=== PATIENT | female | born 1930 | race Caucasian/White ===

== ENCOUNTER → 2016-06-06 | Outpatient (CLI) | payer MEDICARE, BC | END | disposition home or self-care (01) | LOC: LABWHC1 15:23 | PROVIDERS: ATTEND Internal Medicine Gastroenterology | DX: K52.9 Noninfective gastroenteritis and colitis, unspecified (principal) | CPT/HCPCS: 36415; 83516; 85652; 86140 ==

== ENCOUNTER → 2017-03-06 | Outpatient (CLI) | payer MEDICARE, BC ==
--- NOTE | 2017-03-23 22:53 | EM ---
EVENT MONITOR There were several transmissions noted. Most of the transmissions revealed atrial fibrillation. There were episodes of bradycardia with pause of about 3.3 seconds to begin with. Apparently patient was on a beta larissa at that time, and once the beta larissa was discontinued around the then patient was in atrial fib with a controlled rate without any significant pauses. The longest pause that was noted was about 3.3 seconds that occurred in the 03/08/2017, and another one of 2.8 seconds occurred on the 03/15/2017. However after the when beta larissa was discontinued, patient did not have any further pauses, but remained in atrial fib with a controlled rate. Preliminary results were discussed with Dr. Koko Gold. MMBONIFACIO / NOAMN: [id number] /
== END | disposition home or self-care (01) ==
LOC: RADECHMAIN 11:54
PROVIDERS: ATTEND Internal Medicine
DX: I48.91 Unspecified atrial fibrillation (principal)
CPT/HCPCS: 93270; 93271

== ENCOUNTER → 2017-06-02 | Outpatient (CLI) | payer MEDICARE, BC ==
--- NOTE | 2017-06-02 14:01 | US ---
EXAMINATION TYPE: US venous doppler duplex LE RT DATE OF EXAM: 06/02/2017 12:55 PM COMPARISON: NONE CLINICAL HISTORY: I87.2 V LOWER EXTREMITY VENOUS INSUFFICIENCY, swelling and edema lateral mathis SIDE PERFORMED: right 1) Color flow is present and patency is documented in the following vessels. No DVT or SVT is noted . EIV Common Femoral Vein Deep Femoral Vein Femoral Vein Popliteal Vein Proximal Calf Veins Greater Saph Vein Upper Small Saph Vein 2) There is venous reflux noted at the following venous levels: Junction of GSV and LSV GSV at knee Generalized subcutaneous edema in the area of patient's stated pain over the right lateral mathis. IMPRESSION: 1. No sonographic evidence of deep venous thrombosis within the right lower extremity. 2. Venous reflux noted at the junction of the great saphenous vein and lesser saphenous vein and grea ter saphenous vein at the knee. 3. Generalized subcutaneous edema, moderate in degree over the lateral mathis in the patient's area of pain.
== END | disposition home or self-care (01) ==
LOC: RADUSWWP 12:21
PROVIDERS: ATTEND Internal Medicine
DX: I87.2 Venous insufficiency (chronic) (peripheral) (principal); I87.301 Chronic venous hypertension (idiopathic) without complications of right lower extremity

== ENCOUNTER → 2017-07-22 | Outpatient (CLI) | payer MEDICARE, BC ==
[2017-07-22 09:35] LABS: Calcium 9.3 mg/dL (8.4-10.2); Magnesium 2.3 mg/dL (1.6-2.3); Potassium 4.5 mmol/L (3.5-5.1)
[2017-07-22 09:50] LABS: T4, Free (Free Thyroxine) 1.29 ng/dL (0.78-2.19)
== END | disposition home or self-care (01) ==
LOC: LABWHC1 08:42
PROVIDERS: ATTEND Internal Medicine Endocrinology, Diabetes & Metabolism
DX: M81.0 Age-related osteoporosis without current pathological fracture (principal); E89.0 Postprocedural hypothyroidism
CPT/HCPCS: 36415; 80048; 82306; 83735; 84439; 84443

== ENCOUNTER 2017-12-03 17:03 | Inpatient (IN) | payer MEDICARE, BC ==
[2017-12-03] MEDS ORDERED: ASPIRIN 81 MG PO STA (17:42)
[2017-12-03] MEDS ORDERED: NITROGLYCERIN OINT 1 INCH/GM PACKET TOPICAL STA (17:42)
[2017-12-03] MEDS ORDERED: FUROSEMIDE 10 MG/ML 2 ML VIAL IV STA (17:42)
--- NOTE | 2017-12-03 17:44 | ED ---
General Adult HPI - General Chief complaint: Shortness of Breath Stated complaint: DMITRI Time Seen by Provider: 12/03/17 17:10 Source: patient, RN notes reviewed Mode of arrival: wheelchair Limitations: no limitations - History of Present Illness Initial comments: This is an 87-year-old female presents emergency Department complaining of difficulty breathing for 4 days. Patient states she has a history of atrial fibrillation is on Coumadin for that. Patient also states she's had a stent in the past. Patient states along with the difficulty breathing she's had some chest pain. Patient states been intermittent since . Patient denies any radiation of the pain. Patient denies any recent fever chills or cough. Patient denies any diaphoresis. Patient denies any nausea vomiting diarrhea. Patient denies any abdominal pain. Patient denies being lightheaded or dizzy or having any near syncopal episode. - Related Data Home Medications Medication Instructions Recorded Confirmed ALPRAZolam [Xanax] 0.5 mg PO HS 12/03/17 12/03/17 Acetaminophen-Codeine 300-30mg 1 - 2 tab PO Q6H PRN 12/03/17 12/03/17 [Tylenol w/codeine #3] Carvedilol [Coreg] 3.125 mg PO BID 12/03/17 12/03/17 Ergocalciferol (Vitamin D2) 50,000 unit PO SA 12/03/17 12/03/17 [Vitamin D2] Furosemide [Lasix] 20 mg PO Q48H 12/03/17 12/03/17 Furosemide [Lasix] 40 mg PO Q48H 12/03/17 12/03/17 Isosorbide Mononitrate ER [Imdur] 30 mg PO DAILY 12/03/17 12/03/17 Latanoprost [Xalatan 0.005%] 1 drop BOTH EYES HS 12/03/17 12/03/17 Levothyroxine Sodium 112 mcg PO DAILY 12/03/17 12/03/17 Lisinopril [Zestril] 20 mg PO DAILY 12/03/17 12/03/17 Nitroglycerin Sl Tabs [Nitrostat] 0.4 mg SUBLINGUAL Q5M PRN 12/03/17 12/03/17 Pantoprazole Sodium [Protonix] 40 mg PO DAILY 12/03/17 12/03/17 Potassium Chloride [Klor-Con 10 meq PO DAILY 12/03/17 12/03/17 Sprinkle] Pravastatin Sodium [Pravachol] 40 mg PO HS 12/03/17 12/03/17 Ranitidine HCl 150 mg PO DAILY 12/03/17 12/03/17 Warfarin [Coumadin] 1 mg PO SUMOTUWEFRSA 12/03/17 12/03/17 Warfarin [Coumadin] 2 mg PO TH 12/03/17 12/03/17 methylPREDNISolone [Medrol Dose See Taper PO DIRECTED 12/03/17 12/03/17 Pack] Allergies Allergy/AdvReac Type Severity Reaction Status Date / Time brimonidine [From Simbrinza] Allergy Unknown Verified 12/03/17 17:50 brinzolamide [From Simbrinza] Allergy Unknown Verified 12/03/17 17:50 Review of Systems ROS Statement: Those systems with pertinent positive or pertinent negative responses have been documented in the HPI. ROS Other: All systems not noted in ROS Statement are negative. Past Medical History Past Medical History: Atrial Fibrillation, Coronary Artery Disease (CAD), Chest Pain / Angina, GERD/Reflux, Hyperlipidemia, Hypertension, Thyroid Disorder History of Any Multi-Drug Resistant Organisms: None Reported Past Surgical History: Heart Catheterization With Stent, Orthopedic Surgery Past Psychological History: No Psychological Hx Reported Smoking Status: Former smoker Past Alcohol Use History: None Reported Past Drug Use History: None Reported General Exam - General Exam Comments Initial Comments: GENERAL: Patient is well-developed and well-nourished. Patient is nontoxic and well- hydrated and is in mild distress. ENT: Neck is soft and supple. No significant lymphadenopathy is noted. Oropharynx is clear. Moist mucous membranes. Neck has full range of motion without eliciting any pain. EYES: The sclera were anicteric and conjunctiva were pink and moist. Extraocular movements were intact and pupils were equal round and reactive to light. Eyelids were unremarkable. PULMONARY: Unlabored respirations. Good breath sounds bilaterally. No audible rales rhonchi or wheezing was noted. CARDIOVASCULAR: There is a regular rate and rhythm without any murmurs gallops or rubs. ABDOMEN: Soft and nontender with normal bowel sounds. No palpable organomegaly was noted. There is no palpable pulsatile mass. SKIN: Skin is clear with no lesions or rashes and otherwise unremarkable. NEUROLOGIC: Patient is alert and oriented x3. Cranial nerves II through XII are grossly intact. Motor and sensory are also intact. Normal speech, volume and content. Symmetrical smile. MUSCULOSKELETAL: Normal extremities with adequate strength and full range of motion. 2+ edema to the right leg and 1+ edema to the left leg LYMPHATICS: No significant lymphadenopathy is noted PSYCHIATRIC: Normal psychiatric evaluation. Limitations: no limitations Course Vital Signs 12/03/17 17:08 Temperature 98.1 F Pulse Rate 87 Respiratory 20 Rate Blood Pressure 197/79 O2 Sat by Pulse 96 Oximetry Medical Decision Making - Medical Decision Making EKG shows atrial for ablation with rapid ventricular response at 107 bpm QRS is 80 QT interval is 292 QTC is 389. Patient's EKG shows no ST segment elevation or depression or T wave abnormalities are noted Chest x-ray shows pulmonary edema. I gave the patient Lasix Nitropaste in the emergency department. I spoke with some physicians admitted the patient I wrote admitting orders I continued Nitropaste and Lasix on the floor. I consult to cardiology. - Lab Data Result diagrams: 12/03/17 17:43 12/03/17 17:43 Lab Results 12/03/17 12/03/17 Range/Units 17:43 17:43 WBC 8.2 (3.8-10.6) k/uL RBC 3.58 L (3.80-5.40) m/uL Hgb 10.4 L (11.4-16.0) gm/dL Hct 33.5 L (34.0-46.0) % MCV 93.7 (80.0-100.0) fL MCH 29.2 (25.0-35.0) pg MCHC 31.1 (31.0-37.0) g/dL RDW 14.8 (11.5-15.5) % Plt Count 279 (150-450) k/uL Neutrophils % 88 % Lymphocytes % 7 % Monocytes % 4 % Eosinophils % 1 % Basophils % 0 % Neutrophils # 7.2 (1.3-7.7) k/uL Lymphocytes # 0.6 L (1.0-4.8) k/uL Monocytes # 0.3 (0-1.0) k/uL Eosinophils # 0.0 (0-0.7) k/uL Basophils # 0.0 (0-0.2) k/uL Hypochromasia Slight Sodium 141 (137-145) mmol/L Potassium 5.1 (3.5-5.1) mmol/L Chloride 108 H (98-107) mmol/L Carbon Dioxide 24 (22-30) mmol/L Anion Gap 9 mmol/L BUN 52 H (7-17) mg/dL Creatinine 1.57 H (0.52-1.04) mg/dL Est GFR (CKD-EPI)AfAm 34 (>60 ml/min/1.73 sqM) Est GFR (CKD-EPI)NonAf 30 (>60 ml/min/1.73 sqM) Glucose 109 H (74-99) mg/dL Calcium 8.0 L (8.4-10.2) mg/dL Magnesium 2.4 H (1.6-2.3) mg/dL Total Bilirubin 0.4 (0.2-1.3) mg/dL AST 37 H (14-36) U/L ALT 38 (9-52) U/L Alkaline Phosphatase 66 (38-126) U/L Total Protein 6.8 (6.3-8.2) g/dL Albumin 3.8 (3.5-5.0) g/dL Critical Care Time Critical Care Time: Yes Total Critical Care Time: 35 Disposition Clinical Impression: Acute pulmonary edema Disposition: ADMITTED IP TO THIS HOSP Referrals: Koko Gold MD [Primary Care Provider] - 1-2 days Time of Disposition: 18:19
[2017-12-03 18:00] LABS: Basophils % (A) 0 %; Eosinophils % (A) 1 %; HCT 33.5 % (34.0-46.0); HGB 10.4 gm/dL (11.4-16.0); Hypochromasia Slight; Lymphocytes # (A) 0.6 k/uL (1.0-4.8); Lymphocytes % (A) 7 %; MCH 29.2 pg (25.0-35.0); MCHC 31.1 g/dL (31.0-37.0); MCV 93.7 fL (80.0-100.0); Mean Platelet Volume 7.2; Monocytes # (A) 0.3 k/uL (0-1.0); Monocytes % (A) 4 %; Neutrophils # (A) 7.2 k/uL (1.3-7.7); Neutrophils % (A) 88 %; Platelet Count 279 k/uL (150-450); RBC 3.58 m/uL (3.80-5.40); RDW 14.8 % (11.5-15.5); WBC 8.2 k/uL (3.8-10.6)
[2017-12-03 18:11] LABS: Albumin 3.8 g/dL (3.5-5.0); Magnesium 2.4 mg/dL (1.6-2.3); Potassium 5.1 mmol/L (3.5-5.1); Total Bilirubin 0.4 mg/dL (0.2-1.3); Total Protein 6.8 g/dL (6.3-8.2)
--- NOTE | 2017-12-03 18:11 | XR ---
EXAMINATION TYPE: XR chest 2V DATE OF EXAM: 12/03/2017 COMPARISON: Chest x-ray November 10, 2012 HISTORY: History of asthma and atrial fibrillation with dyspnea. TECHNIQUE: Frontal and lateral views of the chest are obtained. FINDINGS: There is chronic parenchymal change with new central vascular congestion and small bilater al pleural effusions. The cardiac silhouette size is enlarged. The osseous structures remain demin eralized. IMPRESSION: Correlate for CHF exacerbation as there is cardiomegaly with central vascular congestion and small bilateral pleural effusions.
[2017-12-03 18:18] LABS: INR 1.4 (<1.2); Prothrombin Time 13.1 sec (9.0-12.0)
[2017-12-03 18:32] LABS: Creatine Kinase MB 1.4 ng/mL (0.0-2.4); Troponin I 0.026 ng/mL (0.000-0.034)
[2017-12-03] MEDS ORDERED: NITROGLYCERIN SL TABS 0.4 MG TAB SUBLINGUAL PRN (19:05)
[2017-12-03] MEDS ORDERED: NALOXONE 0.4 MG/ML 1 ML VIAL IV PRN (19:08)
[2017-12-03] MEDS ORDERED: MORPHINE SULFATE 2 MG/ML SYRINGE IVP STA (20:43)
[2017-12-03] MEDS ORDERED: MORPHINE SULFATE 2 MG/ML SYRINGE IVP PRN (20:45)
[2017-12-03] MEDS ORDERED: ALPRAZolam 0.5 MG TAB PO SCH (21:00)
[2017-12-03] MEDS ORDERED: WARFARIN 2 MG TAB PO ONE (22:00)
--- NOTE | 2017-12-03 22:02 | US ---
EXAMINATION TYPE: US venous doppler duplex LE RT DATE OF EXAM: 12/03/2017 9:55 PM COMPARISON: Right lower extremity venous ultrasound June 02, 2017 CLINICAL HISTORY: tenderness, recent surgery, r/o blood clot . Right knee replacement 10/10/17. Pain and edema right knee. Patient on Coumadin - AFIB SIDE PERFORMED: right TECHNIQUE: The lower extremity deep venous system is examined utilizing real time linear array sonog adriana with graded compression, doppler sonography and color-flow sonography. VESSELS IMAGED: External Iliac Vein (EIV) Common Femoral Vein Deep Femoral Vein Greater Saphenous Vein * Femoral Vein Popliteal Vein Small Saphenous Vein * Proximal Calf Veins (* superficial vessels) Right Leg: No evidence of DVT as visualized. Grayscale, color doppler, spectral doppler imaging performed of the deep veins of the right lower ext remity. There is normal flow, compressibility, vascular waveforms. IMPRESSION: No ultrasound evidence for acute DVT in the right lower extremity.
--- NOTE | 2017-12-03 22:05 | P.HPIM ---
History of Present Illness H&P Date: 12/03/17 Chief Complaint: DMITRI of 3-4 days duration 87 year old female with history of Afib on coumadin, hypertension, CAD s/p stent patient presented with 3-4 days history of new onset DMITRI, limiting her activity , which got worse over the past 3 days. she reports history of asthma, but currently is not treated and has not had a flare up in many years. she does not even take any inhalers. She has noticed worsening bilateral leg swelling over the past week . she denies any history of CHF, she denies any chest pain, but does feel tight in the chest and is not sure regarding orthopnea, however, she does admit to PNDs. denies any coughing or wheezing, but does report some runny nose. she denies any recent traveling, but she had right knee replacement done about 7-8 weeks ago. however, it was complicated by infection at site of surgery , patient is not sure wether it was skin infection(cellulitis) or actual infection in the joint, but denies any fpc antibiotics, or surgery revision. in the ED, she was found to have pulmonary congestion and elevated blood pressure, with elevated Pro BNP. she was started on IV lasix , and nitropaste, she was also given supplemental oxygen via nasal canula. She added that her right leg hurts to the touch when i was examining her. she otherwise denies any abd pain, nausea, vomiting, focal neurological deficits , GI bleeding. Review of Systems Pertinent positives as noted in HPI. All other systems were reviewed and are negative Past Medical History Past Medical History: Atrial Fibrillation, Coronary Artery Disease (CAD), Chest Pain / Angina, GERD/Reflux, Hyperlipidemia, Hypertension, Thyroid Disorder History of Any Multi-Drug Resistant Organisms: None Reported Past Surgical History: Cholecystectomy, Heart Catheterization With Stent, Hysterectomy, Orthopedic Surgery Past Psychological History: No Psychological Hx Reported Smoking Status: Former smoker Past Alcohol Use History: None Reported Past Drug Use History: None Reported - Past Family History family Additional Family Medical History / Comment(s): denies family history of cancer or DM in her mother Medications and Allergies Home Medications Medication Instructions Recorded Confirmed Type ALPRAZolam [Xanax] 0.5 mg PO HS 12/03/17 12/03/17 History Acetaminophen-Codeine 300-30mg 1 - 2 tab PO Q6H PRN 12/03/17 12/03/17 History [Tylenol w/codeine #3] Carvedilol [Coreg] 3.125 mg PO BID 12/03/17 12/03/17 History Ergocalciferol (Vitamin D2) 50,000 unit PO SA 12/03/17 12/03/17 History [Vitamin D2] Furosemide [Lasix] 20 mg PO Q48H 12/03/17 12/03/17 History Furosemide [Lasix] 40 mg PO Q48H 12/03/17 12/03/17 History Isosorbide Mononitrate ER [Imdur] 30 mg PO DAILY 12/03/17 12/03/17 History Latanoprost [Xalatan 0.005%] 1 drop BOTH EYES HS 12/03/17 12/03/17 History Levothyroxine Sodium 112 mcg PO DAILY 12/03/17 12/03/17 History Lisinopril [Zestril] 20 mg PO DAILY 12/03/17 12/03/17 History Nitroglycerin Sl Tabs [Nitrostat] 0.4 mg SUBLINGUAL Q5M PRN 12/03/17 12/03/17 History Pantoprazole Sodium [Protonix] 40 mg PO DAILY 12/03/17 12/03/17 History Potassium Chloride [Klor-Con 10 meq PO DAILY 12/03/17 12/03/17 History Sprinkle] Pravastatin Sodium [Pravachol] 40 mg PO HS 12/03/17 12/03/17 History Ranitidine HCl 150 mg PO DAILY 12/03/17 12/03/17 History Warfarin [Coumadin] 1 mg PO SUMOTUWEFRSA 12/03/17 12/03/17 History Warfarin [Coumadin] 2 mg PO TH 12/03/17 12/03/17 History methylPREDNISolone [Medrol Dose See Taper PO DIRECTED 12/03/17 12/03/17 History Pack] Allergies Allergy/AdvReac Type Severity Reaction Status Date / Time brimonidine [From Simbrinza] Allergy Unknown Verified 12/03/17 17:50 brinzolamide [From Simbrinza] Allergy Unknown Verified 12/03/17 17:50 Physical Exam Vitals: Vital Signs Temp Pulse Resp BP Pulse Ox 12/03/17 17:08 98.1 F 87 20 197/79 96 Intake and Output 12/03/17 12/03/17 12/03/17 06:59 14:59 22:59 Other: Weight 70.307 kg Constitutional: Patient is sitting in bed, looks anxious, cooperative, talking full sentences, well developed Eyes: Anicteric sclerae, moist conjunctiva, no lid-lag Pupils equal round reactive to light ENMT: NC/AT Oropharynx clear, no erythema, exudates Neck: Supple, FROM, no masses, positive JVD No carotid bruits No thyromegaly Lungs: Clear to auscultation overall , good breath sounds bilaterally , some decreased breath sounds at lung bases. no wheezing, no rhonci. no rales Clear to percussion Normal respiratory effort, no accessory muscle use Cardiovascular: Heart irregular , tachy No murmurs, gallops, or rubs +2 peripheral edema bilaterally in both legs, tenderness to palpation of the right leg, no erythema. positive for varicose veins Abdominal: Soft Nontender, no guarding, rebound or rigidity Abdomen moving with respiration Normoactive bowel sounds No hepatomegaly, No splenomegaly No palpable mass No abdominal wall hernia noted Skin: Normal temperature, tone, texture, turgor No induration No subcutaneous nodules No rash, lesions No ulcers Extremities: No digital cyanosis No clubbing Pedal pulses intact and symmetrical Radial pulses intact and symmetrical Psychiatric: Alert and oriented to person, place and time Appropriate affect fair judgment Neuro Muscles Strength 4/5 in all 4 extremities Sensation to light touch grossly present throughout Cranial nerves II-XII grossly intact No focal sensory deficits Lymphatics: no palpable cervical or supraclavicular , or inguinal lymph nodes Results CBC & Chem 7: 12/03/17 17:43 12/03/17 17:43 Labs: Abnormal Lab Results - Last 24 Hours (Table) 12/03/17 12/03/17 12/03/17 Range/Units 17:43 17:43 17:43 RBC 3.58 L (3.80-5.40) m/uL Hgb 10.4 L (11.4-16.0) gm/dL Hct 33.5 L (34.0-46.0) % Lymphocytes # 0.6 L (1.0-4.8) k/uL PT 13.1 H (9.0-12.0) sec INR 1.4 H (<1.2) APTT 21.0 L (22.0-30.0) sec Chloride 108 H (98-107) mmol/L BUN 52 H (7-17) mg/dL Creatinine 1.57 H (0.52-1.04) mg/dL Glucose 109 H (74-99) mg/dL Calcium 8.0 L (8.4-10.2) mg/dL Magnesium 2.4 H (1.6-2.3) mg/dL AST 37 H (14-36) U/L Assessment and Plan Assessment: 87 year old female, with history of afib on coumadin, CAD s/p stents, admitted as observation with anticipated length of stay of <48 hours, for difficulty in breathing, in the ED she was found to have elevated blood pressure and vascular congestion on her chest xray, along with mild bilateral pleural effusion, she was thought to have clinical CHF from afib with RVR vs new onset CHF. another possibility that should be added to her differential is pulmonary embolism, she is on coumadin for afib, however she recently had knee replacement (7-8 weeks ago) and she was found to have subtheraputic INR, however, her oxygen saturation was 96% on room air. She has swelling of bilateral legs, however, her right leg with tenderness to palpation, this will need venous duplex US to r /o DVT. 2 D echocardiogram will be obtained too. otherwise will continue with supportive care with oxygen via nasal canula as needed, blood pressure control, currently on morphine and nitropaste, continue her coumadin, and obtain cardiology consult. Plan: Difficulty in breathing possibly secondary to afib with RVR, pulmonary congestion with hypertension, r/o new onset CHF, less likely could be acute PE however patient did not have hypoxemia chronic Afib with RVR, on coumadin Malignant hypertension with pulmonary congestion CKD 3 stable history of CAD s/p stent Hypothyroid , stable continue levothyroxine chronic anemia, currently stable, denies any evidence of GI bleeding supportive care nitropaste PRN morphine IV lasix continue coreg and home meds monitor cardiac enzymes, cardiac monitoring cardiology consult venous duplex US right leg echocardiogram continue ASA ,, statin Preformed a thorough record review from recent hospitalization no prior hospitalizations found in the electronic records Surrogate decision-maker: her family CODE STATUS:full code DVT prophylaxis: heparin sc while INR subtheraputic Discussed with: Patient, ER, RN Anticipated discharge: <[address]: home A total of 50 minutes was spent on the care of this complex patient more than 50 % of the time was spent in counseling and care coordination.
[2017-12-03] MEDS: LATANOPROST 0.005% OPHTH DROPS 2.5 ML BTL BOTH EYES SCH (22:33)
[2017-12-03] MEDS: PRAVASTATIN SODIUM 40 MG TAB PO SCH (22:33)
[2017-12-03] MEDS: CARVEDILOL 3.125 MG TAB PO SCH (22:33)
[2017-12-04] MEDS ORDERED: FUROSEMIDE 10 MG/ML 4 ML VIAL IV SCH
[2017-12-04] MEDS: HEPARIN SODIUM,PORCINE 5,000 UNIT/ML 1 ML VIAL SQ SCH ×2 (00:01→10:04)
[2017-12-04 07:30] LABS: Basophils % (A) 0 %; Eosinophils % (A) 0 %; HCT 31.6 % (34.0-46.0); Hypochromasia Slight; Lymphocytes # (A) 0.7 k/uL (1.0-4.8); Lymphocytes % (A) 8 %; MCH 29.8 pg (25.0-35.0); MCHC 31.6 g/dL (31.0-37.0); MCV 94.5 fL (80.0-100.0); Monocytes # (A) 0.5 k/uL (0-1.0); Monocytes % (A) 6 %; Neutrophils # (A) 7.5 k/uL (1.3-7.7); Neutrophils % (A) 85 %; Platelet Count 256 k/uL (150-450); RBC 3.34 m/uL (3.80-5.40); RDW 14.8 % (11.5-15.5); WBC 8.8 k/uL (3.8-10.6)
[2017-12-04 07:41] LABS: Albumin 3.3 g/dL (3.5-5.0); Calcium 7.6 mg/dL (8.4-10.2); Magnesium 2.3 mg/dL (1.6-2.3); Phosphorus 4.4 mg/dL (2.5-4.5); Potassium 5.2 mmol/L (3.5-5.1); Total Bilirubin 0.3 mg/dL (0.2-1.3)
[2017-12-04] MEDS ORDERED: ACETAMINOPHEN TAB 325 MG TAB PO PRN (08:15)
[2017-12-04] MEDS ORDERED: HYDROcodone/APAP 5-325MG 1 EACH TAB PO PRN (08:16)
[2017-12-04] MEDS ORDERED: NON-FORMULARY DRUG (Ranitidine Hcl [Ranitidine Hcl] 150 MG) PO SCH (09:00)
[2017-12-04] MEDS ORDERED: ASPIRIN 325 MG TAB PO SCH (09:00)
--- NOTE | 2017-12-04 09:25 | P.PN ---
Subjective Progress Note Date: 12/04/17 Principal diagnosis: shortness of breath Patient is a 87-year-old female past medical history of A. fib on chronic Coumadin therapy, hypertension, coronary artery disease status post stent who initially presented to the ER with complaints of shortness of breath and bilateral lower extremity edema. In the ER she underwent an extensive exam. Her initial vital signs show elevated blood pressure at 197/79. EKG demonstrated A. fib at a rate of 107. Initial laboratory analysis showed a slightly low INR at 1.4. Her creatinine was 1.57 which is consistent with her baseline. BNP was 8850 and troponin was negative. Chest x-ray showed vascular congestion with small bilateral pleural effusions consistent with CHF. Patient was started on Nitropaste, given a dose of Lasix, and a dose of aspirin. She was admitted to the selective care unit for further monitoring for acute exacerbation of congestive heart failure, newly discovered. Of note patient had a right knee replacement 7 weeks ago that has been complicated by infection at the site of surgery and fluid retention. Patient had her knee drained at Dr. Koroma's office 4 days ago. Patient seen and examined at bedside. She complains of abdominal pain at 4 in the morning associated with shortness of breath. Initially she states that the pain was a bandlike in nature. She initially points to her lower abdomen. When I state that she had pain in her lower abdomen she corrects and moves her hands words. She states that it was a squeezing pain. She denies any nausea. She denies any dysuria. She's had no urinary frequency. She has not had pain like this prior. She states her shortness of breath feels somewhat improved today. Objective - Vital Signs Vital signs: Vital Signs Temp 97.6 F 12/04/17 00:00 Pulse 77 12/04/17 04:00 Resp 17 12/04/17 04:00 BP 168/93 12/04/17 04:00 Pulse Ox 98 12/04/17 04:00 Intake & Output 12/03/17 12/04/17 12/04/17 18:59 06:59 18:59 Intake Total 50 Output Total 300 Balance -250 Weight 70.307 kg 73.3 kg Intake: Amount of Fluid Infused ( 50 ml) Output: Urine 300 Other: Voiding Method Bedside Commode # Voids 0 - Exam General: non toxic, no distress, appears at stated age Derm: warm, dry Head: atraumatic, normocephalic, symmetric Eyes: EOMI, no lid lag, anicteric sclera Mouth: no lip lesion, mucus membranes moist Cardiovascular: S1S2 reg, no murmur, positive posterior tibial pulse bilateral, Lungs: Rhonchi left base, no rhonchi, no rales , no accessory muscle use Abdominal: soft, nontender to palpation, no guarding, no appreciable organomegaly Ext: no gross muscle atrophy, 2+ edema right greater than left, no contractures Neuro: CN II-XI grossly intact, no focal neuro deficits Psych: Alert, oriented, very anxious - Labs CBC & Chem 7: 12/04/17 06:57 12/04/17 06:57 Labs: Abnormal Lab Results - Last 24 Hours (Table) 12/03/17 12/03/17 12/03/17 Range/Units 17:43 17:43 17:43 RBC 3.58 L (3.80-5.40) m/uL Hgb 10.4 L (11.4-16.0) gm/dL Hct 33.5 L (34.0-46.0) % Lymphocytes # 0.6 L (1.0-4.8) k/uL PT 13.1 H (9.0-12.0) sec INR 1.4 H (<1.2) APTT 21.0 L (22.0-30.0) sec Potassium (3.5-5.1) mmol/L Chloride 108 H (98-107) mmol/L BUN 52 H (7-17) mg/dL Creatinine 1.57 H (0.52-1.04) mg/dL Glucose 109 H (74-99) mg/dL Calcium 8.0 L (8.4-10.2) mg/dL Magnesium 2.4 H (1.6-2.3) mg/dL AST 37 H (14-36) U/L Total Protein (6.3-8.2) g/dL Albumin (3.5-5.0) g/dL 12/04/17 12/04/17 Range/Units 06:57 06:57 RBC 3.34 L (3.80-5.40) m/uL Hgb 10.0 L (11.4-16.0) gm/dL Hct 31.6 L (34.0-46.0) % Lymphocytes # 0.7 L (1.0-4.8) k/uL PT (9.0-12.0) sec INR (<1.2) APTT (22.0-30.0) sec Potassium 5.2 H (3.5-5.1) mmol/L Chloride 109 H (98-107) mmol/L BUN 54 H (7-17) mg/dL Creatinine 1.63 H (0.52-1.04) mg/dL Glucose (74-99) mg/dL Calcium 7.6 L (8.4-10.2) mg/dL Magnesium (1.6-2.3) mg/dL AST (14-36) U/L Total Protein 6.0 L (6.3-8.2) g/dL Albumin 3.3 L (3.5-5.0) g/dL Assessment and Plan Assessment: Probable acute exacerbation of congestive heart failure -No history of congestive heart failure but elevated BNP and signs of fluid overload on chest x-ray -Consult cardiology -Telemetry, echo -Check TSH -Lasix -Continue beta larissa and NAWAF inhibitor. -Strict I's and O's, daily weight Chronic kidney disease stage III -Creatinine baseline of approximately 1.3-1.5 -Appears at or near baseline -Continue with diuresis and NAWAF inhibitor. If creatinine increases tomorrow would consider discontinuation of ACEI. Atrial fibrillation, currently rate controlled with subtherapeutic INR -Telemetry, cardiology consultation -Coumadin management as per pharmacy -Coreg Hypertensive urgency, improved -Continue with Coreg, lisinopril, Imdur, and diuresis with Lasix -Follow blood pressures Abdominal pain -Undetermined etiology -Check urinalysis -Further investigation if pain recurs Coronary artery disease -Continue with beta larissa, statin, and aspirin Chronic anemia -Appears better than baseline -Follow CBC -Further outpatient evaluation Hypothyroidism -Check TSH -Continue with levothyroxine Patient continues to have symptoms despite multiple doses of IV Lasix DVT prophylaxis: On Coumadin Discussed with: Patient, nursing, ed case manager Anticipated discharge: 2-[address]: Home with home health A total of 35 minutes was spent on the care of this complex patient more than 50 % of the time was spent in counseling and care coordination.
[2017-12-04 09:37] LABS: INR 1.5 (<1.2); Prothrombin Time 13.5 sec (9.0-12.0)
[2017-12-04] MEDS: ISOSORBIDE MONONITRATE ER 30 MG TAB.ER.24H PO SCH (10:04)
[2017-12-04] MEDS: PANTOPRAZOLE 40 MG TABLET PO SCH (10:04)
[2017-12-04] MEDS: LISINOPRIL 20 MG TAB PO SCH (10:04)
[2017-12-04] MEDS: LEVOTHYROXINE 112 MCG TAB PO SCH (10:04)
[2017-12-04] MEDS: FUROSEMIDE 10 MG/ML 4 ML VIAL IV SCH ×2 (10:05→20:10)
[2017-12-04] MEDS: CARVEDILOL 3.125 MG TAB PO SCH ×2 (10:09→20:10)
[2017-12-04 10:57] LABS: Appearance,Urine Clear (Clear); Bilirubin,Urine Negative (Negative); Blood,Urine Negative (Negative); Color,Urine Light Yellow; Glucose,Urine (UA) Negative (Negative); Hyaline Casts,Urine 6 /lpf (0-2); Ketones,Urine Negative (Negative); Leukocyte Esterase,Urine Trace (Negative); Mucus,Urine Rare /hpf; Nitrite,Urine Negative (Negative); Protein,Urine Negative (Negative); Specific Gravity,Urine 1.008 (1.001-1.035); Squamous Epithelial Cell,Urine <1 /hpf (0-4); Urobilinogen,Urine <2.0 mg/dL (<2.0)
[2017-12-04] MEDS: HEPARIN SOD,PORK IN 0.45% NACL 25,000 UNIT in 0.45% NACL 1 500ML.BAG IV SCH (11:24)
--- NOTE | 2017-12-04 11:50 | ECHOF ---
Referral Reason:evaluate LV function MEASUREMENTS -------- HEIGHT: 152.4 cm WEIGHT: 73.0 kg BP: 168/93 RVIDd: 3.2 cm (< 3.3) IVSd: 1.2 cm (0.6 - 1.1) LVIDd: 3.8 cm (3.9 - 5.3) LVPWd: 1.3 cm (0.6 - 1.1) IVSs: 1.6 cm LVIDs: 2.5 cm LVPWs: 1.9 cm LA Diam: 3.8 cm (2.7 - 3.8) LAESV Index (A-L): 36.45 ml/m MV EXCURSION: 17.701 mm (> 18.000) MV EF SLOPE: 95 mm/s (70 - 150) EPSS: 0.3 cm MV E Pete: 1.26 m/s MV DecT: 207 ms MV A Pete: 0.30 m/s MV E/A Ratio: 4.23 RAP: 5.00 mmHg RVSP: 47.50 mmHg FINDINGS -------- Undetermined rhythm. This was a technically adequate study. The left ventricular size is normal. There is borderline concentric left ventricular hypertrophy. Overall left ventricular systolic function is low-normal with, an EF between 50 - 55 %. The right ventricle is mildly enlarged. The left atrium is mildly dilated. LA is moderately dilated 34-39 ml/m2 The right atrial size is normal. There is mild aortic valve sclerosis. There is mild aortic regurgitation. Mild mitral annular calcification present. Moderate mitral regurgitation is present. Mild tricuspid regurgitation present. There is moderate pulmonary hypertension. The right ventric ular systolic pressure, as measured by Doppler, is 47.50mmHg. Trace/mild (physiologic) pulmonic regurgitation. The aortic root size is normal. There is a small pericardial effusion is located near the right atrium. CONCLUSIONS -------- 1. The left ventricular size is normal. 2. There is borderline concentric left ventricular hypertrophy. 3. Overall left ventricular systolic function is low-normal with, an EF between 50 - 55 %. 4. The right ventricle is mildly enlarged. 5. The left atrium is mildly dilated. 6. LA is moderately dilated 34-39 ml/m2 7. The right atrial size is normal. 8. There is mild aortic valve sclerosis. 9. There is mild aortic regurgitation. 10. Mild mitral annular calcification present. 11. Moderate mitral regurgitation is present. 12. Mild tricuspid regurgitation present. 13. There is moderate pulmonary hypertension. 14. The right ventricular systolic pressure, as measured by Doppler, is 47.50mmHg. 15. Trace/mild (physiologic) pulmonic regurgitation. 16. The aortic root size is normal. 17. There is a small pericardial effusion is located near the right atrium. BRIMMER BLOCKER: Deepthi Bolivar RDCS
--- NOTE | 2017-12-04 12:27 | P.CNPUL ---
History of Present Illness Consult date: 12/04/17 Requesting physician: Iva Leach Reason for consult: dyspnea, other Chief complaint: Progressive dyspnea, orthopnea, swelling in bilateral lower extremities History of present illness: This is a 87-year-old white female patient progressive dyspnea, orthopnea, increased swelling in bilateral lower extremities, and abdomen. Patient's symptoms started on , and became progressively worse. Patient had some chest tightness on and off since . No fever, no chills, no cough. Diaphoresis. No nausea, vomiting or diarrhea. No abdominal pain. No lightheadedness, or dizziness. Patient has a history of chronic atrial fibrillation, on Coumadin. Patient had a recent right knee replacement in [place] [address] Koroma, and was undergoing rehabilitation at [facility]. Patient had a recent swelling, redness, and increased temperature of the right knee, and fluid was withdrawn from the knee, patient was treated with antibiotics in the form of clindamycin, and prednisone. Currently the right knee is no longer swollen, no redness, or warmth. No pain. Patient was noted to have increased swelling in lower extremities, and there is evidence of chronic venous stasis changes. He is not on any oxygen at home, patient is a remote smoker, quit smoking 30 years ago. Chest x-ray showed chronic parenchymal changes with new central vascular congestion and small bilateral pleural effusions. EKG showed atrial fibrillation with rapid ventricular response with a rate of 107 BPM. Right lower leg venous Doppler showed no evidence of DVT. Echocardiogram was completed, and showed overall left ventricular systolic function with an EF between 50-55%, there was moderate mitral regurgitation, mild tricuspid regurgitation and moderate pulmonary hypertension with right ventricular systolic pressure with a pressure of 47 mmHg. Lab work did not show any evidence of leukocytosis, WBC is 8.2, hemoglobin is 10.4, INR is 1.4, d-dimer was elevated to 4.15, sodium was 141, potassium is 5.1, chloride is 108, BUN is 52, creatinine 1.57, her BNP was elevated at 8850, troponin was 0.026. Patient was started on IV diuretics, she was placed on IV heparin, transdermal nitroglycerin ointment, and cardiology has been consulted. Patient is feeling better today, reading easier, diuresing. Review of Systems All systems: negative Constitutional: Denies chills, Denies fever Eyes: denies blurred vision, denies pain Ears, nose, mouth and throat: Denies headache, Denies sore throat Cardiovascular: Denies chest pain, Denies shortness of breath Respiratory: Denies cough Gastrointestinal: Denies abdominal pain, Denies diarrhea, Denies nausea, Denies vomiting Genitourinary: Denies dysuria, Denies hematuria Musculoskeletal: Denies myalgias Integumentary: Denies pruritus, Denies rash Neurological: Denies numbness, Denies weakness Psychiatric: Denies anxiety, Denies depression Endocrine: Denies fatigue, Denies weight change Past Medical History Past Medical History: Atrial Fibrillation, Coronary Artery Disease (CAD), Chest Pain / Angina, GERD/Reflux, Hyperlipidemia, Hypertension, Thyroid Disorder History of Any Multi-Drug Resistant Organisms: None Reported Past Surgical History: Cholecystectomy, Heart Catheterization With Stent, Hysterectomy, Orthopedic Surgery Additional Past Surgical History / Comment(s): right knee replacement, carpal tunnel Past Anesthesia/Blood Transfusion Reactions: No Reported Reaction Date of Last Stent Placement:: 2013 Past Psychological History: No Psychological Hx Reported Smoking Status: Former smoker Past Alcohol Use History: None Reported Past Drug Use History: None Reported - Past Family History Daughter(s) Additional Family Medical History / Comment(s): short term memory loss Father Additional Family Medical History / Comment(s): denies family history of cancer or DM in her mother Medications and Allergies Home Medications Medication Instructions Recorded Confirmed Type ALPRAZolam [Xanax] 0.5 mg PO HS 12/03/17 12/03/17 History Acetaminophen-Codeine 300-30mg 1 - 2 tab PO Q6H PRN 12/03/17 12/03/17 History [Tylenol w/codeine #3] Carvedilol [Coreg] 3.125 mg PO BID 12/03/17 12/03/17 History Ergocalciferol (Vitamin D2) 50,000 unit PO SA 12/03/17 12/03/17 History [Vitamin D2] Furosemide [Lasix] 20 mg PO Q48H 12/03/17 12/03/17 History Furosemide [Lasix] 40 mg PO Q48H 12/03/17 12/03/17 History Isosorbide Mononitrate ER [Imdur] 30 mg PO DAILY 12/03/17 12/03/17 History Latanoprost [Xalatan 0.005%] 1 drop BOTH EYES HS 12/03/17 12/03/17 History Levothyroxine Sodium 112 mcg PO DAILY 12/03/17 12/03/17 History Lisinopril [Zestril] 20 mg PO DAILY 12/03/17 12/03/17 History Nitroglycerin Sl Tabs [Nitrostat] 0.4 mg SUBLINGUAL Q5M PRN 12/03/17 12/03/17 History Pantoprazole Sodium [Protonix] 40 mg PO DAILY 12/03/17 12/03/17 History Potassium Chloride [Klor-Con 10 meq PO DAILY 12/03/17 12/03/17 History Sprinkle] Pravastatin Sodium [Pravachol] 40 mg PO HS 12/03/17 12/03/17 History Ranitidine HCl 150 mg PO DAILY 12/03/17 12/03/17 History Warfarin [Coumadin] 1 mg PO SUMOTUWEFRSA 12/03/17 12/03/17 History Warfarin [Coumadin] 2 mg PO TH 12/03/17 12/03/17 History methylPREDNISolone [Medrol Dose See Taper PO DIRECTED 12/03/17 12/03/17 History Pack] Allergies Allergy/AdvReac Type Severity Reaction Status Date / Time brimonidine [From Simbrinza] Allergy Unknown Verified 12/03/17 22:17 brinzolamide [From Simbrinza] Allergy Unknown Verified 12/03/17 22:17 Physical Exam Vitals: Vital Signs Temp Pulse Pulse Resp BP BP Pulse Ox 12/04/17 08:30 98.3 F 72 18 136/84 100 12/04/17 04:00 77 17 168/93 98 12/04/17 00:00 97.6 F 71 18 154/75 100 12/03/17 21:11 100 22 184/98 100 12/03/17 17:08 98.1 F 87 20 197/79 96 Intake and Output 12/03/17 12/04/17 12/04/17 22:59 06:59 14:59 Intake Total 50 118 Output Total 300 Balance 50 -300 118 Intake: Amount of Fluid Infused ( 50 ml) Oral 118 Output: Urine 300 Other: Voiding Method Bedside Commode # Voids 0 2 Weight 70.307 kg 73.3 kg GENERAL EXAM: Alert, pleasant, 87-year-old white female, comfortable in no apparent distress. HEAD: Normocephalic/atraumatic. EYES: Normal reaction of pupils, equal size. Conjunctiva pink, sclera white. NOSE: Clear with pink turbinates. THROAT: No erythema or exudates. NECK: No masses, no JVD, no thyroid enlargement, no adenopathy. CHEST: No chest wall deformity. Symmetrical expansion. LUNGS: Equal air entry with bibasilar crackles CVS: Irregularly irregular rate and rhythm, normal S1 and S2, no gallops, no murmurs, no rubs ABDOMEN: Soft, nontender, obese. No hepatosplenomegaly, normal bowel sounds, no guarding or rigidity. EXTREMITIES: No clubbing, no cyanosis, 2+ pulses and upper and lower extremities. There is 1+ bilateral lower extremity edema, there is chronic venous stasis changes present, right knee surgical incision is clean dry and intact, there is no warmth, swelling or redness to the right knee MUSCULOSKELETAL: Muscle strength and tone normal. SPINE: No scoliosis or deformity SKIN: No rashes CENTRAL NERVOUS SYSTEM: Alert and oriented -3. No focal deficits, tone is normal in all 4 extremities. PSYCHIATRIC: Alert and oriented -3. Appropriate affect. Intact judgment and insight. Results - Laboratory Findings CBC and BMP: 12/04/17 06:57 12/04/17 06:57 PT/INR, D-dimer PT 13.5 sec (9.0-12.0) H 12/04/17 09:03 INR 1.5 (<1.2) H 12/04/17 09:03 D-Dimer 4.15 mg/L FEU (<0.60) H 12/04/17 09:03 Abnormal lab findings: Abnormal Labs 12/03/17 12/03/17 12/03/17 17:43 17:43 17:43 RBC 3.58 L Hgb 10.4 L Hct 33.5 L Lymphocytes # 0.6 L PT 13.1 H INR 1.4 H APTT 21.0 L D-Dimer Potassium Chloride 108 H BUN 52 H Creatinine 1.57 H Glucose 109 H Calcium 8.0 L Magnesium 2.4 H AST 37 H Total Protein Albumin Ur Leukocyte Esterase Hyaline Casts Urine Mucus 12/04/17 12/04/17 12/04/17 06:57 06:57 09:03 RBC 3.34 L Hgb 10.0 L Hct 31.6 L Lymphocytes # 0.7 L PT 13.5 H INR 1.5 H APTT D-Dimer Potassium 5.2 H Chloride 109 H BUN 54 H Creatinine 1.63 H Glucose Calcium 7.6 L Magnesium AST Total Protein 6.0 L Albumin 3.3 L Ur Leukocyte Esterase Hyaline Casts Urine Mucus 12/04/17 12/04/17 09:03 10:42 RBC Hgb Hct Lymphocytes # PT INR APTT D-Dimer 4.15 H Potassium Chloride BUN Creatinine Glucose Calcium Magnesium AST Total Protein Albumin Ur Leukocyte Esterase Trace H Hyaline Casts 6 H Urine Mucus Rare H - Diagnostic Findings Chest x-ray: report reviewed, image reviewed Additional studies: EKG reviewed, echocardiogram results reviewed Assessment and Plan Plan: Assessment: #1. Acute dyspnea, orthopnea, swelling in lower extremities acute exacerbation of congestive heart failure, with systolic dysfunction #2. A. fib with RVR, #3. Chronic atrial fibrillation, on chronic anticoagulation with Coumadin, and INR was subtherapeutic on admission at 1.4 #5. Chronic kidney disease #6. Hypertension #7. History of coronary artery disease, with previous stenting #8. Recent right knee replacement, with subsequent arthrocentesis, patient has received clindamycin and prednisone for right knee swelling, warmth and redness. #9. Elevated D-dimer, VQ scan is pending Lab: We'll continue diuresis with IV Lasix, patient states his breathing is improving , chest x-ray has been reviewed, and shows fluid overload, small bilateral pleural effusions. Cardiology is following. continue monitoring oxygenation, renal profile, and electrolytes. I performed a history & physical examination of the patient and discussed their management with my nurse practitioner, Magalys Cruz. I reviewed the nurse practitioner's note and agree with the documented findings and plan of care. Lung sounds are basilar crackles. The findings and the impression was discussed with the patient. I attest to the documentation by the nurse practitioner. Time with Patient: Greater than 30
--- NOTE | 2017-12-04 12:43 | P.CRDCN ---
History of Present Illness Consult date: 12/04/17 Requesting physician: Iva Leach Consult reason: shortness of breath Chief complaint: Shortness of breath History of present illness: This is a pleasant 87-year-old female who follows with Dr. Rao in the office. She has a known history of hypertension, hyperlipidemia, coronary artery disease with prior RCA stenting, chronic persistent atrial fibrillation, on Coumadin for anticoagulation. Patient recently underwent right knee surgery at [facility] in September of this year, she states that she developed a subsequent infection, and has back to the hospital to have the knee drained. After her knee was drained, she developed a fairly sudden onset of shortness of breath for which she came to the hospital for further evaluation and treatment. Chest x-ray on admission revealed CHF exacerbation with cardiomegaly and central vascular congestion, small bilateral pleural effusions. EKG on admission here showed atrial fibrillation with rapid ventricular response. Venous duplex study did not reveal any evidence of acute DVT in the right lower extremity. Blood pressure this morning 136/80 with a heart rate in the 70s to 80s, 100% on 2 L of oxygen. Blood pressure on admission 190/79, heart rate in the 80s. White blood cell count 8.8, hemoglobin 10.0, platelet count 256. INR on admission 1.4, 1.5 this morning. Sodium 143, potassium 5.2, BUN 54, creatinine 1.6. Troponin 0.0-6, BNP level 8850. Patient was initiated on IV diuretics in the emergency room. We'll also start the patient on IV heparin drip. Past Medical History Past Medical History: Atrial Fibrillation, Coronary Artery Disease (CAD), Chest Pain / Angina, GERD/Reflux, Hyperlipidemia, Hypertension, Thyroid Disorder History of Any Multi-Drug Resistant Organisms: None Reported Past Surgical History: Cholecystectomy, Heart Catheterization With Stent, Hysterectomy, Orthopedic Surgery Additional Past Surgical History / Comment(s): right knee replacement, carpal tunnel Past Anesthesia/Blood Transfusion Reactions: No Reported Reaction Date of Last Stent Placement:: 2013 Past Psychological History: No Psychological Hx Reported Smoking Status: Former smoker Past Alcohol Use History: None Reported Past Drug Use History: None Reported - Past Family History Daughter(s) Additional Family Medical History / Comment(s): short term memory loss Father Additional Family Medical History / Comment(s): denies family history of cancer or DM in her mother Medications and Allergies Home Medications Medication Instructions Recorded Confirmed Type ALPRAZolam [Xanax] 0.5 mg PO HS 12/03/17 12/03/17 History Acetaminophen-Codeine 300-30mg 1 - 2 tab PO Q6H PRN 12/03/17 12/03/17 History [Tylenol w/codeine #3] Carvedilol [Coreg] 3.125 mg PO BID 12/03/17 12/03/17 History Ergocalciferol (Vitamin D2) 50,000 unit PO SA 12/03/17 12/03/17 History [Vitamin D2] Furosemide [Lasix] 20 mg PO Q48H 12/03/17 12/03/17 History Furosemide [Lasix] 40 mg PO Q48H 12/03/17 12/03/17 History Isosorbide Mononitrate ER [Imdur] 30 mg PO DAILY 12/03/17 12/03/17 History Latanoprost [Xalatan 0.005%] 1 drop BOTH EYES HS 12/03/17 12/03/17 History Levothyroxine Sodium 112 mcg PO DAILY 12/03/17 12/03/17 History Lisinopril [Zestril] 20 mg PO DAILY 12/03/17 12/03/17 History Nitroglycerin Sl Tabs [Nitrostat] 0.4 mg SUBLINGUAL Q5M PRN 12/03/17 12/03/17 History Pantoprazole Sodium [Protonix] 40 mg PO DAILY 12/03/17 12/03/17 History Potassium Chloride [Klor-Con 10 meq PO DAILY 12/03/17 12/03/17 History Sprinkle] Pravastatin Sodium [Pravachol] 40 mg PO HS 12/03/17 12/03/17 History Ranitidine HCl 150 mg PO DAILY 12/03/17 12/03/17 History Warfarin [Coumadin] 1 mg PO SUMOTUWEFRSA 12/03/17 12/03/17 History Warfarin [Coumadin] 2 mg PO TH 12/03/17 12/03/17 History methylPREDNISolone [Medrol Dose See Taper PO DIRECTED 12/03/17 12/03/17 History Pack] Allergies Allergy/AdvReac Type Severity Reaction Status Date / Time brimonidine [From Simbrinza] Allergy Unknown Verified 12/03/17 22:17 brinzolamide [From Simbrinza] Allergy Unknown Verified 12/03/17 22:17 Physical Exam Vitals: Vital Signs Temp Pulse Pulse Resp BP BP Pulse Ox 12/04/17 08:30 98.3 F 72 18 136/84 100 12/04/17 04:00 77 17 168/93 98 12/04/17 00:00 97.6 F 71 18 154/75 100 12/03/17 21:11 100 22 184/98 100 12/03/17 17:08 98.1 F 87 20 197/79 96 Intake and Output 12/03/17 12/04/17 12/04/17 22:59 06:59 14:59 Intake Total 50 Output Total 300 Balance 50 -300 Intake: Amount of Fluid Infused ( 50 ml) Output: Urine 300 Other: Voiding Method Bedside Commode # Voids 0 Weight 70.307 kg 73.3 kg PHYSICAL EXAMINATION: GENERAL: 87 year old female in no acute distress at the time of my examination HEENT: Head is atraumatic, normocephalic. Pupils equal, round. Sclera anicteric. Conjunctiva are clear. Mucous membranes of the mouth are moist. Neck is supple. There is elevated jugular venous pressure. No carotid bruit is heard. HEART EXAMINATION: Heart S1-S2 irregularly irregular a systolic murmur is heard CHEST EXAMINATION: Lungs reveal decreased air exchange throughout. ABDOMEN: Soft, nontender. Bowel sounds are heard. No organomegaly noted. EXTREMITIES: 2+ peripheral pulses with no evidence of peripheral edema and no calf tenderness noted. NEUROLOGIC patient is awake, alert and oriented X3. . Results 12/04/17 06:57 12/04/17 06:57 Cardiac Enzymes 12/03/17 12/03/17 12/04/17 Range/Units 17:43 17:43 06:57 AST 37 H 27 (14-36) U/L CK-MB (CK-2) 1.4 (0.0-2.4) ng/mL Troponin I 0.026 (0.000-0.034) ng/mL Coagulation 12/03/17 12/04/17 Range/Units 17:43 09:03 PT 13.1 H 13.5 H (9.0-12.0) sec APTT 21.0 L (22.0-30.0) sec CBC 12/03/17 12/04/17 Range/Units 17:43 06:57 WBC 8.2 8.8 (3.8-10.6) k/uL RBC 3.58 L 3.34 L (3.80-5.40) m/uL Hgb 10.4 L 10.0 L (11.4-16.0) gm/dL Hct 33.5 L 31.6 L (34.0-46.0) % Plt Count 279 256 (150-450) k/uL Comprehensive Metabolic Panel 12/03/17 12/04/17 Range/Units 17:43 06:57 Sodium 141 143 (137-145) mmol/L Potassium 5.1 5.2 H (3.5-5.1) mmol/L Chloride 108 H 109 H (98-107) mmol/L Carbon Dioxide 24 25 (22-30) mmol/L BUN 52 H 54 H (7-17) mg/dL Creatinine 1.57 H 1.63 H (0.52-1.04) mg/dL Glucose 109 H 96 (74-99) mg/dL Calcium 8.0 L 7.6 L (8.4-10.2) mg/dL AST 37 H 27 (14-36) U/L ALT 38 37 (9-52) U/L Alkaline Phosphatase 66 60 (38-126) U/L Total Protein 6.8 6.0 L (6.3-8.2) g/dL Albumin 3.8 3.3 L (3.5-5.0) g/dL Current Medications Generic Name Dose Route Start Last Admin Trade Name Freq PRN Reason Stop Dose Admin Acetaminophen 650 mg 12/04/17 08:15 Tylenol Tab PO Q6HR PRN Fever and/ or Pain Hydrocodone Bitart/Acetaminophen 1 each 12/04/17 08:16 [place] 5-325 PO Q6HR PRN Moderate Pain Alprazolam 0.5 mg 12/04/17 08:17 Xanax PO TID PRN Anxiety Aspirin 81 mg 12/05/17 09:00 Aspirin PO DAILY LEONARDO Carvedilol 3.125 mg 12/03/17 21:00 12/04/17 10:09 Coreg PO 3.125 mg BID LEONARDO Administration Furosemide 40 mg 12/04/17 09:00 12/04/17 10:05 Lasix IV 40 mg Q12HR LEONARDO Administration Heparin Sodium/Sodium Chloride 500 mls @ 17.59 mls/hr 12/04/17 10:30 25,000 unit/ Sodium Chloride IV .Q24H LEONARDO 12 UNITS/KG/HR Isosorbide Mononitrate 30 mg 12/04/17 09:00 12/04/17 10:04 Imdur PO 30 mg DAILY LEONARDO Administration Latanoprost 1 drops 12/03/17 21:00 12/03/17 22:33 Xalatan 0.005% BOTH EYES 1 drops HS LEONARDO Administration Levothyroxine Sodium 112 mcg 12/04/17 06:30 12/04/17 10:04 Synthroid PO 112 mcg DAILY@0630 LEONARDO Administration Lisinopril 20 mg 12/04/17 09:00 12/04/17 10:04 Zestril PO 20 mg DAILY LEONARDO Administration Miscellaneous Information 1 each 12/03/17 19:07 Coumadin Per Pharmacy MISCELLANE DIRECTED PRN Per Protocol Morphine Sulfate 2 mg 12/03/17 20:45 12/04/17 04:18 Morphine Sulfate (Inj) IVP 2 mg Q4H PRN Administration Pain/Discomfort Naloxone HCl 0.2 mg 12/03/17 19:08 Narcan IV Q2M PRN Opioid Reversal Pantoprazole Sodium 40 mg 12/04/17 07:30 12/04/17 10:04 Protonix PO 40 mg [id number] LEONARDO Administration Pravastatin Sodium 40 mg 12/03/17 21:00 12/03/17 22:33 Pravachol PO 40 mg HS LEONARDO Administration Warfarin Sodium 2 mg 12/04/17 18:00 Coumadin PO 12/04/17 18:01 ONCE ONE Intake and Output 12/03/17 12/04/17 12/04/17 22:59 06:59 14:59 Intake Total 50 Output Total 300 Balance 50 -300 Intake: Amount of Fluid Infused ( 50 ml) Output: Urine 300 Other: Voiding Method Bedside Commode # Voids 0 Weight 70.307 kg 73.3 kg 12/04/17 06:57 12/04/17 06:57 EKG Interpretations (text) EKG shows atrial fibrillation with mild rapid ventricular response Assessment and Plan Plan: Assessment and plan #1 fairly sudden onset of shortness of breath, could be secondary to mild congestive cardiac failure diastolic, acute on chronic, secondary to A. fib with RVR, or accelerated hypertension. Need to rule out possibility of pulmonary embolism. #2 chronic persistent atrial fibrillation, on Coumadin for anticoagulation, subtherapeutic #3 hypertension #4 hyperlipidemia #5 coronary artery disease with prior RCA stenting #6 recent right knee surgery , venous duplex study negative for DVT #1 acute on chronic renal insufficiency Plan Patient continues to be on IV Lasix, we will also request a d-dimer be performed , if positive we'll recommend patient undergo a VQ scan. Echocardiogram with Doppler study will also be performed. Further recommendations to follow. DNP note has been reviewed, I agree with a documented findings and plan of care. Patient was seen and examined.
[2017-12-04] MEDS: ALPRAZolam 0.5 MG TAB PO PRN ×2 (12:55→23:41)
--- NOTE | 2017-12-04 13:10 | NM ---
EXAMINATION TYPE: NM pul vent and perfuse DATE OF EXAM: 12/04/2017 COMPARISON: Chest x-ray 12/03/2017 HISTORY: Elevated d-dimer and difficulty breathing TECHNIQUE: Utilizing inhalation of 67.6 mCi Tc 99m DTPA aerosol and intravenous injection of 5.04 mC i of Tc 99m MAA, ventilation and perfusion images are acquired post injection in multiple projections . FINDINGS: Normal radiotracer distribution is noted in the lungs. There is no evidence of mismatched defects. Ov erall perfusion shows more homogenous uptake as compared to ventilation images. Some central clumping of the radiopharmaceutical noted on ventilation images, prominent lung volumes suggest underlying CO PD. IMPRESSION: Low probability for pulmonary embolism
[2017-12-04] MEDS ORDERED: WARFARIN 2.5 MG TAB PO ONE (18:00)
[2017-12-04] MEDS ORDERED: WARFARIN 2 MG TAB PO ONE (18:00)
[2017-12-04] MEDS: PRAVASTATIN SODIUM 40 MG TAB PO SCH (20:10)
[2017-12-04] MEDS: LATANOPROST 0.005% OPHTH DROPS 2.5 ML BTL BOTH EYES SCH (20:10)
[2017-12-05] MEDS: LEVOTHYROXINE 112 MCG TAB PO SCH (06:29)
[2017-12-05] MEDS: PANTOPRAZOLE 40 MG TABLET PO SCH (06:29)
[2017-12-05 07:11] LABS: Albumin 3.2 g/dL (3.5-5.0); Calcium 7.7 mg/dL (8.4-10.2); Magnesium 2.2 mg/dL (1.6-2.3); Potassium 4.7 mmol/L (3.5-5.1); Total Bilirubin 0.4 mg/dL (0.2-1.3); Total Protein 5.9 g/dL (6.3-8.2)
[2017-12-05 07:18] LABS: INR 2.1 (<1.2); Partial Thromboplastin Time 79.5 sec (22.0-30.0)
[2017-12-05] MEDS: ISOSORBIDE MONONITRATE ER 30 MG TAB.ER.24H PO SCH (09:04)
[2017-12-05] MEDS: ASPIRIN 81 MG PO SCH (09:04)
[2017-12-05] MEDS: LISINOPRIL 20 MG TAB PO SCH (09:04)
[2017-12-05] MEDS: CARVEDILOL 3.125 MG TAB PO SCH ×2 (09:04→21:40)
[2017-12-05] MEDS: FUROSEMIDE 10 MG/ML 4 ML VIAL IV SCH (09:05)
[2017-12-05 11:47] VITALS: BMI 30.9
--- NOTE | 2017-12-05 11:52 | P.PN ---
Subjective Progress Note Date: 12/05/17 Principal diagnosis: CHF exacerbation Patient was seen and examined by me today. She was sitting at the side of the bed when I saw her. She said that her shortness of breath is improving. She still have bilateral lower extremity edema. She denies any chest pain. No acute events overnight reported to me by nursing staff. Objective - Vital Signs Vital signs: Vital Signs Temp 97.7 F 12/05/17 08:30 Pulse 72 12/05/17 08:30 Resp 16 12/05/17 08:30 BP 149/74 12/05/17 08:30 Pulse Ox 100 12/05/17 08:30 Intake & Output 12/04/17 12/05/17 12/05/17 18:59 06:59 18:59 Intake Total 520 Output Total 600 1800 Balance -80 -1800 Weight 71.9 kg 71.9 kg Intake: Oral 520 Output: Urine 600 1800 Other: Voiding Method Bedside Commode # Voids 3 3 - Exam General: The patient is awake and alert, in no distress Eye: there is normal conjunctiva bilaterally. Neck: The neck is supple, there is no JVD. Cardiovascular: Normal S1-S2, no S3-S4, no murmurs. Respiratory: Lungs clear to auscultation bilaterally Gastrointestinal: Abdomen is soft, nontender Musculoskeletal: There is +1-2 edema up to the mid mathis Neurological:. Speech is normal. Skin: Skin is warm and dry - Labs CBC & Chem 7: 12/04/17 06:57 12/05/17 06:20 Labs: Abnormal Lab Results - Last 24 Hours (Table) 12/04/17 12/05/17 12/05/17 Range/Units 17:09 06:20 06:20 PT 19.0 H (9.0-12.0) sec INR 2.1 H (<1.2) APTT 37.9 H 79.5 H (22.0-30.0) sec BUN 56 H (7-17) mg/dL Creatinine 1.52 H (0.52-1.04) mg/dL Glucose 106 H (74-99) mg/dL Calcium 7.7 L (8.4-10.2) mg/dL Total Protein 5.9 L (6.3-8.2) g/dL Albumin 3.2 L (3.5-5.0) g/dL Assessment and Plan Assessment: 1. Acute diastolic heart failure exacerbation, echocardiogram showed preserved ejection fraction. Currently on IV Lasix. Patient is diuresing well. We will continue for now. Monitor kidney function and electrolytes closely. Repeat BMP in the morning. I would also repeat a chest x-ray tomorrow. 2. Atrial fibrillation with rapid ventricular response, now heart rate well controlled. On anticoagulation with Coumadin. 3. Stage IIIB chronic kidney disease baseline creatinine around 1.5 4. Essential hypertension blood pressure within acceptable range 5. Coronary artery disease with prior stent placement 6. Recent right knee arthroplasty. Plan to follow-up with orthopedic in the office as directed. 7. Elevated d-dimer on presentation. VQ scan showed low probability for PE. Patient is on anticoagulation with Coumadin. Today, I reviewed her medication list and lab work results. Continue current regimen. He Worked in the morning. Anticipate discharge home tomorrow. Plan of care discussed with nursing staff. Patient was updated about her condition. All of her questions answered to her satisfaction.
--- NOTE | 2017-12-05 12:22 | P.PN ---
Subjective Progress Note Date: 12/05/17 Principal diagnosis: Acute exacerbation of chronic congestive heart failure, with diastolic dysfunction. This is a 87-year-old white female patient progressive dyspnea, orthopnea, increased swelling in bilateral lower extremities, and abdomen. Patient's symptoms started on , and became progressively worse. Patient had some chest tightness on and off since . No fever, no chills, no cough. Diaphoresis. No nausea, vomiting or diarrhea. No abdominal pain. No lightheadedness, or dizziness. Patient has a history of chronic atrial fibrillation, on Coumadin. Patient had a recent right knee replacement in [place] [address] Koroma, and was undergoing rehabilitation at [facility]. Patient had a recent swelling, redness, and increased temperature of the right knee, and fluid was withdrawn from the knee, patient was treated with antibiotics in the form of clindamycin, and prednisone. Currently the right knee is no longer swollen, no redness, or warmth. No pain. Patient was noted to have increased swelling in lower extremities, and there is evidence of chronic venous stasis changes. He is not on any oxygen at home, patient is a remote smoker, quit smoking 30 years ago. Chest x-ray showed chronic parenchymal changes with new central vascular congestion and small bilateral pleural effusions. EKG showed atrial fibrillation with rapid ventricular response with a rate of 107 BPM. Right lower leg venous Doppler showed no evidence of DVT. Echocardiogram was completed, and showed overall left ventricular systolic function with an EF between 50-55%, there was moderate mitral regurgitation, mild tricuspid regurgitation and moderate pulmonary hypertension with right ventricular systolic pressure with a pressure of 47 mmHg. Lab work did not show any evidence of leukocytosis, WBC is 8.2, hemoglobin is 10.4, INR is 1.4, d-dimer was elevated to 4.15, sodium was 141, potassium is 5.1, chloride is 108, BUN is 52, creatinine 1.57, her BNP was elevated at 8850, troponin was 0.026. Patient was started on IV diuretics, she was placed on IV heparin, transdermal nitroglycerin ointment, and cardiology has been consulted. Patient is feeling better today, reading easier, diuresing. On 12/05/2017 patient seen in follow-up on selective care unit. She is diuresing, she is in -1880 mL net fluid balance over the last 24 hours. Weight is down 1.4 kg since admission. She reports feeling and breathing better. Currently on 2 L per nasal cannula, and her pulse ox is 100%, she is afebrile, vital signs are stable, denies any chest pain. Today's INR is 2.1, patient remains on IV heparin, and she is having bleeding from the IV insertion sites and ecchymosis on bilateral upper arms. VQ scan showed low probability of pulmonary embolism. Echocardiogram results were noted. We will stop the IV heparin, patient's INR is now therapeutic. She remains on IV diuretics at 40 mg every 12 hours. Continue current medical treatment. We will see the patient on as-needed basis. Objective - Vital Signs Vital signs: Vital Signs Temp 97.7 F 12/05/17 08:30 Pulse 72 12/05/17 08:30 Resp 16 12/05/17 08:30 BP 149/74 12/05/17 08:30 Pulse Ox 100 12/05/17 08:30 Intake & Output 12/04/17 12/05/17 12/05/17 18:59 06:59 18:59 Intake Total 520 Output Total 600 1800 Balance -80 -1800 Weight 71.9 kg 71.9 kg Intake: Oral 520 Output: Urine 600 1800 Other: Voiding Method Bedside Commode # Voids 3 3 - Exam GENERAL EXAM: Alert, pleasant, 87-year-old white female, comfortable in no apparent distress. HEAD: Normocephalic/atraumatic. EYES: Normal reaction of pupils, equal size. Conjunctiva pink, sclera white. NOSE: Clear with pink turbinates. THROAT: No erythema or exudates. NECK: No masses, no JVD, no thyroid enlargement, no adenopathy. CHEST: No chest wall deformity. Symmetrical expansion. LUNGS: Equal air entry with bibasilar crackles CVS: Irregularly irregular rate and rhythm, normal S1 and S2, no gallops, no murmurs, no rubs ABDOMEN: Soft, nontender, obese. No hepatosplenomegaly, normal bowel sounds, no guarding or rigidity. EXTREMITIES: No clubbing, no cyanosis, 2+ pulses and upper and lower extremities. There is 1+ bilateral lower extremity edema, there is chronic venous stasis changes present, right knee surgical incision is clean dry and intact, there is no warmth, swelling or redness to the right knee MUSCULOSKELETAL: Muscle strength and tone normal. SPINE: No scoliosis or deformity SKIN: No rashes CENTRAL NERVOUS SYSTEM: Alert and oriented -3. No focal deficits, tone is normal in all 4 extremities. PSYCHIATRIC: Alert and oriented -3. Appropriate affect. Intact judgment and insight. - Labs CBC & Chem 7: 12/04/17 06:57 12/05/17 06:20 Labs: Abnormal Lab Results - Last 24 Hours (Table) 12/04/17 12/05/17 12/05/17 Range/Units 17:09 06:20 06:20 PT 19.0 H (9.0-12.0) sec INR 2.1 H (<1.2) APTT 37.9 H 79.5 H (22.0-30.0) sec BUN 56 H (7-17) mg/dL Creatinine 1.52 H (0.52-1.04) mg/dL Glucose 106 H (74-99) mg/dL Calcium 7.7 L (8.4-10.2) mg/dL Total Protein 5.9 L (6.3-8.2) g/dL Albumin 3.2 L (3.5-5.0) g/dL Assessment and Plan Plan: Assessment: #1. Acute dyspnea, orthopnea, swelling in lower extremities acute exacerbation of congestive heart failure, with systolic dysfunction #2. A. fib with RVR, currently better controlled #3. Chronic atrial fibrillation, on chronic anticoagulation with Coumadin, and INR was subtherapeutic on admission at 1.4 #5. Chronic kidney disease #6. Hypertension #7. History of coronary artery disease, with previous stenting #8. Recent right knee replacement, with subsequent arthrocentesis, patient has received clindamycin and prednisone for right knee swelling, warmth and redness. #9. Elevated D-dimer, VQ scan showed low probability pulmonary embolism Lab: Continue current medical treatment, continue IV diuretics, patient reports breathing and feeling better, still has visual bilateral lower extremity edema. Vital signs are stable, denies any chest pain. Order follow-up chest x-ray. Otherwise patient remains stable, we'll discontinue heparin drip. No sizable effusions that require draining. We'll see the patient on as-needed basis. I performed a history & physical examination of the patient and discussed their management with my nurse practitioner, Magalys Cruz. I reviewed the nurse practitioner's note and agree with the documented findings and plan of care. Lung sounds are bibasilar crackles. The findings and the impression was discussed with the patient. I attest to the documentation by the nurse practitioner. Time with Patient: Less than 30
[2017-12-05] MEDS: HEPARIN SOD,PORK IN 0.45% NACL 25,000 UNIT in 0.45% NACL 1 500ML.BAG IV SCH (13:15)
--- NOTE | 2017-12-05 15:17 | P.PN ---
Subjective Progress Note Date: 12/05/17 This is a pleasant 87-year-old female who follows with Dr. Rao in the office. She has a known history of hypertension, hyperlipidemia, coronary artery disease with prior RCA stenting, chronic persistent atrial fibrillation, on Coumadin for anticoagulation. Patient recently underwent right knee surgery at [facility] in September of this year, she states that she developed a subsequent infection, and has back to the hospital to have the knee drained. After her knee was drained, she developed a fairly sudden onset of shortness of breath for which she came to the hospital for further evaluation and treatment. Chest x-ray on admission revealed CHF exacerbation with cardiomegaly and central vascular congestion, small bilateral pleural effusions. EKG on admission here showed atrial fibrillation with rapid ventricular response. Venous duplex study did not reveal any evidence of acute DVT in the right lower extremity. Blood pressure this morning 136/80 with a heart rate in the 70s to 80s, 100% on 2 L of oxygen. Blood pressure on admission 190/79, heart rate in the 80s. White blood cell count 8.8, hemoglobin 10.0, platelet count 256. INR on admission 1.4, 1.5 this morning. Sodium 143, potassium 5.2, BUN 54, creatinine 1.6. Troponin 0.0-6, BNP level 8850. Patient was initiated on IV diuretics in the emergency room. We'll also start the patient on IV heparin drip. Patient was seen and examined this morning, diuresing well on IV Lasix, weight is down 2 kg today. INR today is 2.1. Sodium 144, potassium 4.7, BUN 56, creatinine 1.5. TSH 1.2. Echocardiogram with Doppler study was performed which revealed an ejection fraction of 50-55%, moderate pulmonary hypertension, small pericardial effusion noted near the right atrium. We will continue the patient on her current dose of IV Lasix, continue to monitor intake and output along with daily weights and daily lytes BUN and creatinine. Objective - Vital Signs Vital signs: Vital Signs Temp 97.9 F 12/05/17 12:00 Pulse 76 12/05/17 12:00 Resp 16 12/05/17 12:00 BP 134/78 12/05/17 12:00 Pulse Ox 98 12/05/17 12:00 Intake & Output 12/04/17 12/05/1712/05/18 18:59 06:59 18:59 Intake Total 520 Output Total 600 1800 Balance -80 -1800 Weight 71.9 kg 71.9 kg Intake: Oral 520 Output: Urine 600 1800 Other: Voiding Method Bedside Commode # Voids 3 3 - Exam PHYSICAL EXAMINATION: GENERAL: 87 year old female in no acute distress at the time of my examination HEENT: Head is atraumatic, normocephalic. Pupils equal, round. Sclera anicteric. Conjunctiva are clear. Mucous membranes of the mouth are moist. Neck is supple. There is elevated jugular venous pressure. No carotid bruit is heard. HEART EXAMINATION: Heart S1-S2 irregularly irregular a systolic murmur is heard CHEST EXAMINATION: Lungs reveal decreased air exchange throughout. ABDOMEN: Soft, nontender. Bowel sounds are heard. No organomegaly noted. EXTREMITIES: 2+ peripheral pulses with no evidence of peripheral edema and no calf tenderness noted. NEUROLOGIC patient is awake, alert and oriented X3. - Labs CBC & Chem 7: 12/04/17 06:57 12/05/17 06:20 Labs: Abnormal Lab Results - Last 24 Hours (Table) 12/04/17 12/05/17 12/05/17 Range/Units 17:09 06:20 06:20 PT 19.0 H (9.0-12.0) sec INR 2.1 H (<1.2) APTT 37.9 H 79.5 H (22.0-30.0) sec BUN 56 H (7-17) mg/dL Creatinine 1.52 H (0.52-1.04) mg/dL Glucose 106 H (74-99) mg/dL Calcium 7.7 L (8.4-10.2) mg/dL Total Protein 5.9 L (6.3-8.2) g/dL Albumin 3.2 L (3.5-5.0) g/dL Assessment and Plan Plan: Assessment and plan #1 fairly sudden onset of shortness of breath, could be secondary to mild congestive cardiac failure diastolic, acute on chronic, secondary to A. fib with RVR, or accelerated hypertension. Need to rule out possibility of pulmonary embolism. #2 chronic persistent atrial fibrillation, on Coumadin for anticoagulation, subtherapeutic #3 hypertension #4 hyperlipidemia #5 coronary artery disease with prior RCA stenting #6 recent right knee surgery , venous duplex study negative for DVT #1 acute on chronic renal insufficiency Plan Patient continues to be on IV Lasix, d-dimer came back to be elevated but the VQ scan was low probability for PE. We will continue patient on current dose of IV Lasix, continue to monitor intake and output along with daily weights daily lytes BUN and creatinine. DNP note has been reviewed, I agree with a documented findings and plan of care. Patient was seen and examined.
--- NOTE | 2017-12-05 16:13 | XR ---
EXAMINATION TYPE: XR chest 1V portable DATE OF EXAM: 12/05/2017 CLINICAL HISTORY: Pleural effusion abnormal chest x-ray progress study. TECHNIQUE: Single AP portable upright view of the chest is obtained. COMPARISON: Chest x-ray from 2 days earlier and older studies FINDINGS: Osseous structures remain demineralized. There is redemonstration of cardiomegaly with ath erosclerotic thoracic aorta. There is chronic parenchymal change with small bilateral pleural effusio ns redemonstrated. Interval improvement in central vascular congestion noted. There is no suspicious focal airspace opacity or pneumothorax seen bilaterally IMPRESSION: Cardiomegaly and chronic parenchymal change with stable small pleural effusions but impro ajit central vascular congestion noted.
[2017-12-05] MEDS ORDERED: WARFARIN 1 MG TAB PO SCH (18:00)
[2017-12-05] MEDS: PRAVASTATIN SODIUM 40 MG TAB PO SCH (20:09)
[2017-12-05] MEDS: LATANOPROST 0.005% OPHTH DROPS 2.5 ML BTL BOTH EYES SCH (20:09)
[2017-12-05] MEDS: ALPRAZolam 0.5 MG TAB PO PRN (21:40)
[2017-12-06] MEDS: LEVOTHYROXINE 112 MCG TAB PO SCH (06:19)
[2017-12-06] MEDS: PANTOPRAZOLE 40 MG TABLET PO SCH (07:31)
[2017-12-06] MEDS: LISINOPRIL 20 MG TAB PO SCH (07:31)
[2017-12-06] MEDS: ASPIRIN 81 MG PO SCH (07:32)
[2017-12-06] MEDS: ISOSORBIDE MONONITRATE ER 30 MG TAB.ER.24H PO SCH (07:32)
[2017-12-06] MEDS: CARVEDILOL 3.125 MG TAB PO SCH (07:32)
[2017-12-06 08:03] LABS: Basophils % (A) 0 %; Eosinophils # (A) 0.1 k/uL (0-0.7); Eosinophils % (A) 1 %; HCT 34.8 % (34.0-46.0); HGB 10.7 gm/dL (11.4-16.0); Hypochromasia Slight; Lymphocytes # (A) 0.9 k/uL (1.0-4.8); Lymphocytes % (A) 11 %; MCH 29.2 pg (25.0-35.0); MCHC 30.7 g/dL (31.0-37.0); MCV 95.2 fL (80.0-100.0); Mean Platelet Volume 6.6; Monocytes # (A) 0.5 k/uL (0-1.0); Monocytes % (A) 7 %; Neutrophils # (A) 6.3 k/uL (1.3-7.7); Neutrophils % (A) 80 %; Platelet Count 264 k/uL (150-450); RBC 3.66 m/uL (3.80-5.40); RDW 14.5 % (11.5-15.5); WBC 7.9 k/uL (3.8-10.6)
[2017-12-06 08:18] LABS: Calcium 8.6 mg/dL (8.4-10.2); Magnesium 2.3 mg/dL (1.6-2.3); Potassium 4.7 mmol/L (3.5-5.1); Prothrombin Time 17.9 sec (9.0-12.0)
[2017-12-06] MEDS ORDERED: FUROSEMIDE 40 MG TAB PO SCH (09:00)
--- NOTE | 2017-12-06 10:11 | P.PN ---
Subjective Mrs. Simon is seen and examined sitting up at the bedside eating breakfast. Past medical history significant for hypertension, dyslipidemia, coronary artery disease s/p stenting of RCA, chronic persistent atrial fibrillation on coumadin and currently being treated for acute on chronic diastolic heart failure. She denies shortness of breath, chest pain, dizziness or palpitations. She complains that she is feeling very cold and requiring extra blankets. She states when she gets too cold sometimes her asthma acts up. Lasix has been changes to oral this morning. Weight is down 2 kg from admission and she is showing negative 1880 cc for the previous 24 hours. Blood pressure this morning before medications 194/88 heart rate 62, laboratory data reviewed, hemoglobin 10.7, platelets 264, INR 2.0, sodium 143, potassium 4.7, creatinine 1.57, magnesium 2.3. Objective - Vital Signs Vital signs: Vital Signs Temp 96.5 F L 12/06/17 07:25 Pulse 74 12/06/17 08:50 Resp 18 12/06/17 07:25 BP 194/88 12/06/17 07:25 Pulse Ox 95 12/06/17 05:00 Intake & Output 12/05/17 12/06/17 12/06/17 18:59 06:59 18:59 Intake Total 493 60 Balance 493 60 Weight 71.9 kg 71.9 kg Intake: Oral 493 60 Other: Voiding Method Bedside Commode Bedside Commode # Voids 2 2 - Exam GENERAL: Well-appearing, well-nourished and in no acute distress. NECK: Supple without JVD or thyromegaly. LUNGS: Breath sounds clear to auscultation bilaterally. Respiration equal and unlabored. No wheezes, rales or rhonchi. HEART: Irregular rate and rhythm with systolic ejection murmur at the base, no rubs or gallops. S1 and S2 heard. EXTREMITIES: Normal range of motion, 1+ bilateral lower extremity edema. No clubbing or cyanosis. Peripheral pulses intact. - Labs CBC & Chem 7: 12/06/17 07:35 12/06/17 07:35 Labs: Abnormal Lab Results - Last 24 Hours (Table) 12/06/17 12/06/17 12/06/17 Range/Units 07:35 07:35 07:35 RBC 3.66 L (3.80-5.40) m/uL Hgb 10.7 L (11.4-16.0) gm/dL MCHC 30.7 L (31.0-37.0) g/dL Lymphocytes # 0.9 L (1.0-4.8) k/uL PT 17.9 H (9.0-12.0) sec INR 2.0 H (<1.2) Carbon Dioxide 33 H (22-30) mmol/L BUN 49 H (7-17) mg/dL Creatinine 1.57 H (0.52-1.04) mg/dL Assessment and Plan Assessment: ASSESSMENT Acute on chronic diastolic congestive heart failure Chronic persistent atrial fibrillation on long-term anticoagulation Hypertension Dyslipidemia History of coronary artery disease with prior stenting of the RCA Recent knee surgery, venous duplex negative for DVT Acute on chronic renal insufficiency PLAN Repeat blood pressure after medications given. Add on small dose of aldactone 25 mg daily. Follow up with BMP in [address] Rao in 2-3 weeks. Nurse Practitioner note has been reviewed, I agree with a documented findings and plan of care. Patient was seen and examined.
[2017-12-06] MEDS ORDERED: SPIRONOLACTONE 25 MG TAB PO SCH (10:15)
--- NOTE | 2017-12-06 11:05 | P.DS ---
Providers Date of admission: 12/04/17 14:41 Expected date of discharge: 12/06/17 Attending physician: Iva Leach MD Consults: 12/03/17 18:19 Consult Physician Routine Consulting Provider: [facility] Consult Reason/Comments: Chief pulmonary edema Do you want consulting provider notified?: Yes Primary care physician: Koko Gold [facility] Course: This is a 87-year-old female with past medical history noted below who presented to the hospital with worsening shortness of breath and was found to have evidence of fluid overload with congestion on chest x-ray and bilateral lower extremity edema. Patient was admitted to the hospital and was seen and evaluated by cardiology. Below is a list of her medical problems. 1. Acute diastolic heart failure exacerbation, echocardiogram showed preserved ejection fraction. Patient was diuresed with IV Lasix. Repeat BNP and chest x- ray improved. Her Lasix regimen was adjusted 2. Atrial fibrillation with rapid ventricular response, now heart rate well controlled. On anticoagulation with Coumadin. 3. Stage IIIB chronic kidney disease baseline creatinine around 1.5 4. Essential hypertension blood pressure within acceptable range 5. Coronary artery disease with prior stent placement 6. Recent right knee arthroplasty. Plan to follow-up with orthopedic in the office as directed. 7. Elevated d-dimer on presentation. VQ scan showed low probability for PE. Patient is on anticoagulation with Coumadin. Patient will be discharged in a stable condition. She will follow-up with her primary care physician and cardiology as directed Patient Condition at Discharge: Fair Plan - Discharge Summary New Discharge Prescriptions: New Furosemide [Lasix] 40 mg PO DAILY #30 tab Continue Latanoprost [Xalatan 0.005%] 1 drop BOTH EYES HS Acetaminophen-Codeine 300-30mg [Tylenol w/codeine #3] 1 - 2 tab PO Q6H PRN PRN Reason: Pain Levothyroxine Sodium 112 mcg PO DAILY Carvedilol [Coreg] 3.125 mg PO BID Pravastatin Sodium [Pravachol] 40 mg PO HS Pantoprazole Sodium [Protonix] 40 mg PO DAILY Isosorbide Mononitrate ER [Imdur] 30 mg PO DAILY Potassium Chloride [Klor-Con Sprinkle] 10 meq PO DAILY Warfarin [Coumadin] 1 mg PO SUMOTUWEFRSA Warfarin [Coumadin] 2 mg PO TH Nitroglycerin Sl Tabs [Nitrostat] 0.4 mg SUBLINGUAL Q5M PRN PRN Reason: Chest Pain Lisinopril [Zestril] 20 mg PO DAILY Ergocalciferol (Vitamin D2) [Vitamin D2] 50,000 unit PO SA ALPRAZolam [Xanax] 0.5 mg PO HS Discontinued Ranitidine HCl 150 mg PO DAILY Furosemide [Lasix] 20 mg PO Q48H Furosemide [Lasix] 40 mg PO Q48H methylPREDNISolone [Medrol Dose Pack] See Taper PO DIRECTED Discharge Medication List ALPRAZolam [Xanax] 0.5 mg PO HS 12/03/17 [History] Acetaminophen-Codeine 300-30mg [Tylenol w/codeine #3] 1 - 2 tab PO Q6H PRN 12/03 [History] Carvedilol [Coreg] 3.125 mg PO BID 12/03/17 [History] Ergocalciferol (Vitamin D2) [Vitamin D2] 50,000 unit PO SA 12/03/17 [History] Isosorbide Mononitrate ER [Imdur] 30 mg PO DAILY 12/03/17 [History] Latanoprost [Xalatan 0.005%] 1 drop BOTH EYES HS 12/03/17 [History] Levothyroxine Sodium 112 mcg PO DAILY 12/03/17 [History] Lisinopril [Zestril] 20 mg PO DAILY 12/03/17 [History] Nitroglycerin Sl Tabs [Nitrostat] 0.4 mg SUBLINGUAL Q5M PRN 12/03/17 [History] Pantoprazole Sodium [Protonix] 40 mg PO DAILY 12/03/17 [History] Potassium Chloride [Klor-Con Sprinkle] 10 meq PO DAILY 12/03/17 [History] Pravastatin Sodium [Pravachol] 40 mg PO HS 12/03/17 [History] Warfarin [Coumadin] 1 mg PO SUMOTUWEFRSA 12/03/17 [History] Warfarin [Coumadin] 2 mg PO TH 12/03/17 [History] Furosemide [Lasix] 40 mg PO DAILY #30 tab 12/06/17 [Rx] Follow up Appointment(s)/Referral(s): Koko Gold MD [Primary Care Provider] - 3 Days Arelis Rao MD [STAFF PHYSICIAN] - 2 Weeks Ambulatory/Diagnostic Orders: Basic Metabolic Panel [LAB.AMB] Time Frame: 1 Week, Location: None Selected Discharge Disposition: HOME SELF-CARE
[2017-12-06 12:29] VITALS: TEMP 98.3
[2017-12-06 12:53] VITALS: RESP 20
[2017-12-06] MEDS ORDERED: MORPHINE ORAL SOLN 10 MG/5 ML CUP PO PRN (15:23)
[2017-12-06 16:06] VITALS: BP 152/66; PULSE 80
[2017-12-07] MEDS ORDERED: WARFARIN 2 MG TAB PO SCH (18:00)
== END 2017-12-06 15:24 | disposition home health service (06) | DRG 291 ==
LOC: EC 17:03 → 6SEL 18:43 → OBSVTOIN 12-04 14:41 → 5MS5E 12-05 17:07
PROVIDERS: ADMIT Internal Medicine; ATTEND Internal Medicine
DX: I13.0 Hypertensive heart and chronic kidney disease with heart failure and stage 1 through stage 4 chronic kidney disease, or unspecified chronic kidney disease (principal); I50.33 Acute on chronic diastolic (congestive) heart failure; I31.3 Pericardial effusion (noninflammatory); I27.20 Pulmonary hypertension, unspecified; I08.1 Rheumatic disorders of both mitral and tricuspid valves; I48.2 Chronic atrial fibrillation; N18.3 Chronic kidney disease, stage 3 (moderate); D64.9 Anemia, unspecified; L08.9 Local infection of the skin and subcutaneous tissue, unspecified; I87.8 Other specified disorders of veins; E03.9 Hypothyroidism, unspecified; E78.5 Hyperlipidemia, unspecified; K21.9 Gastro-esophageal reflux disease without esophagitis; I16.0 Hypertensive urgency; J45.909 Unspecified asthma, uncomplicated; I25.10 Atherosclerotic heart disease of native coronary artery without angina pectoris; Z79.01 Long term (current) use of anticoagulants; Z79.890 Hormone replacement therapy; Z79.899 Other long term (current) drug therapy; Z95.5 Presence of coronary angioplasty implant and graft; Z96.651 Presence of right artificial knee joint; Z87.891 Personal history of nicotine dependence; Z90.49 Acquired absence of other specified parts of digestive tract; Z90.710 Acquired absence of both cervix and uterus; Z88.8 Allergy status to other drugs, medicaments and biological substances; Z83.3 Family history of diabetes mellitus; Z80.9 Family history of malignant neoplasm, unspecified; Z82.0 Family history of epilepsy and other diseases of the nervous system
CPT/HCPCS: 36415; 71045; 71046; 78582; 80048; 80053; 81001; 82550; 82553; 83735; 83880; 84100; 84443; 84484; 85025; 85379; 85610; 85730; 93005; 93306; 96374; 96375; 99291

== ENCOUNTER 2017-12-22 17:17 | Inpatient (IN) | payer MEDICARE, BC ==
[2017-12-22] MEDS ORDERED: SODIUM CHLORIDE 0.9% 1,000 ML IV STA (17:39)
[2017-12-22] MEDS ORDERED: LEVOFLOXACIN 750MG-D5W PMX 750 MG in DEXTROSE/WATER 1 150ML.BAG IVPB STA (17:39)
[2017-12-22] MEDS ORDERED: IPRATROPIUM-ALBUTEROL 3 ML NEB INHALATION STA (17:39)
--- NOTE | 2017-12-22 17:57 | ED ---
General Adult HPI - General Chief complaint: Shortness of Breath Stated complaint: poss pneumo, sent by [facility] Time Seen by Provider: 12/22/17 17:34 Source: patient, RN notes reviewed, old records reviewed Mode of arrival: ambulatory Limitations: no limitations - History of Present Illness Initial comments: This is a 7-year-old female the ER for evaluation. Patient is with cough and congestion shortness of breath. Patient does have history of heart disease A. fib heart failure. Denies recent fevers occasional chills. No recent travel history no known sick contacts. No recent current hospitalizations. Patient was seen by her family doctor told to come to the emergency room for evaluation regarding outpatient x-ray which was positive for pneumonia. Patient continues to complain of shortness of breath, denies pain - Related Data Home Medications Medication Instructions Recorded Confirmed ALPRAZolam [Xanax] 0.5 mg PO HS 12/03/17 12/22/17 Acetaminophen-Codeine 300-30mg 1 - 2 tab PO Q6H PRN 12/03/17 12/22/17 [Tylenol w/codeine #3] Carvedilol [Coreg] 3.125 mg PO BID 12/03/17 12/22/17 Ergocalciferol (Vitamin D2) 50,000 unit PO SA 12/03/17 12/22/17 [Vitamin D2] Isosorbide Mononitrate ER [Imdur] 30 mg PO DAILY 12/03/17 12/22/17 Latanoprost [Xalatan 0.005%] 1 drop BOTH EYES HS 12/03/17 12/22/17 Levothyroxine Sodium 112 mcg PO DAILY 12/03/17 12/22/17 Lisinopril [Zestril] 20 mg PO DAILY 12/03/17 12/22/17 Nitroglycerin Sl Tabs [Nitrostat] 0.4 mg SUBLINGUAL Q5M PRN 12/03/17 12/22/17 Pantoprazole Sodium [Protonix] 40 mg PO DAILY 12/03/17 12/22/17 Potassium Chloride [Klor-Con 10 meq PO DAILY 12/03/17 12/22/17 Sprinkle] Pravastatin Sodium [Pravachol] 40 mg PO HS 12/03/17 12/22/17 Warfarin [Coumadin] 1 mg PO HS 12/03/17 12/22/17 Previous Rx's Medication Instructions Recorded Albuterol Inhaler [Ventolin Hfa 1 - 2 puff INHALATION RT-Q6H PRN 12/06/17 Inhaler] #1 inhaler Furosemide [Lasix] 40 mg PO DAILY #30 tab 12/06/17 Allergies Allergy/AdvReac Type Severity Reaction Status Date / Time brimonidine [From Simbrinza] Allergy Unknown Verified 12/22/17 18:06 brinzolamide [From Simbrinza] Allergy Unknown Verified 12/22/17 18:06 Review of Systems ROS Statement: Those systems with pertinent positive or pertinent negative responses have been documented in the HPI. ROS Other: All systems not noted in ROS Statement are negative. Past Medical History Past Medical History: Atrial Fibrillation, Coronary Artery Disease (CAD), Chest Pain / Angina, GERD/Reflux, Hyperlipidemia, Hypertension, Thyroid Disorder History of Any Multi-Drug Resistant Organisms: None Reported Past Surgical History: Cholecystectomy, Heart Catheterization With Stent, Hysterectomy, Orthopedic Surgery Additional Past Surgical History / Comment(s): right knee replacement, carpal tunnel Past Anesthesia/Blood Transfusion Reactions: No Reported Reaction Date of Last Stent Placement:: 2013 Past Psychological History: No Psychological Hx Reported Smoking Status: Former smoker Past Alcohol Use History: None Reported Past Drug Use History: None Reported - Past Family History Daughter(s) Additional Family Medical History / Comment(s): short term memory loss Father Additional Family Medical History / Comment(s): denies family history of cancer or DM in her mother General Exam Limitations: no limitations General appearance: alert, in no apparent distress Head exam: Present: atraumatic, normocephalic, normal inspection Eye exam: Present: normal appearance, PERRL, EOMI. Absent: scleral icterus, conjunctival injection, periorbital swelling ENT exam: Present: normal exam, mucous membranes moist Neck exam: Present: normal inspection. Absent: tenderness, meningismus, lymphadenopathy Respiratory exam: Present: normal lung sounds bilaterally. Absent: respiratory distress, wheezes, rales, rhonchi, stridor Cardiovascular Exam: Present: regular rate, normal rhythm, normal heart sounds. Absent: systolic murmur, diastolic murmur, rubs, gallop, clicks GI/Abdominal exam: Present: soft, normal bowel sounds. Absent: distended, tenderness, guarding, rebound, rigid Extremities exam: Present: normal inspection, full ROM, normal capillary refill. Absent: tenderness, pedal edema, joint swelling, calf tenderness Back exam: Present: normal inspection Neurological exam: Present: alert, oriented X3, CN II-XII intact Psychiatric exam: Present: normal affect, normal mood Skin exam: Present: warm, dry, intact, normal color. Absent: rash Course Vital Signs 12/22/17 12/22/17 12/22/17 17:22 17:52 17:58 Temperature 98.5 F Pulse Rate 98 97 86 Respiratory 18 Rate Blood Pressure 154/79 O2 Sat by Pulse 100 Oximetry - Reevaluation(s) Reevaluation #1: 12/22/17 18:13 Medical record and patient's outpatient paperwork is reviewed. Reevaluation #2: 12/22/17 18:13 Patient does have improvement breathing treatment, no acute distress EKG Findings - EKG Comments: EKG Findings:: EKG shows A. fib RVR rate 103, QRS 80, QTC 455 Medical Decision Making - Medical Decision Making 87 female the ER for evasive shortness of breath. Patient coming chest x-ray positive for pneumonia. Patient's multiple comorbidities, will admit for IV antibiotics and breathing treatments, monitoring of cardiopulmonary status - Radiology Data Radiology results: report reviewed (Chest x-ray outpatient is reviewed showing positive pneumonia) Disposition Clinical Impression: Congestive heart failure, Community acquired pneumonia, Atrial fibrillation with RVR Disposition: ADMITTED IP TO THIS HOSP Condition: Fair Is patient prescribed a controlled substance at d/c from ED?: No Referrals: Koko Gold MD [Primary Care Provider] - 1-2 days
[2017-12-22] MEDS ORDERED: PNEUMONIA PROTOCOL UTILIZED 1 EACH MISC PO PRN (18:11)
[2017-12-22 18:59] LABS: Basophils % (A) 0 %; Eosinophils # (A) 0.2 k/uL (0-0.7); Eosinophils % (A) 1 %; HCT 34.6 % (34.0-46.0); HGB 10.8 gm/dL (11.4-16.0); Lymphocytes % (A) 9 %; MCH 29.2 pg (25.0-35.0); MCHC 31.1 g/dL (31.0-37.0); MCV 93.8 fL (80.0-100.0); Mean Platelet Volume 6.9; Monocytes # (A) 0.4 k/uL (0-1.0); Monocytes % (A) 4 %; Neutrophils # (A) 9.2 k/uL (1.3-7.7); Neutrophils % (A) 84 %; Platelet Count 143 k/uL (150-450); RBC 3.69 m/uL (3.80-5.40); WBC 10.9 k/uL (3.8-10.6)
[2017-12-22 19:01] LABS: INR 1.4 (<1.2); Partial Thromboplastin Time 22.9 sec (22.0-30.0)
[2017-12-22 19:09] LABS: Albumin 3.7 g/dL (3.5-5.0); Calcium 7.8 mg/dL (8.4-10.2); Magnesium 2.2 mg/dL (1.6-2.3); Potassium 4.3 mmol/L (3.5-5.1); Total Bilirubin 0.7 mg/dL (0.2-1.3); Total Protein 6.5 g/dL (6.3-8.2)
[2017-12-22 19:25] LABS: Creatine Kinase MB 4.1 ng/mL (0.0-2.4)
[2017-12-22] MEDS: IPRATROPIUM-ALBUTEROL 3 ML NEB INHALATION PRN (19:33)
[2017-12-22 19:34] LABS: Troponin I 0.039 ng/mL (0.000-0.034)
--- NOTE | 2017-12-22 20:38 | CT ---
EXAMINATION TYPE: CT angio chest DATE OF EXAM: 12/22/2017 8:32 PM COMPARISON: None HISTORY: Shortness of breath. CT DLP: 270.7 mGycm Automated exposure control for dose reduction was used. CONTRAST: CTA scan of the thorax is performed with IV Contrast, patient injected with 66ml mL of Isovue 370, pu lmonary embolism protocol. There are 3-D post processed images.. FINDINGS: There is some pleural thickening at the posterior lung bases. There is mild linear density at the erick g bases consistent with scarring and subsegmental atelectasis. There is no pericardial effusion. There is normal contrast opacification of the pulmonary arteries. There are no filling defects. There is no evidence of thoracic aortic aneurysm or dissection. Thoracic aorta is atheromatous. There are a few paratracheal and bronchial lymph nodes that measure less than 1 cm. There is spurring in the th oracic spine.. OTHER: No evidence of pulmonary embolism. Mild scarring and subsegmental atelectasis at the lung bases. Small right pleural effusion. Cardiomeg chanda. IMPRESSION:
[2017-12-22] MEDS ORDERED: NITROGLYCERIN SL TABS 0.4 MG TAB SUBLINGUAL PRN (21:05)
[2017-12-22] MEDS ORDERED: ALBUTEROL NEBULIZED 2.5 MG/3 ML INHALATION PRN (21:05)
[2017-12-22] MEDS: SODIUM CHLORIDE 0.9% 1,000 ML IV SCH (21:16)
[2017-12-22] MEDS ORDERED: WARFARIN 1 MG TAB PO SCH (22:00)
[2017-12-22] MEDS: ALPRAZolam 0.5 MG TAB PO SCH (23:54)
[2017-12-22] MEDS: CARVEDILOL 3.125 MG TAB PO SCH (23:55)
[2017-12-23] MEDS: CARVEDILOL 3.125 MG TAB PO SCH ×2 (06:06→16:18)
[2017-12-23] MEDS: PANTOPRAZOLE 40 MG TABLET PO SCH (06:06)
[2017-12-23] MEDS: LEVOTHYROXINE 112 MCG TAB PO SCH (06:06)
[2017-12-23 06:14] LABS: INR 1.6 (<1.2); Prothrombin Time 14.5 sec (9.0-12.0)
[2017-12-23] MEDS: SODIUM CHLORIDE 0.9% 1,000 ML IV SCH ×2 (06:36→11:34)
[2017-12-23] MEDS: ISOSORBIDE MONONITRATE ER 30 MG TAB.ER.24H PO SCH (07:44)
--- NOTE | 2017-12-23 08:27 | US ---
EXAMINATION TYPE: US venous doppler duplex LE RT DATE OF EXAM: 12/23/2017 8:13 AM COMPARISON: Previous study dated 12/03/2017. CLINICAL HISTORY: R/O DVT. Right leg pain and swelling, knee replacement in September. SIDE PERFORMED: Right TECHNIQUE: The lower extremity deep venous system is examined utilizing real time linear array sonog adriana with graded compression, doppler sonography and color-flow sonography. VESSELS IMAGED: External Iliac Vein (EIV) Common Femoral Vein Deep Femoral Vein Greater Saphenous Vein * Femoral Vein Popliteal Vein Small Saphenous Vein * Proximal Calf Veins (* superficial vessels) Right Leg: Negative for DVT No popliteal fossa lesion is seen. IMPRESSION: THIS EXAMINATION IS NEGATIVE FOR DVT IN THE RIGHT LEG.
[2017-12-23] MEDS ORDERED: LISINOPRIL 20 MG TAB PO SCH (09:00)
[2017-12-23] MEDS ORDERED: POTASSIUM CHLORIDE ER 10 MEQ TAB.ER.PRT PO SCH (09:00)
[2017-12-23] MEDS ORDERED: FUROSEMIDE 40 MG TAB PO SCH (09:00)
[2017-12-23] MEDS: IPRATROPIUM-ALBUTEROL 3 ML NEB INHALATION PRN (11:27)
[2017-12-23] MEDS: FUROSEMIDE 10 MG/ML 2 ML VIAL IV SCH ×3 (11:34→23:22)
[2017-12-23] MEDS: SPIRONOLACTONE 25 MG TAB PO SCH (11:34)
[2017-12-23] MEDS ORDERED: ERGOCALCIFEROL 50,000 UNIT CAP PO SCH (12:00)
--- NOTE | 2017-12-23 12:25 | HP ---
HISTORY AND PHYSICAL Age [age] years old and and the date of is 1930. She is in 680, bed 2. NEW DATA: She is 5 foot height and weight 72.1 kg, BSA 1.69 m2, BMI 31.0 kg/m2. She has allergy to EYEDROPS, BRIMONIDINE, also BRINZOLAMIDE ATTENDING PHYSICIAN: Dr. Gold Dictating the admission history and physical by Dr. Bueno . Patient seen today and examined. Consultation with Cardiology for reason of congestive heart failure, probably diastolic and with the associated elevation of troponin and the current troponin is 0.039 and the sequence will be obtained. Also, she had beta natriuretic peptide 4,450 and total CPK is 140, and the CK-MB is 4.1, all is abnormal. Patient admitted with initially from the emergency room with the ER thought that she has pneumonia and she had history of atrial fibrillation. She had history of stent and in the past and she had rapid ventricular response. CHIEF COMPLAINT: She has history of shortness of breath and started on Monday and prior to that, started a sore throat and she gargling with salt and water. The shortness of breath and cough was significantly increased with minimal movement and subsequently she went to the [facility] who sent her to the hospital. HISTORY OF PRESENT ILLNESS: We have an 87-year-old white female. She was recently in the hospital on December 04 and she was short of breath and treated and sent home. She stated that starting the shortness of breath after she had upper respiratory tract infection with a sore throat and scratchy, gargled with salt and water was coughing extensively and the shortness of breath with every movement. She waited until Monday where she went to Dr. Koroma, the therapy after she had the right total knee arthroplasty and she could not complete her session for the therapy on her leg and that was on yesterday, Monday and she felt she getting worse. She afraid to be worse on the weekend and she went to the [facility], which they did not do any added treatment; however, send her to the hospital emergency room where she was seen by the ER doctor and at that time, they thought that she has pneumonia in the left lower, right-sided adjacent to the heart and after the discussion, CAT scan angiogram was done and the result indicating atelectasis and no pneumonia and no PE, and subsequently patient admitted, started on IV Levaquin 750 and we requesting the pharmacy to address the dose because of her renal function. As mentioned above and the start that she had a troponin was elevated and the proBNP was elevated. Her impression through the emergency room indicating that if disposition the congestive heart failure and community-acquired pneumonia, atrial fibrillation with rapid ventricular response by the physician in the ER with the underlying history of stent in 2010 and atrial fibrillation started in 2010 and she taken medication for that purpose as well. However, the acute viral infection could be precipitated her problem. Her CT of the chest and angiogram was indicating that pleural thickening in the posterior bases and there is mild linear density in the lung bases consistent with scarring and subsegmental atelectasis and there is no pericardial effusion. Also indicating there is no evidence of thoracic aneurysm or dissection or thoracic aortic atheromatous and a few paratracheal and bronchial lymph node and measuring less than 1 cm. She had arthritis of the spine and no evidence of pulmonary embolism and mild scarring and subsegmental atelectasis in the lung bases with the cardiomegaly. No evidence has been discussed in the presence of pneumonia in this CT scan. Then we have as well, her data from the previous echocardiogram was done on December 04, 2017 and she has underlying this months of 12/12 and that was indicating that her underlying left ventricular size was normal and ejection fraction was 50-55 and that as well as she has moderate enlargement of dilated left atrium 34-39 mL/m2 and she has moderate mitral regurgitation and tricuspid regurgitation and pulmonary hypertension with the right ventricular systolic pressure is 47.50. She had a physiologic pulmonary regurg as well and; however, she has the atrial fibrillation and she has edema of the legs and also minimal rales on the chest bases with the suspicious of the diastolic congestive heart failure, acute on the top of chronic, as well as her laboratory is indicating that it is indicating that her Coumadin is: 1. Is subtherapeutic. 2. Her GFR is a 45 for non-. She has as well calcium slightly low, 7.8 and her troponin 0.039 and today add the sequel of troponin to see how increasing or decreasing and beta natriuretic peptide is 4,450, which indicating definitely the dilated left atrium and with the presence of pulmonary hypertension as well as edema of the legs and that is associated with the diastolic dysfunction, could be acute on the top of chronic. The rest of the laboratories indicating the white count is 10.9 and the normal is 10.6, not really highly supporting the pneumonia idea that came from the ER. Her platelet count 143 is reasonable, but according to the criteria is thrombocytopenia and her hemoglobin is 10.8 with chronic anemia and her PT and INR and that is the protime is 14.5 and INR 1.6, which is subtherapeutic. Her BUN today is 31 and creatinine 1.12 with the estimated glomerular filtration rate is 45, which is indicating chronic kidney disease stage III. PAST MEDICAL HISTORY: She had history of advanced degenerative osteoarthritis. She had recently the right total knee arthroplasty and she is getting physical therapy by Dr. Koroma in his office. And otherwise, family history is negative and she had no sisters or brothers, but she has 3 children, 2 sons and 1 daughter. Her older son has COPD. Her at age of 67 with [place] and she has no sisters and no brothers as I mentioned, and she has some allergy to EYEDROPS which is mentioned above. She had the stent in 2010, and since then she has the atrial fibrillation. Her transition mgr rn is Dr. Rao, and her flu shot usually given by Dr. Gold in December and pneumonia shot, she has one a few years ago and she felt at home that she has congestion and runny nose as well. REVIEW OF THE SYSTEM: Neuropsychiatry was negative. CARDIOVASCULAR: She has a history of chronic atrial fibrillation with currently RVR, atrial fib with RVR. PULMONARY: She had shortness of breath. They thought that she had pneumonia; however, that is not the case. She had upper respiratory tract infection with a viral which was around the town. Hemoptysis and no diarrhea. GI: No history of nausea, vomiting, or hematemesis or melena or hematochezia. MUSCULOSKELETAL: She was extremely weak and tired and could not finish her therapy by Dr. Koroma's physical therapist. She had on her other issue indicating that she had hypothyroidism and she has been supplemented. She has history of hypertension and GERD disease and hyperlipidemia. PHYSICAL EXAMINATION: Patient was conscious, alert, oriented x3. Her temperature when initially admitted, her temperature 99.1; however, subsequently 97.2, her pulse 83 per minute, respiratory rate 18 and blood pressure 122/56 with a mean 78 and room air was 97. HEENT: The head was normocephalic, atraumatic. Pupil was equal, reactive and she has eyedrops. Oropharynx natural teeth and no all postnasal discharge. The neck was supple. No JVD. No thyromegaly. No lymphadenopathy. Trachea midline. The chest was mild kyphoscoliosis and she has a minimal inspiratory rales with the underlying congestive heart failure, diastolic, and no rhonchi, no wheezes in the heart PMI in the fifth intercostal space outside midclavicular line with irregular irregularities as well atrial fibrillation with rapid ventricular response. ABDOMEN: Soft, positive bowel sounds and no tenderness. However, she admitted that she had a tenderness in the right lower quadrant. She has normal urination and she has only gallbladder removed with the laparoscopic cholecystectomy, but she did not have other symptoms. She stated that she has comes back and forth and she does not have any nephrolithiasis in the past and no rebound on the examination with the positive bowel sounds. EXTREMITIES: She has the right total knee arthroplasty scar healing well. She had edema of the legs bilaterally with the 2+ and she had stasis dermatitis on the shaft of the tibia. She has onychomycosis of the toenail bilaterally. She is able to stand up and move. ASSESSMENT: 1. Underlying congestive heart failure, probably diastolic in nature. 2. Atrial fibrillation with rapid ventricular response. 3. Underlying elevated troponin with waiting for the sequence of her troponin elevation. 4. Underlying history of bronchitis in upper respiratory tract; however, there is no evidence of pneumonia on this admission. 5. Chronic kidney disease and hypothyroidism. 6. Hyperlipidemia. PLAN: We will continue to continue the Levaquin and asking the pharmacy to dose for her kidney function. Diuresis and consultation with Cardiology as mentioned above, as well as monitoring the patient. Continue the antibiotic until further evaluation and repeat the chest x-ray. Decrease IV fluid to the minimum. MMODL / IJN: [id number] /
--- NOTE | 2017-12-23 15:10 | XR ---
EXAMINATION TYPE: XR chest 2V DATE OF EXAM: 12/23/2017 COMPARISON: 12/05/2017 INDICATION: Pneumonia TECHNIQUE: Frontal and lateral views of the chest are obtained. FINDINGS: The heart size is normal. The pulmonary vasculature is normal. Small bilateral pleural effusions are present. There is blunting of the costophrenic angles. Posterio r pleural effusions are better visualized on the lateral view. There is hyperinflation flattening the diaphragms compatible COPD. Vascular calcification is through the aorta.. IMPRESSION: 1. Small bilateral pleural effusions. 2. COPD
[2017-12-23] MEDS ORDERED: LEVOFLOXACIN 750MG-D5W PMX 750 MG in DEXTROSE/WATER 1 150ML.BAG IVPB SCH (19:00)
[2017-12-23] MEDS: PRAVASTATIN SODIUM 40 MG TAB PO SCH (20:09)
[2017-12-23] MEDS: WARFARIN 2 MG TAB PO SCH (20:09)
[2017-12-23] MEDS: ALPRAZolam 0.5 MG TAB PO SCH (21:13)
[2017-12-23] MEDS: LATANOPROST 0.005% OPHTH DROPS 2.5 ML BTL BOTH EYES SCH (21:54)
[2017-12-24] MEDS: LEVOTHYROXINE 112 MCG TAB PO SCH (06:36)
[2017-12-24] MEDS: PANTOPRAZOLE 40 MG TABLET PO SCH (06:36)
[2017-12-24 06:38] LABS: INR 1.5 (<1.2); Prothrombin Time 14.2 sec (9.0-12.0)
[2017-12-24] MEDS: CARVEDILOL 3.125 MG TAB PO SCH ×3 (06:38→16:06)
[2017-12-24 06:39] LABS: Basophils % (A) 0 %; Eosinophils # (A) 0.2 k/uL (0-0.7); Eosinophils % (A) 4 %; HCT 31.8 % (34.0-46.0); HGB 10.1 gm/dL (11.4-16.0); Hypochromasia Slight; Lymphocytes # (A) 0.8 k/uL (1.0-4.8); Lymphocytes % (A) 14 %; MCH 29.8 pg (25.0-35.0); MCHC 31.7 g/dL (31.0-37.0); MCV 94.1 fL (80.0-100.0); Mean Platelet Volume 6.6; Monocytes # (A) 0.3 k/uL (0-1.0); Monocytes % (A) 5 %; Neutrophils # (A) 4.4 k/uL (1.3-7.7); Neutrophils % (A) 76 %; Platelet Count 111 k/uL (150-450); RBC 3.38 m/uL (3.80-5.40); RDW 14.9 % (11.5-15.5); WBC 5.7 k/uL (3.8-10.6)
[2017-12-24 06:44] LABS: Calcium 7.7 mg/dL (8.4-10.2); Magnesium 1.9 mg/dL (1.6-2.3)
[2017-12-24] MEDS: FUROSEMIDE 10 MG/ML 2 ML VIAL IV SCH ×2 (08:35→16:00)
[2017-12-24] MEDS: LISINOPRIL 10 MG TAB PO SCH (08:37)
[2017-12-24] MEDS: ISOSORBIDE MONONITRATE ER 30 MG TAB.ER.24H PO SCH (08:37)
[2017-12-24] MEDS: SPIRONOLACTONE 25 MG TAB PO SCH (08:37)
[2017-12-24] MEDS: SODIUM CHLORIDE 0.9% 1,000 ML IV SCH (08:37)
[2017-12-24] MEDS: Acetaminophen-Codeine 300-30mg TAB PO PRN (08:45)
[2017-12-24 08:48] VITALS: RESP 18
[2017-12-24] MEDS ORDERED: LEVOFLOXACIN 750MG-D5W PMX 750 MG in DEXTROSE/WATER 1 150ML.BAG IVPB SCH (09:00)
--- NOTE | 2017-12-24 12:38 | PN ---
PROGRESS NOTE DATE OF SERVICE: 12/24/2017 Her age is 87-year-old white female. NEW DATA: Her height is 5 feet, weight 72 kg, BSA 1.69 The BMI 31 and kg per/m squared. The patient is seen today evaluated on 12/24/17 and discussed with her the current medication and problem and discussed with her the results of the chest x-ray and the chest x-ray was indicating that small bilateral pleural effusion and COPD with hyperinflation. She does not have any exacerbation at this time and she is on inhalation therapy. We also discussed the venous duplex study of the right lower extremity and the impression with there is a negative right leg for DVT and no popliteal fossa lesion with the examination is negative. The patient, because of her D- dimer, was elevated in the ER did a CT angiogram and CT angiogram was indicating there is a scarring in the subsegmental atelectasis at the lung bases, right pleural effusion and cardiomegaly and no evidence of pneumonia. The patient had by the clinical history, she has upper respiratory tract and cough and found that by laboratory event find that she had D-dimer elevation 5.16 and she was on anticoagulation but was subtherapeutic on admission and we increased the Coumadin, the warfarin from 1 mg to 2 mg. However, the half-life is 5 days and we did the chemistry profile as well. Her potassium is 4, sodium 143, and her creatinine was increased to 1.37 and BUN is 26. Her glucose is 100. No history of diabetes. Her estimated glomerular filtration rate for non- is 35. With these drops on the renal function despite we have decreased the IV fluid due to the fact of volume expansion and she has atrial fibrillation with RVR and underlying probably diastolic dysfunction, and her troponin was increased and since admission, she had a three row of troponin, 3 of them is elevated, 1st one was 0.050, 2nd one 0.041 and the 3rd one 0.043. TSH is 2.910 which is normal. No evidence of abnormalities added to her medical history and the patient had underlying treatment with inhalation therapy and as well as vitamin D. We will be checking that as well. She is on antibiotic and she is on every other day levofloxacin and with the underlying history of hypothyroidism and she maintained her thyroid to the normal range as mean the supplemental is appropriate now. The patient also we started her with the diastolic congestive heart failure and pulmonary hypertension that on the spironolactone as well and her potassium is normal at this time. We discontinue the potassium as well and we cut down on the lisinopril to 10 mg. With these elevations of the troponin, as there is no evidence of pneumonia, we will be discontinuing the levofloxacin and probably with pain starting Rocephin IV piggyback. Repeat laboratory in a.m. The patient complained of that she had the pain in the right lower quadrant and comes and goes and her kidney renal function has been increased. BUN and creatinine. I will be ordering the ultrasound of the kidney as well as a KUB to rule out any nephrolithiasis as well. On examination, she is complaining as well with the right leg calf tenderness, swelling, and pitting edema bilaterally. However, pitting edema bilaterally was present. However, the calf is tender and pitting. It appears like she has hematoma in that right calf. However, we will hold on that whole until the ultrasound of the kidney and KUB probably may be giving this understanding that it may not need further testing. CLINICAL EXAMINATION: The patient's vital signs stable. Temperature 98.5, pulse 78 and this is the atrial fibrillation, respiratory rate 18, blood pressure 142/64, mean 90. The pulse ox on room air 98. HEENT: The head was normocephalic, atraumatic. She still have the slight cough and we will be using for the upper respiratory tract and possibility of the bronchitis. We will use the Rocephin or simply 1 g a day. CHEST: Clear at this time, and she had basilar rales has been improving with the Lasix. The heart was irregular irregularities with atrial fibrillation. The abdomen was soft, positive bowel sounds. She had this recurrent pain on the right lower quadrant. Extremities: She has bilateral pitting edema in spite that the Lasix IV 20 mg q.8 hours, not really significant improvement and we will wait and also for the result. I did order leg elevation. ASSESSMENT: 1. Underlying congestive heart failure, diastolic, acute on the top of chronic. We have normal systolic function. 2. Underlying abnormal troponin. Underlying non-Q myocardial infarction is highly considered. 3. Chronic obstructive pulmonary disease. 4. Hypertension with hypertensive heart disease. 5. Atrial fibrillation with RVR. 6. Status post right total knee arthroplasty by Dr. Koroma. 7. History of infection of that knee in the past. 8. His right leg possibility hematoma of the calf. 9. Bilateral pitting edema of the lower extremities. 10.Underlying renal function, chronic kidney disease with the deterioration probably with the effect of the Levaquin. Planning at this time as mentioned above. Continue with the Lasix IV and obtaining the ultrasound. We will discontinue the Levaquin, start Rocephin and meanwhile we will continue monitoring with the laboratory and cardiac is following as well. ATTENDING PHYSICIAN: Dr. Gold. MMDARBYL / NOAMN: [id number] /
--- NOTE | 2017-12-24 12:44 | P.PN ---
Subjective Progress Note Date: 12/24/17 This is a pleasant 87-year-old female with history of chronic atrial fibrillation, hypertension, CAD, hypothyroidism. Presented to the hospital complaining of shortness of breath. She also complained of some leg edema. Initially she was thought to have pneumonia but her chest x-ray was negative for pneumonia and she's been diagnosed with CHF. Her BNP was elevated at 4450. EKG showed atrial fibrillation with nonspecific ST-T wave changes. She continues on IV Lasix 20 mg every 8 hours. Echocardiogram done earlier this month showed overall left ventricular systolic function is low normal with an ejection fraction of 50-55%, mild AR, mild MR and mild TR with moderate pulmonary hypertension. Upon examination, patient is sitting up at the side of the bed. She feels her breathing has significantly improved. She continues to have some lower extremity edema. Objective - Vital Signs Vital signs: Vital Signs Temp 97.9 F 12/24/17 11:53 Pulse 50 L 12/24/17 11:53 Resp 18 12/24/17 11:53 BP 112/73 12/24/17 11:53 Pulse Ox 97 12/24/17 11:53 Intake & Output 12/23/17 12/24/17 12/24/17 18:59 06:59 18:59 Intake Total 650 Output Total 1 Balance 649 Weight 72 kg Intake: Oral 650 Output: Stool 1 Other: Voiding Method Bedside Commode # Voids 2 - Exam PHYSICAL EXAMINATION: HEENT: Head is atraumatic, normocephalic. Pupils equal, round. Neck is supple. There is no elevated jugular venous pressure. HEART EXAMINATION: Heart sounds irregularly irregular, S1 and S2 with a systolic murmur. CHEST EXAMINATION: Lungs are clear to auscultation and precussion. No chest wall tenderness is noted on palpation or with deep breathing. ABDOMEN: Soft, nontender. Bowel sounds are heard. No organomegaly noted. EXTREMITIES: 2+ peripheral pulses with evidence of trace peripheral edema and no calf tenderness noted. NEUROLOGIC patient is awake, alert and oriented x3. . - Labs CBC & Chem 7: 12/24/17 05:29 12/24/17 05:29 Labs: Abnormal Lab Results - Last 24 Hours (Table) 12/23/17 12/23/17 12/23/17 Range/Units 10:50 16:30 23:47 RBC (3.80-5.40) m/uL Hgb (11.4-16.0) gm/dL Hct (34.0-46.0) % Plt Count (150-450) k/uL Lymphocytes # (1.0-4.8) k/uL PT (9.0-12.0) sec INR (<1.2) D-Dimer 5.16 H (<0.60) mg/L FEU BUN (7-17) mg/dL Creatinine (0.52-1.04) mg/dL Glucose (74-99) mg/dL Calcium (8.4-10.2) mg/dL Troponin I 0.041 H* 0.043 H* (0.000-0.034) ng/mL 12/24/17 12/24/17 12/24/17 Range/Units 05:29 05:29 05:29 RBC 3.38 L (3.80-5.40) m/uL Hgb 10.1 L (11.4-16.0) gm/dL Hct 31.8 L (34.0-46.0) % Plt Count 111 L (150-450) k/uL Lymphocytes # 0.8 L (1.0-4.8) k/uL PT 14.2 H (9.0-12.0) sec INR 1.5 H (<1.2) D-Dimer (<0.60) mg/L FEU BUN 26 H (7-17) mg/dL Creatinine 1.37 H (0.52-1.04) mg/dL Glucose 100 H (74-99) mg/dL Calcium 7.7 L (8.4-10.2) mg/dL Troponin I (0.000-0.034) ng/mL Microbiology - Last 24 Hours (Table) 12/22/17 18:22 Blood Culture - Preliminary Blood No Growth after 24 hours Assessment and Plan Assessment: #1 acute on chronic diastolic congestive heart failure #2 chronic atrial fibrillation #3 history of CAD #4 elevated troponin, likely secondary to supply demand mismatch and not reflective of [place] Plan: From cardiology perspective, medications were reviewed and we will continue the same at this time. Continue to monitor BUN, creatinine, electrolytes and daily weights. We will continue to follow the patient provide further recommendations accordingly. The above dictated assessment and findings were discussed with signing physician. The impression and plan of care have been directed as dictated. Rima Kenny, Nurse Practitioner, acting as scribe for signing physician.
--- NOTE | 2017-12-24 13:31 | US ---
EXAMINATION TYPE: US kidneys/renal and bladder DATE OF EXAM: 12/24/2017 COMPARISON: Previous study dated 03/30/2012 CLINICAL HISTORY: CK D stage III progressive with hypertension. EXAM MEASUREMENTS: Right Kidney: 9.7 x 3.8 x 3.7 cm Left Kidney: 9.3 x 5.0 x 4.9 cm Post Void Residual Volume: not assessed on inpatient Right Kidney: No hydronephrosis or masses seen Left Kidney: No hydronephrosis or masses seen; thicker cortex seen mid pole Bladder: wnl Bilateral Jets seen: yes, small ureteral jets were seen IMPRESSION: NORMAL RENAL ULTRASOUND.
--- NOTE | 2017-12-24 13:40 | XR ---
EXAMINATION TYPE: XR KUB portable , 2 VIEWS DATE OF EXAM ORDERED: 12/24/2017 HISTORY: Pain in the right lower quadrant and flank rule ou. COMPARISON: None. FINDINGS: There are small, bilateral effusions. The lung bases are otherwise clear. Within the abdomen, the gallbladder is been removed. The abdominal gas pattern is normal. There is no evidence of obstruction or free air. There are several long air-fluid levels in the colon which may represent colonic ileus. No unusual calcifications are seen. IMPRESSION: 1. SMALL, BILATERAL EFFUSIONS. 2. FINDINGS CONSISTENT WITH COLONIC ILEUS.
[2017-12-24] MEDS: PRAVASTATIN SODIUM 40 MG TAB PO SCH (20:17)
[2017-12-24] MEDS: LATANOPROST 0.005% OPHTH DROPS 2.5 ML BTL BOTH EYES SCH (20:17)
[2017-12-24] MEDS: WARFARIN 2 MG TAB PO SCH (20:17)
[2017-12-24] MEDS: ALPRAZolam 0.5 MG TAB PO SCH (21:59)
[2017-12-25] MEDS: FUROSEMIDE 10 MG/ML 2 ML VIAL IV SCH ×2 (00:07→08:44)
[2017-12-25] MEDS: LEVOTHYROXINE 112 MCG TAB PO SCH (06:57)
[2017-12-25] MEDS: PANTOPRAZOLE 40 MG TABLET PO SCH (06:57)
[2017-12-25] MEDS: CARVEDILOL 3.125 MG TAB PO SCH (06:57)
[2017-12-25 07:36] LABS: Basophils % (A) 0 %; Eosinophils # (A) 0.3 k/uL (0-0.7); Eosinophils % (A) 5 %; HCT 34.9 % (34.0-46.0); HGB 10.8 gm/dL (11.4-16.0); Hypochromasia Slight; Lymphocytes # (A) 0.9 k/uL (1.0-4.8); Lymphocytes % (A) 16 %; MCV 93.7 fL (80.0-100.0); Mean Platelet Volume 7.1; Monocytes # (A) 0.3 k/uL (0-1.0); Monocytes % (A) 5 %; Neutrophils % (A) 71 %; Platelet Count 117 k/uL (150-450); RBC 3.72 m/uL (3.80-5.40); RDW 14.7 % (11.5-15.5); WBC 5.6 k/uL (3.8-10.6)
[2017-12-25 07:45] LABS: Calcium 8.5 mg/dL (8.4-10.2); Potassium 4.5 mmol/L (3.5-5.1)
[2017-12-25 07:47] LABS: INR 1.6 (<1.2); Prothrombin Time 14.8 sec (9.0-12.0)
[2017-12-25] MEDS: SPIRONOLACTONE 25 MG TAB PO SCH (08:44)
[2017-12-25] MEDS: LISINOPRIL 10 MG TAB PO SCH (08:44)
[2017-12-25] MEDS: ISOSORBIDE MONONITRATE ER 30 MG TAB.ER.24H PO SCH (08:44)
[2017-12-25] MEDS: Acetaminophen-Codeine 300-30mg TAB PO PRN (08:51)
[2017-12-25] MEDS: IPRATROPIUM-ALBUTEROL 3 ML NEB INHALATION PRN (09:33)
[2017-12-25 12:23] VITALS: PULSE 83; TEMP 98
[2017-12-25 12:26] VITALS: BP 107/61
--- NOTE | 2017-12-25 12:33 | P.PN ---
Subjective Progress Note Date: 12/25/17 This is a pleasant 87-year-old female with history of chronic atrial fibrillation, hypertension, CAD, hypothyroidism. Presented to the hospital complaining of shortness of breath. She also complained of some leg edema. Initially she was thought to have pneumonia but her chest x-ray was negative for pneumonia and she's been diagnosed with CHF. Her BNP was elevated at 4450. EKG showed atrial fibrillation with nonspecific ST-T wave changes. She continues on IV Lasix 20 mg every 8 hours. Echocardiogram done earlier this month showed overall left ventricular systolic function is low normal with an ejection fraction of 50-55%, mild AR, mild MR and mild TR with moderate pulmonary hypertension. Upon examination, patient is sitting up at the side of the bed. She feels her breathing has significantly improved. She continues to have some lower extremity edema. 12/25/2017 Patient seen and examined this morning, overall feeling better. Blood pressure 108/60 with a heart rate in the 80s, 96% on room air. White blood cell count 5.6, hemoglobin 10.8, platelet count 117. INR today 1.6, sodium 141, potassium 4.5, BUN 28, creatinine 1.5. We will discontinue the IV Lasix today and start the patient on Lasix 40 mg one tablet by mouth twice a day. Her weight is down 2 kg today. Objective - Vital Signs Vital signs: Vital Signs Temp 98.0 F 12/25/17 12:00 Pulse 83 12/25/17 12:00 Resp 18 12/25/17 12:00 BP 107/61 12/25/17 12:00 Pulse Ox 96 12/25/17 12:00 Intake & Output 12/24/17 12/25/17 12/25/17 18:59 06:59 18:59 Intake Total 480 420 Output Total 500 301 Balance -20 119 Weight 70.5 kg Intake: Oral 480 420 Output: Urine 500 300 Stool 1 Other: Voiding Method Bedside Commode Bedside Commode # Voids 1 - Exam PHYSICAL EXAMINATION: HEENT: Head is atraumatic, normocephalic. Pupils equal, round. Neck is supple. There is no elevated jugular venous pressure. HEART EXAMINATION: Heart sounds irregularly irregular, S1 and S2 with a systolic murmur. CHEST EXAMINATION: Lungs are clear to auscultation and precussion. No chest wall tenderness is noted on palpation or with deep breathing. ABDOMEN: Soft, nontender. Bowel sounds are heard. No organomegaly noted. EXTREMITIES: 2+ peripheral pulses with evidence of trace peripheral edema and no calf tenderness noted. NEUROLOGIC patient is awake, alert and oriented x3. . - Labs CBC & Chem 7: 12/25/17 06:26 12/25/17 06:26 Labs: Abnormal Lab Results - Last 24 Hours (Table) 12/25/17 12/25/17 12/25/17 Range/Units 06:26 06:26 06:26 RBC 3.72 L (3.80-5.40) m/uL Hgb 10.8 L (11.4-16.0) gm/dL Plt Count 117 L (150-450) k/uL Lymphocytes # 0.9 L (1.0-4.8) k/uL PT 14.8 H (9.0-12.0) sec INR 1.6 H (<1.2) BUN 28 H (7-17) mg/dL Creatinine 1.53 H (0.52-1.04) mg/dL Microbiology - Last 24 Hours (Table) 12/22/17 18:22 Blood Culture - Preliminary Blood No Growth after 48 hours Assessment and Plan Plan: Assessment: #1 acute on chronic diastolic congestive heart failure #2 chronic atrial fibrillation #3 history of CAD #4 elevated troponin, likely secondary to supply demand mismatch and not reflective of [place] Plan We will discontinue the IV Lasix today and start the patient on Lasix 40 mg by mouth twice a day. She may be able to be discharged home once cleared by primary and we'll make a follow-up appointment with Dr. Rao in the next 3 days. DNP note has been reviewed, I agree with a documented findings and plan of care. Patient was seen and examined.
[2017-12-25 14:27] LABS: Iron Saturation 8.08 (12.00-45.00)
--- NOTE | 2017-12-25 14:52 | DS ---
DISCHARGE SUMMARY ATTENDING PHYSICIAN: Dr. Gold. DATE OF SERVICE: 12/25/2017 AGE: An 87-year-old white female, date of 1930, room #680, bed 2. . Height 5 feet, weight 70.5 kg, BSA 1.68 m2, BMI 30.4 kg/m2. Allergy is to EYEDROPS. The name of the eyedrops is BRIMONIDINE AND BRINZOLAMIDE. FINAL DIAGNOSES: 1. Atrial fibrillation with rapid ventricular response. Diastolic congestive heart failure. 2. No evidence of pneumonia or acquired pneumonia by the chest x-ray as well as a CT angiogram. No evidence of acute pulmonary edema, subsequently. 3. Underlying chronic obstructive pulmonary disease with the mild upper respiratory tract with bronchitis. 4. Hypothyroidism has been stable with the treatment. 5. Recovery from the atrial fib with rapid ventricular response to just atrial fibrillation. CONSULTING PHYSICIAN: Dr. Elio Mejía, Cardiology. Also underlying elevated troponin and Dr. Ballard indicating in his impression, acute on the top of chronic diastolic congestive heart failure, chronic atrial fibrillation, history of coronary artery disease and elevated troponin, likely secondary to supply and demand mismatch and no reflective of myocardial infarction and patient increased her Lasix to 40 [address]o. b.i.d. by Dr. Burns and patient, she will be going home today as cleared and to follow up with Dr. Rao in the next 3 days. On current examination, on discharge and patient vital sign is stable. Her blood pressure was 131/64, mean 68, and her pulse rate 83, irregular, and respiratory rate 16, temperature 98. Orally HEENT: the head was normocephalic, atraumatic. Pupil was reactive. Oropharynx was negative. Neck was supple and the chest was underlying increased anteroposterior diameter and underlying chronic COPD; however, it is improved and improved lung aeration. The heart is PMI in the fifth outside midclavicular line with a normal ejection fraction in the 9/10 echocardiogram. The abdomen is soft, positive bowel sounds and she had normal BM. No evidence of ileus. Extremities: She has right total knee arthroplasty and probably she had the right leg hematoma with the surgery on the lateral compartment and she received physical therapy at Dr. Koroma's office and she will discuss with him this swelling and the ultrasound of the right lower extremities was negative of DVT. Her pulses intact. The left leg also she had trace edema and we increased her Lasix to 40 mg twice a day. ASSESSMENT: Patient in stable general condition and she wishing to go home as well. Her daughter at bedside and will be discharging the patient to be followed by Dr. Gold as outpatient. If she has any questions, she may be able to call my office and we will carry on until the doctor until Dr. Gold returned from his out of town. MMODL / IJN: [id number] /
[2017-12-25] MEDS ORDERED: FUROSEMIDE 40 MG TAB PO SCH (16:00)
[2017-12-25] MEDS ORDERED: CARVEDILOL 6.25 MG TAB PO SCH (17:30)
[2017-12-25] MEDS ORDERED: WARFARIN 2.5 MG TAB PO SCH (21:00)
== END 2017-12-25 14:39 | disposition home or self-care (01) | DRG 291 ==
LOC: EC 17:17 → 6SEL 18:11
PROVIDERS: ADMIT Internal Medicine; ATTEND Internal Medicine
DX: I13.0 Hypertensive heart and chronic kidney disease with heart failure and stage 1 through stage 4 chronic kidney disease, or unspecified chronic kidney disease (principal); I50.33 Acute on chronic diastolic (congestive) heart failure; J98.11 Atelectasis; J44.0 Chronic obstructive pulmonary disease with (acute) lower respiratory infection; J44.1 Chronic obstructive pulmonary disease with (acute) exacerbation; I24.8 Other forms of acute ischemic heart disease; D69.6 Thrombocytopenia, unspecified; I27.20 Pulmonary hypertension, unspecified; I08.1 Rheumatic disorders of both mitral and tricuspid valves; N18.3 Chronic kidney disease, stage 3 (moderate); I48.2 Chronic atrial fibrillation; J20.9 Acute bronchitis, unspecified; I37.1 Nonrheumatic pulmonary valve insufficiency; D64.9 Anemia, unspecified; B34.9 Viral infection, unspecified; E03.9 Hypothyroidism, unspecified; I25.10 Atherosclerotic heart disease of native coronary artery without angina pectoris; K21.9 Gastro-esophageal reflux disease without esophagitis; E78.5 Hyperlipidemia, unspecified; M19.91 Primary osteoarthritis, unspecified site; S80.11XA Contusion of right lower leg, initial encounter; Z79.01 Long term (current) use of anticoagulants; Z79.890 Hormone replacement therapy; Z79.899 Other long term (current) drug therapy; Z90.49 Acquired absence of other specified parts of digestive tract; Z95.5 Presence of coronary angioplasty implant and graft; Z90.710 Acquired absence of both cervix and uterus; Z96.651 Presence of right artificial knee joint; Z87.891 Personal history of nicotine dependence; Z88.8 Allergy status to other drugs, medicaments and biological substances; Z84.89 Family history of other specified conditions; Z80.9 Family history of malignant neoplasm, unspecified; Z83.3 Family history of diabetes mellitus
CPT/HCPCS: 36415; 71046; 71275; 74018; 76770; 80048; 80053; 82306; 82550; 82553; 82728; 83540; 83550; 83735; 83880; 84443; 84484; 85025; 85379; 85610; 85730; 87040; 94640; 96365; 99285

== ENCOUNTER 2018-01-22 08:37 | Day surgery (SDC) | payer MEDICARE, BC ==
[2018-01-19 08:32] VITALS: BMI 26.4
[~2018-01-22 08:37] MED LIST: SODIUM CHLORIDE 0.9% 1,000 ML IV SCH
[2018-01-22 08:58] VITALS: RESP 16; TEMP 98.2
[2018-01-22] MEDS ORDERED: SODIUM CHLORIDE 0.9% 500 ML 500 ML IV ONE (09:07)
[2018-01-22 09:26] LABS: Prothrombin Time 35.9 sec (9.0-12.0)
[2018-01-22 12:05] VITALS: BP 132/74; PULSE 72
--- NOTE | 2018-01-22 13:51 | P.PCN ---
Preoperative Diagnosis: Diagnosis Dizzy spells Twelve-lead ECG Atrial fibrillation Ventricular rate 92 beats a minute at rest narrow QRS Tilt table test per protocol Baseline blood pressure 162/77 mmHg Baseline heart rate 90 beats a minute patient was tilted upright at an angle of 70 per protocol there was no significant change in her heart rate and blood pressure She was laid supine at the end of the procedure Impression Atrial fibrillation with resting heart rates in the 90s No evidence for neurocardiogenic syncope Anesthesia: none Disposition: same day
== END 2018-01-22 12:40 | disposition home or self-care (01) ==
LOC: CATHEP 08:37
PROVIDERS: ATTEND Internal Medicine Clinical Cardiac Electrophysiology
DX: I48.91 Unspecified atrial fibrillation (principal); R42 Dizziness and giddiness
CPT/HCPCS: 85610; 93660

== ENCOUNTER → 2018-06-07 | Outpatient (CLI) | payer MEDICARE, BC ==
[2018-06-07 17:39] LABS: Albumin 3.9 g/dL (3.80-4.90); Albumin/Globulin Ratio 1.7 (1.60-3.17); Anion Gap 7.5 mmol/L (4.00-12.00); Calcium 8.9 mg/dL (8.7-10.3); Carbon Dioxide 30.5 mmol/L (21.6-31.8); Globulin 2.3 g/dL (1.6-3.3); Potassium 3.5 mmol/L (3.5-5.5); Total Bilirubin 0.6 mg/dL (0.3-1.2); Total Protein 6.2 g/dL (6.2-8.2)
[2018-06-07 17:47] LABS: T4, Free (Free Thyroxine) 1.4 ng/dL (0.80-1.80)
== END ==
LOC: LABWHC1 10:39
PROVIDERS: ATTEND Internal Medicine Endocrinology, Diabetes & Metabolism
DX: E55.9 Vitamin D deficiency, unspecified (principal); E89.0 Postprocedural hypothyroidism; M81.0 Age-related osteoporosis without current pathological fracture
CPT/HCPCS: 36415; 80053; 82306; 84439; 84443

== ENCOUNTER 2018-06-09 18:20 | Inpatient (IN) | payer MEDICARE, BC ==
[2018-06-09] MEDS ORDERED: ACETAMINOPHEN TAB 325 MG TAB PO STA (18:37)
[2018-06-09] MEDS ORDERED: IPRATROPIUM-ALBUTEROL 3 ML NEB INHALATION STA (18:38)
--- NOTE | 2018-06-09 18:43 | ED ---
SOB HPI - General Chief Complaint: Shortness of Breath Stated Complaint: Sob/cough Time Seen by Provider: 06/09/18 18:26 Source: EMS Mode of arrival: EMS Limitations: no limitations - History of Present Illness Initial Comments: Patient is an 87-year-old female presenting for cough and congestion. The patient states that she has had the symptoms since Monday and they're getting worse. She denies any fevers or chills but states that she was having a little bit of chest pain secondary to coughing. She denies any nausea/vomiting/diarrhea and states that she has been hospitalized last 90 days. She states that she has no history of COPD or emphysema does not use nausea home. - Related Data Home Medications Medication Instructions Recorded Confirmed ALPRAZolam [Xanax] 0.5 mg PO HS 12/03/17 06/09/18 Carvedilol [Coreg] 3.125 mg PO BID 12/03/17 06/09/18 Ergocalciferol (Vitamin D2) 50,000 unit PO SA 12/03/17 06/09/18 [Vitamin D2] Isosorbide Mononitrate ER [Imdur] 30 mg PO DAILY 12/03/17 06/09/18 Latanoprost [Xalatan 0.005%] 1 drop BOTH EYES HS 12/03/17 06/09/18 Levothyroxine Sodium 112 mcg PO DAILY 12/03/17 06/09/18 Pravastatin Sodium [Pravachol] 40 mg PO HS 12/03/17 06/09/18 Acetaminophen with Codeine 1 tab PO Q6H PRN 06/09/18 06/09/18 [Tylenol w/codeine #3] Ipratropium-Albuterol Nebulize 3 ml INHALATION RT-Q4H PRN 06/09/18 06/09/18 [Duoneb 0.5 mg-3 mg/3 ml Soln] Nitroglycerin Sl Tabs [Nitrostat] 0.4 mg SUBLINGUAL Q5M PRN 06/09/18 06/09/18 Pantoprazole [Protonix] 40 mg PO DAILY 06/09/18 06/09/18 Previous Rx's Medication Instructions Recorded Albuterol Inhaler [Ventolin Hfa 1 - 2 puff INHALATION RT-Q6H PRN 12/06/17 Inhaler] #1 inhaler Furosemide [Lasix] 40 mg PO BID@0900,1600 #60 tab 12/25/17 Lisinopril [Zestril] 10 mg PO DAILY #30 tab 12/25/17 Spironolactone [Aldactone] 25 mg PO DAILY #30 tab 12/25/17 Warfarin [Coumadin] 2.5 mg PO HS #30 tab 12/25/17 Allergies Allergy/AdvReac Type Severity Reaction Status Date / Time brimonidine [From Simbrinza] Allergy Unknown Verified 06/09/18 19:47 brinzolamide [From Simbrinza] Allergy Unknown Verified 06/09/18 19:47 Review of Systems ROS Statement: Those systems with pertinent positive or pertinent negative responses have been documented in the HPI. Constitutional: Negative for chills, fatigue and fever. HENT: Negative for congestion. Respiratory: Negative for chest tightness, positive for shortness of breath and wheezing. Positive for cough Cardiovascular: Negative for chest pain and palpitations. Gastrointestinal: Negative for abdominal pain. Negative for abdominal distention, diarrhea, and vomiting. Positive for nausea Genitourinary: Negative for dysuria. Musculoskeletal: Negative for back pain, neck pain and neck stiffness. Skin: Negative for color change. Neurological: Negative for dizziness, speech difficulty, weakness and light-he adedness. Psychiatric/Behavioral: Negative for agitation and confusion. Negative for anxiety ROS Other: All systems not noted in ROS Statement are negative. Past Medical History Past Medical History: Atrial Fibrillation, Coronary Artery Disease (CAD), Heart Failure, GERD/Reflux, Hyperlipidemia, Hypertension, Pneumonia, Thyroid Disorder Additional Past Medical History / Comment(s): SEE DR RAMIREZ H&P, "weak kidneys", takes xanax to help her sleep, glaucoma fco eyes History of Any Multi-Drug Resistant Organisms: None Reported Past Surgical History: Cholecystectomy, Heart Catheterization With Stent, Hysterectomy, Orthopedic Surgery, Tonsillectomy Additional Past Surgical History / Comment(s): right knee replacement, carpal tunnel release, "thyroidectomy", fco feet -heel spurs, cataracts-lens implants. Past Anesthesia/Blood Transfusion Reactions: No Reported Reaction Date of Last Stent Placement:: 2013 Past Psychological History: No Psychological Hx Reported Smoking Status: Former smoker Past Alcohol Use History: None Reported Past Drug Use History: None Reported - Past Family History Daughter(s) Additional Family Medical History / Comment(s): short term memory loss Father Additional Family Medical History / Comment(s): denies family history of cancer or DM in her mother General Exam - General Exam Comments Initial Comments: Constitutional: Pt appears well-developed and well-nourished. No distress. Head: Normocephalic and atraumatic. Eyes: EOM are normal. Neck: Normal range of motion. Neck supple. Cardiovascular: Normal rate, regular rhythm, S1 normal, S2 normal and normal heart sounds. Exam reveals no gallop and no friction rub. No murmur heard. Pulmonary/Chest: Effort normal and breath sounds normal. No tachypnea and no bradypnea. No respiratory distress. No wheezes or rales noted. Diffuse rhonchi noted in all lung singer Abdominal: Soft. Bowel sounds are normal. Pt exhibits no shifting dullness, no distension, no pulsatile liver, no fluid wave, no abdominal bruit and no ascites. There is no rigidity, no rebound, no guarding, no tenderness at McBurney's point and negative Dorantes's sign. There is no tenderness. Musculoskeletal: Normal range of motion. Neurological: Pt is alert and oriented to person, place, and time. No cranial nerve deficit. Skin: Skin is warm and dry. No rash noted. Pt is not diaphoretic. No erythema. No pallor. Psychiatric: Pt has a normal mood and affect. Pt behavior is normal. Thought content normal. Limitations: no limitations Course Vital Signs 06/09/18 06/09/18 06/09/18 18:22 19:14 19:21 Temperature 98.7 F Pulse Rate 71 97 87 Respiratory 18 Rate Blood Pressure 190/83 O2 Sat by Pulse 95 Oximetry 06/09/18 20:30 Temperature Pulse Rate 106 H Respiratory 17 Rate Blood Pressure 141/75 O2 Sat by Pulse 98 Oximetry Medical Decision Making - Medical Decision Making Evaluation was consistent with CHF as chest x-ray showed bilateral effusions and BNP was also elevated at 2950. Troponin was noted to be negative and EKG had no significant abnormality findings. However, patient was tachycardic upon arrival and therefore it is thought that it is unsafe to send her home. Therefore the patient was also given Lasix as well as nitro paste for treatment of CHF. Explained all labs and diagnostic test results and that we will admit patient to hospital. Pt is agreeable to plan and case has been discussed with Dr. Bueno and they agree to accept the pt. - Lab Data Result diagrams: 06/09/18 18:26 06/09/18 18:26 Lab Results 06/09/18 06/09/18 06/09/18 Range/Units 18:26 18:26 18:26 WBC 6.1 (3.8-10.6) k/uL RBC 4.00 (3.80-5.40) m/uL Hgb 11.1 L (11.4-16.0) gm/dL Hct 34.9 (34.0-46.0) % MCV 87.3 (80.0-100.0) fL MCH 27.8 (25.0-35.0) pg MCHC 31.9 (31.0-37.0) g/dL RDW 14.8 (11.5-15.5) % Plt Count 175 (150-450) k/uL Neutrophils % 75 % Lymphocytes % 15 % Monocytes % 5 % Eosinophils % 3 % Basophils % 0 % Neutrophils # 4.6 (1.3-7.7) k/uL Lymphocytes # 0.9 L (1.0-4.8) k/uL Monocytes # 0.3 (0-1.0) k/uL Eosinophils # 0.2 (0-0.7) k/uL Basophils # 0.0 (0-0.2) k/uL PT (9.0-12.0) sec INR (<1.2) APTT (22.0-30.0) sec Sodium 138 (137-145) mmol/L Potassium 3.6 (3.5-5.1) mmol/L Chloride 99 (98-107) mmol/L Carbon Dioxide 29 (22-30) mmol/L Anion Gap 10 mmol/L BUN 32 H (7-17) mg/dL Creatinine 1.54 H (0.52-1.04) mg/dL Est GFR (CKD-EPI)AfAm 35 (>60 ml/min/1.73 sqM) Est GFR (CKD-EPI)NonAf 30 (>60 ml/min/1.73 sqM) Glucose 117 H (74-99) mg/dL Plasma Lactic Acid Jose (0.7-2.0) mmol/L Calcium 9.0 (8.4-10.2) mg/dL Total Bilirubin 0.8 (0.2-1.3) mg/dL AST 22 (14-36) U/L ALT 31 (9-52) U/L Alkaline Phosphatase 110 (38-126) U/L Troponin I (0.000-0.034) ng/mL NT-Pro-B Natriuret Pep pg/mL Total Protein 7.2 (6.3-8.2) g/dL Albumin 4.0 (3.5-5.0) g/dL Influenza Type A RNA Not Detected (Not Detectd) Influenza Type B (PCR) Not Detected (Not Detectd) 06/09/18 06/09/18 06/09/18 Range/Units 18:26 18:26 18:26 WBC (3.8-10.6) k/uL RBC (3.80-5.40) m/uL Hgb (11.4-16.0) gm/dL Hct (34.0-46.0) % MCV (80.0-100.0) fL MCH (25.0-35.0) pg MCHC (31.0-37.0) g/dL RDW (11.5-15.5) % Plt Count (150-450) k/uL Neutrophils % % Lymphocytes % % Monocytes % % Eosinophils % % Basophils % % Neutrophils # (1.3-7.7) k/uL Lymphocytes # (1.0-4.8) k/uL Monocytes # (0-1.0) k/uL Eosinophils # (0-0.7) k/uL Basophils # (0-0.2) k/uL PT 16.0 H (9.0-12.0) sec INR 1.6 H (<1.2) APTT 25.4 (22.0-30.0) sec Sodium (137-145) mmol/L Potassium (3.5-5.1) mmol/L Chloride (98-107) mmol/L Carbon Dioxide (22-30) mmol/L Anion Gap mmol/L BUN (7-17) mg/dL Creatinine (0.52-1.04) mg/dL Est GFR (CKD-EPI)AfAm (>60 ml/min/1.73 sqM) Est GFR (CKD-EPI)NonAf (>60 ml/min/1.73 sqM) Glucose (74-99) mg/dL Plasma Lactic Acid Jose 0.8 (0.7-2.0) mmol/L Calcium (8.4-10.2) mg/dL Total Bilirubin (0.2-1.3) mg/dL AST (14-36) U/L ALT (9-52) U/L Alkaline Phosphatase (38-126) U/L Troponin I <0.012 (0.000-0.034) ng/mL NT-Pro-B Natriuret Pep pg/mL Total Protein (6.3-8.2) g/dL Albumin (3.5-5.0) g/dL Influenza Type A RNA (Not Detectd) Influenza Type B (PCR) (Not Detectd) 06/09/18 Range/Units 18:26 WBC (3.8-10.6) k/uL RBC (3.80-5.40) m/uL Hgb (11.4-16.0) gm/dL Hct (34.0-46.0) % MCV (80.0-100.0) fL MCH (25.0-35.0) pg MCHC (31.0-37.0) g/dL RDW (11.5-15.5) % Plt Count (150-450) k/uL Neutrophils % % Lymphocytes % % Monocytes % % Eosinophils % % Basophils % % Neutrophils # (1.3-7.7) k/uL Lymphocytes # (1.0-4.8) k/uL Monocytes # (0-1.0) k/uL Eosinophils # (0-0.7) k/uL Basophils # (0-0.2) k/uL PT (9.0-12.0) sec INR (<1.2) APTT (22.0-30.0) sec Sodium (137-145) mmol/L Potassium (3.5-5.1) mmol/L Chloride (98-107) mmol/L Carbon Dioxide (22-30) mmol/L Anion Gap mmol/L BUN (7-17) mg/dL Creatinine (0.52-1.04) mg/dL Est GFR (CKD-EPI)AfAm (>60 ml/min/1.73 sqM) Est GFR (CKD-EPI)NonAf (>60 ml/min/1.73 sqM) Glucose (74-99) mg/dL Plasma Lactic Acid Jose (0.7-2.0) mmol/L Calcium (8.4-10.2) mg/dL Total Bilirubin (0.2-1.3) mg/dL AST (14-36) U/L ALT (9-52) U/L Alkaline Phosphatase (38-126) U/L Troponin I (0.000-0.034) ng/mL NT-Pro-B Natriuret Pep 2950 pg/mL Total Protein (6.3-8.2) g/dL Albumin (3.5-5.0) g/dL Influenza Type A RNA (Not Detectd) Influenza Type B (PCR) (Not Detectd) - EKG Data EKG Comments: EKG shows atrial fibrillation with PVCs. Rate of 86 bpm, QRS 88, QTC 426. There are no significant ST depressions or elevations Disposition Clinical Impression: CHF exacerbation Disposition: ADMITTED IP TO THIS HOSP Condition: Fair Referrals: Koko Gold MD [Primary Care Provider] - 1-2 days Time of Disposition: 20:29 Decision to Admit Reason: Admit from EC Decision Date: 06/09/18 Decision Time: 20:29
[2018-06-09 18:55] LABS: Basophils % (A) 0 %; Eosinophils # (A) 0.2 k/uL (0-0.7); Eosinophils % (A) 3 %; HCT 34.9 % (34.0-46.0); HGB 11.1 gm/dL (11.4-16.0); Lymphocytes # (A) 0.9 k/uL (1.0-4.8); Lymphocytes % (A) 15 %; MCH 27.8 pg (25.0-35.0); MCHC 31.9 g/dL (31.0-37.0); MCV 87.3 fL (80.0-100.0); Mean Platelet Volume 6.6; Monocytes # (A) 0.3 k/uL (0-1.0); Monocytes % (A) 5 %; Neutrophils # (A) 4.6 k/uL (1.3-7.7); Neutrophils % (A) 75 %; Platelet Count 175 k/uL (150-450); RDW 14.8 % (11.5-15.5); WBC 6.1 k/uL (3.8-10.6)
[2018-06-09 19:05] LABS: Potassium 3.6 mmol/L (3.5-5.1); Total Bilirubin 0.8 mg/dL (0.2-1.3); Total Protein 7.2 g/dL (6.3-8.2)
--- NOTE | 2018-06-09 19:07 | XR ---
EXAMINATION TYPE: XR chest 2V DATE OF EXAM: 06/09/2018 COMPARISON: 12/23/2017 HISTORY: Cough TECHNIQUE: Frontal and lateral views of the chest are obtained. FINDINGS: There is mild pulmonary vascular congestion. Heart appears slightly enlarged. There is cyndie nting of costophrenic angles. Pleural fluid is more on the right side than the left. IMPRESSION: Mild congestive heart failure that is worse than last exam.
[2018-06-09 19:21] LABS: INR 1.6 (<1.2); Partial Thromboplastin Time 25.4 sec (22.0-30.0)
[2018-06-09] MEDS ORDERED: FUROSEMIDE 10 MG/ML 4 ML VIAL IV STA (20:11)
[2018-06-09] MEDS ORDERED: NITROGLYCERIN 0.3MG/HR PATCH TRANSDERM ONE (20:26)
[2018-06-09] MEDS ORDERED: NITROGLYCERIN SL TABS 0.4 MG TAB SUBLINGUAL PRN (21:34)
[2018-06-09] MEDS ORDERED: WARFARIN 3 MG TAB PO ONE (22:00)
[2018-06-09] MEDS: CARVEDILOL 12.5 MG TAB PO SCH (22:24)
[2018-06-09] MEDS: ALPRAZolam 0.5 MG TAB PO SCH (22:24)
--- NOTE | 2018-06-09 22:26 | P.HPIM ---
History of Present Illness H&P Date: 06/09/18 (Dictation #[id number]) Past Medical History Past Medical History: Atrial Fibrillation, Coronary Artery Disease (CAD), Heart Failure, GERD/Reflux, Hyperlipidemia, Hypertension, Pneumonia, Thyroid Disorder Additional Past Medical History / Comment(s): SEE DR RAMIREZ H&P, "weak kidneys", takes xanax to help her sleep, glaucoma fco eyes History of Any Multi-Drug Resistant Organisms: None Reported Past Surgical History: Cholecystectomy, Heart Catheterization With Stent, Hysterectomy, Orthopedic Surgery, Tonsillectomy Additional Past Surgical History / Comment(s): right knee replacement, carpal tunnel release, "thyroidectomy", fco feet -heel spurs, cataracts-lens implants. Past Anesthesia/Blood Transfusion Reactions: No Reported Reaction Date of Last Stent Placement:: 2013 Past Psychological History: No Psychological Hx Reported Additional Psychological History / Comment(s): pt's daughter abimbola lives with pt. in past [facility] goes to pt. has walker/cane Smoking Status: Former smoker Past Alcohol Use History: None Reported Additional Past Alcohol Use History / Comment(s): started smoking at age 20(195) and quit 1987.smoked less than a pack per day Past Drug Use History: None Reported - Past Family History Daughter(s) Additional Family Medical History / Comment(s): short term memory loss Father Additional Family Medical History / Comment(s): denies family history of cancer or DM in her mother Medications and Allergies Home Medications Medication Instructions Recorded Confirmed Type ALPRAZolam [Xanax] 0.5 mg PO 12/03/17 06/09/18 History Carvedilol [Coreg] 3.125 mg PO BID 12/03/17 06/09/18 History Ergocalciferol (Vitamin D2) 50,000 unit PO SA 12/03/17 06/09/18 History [Vitamin D2] Isosorbide Mononitrate ER [Imdur] 30 mg PO DAILY 12/03/17 06/09/18 History Latanoprost [Xalatan 0.005%] 1 drop BOTH EYES HS 12/03/17 06/09/18 History Levothyroxine Sodium 112 mcg PO DAILY 12/03/17 06/09/18 History Pravastatin Sodium [Pravachol] 40 mg PO HS 12/03/17 06/09/18 History Albuterol Inhaler [Ventolin Hfa 1 - 2 puff INHALATION RT-Q6H PRN 12/06/17 06/09/18 Rx Inhaler] #1 inhaler Furosemide [Lasix] 40 mg PO BID@0900,1600 #60 tab 12/25/17 06/09/18 Rx Lisinopril [Zestril] 10 mg PO DAILY #30 tab 12/25/17 06/09/18 Rx Spironolactone [Aldactone] 25 mg PO DAILY #30 tab 12/25/17 06/09/18 Rx Warfarin [Coumadin] 2.5 mg PO HS #30 tab 12/25/17 06/09/18 Rx Acetaminophen with Codeine 1 tab PO Q6H PRN 06/09/18 06/09/18 History [Tylenol w/codeine #3] Ipratropium-Albuterol Nebulize 3 ml INHALATION RT-Q4H PRN 06/09/18 06/09/18 History [Duoneb 0.5 mg-3 mg/3 ml Soln] Nitroglycerin Sl Tabs [Nitrostat] 0.4 mg SUBLINGUAL Q5M PRN 06/09/18 06/09/18 History Pantoprazole [Protonix] 40 mg PO DAILY 06/09/18 06/09/18 History Allergies Allergy/AdvReac Type Severity Reaction Status Date / Time brimonidine [From Simbrinza] Allergy Unknown Verified 06/09/18 19:47 brinzolamide [From Simbrinza] Allergy Unknown Verified 06/09/18 19:47 Physical Exam Vitals: Vital Signs Temp Pulse Pulse Resp BP BP Pulse Ox 06/09/18 21:30 98.3 F 95 18 183/70 97 06/09/18 20:30 106 H 17 141/75 98 06/09/18 19:21 87 06/09/18 19:14 97 06/09/18 18:22 98.7 F 71 18 190/83 95 Intake and Output 06/09/18 06/09/18 06/09/18 06:59 14:59 22:59 Other: Weight 73.4 kg Results CBC & Chem 7: 06/09/18 18:26 06/09/18 18:26 Labs: Abnormal Lab Results - Last 24 Hours (Table) 06/09/18 06/09/18 06/09/18 Range/Units 18:26 18:26 18:26 Hgb 11.1 L (11.4-16.0) gm/dL Lymphocytes # 0.9 L (1.0-4.8) k/uL PT 16.0 H (9.0-12.0) sec INR 1.6 H (<1.2) BUN 32 H (7-17) mg/dL Creatinine 1.54 H (0.52-1.04) mg/dL Glucose 117 H (74-99) mg/dL Thrombosis Risk Factor Assmnt - Choose All That Apply Any of the Below Risk Factors Present?: Yes Each Factor Represents 1 point: Heart failure (<1month), Obesity (BMI >25) Other Risk Factors: Yes Each Risk Factor Represents 3 Points: Age 75 years or older Thrombosis Risk Factor Assessment Total Risk Factor Score: 5 Thrombosis Risk Factor Assessment Level: High Risk
[2018-06-09] MEDS ORDERED: ACETAMINOPHEN TAB 325 MG TAB PO PRN (22:28)
--- NOTE | 2018-06-09 23:47 | HP ---
HISTORY AND PHYSICAL NEW DATA: The patient is 5 foot height. Weight 73.4 kg, BSA 1.71 m2, BMI 31.6 kg/m2. ALLERGY: BRIMONIDINE, BRINZOLAMIDE. CHIEF COMPLAINT: Shortness of breath preferably with the associated cough. This started on Monday, progressed until today could not handle it at home where she lives with her daughter and brought to the emergency room at [facility]. HISTORY OF PRESENT ILLNESS: 87-year-old white female has progressive shortness of breath and congestion started on Monday and does have severe cough and minimal expectoration and came today with these current problems. The patient denied any fever or chills. She has no diarrhea, no constipation. She is a ex smoker in the past many, many years and she smoked a total of 20 years in the past. Her current medication and they seen in the emergency room and they consider congestive heart failure and admitted with the underlying edema of her lower extremities, 3+. MEDICATIONS: Home medication: 1. Alprazolam 0.5 mg q.h.s. 2. Carvedilol 3.125 mg b.i.d. 3. Vitamin D2 28137 units once a week. 4. Isosorbide mononitrate 30 mg once daily. 5. She is also on eyedrops, Xalatan 0.005% 1 drop at both eyes at bedtime by her power system operator, Dr. Spicer. 6. She has also have underlying history of thyroid medication with thyroidectomy and was partial. She is on levothyroxine Sodium 112 daily. 7. Pravastatin 40 mg with a history of hyperlipidemia. 8. She is also on nebulizer every 4 hours p.r.n. with the DuoNeb. 9. Nitroglycerin sublingual. 10.Pantoprazole 40 mg daily. 11.Tylenol with codeine #3 p.r.n. REVIEW OF SYSTEMS: Reviewed the 14 bullets, the main concern is the shortness of breath and cough. Cardiovascular: She had history of 1 stent, but no chest pain or palpitation. However, she had atrial fibrillation currently with the rapid ventricular response. The respiratory mainly the associated with shortness of breath and cough and wheezing. The GI was no abdominal pain. No diarrhea. No constipation. was negative as well. No dysuria or hematuria. Musculoskeletal: She uses a walker for ambulation and negative skin for rash and neurologically she had no nausea, no vomiting, and no lateralizing signs and no history of a stroke. PAST MEDICAL HISTORY: The patient has atrial fibrillation, coronary artery disease. History of heart failure in the past. GERD with reflux, hyperlipidemia, hypertension, history of pneumonia and the thyroid disorder. She had history of anxiety and she takes Xanax for sleep. She had a glaucoma bilaterally and she had history of weak kidney. She had cholecystectomy and cardiac catheterization with one stent and she had a hysterectomy. She had arthroscopy and one right knee total arthroplasty. She had heel spurs with surgery and cataract and lens implant. Stent was done in 2013 and no psychological history and she is a former smoker for the duration of 20 years when she was young. She has been quitting for many years. She has complained of her hair of the head falling out. She does not drink or smoke. She has a family history of 2 sons and 1 daughter. She had the cholecystectomy was laparoscopically and she had as mentioned, hysterectomy. She had a right hand carpal tunnel surgery. PHYSICAL EXAMINATION: Vital signs on the floor: Her temperature 98.3 and pulse 95. It was initially 106, respiratory rate 18, her blood pressure was 183/70, and she started on the Lasix initially 40 mg IV q.8 hours. In the emergency room, however, changed to 20 mg every 6 hours. She is on 2 L nasal cannula. Examination: The patient is conscious, alert, oriented x3. Head was normocephalic, atraumatic. Pupils equal, reactive. Conjunctivae was pink. Sclerae was nonicteric. Hearing not much effect with her age. Oropharynx: She had natural teeth. Uvula midline and no ulceration. Neck was supple. No JVD. No thyromegaly. No lymphadenopathy. Trachea midline. The chest was in inspiratory rhonchi bilateral with the shortness of breath and dry crackles in the lower bases bilateral and in association with the cough. Heart: PMI in the 5th intercostal space outside midclavicular line with the underlying atrial fibrillation with heart rate was 100-105 106 with the mild increased heart rate. However, I could not appreciate gallop, but she has elevated proBNP to almost 3000. The abdomen was soft. Positive bowel sounds. No organ enlargement and extremities she had 3+ pitting edema up to the knee bilateral and she stated that has been there chronically with the presence of varicose veins bilaterally. She stated by the history that she had previously checked for a PE and DVT was negative in the past and that happened since September 2017 after she had her surgery. LABORATORY: Indicating that her white count is 6.1, hemoglobin 11.1 with a platelet count 175. She is on anticoagulation with Coumadin and aspirin, which we will be withheld the aspirin due to the increased risk of bleeding, and her pro-time today is 16 and INR 1.6 and PTT 25. Her sodium 138, potassium 3.6, chloride 99, carbon dioxide 29, anion gap of 10, BUN of 32, and creatinine 1.54 and she had history of chronic kidney disease. We had to do not have her baseline. Her estimated glomerular filtration rate is 30 for non and with the underlying NT proBNP 2950, almost 3000 and she has influenza A and influenza B. PCR was not detected. ASSESSMENT: 1. Underlying atrial fibrillation with presentation of fast ventricular response. However, started to improve. 2. Viral syndrome associated with the coughing and also with congestive heart failure, probably diastolic with the edema of the lower extremities and underlying anticoagulation. PLAN: The patient admitted to the hospital and we started her on Lasix as well as repeat the laboratory. Her plasma lactic acid was normal at 0.8, and further evaluation and treatment accordingly and repeating CBC with differential as well and BMP. Her liver function test was normal and we will try to obtain her previous echocardiogram that she has been received to the chart. Date of service 06/09/[address] Bueno in the temporary absence of Dr. Gold. Please copy to Dr. Gold. [id number] / IJN: [id number] /
[2018-06-09] MEDS: IPRATROPIUM-ALBUTEROL 3 ML NEB INHALATION PRN (23:51)
[2018-06-10] MEDS: FUROSEMIDE 10 MG/ML 2 ML VIAL IV SCH ×2 (00:48→05:45)
[2018-06-10] MEDS ORDERED: FUROSEMIDE 10 MG/ML 4 ML VIAL IV SCH (04:00)
[2018-06-10] MEDS: LEVOTHYROXINE 112 MCG TAB PO SCH (05:45)
[2018-06-10] MEDS: IPRATROPIUM-ALBUTEROL 3 ML NEB INHALATION PRN ×3 (06:04→16:23)
[2018-06-10 07:25] LABS: Basophils % (A) 1 %; Eosinophils % (A) 1 %; HCT 33.5 % (34.0-46.0); HGB 10.6 gm/dL (11.4-16.0); Hypochromasia Slight; Lymphocytes # (A) 0.4 k/uL (1.0-4.8); Lymphocytes % (A) 11 %; MCH 27.7 pg (25.0-35.0); MCHC 31.6 g/dL (31.0-37.0); MCV 87.7 fL (80.0-100.0); Mean Platelet Volume 6.6; Monocytes # (A) 0.1 k/uL (0-1.0); Monocytes % (A) 3 %; Neutrophils # (A) 3.3 k/uL (1.3-7.7); Neutrophils % (A) 84 %; Platelet Count 179 k/uL (150-450); RBC 3.83 m/uL (3.80-5.40); RDW 14.7 % (11.5-15.5)
[2018-06-10 07:30] LABS: INR 1.8 (<1.2); Prothrombin Time 17.4 sec (9.0-12.0)
[2018-06-10] MEDS ORDERED: CARVEDILOL 3.125 MG TAB PO SCH (07:30)
[2018-06-10 07:43] LABS: Potassium 3.6 mmol/L (3.5-5.1)
[2018-06-10] MEDS: SPIRONOLACTONE 25 MG TAB PO SCH (07:46)
[2018-06-10] MEDS: ISOSORBIDE MONONITRATE ER 30 MG TAB.ER.24H PO SCH (07:46)
[2018-06-10] MEDS: CARVEDILOL 12.5 MG TAB PO SCH ×2 (07:46→16:07)
[2018-06-10] MEDS: PANTOPRAZOLE 40 MG TABLET PO SCH (07:46)
[2018-06-10 08:56] LABS: T4, Free (Free Thyroxine) 1.67 ng/dL (0.78-2.19)
[2018-06-10] MEDS ORDERED: LISINOPRIL 10 MG TAB PO SCH (09:00)
[2018-06-10] MEDS: FUROSEMIDE 10 MG/ML 4 ML VIAL IV SCH ×2 (09:50→16:07)
--- NOTE | 2018-06-10 10:16 | P.CRDCN ---
History of Present Illness Consult date: 06/10/18 Consult reason: congestive heart failure History of present illness: This is an 87-year-old female who follows with Dr. Rao in the office. She has a known history of hypertension, hyperlipidemia, coronary artery disease with prior RCA stenting, chronic persistent atrial fibrillation, on Coumadin for anticoagulation. Patient relates that she has had problems with lower extremity edema ever since she underwent right knee surgery at [facility] in September of 2017. She states that she developed a subsequent infec tion, and has back to the hospital to have the knee drained and after her knee was drained, she developed a fairly sudden onset of shortness of breath. patient has had several admissions for acute on chronic diastolic heart failure. in December 2017, patient underwent tilt table test that showed no evidence of neurocardiogenic syncope. Patient complains of a cough is nonproductive since Monday along with chest pain with chest congestion that seemed to be getting worse. She states she's been taking Robitussin and inhalers but didn't get any better. She states she lost 10 pounds since September and has chronic pedal edema. She does not have home oxygen. She denies any sick contacts. She denies missing any of her medications and denies increased salt intake. She uses one pillow to sleep at night. She came into [facility] emergency center for evaluation. Her blood pressure was 190/83 she's been afebrile, heart rate in the 90s, EKG A. fib and controlled rate. Chest x-ray showed mild heart failure worse than last exam. Pulse ox is 94% on 3 L. INR 1.8, hemoglobin 1 0.6, blood sugar 179, white count 4.0, BUN 32 and creatinine 1.46, potassium 3.6. Pro-BMP initially 2915 repeat this morning was 5740. Influenza testing negative. Patient was started on IV Lasix at 20 mg every 6 hours and resumed on her home medications. Echocardiogram last done in November revealed EF of 50- 55% with mild aortic regurgitation, moderate mitral regurgitation, mild tricuspid regurgitation, moderate pulmonary hypertension. Review Of Systems: Constitutional: No fever, no chills, no night sweats. reports weight loss. No weakness, fatigue or lethargy. No daytime sleepiness. EENT: No headache. No blurred vision or double vision, no loss of vision. reports hard of Hearing, no ringing in the ears, no dizziness. No nasal drainage or congestion. No epistaxis. No sore throat. Lungs: reports shortness of breath, reports cough, no sputum production. No wheezing. Cardiovascular: reports chest pain,reports lower extremity edema. No palpitations. No paroxysmal nocturnal dyspnea. No orthopnea. No lightheadedness or dizziness. No syncopal episodes. Abdominal: No abdominal pain. No nausea, vomiting. No diarrhea. No constipation. No bloody or tarry stools.. No loss of appetite. Genitourinary: No dysuria, increased frequency, urgency. No urinary retention. Musculoskeletal: No myalgias. No muscle weakness, no gait dysfunction, no fr equent falls. No back pain. No neck pain. Integumentary: No wounds, no lesions. No rash or pruritus. No unusual bruising. No change in hair or nails. Neurologic: No aphasia. No facial droop. No change in mentation. No head injury. No headache. No paralysis. No paresthesia. Psychiatric: No depression. No anxiety. No mood swings. Endocrine: No abnormal blood sugars. reports weight change. No excessive sweating or thirst. No cold intolerance. Physical exam: Gen: This is an 87-year-old female. She is sitting on the edge of the bed and appears to be comfortable. Frequent cough noted. HEENT: Head is atraumatic, normocephalic. Pupils equal, round. Sclerae is anicteric. oral mucous membranes are slightly dry. NECK: Supple. No JVD. No lymphadenopathy. No thyromegaly. LUNGS: diminished breath sounds to the bases with scattered rhonchi. No intercostal retractions.no accessory muscle usage. HEART: irregular rate and rhythm with systolic murmur at the base. ABDOMEN: Soft. Bowel sounds are present. No masses. No tenderness. EXTREMITIES: 1+ pedal edema. No calf tenderness.dorsalis pedis +2 bilaterally. NEUROLOGICAL: Patient is awake, alert and oriented x3. Cranial nerves 2 through 12 are grossly intact. Assessment: Acute on chronic systolic and diastolic heart failure Chest pain Chronic atrial fibrillation Hypertension Hyperlipidemia Coronary artery disease with prior RCA stenting Valvular heart disease with mild aortic regurgitation, moderate mitral regurgitation, mild tricuspid regurgitation Moderate pulmonary hypertension Plan: Lasix will be increased to 40 mg IV every 8 hours. Obtain repeat troponin. Continue Coreg 12.5 mg twice daily, Imdur 30 mg daily, lisinopril 10 mg daily, pravastatin 40 mg at bedtime and spironolactone 25 mg daily. Resume Coumadin to maintain INR of 2-2.5. Repeat basic metabolic panel in the morning. Consult Dr. Angel as patient has seen Dr. Jackson in the past admissions regarding pulmonary evaluation. I&O and daily weights. Nurse practitioner note has been reviewed, I agree with documented findings and plan of care. Patient was seen and examined. Past Medical History Past Medical History: Atrial Fibrillation, Coronary Artery Disease (CAD), Heart Failure, GERD/Reflux, Hyperlipidemia, Hypertension, Pneumonia, Thyroid Disorder Additional Past Medical History / Comment(s): SEE DR JAMES Case, "weak kidneys", takes xanax to help her sleep, glaucoma fco eyes History of Any Multi-Drug Resistant Organisms: None Reported Past Surgical History: Cholecystectomy, Heart Catheterization With Stent, Hysterectomy, Orthopedic Surgery, Tonsillectomy Additional Past Surgical History / Comment(s): right knee replacement, carpal tunnel release, "thyroidectomy", fco feet -heel spurs, cataracts-lens implants. Past Anesthesia/Blood Transfusion Reactions: No Reported Reaction Date of Last Stent Placement:: 2013 Past Psychological History: No Psychological Hx Reported Additional Psychological History / Comment(s): pt's daughter abimbola lives with pt. in past pt [facility]. goes to pt. has walker/cane Smoking Status: Former smoker Past Alcohol Use History: None Reported Additional Past Alcohol Use History / Comment(s): started smoking at age 20(1950) and quit 1987.smoked less than a pack per day Past Drug Use History: None Reported - Past Family History Daughter(s) Additional Family Medical History / Comment(s): short term memory loss Father Additional Family Medical History / Comment(s): denies family history of cancer or DM in her mother Medications and Allergies Home Medications Medication Instructions Recorded Confirmed Type ALPRAZolam [Xanax] 0.5 mg PO HS 12/03/17 06/09/18 History Carvedilol [Coreg] 3.125 mg PO BID 12/03/17 06/09/18 History Ergocalciferol (Vitamin D2) 50,000 unit PO SA 12/03/17 06/09/18 History [Vitamin D2] Isosorbide Mononitrate ER [Imdur] 30 mg PO DAILY 12/03/17 06/09/18 History Latanoprost [Xalatan 0.005%] 1 drop BOTH EYES HS 12/03/17 06/09/18 History Levothyroxine Sodium 112 mcg PO DAILY 12/03/17 06/09/18 History Pravastatin Sodium [Pravachol] 40 mg PO HS 12/03/17 06/09/18 History Albuterol Inhaler [Ventolin Hfa 1 - 2 puff INHALATION RT-Q6H PRN 12/06/17 06/09/18 Rx Inhaler] #1 inhaler Furosemide [Lasix] 40 mg PO BID@0900,1600 #60 tab 12/25/17 06/09/18 Rx Lisinopril [Zestril] 10 mg PO DAILY #30 tab 12/25/17 06/09/18 Rx Spironolactone [Aldactone] 25 mg PO DAILY #30 tab 12/25/17 06/09/18 Rx Warfarin [Coumadin] 2.5 mg PO HS #30 tab 12/25/17 06/09/18 Rx Acetaminophen with Codeine 1 tab PO Q6H PRN 06/09/18 06/09/18 History [Tylenol w/codeine #3] Ipratropium-Albuterol Nebulize 3 ml INHALATION RT-Q4H PRN 06/09/18 06/09/18 History [Duoneb 0.5 mg-3 mg/3 ml Soln] Nitroglycerin Sl Tabs [Nitrostat] 0.4 mg SUBLINGUAL Q5M PRN 06/09/18 06/09/18 History Pantoprazole [Protonix] 40 mg PO DAILY 06/09/18 06/09/18 History Allergies Allergy/AdvReac Type Severity Reaction Status Date / Time brimonidine [From Simbrinza] Allergy Unknown Verified 06/09/18 19:47 brinzolamide [From Simbrinza] Allergy Unknown Verified 06/09/18 19:47 Physical Exam Vitals: Vital Signs Temp Pulse Pulse Resp BP BP Pulse Ox 06/10/18 07:00 98.0 F 90 16 178/67 94 L 03/17/19 06:14 92 06/10/18 06:05 88 06/10/18 00:05 92 06/10/18 00:00 95 18 06/09/18 23:52 92 06/09/18 23:35 98.3 F 81 18 159/66 95 06/09/18 22:15 95 18 06/09/18 21:30 98.3 F 95 18 183/70 97 06/09/18 20:30 106 H 17 141/75 98 06/09/18 19:21 87 06/09/18 19:14 97 06/09/18 18:22 98.7 F 71 18 190/83 95 Intake and Output 06/09/18 06/10/18 06/10/18 22:59 06:59 14:59 Intake Total 50 Balance 50 Intake: Oral 50 Other: Voiding Method Bedside Commode Toilet # Voids 1 3 # Bowel Movements 1 2 Weight 73.4 kg Results 06/10/18 06:47 06/10/18 06:47 Cardiac Enzymes 06/09/18 06/09/18 Range/Units 18:26 18:26 AST 22 (14-36) U/L Troponin I <0.012 (0.000-0.034) ng/mL Coagulation 06/09/18 06/10/18 Range/Units 18:26 06:47 PT 16.0 H 17.4 H (9.0-12.0) sec APTT 25.4 (22.0-30.0) sec CBC 06/09/18 06/10/18 Range/Units 18:26 06:47 WBC 6.1 4.0 (3.8-10.6) k/uL RBC 4.00 3.83 (3.80-5.40) m/uL Hgb 11.1 L 10.6 L (11.4-16.0) gm/dL Hct 34.9 33.5 L (34.0-46.0) % Plt Count 175 179 (150-450) k/uL Comprehensive Metabolic Panel 06/09/18 06/10/18 Range/Units 18:26 06:47 Sodium 138 138 (137-145) mmol/L Potassium 3.6 3.6 (3.5-5.1) mmol/L Chloride 99 99 (98-107) mmol/L Carbon Dioxide 29 29 (22-30) mmol/L BUN 32 H 32 H (7-17) mg/dL Creatinine 1.54 H 1.46 H (0.52-1.04) mg/dL Glucose 117 H 132 H (74-99) mg/dL Calcium 9.0 9.0 (8.4-10.2) mg/dL AST 22 (14-36) U/L ALT 31 (9-52) U/L Alkaline Phosphatase 110 (38-126) U/L Total Protein 7.2 (6.3-8.2) g/dL Albumin 4.0 (3.5-5.0) g/dL Current Medications Generic Name Dose Route Start Last Admin Trade Name Freq PRN Reason Stop Dose Admin Acetaminophen 650 mg 06/09/18 22:28 Tylenol Tab PO Q6HR PRN Fever and/ or Pain Albuterol/Ipratropium 3 ml 06/09/18 21:34 06/10/18 06:04 Duoneb 0.5 Mg-3 Mg/3 Ml Soln INHALATION 3 ml RT-Q4H PRN Administration Shortness Of Breath Alprazolam 0.5 mg 06/09/18 21:15 06/09/18 22:24 Xanax PO 0.5 mg HS LEONARDO Administration Carvedilol 12.5 mg 06/09/18 21:45 06/10/18 07:46 Coreg PO 12.5 mg BID-W/MEALS LEONARDO Administration Ergocalciferol 50,000 unit 06/16/18 09:00 Vitamin D2 PO SA [facility] Furosemide 20 mg 06/10/18 00:00 06/10/18 05:45 Lasix IV 20 mg Q6HR LEONARDO Administration Isosorbide Mononitrate 30 mg 06/10/18 09:00 06/10/18 07:46 Imdur PO 30 mg DAILY LEONARDO Administration Latanoprost 1 drops 06/10/18 21:00 Xalatan 0.005% BOTH EYES HS [facility] Levothyroxine Sodium 112 mcg 06/10/18 06:30 06/10/18 05:45 Synthroid PO 112 mcg DAILY@0630 LEONARDO Administration Lisinopril 10 mg 06/10/18 09:00 06/10/18 07:46 Zestril PO 10 mg DAILY LEONARDO Administration Miscellaneous Information 0 each 06/09/18 21:51 Coumadin Per Pharmacy MISCELLANE DIRECTED PRN Per Protocol Pantoprazole Sodium 40 mg 06/10/18 07:30 06/10/18 07:46 Protonix PO 40 mg DAILY@0730 LEONARDO Administration Pravastatin Sodium 40 mg 06/10/18 21:00 Pravachol PO [facility] Spironolactone 25 mg 06/10/18 09:00 06/10/18 07:46 Aldactone PO 25 mg DAILY LEONARDO Administration Intake and Output 06/09/18 06/10/18 06/10/18 22:59 06:59 14:59 Intake Total 50 Balance 50 Intake: Oral 50 Other: Voiding Method Bedside Commode Toilet # Voids 1 3 # Bowel Movements 1 2 Weight 73.4 kg 06/10/18 06:47 06/10/18 06:47
[2018-06-10 13:30] VITALS: BMI 31.1
--- NOTE | 2018-06-10 16:43 | P.PN ---
Subjective Progress Note Date: 06/10/18 (Dr. Gold attending) Principal diagnosis: #1 acute congestive heart failure on the top of chronic diastolic impairment with bilateral peripheral edema 3+ on admission. #2 cough has been chronic with the chest x-ray indicating pulmonary congestion, I believe the cough could be secondary to lisinopril as adverse effect and we will be stopped lisinopril today. #3 tracheobronchitis and will plan for starting Augmentin twice a day ordered. #4 bilateral varicose veins, start wrapping both legs with Teja bandage, patient stated that she could not have the stocking on her legs and could not remove it. #5 coronary artery disease atherosclerotic heart disease. #6 hypertension cont rolled. #7 atrial fibrillation with the currently controlled ventricular response and the anticoagulant warfarin has been gradually improving from 1.6- 1.8. This is a progress note date of service is 06/10/2018. Patient seen and evaluated and discussed with her the plan. Chief complaining of cough resistant hacking in nature no significant phlegm, initially chest x-ray showed pulmonary congestion only. On the physical exam Vital sign temperature 97.9, pulse rate is 80 atrial fibrillation expiratory rate 18/m nonlabored. Blood pressure 122/71 with the underlying oxygen saturation on 3 L 98%. Her laboratory indicating that: Negative influenza A and B. She had TSH 0.172 and free T4 1 0.67 could be due to her current illness. White count is 4, hemoglobin 10.6 hematocrit 33.5 with the underlying anemia. Her lymphocyte is 0.4. Pro time is 17.4 and INR 1.8 wheezes start improvement. Her sodium 138 potassium 3.6 chloride 99 and anion gap is 10 BUN of 32 and creatinine 1.46 which is improved from yesterday 1.45, calcium is 9 magnesium is 2 and troponin the second one was 0 less than 0.012 however her NT pro B-type natriuretic peptide increased to 5740. With these findings cardiology did see the patient and change the Lasix to 40 mg IV every 8 hours. Patient currently taken levothyroxine sodium 112 and we will be decreasing it to 100 g daily with the low TSH to be checked in the future for for further adjustment. And, currently she is on carvedilol 12.5 mg twice a day as well. On exam: HEENT was negative, neck was supple no JVD no thyromegaly no lymphadenopathy trachea midline. Chest increased anteroposterior diameter with mild kyphosis and underlying scattered wheezing bilateral however no dullness on percussion. Heart: Irregular irregularities with atrial fibrillation with controlled ventricular response no appreciated gallops. Abdomen soft positive bowel sounds no organ enlargement protuberant. Extremities: She had bilateral pitting edema has been chronic with the possibility of lymphedema as well. Neurologically: She is able to ambulate with a cane no lateralizing sign. Patient seen by the rn perioperative who indicate that she had echocardiogram in November revealed ejection fraction of 50-55 with mild aortic regurgitation and moderate mitral regurgitation and mild tricuspid regurgitation with moderate pulmonary hypertension. She is on anticoagulation with the Coumadin and no further adjustment. Except for the adjustment of the medication. Assessment: Acute congestive heart failure on the of chronic associated with diastolic dysfunction with the previous echo indicating her systolic function 55%. Coronary artery disease with prior right coronary artery stenting, valvular heart disease with the underlying pulmonary hypertension and mild aortic regurg mitral regurg and tricuspid regurgitation. Persistent cough, with the probability Teja inhibitor adverse effect with the hacking cough secondary to lisinopril, will be stopped stopped at this time. Edema of the lower extremities currently on Lasix. Could not exclude the truck KVO bronchitis however white count is normal and we'll obtain sputum for culture and sensitivity. Plan: #1 continue the Lasix IV. Cardiology. #2 start Augmentin 500 mg/125 mg twice a day with the probability of tracheobronchitis #3. Lisinopril Teja inhibitor. #4 start inhalation therapy schedule as well as Pulmicort twice a day. Dr. Gold will see the patient tomorrow. Objective - Vital Signs Vital signs: Vital Signs Temp 97.9 F 06/10/18 14:58 Pulse 80 06/10/18 14:58 Resp 18 06/10/18 14:58 BP 122/71 06/10/18 14:58 Pulse Ox 98 06/10/18 14:58 Intake & Output 06/09/18 06/10/18 06/10/18 18:59 06:59 18:59 Intake Total 50 320 Balance 50 320 Weight 68.039 kg 73.4 kg 72.2 kg Intake: Oral 50 320 Other: Voiding Method Bedside Commode Toilet # Voids 3 # Bowel Movements 2 - Labs CBC & Chem 7: 06/10/18 06:47 06/10/18 06:47 Labs: Abnormal Lab Results - Last 24 Hours (Table) 06/09/18 06/09/18 06/09/18 Range/Units 18:26 18:26 18:26 Hgb 11.1 L (11.4-16.0) gm/dL Hct (34.0-46.0) % Lymphocytes # 0.9 L (1.0-4.8) k/uL PT 16.0 H (9.0-12.0) sec INR 1.6 H (<1.2) BUN 32 H (7-17) mg/dL Creatinine 1.54 H (0.52-1.04) mg/dL Glucose 117 H (74-99) mg/dL TSH (0.465-4.680) mIU/L 06/10/18 06/10/18 06/10/18 Range/Units 06:47 06:47 06:47 Hgb 10.6 L (11.4-16.0) gm/dL Hct 33.5 L (34.0-46.0) % Lymphocytes # 0.4 L (1.0-4.8) k/uL PT 17.4 H (9.0-12.0) sec INR 1.8 H (<1.2) BUN 32 H (7-17) mg/dL Creatinine 1.46 H (0.52-1.04) mg/dL Glucose 132 H (74-99) mg/dL TSH 0.172 L (0.465-4.680) mIU/L
[2018-06-10] MEDS ORDERED: WARFARIN 3 MG TAB PO ONE (18:00)
[2018-06-10] MEDS: AMOXIC-POT CLAV 500-125 MG 1 EACH TAB PO SCH (20:05)
[2018-06-10] MEDS: PRAVASTATIN SODIUM 40 MG TAB PO SCH (20:05)
[2018-06-10] MEDS: ALPRAZolam 0.5 MG TAB PO SCH (20:05)
[2018-06-10] MEDS: LATANOPROST 0.005% OPHTH DROPS 2.5 ML BTL BOTH EYES SCH (20:06)
[2018-06-10] MEDS ORDERED: ASPIRIN 325 MG TAB PO SCH (20:35)
[2018-06-10] MEDS ORDERED: WARFARIN 2.5 MG TAB PO SCH (21:00)
[2018-06-10] MEDS: IPRATROPIUM-ALBUTEROL 3 ML NEB INHALATION SCH (21:14)
[2018-06-10] MEDS: BUDESONIDE 0.5 MG/2 ML NEBU INHALATION SCH (21:14)
[2018-06-11] MEDS: IPRATROPIUM-ALBUTEROL 3 ML NEB INHALATION PRN ×2 (00:16→03:57)
[2018-06-11] MEDS: FUROSEMIDE 10 MG/ML 4 ML VIAL IV SCH ×4 (01:11→23:59)
[2018-06-11] MEDS ORDERED: BENZOCAINE/MENTHOL LOZENG 1 EACH LOZENGE MUCOUS MEM PRN (02:12)
[2018-06-11] MEDS: LEVOTHYROXINE 112 MCG TAB PO SCH (05:13)
[2018-06-11] MEDS: SPIRONOLACTONE 25 MG TAB PO SCH (08:00)
[2018-06-11] MEDS: CARVEDILOL 12.5 MG TAB PO SCH ×2 (08:00→17:51)
[2018-06-11] MEDS: AMOXIC-POT CLAV 500-125 MG 1 EACH TAB PO SCH ×2 (08:00→19:53)
[2018-06-11] MEDS: ISOSORBIDE MONONITRATE ER 30 MG TAB.ER.24H PO SCH (08:00)
[2018-06-11] MEDS: PANTOPRAZOLE 40 MG TABLET PO SCH (08:00)
[2018-06-11 08:07] LABS: INR 3.9 (<1.2); Prothrombin Time 37.4 sec (9.0-12.0)
--- NOTE | 2018-06-11 08:34 | PN ---
PROGRESS NOTE Mrs. Simon is an 87-year-old female who presented with symptoms of progressive dyspnea and cough as well as worsening peripheral edema. She continues to be quite dyspneic this morning and coughing. According to her, she could not sleep during the night. Her cough is nonproductive. She has a known history of chronic persistent atrial fibrillation, anticoagulated, history of coronary artery disease, hypertension, and hyperlipidemia. Her left ventricular systolic function in the past has been preserved. She continues to be on Lasix 40 mg IV q.8 hours, Coreg 12.5 mg twice a day, isosorbide mononitrate 30 mg daily, spironolactone 25 mg daily, in addition to Coumadin. PHYSICAL EXAMINATION: Blood pressure 122/60 with a heart rate in 90s. Lungs with a few crackles at the bases. HEART: Irregular, regular, S1, S2. No S3 with systolic murmur, no diastolic murmur, no rub. ABDOMEN: Soft, nontender. EXTREMITIES: NAWAF wrapping in place, +1 to 2 edema bilaterally. LAB DATA: Revealed BUN and creatinine 32 and 1.46 yesterday. Her INR today is 3.9. IMPRESSION: 1. Symptoms of progressive dyspnea with cough and evidence of congestive heart failure on the basis of diastolic dysfunction. 2. History of chronic persistent atrial fibrillation, anticoagulated. 3. History of hypertension. 4. Hyperlipidemia. 5. History of coronary artery disease. RECOMMENDATION: From the cardiac standpoint, will continue anticoagulation. Follow her renal function closely and depending on her progress, further recommendation will be made. She will be evaluated by the Pulmonary Service for further input. MMODL / IJN: [id number] /
[2018-06-11] MEDS: BUDESONIDE 0.5 MG/2 ML NEBU INHALATION SCH ×2 (08:36→21:12)
[2018-06-11] MEDS: IPRATROPIUM-ALBUTEROL 3 ML NEB INHALATION SCH ×4 (08:36→21:12)
[2018-06-11 08:46] LABS: Calcium 8.9 mg/dL (8.4-10.2)
[2018-06-11] MEDS ORDERED: WARFARIN 2 MG TAB PO SCH (18:00)
--- NOTE | 2018-06-11 19:47 | P.CNPUL ---
History of Present Illness Consult date: 06/11/18 Reason for consult: dyspnea History of present illness: This is an 87-year-old female patient was coming into the hospital because of worsening shortness of breath, cough, chest congestion and increased lower extremity edema. Despite her 10 pounds weight loss, the patient reports worsening in lower extremity edema. She has chronic leg edema and she claims that she has gotten worse. She has multiple medical problems and comorbidities patient is known to have coronary artery disease and previous stenting to the RCA. She has also chronic atrial fibrillation and she is maintained on anticoagulant showed warfarin. She has hypertension and hyperlipidemia in addition to chronic lower extremity edema. She has a congested cough unable to bring up much sputum. No fever or chills. Altered mentation. No pleurisy. The creatinine was at 1.46. BNP level was 2915, and subsequently came up to 5740. Influenza screen was negative. The patient is currently on IV Lasix. Her most recent echo from November 2017 showed an ejection fraction of 55% with mild aortic regurgitation, moderate MR, mild TR degree of pulmonary hypertension. Her chest x-ray was consistent with CHF. Review of Systems Constitutional: No fever, no chills, no night sweats. reports weight loss. No weakness, fatigue or lethargy. No daytime sleepiness. EENT: No headache. No blurred vision or double vision, no loss of vision. reports hard of Hearing, no ringing in the ears, no dizziness. No nasal draina ge or congestion. No epistaxis. No sore throat. Lungs: reports shortness of breath, reports cough, no sputum production. No wheezing. Cardiovascular: reports chest pain,reports lower extremity edema. No palpitations. No paroxysmal nocturnal dyspnea. No orthopnea. No lightheadedness or dizziness. No syncopal episodes. Abdominal: No abdominal pain. No nausea, vomiting. No diarrhea. No con stipation. No bloody or tarry stools.. No loss of appetite. Genitourinary: No dysuria, increased frequency, urgency. No urinary retention. Musculoskeletal: No myalgias. No muscle weakness, no gait dysfunction, no frequent falls. No back pain. No neck pain. Integumentary: No wounds, no lesions. No rash or pruritus. No unusual bruising. No change in hair or nails. Neurologic: No aphasia. No facial droop. No change in mentation. No head injury. No headache. No paralysis. No paresthesia. Psychiatric: No depression. No anxiety. No mood swings. Endocrine: No abnormal blood sugars. reports weight change. No excessive sweating or thirst. No cold intolerance. Past Medical History Past Medical History: Atrial Fibrillation, Coronary Artery Disease (CAD), Heart Failure, GERD/Reflux, Hyperlipidemia, Hypertension, Thyroid Disorder Additional Past Medical History / Comment(s): Coronary artery disease, chronic atrial fibrillation, hypertension, hyperlipidemia, chronic stage II kidney disease with a baseline creatinine of around 1.5, hypothyroidism, glaucoma History of Any Multi-Drug Resistant Organisms: None Reported Past Surgical History: Cholecystectomy, Heart Catheterization With Stent, Hysterectomy, Orthopedic Surgery, Tonsillectomy Additional Past Surgical History / Comment(s): right knee replacement, carpal tunnel release, "thyroidectomy", fco feet -heel spurs, cataracts-lens implants. Past Anesthesia/Blood Transfusion Reactions: No Reported Reaction Date of Last Stent Placement:: 2013 Past Psychological History: No Psychological Hx Reported Additional Psychological History / Comment(s): pt's daughter abimbola lives with pt. in past pt has had [facility]. goes to pt. has walker/cane Smoking Status: Former smoker Past Alcohol Use History: None Reported Additional Past Alcohol Use History / Comment(s): started smoking at age 20(1950) and quit 1987.smoked less than a pack per day Past Drug Use History: None Reported - Past Family History Daughter(s) Additional Family Medical History / Comment(s): short term memory loss Father Additional Family Medical History / Comment(s): denies family history of cancer or DM in her mother Medications and Allergies Home Medications Medication Instructions Recorded Confirmed Type ALPRAZolam [Xanax] 0.5 mg PO 12/03/17 06/09/18 History Carvedilol [Coreg] 3.125 mg PO BID 12/03/17 06/09/18 History Ergocalciferol (Vitamin D2) 50,000 unit PO 12/03/17 06/09/18 History [Vitamin D2] Isosorbide Mononitrate ER [Imdur] 30 mg PO DAILY 12/03/17 06/09/18 History Latanoprost [Xalatan 0.005%] 1 drop BOTH EYES 12/03/17 06/09/18 History Levothyroxine Sodium 112 mcg PO DAILY 12/03/17 06/09/18 History Pravastatin Sodium [Pravachol] 40 mg PO HS 12/03/17 06/09/18 History Albuterol Inhaler [Ventolin Hfa 1 - 2 puff INHALATION RT-Q6H PRN 12/06/17 06/09/18 Rx Inhaler] #1 inhaler Furosemide [Lasix] 40 mg PO BID@0900,1600 #60 tab 12/25/17 06/09/18 Rx Lisinopril [Zestril] 10 mg PO DAILY #30 tab 12/25/17 06/09/18 Rx Spironolactone [Aldactone] 25 mg PO DAILY #30 tab 12/25/17 06/09/18 Rx Warfarin [Coumadin] 2.5 mg PO HS #30 tab 12/25/17 06/09/18 Rx Acetaminophen with Codeine 1 tab PO Q6H PRN 06/09/18 06/09/18 History [Tylenol w/codeine #3] Ipratropium-Albuterol Nebulize 3 ml INHALATION RT-Q4H PRN 06/09/18 06/09/18 History [Duoneb 0.5 mg-3 mg/3 ml Soln] Nitroglycerin Sl Tabs [Nitrostat] 0.4 mg SUBLINGUAL Q5M PRN 06/09/18 06/09/18 History Pantoprazole [Protonix] 40 mg PO DAILY 06/09/18 06/09/18 History Allergies Allergy/AdvReac Type Severity Reaction Status Date / Time brimonidine [From Simbrinza] Allergy Unknown Verified 06/09/18 19:47 brinzolamide [From Simbrinza] Allergy Unknown Verified 06/09/18 19:47 Physical Exam Vitals: Vital Signs Temp Pulse Pulse Pulse Resp BP Pulse Ox 06/11/18 16:44 96 06/11/18 16:36 96 06/11/18 15:00 98.4 F 69 12 114/109 95 06/11/18 11:45 96 06/11/18 08:49 96 06/11/18 08:36 92 93 L 06/11/18 07:00 98.4 F 61 16 154/70 95 06/11/18 04:12 96 06/11/18 03:57 92 03/18/19 01:19 98.8 F 92 95 20 122/65 06/11/18 00:26 99 06/11/18 00:16 96 06/11/18 00:14 98.5 F 94 16 126/63 93 L 06/10/18 21:28 99 06/10/18 21:16 96 Intake and Output 06/11/18 06/11/18 06/11/18 06:59 14:59 22:59 Intake Total 120 Balance 120 Intake: Oral 120 Other: # Voids 2 Weight 73.1 kg Gen: This is an 87-year-old female. She is sitting on the edge of the bed and appears to be comfortable. Frequent cough noted. She is not using excessive muscle breathing. Head exam was generally normal. There was no scleral icterus or corneal arcus. Mucous membranes were moist. NECK: Supple. No JVD. No lymphadenopathy. No thyromegaly. LUNGS: diminished breath sounds to the bases with scattered rhonchi. No intercostal retractions.no accessory muscle usage. HEART: irregular rate and rhythm with systolic murmur at the base. ABDOMEN: Soft. Bowel sounds are present. No masses. No tenderness. No ascites. No direct tenderness. No rebound tenderness. No guarding. EXTREMITIES: 1+ pedal edema. No calf tenderness.dorsalis pedis +2 bilaterally. NEUROLOGICAL: Patient is awake, alert and oriented x3. Cranial nerves 2 through 12 are grossly intact. Psychiatric evaluation is within normal limits. No anxiety. No depression. Examination of the skin revealed no evidence of significant rashes, suspicious appearing nevi or other concerning lesions. Results - Laboratory Findings CBC and BMP: 06/10/18 06:47 06/11/18 07:11 PT/INR, D-dimer PT 37.4 sec (9.0-12.0) H 06/11/18 07:11 INR 3.9 (<1.2) H 06/11/18 07:11 Abnormal lab findings: Abnormal Labs 06/09/18 06/09/18 06/09/18 18:26 18:26 18:26 Hgb 11.1 L Hct Lymphocytes # 0.9 L PT 16.0 H INR 1.6 H Chloride BUN 32 H Creatinine 1.54 H Glucose 117 H TSH 06/10/18 06/10/18 06/10/18 06:47 06:47 06:47 Hgb 10.6 L Hct 33.5 L Lymphocytes # 0.4 L PT 17.4 H INR 1.8 H Chloride BUN 32 H Creatinine 1.46 H Glucose 132 H TSH 0.172 L 06/11/18 06/11/18 07:11 07:11 Hgb Hct Lymphocytes # PT 37.4 H INR 3.9 H Chloride 97 L BUN 39 H Creatinine 1.50 H Glucose 101 H TSH - Diagnostic Findings Chest x-ray: image reviewed Assessment and Plan Plan: Assessment 1 shortness of breath secondary to exacerbation of CHF. Pneumonia is doubtful. There may be a component of bronchitis as the patient is coughing and she seems to be quite congested this point in time 2 coronary artery disease with previous stenting of the RCA 3 chronic atrial fibrillation maintained on articulation with warfarin 4 hypertension 5 chronic kidney disease, stage II 6 valvular heart disease with mild AR, moderate MR, mild TR and moderate degree of pulmonary hypertension 7 hyperlipidemia 8 glucoma 9 hypothyroidism 10 long-term coagulation with warfarin with slightly supratherapeutic INR at time of admission 11 impaired performance and functional status secondary to above-mentioned comorbidities. Plan This patient is on DuoNeb nebulized treatments around the clock. This will be continued. Empiric antibiotic coverage with Augmentin and this will be continued. Encourage Lasix 40 mg every 8 hours and monitor renal function and fluid balance. Monitor lower extremity edema. Will need a follow-up chest x- ray with next 24-48 hours. INR is supratherapeutic on today's evaluation at 3.9. Coumadin will be placed on hold. We'll continue to follow.
[2018-06-11] MEDS: PRAVASTATIN SODIUM 40 MG TAB PO SCH (19:52)
[2018-06-11] MEDS: LATANOPROST 0.005% OPHTH DROPS 2.5 ML BTL BOTH EYES SCH (19:53)
[2018-06-11] MEDS: ALPRAZolam 0.5 MG TAB PO SCH (21:57)
[2018-06-11] MEDS: methylPREDNISolone SOD SUCCI 40 MG/ML 1 ML VIAL IV SCH (21:58)
--- NOTE | 2018-06-11 22:16 | PN ---
PROGRESS NOTE ATTENDING PHYSICIAN: Dr. Marlene Gold. CHIEF COMPLAINT: Shortness of breath and cough. HISTORY OF PRESENT ILLNESS: This is an elderly female, 87 years of age, complaining that she cannot breathe well because she has this congested cough and she cannot bring the phlegm up. The patient has no fever or chills. Admitted to the hospital by Dr. Bueno for me. Also seen by Cardiology. The patient has CHF. However, the patient's symptoms seem to be more bronchial. She was also placed on antibiotic and updrafts. She has no fever or chills. Suspect the patient has a vital tracheobronchitis, possible bacterial tracheobronchitis. Sputum still pending. No fever or chills. REVIEW OF SYSTEMS: NEURO: Denies any headaches, dizziness. PSYCH: Chronic anxiety. CARDIAC: Denies chest pain, angina, palpitations. RESPIRATORY: Present complaining of cough, shortness of breath. No hemoptysis. GI: No nausea, vomiting. Appetite decreased. No abdominal pain. No diarrhea. Has constipation. : No symptoms of dysuria or hematuria. EXTREMITIES: Has some chronic pain in the knee joint. CONSTITUTIONAL: No fever, chills. PHYSICAL EXAMINATION: Elderly female at present in no distress. Vital signs reveals temperature 98.4, pulse 61, respirations 16, blood pressure 154/70, pulse ox 95 percent on room air. HEENT: Normocephalic. NECK: Supple. No JVD. Chest examination: Bilateral scattered rhonchi. No wheezing appreciated. Generalized decreased air flow. CARDIAC: Distant heart sounds S1, S2 with no gallops. Irregularly, irregular rhythm. Systolic murmur 2 x 6 left sternal border. ABDOMEN: Soft. Bowel sounds active. Extremities reveal trace edema. Right knee post surgery with decreased range of motion. NEUROLOGIC: Awake, alert, oriented with well-coordinated movements. LABORATORY ASSESSMENT: INR 3.9, BUN 39, creatinine 1.5. ASSESSMENT: 1. Tracheobronchitis. 2. Acute exacerbation of chronic congestive cardiac failure secondary to systolic and diastolic dysfunction. 3. Chronic atrial fibrillation. 4. Chronic kidney disease stage 3. 5. Anticoagulated status. PLAN: Continue present medical regimen. Patient's condition discussed with the patient. Prognosis guarded at present. Continue Lasix. Will give the patient a couple doses of IV steroids. Prognosis remains guarded. MMODL / IJN: [id number] /
[2018-06-11] MEDS: guaiFENesin-DM 100-10MG/5ML 10 ML CUP PO PRN (22:42)
[2018-06-12] MEDS: LEVOTHYROXINE 112 MCG TAB PO SCH (05:29)
[2018-06-12] MEDS: BUDESONIDE 0.5 MG/2 ML NEBU INHALATION SCH ×2 (07:31→19:18)
[2018-06-12] MEDS: IPRATROPIUM-ALBUTEROL 3 ML NEB INHALATION SCH ×4 (07:31→19:18)
[2018-06-12 08:12] LABS: Calcium 8.7 mg/dL (8.4-10.2); INR 3.6 (<1.2); Prothrombin Time 34.3 sec (9.0-12.0)
[2018-06-12 08:14] LABS: Potassium 4.5 mmol/L (3.5-5.1)
[2018-06-12] MEDS: methylPREDNISolone SOD SUCCI 40 MG/ML 1 ML VIAL IV SCH ×2 (08:50→20:49)
[2018-06-12] MEDS: AMOXIC-POT CLAV 500-125 MG 1 EACH TAB PO SCH ×2 (08:50→20:45)
[2018-06-12] MEDS: FUROSEMIDE 10 MG/ML 4 ML VIAL IV SCH ×2 (08:50→20:54)
[2018-06-12] MEDS: CARVEDILOL 12.5 MG TAB PO SCH ×2 (08:50→17:33)
[2018-06-12] MEDS: ISOSORBIDE MONONITRATE ER 30 MG TAB.ER.24H PO SCH (08:51)
[2018-06-12] MEDS: PANTOPRAZOLE 40 MG TABLET PO SCH (08:51)
[2018-06-12] MEDS: SPIRONOLACTONE 25 MG TAB PO SCH (08:51)
[2018-06-12] MEDS ORDERED: IPRATROPIUM-ALBUTEROL 3 ML NEB INHALATION PRN (10:48)
--- NOTE | 2018-06-12 15:59 | P.PN ---
Subjective Progress Note Date: 06/12/18 Principal diagnosis: Shortness of breath, secondary to exacerbation of CHF, and tracheobronchitis This is an 87-year-old female patient was coming into the hospital because of worsening shortness of breath, cough, chest congestion and increased lower extremity edema. Despite her 10 pounds weight loss, the patient reports worsening in lower extremity edema. She has chronic leg edema and she claims that she has gotten worse. She has multiple medical problems and comorbidities patient is known to have coronary artery disease and previous stenting to the RCA. She has also chronic atrial fibrillation and she is maintained on anticoagulant showed warfarin. She has hypertension and hyperlipidemia in addition to chronic lower extremity edema. She has a congested cough unable to bring up much sputum. No fever or chills. Altered mentation. No pleurisy. The creatinine was at 1.46. BNP level was 2915, and subsequently came up to 5740. Influenza screen was negative. The patient is currently on IV Lasix. Her most recent echo from November 2017 showed an ejection fraction of 55% with mild aortic regurgitation, moderate MR, mild TR degree of pulmonary hypertensio n. Her chest x-ray was consistent with CHF. On 06/12/2018 patient seen in follow-up on medical surgical floor. She is sitting up on the edge of the bed, she still has quite congested cough, lung so unds reveal diffuse crackles and rhonchi, patient is unable to bring up any sputum, she is on IV Lasix, 40 mg every 8 hours, her weight is trending down, patient is down 0.7 kg in the last 24 hours. Today's INR is 3.6, patient remains in A. fib with a controlled rate, serum sodium is 139, potassium is 4.5, chloride is 98, CO2 33, BUN is 46 and creatinine is 1.61. Influenza screen was negative. Enteric antibiotics in the form of Augmentin, patient is on Augmentin, IV Solu-Medrol 40 mg every 12 hours, nebulized bronchodilators. Objective - Vital Signs Vital signs: Vital Signs Temp 98.7 F 06/12/18 15:00 Pulse 85 06/12/18 15:47 Resp 14 06/12/18 15:00 BP 98/48 06/12/18 15:00 Pulse Ox 94 L 06/12/18 15:38 Intake & Output 0306/12/18 06/12/18 18:59 06:59 18:59 Intake Total 120 Balance 120 Weight 72.3 kg Intake: Oral 120 Other: Voiding Method Toilet # Voids 1 - Exam GENERAL EXAM: Alert, pleasant, 87-year-old female, comfortable in no apparent distress. HEAD: Normocephalic/atraumatic. EYES: Normal reaction of pupils, equal size. Conjunctiva pink, sclera white. NOSE: Clear with pink turbinates. THROAT: No erythema or exudates. NECK: No masses, no JVD, no thyroid enlargement, no adenopathy. CHEST: No chest wall deformity. Symmetrical expansion. LUNGS: Equal air entry with diffuse crackles and rhonchi bilaterally patient has a frequent congested nonproductive cough CVS: Regular rate and rhythm, normal S1 and S2, no gallops, no murmurs, no rubs ABDOMEN: Soft, nontender. No hepatosplenomegaly, normal bowel sounds, no guarding or rigidity. EXTREMITIES: No clubbing, no edema, no cyanosis, 2+ pulses and upper and lower extremities. MUSCULOSKELETAL: Muscle strength and tone normal. SPINE: No scoliosis or deformity SKIN: No rashes CENTRAL NERVOUS SYSTEM: Alert and oriented -3. No focal deficits, tone is normal in all 4 extremities. PSYCHIATRIC: Alert and oriented -3. Appropriate affect. Intact judgment and insight. - Labs CBC & Chem 7: 06/10/18 06:47 06/12/18 07:00 Labs: Abnormal Lab Results - Last 24 Hours (Table) 06/12/18 06/12/18 Range/Units 07:00 07:00 PT 34.3 H (9.0-12.0) sec INR 3.6 H (<1.2) Carbon Dioxide 33 H (22-30) mmol/L BUN 46 H (7-17) mg/dL Creatinine 1.61 H (0.52-1.04) mg/dL Glucose 127 H (74-99) mg/dL Microbiology - Last 24 Hours (Table) 06/09/18 18:50 Blood Culture - Preliminary Blood No Growth after 48 hours Assessment and Plan Plan: Assessment: 1 shortness of breath secondary to exacerbation of CHF. Pneumonia is doubtful. There may be a component of bronchitis as the patient is coughing and she seems to be quite congested this point in time 2 coronary artery disease with previous stenting of the RCA 3 chronic atrial fibrillation maintained on articulation with warfarin 4 hypertension 5 chronic kidney disease, stage II 6 valvular heart disease with mild AR, moderate MR, mild TR and moderate degree of pulmonary hypertension 7 hyperlipidemia 8 glucoma 9 hypothyroidism 10 long-term coagulation with warfarin with slightly supratherapeutic INR at ti me of admission 11 impaired performance and functional status secondary to above-mentioned comorbidities. Plan: We will continue with oral antibiotics, IV Solu-Medrol, will add Mucinex, continue with nebulized bronchodilators. Continue IV diuresis. We'll monitor renal function and fluid balance as well as electrolytes. We will repeat a chest x-ray in the morning. I performed a history & physical examination of the patient and discussed their management with my nurse practitioner, Magalys Cruz. I reviewed the nurse practitioner's note and agree with the documented findings and plan of care. Lung sounds are positive for diffuse rhonchi and rales. The findings and the impression was discussed with the patient. I attest to the documentation by the nurse practitioner. Time with Patient: Less than 30
[2018-06-12] MEDS: LATANOPROST 0.005% OPHTH DROPS 2.5 ML BTL BOTH EYES SCH (20:38)
[2018-06-12] MEDS: guaiFENesin 600 MG TABLET.ER PO SCH (20:44)
[2018-06-12] MEDS: PRAVASTATIN SODIUM 40 MG TAB PO SCH (20:47)
[2018-06-12] MEDS: ALPRAZolam 0.5 MG TAB PO SCH (22:30)
[2018-06-12] MEDS: guaiFENesin-DM 100-10MG/5ML 10 ML CUP PO PRN (23:43)
--- NOTE | 2018-06-12 23:44 | PN ---
PROGRESS NOTE CHIEF COMPLAINT: Re-evaluation. HISTORY OF PRESENT ILLNESS: This 87-year-old female was admitted to the hospital because of shortness of breath. The patient has been diagnosed as congestive cardiac failure; however, patient's predominant symptoms are respiratory, indicative of tracheobronchitis, with probably respiratory viral infection. The patient was placed on some steroids yesterday because of significant cough and congestion. She is feeling better today. She has been diuresed and the renal status is stable. She has history of underlying chronic kidney disease, stage III. She has chronic atrial fibrillation. REVIEW OF SYSTEMS: NEURO: Denies any headaches, dizziness. PSYCH: No anxiety. CARDIAC: No chest pain, angina, palpitations. RESPIRATORY: Denies shortness of breath. Does have cough. No hemoptysis. GI: No nausea, vomiting, abdominal pain, diarrhea. : No symptoms of dysuria or hematuria. EXTREMITIES: Pain in the right knee. CONSTITUTIONAL: No fever or chills. PHYSICAL EXAMINATION: Pleasant female in no distress. Vital signs reveal temperature 97.5, pulse 82, respirations 12, blood pressure 141/62, pulse ox 95% on room air. HEENT: Normocephalic. NECK: No JVD. CHEST: Clear to auscultation with occasional rhonchi. CARDIAC: Distant heart sounds S1, S2 with no gallop. Systolic murmur 2/6, left sternal border. Irregularly irregular rhythm. ABDOMEN: Soft. Extremities reveal trace edema. Neurologically awake, alert, oriented with well-coordinated movements. LABORATORY ASSESSMENT: INR of 3.6. Coumadin is on hold. CO2 33, BUN 46, creatinine 1.61, glucose 127. ASSESSMENT: 1. Tracheobronchitis. 2. Congestive cardiac failure secondary to diastolic dysfunction, compensated. 3. Chronic atrial fibrillation. 4. Chronic kidney disease, stage III. PLAN: Patient is stable. Continue present medical regimen. Patient's condition was discussed with the patient. Prognosis guarded. MMODL / IJN: [id number] /
[2018-06-13] MEDS: LEVOTHYROXINE 112 MCG TAB PO SCH (06:04)
[2018-06-13] MEDS: FUROSEMIDE 10 MG/ML 4 ML VIAL IV SCH ×2 (07:54→22:14)
[2018-06-13] MEDS: methylPREDNISolone SOD SUCCI 40 MG/ML 1 ML VIAL IV SCH (07:54)
[2018-06-13] MEDS: CARVEDILOL 12.5 MG TAB PO SCH ×2 (07:55→17:51)
[2018-06-13] MEDS: AMOXIC-POT CLAV 500-125 MG 1 EACH TAB PO SCH ×2 (07:55→22:12)
[2018-06-13] MEDS: PANTOPRAZOLE 40 MG TABLET PO SCH (07:55)
[2018-06-13] MEDS: SPIRONOLACTONE 25 MG TAB PO SCH (07:55)
[2018-06-13] MEDS: guaiFENesin 600 MG TABLET.ER PO SCH ×2 (07:55→22:11)
[2018-06-13] MEDS: ISOSORBIDE MONONITRATE ER 30 MG TAB.ER.24H PO SCH (07:55)
[2018-06-13 08:47] LABS: INR 3.7 (<1.2)
[2018-06-13] MEDS ORDERED: FUROSEMIDE 10 MG/ML 4 ML VIAL IV SCH (09:00)
--- NOTE | 2018-06-13 09:16 | XR ---
EXAMINATION TYPE: XR chest 2V DATE OF EXAM: 06/13/2018 COMPARISON: Prior chest x-ray 06/09/2018 HISTORY: Shortness of breath TECHNIQUE: Frontal and lateral views of the chest are obtained. FINDINGS: There are cardiac leads. Heart remains enlarged. Persistent blunting the costophrenic angl es is noted. No evident pneumothorax. Prominent lung lines suggest COPD. The aorta is dense. There ar e coronary artery calcifications present. Bone mineralization is reduced. Interstitium is mildly prom inent. Patchy basilar density noted in the right lower lung. IMPRESSION: Findings are similar to prior exam. Correlate to exclude congestive heart failure in a p atient with pre-existing COPD. Possible minimal effusions.
[2018-06-13] MEDS: IPRATROPIUM-ALBUTEROL 3 ML NEB INHALATION PRN ×4 (09:23→21:38)
[2018-06-13] MEDS: BUDESONIDE 0.5 MG/2 ML NEBU INHALATION SCH ×2 (09:23→21:38)
--- NOTE | 2018-06-13 13:03 | P.PN ---
Subjective Progress Note Date: 06/13/18 Principal diagnosis: Shortness of breath, secondary to exacerbation of CHF, and tracheobronchitis This is an 87-year-old female patient was coming into the hospital because of worsening shortness of breath, cough, chest congestion and increased lower extremity edema. Despite her 10 pounds weight loss, the patient reports worsening in lower extremity edema. She has chronic leg edema and she claims that she has gotten worse. She has multiple medical problems and comorbidities patient is known to have coronary artery disease and previous stenting to the RCA. She has also chronic atrial fibrillation and she is maintained on anticoagulant showed warfarin. She has hypertension and hyperlipidemia in addition to chronic lower extremity edema. She has a congested cough unable to bring up much sputum. No fever or chills. Altered mentation. No pleurisy. The creatinine was at 1.46. BNP level was 2915, and subsequently came up to 5740. Influenza screen was negative. The patient is currently on IV Lasix. Her most recent echo from November 2017 showed an ejection fraction of 55% with mild aortic regurgitation, moderate MR, mild TR degree of pulmonary hypertensio n. Her chest x-ray was consistent with CHF. On 06/12/2018 patient seen in follow-up on medical surgical floor. She is sitting up on the edge of the bed, she still has quite congested cough, lung so unds reveal diffuse crackles and rhonchi, patient is unable to bring up any sputum, she is on IV Lasix, 40 mg every 8 hours, her weight is trending down, patient is down 0.7 kg in the last 24 hours. Today's INR is 3.6, patient remains in A. fib with a controlled rate, serum sodium is 139, potassium is 4.5, chloride is 98, CO2 33, BUN is 46 and creatinine is 1.61. Influenza screen was negative. Enteric antibiotics in the form of Augmentin, patient is on Augmentin, IV Solu-Medrol 40 mg every 12 hours, nebulized bronchodilators. On 06/13/2018 patient seen in follow-up on medical surgical floor. She is resting comfortably in bed, sleepy today, but no acute distress, lung sounds reveal some scattered crackles, still has the congestive cough. Remains on diuretics, her vitals are stable, currently on 2 L per nasal cannula pulse ox is 95%, afebrile, weight is down by 0.8 kg in the last 24 hours, chest x-ray was reviewed Dr. Jackson, and shows persistent blunting of the costophrenic angles related to small pleural effusions. No acute infiltrates. Patient is on empiric antibiotics in the form of Augmentin, she is on IV steroids, sputum blood culture showed no growth. Objective - Vital Signs Vital signs: Vital Signs Temp 98 F 06/13/18 07:00 Pulse 70 06/13/18 09:36 Resp 12 06/13/18 07:00 BP 120/71 06/13/18 07:00 Pulse Ox 95 06/13/18 07:00 Intake & Output 06/12/18 06/13/18 06/13/18 18:59 06:59 18:59 Weight 72.3 kg - Exam GENERAL EXAM: Alert, pleasant, 87-year-old female, comfortable in no apparent distress. HEAD: Normocephalic/atraumatic. EYES: Normal reaction of pupils, equal size. Conjunctiva pink, sclera white. NOSE: Clear with pink turbinates. THROAT: No erythema or exudates. NECK: No masses, no JVD, no thyroid enlargement, no adenopathy. CHEST: No chest wall deformity. Symmetrical expansion. LUNGS: Equal air entry with diffuse crackles and rhonchi bilaterally patient has a frequent congested nonproductive cough CVS: Regular rate and rhythm, normal S1 and S2, no gallops, no murmurs, no rubs ABDOMEN: Soft, nontender. No hepatosplenomegaly, normal bowel sounds, no guarding or rigidity. EXTREMITIES: No clubbing, no edema, no cyanosis, 2+ pulses and upper and lower extremities. MUSCULOSKELETAL: Muscle strength and tone normal. SPINE: No scoliosis or deformity SKIN: No rashes CENTRAL NERVOUS SYSTEM: Alert and oriented -3. No focal deficits, tone is normal in all 4 extremities. PSYCHIATRIC: Alert and oriented -3. Appropriate affect. Intact judgment and insight. - Labs CBC & Chem 7: 06/10/18 06:47 06/12/18 07:00 Labs: Abnormal Lab Results - Last 24 Hours (Table) 06/13/18 Range/Units 07:35 PT 36.0 H (9.0-12.0) sec INR 3.7 H (<1.2) Microbiology - Last 24 Hours (Table) 06/12/18 19:50 Gram Stain - Preliminary Sputum Sputum Culture - Preliminary 06/09/18 18:50 Blood Culture - Preliminary Blood No Growth after 72 hours Assessment and Plan Plan: Assessment: 1 shortness of breath secondary to exacerbation of CHF. Pneumonia is doubtful. There may be a component of bronchitis as the patient is coughing and she seems to be quite congested this point in time 2 coronary artery disease with previous stenting of the RCA 3 chronic atrial fibrillation maintained on articulation with warfarin 4 hypertension 5 chronic kidney disease, stage II 6 valvular heart disease with mild AR, moderate MR, mild TR and moderate degree of pulmonary hypertension 7 hyperlipidemia 8 glucoma 9 hypothyroidism 10 long-term coagulation with warfarin with slightly supratherapeutic INR at time of admission 11 impaired performance and functional status secondary to above-mentioned comorbidities. Plan: Continue current medical treatment, empiric antibiotics, IV steroids, and IV diuretics, today's chest x-ray has been reviewed with Dr. Jackson, and shows minimal pleural effusions, no acute infiltrates. Continue breathing treatments. I performed a history & physical examination of the patient and discussed their management with my nurse practitioner, Magalys Cruz. I reviewed the nurse practitioner's note and agree with the documented findings and plan of care. Lung sounds are positive for diffuse rhonchi and rales. The findings and the impression was discussed with the patient. I attest to the documentation by the nurse practitioner. Time with Patient: Less than 30
--- NOTE | 2018-06-13 13:09 | CONS ---
CONSULTATION DATE OF SERVICE: 06/12/2018 Mrs. Simon is an 87-year-old female who is admitted with respiratory distress. Patient has been treated for acute on chronic diastolic heart failure as well as bronchitis. She is feeling well. She still has been having some cough without any significant expectoration. Denies any fever or chills or chest pain. The patient's blood pressure was 141/62 mmHg. Heart rate is 80. First and second heart sounds are normal. Lungs examination revealed a few scattered rales at the bases and wheezes noted. Abdomen is negative. Chest x-ray is suggestive of congestive cardiac failure. Patient's BNP is increased to 5740. Previous echocardiogram reveals a normal left ventricular systolic function. FINAL IMPRESSION: This patient has acute on chronic diastolic heart failure and possible underlying tracheobronchitis. RECOMMENDATIONS: We will increase the dose of Lasix to 40 mg IV q.12 hourly and follow the chest x-ray. MMODL / IJN: [id number] /
[2018-06-13] MEDS ORDERED: PROMETHAZ-COD 6.25-10 MG/5 ML 5 ML CUP PO PRN (15:00)
[2018-06-13] MEDS: methylPREDNISolone SOD SUCCI 125 MG/2 ML VIAL IV SCH ×2 (17:50→23:29)
[2018-06-13] MEDS: PRAVASTATIN SODIUM 40 MG TAB PO SCH (22:11)
[2018-06-13] MEDS: ALPRAZolam 0.5 MG TAB PO SCH (22:11)
[2018-06-13] MEDS: LATANOPROST 0.005% OPHTH DROPS 2.5 ML BTL BOTH EYES SCH (22:12)
[2018-06-13] MEDS ORDERED: WITCH HAZEL 1 EACH MED..PAD TOPICAL PRN (22:28)
--- NOTE | 2018-06-13 23:03 | PN ---
PROGRESS NOTE CHIEF COMPLAINT: Re-evaluation. HISTORY OF PRESENT ILLNESS: This is an 87-year-old female who was admitted to the hospital with shortness of breath and cough. The patient has had no fever. Initial impression by the admitting physician and consulting physician was CHF. However, the patient's symptoms are more suggestive of tracheobronchitis. She is actually feeling better. Her breathing has improved. She was given some steroids. The patient apparently again has been ordered to have a chest x-ray by the pulmonary service and nurse practitioner, with no changes. Will continue present medical regimen. ASSESSMENT: 1. Tracheobronchitis. 2. Chronic obstructive pulmonary disease. 3. Congestive heart failure secondary to chronic diastolic dysfunction. 4. Chronic kidney disease, stage III. 5. Chronic atrial fibrillation. PLAN: Continue present medical regimen. Patient's condition is improving. Again, reviewed changes prior to today's chest x-ray which suggest possibility of CHF changes. Clinically the patient has improved significantly. We will continue present medical regimen as mentioned above. Prognosis guarded. MMODL / IJN: [id number] /
[2018-06-14] MEDS: LEVOTHYROXINE 112 MCG TAB PO SCH (05:17)
[2018-06-14 08:35] LABS: INR 3.1 (<1.2); Prothrombin Time 30.2 sec (9.0-12.0)
[2018-06-14] MEDS: FUROSEMIDE 10 MG/ML 4 ML VIAL IV SCH (08:39)
[2018-06-14] MEDS: predniSONE 20 MG TAB PO SCH (08:40)
[2018-06-14] MEDS: ISOSORBIDE MONONITRATE ER 30 MG TAB.ER.24H PO SCH (08:40)
[2018-06-14] MEDS: AMOXIC-POT CLAV 500-125 MG 1 EACH TAB PO SCH ×2 (08:40→21:26)
[2018-06-14] MEDS: CARVEDILOL 12.5 MG TAB PO SCH ×2 (08:40→18:18)
[2018-06-14] MEDS: PANTOPRAZOLE 40 MG TABLET PO SCH (08:40)
[2018-06-14] MEDS: guaiFENesin 600 MG TABLET.ER PO SCH ×2 (08:40→21:26)
[2018-06-14] MEDS: SPIRONOLACTONE 25 MG TAB PO SCH (08:40)
[2018-06-14] MEDS: BUDESONIDE 0.5 MG/2 ML NEBU INHALATION SCH ×2 (09:06→21:47)
[2018-06-14] MEDS: IPRATROPIUM-ALBUTEROL 3 ML NEB INHALATION PRN ×4 (09:06→21:47)
--- NOTE | 2018-06-14 16:49 | P.PN ---
Subjective Progress Note Date: 06/14/18 Principal diagnosis: Acute exacerbation of congestive heart failure. This is an 87-year-old female patient was coming into the hospital because of worsening shortness of breath, cough, chest congestion and increased lower extremity edema. Despite her 10 pounds weight loss, the patient reports worsening in lower extremity edema. She has chronic leg edema and she claims that she has gotten worse. She has multiple medical problems and comorbidities patient is known to have coronary artery disease and previous stenting to the RCA. She has also chronic atrial fibrillation and she is maintained on anticoagulant showed warfarin. She has hypertension and hyperlipidemia in a ddition to chronic lower extremity edema. She has a congested cough unable to bring up much sputum. No fever or chills. Altered mentation. No pleurisy. The creatinine was at 1.46. BNP level was 2915, and subsequently came up to 5740. Influenza screen was negative. The patient is currently on IV Lasix. Her most recent echo from November 2017 showed an ejection fraction of 55% with mild aortic regurgitation, moderate MR, mild TR degree of pulmonary hypertension. Her chest x-ray was consistent with CHF. On 06/12/2018 patient seen in follow-up on medical surgical floor. She is sitting up on the edge of the bed, she still has quite congested cough, lung sounds reveal diffuse crackles and rhonchi, patient is unable to bring up any sputum, she is on IV Lasix, 40 mg every 8 hours, her weight is trending down, patient is down 0.7 kg in the last 24 hours. Today's INR is 3.6, patient remains in A. fib with a controlled rate, serum sodium is 139, potassium is 4.5, chloride is 98, CO2 33, BUN is 46 and creatinine is 1.61. Influenza screen was negative. Enteric antibiotics in the form of Augmentin, patient is on Augmentin, IV Solu-Medrol 40 mg every 12 hours, nebulized bronchodilators. On 06/13/2018 patient seen in follow-up on medical surgical floor. She is resting comfortably in bed, sleepy today, but no acute distress, lung sounds reveal some scattered crackles, still has the congestive cough. Remains on diuretics, her vitals are stable, currently on 2 L per nasal cannula pulse ox is 95%, afebrile, weight is down by 0.8 kg in the last 24 hours, chest x-ray was reviewed Dr. Jackson, and shows persistent blunting of the costophrenic angles related to small pleural effusions. No acute infiltrates. Patient is on empiric antibiotics in the form of Augmentin, she is on IV steroids, sputum blood culture showed no growth. The patient was seen today 06/14/2018 in follow-up on the medical surgical floor. She is currently sitting up in bed talking on the phone. Awake and alert in no acute distress. Maintaining good O2 saturations in the 90s on 2 L/m per nasal cannula. He denies any worsening shortness of breath, cough or congestion. Still not quite back to her baseline. Sputum culture positive for Gretchen otherwise no growth. INR 3.1. Weight 72 kg. Objective - Vital Signs Vital signs: Vital Signs Temp 97.7 F 06/14/18 07:00 Pulse 64 06/14/18 12:39 Resp 20 06/14/18 08:00 BP 135/60 06/14/18 07:00 Pulse Ox 95 06/14/18 07:00 Intake & Output 06/13/18 06/14/18 06/14/18 18:59 06:59 18:59 Intake Total 120 360 Balance 120 360 Weight 72 kg Intake: Oral 120 360 Other: # Voids 2 - Exam GENERAL EXAM: Alert, pleasant, 87-year-old female, comfortable in no apparent distress. On 2 L. HEAD: Normocephalic/atraumatic. EYES: Normal reaction of pupils, equal size. Conjunctiva pink, sclera white. NOSE: Clear with pink turbinates. THROAT: No erythema or exudates. NECK: No masses, no JVD, no thyroid enlargement, no adenopathy. CHEST: No chest wall deformity. Symmetrical expansion. LUNGS: Equal air entry with diffuse crackles and rhonchi bilaterally patient has a frequent congested nonproductive cough CVS: Regular rate and rhythm, normal S1 and S2, no gallops, no murmurs, no rubs ABDOMEN: Soft, nontender. No hepatosplenomegaly, normal bowel sounds, no guarding or rigidity. EXTREMITIES: No clubbing, no edema, no cyanosis, 2+ pulses and upper and lower extremities. MUSCULOSKELETAL: Muscle strength and tone normal. SPINE: No scoliosis or deformity SKIN: No rashes CENTRAL NERVOUS SYSTEM: Alert and oriented -3. No focal deficits, tone is normal in all 4 extremities. PSYCHIATRIC: Alert and oriented -3. Appropriate affect. Intact judgment and insight. - Labs CBC & Chem 7: 06/10/18 06:47 06/12/18 07:00 Labs: Abnormal Lab Results - Last 24 Hours (Table) 06/14/18 Range/Units 07:14 PT 30.2 H (9.0-12.0) sec INR 3.1 H (<1.2) Microbiology - Last 24 Hours (Table) 06/12/18 19:50 Gram Stain - Final Sputum Sputum Culture - Final Gretchen albicans 06/09/18 18:50 Blood Culture - Preliminary Blood No Growth after 96 hours Assessment and Plan Assessment: Assessment: 1 shortness of breath secondary to exacerbation of CHF. Pneumonia is doubtful. There may be a component of bronchitis as the patient is coughing and she seems to be quite congested this point in time 2 coronary artery disease with previous stenting of the RCA 3 chronic atrial fibrillation maintained on articulation with warfarin 4 hypertension 5 chronic kidney disease, stage II 6 valvular heart disease with mild AR, moderate MR, mild TR and moderate degree of pulmonary hypertension 7 hyperlipidemia 8 glucoma 9 hypothyroidism 10 long-term coagulation with warfarin with slightly supratherapeutic INR at time of admission 11 impaired performance and functional status secondary to above-mentioned comorbidities. Plan: The patient was seen and evaluated by Dr. Jackson. She is improved today as compared to yesterday. Still not quite back to her baseline. We'll continue with the current treatment plan. Increase her activity as tolerated. We'll continue to follow make further recommendations based on her clinical status. I, the cosigning physician, performed a history & physical examination of the patient. Lungs sounds with few scattered rhonchi, end expiratory wheeze Maintaining good O2 saturations in the 90s on 2 L/m per nasal cannula. I discussed the assessment and plan of care with my nurse practitioner, Tanja Roche. I attest to the above note as dictated by her.
[2018-06-14] MEDS: ALPRAZolam 0.5 MG TAB PO SCH (21:27)
[2018-06-14] MEDS: LATANOPROST 0.005% OPHTH DROPS 2.5 ML BTL BOTH EYES SCH (21:27)
[2018-06-14] MEDS: PRAVASTATIN SODIUM 40 MG TAB PO SCH (21:27)
--- NOTE | 2018-06-14 23:43 | PN ---
PROGRESS NOTE CHIEF COMPLAINT: Re-evaluation. HISTORY OF PRESENT ILLNESS: This 87-year-old female was admitted to the hospital with shortness of breath and cough. The patient has more of a tracheobronchitis. She also has underlying chronic congestive cardiac failure with mild exacerbation. The patient is feeling better. She was on IV steroids which has been decreased to oral steroids now. The patient is on IV diuretics, which we will decrease down to 40 mg once a day. She is feeling much improved. She wants to go home. REVIEW OF SYSTEMS: NEURO: Denies any headaches, dizziness. PSYCH: No anxiety. CARDIAC: No chest pain, angina, palpitations. RESPIRATORY: No shortness of breath. Does have some cough. No hemoptysis. Patient is still using oxygen. GI: No nausea, vomiting, abdominal pain. Has some diarrhea. The patient has been on Augmentin. Stool has been sent for C difficile. : No symptoms of dysuria or hematuria. EXTREMITIES: No pain, edema. CONSTITUTIONAL: No fever, chills. PHYSICAL EXAMINATION: Pleasant female in no distress. Vital signs reveal temperature 97.7, pulse 61, respiration 18, blood pressure 135/60, pulse ox 95% on 2 L. HEENT: Normocephalic. NECK: No JVD. CHEST: Clear to auscultation with mild generalized decreased air flow. CARDIAC: Distant heart sounds S1, S2 with no gallops. Irregularly irregular rhythm. Systolic murmur 2/6, left sternal border. ABDOMEN: Soft. Bowel sounds present. EXTREMITIES: One plus edema. Neurologically awake, alert, oriented, well-coordinated movements. Patient able to ambulate with a cane. LABORATORY ASSESSMENT: INR 3.1. C difficile negative. ASSESSMENT: 1. Acute respiratory failure secondary to congestive heart failure and tracheobronchitis. 2. Chronic obstructive pulmonary disease. 3. Chronic congestive cardiac failure secondary to diastolic dysfunction. 4. Chronic atrial fibrillation. 5. Anticoagulated status. 6. Chronic kidney disease, stage III. PLAN: The patient is stable. Continue present medical regimen. Patient's condition was discussed with the patient. Prognosis guarded. Probable discharge home tomorrow. MMODL / IJN: [id number] /
[2018-06-15] MEDS: LEVOTHYROXINE 112 MCG TAB PO SCH (06:01)
[2018-06-15 07:42] VITALS: BP 140/69; RESP 18; TEMP 98.6
[2018-06-15 07:52] LABS: INR 2.6 (<1.2); Prothrombin Time 25.6 sec (9.0-12.0)
[2018-06-15] MEDS: AMOXIC-POT CLAV 500-125 MG 1 EACH TAB PO SCH (07:56)
[2018-06-15] MEDS: ISOSORBIDE MONONITRATE ER 30 MG TAB.ER.24H PO SCH (07:56)
[2018-06-15] MEDS: SPIRONOLACTONE 25 MG TAB PO SCH (07:56)
[2018-06-15] MEDS: predniSONE 20 MG TAB PO SCH (07:56)
[2018-06-15] MEDS: guaiFENesin 600 MG TABLET.ER PO SCH (07:56)
[2018-06-15] MEDS: PANTOPRAZOLE 40 MG TABLET PO SCH (07:56)
[2018-06-15] MEDS: FUROSEMIDE 10 MG/ML 4 ML VIAL IV SCH (07:57)
[2018-06-15] MEDS: CARVEDILOL 12.5 MG TAB PO SCH (08:00)
[2018-06-15] MEDS: BUDESONIDE 0.5 MG/2 ML NEBU INHALATION SCH (08:51)
[2018-06-15] MEDS: IPRATROPIUM-ALBUTEROL 3 ML NEB INHALATION PRN (08:52)
[2018-06-15 08:54] VITALS: PULSE 64
--- NOTE | 2018-06-15 17:13 | P.PN ---
Subjective Progress Note Date: 06/15/18 Principal diagnosis: Acute exacerbation of congestive heart failure. This is an 87-year-old female patient was coming into the hospital because of worsening shortness of breath, cough, chest congestion and increased lower extremity edema. Despite her 10 pounds weight loss, the patient reports worsening in lower extremity edema. She has chronic leg edema and she claims that she has gotten worse. She has multiple medical problems and comorbidities patient is known to have coronary artery disease and previous stenting to the RCA. She has also chronic atrial fibrillation and she is maintained on anticoagulant showed warfarin. She has hypertension and hyperlipidemia in a ddition to chronic lower extremity edema. She has a congested cough unable to bring up much sputum. No fever or chills. Altered mentation. No pleurisy. The creatinine was at 1.46. BNP level was 2915, and subsequently came up to 5740. Influenza screen was negative. The patient is currently on IV Lasix. Her most recent echo from November 2017 showed an ejection fraction of 55% with mild aortic regurgitation, moderate MR, mild TR degree of pulmonary hypertension. Her chest x-ray was consistent with CHF. On 06/12/2018 patient seen in follow-up on medical surgical floor. She is sitting up on the edge of the bed, she still has quite congested cough, lung sounds reveal diffuse crackles and rhonchi, patient is unable to bring up any sputum, she is on IV Lasix, 40 mg every 8 hours, her weight is trending down, patient is down 0.7 kg in the last 24 hours. Today's INR is 3.6, patient remains in A. fib with a controlled rate, serum sodium is 139, potassium is 4.5, chloride is 98, CO2 33, BUN is 46 and creatinine is 1.61. Influenza screen was negative. Enteric antibiotics in the form of Augmentin, patient is on Augmentin, IV Solu-Medrol 40 mg every 12 hours, nebulized bronchodilators. On 06/13/2018 patient seen in follow-up on medical surgical floor. She is resting comfortably in bed, sleepy today, but no acute distress, lung sounds reveal some scattered crackles, still has the congestive cough. Remains on diuretics, her vitals are stable, currently on 2 L per nasal cannula pulse ox is 95%, afebrile, weight is down by 0.8 kg in the last 24 hours, chest x-ray was reviewed Dr. Jackson, and shows persistent blunting of the costophrenic angles related to small pleural effusions. No acute infiltrates. Patient is on empiric antibiotics in the form of Augmentin, she is on IV steroids, sputum blood culture showed no growth. The patient was seen today 06/14/2018 in follow-up on the medical surgical floor. She is currently sitting up in bed talking on the phone. Awake and alert in no acute distress. Maintaining good O2 saturations in the 90s on 2 L/m per nasal cannula. He denies any worsening shortness of breath, cough or congestion. Still not quite back to her baseline. Sputum culture positive for Gretchen otherwise no growth. INR 3.1. Weight 72 kg. The patient is seen today 06/15/2018 in follow-up on the regular medical floor. She is currently sitting up in bed. Awake and alert in no acute distress. Her breathing is back to her baseline. She is anxious to go home. She is maintaining good O2 saturations in the high 90s on 2 L/m per nasal cannula. She's been afebrile. Hemodynamically stable. Urine culture positive for Gretchen only. INR 2.6. She's been converted to oral Augmentin. Objective - Vital Signs Vital signs: Vital Signs Temp 98.6 F 06/15/18 07:00 Pulse 64 06/15/18 09:07 Resp 18 06/15/18 08:00 BP 140/69 06/15/18 07:00 Pulse Ox 98 06/15/18 07:00 Intake & Output 06/14/18 06/15/18 06/15/18 18:59 06:59 18:59 Intake Total 485 250 400 Balance 485 250 400 Weight 72.8 kg Intake: Oral 485 250 400 Other: Voiding Method Toilet Toilet # Voids 2 - Exam GENERAL EXAM: Alert, pleasant, 87-year-old female, comfortable in no apparent distress. On 2 L. HEAD: Normocephalic/atraumatic. EYES: Normal reaction of pupils, equal size. Conjunctiva pink, sclera white. NOSE: Clear with pink turbinates. THROAT: No erythema or exudates. NECK: No masses, no JVD, no thyroid enlargement, no adenopathy. CHEST: No chest wall deformity. Symmetrical expansion. LUNGS: Equal air entry with scattered rhonchi that clear with cough CVS: Regular rate and rhythm, normal S1 and S2, no gallops, no murmurs, no rubs ABDOMEN: Soft, nontender. No hepatosplenomegaly, normal bowel sounds, no guarding or rigidity. EXTREMITIES: No clubbing, no edema, no cyanosis, 2+ pulses and upper and lower extremities. MUSCULOSKELETAL: Muscle strength and tone normal. SPINE: No scoliosis or deformity SKIN: No rashes CENTRAL NERVOUS SYSTEM: Alert and oriented -3. No focal deficits, tone is normal in all 4 extremities. PSYCHIATRIC: Alert and oriented -3. Appropriate affect. Intact judgment and insight. - Labs CBC & Chem 7: 06/10/18 06:47 06/12/18 07:00 Labs: Abnormal Lab Results - Last 24 Hours (Table) 06/15/18 Range/Units 07:12 PT 25.6 H (9.0-12.0) sec INR 2.6 H (<1.2) Microbiology - Last 24 Hours (Table) 06/09/18 18:50 Blood Culture - Preliminary Blood No Growth after 120 hours Assessment and Plan Assessment: Assessment: 1 shortness of breath secondary to exacerbation of CHF. Pneumonia is doubtful. There may be a component of bronchitis 2 coronary artery disease with previous stenting of the RCA 3 chronic atrial fibrillation maintained on articulation with warfarin 4 hypertension 5 chronic kidney disease, stage II 6 valvular heart disease with mild AR, moderate MR, mild TR and moderate degree of pulmonary hypertension 7 hyperlipidemia 8 glucoma 9 hypothyroidism 10 long-term coagulation with warfarin with slightly supratherapeutic INR at time of admission 11 impaired performance and functional status secondary to above-mentioned comorbidities. Plan: The patient was seen and evaluated by Dr. Jackson. She is cleared for discharge from the pulmonary standpoint. She'll continue course of antibiotics in the form of Augmentin. Continue her home pulmonary medications. She'll be seen in our office in 1-2 weeks' time. She is encouraged to call sooner with any recurrence of symptoms or other questions or concerns. I, the cosigning physician, performed a history & physical examination of the patient. Lungs sounds with few scattered rhonchi. Maintaining good O2 saturations in the 90s on 2 L/m per nasal cannula. I discussed the assessment and plan of care with my nurse practitioner, Tanja Roche. I attest to the above note as dictated by her.
[2018-06-15] MEDS ORDERED: WARFARIN 2 MG TAB PO SCH (18:00)
[2018-06-16] MEDS ORDERED: ERGOCALCIFEROL 50,000 UNIT CAP PO SCH (09:00)
== END 2018-06-15 15:26 | disposition home or self-care (01) | DRG 291 ==
LOC: EC 18:20 → 4SSUR 20:33 → OBSVTOIN 06-10 14:05
PROVIDERS: ADMIT Internal Medicine; ATTEND Internal Medicine
DX: I13.0 Hypertensive heart and chronic kidney disease with heart failure and stage 1 through stage 4 chronic kidney disease, or unspecified chronic kidney disease (principal); I50.33 Acute on chronic diastolic (congestive) heart failure; J96.00 Acute respiratory failure, unspecified whether with hypoxia or hypercapnia; I27.20 Pulmonary hypertension, unspecified; J44.9 Chronic obstructive pulmonary disease, unspecified; I08.3 Combined rheumatic disorders of mitral, aortic and tricuspid valves; N18.3 Chronic kidney disease, stage 3 (moderate); I48.2 Chronic atrial fibrillation; D64.9 Anemia, unspecified; J40 Bronchitis, not specified as acute or chronic; B34.9 Viral infection, unspecified; F41.9 Anxiety disorder, unspecified; I83.93 Asymptomatic varicose veins of bilateral lower extremities; E78.5 Hyperlipidemia, unspecified; I25.10 Atherosclerotic heart disease of native coronary artery without angina pectoris; K21.9 Gastro-esophageal reflux disease without esophagitis; E89.0 Postprocedural hypothyroidism; H40.9 Unspecified glaucoma; T46.4X5A Adverse effect of angiotensin-converting-enzyme inhibitors, initial encounter; E66.9 Obesity, unspecified; Z68.31 Body mass index [BMI] 31.0-31.9, adult; Z79.01 Long term (current) use of anticoagulants; Z79.890 Hormone replacement therapy; Z79.899 Other long term (current) drug therapy; Z71.3 Dietary counseling and surveillance; Z90.49 Acquired absence of other specified parts of digestive tract; Z95.5 Presence of coronary angioplasty implant and graft; Z90.710 Acquired absence of both cervix and uterus; Z96.651 Presence of right artificial knee joint; Z87.891 Personal history of nicotine dependence; Z87.01 Personal history of pneumonia (recurrent); Z98.42 Cataract extraction status, left eye; Z98.41 Cataract extraction status, right eye; Z96.1 Presence of intraocular lens; Z88.8 Allergy status to other drugs, medicaments and biological substances; Z81.8 Family history of other mental and behavioral disorders
CPT/HCPCS: 36415; 71046; 80048; 80053; 83605; 83735; 83880; 84439; 84443; 84484; 85025; 85610; 85730; 87040; 87070; 87205; 87324; 87502; 93005; 94640; 94760; 96374; 99285

== ENCOUNTER → 2018-07-10 | Outpatient (CLI) | payer MEDICARE, BC ==
[2018-07-10 08:50] LABS: HCT 31.4 % (34.0-46.0); HGB 9.9 gm/dL (11.4-16.0); Hypochromasia Slight; MCH 26.9 pg (25.0-35.0); MCHC 31.6 g/dL (31.0-37.0); MCV 85.3 fL (80.0-100.0); Mean Platelet Volume 6.7; Platelet Count 232 k/uL (150-450); RBC 3.69 m/uL (3.80-5.40); RDW 15.8 % (11.5-15.5); WBC 5.7 k/uL (3.8-10.6)
[2018-07-10 16:10] LABS: Anion Gap 7.8 mmol/L (4.00-12.00); Calcium 8.3 mg/dL (8.7-10.3); Carbon Dioxide 31.2 mmol/L (21.6-31.8); LDL Cholesterol,Calculated 82.4 mg/dL (0.0-131.0); Potassium 3.9 mmol/L (3.5-5.5); VLDL Calculation 23.6 mg/dL (5.00-40.00)
== END | disposition home or self-care (01) ==
LOC: LABWHC1 07:55
PROVIDERS: ATTEND Internal Medicine
DX: E78.5 Hyperlipidemia, unspecified (principal); N18.3 Chronic kidney disease, stage 3 (moderate)
CPT/HCPCS: 36415; 80048; 80061; 85027

== ENCOUNTER 2018-08-03 10:35 | Inpatient (IN) | payer MEDICARE, BC ==
[2018-08-03] MEDS ORDERED: FUROSEMIDE 10 MG/ML 4 ML VIAL IV STA (10:56)
[2018-08-03] MEDS ORDERED: IPRATROPIUM-ALBUTEROL 3 ML NEB INHALATION STA (10:56)
--- NOTE | 2018-08-03 11:02 | ED ---
SOB HPI - General Chief Complaint: Shortness of Breath Stated Complaint: SOB/water retention Time Seen by Provider: 08/03/18 10:50 Source: patient, EMS, RN notes reviewed, old records reviewed Mode of arrival: ambulatory Limitations: no limitations - History of Present Illness Initial Comments: This is a 87-year-old female history of atrial fibrillation CHF COPD and renal insufficiency who was recently in the hospital in May of this year with simila r symptoms that she presents with today who does complain of exertional dyspnea orthopnea lower extremity edema. She states she's been having intermittent edema to the right lower extremity since he knee replacement last year she's had over last day or so increasing shortness breath and increasing edema bilaterally. She denies any fevers chills nausea vomiting sweats she did have some left-sided sharp chest pain yesterday which was somewhat brief and has not recurred. She has no other complaints this time she did try albuterol which did not help. MD Complaint: shortness of breath - Related Data Home Medications Medication Instructions Recorded Confirmed ALPRAZolam [Xanax] 0.5 mg PO HS 12/03/17 08/03/18 Ergocalciferol (Vitamin D2) 50,000 unit PO SA 12/03/17 08/03/18 [Vitamin D2] Isosorbide Mononitrate ER [Imdur] 30 mg PO DAILY 12/03/17 08/03/18 Latanoprost [Xalatan 0.005%] 1 drop BOTH EYES HS 12/03/17 08/03/18 Levothyroxine Sodium 112 mcg PO DAILY 12/03/17 08/03/18 Pravastatin Sodium [Pravachol] 40 mg PO HS 12/03/17 08/03/18 Acetaminophen with Codeine 1 tab PO Q6H PRN 06/09/18 08/03/18 [Tylenol w/codeine #3] Nitroglycerin Sl Tabs [Nitrostat] 0.4 mg SUBLINGUAL Q5M PRN 06/09/18 08/03/18 Pantoprazole [Protonix] 40 mg PO DAILY 06/09/18 08/03/18 Cefadroxil [Duricef] 500 mg PO Q12HR 08/03/18 08/03/18 Warfarin Sodium 2 mg PO Q48H 08/03/18 08/03/18 Warfarin Sodium 4 mg PO Q48H 08/03/18 08/03/18 Previous Rx's Medication Instructions Recorded Albuterol Inhaler [Ventolin Hfa 1 - 2 puff INHALATION RT-Q6H PRN 12/06/17 Inhaler] #1 inhaler Furosemide [Lasix] 40 mg PO BID@0900,1600 #60 tab 12/25/17 Lisinopril [Zestril] 10 mg PO DAILY #30 tab 12/25/17 Spironolactone [Aldactone] 25 mg PO DAILY #30 tab 12/25/17 Acetaminophen Tab [Tylenol] 650 mg PO Q6HR PRN tab 06/15/18 Carvedilol [Coreg*] 12.5 mg PO BID-W/MEALS tab 06/15/18 Allergies Allergy/AdvReac Type Severity Reaction Status Date / Time brimonidine [From Simbrinza] Allergy Unknown Verified 08/03/18 10:52 brinzolamide [From Simbrinza] Allergy Unknown Verified 08/03/18 10:52 Review of Systems ROS Statement: Those systems with pertinent positive or pertinent negative responses have been documented in the HPI. ROS Other: All systems not noted in ROS Statement are negative. Past Medical History Past Medical History: Atrial Fibrillation, Coronary Artery Disease (CAD), Heart Failure, GERD/Reflux, Hyperlipidemia, Hypertension, Thyroid Disorder Additional Past Medical History / Comment(s): Coronary artery disease, chronic atrial fibrillation, hypertension, hyperlipidemia, chronic stage II kidney disease with a baseline creatinine of around 1.5, hypothyroidism, glaucoma History of Any Multi-Drug Resistant Organisms: None Reported Past Surgical History: Cholecystectomy, Heart Catheterization With Stent, Hysterectomy, Orthopedic Surgery, Tonsillectomy Additional Past Surgical History / Comment(s): right knee replacement, carpal tunnel release, "thyroidectomy", fco feet -heel spurs, cataracts-lens implants. Past Anesthesia/Blood Transfusion Reactions: No Reported Reaction Date of Last Stent Placement:: 2013 Past Psychological History: No Psychological Hx Reported Smoking Status: Former smoker Past Alcohol Use History: None Reported Past Drug Use History: None Reported - Past Family History Daughter(s) Additional Family Medical History / Comment(s): short term memory loss Father Additional Family Medical History / Comment(s): denies family history of cancer or DM in her mother General Exam - General Exam Comments Initial Comments: This is a well-developed well-nourished awake alert oriented 3 female Limitations: no limitations General appearance: alert, anxious Head exam: Present: atraumatic, normocephalic, normal inspection Eye exam: Present: PERRL, EOMI, other (Bilateral arcus senilis). Absent: scleral icterus, conjunctival injection, periorbital swelling ENT exam: Present: normal exam, mucous membranes moist Neck exam: Present: normal inspection, full ROM, other. Absent: tenderness, meningismus, lymphadenopathy Respiratory exam: Present: rales, decreased breath sounds. Absent: respiratory distress, wheezes, rhonchi, stridor, chest wall tenderness Cardiovascular Exam: Present: regular rate, normal rhythm, normal heart sounds. Absent: systolic murmur, diastolic murmur, rubs, gallop, clicks GI/Abdominal exam: Present: soft, normal bowel sounds. Absent: distended, tenderness, guarding, rebound, rigid Extremities exam: Present: full ROM, normal capillary refill, pedal edema, calf tenderness. Absent: tenderness, joint swelling Back exam: Present: normal inspection Neurological exam: Present: alert, oriented X3, CN II-XII intact Psychiatric exam: Present: normal affect, normal mood Skin exam: Present: warm, dry, intact, normal color. Absent: rash Course Vital Signs 08/03/18 08/03/18 08/03/18 10:38 11:06 11:17 Temperature 97.9 F Pulse Rate 75 76 80 Respiratory 18 Rate Blood Pressure 171/67 O2 Sat by Pulse 95 Oximetry 08/03/18 08/03/18 08/03/18 12:00 12:30 13:00 Temperature Pulse Rate 65 89 78 Respiratory 18 23 22 Rate Blood Pressure 111/77 168/60 151/74 O2 Sat by Pulse 100 99 99 Oximetry 08/03/18 14:00 Temperature Pulse Rate 60 Respiratory 15 Rate Blood Pressure 161/87 O2 Sat by Pulse Oximetry - Reevaluation(s) Reevaluation #1: 08/03/18 16:06 She is feeling somewhat improved after initial treatment. I did discuss findings with patient family thus far. Medical Decision Making - Medical Decision Making Did discuss the findings the patient as well as with Dr. Osorio patient be admitted for IV antibiotics and treatment of CHF. She does have systolic CHF. - Lab Data Result diagrams: 08/03/18 11:30 08/03/18 11:30 Lab Results 08/03/18 08/03/18 08/03/18 Range/Units 11:30 11:30 11:30 WBC 8.2 (3.8-10.6) k/uL RBC 3.83 (3.80-5.40) m/uL Hgb 10.3 L (11.4-16.0) gm/dL Hct 32.5 L (34.0-46.0) % MCV 84.9 (80.0-100.0) fL MCH 26.9 (25.0-35.0) pg MCHC 31.7 (31.0-37.0) g/dL RDW 16.9 H (11.5-15.5) % Plt Count 227 (150-450) k/uL Neutrophils % 67 % Lymphocytes % 24 % Monocytes % 3 % Eosinophils % 2 % Basophils % 0 % Neutrophils # 5.5 (1.3-7.7) k/uL Lymphocytes # 1.9 (1.0-4.8) k/uL Monocytes # 0.3 (0-1.0) k/uL Eosinophils # 0.2 (0-0.7) k/uL Basophils # 0.0 (0-0.2) k/uL Hypochromasia Slight Anisocytosis Slight PT 12.9 H (9.0-12.0) sec INR 1.2 H (<1.2) APTT 23.6 (22.0-30.0) sec D-Dimer 2.01 H (<0.60) mg/L FEU Sodium 140 (137-145) mmol/L Potassium 3.6 (3.5-5.1) mmol/L Chloride 103 (98-107) mmol/L Carbon Dioxide 31 H (22-30) mmol/L Anion Gap 6 mmol/L BUN 28 H (7-17) mg/dL Creatinine 1.43 H (0.52-1.04) mg/dL Est GFR (CKD-EPI)AfAm 38 (>60 ml/min/1.73 sqM) Est GFR (CKD-EPI)NonAf 33 (>60 ml/min/1.73 sqM) Glucose 96 (74-99) mg/dL Calcium 9.0 (8.4-10.2) mg/dL Magnesium 2.0 (1.6-2.3) mg/dL Total Bilirubin 0.7 (0.2-1.3) mg/dL AST 17 (14-36) U/L ALT 17 (9-52) U/L Alkaline Phosphatase 94 (38-126) U/L Creatine Kinase 31 (30-135) U/L Troponin I (0.000-0.034) ng/mL NT-Pro-B Natriuret Pep pg/mL Total Protein 6.4 (6.3-8.2) g/dL Albumin 3.5 (3.5-5.0) g/dL 08/03/18 08/03/18 Range/Units 11:30 11:30 WBC (3.8-10.6) k/uL RBC (3.80-5.40) m/uL Hgb (11.4-16.0) gm/dL Hct (34.0-46.0) % MCV (80.0-100.0) fL MCH (25.0-35.0) pg MCHC (31.0-37.0) g/dL RDW (11.5-15.5) % Plt Count (150-450) k/uL Neutrophils % % Lymphocytes % % Monocytes % % Eosinophils % % Basophils % % Neutrophils # (1.3-7.7) k/uL Lymphocytes # (1.0-4.8) k/uL Monocytes # (0-1.0) k/uL Eosinophils # (0-0.7) k/uL Basophils # (0-0.2) k/uL Hypochromasia Anisocytosis PT (9.0-12.0) sec INR (<1.2) APTT (22.0-30.0) sec D-Dimer (<0.60) mg/L FEU Sodium (137-145) mmol/L Potassium (3.5-5.1) mmol/L Chloride (98-107) mmol/L Carbon Dioxide (22-30) mmol/L Anion Gap mmol/L BUN (7-17) mg/dL Creatinine (0.52-1.04) mg/dL Est GFR (CKD-EPI)AfAm (>60 ml/min/1.73 sqM) Est GFR (CKD-EPI)NonAf (>60 ml/min/1.73 sqM) Glucose (74-99) mg/dL Calcium (8.4-10.2) mg/dL Magnesium (1.6-2.3) mg/dL Total Bilirubin (0.2-1.3) mg/dL AST (14-36) U/L ALT (9-52) U/L Alkaline Phosphatase (38-126) U/L Creatine Kinase (30-135) U/L Troponin I <0.012 (0.000-0.034) ng/mL NT-Pro-B Natriuret Pep 3860 pg/mL Total Protein (6.3-8.2) g/dL Albumin (3.5-5.0) g/dL - EKG Data -: EKG Interpreted by Me (Atrial fibrillation rate of 77 QRS 86 QT since QTC VID/450 with exodeviatio) - Radiology Data Radiology results: report reviewed (I did review the imaging and report evidence of small right effusion. Also evidence of bilateral lower lobe infiltrate likely secondary to congestive failure), image reviewed Critical Care Time Critical Care Time: Yes Critical Care Time: 31 minutes of critical care time which was initial presentation with history physical labs x-rays. Discussed the patient regarding the findings several times discussed with Dr. Osorio the review of old charting that was available admission orders and documentation the above Disposition Clinical Impression: Systolic congestive heart failure, Renal insufficiency syndrome, Chronic atrial fibrillation, D-dimer, elevated Disposition: ADMITTED IP TO THIS HOSP Condition: Fair Referrals: Koko Gold MD [Primary Care Provider] - 1-2 days
[2018-08-03 11:42] LABS: Anisocytosis Slight; Basophils % (A) 0 %; Eosinophils # (A) 0.2 k/uL (0-0.7); Eosinophils % (A) 2 %; HCT 32.5 % (34.0-46.0); HGB 10.3 gm/dL (11.4-16.0); Hypochromasia Slight; Lymphocytes # (A) 1.9 k/uL (1.0-4.8); Lymphocytes % (A) 24 %; MCH 26.9 pg (25.0-35.0); MCHC 31.7 g/dL (31.0-37.0); MCV 84.9 fL (80.0-100.0); Monocytes # (A) 0.3 k/uL (0-1.0); Monocytes % (A) 3 %; Neutrophils # (A) 5.5 k/uL (1.3-7.7); Neutrophils % (A) 67 %; Platelet Count 227 k/uL (150-450); RBC 3.83 m/uL (3.80-5.40); RDW 16.9 % (11.5-15.5); WBC 8.2 k/uL (3.8-10.6)
[2018-08-03 11:55] LABS: Albumin 3.5 g/dL (3.5-5.0); Potassium 3.6 mmol/L (3.5-5.1); Total Bilirubin 0.7 mg/dL (0.2-1.3); Total Protein 6.4 g/dL (6.3-8.2)
--- NOTE | 2018-08-03 11:57 | XR ---
EXAMINATION TYPE: XR chest 2V DATE OF EXAM: 08/03/2018 COMPARISON: 06/13/2018 TECHNIQUE: PA and lateral views submitted. HISTORY: Shortness of breath FINDINGS: A diffuse interstitial pattern with small bilateral effusions and basilar consolidation greater on th e right. Heart enlarged. Atherosclerotic change aorta. Diffuse osteopenia with arthropathy of the jonathan ulders. No pneumothorax. Hypertrophic and degenerative changes of the spine. Surgical clips noted in the abdomen. Hyperinflation suggestive of COPD. IMPRESSION: 1. COPD with bilateral infiltrate and small effusion correlate for mild central CHF, otherwise consid er pneumonia
[2018-08-03 12:03] LABS: INR 1.2 (<1.2); Partial Thromboplastin Time 23.6 sec (22.0-30.0); Prothrombin Time 12.9 sec (9.0-12.0)
[2018-08-03 12:07] LABS: D-Dimer 2.01 mg/L FEU (<0.60)
--- NOTE | 2018-08-03 13:10 | US ---
EXAMINATION TYPE: US venous doppler duplex LE BI DATE OF EXAM: 08/03/2018 1:02 PM COMPARISON: 12/23/2017 CLINICAL HISTORY: Pain. Bilateral leg swelling with discomfort. No hx of blood clots. Patient state s she is on blood thinners. SIDE PERFORMED: Bilateral TECHNIQUE: The lower extremity deep venous system is examined utilizing real time linear array sonog adriana with graded compression, doppler sonography and color-flow sonography. VESSELS IMAGED: External Iliac Vein (EIV) Common Femoral Vein Deep Femoral Vein Greater Saphenous Vein * Femoral Vein Popliteal Vein Small Saphenous Vein * Proximal Calf Veins (* superficial vessels) Suboptimal visualization due to penetration from swelling extensive soft tissue edema noted. Right Leg: Negative for DVT Left Leg: Negative for DVT IMPRESSION: 1. Limited exam as discussed above demonstrates no diagnostic evidence of DVT as visualized.
[2018-08-03] MEDS ORDERED: WARFARIN 2 MG TAB PO SCH ×2 (16:00→18:00)
[2018-08-03] MEDS ORDERED: ACETAMINOPHEN TAB 325 MG TAB PO PRN (16:31)
[2018-08-03] MEDS ORDERED: NITROGLYCERIN SL TABS 0.4 MG TAB SUBLINGUAL PRN (16:31)
--- NOTE | 2018-08-03 17:48 | P.HPIM ---
History of Present Illness H&P Date: 08/03/18 Chief Complaint: Dyspnea Patient 87-year-old female with history of congestive heart failure, atrial fibrillation, on Coumadin, coronary disease status post stent states over the last 2 days she's had increasing dyspnea and lower extremity edema. Patient has been hospitalized or service multiple times in the past for congestive heart failure exacerbation she states she was advised by her her family physician to elevate her legs while lying flat, she notes that this caused her to feel more short of breath. Patient does not weigh herself daily she does not monitor her water intake and states that she does not use much salt. This was brought to the emergency room because of progressive shortness of breath was noted to have increased pulmonary congestion worsening renal dysfunction she was given Lasix IV, started on oxygen supplementation and then admitted for further workup and management. She states that her lower extremities are swollen since her knee replacement a few years ago. Review of Systems Complete review of systems done and negative other than stated above Past Medical History Past Medical History: Atrial Fibrillation, Coronary Artery Disease (CAD), Heart Failure, GERD/Reflux, Hyperlipidemia, Hypertension, Thyroid Disorder Additional Past Medical History / Comment(s): Coronary artery disease, chronic atrial fibrillation, hypertension, hyperlipidemia, chronic stage II kidney disease with a baseline creatinine of around 1.5, hypothyroidism, glaucoma History of Any Multi-Drug Resistant Organisms: None Reported Past Surgical History: Cholecystectomy, Heart Catheterization With Stent, Hysterectomy, Orthopedic Surgery, Tonsillectomy Additional Past Surgical History / Comment(s): right knee replacement, carpal tunnel release, "thyroidectomy", fco feet -heel spurs, cataracts-lens implants. Past Anesthesia/Blood Transfusion Reactions: No Reported Reaction Date of Last Stent Placement:: 2013 Past Psychological History: No Psychological Hx Reported Smoking Status: Former smoker Past Alcohol Use History: None Reported Past Drug Use History: None Reported - Past Family History Daughter(s) Additional Family Medical History / Comment(s): short term memory loss Father Additional Family Medical History / Comment(s): denies family history of cancer or DM in her mother Medications and Allergies Home Medications Medication Instructions Recorded Confirmed Type ALPRAZolam [Xanax] 0.5 mg PO HS 12/03/17 08/03/18 History Ergocalciferol (Vitamin D2) 50,000 unit PO SA 12/03/17 08/03/18 History [Vitamin D2] Isosorbide Mononitrate ER [Imdur] 30 mg PO DAILY 12/03/17 08/03/18 History Latanoprost [Xalatan 0.005%] 1 drop BOTH EYES HS 12/03/17 08/03/18 History Levothyroxine Sodium 112 mcg PO DAILY 12/03/17 08/03/18 History Pravastatin Sodium [Pravachol] 40 mg PO HS 12/03/17 08/03/18 History Albuterol Inhaler [Ventolin Hfa 1 - 2 puff INHALATION RT-Q6H PRN 12/06/17 08/03/18 Rx Inhaler] #1 inhaler Furosemide [Lasix] 40 mg PO BID@0900,1600 #60 tab 12/25/17 08/03/18 Rx Lisinopril [Zestril] 10 mg PO DAILY #30 tab 12/25/17 08/03/18 Rx Spironolactone [Aldactone] 25 mg PO DAILY #30 tab 12/25/17 08/03/18 Rx Acetaminophen with Codeine 1 tab PO Q6H PRN 06/09/18 08/03/18 History [Tylenol w/codeine #3] Nitroglycerin Sl Tabs [Nitrostat] 0.4 mg SUBLINGUAL Q5M PRN 06/09/18 08/03/18 History Pantoprazole [Protonix] 40 mg PO DAILY 06/09/18 08/03/18 History Acetaminophen Tab [Tylenol] 650 mg PO Q6HR PRN tab 06/15/18 08/03/18 Rx Carvedilol [Coreg*] 12.5 mg PO BID-W/MEALS tab 06/15/18 08/03/18 Rx Cefadroxil [Duricef] 500 mg PO Q12HR 08/03/18 08/03/18 History Warfarin Sodium 2 mg PO Q48H 08/03/18 08/03/18 History Warfarin Sodium 4 mg PO Q48H 08/03/18 08/03/18 History Allergies Allergy/AdvReac Type Severity Reaction Status Date / Time brimonidine [From Simbrinza] Allergy Unknown Verified 08/03/18 10:52 brinzolamide [From Simbrinza] Allergy Unknown Verified 08/03/18 10:52 Physical Exam Vitals: Vital Signs Temp Pulse Resp BP Pulse Ox 08/03/18 17:00 72 18 168/95 08/03/18 16:30 67 18 168/95 100 08/03/18 14:00 60 15 161/87 08/03/18 13:00 78 22 151/74 99 08/03/18 12:30 89 23 168/60 99 08/03/18 12:00 65 18 111/77 100 08/03/18 11:17 80 08/03/18 11:06 76 08/03/18 10:38 97.9 F 75 18 171/67 95 Intake and Output 08/03/18 08/03/18 08/03/18 06:59 14:59 22:59 Other: Weight 72.575 kg - Constitutional General appearance: mild distress - Respiratory Respiratory: bilateral: diminished, rales - Cardiovascular Rhythm: irregularly irregular Heart sounds: normal: S1, S2 - Integumentary Chronic stasis changes, 2+ edema - Neurologic Neurologic: CNII-XII intact - Psychiatric Psychiatric: A&O x's 3, appropriate affect, intact judgment & insight Results CBC & Chem 7: 08/03/18 11:30 08/03/18 11:30 Labs: Abnormal Lab Results - Last 24 Hours (Table) 08/03/18 08/03/18 08/03/18 Range/Units 11:30 11:30 11:30 Hgb 10.3 L (11.4-16.0) gm/dL Hct 32.5 L (34.0-46.0) % RDW 16.9 H (11.5-15.5) % PT 12.9 H (9.0-12.0) sec INR 1.2 H (<1.2) D-Dimer 2.01 H (<0.60) mg/L FEU Carbon Dioxide 31 H (22-30) mmol/L BUN 28 H (7-17) mg/dL Creatinine 1.43 H (0.52-1.04) mg/dL Chest x-ray: report reviewed, image reviewed (Chest x-ray was reviewed by me agree with results as reported) Thrombosis Risk Factor Assmnt - DVT/VTE Prophylaxis DVT/VTE Prophylaxis: Contraindicated - See note (Patient on Coumadin) - Choose All That Apply Each Factor Represents 1 point: Obesity (BMI >25), Swollen legs (current) Each Risk Factor Represents 3 Points: Age 75 years or older (Patient on Coumadin) Thrombosis Risk Factor Assessment Total Risk Factor Score: 5 Thrombosis Risk Factor Assessment Level: High Risk Assessment and Plan Assessment: Acute congestive heart failure Possible pneumonia Acute kidney injury A. fib Coronary disease HTN Plan: IV diuresis with IV Lasix CHF education, Optimize blood pressure control, control heart rate and continue Coumadin, cardiology consult patient would likely benefit from home. Chest x-ray showed CHF versus pneumonia hold patient is afebrile she does not have any sputum production and given her history we'll treat for CHF at this time Discharge given the acuity of her respiratory distress or need for diuresis and monitoring of her kidney function anticipated the patient will need greater than 2 midnights they,
--- NOTE | 2018-08-03 18:18 | NM ---
EXAMINATION TYPE: NM pul vent and perfuse DATE OF EXAM: 08/03/2018 COMPARISON: NONE HISTORY: TECHNIQUE: Utilizing inhalation of 68.7 mCi Tc 99m DTPA aerosol and intravenous injection of 4.7 mCi of Tc 99m MAA, ventilation and perfusion images are acquired post injection in multiple projections. FINDINGS: There are bilateral basilar ventilation and perfusion defects involving basal segments of both lower lobes. Ventilation abnormality appears worse than the perfusion abnormality. There is also defect ayanna ng the major fissures consistent with pleural fluid. The chest x-ray today shows pleural effusions an d moderate congestion. IMPRESSION: There are matching defects in the area of radiographic abnormality related to pleural fluid. There is a low probability of pulmonary embolism.
[2018-08-03 18:53] VITALS: BMI 30.9
[2018-08-03] MEDS ORDERED: IPRATROPIUM-ALBUTEROL 3 ML NEB INHALATION SCH (20:00)
[2018-08-03] MEDS: FUROSEMIDE 10 MG/ML 4 ML VIAL IV SCH (20:41)
[2018-08-03] MEDS: CARVEDILOL 12.5 MG TAB PO SCH (20:41)
[2018-08-03] MEDS: PRAVASTATIN SODIUM 40 MG TAB PO SCH (20:41)
[2018-08-03] MEDS ORDERED: IPRATROPIUM-ALBUTEROL 3 ML NEB INHALATION PRN (21:00)
[2018-08-03] MEDS ORDERED: CEFADROXIL 500 MG PO SCH (21:00)
[2018-08-03] MEDS: ALPRAZolam 0.5 MG TAB PO SCH (22:43)
[2018-08-03] MEDS: LATANOPROST 0.005% OPHTH DROPS 2.5 ML BTL BOTH EYES SCH (22:43)
[2018-08-04 06:13] LABS: Anisocytosis Slight; Basophils % (A) 0 %; Eosinophils # (A) 0.3 k/uL (0-0.7); Eosinophils % (A) 4 %; HCT 31.8 % (34.0-46.0); HGB 9.7 gm/dL (11.4-16.0); Hypochromasia Slight; Lymphocytes # (A) 1.5 k/uL (1.0-4.8); Lymphocytes % (A) 21 %; MCH 26.2 pg (25.0-35.0); MCHC 30.6 g/dL (31.0-37.0); MCV 85.8 fL (80.0-100.0); Mean Platelet Volume 7.1; Monocytes # (A) 0.4 k/uL (0-1.0); Monocytes % (A) 5 %; Neutrophils # (A) 4.7 k/uL (1.3-7.7); Neutrophils % (A) 67 %; Platelet Count 200 k/uL (150-450); RDW 16.7 % (11.5-15.5); WBC 6.9 k/uL (3.8-10.6)
[2018-08-04 06:22] LABS: Calcium 9.1 mg/dL (8.4-10.2); INR 1.3 (<1.2); Partial Thromboplastin Time 23.6 sec (22.0-30.0); Potassium 3.4 mmol/L (3.5-5.1); Prothrombin Time 13.5 sec (9.0-12.0)
[2018-08-04] MEDS: LEVOTHYROXINE 112 MCG TAB PO SCH (06:40)
[2018-08-04] MEDS: PANTOPRAZOLE 40 MG TABLET PO SCH (06:40)
[2018-08-04] MEDS: CARVEDILOL 12.5 MG TAB PO SCH ×2 (06:40→16:20)
[2018-08-04] MEDS: IPRATROPIUM-ALBUTEROL 3 ML NEB INHALATION SCH ×4 (07:26→21:28)
[2018-08-04] MEDS: FUROSEMIDE 10 MG/ML 4 ML VIAL IV SCH ×2 (08:12→22:08)
[2018-08-04] MEDS: LISINOPRIL 10 MG TAB PO SCH (08:12)
[2018-08-04] MEDS: SPIRONOLACTONE 25 MG TAB PO SCH (08:12)
[2018-08-04] MEDS: ISOSORBIDE MONONITRATE ER 30 MG TAB.ER.24H PO SCH (08:12)
[2018-08-04] MEDS ORDERED: FUROSEMIDE 40 MG TAB PO SCH (09:00)
[2018-08-04] MEDS ORDERED: ERGOCALCIFEROL 50,000 UNIT CAP PO SCH (09:00)
[2018-08-04] MEDS ORDERED: HEPARIN SODIUM,PORCINE 5,000 UNIT/ML 1 ML VIAL IV PRN (09:45)
--- NOTE | 2018-08-04 09:47 | P.CRDCN ---
History of Present Illness Consult date: 08/04/18 Requesting physician: Michael Osorio Consult reason: congestive heart failure Chief complaint: Shortness of breath History of present illness: This is an 87-year-old female who follows regularly with Dr. Rao in the office. As a known history of hypertension, hyperlipidemia, coronary artery disease with prior RCA stenting, chronic persistent atrial fibrillation, presents to the hospital on this occasion with symptoms of shortness of breath. Patient had just recently been discharged home from the hospital. She states yesterday overall she was feeling significantly better, s he went down for a lung scan, had to lay flat for a period of time and had another episode of difficulty in breathing. She was seen and examined this morning after she has had her shower, up ambulating in the room, overall feeling well. Blood pressure 126/56 with a heart rate in the 70s. 99% on room air. White blood cell count 6.9, hemoglobin 9.7, platelet count 200. Sodium 140, potassium 3.4, BUN 27 and creatinine 1.4. D-dimer on admission was 2.01 and a lung scan was low probability for pulmonary embolism. Troponins negative 2. BNP [id number]. Patient is currently on IV Lasix. Weight is down 1 kg today. Chest x-ray showed COPD with bilateral infiltrate and small effusion, mild c ongestive heart failure. EKG shows atrial fibrillation with a controlled ventricular response. Past Medical History Past Medical History: Atrial Fibrillation, Coronary Artery Disease (CAD), Heart Failure, GERD/Reflux, Hyperlipidemia, Hypertension, Thyroid Disorder Additional Past Medical History / Comment(s): Coronary artery disease, chronic atrial fibrillation, hypertension, hyperlipidemia, chronic stage II kidney disease with a baseline creatinine of around 1.5, hypothyroidism, glaucoma History of Any Multi-Drug Resistant Organisms: None Reported Past Surgical History: Cholecystectomy, Heart Catheterization With Stent, Hysterectomy, Orthopedic Surgery, Tonsillectomy Additional Past Surgical History / Comment(s): right knee replacement, carpal tunnel release, "thyroidectomy", fco feet -heel spurs, cataracts-lens implants. Past Anesthesia/Blood Transfusion Reactions: No Reported Reaction Date of Last Stent Placement:: 2013 Past Psychological History: No Psychological Hx Reported Additional Psychological History / Comment(s): pt's daughter abimbola lives with pt. in past pt has had [facility]. goes to pt. has walker/cane Smoking Status: Former smoker Past Alcohol Use History: None Reported Additional Past Alcohol Use History / Comment(s): started smoking at age 20(1950) and quit 1987.smoked less than a pack per day Past Drug Use History: None Reported - Past Family History Daughter(s) Additional Family Medical History / Comment(s): short term memory loss Father Additional Family Medical History / Comment(s): denies family history of cancer or DM in her mother Medications and Allergies Home Medications Medication Instructions Recorded Confirmed Type ALPRAZolam [Xanax] 0.5 mg PO HS 12/03/17 08/03/18 History Ergocalciferol (Vitamin D2) 50,000 unit PO SA 12/03/17 08/03/18 History [Vitamin D2] Isosorbide Mononitrate ER [Imdur] 30 mg PO DAILY 12/03/17 08/03/18 History Latanoprost [Xalatan 0.005%] 1 drop BOTH EYES HS 12/03/17 08/03/18 History Levothyroxine Sodium 112 mcg PO DAILY 12/03/17 08/03/18 History Pravastatin Sodium [Pravachol] 40 mg PO HS 12/03/17 08/03/18 History Albuterol Inhaler [Ventolin Hfa 1 - 2 puff INHALATION RT-Q6H PRN 12/06/17 08/03/18 Rx Inhaler] #1 inhaler Furosemide [Lasix] 40 mg PO BID@0900,1600 #60 tab 12/25/17 08/03/18 Rx Lisinopril [Zestril] 10 mg PO DAILY #30 tab 12/25/17 08/03/18 Rx Spironolactone [Aldactone] 25 mg PO DAILY #30 tab 12/25/17 08/03/18 Rx Acetaminophen with Codeine 1 tab PO Q6H PRN 06/09/18 08/03/18 History [Tylenol w/codeine #3] Nitroglycerin Sl Tabs [Nitrostat] 0.4 mg SUBLINGUAL Q5M PRN 06/09/18 08/03/18 History Pantoprazole [Protonix] 40 mg PO DAILY 06/09/18 08/03/18 History Acetaminophen Tab [Tylenol] 650 mg PO Q6HR PRN tab 06/15/18 08/03/18 Rx Carvedilol [Coreg*] 12.5 mg PO BID-W/MEALS tab 06/15/18 08/03/18 Rx Cefadroxil [Duricef] 500 mg PO Q12HR 08/03/18 08/03/18 History Warfarin Sodium 2 mg PO Q48H 08/03/18 08/03/18 History Warfarin Sodium 4 mg PO Q48H 08/03/18 08/03/18 History Allergies Allergy/AdvReac Type Severity Reaction Status Date / Time brimonidine [From Simbrinza] Allergy Unknown Verified 08/03/18 10:52 brinzolamide [From Simbrinza] Allergy Unknown Verified 08/03/18 10:52 Physical Exam Vitals: Vital Signs Temp Pulse Pulse Resp BP BP Pulse Ox 08/04/18 08:17 97.6 F 68 18 111/49 97 08/04/18 07:42 76 08/04/18 07:28 76 98 08/04/18 06:01 78 08/04/18 05:54 70 08/04/18 04:00 98.3 F 60 18 126/56 99 08/04/18 00:00 67 18 112/53 97 08/03/18 21:00 96.6 F L 57 L 18 212/83 95 08/03/18 20:03 70 08/03/18 19:58 65 08/03/18 18:00 72 16 168/95 100 08/03/18 17:00 72 18 168/95 08/03/18 16:30 67 18 168/95 100 08/03/18 14:00 60 15 161/87 08/03/18 13:00 78 22 151/74 99 08/03/18 12:30 89 23 168/60 99 08/03/18 12:00 65 18 111/77 100 08/03/18 11:17 80 08/03/18 11:06 76 08/03/18 10:38 97.9 F 75 18 171/67 95 Intake and Output 08/03/18 08/04/18 08/04/18 22:59 06:59 14:59 Output Total 200 300 Balance -200 -300 Output: Urine 200 300 Other: Voiding Method Toilet Toilet # Voids 1 Weight 71.8 kg 71.8 kg PHYSICAL EXAMINATION: GENERAL: 87 stroke female in no acute distress at the time of my examination HEENT: Head is atraumatic, normocephalic. Pupils equal, round. Sclera anicteric. Conjunctiva are clear. Mucous membranes of the mouth are moist. Neck is supple. There is no elevated jugular venous pressure. No carotid bruit is heard. HEART EXAMINATION: Heart S1 and S2 irregularly irregular a systolic murmur is heard CHEST EXAMINATION: Lungs are clear with diminished air entry to the bases. ABDOMEN: Soft, nontender. Bowel sounds are heard. No organomegaly noted. EXTREMITIES: 2+ peripheral pulses with trace evidence of peripheral edema and no calf tenderness noted. NEUROLOGIC patient is awake, alert and oriented 3 . . Results 08/04/18 05:35 08/04/18 05:35 Cardiac Enzymes 08/03/18 08/03/18 08/03/18 Range/Units 11:30 11:30 23:15 AST 17 (14-36) U/L Troponin I <0.012 <0.012 (0.000-0.034) ng/mL Coagulation 08/03/18 08/04/18 Range/Units 11:30 05:35 PT 12.9 H 13.5 H (9.0-12.0) sec APTT 23.6 23.6 (22.0-30.0) sec CBC 08/03/18 08/04/18 Range/Units 11:30 05:35 WBC 8.2 6.9 (3.8-10.6) k/uL RBC 3.83 3.70 L (3.80-5.40) m/uL Hgb 10.3 L 9.7 L (11.4-16.0) gm/dL Hct 32.5 L 31.8 L (34.0-46.0) % Plt Count 227 200 (150-450) k/uL Comprehensive Metabolic Panel 08/03/18 08/04/18 Range/Units 11:30 05:35 Sodium 140 140 (137-145) mmol/L Potassium 3.6 3.4 L (3.5-5.1) mmol/L Chloride 103 101 (98-107) mmol/L Carbon Dioxide 31 H 34 H (22-30) mmol/L BUN 28 H 27 H (7-17) mg/dL Creatinine 1.43 H 1.44 H (0.52-1.04) mg/dL Glucose 96 102 H (74-99) mg/dL Calcium 9.0 9.1 (8.4-10.2) mg/dL AST 17 (14-36) U/L ALT 17 (9-52) U/L Alkaline Phosphatase 94 (38-126) U/L Total Protein 6.4 (6.3-8.2) g/dL Albumin 3.5 (3.5-5.0) g/dL Current Medications Generic Name Dose Route Start Last Admin Trade Name Freq PRN Reason Stop Dose Admin Acetaminophen 650 mg 08/03/18 16:31 Tylenol Tab PO Q6HR PRN Fever and/ or MILD Pain Albuterol/Ipratropium 3 ml 08/04/18 08:00 08/04/18 07:26 Duoneb 0.5 Mg-3 Mg/3 Ml Soln INHALATION 3 ml RT-QID LEONARDO Administration Albuterol/Ipratropium 3 ml 08/03/18 21:00 08/04/18 05:54 Duoneb 0.5 Mg-3 Mg/3 Ml Soln INHALATION 3 ml RT-Q2H PRN Administration Shortness Of Breath Or Wheezing Alprazolam 0.5 mg 08/03/18 21:00 08/03/18 22:43 Xanax PO 0.5 mg HS LEONARDO Administration Carvedilol 12.5 mg 08/03/18 17:30 08/04/18 06:40 Coreg PO 12.5 mg BID-W/MEALS LEONARDO Administration Ergocalciferol 50,000 unit 08/04/18 09:00 08/04/18 08:12 Vitamin D2 PO 50,000 unit LEONARDO Administration Furosemide 40 mg 08/03/18 21:00 08/04/18 08:12 Lasix IV 40 mg Q12H LEONARDO Administration Isosorbide Mononitrate 30 mg 08/04/18 09:00 08/04/18 08:12 Imdur PO 30 mg DAILY LEONARDO Administration Latanoprost 1 drops 08/03/18 21:00 08/03/18 22:43 Xalatan 0.005% BOTH EYES 1 drops HS LEONARDO Administration Levothyroxine Sodium 112 mcg 08/04/18 06:30 08/04/18 06:40 Synthroid PO 112 mcg DAILY@0630 LEONARDO Administration Lisinopril 10 mg 08/04/18 09:00 08/04/18 08:12 Zestril PO 10 mg DAILY LEONARDO Administration Nitroglycerin 0.4 mg 08/03/18 16:31 Nitrostat SUBLINGUAL Q5M PRN Chest Pain Pantoprazole Sodium 40 mg 08/04/18 06:30 08/04/18 06:40 Protonix PO 40 mg DAILY@0630 LEONARDO Administration Pravastatin Sodium 40 mg 08/03/18 21:00 08/03/18 20:41 Pravachol PO 40 mg HS LEONARDO Administration Spironolactone 25 mg 08/04/18 09:00 08/04/18 08:12 Aldactone PO 25 mg DAILY LEONARDO Administration Warfarin Sodium 4 mg 08/04/18 18:00 Coumadin PO Q48H LEONARDO Warfarin Sodium 2 mg 08/03/18 18:00 08/03/18 20:41 Coumadin PO 2 mg Q48H LEONARDO Administration Intake and Output 08/03/18 08/04/18 08/04/18 22:59 06:59 14:59 Output Total 200 300 Balance -200 -300 Output: Urine 200 300 Other: Voiding Method Toilet Toilet # Voids 1 Weight 71.8 kg 71.8 kg 08/04/18 05:35 08/04/18 05:35 EKG Interpretations (text) EKG shows atrial fibrillation with a controlled ventricular response. Assessment and Plan Plan: Assessment and plan #1 diastolic congestive heart failure acute on chronic #2 chronic persistent atrial fibrillation #3 hypertension #4 hyperlipidemia #5 coronary artery disease with prior RCA stenting #6 valvular heart disease with mild aortic regurg, mild tricuspid regurg and moderate mitral regurgitation patient's most recent echocardiogram with Doppler study was performed in November 2017 which revealed an ejection fraction of 50- 55%, Plan We will continue current dose of IV Lasix, continue to monitor intake and output and daily weights. Repeat echocardiogram with Doppler study. DNP note has been reviewed, I agree with a documented findings and plan of care. Patient was seen and examined.
[2018-08-04] MEDS ORDERED: HEPARIN SOD,PORK IN 0.45% NACL 25,000 UNIT in 0.45% NACL 1 250ML.BAG IV SCH (10:00)
[2018-08-04] MEDS ORDERED: LOPERAMIDE 2 MG CAP PO STA (12:00)
--- NOTE | 2018-08-04 12:07 | P.PN ---
Subjective Progress Note Date: 08/04/18 Principal diagnosis: shortness of breath Patient is an 87-year-old female from past medical history of congestive heart failure, A. fib on Coumadin, coronary artery disease, dyslipidemia, and hypertension presented to the emergency department with dyspnea and increasing lower extremity edema. On arrival to the emergency department she was found be slightly hypertensive with a blood pressure of 171/67. Initial laboratory analysis showed a subtherapeutic INR at 1.2, elevated d-dimer at 2, and creatinine of 1.44 which is near her baseline. Chest x-ray showed COPD with bilateral infiltrate and small effusion consistent with congestive heart failure, lower extremity Dopplers negative for DVT, VQ scan showed low probability of pulmonary embolism. Her BNP was elevated at 3800. She was started on IV Lasix and admitted for further monitoring. Patient seen and examined at bedside. She reports her breathing is slightly better than yesterday. She reports her edema is slightly improved. She is still significantly short of breath when up and ambulating. She denies any chest discomfort. She is having some diarrhea which is chronic in nature for her and she typically takes 2 Imodium for this. Objective - Vital Signs Vital signs: Vital Signs Temp 97.6 F 08/04/18 08:17 Pulse 68 08/04/18 08:17 Resp 18 08/04/18 08:17 BP 111/49 08/04/18 08:17 Pulse Ox 97 08/04/18 08:17 Intake & Output 08/03/18 08/04/18 08/04/18 18:59 06:59 18:59 Intake Total 240 Output Total 0 500 250 Balance 0 -500 -10 Weight 71.8 kg 71.8 kg Intake: Oral 240 Output: Urine 0 500 250 Other: Voiding Method Toilet Toilet # Voids 1 1 - Exam General: non toxic, no distress, appears at stated age Derm: warm, dry Head: atraumatic, normocephalic, symmetric Eyes: EOMI, no lid lag, anicteric sclera Mouth: no lip lesion, mucus membranes moist Cardiovascular: S1S2 reg, no murmur, positive posterior tibial pulse bilateral, Lungs: crackels bilateral, no rhonchi, no rales , no accessory muscle use Abdominal: soft, nontender to palpation, no guarding, no appreciable organomegaly Ext: no gross muscle atrophy, 3+ edema, no contractures Neuro: CN II-XI grossly intact, no focal neuro deficits Psych: Alert, oriented, appropriate affect - Labs CBC & Chem 7: 08/04/18 05:35 08/04/18 05:35 Labs: Abnormal Lab Results - Last 24 Hours (Table) 08/03/18 08/04/18 08/04/18 Range/Units 11:30 05:35 05:35 RBC 3.70 L (3.80-5.40) m/uL Hgb 9.7 L (11.4-16.0) gm/dL Hct 31.8 L (34.0-46.0) % MCHC 30.6 L (31.0-37.0) g/dL RDW 16.7 H (11.5-15.5) % PT 12.9 H (9.0-12.0) sec INR 1.2 H (<1.2) D-Dimer 2.01 H (<0.60) mg/L FEU Potassium 3.4 L (3.5-5.1) mmol/L Carbon Dioxide 34 H (22-30) mmol/L BUN 27 H (7-17) mg/dL Creatinine 1.44 H (0.52-1.04) mg/dL Glucose 102 H (74-99) mg/dL 08/04/18 Range/Units 05:35 RBC (3.80-5.40) m/uL Hgb (11.4-16.0) gm/dL Hct (34.0-46.0) % MCHC (31.0-37.0) g/dL RDW (11.5-15.5) % PT 13.5 H (9.0-12.0) sec INR 1.3 H (<1.2) D-Dimer (<0.60) mg/L FEU Potassium (3.5-5.1) mmol/L Carbon Dioxide (22-30) mmol/L BUN (7-17) mg/dL Creatinine (0.52-1.04) mg/dL Glucose (74-99) mg/dL Assessment and Plan Assessment: Exacerbation of diastolic congestive heart failure, ejection fraction 50-55% -Continue with IV Lasix, Coreg, lisinopril, and spironolactone -Cardiology recommendations appreciated -Echocardiogram currently pending -Strict I's and O's, daily weights, low sodium diet A. fib, rate controlled with a subtherapeutic INR -On heparin drip secondary to subtherapeutic INR -Coumadin 5 mg today then pharmacy to dose -Follow PT/INR daily -Telemetry -Continue with beta larissa Hypertension, urgency on arrival now improved -Continue with Coreg, Lasix, Imdur, lisinopril -Follow blood pressures Dyslipidemia -Continue with statin therapy Obesity with BMI 30.9 -Outpatient structured weight loss GERD -PPI DVT prophylaxis: Heparin drip Discussed with: Patient, nursing Anticipated discharge: 1-[address]: Home with home health A total of 35 minutes was spent on the care of this complex patient more than 50% of the time was spent in counseling and care coordination.
[2018-08-04] MEDS ORDERED: WARFARIN 2 MG TAB PO SCH (18:00)
[2018-08-04] MEDS ORDERED: WARFARIN 5 MG TAB PO ONE (18:00)
[2018-08-04] MEDS: ALPRAZolam 0.5 MG TAB PO SCH (22:07)
[2018-08-04] MEDS: LATANOPROST 0.005% OPHTH DROPS 2.5 ML BTL BOTH EYES SCH (22:07)
[2018-08-04] MEDS: PRAVASTATIN SODIUM 40 MG TAB PO SCH (22:08)
[2018-08-05] MEDS: CARVEDILOL 12.5 MG TAB PO SCH ×2 (07:03→15:56)
[2018-08-05] MEDS: PANTOPRAZOLE 40 MG TABLET PO SCH (07:03)
[2018-08-05] MEDS: LEVOTHYROXINE 112 MCG TAB PO SCH (07:03)
[2018-08-05] MEDS: SPIRONOLACTONE 25 MG TAB PO SCH (07:57)
[2018-08-05] MEDS: FUROSEMIDE 10 MG/ML 4 ML VIAL IV SCH ×3 (07:57→23:22)
[2018-08-05] MEDS: ISOSORBIDE MONONITRATE ER 30 MG TAB.ER.24H PO SCH (07:57)
[2018-08-05] MEDS: LISINOPRIL 10 MG TAB PO SCH (07:57)
--- NOTE | 2018-08-05 08:29 | ECHOF ---
Referral Reason:chf MEASUREMENTS -------- HEIGHT: 152.4 cm WEIGHT: 72.6 kg BP: IVSd: 1.1 cm (0.6 - 1.1) LVIDd: 2.9 cm (3.9 - 5.3) LVPWd: 1.1 cm (0.6 - 1.1) IVSs: 1.5 cm LVIDs: 1.6 cm LVPWs: 1.3 cm LAESV Index (A-L): 31.07 ml/m Ao Diam: 3.1 cm (2.0 - 3.7) AV Cusp: 1.9 cm (1.5 - 2.6) LA Diam: 3.5 cm (2.7 - 3.8) MV EXCURSION: 16.659 mm (> 18.000) MV EF SLOPE: 59 mm/s (70 - 150) EPSS: 1.6 cm MV E Pete: 1.28 m/s MV DecT: 173 ms MV A Pete: 0.29 m/s MV E/A Ratio: 4.35 AR PHT: 826 ms RAP: 20.00 mmHg RVSP: 56.04 mmHg FINDINGS -------- Sinus rhythm with extra systolic beats. This was a technically good study. The left ventricular size is normal. Left ventricular wall thickness is normal. Overall left vent ricular systolic function is normal with, an EF between 55 - 60 %. The right ventricle is normal in size. LA is midly dilated 29-33ml/m2. The right atrial size is normal. Interatrial and interventricular septum intact. Aortic valve is trileaflet and is mildly thickened. There is [id number] aortic regurgitation. The mitral valve leaflets are mildly thickened. Mild mitral regurgitation is present. Moderate tricuspid regurgitation present. There is moderate pulmonary hypertension. The right jakub tricular systolic pressure, as measured by Doppler, is 56.04mmHg. There is no pulmonic regurgitation present. The aortic root size is normal. The inferior vena cava is dilated with no significant inspiratory collapse which is consistent estima ridge right atrial pressure of >20 mmHg. Echo free space indicative of a pericardial fat pad. CONCLUSIONS -------- 1. Sinus rhythm with extra systolic beats. 2. This was a technically good study. 3. The left ventricular size is normal. 4. Left ventricular wall thickness is normal. 5. Overall left ventricular systolic function is normal with, an EF between 55 - 60 %. 6. The right ventricle is normal in size. 7. LA is midly dilated 29-33ml/m2. 8. The right atrial size is normal. 9. Interatrial and interventricular septum intact. 10. Aortic valve is trileaflet and is mildly thickened. 11. There is [id number] aortic regurgitation. 12. The mitral valve leaflets are mildly thickened. 13. Mild mitral regurgitation is present. 14. Moderate tricuspid regurgitation present. 15. There is moderate pulmonary hypertension. 16. The right ventricular systolic pressure, as measured by Doppler, is 56.04mmHg. 17. There is no pulmonic regurgitation present. 18. The aortic root size is normal. 19. The inferior vena cava is dilated with no significant inspiratory collapse which is consistent es timated right atrial pressure of >20 mmHg. 20. Echo free space indicative of a pericardial fat pad. F[employer] DEVELOPER: Wanda Samayoa RDCS
[2018-08-05] MEDS: IPRATROPIUM-ALBUTEROL 3 ML NEB INHALATION SCH ×4 (08:44→19:10)
[2018-08-05 08:59] LABS: INR 2.1 (<1.2); Prothrombin Time 20.7 sec (9.0-12.0)
[2018-08-05 09:00] LABS: Anisocytosis Slight; Basophils % (A) 0 %; Eosinophils # (A) 0.3 k/uL (0-0.7); Eosinophils % (A) 3 %; HCT 30.7 % (34.0-46.0); HGB 9.6 gm/dL (11.4-16.0); Hypochromasia Slight; Lymphocytes # (A) 1.7 k/uL (1.0-4.8); Lymphocytes % (A) 17 %; MCH 26.8 pg (25.0-35.0); MCHC 31.2 g/dL (31.0-37.0); MCV 85.7 fL (80.0-100.0); Mean Platelet Volume 7.2; Monocytes # (A) 0.4 k/uL (0-1.0); Monocytes % (A) 4 %; Neutrophils # (A) 7.8 k/uL (1.3-7.7); Neutrophils % (A) 75 %; Platelet Count 183 k/uL (150-450); RBC 3.58 m/uL (3.80-5.40); RDW 16.4 % (11.5-15.5); WBC 10.3 k/uL (3.8-10.6)
[2018-08-05 09:07] LABS: Calcium 8.6 mg/dL (8.4-10.2); Magnesium 1.9 mg/dL (1.6-2.3); Potassium 3.6 mmol/L (3.5-5.1)
--- NOTE | 2018-08-05 13:19 | P.PN ---
Subjective Progress Note Date: 08/05/18 Principal diagnosis: Diastolic CHF acute on chronic This is a pleasant 87-year-old female patient with a past medical history significant for CAD, chronic diastolic congestive heart failure, chronic atrial fibrillation on oral anticoagulation was Coumadin, as well as valvular heart disease, was admitted to the hospital with acute exacerbation of congestive heart failure secondary to diastole dysfunction. On follow-up with her today, 08/05/2018, she stated that she is feeling better indeterminable shortness of breath. On examination she still have bilateral rhonchi and she still have moderate bilateral lower extremities pitting edema. She continues to be on Lasix IV. The creatinine continues to be stable. The echocardiogram revealed normal LV function was mild to moderate AI, mild MR, moderate TR. Objective - Vital Signs Vital signs: Vital Signs Temp 98.1 F 08/05/18 12:14 Pulse 62 08/05/18 12:14 Resp 20 08/05/18 12:14 BP 108/56 08/05/18 12:14 Pulse Ox 93 L 08/05/18 12:14 Intake & Output 08/04/18 08/05/18 08/05/18 18:59 06:59 18:59 Intake Total 804.999 87.452 240 Output Total 500 400 Balance 304.999 87.452 -160 Weight 72.8 kg 72.3 kg Intake: Intake, IV Titration 54.999 87.452 Amount Heparin Sod,Pork in 0.45% 54.999 87.452 NaCl 25,000 unit In 0.45 % NaCl 1 250ml.bag @ 12 UNITS/KG/HR 8.616 mls/hr IV .Q24H [facility] Rx#: [id number] Oral 750 240 Output: Urine 500 400 Other: Voiding Method Toilet Toilet Toilet # Voids 3 1 1 - Constitutional General appearance: Present: no acute distress - Respiratory Respiratory: bilateral: rales - Cardiovascular Rhythm: irregularly irregular Heart sounds: normal: S1, S2 - Labs CBC & Chem 7: 08/05/18 08:04 08/05/18 08:04 Labs: Abnormal Lab Results - Last 24 Hours (Table) 08/04/18 08/04/18 08/05/18 Range/Units 16:45 23:23 08:04 RBC (3.80-5.40) m/uL Hgb (11.4-16.0) gm/dL Hct (34.0-46.0) % RDW (11.5-15.5) % Neutrophils # (1.3-7.7) k/uL PT 20.7 H (9.0-12.0) sec INR 2.1 H (<1.2) APTT 40.4 H 76.1 H (22.0-30.0) sec Carbon Dioxide (22-30) mmol/L BUN (7-17) mg/dL Creatinine (0.52-1.04) mg/dL Glucose (74-99) mg/dL 08/05/18 08/05/18 08/05/18 Range/Units 08:04 08:04 08:04 RBC 3.58 L (3.80-5.40) m/uL Hgb 9.6 L (11.4-16.0) gm/dL Hct 30.7 L (34.0-46.0) % RDW 16.4 H (11.5-15.5) % Neutrophils # 7.8 H (1.3-7.7) k/uL PT (9.0-12.0) sec INR (<1.2) APTT 78.5 H (22.0-30.0) sec Carbon Dioxide 32 H (22-30) mmol/L BUN 31 H (7-17) mg/dL Creatinine 1.59 H (0.52-1.04) mg/dL Glucose 119 H (74-99) mg/dL Assessment and Plan Assessment: Assessment #1 acute exacerbation of CHF secondary to diastole dysfunction #2 atrial fibrillation was controlled heart rate. The patient does have chronic persistent atrial fibrillation #3 coronary artery disease and prior coronary revascularization #4 valvular heart disease as described above Plan #1 continue the current medical regimen #2 continue IV Lasix for additional 24 hours #3 continue oral anticoagulation with Coumadin #4 possible discharge in the next 24 hours
[2018-08-05] MEDS ORDERED: WARFARIN 2.5 MG TAB PO ONE (18:00)
[2018-08-05] MEDS ORDERED: WARFARIN 2 MG TAB PO ONE (18:00)
[2018-08-05] MEDS: PRAVASTATIN SODIUM 40 MG TAB PO SCH (19:54)
[2018-08-05] MEDS: LATANOPROST 0.005% OPHTH DROPS 2.5 ML BTL BOTH EYES SCH (19:55)
--- NOTE | 2018-08-05 20:45 | P.PN ---
Subjective Progress Note Date: 08/05/18 (delayed charting seen at 1000) Principal diagnosis: shortness of breath Patient is an 87-year-old female from past medical history of congestive heart failure, A. fib on Coumadin, coronary artery disease, dyslipidemia, and hypertension presented to the emergency department with dyspnea and increasing lower extremity edema. On arrival to the emergency department she was found be slightly hypertensive with a blood pressure of 171/67. Initial laboratory analysis showed a subtherapeutic INR at 1.2, elevated d-dimer at 2, and creatinine of 1.44 which is near her baseline. Chest x-ray showed COPD with bilateral infiltrate and small effusion consistent with congestive heart failure, lower extremity Dopplers negative for DVT, VQ scan showed low probability of pulmonary embolism. Her BNP was elevated at 3800. She was started on IV Lasix and admitted for further monitoring. She had slight improvement in her breathing by the morning after admission. Patient seen and examined at bedside. Frustrated that she still has lower extremity edema, breathing better. Frustrated at being in the hospital often. Denies dietary non compliance. Will feeling slightly weak. Objective - Vital Signs Vital signs: Vital Signs Temp 97.6 F 08/05/18 16:20 Pulse 74 08/05/18 19:20 Resp 20 08/05/18 16:20 BP 97/50 08/05/18 16:20 Pulse Ox 97 08/05/18 16:20 Intake & Output 08/05/18 08/05/18 08/06/18 06:59 18:59 06:59 Intake Total 87.452 720 Output Total 400 Balance 87.452 320 Weight 72.3 kg Intake: Intake, IV Titration 87.452 Amount Heparin Sod,Pork in 0.45% 87.452 NaCl 25,000 unit In 0.45 % NaCl 1 250ml.bag @ 12 UNITS/KG/HR 8.616 mls/hr IV .Q24H LEONARDO Rx#: [id number] Oral 720 Output: Urine 400 Other: Voiding Method Toilet Toilet # Voids 1 2 - Exam General: non toxic, no distress, appears at stated age Derm: warm, dry Head: atraumatic, normocephalic, symmetric Eyes: EOMI, no lid lag, anicteric sclera Mouth: no lip lesion, mucus membranes moist Cardiovascular: S1S2 reg, no murmur, positive posterior tibial pulse bilateral, Lungs: CTA bilateral, no accessory muscle use Abdominal: soft, nontender to palpation, no guarding, no appreciable organomegaly Ext: no gross muscle atrophy, 2+ edema, no contractures Neuro: CN II-XI grossly intact, no focal neuro deficits Psych: Alert, oriented, appropriate affect - Labs CBC & Chem 7: 08/05/18 08:04 08/05/18 08:04 Labs: Abnormal Lab Results - Last 24 Hours (Table) 08/04/18 08/05/18 08/05/18 Range/Units 23:23 08:04 08:04 RBC 3.58 L (3.80-5.40) m/uL Hgb 9.6 L (11.4-16.0) gm/dL Hct 30.7 L (34.0-46.0) % RDW 16.4 H (11.5-15.5) % Neutrophils # 7.8 H (1.3-7.7) k/uL PT 20.7 H (9.0-12.0) sec INR 2.1 H (<1.2) APTT 76.1 H (22.0-30.0) sec Carbon Dioxide (22-30) mmol/L BUN (7-17) mg/dL Creatinine (0.52-1.04) mg/dL Glucose (74-99) mg/dL 08/05/18 08/05/18 Range/Units 08:04 08:04 RBC (3.80-5.40) m/uL Hgb (11.4-16.0) gm/dL Hct (34.0-46.0) % RDW (11.5-15.5) % Neutrophils # (1.3-7.7) k/uL PT (9.0-12.0) sec INR (<1.2) APTT 78.5 H (22.0-30.0) sec Carbon Dioxide 32 H (22-30) mmol/L BUN 31 H (7-17) mg/dL Creatinine 1.59 H (0.52-1.04) mg/dL Glucose 119 H (74-99) mg/dL Assessment and Plan Assessment: Exacerbation of diastolic congestive heart failure, ejection fraction 50-55%, Moderate Pulm HTN -Continue with IV Lasix increase to TID, Coreg, lisinopril, and spironolactone -Cardiology recommendations appreciated -Echocardiogram with EF 50-55% and moderate pulm HTN -Strict I's and O's, daily weights, low sodium diet - home health with telehealth on d/c CKD III - Cr at baseline - monitor closely with diuresis - avoid additional nephrotoxic agents. A. fib, rate controlled with a therapeutic INR -stop heparin gtt, pharmacy to dose coumadin -Follow PT/INR daily -Telemetry -Continue with beta larissa Hypertension, urgency on arrival now improved -Continue with Coreg, Lasix, Imdur, lisinopril -Follow blood pressures Chronic anemia - near baseline of 10 - outpatient evaluation Dyslipidemia -Continue with statin therapy Obesity with BMI 30.9 -Outpatient structured weight loss GERD -PPI HX CAD - ASA, statin DVT prophylaxis: coumdin Discussed with: Patient, nursing Anticipated discharge: likely in AM Anticipated discharge place: Home with home health A total of 35 minutes was spent on the care of this complex patient more than 50% of the time was spent in counseling and care coordination.
[2018-08-05 21:18] VITALS: RESP 18
[2018-08-05] MEDS: ALPRAZolam 0.5 MG TAB PO SCH (23:21)
[2018-08-06 06:42] LABS: Anisocytosis Slight; Basophils % (A) 0 %; Eosinophils # (A) 0.3 k/uL (0-0.7); Eosinophils % (A) 3 %; HCT 29.3 % (34.0-46.0); HGB 9.6 gm/dL (11.4-16.0); Hypochromasia Slight; Lymphocytes # (A) 2.2 k/uL (1.0-4.8); Lymphocytes % (A) 24 %; MCH 27.8 pg (25.0-35.0); MCHC 32.9 g/dL (31.0-37.0); MCV 84.6 fL (80.0-100.0); Mean Platelet Volume 7.4; Monocytes # (A) 0.4 k/uL (0-1.0); Monocytes % (A) 4 %; Neutrophils % (A) 66 %; Platelet Count 164 k/uL (150-450); RBC 3.46 m/uL (3.80-5.40); RDW 16.6 % (11.5-15.5)
[2018-08-06] MEDS: LEVOTHYROXINE 112 MCG TAB PO SCH (06:45)
[2018-08-06] MEDS: PANTOPRAZOLE 40 MG TABLET PO SCH (06:45)
[2018-08-06] MEDS: CARVEDILOL 12.5 MG TAB PO SCH ×2 (06:45→17:19)
[2018-08-06 06:51] LABS: INR 2.6 (<1.2); Prothrombin Time 25.1 sec (9.0-12.0)
[2018-08-06 06:54] LABS: Calcium 8.5 mg/dL (8.4-10.2); Potassium 3.5 mmol/L (3.5-5.1)
[2018-08-06] MEDS: IPRATROPIUM-ALBUTEROL 3 ML NEB INHALATION SCH ×3 (08:31→16:11)
[2018-08-06] MEDS: FUROSEMIDE 10 MG/ML 4 ML VIAL IV SCH (09:02)
[2018-08-06] MEDS: ISOSORBIDE MONONITRATE ER 30 MG TAB.ER.24H PO SCH (09:09)
[2018-08-06] MEDS: LISINOPRIL 10 MG TAB PO SCH (09:09)
[2018-08-06] MEDS: FUROSEMIDE 40 MG TAB PO SCH ×2 (09:09→15:39)
[2018-08-06] MEDS: SPIRONOLACTONE 25 MG TAB PO SCH (09:09)
--- NOTE | 2018-08-06 11:44 | P.PN ---
Subjective Progress Note Date: 08/06/18 This is an 87-year-old female who follows regularly with Dr. Rao in the office. As a known history of hypertension, hyperlipidemia, coronary artery disease with prior RCA stenting, chronic persistent atrial fibrillation, presents to the hospital on this occasion with symptoms of shortne ss of breath. Patient had just recently been discharged home from the hospital. She states yesterday overall she was feeling significantly better, she went down for a lung scan, had to lay flat for a period of time and had another episode of difficulty in breathing. She was seen and examined this morning after she has had her shower, up ambulating in the room, overall feeling well. Blood pressure 126/56 with a heart rate in the 70s. 99% on room air. White blood cell count 6.9, hemoglobin 9.7, platelet count 200. Sodium 140, potassium 3.4, BUN 27 and creatinine 1.4. D-dimer on admission was 2.01 and a lung scan was low probability for pulmonary embolism. Troponins negative 2. BNP l [id number]. Patient is currently on IV Lasix. Weight is down 1 kg today. Chest x-ray showed COPD with bilateral infiltrate and small effusion, mild congestive heart failure. EKG shows atrial fibrillation with a controlled ventricular response. 08/06/2018 Patient seen and examined this morning, overall doing well. Continues to have bilateral lower extremity edema. Blood pressure 102/48 with a heart rate in the 60s, 95% on room air. White blood cell count 9.0, hemoglobin 9.6, platelet count 164, INR 2.6, sodium 137, potassium 3.5, BUN 35 and creatinine 1.8. Objective - Vital Signs Vital signs: Vital Signs Temp 98.1 F 08/06/18 08:00 Pulse 70 08/06/18 10:54 Resp 18 08/06/18 08:00 BP 101/52 08/06/18 08:00 Pulse Ox 91 L 08/06/18 08:00 Intake & Output 08/05/18 08/06/18 08/06/18 18:59 06:59 18:59 Intake Total 720 Output Total 400 Balance 320 Weight 73.2 kg Intake: Oral 720 Output: Urine 400 Other: Voiding Method Toilet Toilet # Voids 2 2 - Exam PHYSICAL EXAMINATION: GENERAL: 87 stroke female in no acute distress at the time of my examination HEENT: Head is atraumatic, normocephalic. Pupils equal, round. Sclera anicteric. Conjunctiva are clear. Mucous membranes of the mouth are moist. Neck is supple. There is no elevated jugular venous pressure. No carotid bruit is heard. HEART EXAMINATION: Heart S1 and S2 irregularly irregular a systolic murmur is heard CHEST EXAMINATION: Lungs are clear with diminished air entry to the bases. ABDOMEN: Soft, nontender. Bowel sounds are heard. No organomegaly noted. EXTREMITIES: 2+ peripheral pulses with trace evidence of peripheral edema and no calf tenderness noted. NEUROLOGIC patient is awake, alert and oriented 3 . . - Labs CBC & Chem 7: 08/06/18 06:16 08/06/18 06:16 Labs: Abnormal Lab Results - Last 24 Hours (Table) 08/06/18 08/06/18 08/06/18 Range/Units 06:16 06:16 06:16 RBC 3.46 L (3.80-5.40) m/uL Hgb 9.6 L (11.4-16.0) gm/dL Hct 29.3 L (34.0-46.0) % RDW 16.6 H (11.5-15.5) % PT 25.1 H (9.0-12.0) sec INR 2.6 H (<1.2) Carbon Dioxide 32 H (22-30) mmol/L BUN 35 H (7-17) mg/dL Creatinine 1.83 H (0.52-1.04) mg/dL Assessment and Plan Plan: Assessment and plan #1 diastolic congestive heart failure acute on chronic #2 chronic persistent atrial fibrillation #3 hypertension #4 hyperlipidemia #5 coronary artery disease with prior RCA stenting #6 valvular heart disease with mild aortic regurg, mild tricuspid regurg and moderate mitral regurgitation patient's most recent echocardiogram with Doppler study was performed in November 2017 which revealed an ejection fraction of 50- 55%, Plan patient is currently on oral diuretics which we will continue. From our perspective she may be able to be discharged home once cleared by primary and we'll make her a follow-up appointment in the office post discharge. DNP note has been reviewed, I agree with a documented findings and plan of care. Patient was seen and examined.
[2018-08-06 15:17] VITALS: BP 118/69; TEMP 98.4
--- NOTE | 2018-08-06 15:27 | P.DS ---
Providers Date of admission: 08/03/18 15:38 Expected date of discharge: 08/06/18 Attending physician: Michelle Woodall DO Primary care physician: Koko Gold Hospital Course: Discharge Diagnosis: Exacerbation of diastolic congestive heart failure with ejection fraction 50-55% Moderate pulmonary hypertension Chronic kidney disease stage III A. fib with subtherapeutic INR on admission Hypertensive urgency Chronic anemia Dyslipidemia Obesity GERD Coronary artery disease Hospital Course: Patient is an 87-year-old female from past medical history of congestive heart failure, A. fib on Coumadin, coronary artery disease, dyslipidemia, and hypertension presented to the emergency department with dyspnea and increasing lower extremity edema. On arrival to the emergency department she was found be slightly hypertensive with a blood pressure of 171/67. Initial laboratory analysis showed a subtherapeutic INR at 1.2, elevated d-dimer at 2, and creatinine of 1.44 which is near her baseline. Chest x-ray showed COPD with bilateral infiltrate and small effusion consistent with congestive heart failure, lower extremity Dopplers negative for DVT, VQ scan showed low probability of pulmonary embolism. Her BNP was elevated at 3800. She was started on IV Lasix and admitted for further monitoring. She had slight improvement in her breathing by the morning after admission. She continued to diurese well. Her Lasix was increased to 3 times daily. She had a slightly increasing creatinine which was to be expected secondary to forced diuresis. Her breathing improved. Her lower extremity edema also improved. We discussed the patient using home health with telehealth. We also discussed with her to call the physician's office if she noticed increased fluid retention for extra oral Lasix dose hopefully get treatment earlier not need hospitalization. I also tried to discuss with her salt restriction and fluid restriction. She diuresed well and was up and walking in the room. She was evaluated by physical therapy and they recommended home with home health. She was determined stable for discharge home. She does need her albuterol inhaler and nebulizer refilled. Her Lasix will be maintained at 40 mg oral twice daily however her spironolactone will be increased to 50 mg daily. She will follow up with a nurse practitioner for Dr. Gold in 1-2 days. She'll follow-up with cardiology next week. She'll have a repeat basic metabolic profile and PT/INR in 3 days with home health. Patient is at high risk for recurrent readmissions secondary to lack of understanding of her medical condition and need for frequent follow- up with physician/nurse practitioner. Patient seen and examined at bedside. Reports that she still had some tightness when trying to take a deep breath, this improved after she received another dose of nebulizer. Still having lower extremity edema but improving. Initially did not want a follow-up with a nurse practitioner because she felt she was having home health and that was good enough. I discussed with her at length need to follow-up with the nurse practitioner until Dr. Gold returns. We also di scussed the importance of keeping her cardiac follow-up appointment. Attempted to discuss dietary changes however patient was resistant to this. Patient also refused jail facility. Vital signs reviewed and stable. General: non toxic, no distress, appears at stated age Derm: warm, dry Head: atraumatic, normocephalic, symmetric Eyes: EOMI, no lid lag, anicteric sclera Mouth: no lip lesion, mucus membranes moist Cardiovascular: S1S2 reg, no murmur, positive posterior tibial pulse bilateral, Lungs: CTA bilateral, no rhonchi, no rales , no accessory muscle use Abdominal: soft, nontender to palpation, no guarding, no appreciable organomegaly Ext: no gross muscle atrophy, 2+ edema, no contractures Neuro: CN II-XI grossly intact, no focal neuro deficits Psych: Alert, oriented, appropriate affect A total of 35 minutes of time were spent preparing this complex discharge summary . Pertinent Studies: Echocardiogram-ejection fraction 55-60%, mild to moderate aortic regurg, moderate tricuspid regurg, moderate pulmonary hypertension with RVSP 56.04 VQ scan-low probability of PE Chest x-ray-COPD with bilateral infiltrate and small effusion consistent with CHF Lower extremity venous Doppler-negative for DVT Patient Condition at Discharge: Fair Plan - Discharge Summary Discharge Rx Participant: No New Discharge Prescriptions: New Ipratropium-Albuterol Nebulize [Duoneb 0.5 mg-3 mg/3 ml Soln] 3 ml INHALATION RT-Q2H PRN #1 box PRN Reason: Shortness Of Breath Or Wheezing Spironolactone 50 mg PO DAILY #30 tablet Continue Latanoprost [Xalatan 0.005%] 1 drop BOTH EYES HS Levothyroxine Sodium 112 mcg PO DAILY Pravastatin Sodium [Pravachol] 40 mg PO HS Isosorbide Mononitrate ER [Imdur] 30 mg PO DAILY Ergocalciferol (Vitamin D2) [Vitamin D2] 50,000 unit PO SA ALPRAZolam [Xanax] 0.5 mg PO HS Lisinopril [Zestril] 10 mg PO DAILY #30 tab Nitroglycerin Sl Tabs [Nitrostat] 0.4 mg SUBLINGUAL Q5M PRN PRN Reason: Chest Pain Acetaminophen with Codeine [Tylenol w/codeine #3] 1 tab PO Q6H PRN PRN Reason: Pain Pantoprazole [Protonix] 40 mg PO DAILY Carvedilol [Coreg*] 12.5 mg PO BID-W/MEALS tab Acetaminophen Tab [Tylenol] 650 mg PO Q6HR PRN tab PRN Reason: Fever And/ Or Pain Warfarin Sodium 4 mg PO Q48H Warfarin Sodium 2 mg PO Q48H Furosemide [Lasix] 40 mg PO BID@0900,1600 #60 tab Albuterol Inhaler [Ventolin Hfa Inhaler] 1 - 2 puff INHALATION RT-Q6H PRN #1 inhaler PRN Reason: Shortness Of Breath Discontinued Spironolactone [Aldactone] 25 mg PO DAILY #30 tab Cefadroxil [Duricef] 500 mg PO Q12HR Discharge Medication List ALPRAZolam [Xanax] 0.5 mg PO HS 12/03/17 [History] Ergocalciferol (Vitamin D2) [Vitamin D2] 50,000 unit PO 12/03/17 [History] Isosorbide Mononitrate ER [Imdur] 30 mg PO DAILY 12/03/17 [History] Latanoprost [Xalatan 0.005%] 1 drop BOTH EYES HS 12/03/17 [History] Levothyroxine Sodium 112 mcg PO DAILY 12/03/17 [History] Pravastatin Sodium [Pravachol] 40 mg PO HS 12/03/17 [History] Lisinopril [Zestril] 10 mg PO DAILY #30 tab 12/25/17 [Rx] Acetaminophen with Codeine [Tylenol w/codeine #3] 1 tab PO Q6H PRN 06/09/18 [History] Nitroglycerin Sl Tabs [Nitrostat] 0.4 mg SUBLINGUAL Q5M PRN 06/09/18 [History] Pantoprazole [Protonix] 40 mg PO DAILY 06/09/18 [History] Acetaminophen Tab [Tylenol] 650 mg PO Q6HR PRN tab 06/15/18 [Rx] Carvedilol [Coreg*] 12.5 mg PO BID-W/MEALS tab 06/15/18 [Rx] Warfarin Sodium 2 mg PO Q48H 08/03/18 [History] Warfarin Sodium 4 mg PO Q48H 08/03/18 [History] Albuterol Inhaler [Ventolin Hfa Inhaler] 1 - 2 puff INHALATION RT-Q6H PRN #1 inhaler 08/06/18 [Rx] Furosemide [Lasix] 40 mg PO BID@0900,1600 #60 tab 08/06/18 [Rx] Ipratropium-Albuterol Nebulize [Duoneb 0.5 mg-3 mg/3 ml Soln] 3 ml INHALATION RT-Q2H PRN #1 box 08/06/18 [Rx] Spironolactone 50 mg PO DAILY #30 tablet 08/06/18 [Rx] Follow up Appointment(s)/Referral(s): Koko Gold MD [Primary Care Provider] - 1-2 days Kevan Begum MD [STAFF PHYSICIAN] - 1 Week Ambulatory/Diagnostic Orders: Basic Metabolic Panel [LAB.AMB] Time Frame: 3 Days, Location: None Selected Prothrombin Time INR [LAB.AMB] Time Frame: 3 Days, Location: None Selected Activity/Diet/Wound Care/Special Instructions: Low sodium, 1500 cc fluid restriction Discharge Disposition: HOME WITH HOME HEALTH SERVICES
[2018-08-06 16:13] VITALS: PULSE 76
[2018-08-06] MEDS ORDERED: WARFARIN 2 MG TAB PO ONE (18:00)
== END 2018-08-06 18:16 | disposition home health service (06) | DRG 291 ==
LOC: EC 10:35 → 3SCARD 15:38
PROVIDERS: ADMIT Internal Medicine; ATTEND Internal Medicine
DX: I13.0 Hypertensive heart and chronic kidney disease with heart failure and stage 1 through stage 4 chronic kidney disease, or unspecified chronic kidney disease (principal); I50.33 Acute on chronic diastolic (congestive) heart failure; I48.1 Persistent atrial fibrillation; N17.9 Acute kidney failure, unspecified; I27.20 Pulmonary hypertension, unspecified; I08.3 Combined rheumatic disorders of mitral, aortic and tricuspid valves; J44.9 Chronic obstructive pulmonary disease, unspecified; N18.3 Chronic kidney disease, stage 3 (moderate); D64.9 Anemia, unspecified; I16.0 Hypertensive urgency; E89.0 Postprocedural hypothyroidism; I25.10 Atherosclerotic heart disease of native coronary artery without angina pectoris; K21.9 Gastro-esophageal reflux disease without esophagitis; E78.5 Hyperlipidemia, unspecified; R19.7 Diarrhea, unspecified; H40.9 Unspecified glaucoma; E66.9 Obesity, unspecified; R79.1 Abnormal coagulation profile; Z68.30 Body mass index [BMI] 30.0-30.9, adult; Z79.01 Long term (current) use of anticoagulants; Z79.890 Hormone replacement therapy; Z79.899 Other long term (current) drug therapy; Z96.651 Presence of right artificial knee joint; Z90.49 Acquired absence of other specified parts of digestive tract; Z95.5 Presence of coronary angioplasty implant and graft; Z90.710 Acquired absence of both cervix and uterus; Z98.890 Other specified postprocedural states; Z87.891 Personal history of nicotine dependence; Z98.42 Cataract extraction status, left eye; Z98.41 Cataract extraction status, right eye; Z96.1 Presence of intraocular lens; Z88.8 Allergy status to other drugs, medicaments and biological substances; Z81.8 Family history of other mental and behavioral disorders
CPT/HCPCS: 36415; 71046; 78582; 80048; 80053; 82550; 83735; 83880; 84443; 84484; 85025; 85379; 85610; 85730; 93005; 93306; 93970; 94640; 94760; 96374; 99291

== ENCOUNTER → 2018-08-09 | Outpatient (CLI) | payer MEDICARE, BC ==
[2018-08-09 13:51] LABS: INR 2.6 (<1.2); Prothrombin Time 25.1 sec (9.0-12.0)
== END | disposition home or self-care (01) ==
LOC: LABWHC1 13:05
PROVIDERS: ATTEND Internal Medicine
DX: N18.9 Chronic kidney disease, unspecified (principal); N17.9 Acute kidney failure, unspecified
CPT/HCPCS: 36415; 85610

== ENCOUNTER 2019-01-02 13:18 | Inpatient (IN) | payer MEDICARE, BC ==
[2019-01-02] MEDS ORDERED: SODIUM CHLORIDE 0.9% 1,000 ML IV STA (13:57)
[2019-01-02] MEDS ORDERED: IPRATROPIUM-ALBUTEROL 3 ML NEB INHALATION STA (13:57)
[2019-01-02 14:09] LABS: Basophils % (A) 0 %; Eosinophils # (A) 0.1 k/uL (0-0.7); Eosinophils % (A) 1 %; HCT 32.9 % (34.0-46.0); HGB 10.7 gm/dL (11.4-16.0); Lymphocytes # (A) 0.5 k/uL (1.0-4.8); Lymphocytes % (A) 3 %; MCH 27.7 pg (25.0-35.0); MCHC 32.6 g/dL (31.0-37.0); MCV 84.8 fL (80.0-100.0); Mean Platelet Volume 5.9; Monocytes # (A) 0.4 k/uL (0-1.0); Monocytes % (A) 3 %; Neutrophils # (A) 13.3 k/uL (1.3-7.7); Neutrophils % (A) 93 %; Platelet Count 216 k/uL (150-450); RBC 3.89 m/uL (3.80-5.40); RDW 15.3 % (11.5-15.5); WBC 14.3 k/uL (3.8-10.6)
--- NOTE | 2019-01-02 14:18 | ED ---
SOB HPI - General Chief Complaint: Shortness of Breath Stated Complaint: Diff Breathing Time Seen by Provider: 01/02/19 13:33 Source: EMS, RN notes reviewed, old records reviewed Mode of arrival: EMS Limitations: no limitations - History of Present Illness Initial Comments: This is a 8-year-old female poor strain secondary to mild leg which barrier as w ell as respiratory distress. Patient presents with difficulty breathing today complaining of some right lower extremity pain history of cellulitis in right lower extremity as well as not feeling well nauseous sweating and chills. She is noted to have fever here in the ER patient was unaware fever at home. No significant cough or productive cough. No chest pain currently no abdominal pain currently. MD Complaint: shortness of breath -: days(s) Severity: moderate Severity scale (1-10): 4 Quality: dull Consistency: constant Improves With: nothing Worsens With: nothing Known History Of: congestive heart failure, other (atrial fibrillation) Context: anxiety Associated Symptoms: fever, nausea/vomiting Treatments Prior to Arrival: none - Related Data Home Medications Medication Instructions Recorded Confirmed RX: ALPRAZolam [Xanax] 0.5 mg PO HS 12/03/17 01/02/19 RX: Ergocalciferol (Vitamin D2) 50,000 unit PO SA 12/03/17 01/02/19 [Vitamin D2] RX: Isosorbide Mononitrate ER 30 mg PO DAILY 12/03/17 01/02/19 [Imdur] RX: Latanoprost [Xalatan 0.005%] 1 drop BOTH EYES HS 12/03/17 01/02/19 RX: Levothyroxine Sodium 112 mcg PO DAILY 12/03/17 01/02/19 RX: Pravastatin Sodium [Pravachol] 40 mg PO HS 12/03/17 01/02/19 RX: Nitroglycerin Sl Tabs 0.4 mg SUBLINGUAL Q5M PRN 06/09/18 01/02/19 [Nitrostat] RX: Pantoprazole [Protonix] 40 mg PO DAILY 06/09/18 01/02/19 Calcium Carb/Vitamin D3/Vit K1 1 tab PO DAILY 01/02/19 01/02/19 [Citracal Soft Chew] Denosumab [Prolia] 60 mg SQ Q180D 01/02/19 01/02/19 RX: Carvedilol [Coreg*] 12.5 mg PO DAILY 01/02/19 01/02/19 RX: Potassium Chloride ER [K-Dur 10 meq PO DAILY 01/02/19 01/02/19 10] RX: Warfarin [Coumadin] 2 mg PO HS 01/02/19 01/02/19 Previous Rx's Medication Instructions Recorded RX: Lisinopril [Zestril] 10 mg PO DAILY #30 tab 12/25/17 RX: Albuterol Inhaler [Ventolin 1 - 2 puff INHALATION RT-Q6H PRN 08/06/18 Hfa Inhaler] #1 inhaler RX: Furosemide [Lasix] 40 mg PO BID@0900,1600 #60 tab 08/06/18 RX: Ipratropium-Albuterol Nebulize 3 ml INHALATION RT-Q2H PRN #1 box 08/06/18 [Duoneb 0.5 mg-3 mg/3 ml Soln] RX: Spironolactone 50 mg PO DAILY #30 tablet 08/06/18 Allergies Allergy/AdvReac Type Severity Reaction Status Date / Time brimonidine [From Simbrinza] Allergy Unknown Verified 01/02/19 13:48 brinzolamide [From Simbrinza] Allergy Unknown Verified 01/02/19 13:48 Review of Systems ROS Statement: Those systems with pertinent positive or pertinent negative responses have been documented in the HPI. ROS Other: All systems not noted in ROS Statement are negative. Past Medical History Past Medical History: Atrial Fibrillation, Coronary Artery Disease (CAD), Heart Failure, GERD/Reflux, Hyperlipidemia, Hypertension, Thyroid Disorder Additional Past Medical History / Comment(s): Coronary artery disease, chronic atrial fibrillation, hypertension, hyperlipidemia, chronic stage II kidney disease with a baseline creatinine of around 1.5, hypothyroidism, glaucoma History of Any Multi-Drug Resistant Organisms: None Reported Past Surgical History: Cholecystectomy, Heart Catheterization With Stent, Hysterectomy, Orthopedic Surgery, Tonsillectomy Additional Past Surgical History / Comment(s): right knee replacement, carpal tunnel release, "thyroidectomy", fco feet -heel spurs, cataracts-lens implants. Past Anesthesia/Blood Transfusion Reactions: No Reported Reaction Date of Last Stent Placement:: 2013 Past Psychological History: No Psychological Hx Reported Smoking Status: Former smoker Past Alcohol Use History: None Reported Past Drug Use History: None Reported - Past Family History Daughter(s) Additional Family Medical History / Comment(s): short term memory loss Father Additional Family Medical History / Comment(s): denies family history of cancer or DM in her mother General Exam Limitations: no limitations General appearance: alert, anxious, in distress Head exam: Present: atraumatic, normocephalic, normal inspection Eye exam: Present: normal appearance, PERRL, EOMI. Absent: scleral icterus, conjunctival injection, periorbital swelling ENT exam: Present: normal exam, mucous membranes moist Neck exam: Present: normal inspection. Absent: tenderness, meningismus, lymphadenopathy Respiratory exam: Present: normal lung sounds bilaterally, respiratory distress, accessory muscle use, decreased breath sounds, prolonged expiratory. Absent: wheezes, rales, rhonchi, stridor Cardiovascular Exam: Present: tachycardia, irregular rhythm, normal heart sounds. Absent: systolic murmur, diastolic murmur, rubs, gallop, clicks GI/Abdominal exam: Present: soft, normal bowel sounds. Absent: distended, tenderness, guarding, rebound, rigid Extremities exam: Present: normal inspection, full ROM, normal capillary refill. Absent: tenderness, pedal edema, joint swelling, calf tenderness Back exam: Present: normal inspection Neurological exam: Present: alert, oriented X3, CN II-XII intact Psychiatric exam: Present: normal affect, normal mood Skin exam: Present: warm, dry, intact, normal color. Absent: rash Course Vital Signs 01/02/19 01/02/19 01/02/19 13:30 14:17 14:27 Temperature 102.1 F H Pulse Rate 124 H 117 H 113 H Respiratory 16 Rate Blood Pressure 189/109 O2 Sat by Pulse 93 L Oximetry 01/02/19 14:52 Temperature 101.7 F H Pulse Rate 101 H Respiratory 22 Rate Blood Pressure 141/60 O2 Sat by Pulse 97 Oximetry - Reevaluation(s) Reevaluation #1: 01/02/19 16:34 Medical records reviewed Reevaluation #2: 01/02/19 16:34 Patient symptomatically improved with breathing treatment - Consultations Consultation #1: Spoke with Dr. Palacios for sound sound is okay for admission Medical Decision Making - Medical Decision Making 88 female here for evaluation shortness with fever, compounded pneumonia, CHF. We'll admit for cardiopulmonary resuscitation and monitoring. - Lab Data Result diagrams: 01/02/19 13:20 01/02/19 13:20 Lab Results 01/02/19 01/02/19 01/02/19 Range/Units 13:20 13:20 13:20 WBC 14.3 H (3.8-10.6) k/uL RBC 3.89 (3.80-5.40) m/uL Hgb 10.7 L (11.4-16.0) gm/dL Hct 32.9 L (34.0-46.0) % MCV 84.8 (80.0-100.0) fL MCH 27.7 (25.0-35.0) pg MCHC 32.6 (31.0-37.0) g/dL RDW 15.3 (11.5-15.5) % Plt Count 216 (150-450) k/uL Neutrophils % 93 % Lymphocytes % 3 % Monocytes % 3 % Eosinophils % 1 % Basophils % 0 % Neutrophils # 13.3 H (1.3-7.7) k/uL Lymphocytes # 0.5 L (1.0-4.8) k/uL Monocytes # 0.4 (0-1.0) k/uL Eosinophils # 0.1 (0-0.7) k/uL Basophils # 0.0 (0-0.2) k/uL PT 14.2 H (9.0-12.0) sec INR 1.4 H (<1.2) APTT 23.8 (22.0-30.0) sec Sodium 139 (137-145) mmol/L Potassium 4.0 (3.5-5.1) mmol/L Chloride 98 (98-107) mmol/L Carbon Dioxide 31 H (22-30) mmol/L Anion Gap 10 mmol/L BUN 32 H (7-17) mg/dL Creatinine 1.54 H (0.52-1.04) mg/dL Est GFR (CKD-EPI)AfAm 35 (>60 ml/min/1.73 sqM) Est GFR (CKD-EPI)NonAf 30 (>60 ml/min/1.73 sqM) Glucose 121 H (74-99) mg/dL Plasma Lactic Acid Jose (0.7-2.0) mmol/L Calcium 9.1 (8.4-10.2) mg/dL Magnesium (1.6-2.3) mg/dL Total Bilirubin 0.9 (0.2-1.3) mg/dL AST 22 (14-36) U/L ALT 15 (9-52) U/L Alkaline Phosphatase 102 (38-126) U/L Troponin I (0.000-0.034) ng/mL NT-Pro-B Natriuret Pep pg/mL Total Protein 7.3 (6.3-8.2) g/dL Albumin 4.0 (3.5-5.0) g/dL 01/02/19 01/02/19 01/02/19 Range/Units 13:20 13:20 13:20 WBC (3.8-10.6) k/uL RBC (3.80-5.40) m/uL Hgb (11.4-16.0) gm/dL Hct (34.0-46.0) % MCV (80.0-100.0) fL MCH (25.0-35.0) pg MCHC (31.0-37.0) g/dL RDW (11.5-15.5) % Plt Count (150-450) k/uL Neutrophils % % Lymphocytes % % Monocytes % % Eosinophils % % Basophils % % Neutrophils # (1.3-7.7) k/uL Lymphocytes # (1.0-4.8) k/uL Monocytes # (0-1.0) k/uL Eosinophils # (0-0.7) k/uL Basophils # (0-0.2) k/uL PT (9.0-12.0) sec INR (<1.2) APTT (22.0-30.0) sec Sodium (137-145) mmol/L Potassium (3.5-5.1) mmol/L Chloride (98-107) mmol/L Carbon Dioxide (22-30) mmol/L Anion Gap mmol/L BUN (7-17) mg/dL Creatinine (0.52-1.04) mg/dL Est GFR (CKD-EPI)AfAm (>60 ml/min/1.73 sqM) Est GFR (CKD-EPI)NonAf (>60 ml/min/1.73 sqM) Glucose (74-99) mg/dL Plasma Lactic Acid Jose 1.1 (0.7-2.0) mmol/L Calcium (8.4-10.2) mg/dL Magnesium 2.0 (1.6-2.3) mg/dL Total Bilirubin (0.2-1.3) mg/dL AST (14-36) U/L ALT (9-52) U/L Alkaline Phosphatase (38-126) U/L Troponin I 0.013 (0.000-0.034) ng/mL NT-Pro-B Natriuret Pep pg/mL Total Protein (6.3-8.2) g/dL Albumin (3.5-5.0) g/dL 01/02/19 Range/Units 13:20 WBC (3.8-10.6) k/uL RBC (3.80-5.40) m/uL Hgb (11.4-16.0) gm/dL Hct (34.0-46.0) % MCV (80.0-100.0) fL MCH (25.0-35.0) pg MCHC (31.0-37.0) g/dL RDW (11.5-15.5) % Plt Count (150-450) k/uL Neutrophils % % Lymphocytes % % Monocytes % % Eosinophils % % Basophils % % Neutrophils # (1.3-7.7) k/uL Lymphocytes # (1.0-4.8) k/uL Monocytes # (0-1.0) k/uL Eosinophils # (0-0.7) k/uL Basophils # (0-0.2) k/uL PT (9.0-12.0) sec INR (<1.2) APTT (22.0-30.0) sec Sodium (137-145) mmol/L Potassium (3.5-5.1) mmol/L Chloride (98-107) mmol/L Carbon Dioxide (22-30) mmol/L Anion Gap mmol/L BUN (7-17) mg/dL Creatinine (0.52-1.04) mg/dL Est GFR (CKD-EPI)AfAm (>60 ml/min/1.73 sqM) Est GFR (CKD-EPI)NonAf (>60 ml/min/1.73 sqM) Glucose (74-99) mg/dL Plasma Lactic Acid Jose (0.7-2.0) mmol/L Calcium (8.4-10.2) mg/dL Magnesium (1.6-2.3) mg/dL Total Bilirubin (0.2-1.3) mg/dL AST (14-36) U/L ALT (9-52) U/L Alkaline Phosphatase (38-126) U/L Troponin I (0.000-0.034) ng/mL NT-Pro-B Natriuret Pep 2870 pg/mL Total Protein (6.3-8.2) g/dL Albumin (3.5-5.0) g/dL - EKG Data -: EKG Interpreted by Me (EKG shows A. fib with RVR rate 110, QRS 76, QTc 450) - Radiology Data Radiology results: report reviewed (Chest x-ray shows CHF with likely underlying infiltrate), image reviewed Disposition Clinical Impression: Atrial fibrillation with RVR, Acute pulmonary edema, Community acquired pneumonia, Systolic congestive heart failure Disposition: ADMITTED IP TO THIS HOSP Condition: Fair Is patient prescribed a controlled substance at d/c from ED?: No Referrals: Koko Gold MD [Primary Care Provider] - 1-2 days
[2019-01-02 14:20] LABS: INR 1.4 (<1.2); Partial Thromboplastin Time 23.8 sec (22.0-30.0); Prothrombin Time 14.2 sec (9.0-12.0)
[2019-01-02 14:24] LABS: Calcium 9.1 mg/dL (8.4-10.2); Total Bilirubin 0.9 mg/dL (0.2-1.3); Total Protein 7.3 g/dL (6.3-8.2)
--- NOTE | 2019-01-02 14:41 | XR ---
EXAMINATION TYPE: XR chest 2V DATE OF EXAM: 01/02/2019 COMPARISON: 08/03/2018 TECHNIQUE: PA and lateral views submitted. HISTORY: Difficulty breathing FINDINGS: Diffuse interstitial pattern with bilateral consolidation, pleural effusion and cardiomegaly. Atheros clerotic change of the aorta. Diffuse osteopenia with arthropathy of the shoulders. Hypertrophic and degenerative changes of the spine. IMPRESSION: 1. COPD with findings most typical of CHF. Underlying pneumonia not excluded.
[2019-01-02] MEDS ORDERED: AZITHROMYCIN 500 MG in SODIUM CHLORIDE 0.9% 250 ML IVPB STA (16:31)
[2019-01-02] MEDS ORDERED: PNEUMONIA PROTOCOL UTILIZED 1 EACH MISC PO PRN (16:31)
[2019-01-02] MEDS ORDERED: CALCIUM CARBONATE 500 MG CHEWABLE PO PRN (18:11)
[2019-01-02] MEDS ORDERED: BISACODYL 5 MG TABLET.DR PO PRN (18:11)
[2019-01-02] MEDS ORDERED: ALBUTEROL NEBULIZED 2.5 MG/3 ML INHALATION PRN (18:11)
[2019-01-02] MEDS ORDERED: NALOXONE 0.4 MG/ML 1 ML VIAL IV PRN (18:11)
[2019-01-02] MEDS ORDERED: ONDANSETRON 4 MG/2 ML VIAL IVP PRN (18:11)
[2019-01-02] MEDS ORDERED: BENZOCAINE/MENTHOL LOZENG 1 EACH LOZENGE MUCOUS MEM PRN (18:11)
[2019-01-02] MEDS ORDERED: ACETAMINOPHEN TAB 325 MG TAB PO PRN (18:11)
--- NOTE | 2019-01-02 18:19 | P.HPIM ---
History of Present Illness H&P Date: 01/02/19 Chief Complaint: shortness of breath Patient is an 88-year-old female with a past medical history of atrial fibrillation on chronic Coumadin therapy, diastolic congestive heart failure with ejection fraction 50% and pulmonary hypertension, GERD, and chronic kidney disease stage III with baseline creatinine of 1.5 who presented to the emergency department via EMS for shortness of breath. In the ER she underwent an extensive evaluation. On arrival she was found to be febrile with a temperature of 102.1, tachycardic with a pulse of 124, and hypertensive with a blood pressure 189/109. Initial laboratory analysis showed an elevated white blood cell count at 14.3, hemoglobin 10.7, INR 1.4, and creatinine 1.5. Chest x-ray demonstrated COPD with bilateral consolidations, pleural effusion and cardiomegaly. She was given a dose of Zithromax and Rocephin. IV Lasix was ordered. She was diagnosed with community-acquired pneumonia and acute exacerbation of CHF. Arrangements were made for admission. Patient seen and examined at bedside emergency department. She reports that yesterday she began having some shortness of breath. It is worse with exertion and better with rest. She had a cough several days ago but that seems resolved. She denies any wheezing, runny nose, stuffy nose, or sore throat. She does report some chills and riders last evening. She has had some nausea but no vomiting. She reports decreased urine output. She is very fatigued. She also reports gaining 3 pounds over the last week, increased lower extremity swelling, and palpitations when lying down flat. She currently lives at home with her daughter uses a cane or a walker for ambulation, and is open with home mental health counseling. She last saw Dr. Gold approximately one month ago. She did try using both her home nebulizer and inhaler but these did not relieve her shortness of breath. Review of Systems Pertinent positives and negatives as discussed in HPI, a complete review of systems was performed and all other systems are negative. Past Medical History Past Medical History: Atrial Fibrillation, Coronary Artery Disease (CAD), Heart Failure, GERD/Reflux, Hyperlipidemia, Hypertension, Thyroid Disorder Additional Past Medical History / Comment(s): Coronary artery disease, chronic atrial fibrillation, hypertension, hyperlipidemia, chronic stage II kidney disease with a baseline creatinine of around 1.5, hypothyroidism, glaucoma History of Any Multi-Drug Resistant Organisms: None Reported Past Surgical History: Cholecystectomy, Heart Catheterization With Stent, Hysterectomy, Orthopedic Surgery, Tonsillectomy Additional Past Surgical History / Comment(s): right knee replacement, carpal tunnel release, "thyroidectomy", fco feet -heel spurs, cataracts-lens implants. Past Anesthesia/Blood Transfusion Reactions: No Reported Reaction Date of Last Stent Placement:: 2013 Past Psychological History: No Psychological Hx Reported Smoking Status: Former smoker Past Alcohol Use History: None Reported Past Drug Use History: None Reported Additional History: Lives at home with her daughter with short-term memory loss, uses a cane and a walker, has a nebulizer. - Past Family History Daughter(s) Additional Family Medical History / Comment(s): short term memory loss Father Additional Family Medical History / Comment(s): denies family history of cancer or DM in her mother Medications and Allergies Home Medications Medication Instructions Recorded Confirmed Type ALPRAZolam [Xanax] 0.5 mg PO 12/03/17 01/02/19 History Ergocalciferol (Vitamin D2) 50,000 unit PO 12/03/17 01/02/19 History [Vitamin D2] Isosorbide Mononitrate ER [Imdur] 30 mg PO DAILY 12/03/17 01/02/19 History Latanoprost [Xalatan 0.005%] 1 drop BOTH EYES HS 12/03/17 01/02/19 History Levothyroxine Sodium 112 mcg PO DAILY 12/03/17 01/02/19 History Pravastatin Sodium [Pravachol] 40 mg PO HS 12/03/17 01/02/19 History Lisinopril [Zestril] 10 mg PO DAILY #30 tab 12/25/17 01/02/19 Rx Nitroglycerin Sl Tabs [Nitrostat] 0.4 mg SUBLINGUAL Q5M PRN 06/09/18 01/02/19 History Pantoprazole [Protonix] 40 mg PO DAILY 06/09/18 01/02/19 History Albuterol Inhaler [Ventolin Hfa 1 - 2 puff INHALATION RT-Q6H PRN 08/06/18 01/02/19 Rx Inhaler] #1 inhaler Furosemide [Lasix] 40 mg PO BID@0900,1600 #60 tab 08/06/18 01/02/19 Rx Ipratropium-Albuterol Nebulize 3 ml INHALATION RT-Q2H PRN #1 box 08/06/18 01/02/19 Rx [Duoneb 0.5 mg-3 mg/3 ml Soln] Spironolactone 50 mg PO DAILY #30 tablet 08/06/18 01/02/19 Rx Calcium Carb/Vitamin D3/Vit K1 1 tab PO DAILY 01/02/19 01/02/19 History [Citracal Soft Chew] Carvedilol [Coreg*] 12.5 mg PO DAILY 01/02/19 01/02/19 History Denosumab [Prolia] 60 mg SQ Q180D 01/02/19 01/02/19 History Potassium Chloride ER [K-Dur 10] 10 meq PO DAILY 01/02/19 01/02/19 History Warfarin [Coumadin] 2 mg PO HS 01/02/19 01/02/19 History Allergies Allergy/AdvReac Type Severity Reaction Status Date / Time brimonidine [From Simbrinza] Allergy Unknown Verified 01/02/19 13:48 brinzolamide [From Simbrinza] Allergy Unknown Verified 01/02/19 13:48 Physical Exam Osteopathic Statement: *. No significant issues noted on an osteopathic structural exam other than those noted in the History and Physical/Consult. Vitals: Vital Signs Temp Pulse Resp BP Pulse Ox 01/02/19 17:01 100.8 F H 91 16 117/62 97 01/02/19 14:52 101.7 F H 101 H 22 141/60 97 01/02/19 14:27 113 H 01/02/19 14:17 117 H 01/02/19 13:30 102.1 F H 124 H 16 189/109 93 L Intake and Output 01/02/19 01/02/19 01/02/19 06:59 14:59 22:59 Other: Weight 74.253 kg General: Ill appearing, no distress, appears at stated age, obese Derm: no unusual rashes/lesions no unusual ecchymoses, warm, dry Head: atraumatic, normocephalic, symmetric Eyes: EOMI, no lid lag, anicteric sclera, pupils equal round reactive to light ENT: Nose and ears atraumatic, no thrush, no pharyngeal erythema Neck: No thyromegaly, no cervical lymphadenopathy, trachea midline, supple Mouth: no lip lesion, mucus membranes moist Cardiovascular: S1S2 irreg, no murmur, positive posterior tibial pulse bilateral, 2+ edema, capillary refill less than 2 seconds Lungs: Rhonchi bilateral bases, no wheeze , no accessory muscle use Abdominal: soft, nontender to palpation, no guarding, no appreciable orga nomegaly, normal bowel sounds Ext: no gross muscle atrophy, muscle strength 5 out of 5 in all 4 extremities grossly, no contractures, Neuro: CN II-XI grossly intact, light touch intact all 4 extremities, finger to nose within normal limits, Psych: Alert, oriented, upset and anxious Results CBC & Chem 7: 01/02/19 13:20 01/02/19 13:20 Labs: Abnormal Lab Results - Last 24 Hours (Table) 01/02/19 01/02/19 01/02/19 Range/Units 13:20 13:20 13:20 WBC 14.3 H (3.8-10.6) k/uL Hgb 10.7 L (11.4-16.0) gm/dL Hct 32.9 L (34.0-46.0) % Neutrophils # 13.3 H (1.3-7.7) k/uL Lymphocytes # 0.5 L (1.0-4.8) k/uL PT 14.2 H (9.0-12.0) sec INR 1.4 H (<1.2) Carbon Dioxide 31 H (22-30) mmol/L BUN 32 H (7-17) mg/dL Creatinine 1.54 H (0.52-1.04) mg/dL Glucose 121 H (74-99) mg/dL Chest x-ray: report reviewed, image reviewed Thrombosis Risk Factor Assmnt - DVT/VTE Prophylaxis DVT/VTE Prophylaxis: Pharmacologic Prophylaxis ordered Assessment and Plan Assessment: Clinical pneumonia with sepsis -Rocephin, Zithromax -Breathing treatments, pulmonary hygiene -Repeat chest x-ray in a.m. -Sputum culture, blood cultures -Check influenza Acute exacerbation of diastolic congestive heart failure ejection fraction 55- 60% and moderate pulmonary hypertension -Lasix 40 mg IV push twice daily, continue oral spironolactone -Strict I's and O's, daily weights - coreg, lisinopril Chronic kidney disease stage III with creatinine at baseline - resume home lisinopril - hold oral lasix while on IV - Follow BMP closely - avoid additional nephrotoxic agents Hypertensive urgency - coreg, lisinopril, imdur - follow BP Atrial fibrillation with subtherapeutic Coumadin coagulopathy -Coumadin dosing per pharmacy Obesity - structure outpatient weight loss Chronic: Vertigo GERD Coronary artery disease status post stenting Dyslipidemia The patient is admitted with an anticipated greater than 2 midnight stay for evaluation of pneumonia with sepsis. Surrogate decision-maker: Deandre Ramachanrdan CODE STATUS:Full DVT prophylaxis: Coumadin Discussed with: Patient, nursing, ACRN, ED physician Anticipated discharge date: 2-[address]: home with home health and tele health A total of [65] minutes was spent on the care of this complex patient more than 50% of the time was spent in counseling and care coordination.
[2019-01-02] MEDS ORDERED: WARFARIN 2 MG TAB PO ONE (18:45)
[2019-01-02] MEDS: IPRATROPIUM-ALBUTEROL 3 ML NEB INHALATION SCH (19:57)
[2019-01-02] MEDS: FUROSEMIDE 10 MG/ML 4 ML VIAL IV SCH (21:00)
[2019-01-02] MEDS: PRAVASTATIN SODIUM 40 MG TAB PO SCH (21:07)
[2019-01-02] MEDS: ALPRAZolam 0.5 MG TAB PO SCH (21:08)
[2019-01-02] MEDS: SPIRONOLACTONE 25 MG TAB PO SCH (21:10)
[2019-01-02] MEDS: CARVEDILOL 12.5 MG TAB PO SCH (21:10)
[2019-01-02] MEDS: LATANOPROST 0.005% OPHTH DROPS 2.5 ML BTL BOTH EYES SCH (21:11)
[2019-01-03] MEDS: LEVOTHYROXINE 112 MCG TAB PO SCH (06:26)
[2019-01-03] MEDS: FUROSEMIDE 10 MG/ML 4 ML VIAL IV SCH ×2 (06:26→17:48)
[2019-01-03 07:09] LABS: INR 1.7 (<1.2); Prothrombin Time 16.6 sec (9.0-12.0)
[2019-01-03 07:10] LABS: HCT 28.9 % (34.0-46.0); HGB 9.6 gm/dL (11.4-16.0); Hypochromasia Slight; MCV 87.7 fL (80.0-100.0); Mean Platelet Volume 6.6; Platelet Count 157 k/uL (150-450); RDW 15.6 % (11.5-15.5); WBC 10.7 k/uL (3.8-10.6)
[2019-01-03 07:16] LABS: Calcium 8.4 mg/dL (8.4-10.2); Potassium 3.8 mmol/L (3.5-5.1)
[2019-01-03] MEDS: IPRATROPIUM-ALBUTEROL 3 ML NEB INHALATION SCH ×4 (08:41→20:28)
[2019-01-03] MEDS: CARVEDILOL 12.5 MG TAB PO SCH (08:47)
[2019-01-03] MEDS: LISINOPRIL 10 MG TAB PO SCH (08:47)
[2019-01-03] MEDS: PANTOPRAZOLE 40 MG TABLET PO SCH (08:47)
[2019-01-03] MEDS: ISOSORBIDE MONONITRATE ER 30 MG TAB.ER.24H PO SCH (08:47)
[2019-01-03] MEDS: POTASSIUM CHLORIDE ER 10 MEQ TAB.ER.PRT PO SCH (08:47)
[2019-01-03] MEDS: CALCIUM CARB-VIT D 500MG-200UN 1 EACH TAB PO SCH (08:47)
[2019-01-03] MEDS: SPIRONOLACTONE 25 MG TAB PO SCH (08:47)
--- NOTE | 2019-01-03 09:14 | XR ---
EXAMINATION TYPE: XR chest 2V DATE OF EXAM: 01/03/2019 COMPARISON: 01/02/2019 TECHNIQUE: PA and lateral views submitted. HISTORY: Cough FINDINGS: Bilateral consolidation and pleural effusion. Interstitial pattern noted. Heart enlarged. Atheroscler otic change aorta. Diffuse osteopenia. Hypertrophic and degenerative change of the spine. IMPRESSION: 1. Similar findings on the x-ray suspicious for COPD with CHF and bilateral pleural effusions. Underl aidee pneumonia not excluded.
[2019-01-03 12:37] VITALS: BMI 29.8
--- NOTE | 2019-01-03 15:42 | P.PN ---
Subjective Progress Note Date: 01/03/19 Patient was seen and examined at the bedside. The patient noted continued shortness of breath, only somewhat improved from yesterday. She denied chest pain, nausea, vomiting, diaphoresis, or dizziness. Objective - Vital Signs Vital signs: Vital Signs Temp 98 F 01/03/19 15:00 Pulse 71 01/03/19 15:00 Resp 16 01/03/19 15:00 BP 120/59 01/03/19 15:00 Pulse Ox 100 01/03/19 15:00 Intake & Output 01/02/19 01/03/19 01/03/19 18:59 06:59 18:59 Intake Total 100 100 Balance 100 100 Weight 74.253 kg 74 kg 74 kg Intake: Oral 100 100 Other: Voiding Method Bedside Commode # Voids 1 3 - Exam General: Non-toxic, in no acute distress, appears stated age, overweight HEENT: NC/AT, anicteric sclerae, moist conjunctiva, no lid-lag, PERRLA Cardiovascular: S1/S2 wnl, no murmurs, rubs, or gallops Lungs: Bilateral scattered rhonchi with some bibasilar rales, normal respiratory effort, no accessory muscle use Abdominal: Soft, non-tender, non-distended, no guarding, rebound, or rigidity Skin: Warm, dry Extremities: 2+ lower extremity pitting edema bilaterally Psychiatric: Alert and oriented to person, place and time, appropriate affect Neuro: CN II-XII grossly intact, Strength 5/5 in all 4 extremities, Speech int act, Sensation to light touch grossly intact throughout - Labs CBC & Chem 7: 01/03/19 06:20 01/03/19 06:20 Labs: Abnormal Lab Results - Last 24 Hours (Table) 01/02/19 01/03/19 01/03/19 Range/Units 22:52 01:13 06:20 WBC 10.7 H (3.8-10.6) k/uL RBC 3.30 L (3.80-5.40) m/uL Hgb 9.6 L (11.4-16.0) gm/dL Hct 28.9 L (34.0-46.0) % RDW 15.6 H (11.5-15.5) % PT (9.0-12.0) sec INR (<1.2) BUN (7-17) mg/dL Creatinine (0.52-1.04) mg/dL Troponin I 0.035 H* 0.038 H* (0.000-0.034) ng/mL 01/03/19 01/03/19 Range/Units 06:20 06:20 WBC (3.8-10.6) k/uL RBC (3.80-5.40) m/uL Hgb (11.4-16.0) gm/dL Hct (34.0-46.0) % RDW (11.5-15.5) % PT 16.6 H (9.0-12.0) sec INR 1.7 H (<1.2) BUN 36 H (7-17) mg/dL Creatinine 1.64 H (0.52-1.04) mg/dL Troponin I (0.000-0.034) ng/mL Assessment and Plan Plan: Sepsis secondary to community acquired pneumonia -Influenza testing negative -Follow-up sputum and blood cultures -Continue with azithromycin and ceftriaxone -Continue with DuoNeb's Acute diastolic congestive heart failure exacerbation -Continue with Lasix 40 mg IV push every 12 hourly -C/w Aldactone, Coreg, Lisinopril -C/w strict I's and O's, daily weights, fluid restriction CKD 3 -Monitor BMP -Avoid nephrotoxic agents -HTN -C/w home meds A-fib on Coumadin -As per pharmacy dosing DVT prophylaxis -IPCDs Discussed with: Patient Anticipated discharge date: 01/[address]: Home A total of 35 minutes was spent on the care of this complex patient more than 50% of the time was spent in counseling and care coordination.
[2019-01-03] MEDS: AZITHROMYCIN 500 MG TAB PO SCH (16:03)
[2019-01-03] MEDS ORDERED: WARFARIN 2 MG TAB PO ONE (18:00)
[2019-01-03] MEDS: ALPRAZolam 0.5 MG TAB PO SCH (20:50)
[2019-01-03] MEDS: PRAVASTATIN SODIUM 40 MG TAB PO SCH (20:50)
[2019-01-03] MEDS: LATANOPROST 0.005% OPHTH DROPS 2.5 ML BTL BOTH EYES SCH (20:51)
[2019-01-04] MEDS: FUROSEMIDE 10 MG/ML 4 ML VIAL IV SCH (05:17)
[2019-01-04] MEDS: LEVOTHYROXINE 112 MCG TAB PO SCH (05:17)
[2019-01-04 08:07] LABS: INR 2.3 (<1.2); Prothrombin Time 22.7 sec (9.0-12.0)
[2019-01-04 08:17] LABS: Calcium 8.5 mg/dL (8.4-10.2); Potassium 4.2 mmol/L (3.5-5.1)
[2019-01-04] MEDS: ISOSORBIDE MONONITRATE ER 30 MG TAB.ER.24H PO SCH (08:31)
[2019-01-04] MEDS: POTASSIUM CHLORIDE ER 10 MEQ TAB.ER.PRT PO SCH (08:31)
[2019-01-04] MEDS: CARVEDILOL 12.5 MG TAB PO SCH (08:31)
[2019-01-04] MEDS: CALCIUM CARB-VIT D 500MG-200UN 1 EACH TAB PO SCH (08:31)
[2019-01-04] MEDS: LISINOPRIL 10 MG TAB PO SCH (08:31)
[2019-01-04] MEDS: SPIRONOLACTONE 25 MG TAB PO SCH (08:31)
[2019-01-04] MEDS: PANTOPRAZOLE 40 MG TABLET PO SCH (08:31)
[2019-01-04] MEDS: IPRATROPIUM-ALBUTEROL 3 ML NEB INHALATION SCH ×4 (08:32→20:15)
[2019-01-04] MEDS ORDERED: FUROSEMIDE 10 MG/ML 4 ML VIAL IV STA (10:59)
--- NOTE | 2019-01-04 11:01 | ECHOF ---
Referral Reason:shortness of breath MEASUREMENTS -------- HEIGHT: 157.5 cm WEIGHT: 76.7 kg BP: RVIDd: 3.2 cm (< 3.3) IVSd: 1.3 cm (0.6 - 1.1) LVIDd: 3.8 cm (3.9 - 5.3) LVPWd: 1.6 cm (0.6 - 1.1) IVSs: 1.9 cm LVIDs: 2.0 cm LVPWs: 2.0 cm LAESV Index (A-L): 39.62 ml/m Ao Diam: 2.7 cm (2.0 - 3.7) AV Cusp: 1.4 cm (1.5 - 2.6) LA Diam: 4.7 cm (2.7 - 3.8) MV EXCURSION: 18.395 mm (> 18.000) MV EF SLOPE: 116 mm/s (70 - 150) EPSS: 0.4 cm AV maxP.30 mmHg AV meanP.76 mmHg AR PHT: 366 ms RAP: 5.00 mmHg RVSP: 43.77 mmHg TAPSE: 19.36 mm FINDINGS -------- Atrial fibrillation. This was a technically good study. The left ventricular size is normal. There is moderate concentric left ventricular hypertrophy. O verall left ventricular systolic function is normal with, an EF between 55 - 60 %. Left ventricular fillimg pressure cannot be estimated due to Atrial fibrillation. The right ventricle is normal in size. The right ventricular systolic function is normal. The left atrial size is normal. LA is moderately dilated 34-39 ml/m2 The right atrial size is normal. Aortic valve is trileaflet and is mildly thickened. There is mild aortic regurgitation. There is mild aortic stenosis present. Peak/mean gradient across the Aortic Valve is 17.30mmHg / 9.76mmHg. The mitral valve is normal. The mitral valve leaflets are mildly thickened. Mild mitral regurgita tion is present. The tricuspid valve appears structurally normal. Mild tricuspid regurgitation present. There is m ild pulmonary hypertension. There is no pulmonic regurgitation present. The aortic root size is normal. Normal inferior vena cava with normal inspiratory collapse consistent with estimated right atrial pre ssure of 5 mmHg. All pulmonary veins appear normal. The flow patterns, measured by Doppler, appear normal. There is no pericardial effusion. CONCLUSIONS -------- 1. Atrial fibrillation. 2. This was a technically good study. 3. The left ventricular size is normal. 4. There is moderate concentric left ventricular hypertrophy. 5. Overall left ventricular systolic function is normal with, an EF between 55 - 60 %. 6. Left ventricular fillimg pressure cannot be estimated due to Atrial fibrillation. 7. The right ventricle is normal in size. 8. The right ventricular systolic function is normal. 9. The left atrial size is normal. 10. LA is moderately dilated 34-39 ml/m2 11. The right atrial size is normal. 12. Aortic valve is trileaflet and is mildly thickened. 13. There is mild aortic regurgitation. 14. There is mild aortic stenosis present. 15. Peak/mean gradient across the Aortic Valve is 17.30mmHg / 9.76mmHg. 16. The mitral valve is normal. 17. The mitral valve leaflets are mildly thickened. 18. Mild mitral regurgitation is present. 19. The tricuspid valve appears structurally normal. 20. Mild tricuspid regurgitation present. 21. There is mild pulmonary hypertension. 22. There is no pulmonic regurgitation present. 23. The aortic root size is normal. 24. Normal inferior vena cava with normal inspiratory collapse consistent with estimated right atrial pressure of 5 mmHg. 25. All pulmonary veins appear normal. 26. The flow patterns, measured by Doppler, appear normal. 27. There is no pericardial effusion. ASSISTANT GENERAL MANAGER: Wanda Samayoa [facility]
--- NOTE | 2019-01-04 11:20 | P.CRDCN ---
History of Present Illness History of present illness: This is a pleasant 88-year-old female past medical history significant for coronary artery disease s/p PCI to the RCA, chronic persistent atrial fibrillation on continuous churn buttermaker anti-coagulation, chronic diastolic heart failure, hypertension and dyslipidemia. She follows in the office with Dr. Rao. We have been asked to see her in consultation for heart failure. She presented to the hospital 2 days ago after having increased shortness of breath, cough and fever at home. She had a fever on admission of 102. She was also thought to be in some mild heart failure on chest xray with an elevated proBNP. She was started on antibiotics and IV lasix. She has failed to show much improvement. She states yesterday she felt slightly better however overnight she was increasingly short of breath, could not sleep and had orthopnea. She is seen and examined sitting up at the side of the bed in no acute distress. Overall she feels quite tired and just overall unwell. She denies chest pain, dizziness or palpitations. Chest xray on admission suggestive of CHF with COPD and likely un derlying pneumonia. Repeat today appears to be worsening on the right lower lobe. Blood pressure 131/59 heart rate 72 afebrile and maintaining oxygen saturation on nasal cannula. Laboratory data reviewed, INR on admission 1.4 repeat today 2.3, WBC on admission 14.3 repeat today 10.7, sodium 139, potassium 4.2, creatinine 1.68 up from 1.54 on admission, magnesium 2.0, troponin less than 0.012, 0.035 and 0.038, porBNP on admission 2870. Negative for influenza. EKG on admission reveals atrial fibrillation with mildly rapid rate of 110. Current daily cardiac medications include lisinopril 10 mg daily, lasix 40 mg PO BID, imdur 30 mg daily, aldactone 50 mg daily pravastatin 40 mg daily, coreg 23. 5 mg daily and coumadin. Most recent echocardiogram obtained 07/2018 reveals preserved LV systolic function with EF 55-60%, mild-moderate AR, moderate TR and pulmonary hypertension with RVSP 56 mmHg. At the time of my exam: CONSTITUTIONAL: Denies fever. Denies chills. EYES: Denies blurred vision. Denies vision changes. Denies eye pain. EARS, NOSE, MOUTH & THROAT: Denies headache. Denies sore throat. Denies ear pain. CARDIOVASCULAR: Denies chest pain. Denies shortness of breath. Denies orthopnea. Denies PND. Denies palpitations. RESPIRATORY: Denies cough. GASTROINTESTINAL: Denies abdominal pain. Denies diarrhea. Denies constipation. Denies nausea. Denies vomiting. MUSCULOSKELETAL: Denies myalgias. INTEGUMENTARY: Denies pruitis. Denies rash. NEUROLOGIC: Denies numbness. Denies tingling. Denies weakness. PSYCHIATRIC: Denies anxiety. Denies depression. ENDOCRINE: Denies fatigue. Denies weight change. Denies polydipsia. Denies polyurina. GENITOURINARY: Denies burning, hematuria or urgency with micturation. HEMATOLOGIC: Denies history of anemia. Denies bleeding. GENERAL: This is a 88-year-old female in no apparent distress at the time of my examination. HEENT: Head is atraumatic, normocephalic. Pupils are equal, round. Sclerae anicteric. Conjunctivae are clear. Mucous membranes of the mouth are moist. Neck is supple. There is 1 cm of jugular venous distention. No carotid bruit is heard. LUNGS: Bibasilar rales, no wheezes or rhonchi. No chest wall tenderness is noted on palpation or with deep breathing. HEART: Irregular rate and rhythm with systolic ejection murmur at the left sternal border, no rubs or gallops. S1 and S2 heard. ABDOMEN: Soft, nontender. Bowel sounds are heard. No organomegaly noted. EXTREMITIES: Bilateral lower extremity 1+ pitting edema, right lower extremity anterior tibial region with significant erythema and no calf tenderness noted. VASCULAR: Radial and dorsalis pedis pulses palpated, no evidence of clubbing. NEUROLOGIC: Patient is awake, alert and oriented x3. ASSESSMENT Acute on chronic diastolic heart failure with underlying pneumonia Febrile illness Chronic persistent atrial fibrillation on usp anti-coagulation with co umadin Pulmonary hypertension Coronary artery disease s/p PCI RCA Hypertension Dyslipidemia PLAN Increase lasix to 80 mg IV BID, give an additional dose of 40 mg now. Follow renal function and electrolytes in the morning. Document accurate intake and output along with daily weights to assess diuresis. Check pro-calcitonin level to guide treatment. Consider pulmonary evaluation as the chest xray appears to be worsening since admission. Further recommendations to follow based on clinical course. Thank you kindly for this consultation. Nurse Practitioner note has been reviewed, I agree with a documented findings and plan of care. Patient was seen and examined. Past Medical History Past Medical History: Atrial Fibrillation, Coronary Artery Disease (CAD), Heart Failure, GERD/Reflux, Hyperlipidemia, Hypertension, Thyroid Disorder Additional Past Medical History / Comment(s): Coronary artery disease, chronic atrial fibrillation, hypertension, hyperlipidemia, chronic stage II kidney disease with a baseline creatinine of around 1.5, hypothyroidism, glaucoma History of Any Multi-Drug Resistant Organisms: None Reported Past Surgical History: Cholecystectomy, Heart Catheterization With Stent, Hysterectomy, Orthopedic Surgery, Tonsillectomy Additional Past Surgical History / Comment(s): right knee replacement, carpal tunnel release, "thyroidectomy", fco feet -heel spurs, cataracts-lens implants. Past Anesthesia/Blood Transfusion Reactions: No Reported Reaction Date of Last Stent Placement:: 2013 Past Psychological History: No Psychological Hx Reported Smoking Status: Former smoker Past Alcohol Use History: None Reported Past Drug Use History: None Reported - Past Family History Daughter(s) Additional Family Medical History / Comment(s): short term memory loss Father Additional Family Medical History / Comment(s): denies family history of cancer or DM in her mother Medications and Allergies Home Medications Medication Instructions Recorded Confirmed Type ALPRAZolam [Xanax] 0.5 mg PO HS 12/03/17 01/02/19 History Ergocalciferol (Vitamin D2) 50,000 unit PO SA 12/03/17 01/02/19 History [Vitamin D2] Isosorbide Mononitrate ER [Imdur] 30 mg PO DAILY 12/03/17 01/02/19 History Latanoprost [Xalatan 0.005%] 1 drop BOTH EYES HS 12/03/17 01/02/19 History Levothyroxine Sodium 112 mcg PO DAILY 12/03/17 01/02/19 History Pravastatin Sodium [Pravachol] 40 mg PO HS 12/03/17 01/02/19 History Lisinopril [Zestril] 10 mg PO DAILY #30 tab 12/25/17 01/02/19 Rx Nitroglycerin Sl Tabs [Nitrostat] 0.4 mg SUBLINGUAL Q5M PRN 06/09/18 01/02/19 History Pantoprazole [Protonix] 40 mg PO DAILY 06/09/18 01/02/19 History Albuterol Inhaler [Ventolin Hfa 1 - 2 puff INHALATION RT-Q6H PRN 08/06/18 01/02/19 Rx Inhaler] #1 inhaler Furosemide [Lasix] 40 mg PO BID@0900,1600 #60 tab 08/06/18 01/02/19 Rx Ipratropium-Albuterol Nebulize 3 ml INHALATION RT-Q2H PRN #1 box 08/06/18 01/02/19 Rx [Duoneb 0.5 mg-3 mg/3 ml Soln] Spironolactone 50 mg PO DAILY #30 tablet 08/06/18 01/02/19 Rx Calcium Carb/Vitamin D3/Vit K1 1 tab PO DAILY 01/02/19 01/02/19 History [Citracal Soft Chew] Carvedilol [Coreg*] 12.5 mg PO DAILY 01/02/19 01/02/19 History Denosumab [Prolia] 60 mg SQ Q180D 01/02/19 01/02/19 History Potassium Chloride ER [K-Dur 10] 10 meq PO DAILY 01/02/19 01/02/19 History Warfarin [Coumadin] 2 mg PO HS 01/02/19 01/02/19 History Allergies Allergy/AdvReac Type Severity Reaction Status Date / Time brimonidine [From Simbrinza] Allergy Unknown Verified 01/02/19 13:48 brinzolamide [From Simbrinza] Allergy Unknown Verified 01/02/19 13:48 Physical Exam Vitals: Vital Signs Temp Pulse Pulse Resp BP Pulse Ox 01/04/19 08:47 72 18 01/04/19 08:33 71 18 97 01/04/19 07:00 97.6 F 69 16 131/59 97 01/04/19 01:21 97.8 F 59 L 18 105/60 98 01/03/19 20:43 73 01/03/19 20:30 73 01/03/19 19:23 98.6 F 73 18 109/70 99 01/03/19 16:00 16 01/03/19 15:53 102 H 01/03/19 15:40 100 01/03/19 15:00 98 F 71 16 120/59 100 01/03/19 12:20 104 H 01/03/19 12:08 104 H Intake and Output 01/03/19 01/04/19 01/04/19 22:59 06:59 14:59 Intake Total 250 50 300 Balance 250 50 300 Intake: Intake, IV Titration 50 Amount cefTRIAXone 1 gm In 50 Sodium Chloride 0.9% 50 ml @ 100 mls/hr IVPB Q24H [facility] Rx#:[id number] Oral 250 300 Other: # Voids 1 2 Weight 77 kg Results 01/03/19 06:20 01/04/19 06:53 Coagulation 01/04/19 Range/Units 06:53 PT 22.7 H (9.0-12.0) sec Comprehensive Metabolic Panel 01/04/19 Range/Units 06:53 Sodium 139 (137-145) mmol/L Potassium 4.2 (3.5-5.1) mmol/L Chloride 101 (98-107) mmol/L Carbon Dioxide 29 (22-30) mmol/L BUN 40 H (7-17) mg/dL Creatinine 1.68 H (0.52-1.04) mg/dL Glucose 108 H (74-99) mg/dL Calcium 8.5 (8.4-10.2) mg/dL Current Medications Generic Name Dose Route Start Last Admin Trade Name Freq PRN Reason Stop Dose Admin Acetaminophen 650 mg 01/02/19 18:11 Tylenol Tab PO Q6HR PRN Mild Pain or Fever > 100.5 Albuterol Sulfate 2.5 mg 01/02/19 18:11 Ventolin Nebulized INHALATION RT-Q2H PRN Shortness Of Breath Or Wheezing Albuterol/Ipratropium 3 ml 01/02/19 20:00 01/04/19 08:32 Duoneb 0.5 Mg-3 Mg/3 Ml Soln INHALATION 3 ml RT-QID [facility] Administration Alprazolam 0.5 mg 01/02/19 21:00 01/03/19 20:50 Xanax PO 0.5 mg HS [facility] Administration Azithromycin 500 mg 01/03/19 16:00 01/03/19 16:03 Zithromax PO 500 mg Q24H [facility] Administration Benzocaine/Menthol 1 each 01/02/19 18:11 Cepacol Lozenge MUCOUS MEM Q4HR PRN Sore Throat Bisacodyl 5 mg 01/02/19 18:11 Dulcolax PO DAILY PRN Constipation Calcium Carbonate 1 each 01/03/19 09:00 01/04/19 08:31 Oscal 500+D PO 1 each DAILY [facility] Administration Calcium Carbonate/Glycine 1,000 mg 01/02/19 18:11 Tums PO Q4HR PRN Dyspepsia Carvedilol 12.5 mg 01/02/19 18:30 01/04/19 08:31 Coreg PO 12.5 mg AC-BRKFST [facility] Administration Furosemide 80 mg 01/04/19 21:00 Lasix IV Q12HR [facility] Furosemide 40 mg 01/04/19 10:59 Lasix IV 01/04/19 11:00 ONCE STA Ceftriaxone Sodium 1 gm/ 50 mls @ 100 mls/hr 01/03/19 16:00 01/03/19 16:03 Sodium Chloride IVPB 01/06/19 16:01 100 mls/hr Q24H [facility] Administration Isosorbide Mononitrate 30 mg 01/03/19 09:00 01/04/19 08:31 Imdur PO 30 mg DAILY [facility] Administration Latanoprost 1 drops 01/02/19 21:00 01/03/19 20:51 Xalatan 0.005% BOTH EYES 1 drops HS [facility] Administration Levothyroxine Sodium 112 mcg 01/03/19 06:30 01/04/19 05:17 Synthroid PO 112 mcg 0630 [facility] Administration Lisinopril 10 mg 01/03/19 09:00 01/04/19 08:31 Zestril PO 10 mg DAILY [facility] Administration Miscellaneous Information 1 each 01/02/19 16:31 Pneumonia Protocol Utilized PO ONCE PRN Per Protocol Miscellaneous Information 1 each 01/02/19 18:17 Coumadin Per Pharmacy MISCELLANE DIRECTED PRN Per Protocol Naloxone HCl 0.2 mg 01/02/19 18:11 Narcan IV Q2M PRN Opioid Reversal Ondansetron HCl 4 mg 01/02/19 18:11 Zofran IVP Q8HR PRN Nausea And Vomiting Pantoprazole Sodium 40 mg 01/03/19 07:30 01/04/19 08:31 Protonix PO 40 mg AC-BRKFST [facility] Administration Potassium Chloride 10 meq 01/03/19 09:00 01/04/19 08:31 K-Dur 10 PO 10 meq DAILY [facility] Administration Pravastatin Sodium 40 mg 01/02/19 21:00 01/03/19 20:50 Pravachol PO 40 mg HS [facility] Administration Spironolactone 50 mg 01/02/19 18:30 01/04/19 08:31 Aldactone PO 50 mg DAILY [facility] Administration Warfarin Sodium 2 mg 01/04/19 18:00 Coumadin PO 01/04/19 18:01 ONCE@1800 ONE Intake and Output 01/03/19 01/04/19 01/04/19 22:59 06:59 14:59 Intake Total 250 50 300 Balance 250 50 300 Intake: Intake, IV Titration 50 Amount cefTRIAXone 1 gm In 50 Sodium Chloride 0.9% 50 ml @ 100 mls/hr IVPB Q24H [facility] Rx#:[id number] Oral 250 300 Other: # Voids 1 2 Weight 77 kg 01/03/19 06:20 01/04/19 06:53
--- NOTE | 2019-01-04 11:53 | XR ---
EXAMINATION TYPE: XR chest 2V DATE OF EXAM: 01/04/2019 COMPARISON: 01/03/2019 HISTORY: Shortness of breath TECHNIQUE: Frontal and lateral views of the chest are obtained. FINDINGS: Slightly worsening small bilateral layering pleural effusions, right greater than left. Mo derate interstitial edema and cephalization. Increasing confluence of airspace disease of the right h ilum. Cardiomediastinal silhouette is enlarged and partially obscured. Hiatal hernia seen on the late ral. Diffuse osseous demineralization, extensive atherosclerosis of the thoracic aorta and moderate d egenerative changes of the spine. IMPRESSION: 1. Increasing small bilateral pleural effusions and interstitial edema, likely on the basis of cardio genic fluid overload. 2. Increasing right perihilar opacity may be on the basis of confluent pulmonary edema or atelectasis with less likely consideration for developing pneumonia.
--- NOTE | 2019-01-04 12:04 | P.PN ---
Subjective Progress Note Date: 01/04/19 Principal diagnosis: The patient is a 88-year-old female with a past medical history of chronic A. fib on Coumadin therapy, diastolic CHF with last known ejection fraction of 50%, and pulmonary hypertension, GERD, chronic kidney disease stage III who is admitted for dyspnea of multifactorial etiology likely secondary to pneumonia superimposed on acute Diastolic CHF exacerbation after she presented with sepsis with initial checks x-ray showing COPD with bilateral consolidations or pleural effusion cardiomegaly and was noted to be febrile with a temperature of 102.1 and a leukocytosis of 14.3, NT proBNP 2870 And troponins less than 0.012, 0.035 and 0.038. The patient was started on empiric IV antibiotics with Rocephin and azithromycin and placed on supplemental oxygen at 2L. she was placed on IV diuretics with Lasix and cardiology and pulmonary consultation Patient seen and examined at bedside, patient has been afebrile since 01/02. Leukocytosis also resolving, but patient continues to complain of worsening shortness of breath, also has lower extremity and pedal edema. Nursing reports the patient is not as active today current supplement oxygen at 2 L. Patient reporting history of asthma, but denies any wheezes Objective - Vital Signs Vital signs: Vital Signs Temp 97.6 F 01/04/19 07:00 Pulse 69 01/04/19 07:00 Resp 16 01/04/19 07:00 BP 131/59 01/04/19 07:00 Pulse Ox 97 01/04/19 07:00 Intake & Output 01/03/19 01/04/19 01/04/19 18:59 06:59 18:59 Intake Total 100 300 Balance 100 300 Weight 74 kg 77 kg Intake: Intake, IV Titration 50 Amount cefTRIAXone 1 gm In 50 Sodium Chloride 0.9% 50 ml @ 100 mls/hr IVPB Q24H [facility] Rx#:[id number] Oral 100 250 Other: # Voids 3 2 - Exam Constitutional: No acute distress, conversant, pleasant Eyes: Anicteric sclerae, moist conjunctiva, no lid-lag, PERRLA ENMT: NC/AT,Oropharynx clear, no erythema, exudates Neck:Supple, FROM, no masses, or JVD, No carotid bruits; No thyromegaly Lungs: Diminished in the bases, right-sided basilar Rales greater than left, on 5 L nasal cannula Cardiovascular: Heart regular in rate and rhythm, No murmurs, gallops, or rubs, +2 peripheral edema Abdominal: Soft Nontender, nom distended, no guarding, no rebound or rigidity, Normoactive bowel sounds No hepatomegaly, No splenomegaly, No palpable mass No abdominal wall hernia noted Skin: Normal temperature, tone, texture, turgor, No induration No subcutaneous nodules, No rash, lesions, No ulcers Extremities:No digital cyanosis No clubbing, Pedal pulses intact and symmetrical Radial pulses intact and symmetrical Normal gait and station, No calf tenderness Psychiatric: Alert and oriented to person, place and time, Appropriate affect Intact judgement Neuro: Muscles Strength 5/5 in all 4 extremities, Sensation to light touch grossly present throughout, Cranial nerves II-XII grossly intact. No focal sensory deficits - Labs CBC & Chem 7: 01/03/19 06:20 01/04/19 06:53 Labs: Microbiology - Last 24 Hours (Table) 01/02/19 13:20 Blood Culture - Preliminary Blood No Growth after 24 hours Assessment and Plan Plan: dyspnea * Multifactorial secondary to pneumonia superimposed on underlying acute on chronic diastolic CHF exacerbation * Continue supplemental oxygen and breathing treatments * Continue current antibiotics and diuresis Sepsis secondary to community acquired pneumonia * Chest x-ray from yesterday showing suspicion for COPD with CHF with bilateral pleural effusions underlying pneumonia not excluded -Influenza testing negative -Follow-up sputum and blood cultures -Continue with azithromycin and ceftriaxone -Continue with DuoNeb's Acute on chronic diastolic congestive heart failure exacerbation -We'll plan to increase Lasix to 80 mg IV push every 12 hourly -C/w Aldactone, Coreg, Lisinopril -C/w strict I's and O's, daily weights, fluid restriction * repeat echocardiogram during this hospitalization and consult cardiology CKD 3 -Monitor BMP -Avoid nephrotoxic agents Coronary artery disease s/p PCI RCA * Likely stable troponin elevation likely secondary to sepsis/febrile illness in the setting of underlying CKD III -HTN -C/w home meds A-fib on Coumadin -As per pharmacy dosing DVT prophylaxis -IPCDs Discussed with: Patient Anticipated discharge date: 01/[address]: Home A total of 35 minutes was spent on the care of this complex patient more than 50% of the time was spent in counseling and care coordination.
[2019-01-04] MEDS: AZITHROMYCIN 500 MG TAB PO SCH (16:01)
[2019-01-04] MEDS ORDERED: WARFARIN 2 MG TAB PO ONE (18:00)
--- NOTE | 2019-01-04 21:38 | CDI ---
Documentation Clarification Form Date: 01/04/2019 9:32:40 PM From: Libertad Keith RN, CCDS Admit Date: 01/02/2019 4:31:00 PM Patient Name: Lolly Simon Visit Number: [id number] ATTENTION: The Clinical Documentation Specialists (CDI) and [facility] Coding Staff appreciate your assistance in clarifying documentation. Please respond to the clarification below the line at the bottom and electronically sign. The CDI & [facility] Coding staff will review the response and follow-up if needed. Please note: Queries are made part of the Legal Health Record. If you have any questions, please contact the author of this message via ITS. Dr. Shivam Rosario declining Hgb and Hct have been noted and lacks specificity to accurately reflect your patients severity of condition and clarification is needed. History/Risk Factors: Denied Hx of anemia CHF, CKD Stage 3, acute on chronic diastolic CHF, Sepsis, HTN, Chronic persistent Atrial Fib on home Coumadin Clinical indicators: Hemoglobin: 10.7/9.6 Hematocrit: 32.9/28.9 Treatment: Monitoring labs am daily 1L IVF bolus In order to capture the severity of condition, please clarify the clinical significance of the declining Hgb and Hct and etiology if known: Unable to determine Other, please specify (Last Revision: December 2016) MTDD
[2019-01-04] MEDS: FUROSEMIDE 10 MG/ML 10 ML VIAL IV SCH (22:21)
[2019-01-04] MEDS: PRAVASTATIN SODIUM 40 MG TAB PO SCH (22:22)
[2019-01-04] MEDS: ALPRAZolam 0.5 MG TAB PO SCH (22:22)
[2019-01-04] MEDS: LATANOPROST 0.005% OPHTH DROPS 2.5 ML BTL BOTH EYES SCH (22:22)
[2019-01-05 06:50] LABS: Basophils % (A) 0 %; Eosinophils # (A) 0.4 k/uL (0-0.7); Eosinophils % (A) 7 %; HCT 30.8 % (34.0-46.0); HGB 9.5 gm/dL (11.4-16.0); Hypochromasia Slight; Lymphocytes # (A) 0.8 k/uL (1.0-4.8); Lymphocytes % (A) 15 %; MCHC 30.7 g/dL (31.0-37.0); MCV 87.9 fL (80.0-100.0); Mean Platelet Volume 6.5; Monocytes # (A) 0.3 k/uL (0-1.0); Monocytes % (A) 6 %; Neutrophils # (A) 3.9 k/uL (1.3-7.7); Neutrophils % (A) 69 %; Platelet Count 156 k/uL (150-450); RBC 3.51 m/uL (3.80-5.40); RDW 15.1 % (11.5-15.5); WBC 5.6 k/uL (3.8-10.6)
[2019-01-05 06:54] LABS: INR 3.3 (<1.2); Prothrombin Time 31.6 sec (9.0-12.0)
[2019-01-05 07:01] LABS: Calcium 9.2 mg/dL (8.4-10.2); Potassium 4.6 mmol/L (3.5-5.1)
[2019-01-05] MEDS: IPRATROPIUM-ALBUTEROL 3 ML NEB INHALATION SCH ×5 (07:44→19:18)
[2019-01-05] MEDS: SPIRONOLACTONE 25 MG TAB PO SCH (08:35)
[2019-01-05] MEDS: ISOSORBIDE MONONITRATE ER 30 MG TAB.ER.24H PO SCH (08:35)
[2019-01-05] MEDS: POTASSIUM CHLORIDE ER 10 MEQ TAB.ER.PRT PO SCH (08:35)
[2019-01-05] MEDS: LISINOPRIL 10 MG TAB PO SCH (08:35)
[2019-01-05] MEDS: CALCIUM CARB-VIT D 500MG-200UN 1 EACH TAB PO SCH (08:35)
[2019-01-05] MEDS: LEVOTHYROXINE 112 MCG TAB PO SCH (08:35)
[2019-01-05] MEDS: CARVEDILOL 12.5 MG TAB PO SCH (08:36)
[2019-01-05] MEDS: FUROSEMIDE 10 MG/ML 10 ML VIAL IV SCH ×2 (08:36→20:11)
[2019-01-05] MEDS: PANTOPRAZOLE 40 MG TABLET PO SCH (08:36)
--- NOTE | 2019-01-05 12:30 | P.PN ---
Subjective Progress Note Date: 01/05/19 Principal diagnosis: Congestive heart failure This is an 88-year-old female patient with a past medical history significant for coronary artery disease and prior stenting of the RCA, chronic persistent atrial fibrillation on anticoagulation, hypertension, dyslipidemia, was admitted to the hospital with acute exacerbation of congestive heart failure secondary to diastolic dysfunction with possible underlying pneumonia. On follow-up with the patient today, she stated that the shortness of breath is better but it did not results. She still have bilateral lower extremities edema on examination. The kidney function continues to be stable. She continues to be on Lasix IV. Objective - Vital Signs Vital signs: Vital Signs Temp 97.9 F 01/05/19 07:00 Pulse 74 01/05/19 11:40 Resp 16 01/05/19 07:55 BP 128/75 01/05/19 07:00 Pulse Ox 96 01/05/19 07:45 Intake & Output 01/04/19 01/05/19 01/05/19 18:59 06:59 18:59 Intake Total 300 480 Output Total 400 Balance 300 80 Weight 75.2 kg Intake: Oral 300 480 Output: Urine 400 Other: Voiding Method Bedside Commode Bedside Commode # Voids 2 - Constitutional General appearance: Present: no acute distress - Respiratory Respiratory: bilateral: diminished - Cardiovascular Rhythm: irregularly irregular Heart sounds: normal: S1, S2 - Labs CBC & Chem 7: 01/05/19 06:07 01/05/19 06:07 Labs: Abnormal Lab Results - Last 24 Hours (Table) 01/05/19 01/05/19 01/05/19 Range/Units 06:07 06:07 06:07 RBC 3.51 L (3.80-5.40) m/uL Hgb 9.5 L (11.4-16.0) gm/dL Hct 30.8 L (34.0-46.0) % MCHC 30.7 L (31.0-37.0) g/dL Lymphocytes # 0.8 L (1.0-4.8) k/uL PT 31.6 H (9.0-12.0) sec INR 3.3 H (<1.2) Chloride 97 L (98-107) mmol/L Carbon Dioxide 35 H (22-30) mmol/L BUN 40 H (7-17) mg/dL Creatinine 1.68 H (0.52-1.04) mg/dL Microbiology - Last 24 Hours (Table) 01/02/19 13:20 Blood Culture - Preliminary Blood No Growth after 48 hours Assessment and Plan Assessment: Assessment #1 acute exacerbation of diastolic heart failure #2 possible underlying pneumonia #3 chronic atrial fibrillation was controlled heart rate #4 coronary artery disease Plan #1 continue the current dose of Lasix IV #2 continue monitoring the kidney function and electrolytes #3 follow-up with the patient
--- NOTE | 2019-01-05 12:38 | P.PN ---
Subjective Progress Note Date: 01/05/19 Principal diagnosis: The patient is a 88-year-old female with a past medical history of chronic A. fib on Coumadin therapy, diastolic CHF with last known ejection fraction of 50%, and pulmonary hypertension, GERD, chronic kidney disease stage III who is admitted for dyspnea of multifactorial etiology likely secondary to pneumonia superimposed on acute Diastolic CHF exacerbation after she presented with sepsis with initial checks x-ray showing COPD with bilateral consolidations or pleural effusion cardiomegaly and was noted to be febrile with a temperature of 102.1 and a leukocytosis of 14.3, NT proBNP 2870 And troponins less than 0.012, 0.035 and 0.038. The patient was started on empiric IV antibiotics with Rocephin and azithromycin and placed on supplemental oxygen at 2L. she was placed on IV diuretics with Lasix and cardiology and pulmonary consultation Patient seen and examined in follow-up, jose elias Ramachandran at bedside. Patient reporting some shortness of breath overnight, currently ambulating back with a walker from the restroom without any oxygen. Complaining of fatigue, apparently had 400 mL out earlier this morning. The patient continues to be afebrile and is diuresing well Objective - Vital Signs Vital signs: Vital Signs Temp 97.9 F 01/05/19 07:00 Pulse 74 01/05/19 11:40 Resp 16 01/05/19 07:55 BP 128/75 01/05/19 07:00 Pulse Ox 96 01/05/19 07:45 Intake & Output 01/04/19 01/05/19 01/05/19 18:59 06:59 18:59 Intake Total 300 480 Output Total 400 Balance 300 80 Weight 75.2 kg Intake: Oral 300 480 Output: Urine 400 Other: Voiding Method Bedside Commode Bedside Commode # Voids 2 - Exam Constitutional: No acute distress, conversant, pleasant Eyes: Anicteric sclerae, moist conjunctiva, no lid-lag, PERRLA ENMT: NC/AT,Oropharynx clear, no erythema, exudates Neck:Supple, FROM, no masses, or JVD, No carotid bruits; No thyromegaly Lungs: Diminished in the bases, right-sided basilar Rales greater than left, on 5 L nasal cannula Cardiovascular: Heart regular in rate and rhythm, No murmurs, gallops, or rubs, +2 peripheral edema Abdominal: Soft Nontender, nom distended, no guarding, no rebound or rigidity, Normoactive bowel sounds No hepatomegaly, No splenomegaly, No palpable mass No abdominal wall hernia noted Skin: Normal temperature, tone, texture, turgor, No induration No subcutaneous nodules, No rash, lesions, No ulcers Extremities:No digital cyanosis No clubbing, Pedal pulses intact and symmetrical Radial pulses intact and symmetrical Normal gait and station, No calf tenderness Psychiatric: Alert and oriented to person, place and time, Appropriate affect Intact judgement Neuro: Muscles Strength 5/5 in all 4 extremities, Sensation to light touch grossly present throughout, Cranial nerves II-XII grossly intact. No focal sens ory deficits - Labs CBC & Chem 7: 01/05/19 06:07 01/05/19 06:07 Labs: Abnormal Lab Results - Last 24 Hours (Table) 01/05/19 01/05/19 01/05/19 Range/Units 06:07 06:07 06:07 RBC 3.51 L (3.80-5.40) m/uL Hgb 9.5 L (11.4-16.0) gm/dL Hct 30.8 L (34.0-46.0) % MCHC 30.7 L (31.0-37.0) g/dL Lymphocytes # 0.8 L (1.0-4.8) k/uL PT 31.6 H (9.0-12.0) sec INR 3.3 H (<1.2) Chloride 97 L (98-107) mmol/L Carbon Dioxide 35 H (22-30) mmol/L BUN 40 H (7-17) mg/dL Creatinine 1.68 H (0.52-1.04) mg/dL Microbiology - Last 24 Hours (Table) 01/02/19 13:20 Blood Culture - Preliminary Blood No Growth after 48 hours Assessment and Plan Plan: dyspnea * Multifactorial secondary to pneumonia superimposed on underlying acute on chronic diastolic CHF exacerbation * Continue supplemental oxygen and breathing treatments * Continue current antibiotics and diuresis * Chest x-ray shows increasing small bilateral pleural effusions and interstitial edema suggestive of cardiogenic fluid overload with increasing right perihilar opacity, pulmonary edema versus atelectasis versus pneumonia Sepsis secondary to community acquired pneumonia -Influenza testing negative -Follow-up sputum and blood cultures -Continue with azithromycin and ceftriaxone -Continue with DuoNeb's Acute on chronic diastolic congestive heart failure exacerbation -Continue Lasix 80 mg IV push every 12 hourly -C/w Aldactone, Coreg, Lisinopril -C/w strict I's and O's, daily weights, fluid restriction * Echocardiogram showed preserved LVEF of 55-60% with moderately dilated left atrium CKD 3 -Monitor BMP -Avoid nephrotoxic agents Anemia * Iron studies ordered * Likely secondary to anemia of chronic kidney disease Coronary artery disease s/p PCI RCA * Likely stable troponin elevation likely secondary to sepsis/febrile illness in the setting of underlying CKD III -HTN -C/w home meds A-fib on Coumadin -As per pharmacy dosing DVT prophylaxis -IPCDs Discussed with: Patient Anticipated discharge date: 01/[address]: Home A total of 35 minutes was spent on the care of this complex patient more than 50% of the time was spent in counseling and care coordination.
--- NOTE | 2019-01-05 13:12 | CONS ---
CONSULTATION This is a pulmonary/critical care consultation. DATE OF SERVICE: January 05, 2019. This is an 88-year-old female who apparently presents to the emergency room via EMS for difficulty breathing. She also has some lower extremity edema and cellulitis. She apparently had not been feeling well for a number of days prior to admission. She apparently had a fever in the emergency room. She was unaware of the temperature elevation at home. No productive cough. No chest pain or pressure. No abdominal discomfort. The patient was admitted back on January 02. We were just consulted today. Her primary doctor is Dr. Gold. Looking at her chest x-ray, her troponin levels and her N-terminal proBNP it looks like she may have heart failure. I know they have been trying to sell a story of possible pneumonia. That may be going on as well, but chest x-rays in my opinion and her exam in general are more consistent with CHF. The patient is currently resting comfortably. As I mentioned, she has been in the hospital since January 02. She is on a couple L of O2. CURRENT MEDICATIONS: Extensive and includes: Xanax, vitamin D2, Imdur, eyedrops, levothyroxine, Pravachol, sublingual nitroglycerin, Protonix, calcium carbonate, Prolia, Coreg, potassium chloride, Coumadin, lisinopril, albuterol inhaler, Lasix, updrafts with albuterol and Atrovent and Aldactone. ALLERGIES: INCLUDE SIMBRINZA. PAST MEDICAL HISTORY: Includes atrial fibrillation, CAD, heart failure, GERD, hyperlipidemia, hypertension and hypothyroidism. She also apparently has history of chronic bronchial asthma. Other medical problems include stage 2 chronic kidney disease, and glaucoma. SURGICAL HISTORY: Includes cholecystectomy, heart catheterization with stent, hysterectomy, tonsillectomy, right knee replacement, carpal tunnel release, thyroidectomy, bilateral heel spur surgery, cataract surgery with lens implant. SOCIAL HISTORY: Positive for previous tobacco use. She is not able to really quantitate how much she smoked, but is telling she has smoked for a long time. No alcohol use or illicit drug use. FAMILY HISTORY: Positive for daughter with short-term memory loss and a father and mother both of which were relatively healthy without any cardiac disease, cancer or diabetes. REVIEW OF SYSTEMS: CONSTITUTIONAL weakness and fever. NEUROLOGIC negative. HEENT negative. CARDIOVASCULAR negative. PULMONARY: Shortness of breath. GI negative. negative. RHEUMATOLOGIC negative. IMMUNOLOGIC negative. ENDOCRINOLOGIC negative. DERMATOLOGIC negative. PHYSICAL EXAMINATION: VITAL SIGNS: Current vital signs are reviewed. Temperature is 97.9. Heart rate 68, respiratory rate 16, blood pressure 128/75, mean 92, 2 L saturation 96%. GENERAL: Appears in no acute distress. Lying flat in bed. No respiratory distress. No audible wheezing. No use of accessory muscles. HEENT examination is grossly unremarkable. Mucous membranes are moist. Nasal O2 noted. NECK: Supple. Full range of motion. No adenopathy or thyromegaly. Neck veins are flat. CARDIOVASCULAR examination reveals regular rhythm and rate. Heart rate about 75 beats per minute. S1, S2 normal. Heart sounds are distant. LUNGS: Some bibasilar crackles. A few scattered rhonchi. No wheezes. ABDOMEN: Soft. Bowel sounds are heard. EXTREMITIES are intact. Some mild edema. Some chronic venous stasis changes noted as well. No cyanosis or clubbing. SKIN: Without rash. NEUROLOGIC examination is brief but nonfocal. LAB DATA: Reviewed. White count 5.6, hemoglobin 9.5, hematocrit 30.8, platelet count 186,000. PT/INR were 31.6 and 3.3. Her last D-dimer was 2.72. Sodium 139, potassium 4.6, chloride 97, CO2 35, BUN and creatinine were 40 and 1.68. Her troponins were 0.035 and 0.038. Her N-terminal proBNP was 2870. Influenza studies were negative. The patient had 3 chest x-rays. All chest x-rays in my opinion seem to show fluid overload. She has bilateral effusions. She has some fluid in the minor fissure. There is some cephalization. Microbiology include blood cultures are negative. Medications are reviewed. ASSESSMENT: 1. Shortness of breath, most likely related to underlying congestive heart failure rather than pneumonia. 2. Cannot exclude pulmonary infection/pneumonia in this patient. 3. Previous history of tobacco use. 4. History of asthma. 5. History of atrial fibrillation. 6. History of coronary artery disease. 7. History of gastroesophageal reflux disease. 8. History of hyperlipidemia. 9. History of hypertension. 10.Hypothyroidism. 11.Stage 2 chronic kidney disease. 12.Glaucoma. PLAN: Please see my orders. Medications are reviewed. Additional recommendations and suggestions are forthcoming. We will make sure the patient is on appropriate medications include primarily medications for fluid overload/CHF. Antibiotics are reasonable. We will continue to follow. Additional recommendations and suggestions are forthcoming. MMODL / IJN: [id number] /
[2019-01-05] MEDS: AZITHROMYCIN 500 MG TAB PO SCH (16:57)
[2019-01-05] MEDS ORDERED: WARFARIN 0.5 MG TAB PO ONE (18:00)
[2019-01-05] MEDS: ALPRAZolam 0.5 MG TAB PO SCH (20:10)
[2019-01-05] MEDS: PRAVASTATIN SODIUM 40 MG TAB PO SCH (20:10)
[2019-01-05] MEDS: LATANOPROST 0.005% OPHTH DROPS 2.5 ML BTL BOTH EYES SCH (20:11)
[2019-01-06] MEDS: LEVOTHYROXINE 112 MCG TAB PO SCH (05:21)
[2019-01-06 06:37] LABS: INR 3.4 (<1.2)
[2019-01-06] MEDS: SPIRONOLACTONE 25 MG TAB PO SCH (08:30)
[2019-01-06] MEDS: FUROSEMIDE 10 MG/ML 10 ML VIAL IV SCH ×2 (08:30→20:38)
[2019-01-06] MEDS: POTASSIUM CHLORIDE ER 10 MEQ TAB.ER.PRT PO SCH (08:31)
[2019-01-06] MEDS: PANTOPRAZOLE 40 MG TABLET PO SCH (08:31)
[2019-01-06] MEDS: CALCIUM CARB-VIT D 500MG-200UN 1 EACH TAB PO SCH (08:31)
[2019-01-06] MEDS: LISINOPRIL 10 MG TAB PO SCH (08:31)
[2019-01-06] MEDS: ISOSORBIDE MONONITRATE ER 30 MG TAB.ER.24H PO SCH (08:31)
[2019-01-06] MEDS: CARVEDILOL 12.5 MG TAB PO SCH (08:31)
[2019-01-06] MEDS: IPRATROPIUM-ALBUTEROL 3 ML NEB INHALATION SCH ×4 (08:57→20:28)
--- NOTE | 2019-01-06 09:09 | P.PN ---
Subjective Progress Note Date: 01/06/19 Principal diagnosis: Congestive heart failure This is an 88-year-old female patient with a past medical history significant for coronary artery disease and prior stenting of the RCA, chronic persistent atrial fibrillation on anticoagulation, hypertension, dyslipidemia, was admitted to the hospital with acute exacerbation of congestive heart failure secondary to diastolic dysfunction with possible underlying pneumonia. On follow-up with the patient today, 01/06/2019, the patient continues to have shortness of breath. On physical examination she does have diminished breathing sounds over the right lung base. The chest x-ray is in process to be done. Meanwhile she continues to be on Lasix IV at 80 mg twice a day. The creatinine continues to be stable. Pulmonary service was consulted to see the patient. Objective - Vital Signs Vital signs: Vital Signs Temp 98.2 F 01/06/19 07:00 Pulse 65 01/06/19 09:08 Resp 16 01/06/19 07:00 BP 142/88 01/06/19 07:00 Pulse Ox 94 L 01/06/19 07:00 Intake & Output 01/05/19 01/06/19 01/06/19 18:59 06:59 18:59 Intake Total 480 425 Output Total 400 750 Balance 80 -325 Weight 73.5 kg Intake: Intake, IV Titration 50 Amount cefTRIAXone 1 gm In 50 Sodium Chloride 0.9% 50 ml @ 100 mls/hr IVPB Q24H [facility] Rx#:[id number] Oral 480 375 Output: Urine 400 750 Other: Voiding Method Bedside Commode Bedside Commode # Voids 2 - Constitutional General appearance: Present: no acute distress - Respiratory Respiratory: right: diminished - Cardiovascular Heart sounds: normal: S1, S2 - Labs CBC & Chem 7: 01/05/19 06:07 01/05/19 06:07 Labs: Abnormal Lab Results - Last 24 Hours (Table) 01/06/19 Range/Units 06:09 PT 33.0 H (9.0-12.0) sec INR 3.4 H (<1.2) Microbiology - Last 24 Hours (Table) 01/02/19 13:20 Blood Culture - Preliminary Blood No Growth after 72 hours Assessment and Plan Assessment: Assessment #1 acute exacerbation of diastolic heart failure #2 possible underlying pneumonia #3 chronic atrial fibrillation was controlled heart rate #4 coronary artery disease Plan #1 continue the current dose of Lasix IV #2 continue monitoring the kidney function and electrolytes #3 follow-up on the chest x-ray later on today #4 follow-up with the patient
--- NOTE | 2019-01-06 10:21 | XR ---
EXAMINATION TYPE: XR chest 2V DATE OF EXAM: 01/06/2019 HISTORY: chf v pna. REFERENCE: Previous study dated 01/04/2019. FINDINGS: The lungs are overinflated. The heart is enlarged. There is vascular congestion and pulmona ry edema. There is improved aeration at the right lung base. There are small, bilateral effusions. IMPRESSION: 1. COPD. 2. IMPROVING CHANGES OF PULMONARY EDEMA.
--- NOTE | 2019-01-06 14:04 | PN ---
PROGRESS NOTE DATE OF SERVICE: 01/06/2019 This is a very pleasant 88-year-old female who we saw yesterday in consultation. We thought her shortness of breath was most likely related to underlying congestive heart failure. I still feel that way. I doubt that she has significant pneumonia or pulmonary infection. Pulmonary infection though such as pneumonia could not be excluded in this patient. I believe her clinical picture, exam, x-rays, etc. are more consistent with fluid overload. She does have a previous history of tobacco use, she has a history of asthma, atrial fibrillation, CAD, GERD, hyperlipidemia, hypertension, hypothyroidism, stage 2 chronic kidney disease, and glaucoma. Anyway, she does seem to be better. Her chest x-ray does show improving fluid overload. She herself feels improved. She states that she feels like she has more breath. She is not coughing. She is not producing any phlegm. Her lower extremity edema is improved. PHYSICAL EXAMINATION: Current vital signs, temperature 98.2, heart rate 65, respiratory rate 16, blood pressure 142/88, mean 106, room air saturation 94%, 2 L saturation 97%. She appears in no acute distress. HEENT examination is grossly unremarkable. No supplemental oxygen noted. NECK: Supple. Full range of motion. No adenopathy, thyromegaly or neck vein distention. CARDIOVASCULAR examination reveals regular rhythm and rate. Heart rate 65. It is regular. S1, S2 normal. There is no murmur. LUNGS: Reveal a few scattered bibasilar crackles. Breath sounds are improved. There is no rhonchi or wheezes. Breath sounds are equal bilaterally. ABDOMEN: Soft. Bowel sounds are heard. EXTREMITIES reveal some mild edema. It is about 1+. It is improved compared to yesterday's exam. There is also some diffuse mild erythema and hyperemia of the lower extremities. This could be consistent with cellulitis. SKIN: Without rash say for the findings I mentioned above. NEUROLOGIC examination is brief but nonfocal. Microbiology is pending or negative. LAB: Lab work from yesterday includes a white count 5.6, hemoglobin 9.5, hematocrit 30.8, platelet count normal. From today, PT/INR were 33 and 3.4. The rest of the labs have been reviewed. Influenza studies are negative. Medications are reviewed. ASSESSMENT: 1. Shortness of breath, likely related to underlying congestive heart failure rather than pneumonia. 2. Possible pulmonary infection such as purulent tracheobronchitis and/or pneumonia, thought to be less likely. 3. Previous history of tobacco use. 4. History of asthma. 5. History of atrial fibrillation. 6. History of coronary artery disease. 7. Gastroesophageal reflux disease. 8. History of hyperlipidemia. 9. Hypertension by history. 10.Hypothyroidism. 11.Stage 2 chronic kidney disease. 12.Glaucoma. PLAN: Currently, the patient seems better. She is being diuresed. Her chest x-ray from January 06 is improved. She remains on Lasix 80 mg IV push q.12 hours. In addition, she is getting Zithromax and ceftriaxone. We are also giving her nebulizer treatments. Overall, she is improved. We will continue to follow. Prognosis is guarded. Daily weights. Low-sodium diet. MMODL / NOAMN: [id number] /
[2019-01-06] MEDS: AZITHROMYCIN 500 MG TAB PO SCH (17:18)
[2019-01-06] MEDS ORDERED: WARFARIN 0.5 MG TAB PO ONE (18:00)
[2019-01-06] MEDS: LATANOPROST 0.005% OPHTH DROPS 2.5 ML BTL BOTH EYES SCH (20:38)
[2019-01-06] MEDS: PRAVASTATIN SODIUM 40 MG TAB PO SCH (20:38)
[2019-01-06] MEDS: ALPRAZolam 0.5 MG TAB PO SCH (20:38)
[2019-01-06 21:31] LABS: Appearance,Urine Clear (Clear); Bilirubin,Urine Negative (Negative); Blood,Urine Negative (Negative); Color,Urine Light Yellow; Glucose,Urine (UA) Negative (Negative); Ketones,Urine Negative (Negative); Leukocyte Esterase,Urine Negative (Negative); Nitrite,Urine Negative (Negative); PH, Urine 7.5 (5.0-8.0); Protein,Urine Negative (Negative); Specific Gravity,Urine 1.006 (1.001-1.035); Urobilinogen,Urine <2.0 mg/dL (<2.0)
[2019-01-07 07:20] LABS: INR 2.1 (<1.2)
[2019-01-07] MEDS: FUROSEMIDE 10 MG/ML 10 ML VIAL IV SCH (07:36)
[2019-01-07] MEDS: LISINOPRIL 10 MG TAB PO SCH (07:37)
[2019-01-07] MEDS: POTASSIUM CHLORIDE ER 10 MEQ TAB.ER.PRT PO SCH (07:37)
[2019-01-07] MEDS: CALCIUM CARB-VIT D 500MG-200UN 1 EACH TAB PO SCH (07:37)
[2019-01-07] MEDS: LEVOTHYROXINE 112 MCG TAB PO SCH (07:37)
[2019-01-07] MEDS: SPIRONOLACTONE 25 MG TAB PO SCH (07:37)
[2019-01-07] MEDS: CARVEDILOL 12.5 MG TAB PO SCH (07:37)
[2019-01-07] MEDS: ISOSORBIDE MONONITRATE ER 30 MG TAB.ER.24H PO SCH (07:37)
[2019-01-07] MEDS: PANTOPRAZOLE 40 MG TABLET PO SCH (07:37)
--- NOTE | 2019-01-07 08:15 | XR ---
EXAMINATION TYPE: XR chest 2V DATE OF EXAM: 01/07/2019 COMPARISON: 01/06/2019 TECHNIQUE: PA and lateral views submitted. HISTORY: Shortness of breath FINDINGS: The lungs are overinflated. The heart is enlarged. There is vascular congestion and pulmonary edema. There is improved aeration at the right lung base. There are small, bilateral effusions. IMPRESSION: 1. Stable pleural-parenchymal changes. Correlate for pneumonia versus CHF.
[2019-01-07 08:19] LABS: Calcium 9.9 mg/dL (8.4-10.2); Potassium 4.6 mmol/L (3.5-5.1)
[2019-01-07] MEDS: IPRATROPIUM-ALBUTEROL 3 ML NEB INHALATION SCH ×4 (08:48→19:35)
--- NOTE | 2019-01-07 10:14 | P.PN ---
Subjective Progress Note Date: 01/06/19 Principal diagnosis: The patient is a 88-year-old female with a past medical history of chronic A. fib on Coumadin therapy, diastolic CHF with last known ejection fraction of 50%, and pulmonary hypertension, GERD, chronic kidney disease stage III who is admitted for dyspnea of multifactorial etiology likely secondary to pneumonia superimposed on acute Diastolic CHF exacerbation after she presented with sepsis with initial checks x-ray showing COPD with bilateral consolidations or pleural effusion cardiomegaly and was noted to be febrile with a temperature of 102.1 and a leukocytosis of 14.3, NT proBNP 2870 And troponins less than 0.012, 0.035 and 0.038. The patient was started on empiric IV antibiotics with Rocephin and azithromycin and placed on supplemental oxygen at 2L. she was placed on IV diuretics with Lasix and cardiology and pulmonary consultation Patient seen and examined in follow-up. Patient reporting some shortness of breath, has been ambulating the halls back with a walker from the restroom without any oxygen with good saturations 94%, patient Diuresing well Objective - Vital Signs Vital signs: Vital Signs Temp 98.2 F 01/06/19 07:00 Pulse 77 01/06/19 07:00 Resp 16 01/06/19 07:00 BP 142/88 01/06/19 07:00 Pulse Ox 94 L 01/06/19 07:00 Intake & Output 01/05/19 01/06/19 01/06/19 18:59 06:59 18:59 Intake Total 480 425 Output Total 400 750 Balance 80 -325 Weight 73.5 kg Intake: Intake, IV Titration 50 Amount cefTRIAXone 1 gm In 50 Sodium Chloride 0.9% 50 ml @ 100 mls/hr IVPB Q24H [facility] Rx#:[id number] Oral 480 375 Output: Urine 400 750 Other: Voiding Method Bedside Commode Bedside Commode # Voids 2 - Exam Constitutional: No acute distress, conversant, pleasant Eyes: Anicteric sclerae, moist conjunctiva, no lid-lag, PERRLA ENMT: NC/AT,Oropharynx clear, no erythema, exudates Neck:Supple, FROM, no masses, or JVD, No carotid bruits; No thyromegaly Lungs: Diminished in the bases, right-sided basilar Rales greater than left, on 5 L nasal cannula Cardiovascular: Heart regular in rate and rhythm, No murmurs, gallops, or rubs, +2 peripheral edema Abdominal: Soft Nontender, nom distended, no guarding, no rebound or rigidity, Normoactive bowel sounds No hepatomegaly, No splenomegaly, No palpable mass No abdominal wall hernia noted Skin: Normal temperature, tone, texture, turgor, No induration No subcutaneous nodules, No rash, lesions, No ulcers Extremities:No digital cyanosis No clubbing, Pedal pulses intact and symmetrical Radial pulses intact and symmetrical Normal gait and station, No calf tenderness Psychiatric: Alert and oriented to person, place and time, Appropriate affect Intact judgement Neuro: Muscles Strength 5/5 in all 4 extremities, Sensation to light touch grossly present throughout, Cranial nerves II-XII grossly intact. No focal sensory deficits - Labs CBC & Chem 7: 01/05/19 06:07 01/05/19 06:07 Labs: Abnormal Lab Results - Last 24 Hours (Table) 01/06/19 Range/Units 06:09 PT 33.0 H (9.0-12.0) sec INR 3.4 H (<1.2) Microbiology - Last 24 Hours (Table) 01/02/19 13:20 Blood Culture - Preliminary Blood No Growth after 72 hours Assessment and Plan Plan: dyspnea * Multifactorial secondary to pneumonia superimposed on underlying acute on chronic diastolic CHF exacerbation * Continue supplemental oxygen and breathing treatments * Continue current antibiotics and diuresis * Chest x-ray shows increasing small bilateral pleural effusions and interstitial edema suggestive of cardiogenic fluid overload with increasing right perihilar opacity, pulmonary edema versus atelectasis versus pneumonia Sepsis secondary to community acquired pneumonia -Influenza testing negative -Follow-up sputum and blood cultures -Continue with azithromycin and ceftriaxone -Continue with DuoNeb's Acute on chronic diastolic congestive heart failure exacerbation -Continue Lasix 80 mg IV push every 12 hourly -C/w Aldactone, Coreg, Lisinopril -C/w strict I's and O's, daily weights, fluid restriction * Echocardiogram showed preserved LVEF of 55-60% with moderately dilated left atrium CKD 3 -Monitor BMP -Avoid nephrotoxic agents Anemia * Iron studies ordered * Likely secondary to anemia of chronic kidney disease Coronary artery disease s/p PCI RCA * Likely stable troponin elevation likely secondary to sepsis/febrile illness in the setting of underlying CKD III -HTN -C/w home meds A-fib on Coumadin -As per pharmacy dosing DVT prophylaxis -IPCDs Discussed with: Patient Anticipated discharge date: 01/[address]: Home A total of 35 minutes was spent on the care of this complex patient more than 50% of the time was spent in counseling and care coordination.
--- NOTE | 2019-01-07 10:21 | P.PN ---
Subjective Progress Note Date: 01/07/19 Principal diagnosis: The patient is a 88-year-old female with a past medical history of chronic A. fib on Coumadin therapy, diastolic CHF with last known ejection fraction of 50%, and pulmonary hypertension, GERD, chronic kidney disease stage III who is admitted for dyspnea of multifactorial etiology likely secondary to pneumonia superimposed on acute Diastolic CHF exacerbation after she presented with sepsis with initial checks x-ray showing COPD with bilateral consolidations or pleural effusion cardiomegaly and was noted to be febrile with a temperature of 102.1 and a leukocytosis of 14.3, NT proBNP 2870 And troponins less than 0.012, 0.035 and 0.038. The patient was started on empiric IV antibiotics with Rocephin and azithromycin and placed on supplemental oxygen at 2L. she was placed on IV diuretics with Lasix and cardiology and pulmonary consultation Patient seen and examined in follow-up. Patient reporting some shortness of breath, has been ambulating the halls back with a walker from the restroom without any oxygen with good saturations 94%, patient Diuresing well. Has lost approximately 5 kg since admission Her chest x-ray showing pneumonia versus CHF, yesterday's chest x-ray showed improving pulmonary edema Objective - Vital Signs Vital signs: Vital Signs Temp 98.4 F 01/07/19 07:00 Pulse 72 01/07/19 09:02 Resp 16 01/07/19 07:00 BP 112/65 01/07/19 07:00 Pulse Ox 95 01/07/19 08:50 Intake & Output 01/06/19 01/07/19 01/07/19 18:59 06:59 18:59 Intake Total 250 Output Total 1600 Balance -1350 Weight 72 kg Intake: Oral 250 Output: Urine 1600 Other: Voiding Method Bedside Commode Toilet Toilet - Exam Constitutional: No acute distress, conversant, pleasant Eyes: Anicteric sclerae, moist conjunctiva, no lid-lag, PERRLA ENMT: NC/AT,Oropharynx clear, no erythema, exudates Neck:Supple, FROM, no masses, or JVD, No carotid bruits; No thyromegaly Lungs: Diminished in the bases, left-sided basilar Rales greater than right on room air. Cardiovascular: Heart regular in rate and rhythm, No murmurs, gallops, or rubs, +1 peripheral edema Abdominal: Soft Nontender, nom distended, no guarding, no rebound or rigidity, Normoactive bowel sounds No hepatomegaly, No splenomegaly, No palpable mass No abdominal wall hernia noted Skin: Normal temperature, tone, texture, turgor, No induration No subcutaneous nodules, No rash, lesions, No ulcers Extremities:No digital cyanosis No clubbing, Pedal pulses intact and symmetrical Radial pulses intact and symmetrical Normal gait and station, No calf tenderness Psychiatric: Alert and oriented to person, place and time, Appropriate affect Intact judgement Neuro: Muscles Strength 5/5 in all 4 extremities, Sensation to light touch grossly present throughout, Cranial nerves II-XII grossly intact. No focal sensory deficits - Labs CBC & Chem 7: 01/05/19 06:07 01/07/19 06:23 Labs: Abnormal Lab Results - Last 24 Hours (Table) 01/07/19 01/07/19 Range/Units 06:23 06:23 PT 21.0 H (9.0-12.0) sec INR 2.1 H (<1.2) Chloride 92 L (98-107) mmol/L Carbon Dioxide 38 H (22-30) mmol/L BUN 54 H (7-17) mg/dL Creatinine 1.89 H (0.52-1.04) mg/dL Microbiology - Last 24 Hours (Table) 01/02/19 13:20 Blood Culture - Preliminary Blood No Growth after 96 hours Assessment and Plan Plan: dyspnea * Multifactorial secondary to pneumonia superimposed on underlying acute on chronic diastolic CHF exacerbation * Continue supplemental oxygen and breathing treatments * Continue current antibiotics and diuresis * Chest x-ray shows improving pulmonary edema and pneumonia versus CHF Sepsis secondary to community acquired pneumonia -Influenza testing negative -Follow-up sputum and blood cultures -Continue with azithromycin and ceftriaxone -Continue with DuoNeb's Acute on chronic diastolic congestive heart failure exacerbation -Continue Lasix 40 mg IV push every 12 hourly will transition to oral diuretics in the morning -C/w Aldactone, Coreg, Lisinopril -C/w strict I's and O's, daily weights, fluid restriction * Echocardiogram showed preserved LVEF of 55-60% with moderately dilated left atrium CKD 3 -Monitor BMP -Avoid nephrotoxic agents Anemia * Iron studies ordered * Likely secondary to anemia of chronic kidney disease Coronary artery disease s/p PCI RCA * Likely stable troponin elevation likely secondary to sepsis/febrile illness in the setting of underlying CKD III -HTN -C/w home meds A-fib on Coumadin -As per pharmacy dosing DVT prophylaxis -IPCDs Discussed with: Patient Anticipated discharge date: Tomorrow Anticipated discharge place: Home A total of 35 minutes was spent on the care of this complex patient more than 50% of the time was spent in counseling and care coordination.
[2019-01-07 10:48] LABS: Ferritin 107.9 ng/mL (10.0-291.0)
--- NOTE | 2019-01-07 11:04 | P.PN ---
Subjective This is a pleasant 88-year-old female past medical history significant for coronary artery disease s/p PCI to the RCA, chronic persistent atrial fibrillation on vermin exterminator anti-coagulation, chronic diastolic heart failure, hypertension and dyslipidemia. She follows in the office with Dr. Rao. She is currently maintained on lasix 80 mg IV BID. She continues to maintain a negative fluid balance and her weight is going down each day, down about 5kg from admission. Blood pressure 112/65 heart rate 72 afebrile and maintaining oxygen saturations on room air. Laboratory data reviewed, INR 2.1, sodium 139, potassium 4.6, creatinine 1.90. Repeat chest xray today reveals stable chest with ongoing vascular congestion and pulmonary edema, improved from previous. She has been seen by pulmonary and they do not think she has pneumonia. GENERAL: This is a 88-year-old female in no apparent distress at the time of my examination. HEENT: Head is atraumatic, normocephalic. Pupils are equal, round. Sclerae anicteric. Conjunctivae are clear. Mucous membranes of the mouth are moist. Neck is supple. There is 1 cm of jugular venous distention. No carotid bruit is heard. LUNGS: Bibasilar rales, faint expiratory wheezes and no rhonchi. No chest wall tenderness is noted on palpation or with deep breathing. HEART: Irregular rate and rhythm with systolic ejection murmur at the left sternal border, no rubs or gallops. S1 and S2 heard. EXTREMITIES: Bilateral lower extremity trace edema and no calf tenderness noted. ASSESSMENT Acute on chronic diastolic heart failure with underlying pneumonia Febrile illness Chronic persistent atrial fibrillation on jail anti-coagulation with coumadin Pulmonary hypertension Coronary artery disease s/p PCI RCA Hypertension Dyslipidemia PLAN Decrease lasix to 40 mg IV BID. Continue to follow renal function and electrolytes in the morning. Possible transition to oral tomorrow. She is improving very slowly each day. Nurse Practitioner note has been reviewed, I agree with a documented findings and plan of care. Patient was seen and examined. Objective - Vital Signs Vital signs: Vital Signs Temp 98.4 F 01/07/19 07:00 Pulse 72 01/07/19 09:02 Resp 16 01/07/19 07:00 BP 112/65 01/07/19 07:00 Pulse Ox 95 01/07/19 08:50 Intake & Output 01/06/19 01/07/19 01/07/19 18:59 06:59 18:59 Intake Total 250 Output Total 1600 Balance -1350 Weight 72 kg Intake: Oral 250 Output: Urine 1600 Other: Voiding Method Bedside Commode Toilet Toilet - Labs CBC & Chem 7: 01/05/19 06:07 01/07/19 06:23 Labs: Abnormal Lab Results - Last 24 Hours (Table) 01/07/19 01/07/19 Range/Units 06:23 06:23 PT 21.0 H (9.0-12.0) sec INR 2.1 H (<1.2) Chloride 92 L (98-107) mmol/L Carbon Dioxide 38 H (22-30) mmol/L BUN 54 H (7-17) mg/dL Creatinine 1.89 H (0.52-1.04) mg/dL Microbiology - Last 24 Hours (Table) 01/02/19 13:20 Blood Culture - Preliminary Blood No Growth after 96 hours
[2019-01-07 11:44] LABS: Iron Saturation 4.49 (12.00-45.00)
--- NOTE | 2019-01-07 15:31 | CT ---
EXAMINATION TYPE: CT chest wo con DATE OF EXAM: 01/07/2019 COMPARISON: HISTORY: Shortness of breath. CT DLP: 354.8 mGycm, Automated exposure control for dose reduction was used. CONTRAST: Performed injected with 0 mL of Isovue 300. TECHNIQUE: Axial images were obtained at 5 mm thick sections. Reconstructed images are reviewed on t he computer in the coronal plane. FINDINGS: Portion of the thyroid visualized is normal. There is a small to moderate right pleural effusion. Note is made of vascular calcification through t he tapering aorta. Moderate coronary artery calcification is present. There is some streak opacity is present within the right lower lobe. There is a 0.7 cm small patchy a best of increased density, series 301 image 35. Some irregular density is within the lingula. Series 3 01 image 21 No enlarged mediastinal or hilar adenopathy is evident. The ascending aorta diameter at the level o f the main pulmonary artery is 2.9 cm. The main pulmonary artery diameter at the bifurcation is 2.[address] sections are obtained through the upper abdomen. Abdomen is essentially unremarkable. IMPRESSIONS: 1. Moderate right pleural effusion.
[2019-01-07] MEDS: AZITHROMYCIN 500 MG TAB PO SCH (15:47)
--- NOTE | 2019-01-07 16:53 | P.PN ---
Subjective Progress Note Date: 01/07/19 Principal diagnosis: Dyspnea, multifactorial, most likely related to acute on chronic diastolic CHF exacerbation, possibility of tracheobronchitis On 01/07/2019 patient seen in follow-up on medical surgical floor. She is ambulating with a walker, and with therapy, she is in no acute distress, she is on room air, she denies any chest wall tenderness, she denies any hemoptysis, no fever or chills. CT chest with contrast has been obtained, showing small to moderate right pleural effusion, and a small patchy area of increased density and some streak opacity within the right lower lobe. Patient has received IV diuretics, her echocardiogram showed EF of 55-60%, patient is in atrial fibrillation with a controlled rate, she denies any chest pain, there was mild aortic regurg, mild aortic stenosis, mild mitral regurgitation, mild pulmonary hypertension. Patient pulse ox is 92% on room air. Blood cultures show no growth. Lung sounds reveal clear breath sounds bilaterally, she is in -1300 mL fluid balance, weight is down by 1.5 kg. Patient is on Coumadin for anticoa gulation, today's INR is 2.1 Objective - Vital Signs Vital signs: Vital Signs Temp 98 F 01/07/19 14:56 Pulse 74 01/07/19 16:34 Resp 15 01/07/19 14:56 BP 91/47 01/07/19 14:56 Pulse Ox 92 L 01/07/19 14:56 Intake & Output 01/06/19 01/07/19 01/07/19 18:59 06:59 18:59 Intake Total 250 Output Total 1600 400 Balance -1350 -400 Weight 72 kg Intake: Oral 250 Output: Urine 1600 400 Other: Voiding Method Bedside Commode Toilet Toilet - Exam GENERAL EXAM: Alert, pleasant, 88-year-old on room air, ambulating with a walker, comfortable in no apparent distress. HEAD: Normocephalic/atraumatic. EYES: Normal reaction of pupils, equal size. Conjunctiva pink, sclera white. NOSE: Clear with pink turbinates. THROAT: No erythema or exudates. NECK: No masses, no JVD, no thyroid enlargement, no adenopathy. CHEST: No chest wall deformity. Symmetrical expansion. LUNGS: Equal air entry with no crackles, wheeze, rhonchi or dullness. CVS: Irregular rate and rhythm, normal S1 and S2, no gallops, no murmurs, no rubs ABDOMEN: Soft, nontender. No hepatosplenomegaly, normal bowel sounds, no guarding or rigidity. EXTREMITIES: No clubbing, no edema, no cyanosis, 2+ pulses and upper and lower extremities. MUSCULOSKELETAL: Muscle strength and tone normal. SPINE: No scoliosis or deformity SKIN: No rashes CENTRAL NERVOUS SYSTEM: Alert and oriented -3. No focal deficits, tone is normal in all 4 extremities. PSYCHIATRIC: Alert and oriented -3. Appropriate affect. Intact judgment and insight. - Labs CBC & Chem 7: 01/05/19 06:07 01/07/19 06:23 Labs: Abnormal Lab Results - Last 24 Hours (Table) 01/05/19 01/07/19 01/07/19 Range/Units 06:07 06:23 06:23 PT 21.0 H (9.0-12.0) sec INR 2.1 H (<1.2) Chloride 92 L (98-107) mmol/L Carbon Dioxide 38 H (22-30) mmol/L BUN 54 H (7-17) mg/dL Creatinine 1.89 H (0.52-1.04) mg/dL Iron 14 L (50-170) ug/dL Iron Saturation 4.49 L (12.00-45.00) Microbiology - Last 24 Hours (Table) 01/02/19 13:20 Blood Culture - Preliminary Blood No Growth after 120 hours Assessment and Plan Plan: Assessment: #1. Dyspnea, multifactorial, related to acute exacerbation of diastolic CHF, and possibility of tracheobronchitis, pneumonia felt to be less likely #2. History of atrial fibrillation on Coumadin, with therapeutic INR at 2.1 today #3. Chronic kidney disease stage III #4. History of chronic bronchial asthma #5. History of coronary artery disease #6. Hypertension #7. Hyperlipidemia #8. Hypothyroidism #9. Glaucoma Plan: Continue current medical treatment, patient is on oral diuretics, she is maintaining negative fluid balance, she is on supplemental oxygen, she is tolerating ambulation. Denies any chest pain. No fever or chills, blood culture show no growth, she continues on antibiotics, today's CT chest with contrast has been reviewed and showing moderate size right pleural effusion. There is a possibility patient may need thoracentesis, but continue with medical treatment right now. No worsening dyspnea, patient is on room air. Continue monitoring daily labs, renal profile and electrolytes I performed a history & physical examination of the patient and discussed their management with my nurse practitioner, Magalys Cruz. I reviewed the nurse practitioner's note and agree with the documented findings and plan of care. Lung sounds are positive for diminished breath sounds. The findings and the impression was discussed with the patient. I attest to the documentation by the nurse practitioner. Time with Patient: Less than 30
[2019-01-07] MEDS ORDERED: WARFARIN 2 MG TAB PO ONE (18:00)
[2019-01-07] MEDS: LATANOPROST 0.005% OPHTH DROPS 2.5 ML BTL BOTH EYES SCH (20:54)
[2019-01-07] MEDS: PRAVASTATIN SODIUM 40 MG TAB PO SCH (20:54)
[2019-01-07] MEDS: ALPRAZolam 0.5 MG TAB PO SCH (20:54)
[2019-01-07] MEDS: FUROSEMIDE 10 MG/ML 4 ML VIAL IV SCH (20:54)
[2019-01-08] MEDS: LEVOTHYROXINE 112 MCG TAB PO SCH (06:27)
[2019-01-08 06:43] LABS: INR 1.9 (<1.2); Prothrombin Time 18.5 sec (9.0-12.0)
[2019-01-08 06:52] LABS: Calcium 9.4 mg/dL (8.4-10.2); Potassium 4.8 mmol/L (3.5-5.1)
[2019-01-08] MEDS: IPRATROPIUM-ALBUTEROL 3 ML NEB INHALATION SCH ×3 (07:41→15:41)
[2019-01-08] MEDS: LISINOPRIL 10 MG TAB PO SCH (08:01)
[2019-01-08] MEDS: ISOSORBIDE MONONITRATE ER 30 MG TAB.ER.24H PO SCH (08:01)
[2019-01-08] MEDS: CARVEDILOL 12.5 MG TAB PO SCH (08:02)
[2019-01-08] MEDS: FUROSEMIDE 10 MG/ML 4 ML VIAL IV SCH (08:03)
[2019-01-08] MEDS: CALCIUM CARB-VIT D 500MG-200UN 1 EACH TAB PO SCH (08:03)
[2019-01-08] MEDS: POTASSIUM CHLORIDE ER 10 MEQ TAB.ER.PRT PO SCH (08:03)
[2019-01-08] MEDS: PANTOPRAZOLE 40 MG TABLET PO SCH (08:03)
[2019-01-08] MEDS: SPIRONOLACTONE 25 MG TAB PO SCH (08:03)
[2019-01-08 09:30] VITALS: TEMP 98.1
--- NOTE | 2019-01-08 09:36 | US ---
EXAMINATION TYPE: US chest DATE OF EXAM: 01/08/2019 COMPARISON: CT CLINICAL HISTORY: right pleural effusion, . Right pleural effusion TECHNIQUE: Targeted ultrasound of the posterior lower right hemithorax EXAM MEASUREMENTS: Right Pleural Effusion pocket size: 9.2 cm Right skin surface to fluid distance: 4.1 cm Right side marked for possible thoracentesis outside the dept. Pulmonologists are able to review the images in the patient?s EMR. IMPRESSIONS: 1. Right pleural effusion.
--- NOTE | 2019-01-08 10:31 | P.PN ---
Subjective Progress Note Date: 01/08/19 On today's evaluation of 01/08/2019, the patient is looking well. No major respiratory distress. CAT scan of the chest was done yesterday and showed a moderate-sized right-sided pleural effusion. This is likely parapneumonic in nature. The patient is also developed an acute kidney injury due to aggressive diuresis. Creatinine is up to 2. Lasix has been discontinued. Prior to that the patient was receiving 8 mg of IV Lasix twice a day. Also the echocardiogram that was done during this current admission showed moderate concentric LVH/hypertensive heart disease. No valvular heart disease. Left. Ejection fraction has been essentially within normal limits. No fever or chills. She is on room air oxygen. She is ambulating. Her INR today is at 1.9. Objective - Vital Signs Vital signs: Vital Signs Temp 98.1 F 01/08/19 07:00 Pulse 74 01/08/19 07:54 Resp 17 01/08/19 07:00 BP 97/61 01/08/19 07:00 Pulse Ox 96 01/08/19 07:00 Intake & Output 01/07/19 01/08/19 01/08/19 18:59 06:59 18:59 Output Total 400 800 Balance -400 -800 Weight 72.5 kg Output: Urine 400 800 Other: Voiding Method Toilet - Exam ENERAL EXAM: Alert, pleasant, 88-year-old on room air, ambulating with a walker, comfortable in no apparent distress. HEAD: Normocephalic/atraumatic. EYES: Normal reaction of pupils, equal size. Conjunctiva pink, sclera white. NOSE: Clear with pink turbinates. THROAT: No erythema or exudates. NECK: No masses, no JVD, no thyroid enlargement, no adenopathy. CHEST: No chest wall deformity. Symmetrical expansion. LUNGS: Equal air entry with no crackles, wheeze, rhonchi or dullness. The breast on the right lung base along with dullness to percussion consistent with pleural effusion. CVS: Irregular rate and rhythm, normal S1 and S2, no gallops, no murmurs, no rubs ABDOMEN: Soft, nontender. No hepatosplenomegaly, normal bowel sounds, no guarding or rigidity. EXTREMITIES: No clubbing, no edema, no cyanosis, 2+ pulses and upper and lower extremities. MUSCULOSKELETAL: Muscle strength and tone normal. SPINE: No scoliosis or deformity SKIN: No rashes CENTRAL NERVOUS SYSTEM: Alert and oriented -3. No focal deficits, tone is normal in all 4 extremities. PSYCHIATRIC: Alert and oriented -3. Appropriate affect. Intact judgment and insight. - Labs CBC & Chem 7: 01/05/19 06:07 01/08/19 06:09 Labs: Abnormal Lab Results - Last 24 Hours (Table) 01/05/19 01/08/19 01/08/19 Range/Units 06:07 06:09 06:09 PT 18.5 H (9.0-12.0) sec INR 1.9 H (<1.2) Chloride 92 L (98-107) mmol/L Carbon Dioxide 40 H (22-30) mmol/L BUN 63 H (7-17) mg/dL Creatinine 2.08 H (0.52-1.04) mg/dL Iron 14 L (50-170) ug/dL Iron Saturation 4.49 L (12.00-45.00) Microbiology - Last 24 Hours (Table) 01/02/19 13:20 Blood Culture - Preliminary Blood No Growth after 120 hours Assessment and Plan Plan: #1. Dyspnea, multifactorial, related to acute exacerbation of diastolic CHF, in addition the possibility of a right lower lobe pneumonia/parapneumonic effusion. The right-sided pleural effusion could be also related to CHF. Mother the patient has concentric LVH and diastolic heart failure. #2. History of atrial fibrillation on Coumadin, with therapeutic INR at 1.9 today #3. Chronic kidney disease stage III the patient developed an acute kidney injury due to aggressive diuresis and creatinine is up to 2. #4. History of chronic bronchial asthma #5. History of coronary artery disease #6. Hypertension #7. Hyperlipidemia #8. Hypothyroidism #9. Glaucoma Plan We discussed the need for thoracentesis. This will be done at the bedside. Diuretics are on hold. Monitor the creatinine. We'll evaluate the fluid and send it for analysis and will make further recommendations accordingly. The patient remains on Zithromax orally.
[2019-01-08] MEDS ORDERED: LIDOCAINE 2% INJ 20 MG/ML (20 ML MDV) SQ ONE ×2 (12:00)
[2019-01-08] MEDS: AZITHROMYCIN 500 MG TAB PO SCH (15:20)
[2019-01-08 15:51] VITALS: BP 150/66; PULSE 59; RESP 15
[2019-01-08] MEDS ORDERED: FUROSEMIDE 40 MG TAB PO SCH (16:00)
--- NOTE | 2019-01-22 11:27 | P.DS ---
Providers Date of admission: 01/02/19 16:31 Expected date of discharge: 01/08/19 Attending physician: Iva Leach MD Consults: 01/04/19 09:17 Consult Physician Routine Consulting Provider: [facility] Consult Reason/Comments: CHF Do you want consulting provider notified?: Yes 01/04/19 12:00 Consult Physician Routine Consulting Provider: Jax Angel Consult Reason/Comments: acute resp failure, pna, CHf Do you want consulting provider notified?: Yes Primary care physician: Koko Gold Hospital Course: Discharge diagnoses Sepsis Acute on chronic diastolic CHF exacerbation Community-acquired pneumonia with parapneumonic effusion Dyspnea Acute kidney injury superimposed and CKD stage III Iron deficiency anemia Atrial fibrillation on Coumadin with therapeutic INR The patient is a 88-year-old female with a past medical history of chronic A. fib on Coumadin therapy, diastolic CHF with last known ejection fraction of 50%, and pulmonary hypertension, GERD, chronic kidney disease stage III who is admitted for dyspnea of multifactorial etiology likely secondary to pneumonia superimposed on acute Diastolic CHF exacerbation after she presented with sepsis with initial checks x-ray showing COPD with bilateral consolidations or pleural effusion cardiomegaly and was noted to be febrile with a temperature of 102.1 and a leukocytosis of 14.3, NT proBNP 2870 And troponins less than 0.012, 0.035 and 0.038. The patient was started on empiric IV antibiotics with Rocephin and azithromycin and placed on supplemental oxygen at 2L. she was placed on IV diuretics with Lasix and cardiology and pulmonary consultation, the patient was diuresed aggressively loss approximately 5 kg of fluid throughout her hospitalization. Echocardiogram performed showed a preserved LVEF of 55-60% with moderate concentric LVH and hypertensive heart disease. Despite this aggressive diuresis the patient continued to have shortness of breath, CT of the chest and chest ultrasound was ordered that showed a moderate right pleural effusion that was amenable for drainage via thoracentesis by pulmonary. The patient was subsequently discharged home with home health and instructed to follow-up with a PCP Patient Condition at Discharge: Fair Plan - Discharge Summary Discharge Rx Participant: No New Discharge Prescriptions: No Action Latanoprost [Xalatan 0.005%] 1 drop BOTH EYES HS Levothyroxine Sodium 112 mcg PO DAILY Pravastatin Sodium [Pravachol] 40 mg PO HS Isosorbide Mononitrate ER [Imdur] 30 mg PO DAILY Ergocalciferol (Vitamin D2) [Vitamin D2] 50,000 unit PO SA ALPRAZolam [Xanax] 0.5 mg PO HS Lisinopril [Zestril] 10 mg PO DAILY #30 tab Nitroglycerin Sl Tabs [Nitrostat] 0.4 mg SUBLINGUAL Q5M PRN PRN Reason: Chest Pain Pantoprazole [Protonix] 40 mg PO DAILY Ipratropium-Albuterol Nebulize [Duoneb 0.5 mg-3 mg/3 ml Soln] 3 ml INHALATION RT-Q2H PRN #1 box PRN Reason: Shortness Of Breath Or Wheezing Spironolactone 50 mg PO DAILY #30 tablet Furosemide [Lasix] 40 mg PO BID@0900,1600 #60 tab Albuterol Inhaler [Ventolin Hfa Inhaler] 1 - 2 puff INHALATION RT-Q6H PRN #1 inhaler PRN Reason: Shortness Of Breath Denosumab [Prolia] 60 mg SQ Q180D Potassium Chloride ER [K-Dur 10] 10 meq PO DAILY Carvedilol [Coreg*] 12.5 mg PO DAILY Warfarin [Coumadin] 2 mg PO HS Calcium Carb/Vitamin D3/Vit K1 [Citracal Soft Chew] 1 tab PO DAILY Discharge Medication List ALPRAZolam [Xanax] 0.5 mg PO HS 12/03/17 [History] Ergocalciferol (Vitamin D2) [Vitamin D2] 50,000 unit PO SA 12/03/17 [History] Isosorbide Mononitrate ER [Imdur] 30 mg PO DAILY 12/03/17 [History] Latanoprost [Xalatan 0.005%] 1 drop BOTH EYES HS 12/03/17 [History] Levothyroxine Sodium 112 mcg PO DAILY 12/03/17 [History] Pravastatin Sodium [Pravachol] 40 mg PO HS 12/03/17 [History] Lisinopril [Zestril] 10 mg PO DAILY #30 tab 12/25/17 [Rx] Nitroglycerin Sl Tabs [Nitrostat] 0.4 mg SUBLINGUAL Q5M PRN 06/09/18 [History] Pantoprazole [Protonix] 40 mg PO DAILY 06/09/18 [History] Albuterol Inhaler [Ventolin Hfa Inhaler] 1 - 2 puff INHALATION RT-Q6H PRN #1 inhaler 08/06/18 [Rx] Furosemide [Lasix] 40 mg PO BID@0900,1600 #60 tab 08/06/18 [Rx] Ipratropium-Albuterol Nebulize [Duoneb 0.5 mg-3 mg/3 ml Soln] 3 ml INHALATION RT-Q2H PRN #1 box 08/06/18 [Rx] Spironolactone 50 mg PO DAILY #30 tablet 08/06/18 [Rx] Calcium Carb/Vitamin D3/Vit K1 [Citracal Soft Chew] 1 tab PO DAILY 01/02/19 [History] Carvedilol [Coreg*] 12.5 mg PO DAILY 01/02/19 [History] Denosumab [Prolia] 60 mg SQ Q180D 01/02/19 [History] Potassium Chloride ER [K-Dur 10] 10 meq PO DAILY 01/02/19 [History] Warfarin [Coumadin] 2 mg PO HS 01/02/19 [History] Follow up Appointment(s)/Referral(s): Koko Gold MD [Primary Care Provider] - 1-2 days Arelis Rao MD [STAFF PHYSICIAN] - 2 Weeks Patient Instructions/Handouts: Pleural Effusion (DC)
== END 2019-01-08 17:16 | disposition home health service (06) | DRG 871 ==
LOC: EC 13:18 → 4MS4W 16:31 → 4SSUR 18:09 → 4MS4W 21:37 → 4SSUR 21:37
PROVIDERS: ADMIT Internal Medicine; ATTEND Internal Medicine
DX: A41.9 Sepsis, unspecified organism (principal); I50.33 Acute on chronic diastolic (congestive) heart failure; J18.9 Pneumonia, unspecified organism; I13.0 Hypertensive heart and chronic kidney disease with heart failure and stage 1 through stage 4 chronic kidney disease, or unspecified chronic kidney disease; N17.9 Acute kidney failure, unspecified; J44.0 Chronic obstructive pulmonary disease with (acute) lower respiratory infection; L03.116 Cellulitis of left lower limb; L03.115 Cellulitis of right lower limb; I16.0 Hypertensive urgency; I27.20 Pulmonary hypertension, unspecified; T50.2X5A Adverse effect of carbonic-anhydrase inhibitors, benzothiadiazides and other diuretics, initial encounter; E66.9 Obesity, unspecified; Z71.3 Dietary counseling and surveillance; Z68.29 Body mass index [BMI] 29.0-29.9, adult; E78.5 Hyperlipidemia, unspecified; E89.0 Postprocedural hypothyroidism; F41.9 Anxiety disorder, unspecified; H40.9 Unspecified glaucoma; I25.10 Atherosclerotic heart disease of native coronary artery without angina pectoris; K21.9 Gastro-esophageal reflux disease without esophagitis; N18.3 Chronic kidney disease, stage 3 (moderate); I48.91 Unspecified atrial fibrillation; R79.1 Abnormal coagulation profile; T45.515A Adverse effect of anticoagulants, initial encounter; Z79.01 Long term (current) use of anticoagulants; Z79.890 Hormone replacement therapy; Z79.899 Other long term (current) drug therapy; Z90.710 Acquired absence of both cervix and uterus; Z95.5 Presence of coronary angioplasty implant and graft; Z98.42 Cataract extraction status, left eye; Z98.41 Cataract extraction status, right eye; Z96.651 Presence of right artificial knee joint; I08.2 Rheumatic disorders of both aortic and tricuspid valves; D64.9 Anemia, unspecified; Z90.49 Acquired absence of other specified parts of digestive tract; Z88.8 Allergy status to other drugs, medicaments and biological substances; Z87.891 Personal history of nicotine dependence
CPT/HCPCS: 36415; 71046; 71250; 76604; 80048; 80053; 81003; 82308; 82728; 83540; 83550; 83605; 83735; 83880; 84484; 85025; 85027; 85379; 85610; 85730; 87040; 87502; 93005; 93306; 94640; 94760; 96361; 96365; 96366; 96367; 99285

== ENCOUNTER 2019-09-16 09:17 | Inpatient (IN) | payer MEDICARE, BC ==
[2019-09-16] MEDS ORDERED: MORPHINE SULFATE 4 MG/ML SYRINGE IVP STA (09:35)
--- NOTE | 2019-09-16 09:41 | ED ---
General Adult HPI - General Chief complaint: Chest Pain Stated complaint: Chest pain Time Seen by Provider: 09/16/19 09:25 Source: patient, RN notes reviewed, old records reviewed Mode of arrival: wheelchair Limitations: no limitations - History of Present Illness Initial comments: 88-year-old female with history of atrial fibrillation, previous CAD with stenting presenting for evaluation of chest pain and upper back pain. Pain has been present for the past 3 days. His been associated palpitations, nausea, diaphoresis. Patient states she did have a fall approximately 2 weeks ago onto her left side. She was seen by her primary care physician prescribed tramadol which she has been taking but has increased her nausea. No vomiting or diarrhea. No fever. No cough. - Related Data Home Medications Medication Instructions Recorded Confirmed ALPRAZolam [Xanax] 0.5 mg PO HS 12/03/17 09/16/19 Ergocalciferol (Vitamin D2) 50,000 unit PO SA 12/03/17 09/16/19 [Vitamin D2] Isosorbide Mononitrate ER [Imdur] 30 mg PO DAILY 12/03/17 09/16/19 Latanoprost [Xalatan 0.005%] 1 drop BOTH EYES HS 12/03/17 09/16/19 Levothyroxine Sodium 112 mcg PO DAILY 12/03/17 09/16/19 Nitroglycerin Sl Tabs [Nitrostat] 0.4 mg SUBLINGUAL Q5M PRN 06/09/18 09/16/19 Warfarin [Coumadin] 2 mg PO HS 01/02/19 09/16/19 Albuterol Sulfate [Ventolin HFA] 1 - 2 puff INHALATION RT-Q6H PRN 09/16/19 09/16/19 Carvedilol [Coreg] 3.125 mg PO BID 09/16/19 09/16/19 Furosemide [Lasix] 80 mg PO DAILY@1200 09/16/19 09/16/19 Previous Rx's Medication Instructions Recorded Ipratropium-Albuterol Nebulize 3 ml INHALATION RT-Q2H PRN #1 box 08/06/18 [Duoneb 0.5 mg-3 mg/3 ml Soln] Allergies Allergy/AdvReac Type Severity Reaction Status Date / Time brimonidine [From Simbrinza] Allergy Unknown Verified 09/16/19 10:38 brinzolamide [From Simbrinza] Allergy Unknown Verified 09/16/19 10:38 tramadol AdvReac Nausea & Verified 09/16/19 10:38 Vomiting Review of Systems ROS Statement: Those systems with pertinent positive or pertinent negative responses have been documented in the HPI. ROS Other: All systems not noted in ROS Statement are negative. Past Medical History Past Medical History: Atrial Fibrillation, Coronary Artery Disease (CAD), Heart Failure, GERD/Reflux, Hyperlipidemia, Hypertension, Thyroid Disorder Additional Past Medical History / Comment(s): Coronary artery disease, chronic atrial fibrillation, hypertension, hyperlipidemia, chronic stage II kidney disease with a baseline creatinine of around 1.5, hypothyroidism, glaucoma History of Any Multi-Drug Resistant Organisms: None Reported Past Surgical History: Cholecystectomy, Heart Catheterization With Stent, Hysterectomy, Orthopedic Surgery, Tonsillectomy Additional Past Surgical History / Comment(s): right knee replacement, carpal tunnel release, "thyroidectomy", fco feet -heel spurs, cataracts-lens implants. Past Anesthesia/Blood Transfusion Reactions: No Reported Reaction Date of Last Stent Placement:: 2013 Past Psychological History: No Psychological Hx Reported Smoking Status: Former smoker Past Alcohol Use History: None Reported Past Drug Use History: None Reported - Past Family History Daughter(s) Additional Family Medical History / Comment(s): short term memory loss Father Additional Family Medical History / Comment(s): denies family history of cancer or DM in her mother General Exam Limitations: no limitations General appearance: alert, in no apparent distress Head exam: Present: atraumatic, normocephalic Eye exam: Present: normal appearance, PERRL ENT exam: Present: normal exam Neck exam: Present: normal inspection. Absent: tenderness, meningismus Respiratory exam: Present: normal lung sounds bilaterally. Absent: respiratory distress, wheezes Cardiovascular Exam: Present: regular rate, irregular rhythm GI/Abdominal exam: Present: soft. Absent: distended, tenderness, guarding Extremities exam: Present: normal inspection, normal capillary refill. Absent: pedal edema Back exam: Present: normal inspection, full ROM. Absent: vertebral tenderness Neurological exam: Present: alert, oriented X3, CN II-XII intact. Absent: motor sensory deficit Psychiatric exam: Present: normal affect, normal mood Skin exam: Present: warm, dry, intact. Absent: cyanosis, diaphoretic Course Vital Signs 09/16/19 09/16/19 09:19 09:23 Temperature 98 F Pulse Rate 80 Pulse Rate [ 77 Sound Printer ] Respiratory 18 Rate Blood Pressure 174/66 O2 Sat by Pulse 95 Oximetry EKG Findings - EKG Comments: EKG Findings:: EKG: Atrial fibrillation, rate of 71, QRS duration 82, QTC 434, no ST segment elevation baseline artifact. Medical Decision Making - Medical Decision Making 88-year-old female with chest pain with associated features of diaphoresis, nausea radiation to her shoulders. History of CAD. EKG showing atrial fibrillation with no ST segment elevation. Chest x-ray showing trace bilateral effusions and atelectasis, no focal pneumonia. CBC is within normal limits. CMP shows an elevated serum creatinine which is baseline for this patient at 1.57. She has a therapeutic INR 2.4. Initial troponin is -0.017. She will be placed in observation for stroke cardiac enzymes, telemetry, cardiology consultation. Case is discussed with Dr. Motta - Lab Data Result diagrams: 09/16/19 09:32 09/16/19 09:32 Lab Results 09/16/19 09/16/19 09/16/19 Range/Units 09:32 09:32 09:32 WBC 6.7 (3.8-10.6) k/uL RBC 4.18 (3.80-5.40) m/uL Hgb 12.1 (11.4-16.0) gm/dL Hct 37.7 (34.0-46.0) % MCV 90.0 (80.0-100.0) fL MCH 28.8 (25.0-35.0) pg MCHC 32.0 (31.0-37.0) g/dL RDW 14.1 (11.5-15.5) % Plt Count 230 (150-450) k/uL Neutrophils % 79 % Lymphocytes % 12 % Monocytes % 5 % Eosinophils % 4 % Basophils % 0 % Neutrophils # 5.3 (1.3-7.7) k/uL Lymphocytes # 0.8 L (1.0-4.8) k/uL Monocytes # 0.3 (0-1.0) k/uL Eosinophils # 0.2 (0-0.7) k/uL Basophils # 0.0 (0-0.2) k/uL PT 23.4 H (9.0-12.0) sec INR 2.4 H (<1.2) APTT 28.2 (22.0-30.0) sec Sodium 139 (137-145) mmol/L Potassium 3.5 (3.5-5.1) mmol/L Chloride 100 (98-107) mmol/L Carbon Dioxide 30 (22-30) mmol/L Anion Gap 9 mmol/L BUN 35 H (7-17) mg/dL Creatinine 1.57 H (0.52-1.04) mg/dL Est GFR (CKD-EPI)AfAm 34 (>60 ml/min/1.73 sqM) Est GFR (CKD-EPI)NonAf 29 (>60 ml/min/1.73 sqM) Glucose 119 H (74-99) mg/dL Calcium 8.7 (8.4-10.2) mg/dL Magnesium 2.1 (1.6-2.3) mg/dL Total Bilirubin 0.7 (0.2-1.3) mg/dL AST 20 (14-36) U/L ALT 11 (4-34) U/L Alkaline Phosphatase 103 (38-126) U/L Troponin I (0.000-0.034) ng/mL Total Protein 7.1 (6.3-8.2) g/dL Albumin 3.8 (3.5-5.0) g/dL 09/16/19 Range/Units 09:32 WBC (3.8-10.6) k/uL RBC (3.80-5.40) m/uL Hgb (11.4-16.0) gm/dL Hct (34.0-46.0) % MCV (80.0-100.0) fL MCH (25.0-35.0) pg MCHC (31.0-37.0) g/dL RDW (11.5-15.5) % Plt Count (150-450) k/uL Neutrophils % % Lymphocytes % % Monocytes % % Eosinophils % % Basophils % % Neutrophils # (1.3-7.7) k/uL Lymphocytes # (1.0-4.8) k/uL Monocytes # (0-1.0) k/uL Eosinophils # (0-0.7) k/uL Basophils # (0-0.2) k/uL PT (9.0-12.0) sec INR (<1.2) APTT (22.0-30.0) sec Sodium (137-145) mmol/L Potassium (3.5-5.1) mmol/L Chloride (98-107) mmol/L Carbon Dioxide (22-30) mmol/L Anion Gap mmol/L BUN (7-17) mg/dL Creatinine (0.52-1.04) mg/dL Est GFR (CKD-EPI)AfAm (>60 ml/min/1.73 sqM) Est GFR (CKD-EPI)NonAf (>60 ml/min/1.73 sqM) Glucose (74-99) mg/dL Calcium (8.4-10.2) mg/dL Magnesium (1.6-2.3) mg/dL Total Bilirubin (0.2-1.3) mg/dL AST (14-36) U/L ALT (4-34) U/L Alkaline Phosphatase (38-126) U/L Troponin I 0.017 (0.000-0.034) ng/mL Total Protein (6.3-8.2) g/dL Albumin (3.5-5.0) g/dL Disposition Clinical Impression: Chest pain Disposition: ADMITTED IP TO THIS [facility] Condition: Stable Is patient prescribed a controlled substance at d/c from ED?: No Referrals: Koko Gold MD [Primary Care Provider] - 1-2 days Decision to Admit Reason: Admit from EC Decision Date: 09/16/19 Decision Time: 10:51
[2019-09-16 09:49] LABS: Basophils % (A) 0 %; Eosinophils # (A) 0.2 k/uL (0-0.7); Eosinophils % (A) 4 %; HCT 37.7 % (34.0-46.0); HGB 12.1 gm/dL (11.4-16.0); Lymphocytes # (A) 0.8 k/uL (1.0-4.8); Lymphocytes % (A) 12 %; MCH 28.8 pg (25.0-35.0); Mean Platelet Volume 7.2; Monocytes # (A) 0.3 k/uL (0-1.0); Monocytes % (A) 5 %; Neutrophils # (A) 5.3 k/uL (1.3-7.7); Neutrophils % (A) 79 %; Platelet Count 230 k/uL (150-450); RBC 4.18 m/uL (3.80-5.40); RDW 14.1 % (11.5-15.5); WBC 6.7 k/uL (3.8-10.6)
[2019-09-16 09:59] LABS: Albumin 3.8 g/dL (3.5-5.0); Calcium 8.7 mg/dL (8.4-10.2); Magnesium 2.1 mg/dL (1.6-2.3); Potassium 3.5 mmol/L (3.5-5.1); Total Bilirubin 0.7 mg/dL (0.2-1.3); Total Protein 7.1 g/dL (6.3-8.2)
--- NOTE | 2019-09-16 10:24 | XR ---
EXAMINATION TYPE: XR chest 2V DATE OF EXAM: 09/16/2019 COMPARISON: Chest x-ray and CT chest January 07, 2019 HISTORY: Chest pain. TECHNIQUE: Frontal and lateral views of the chest are obtained. FINDINGS: There is chronic parenchymal change with persistent small right greater than left pleural effusions on current study. There is associated right basilar compressive atelectasis. The cardiac s ilhouette size remains enlarged with atherosclerotic thoracic aorta. The osseous structures are dem ineralized. Degenerative change bilateral glenohumeral joints.. IMPRESSION: Chronic parenchymal change and cardiomegaly with small right greater than left pleural e ffusions currently and associated patchy right basilar compressive atelectasis and/or less likely acu te infiltrate.
[2019-09-16 10:25] LABS: INR 2.4 (<1.2); Partial Thromboplastin Time 28.2 sec (22.0-30.0); Prothrombin Time 23.4 sec (9.0-12.0)
[2019-09-16] MEDS ORDERED: NALOXONE 0.4 MG/ML 1 ML VIAL IV PRN ×2 (10:48→11:40)
[2019-09-16] MEDS ORDERED: ONDANSETRON 4 MG/2 ML VIAL IVP PRN (11:40)
[2019-09-16] MEDS ORDERED: NITROGLYCERIN SL TABS 0.4 MG TAB SUBLINGUAL PRN (11:41)
--- NOTE | 2019-09-16 11:51 | P.HPIM ---
History of Present Illness H&P Date: 09/16/19 Chief Complaint: chest pain 88-year-old female with history of atrial fibrillation, previous CAD with stenting, had one stent in 2010, diastolic CHF, COPD presenting for evaluation of chest pain and upper back pain. Pain has been present for the past 3 days. Symptoms worse with exertion, associated with palpitations, nausea, diaphoresis and feeling clammy and chilly. No fevers. Patient states she did have a fall approximately 2 weeks ago onto her back. The fall occured while she was trying to get some juice at 1 am, when she was very thirsty. It occured suddenly withou t warnings. She is not sure why she fell. Does not think she lost consciousness. No other prodromal symptoms. After the fall she started having generalized aches and was seen by her primary care physician who prescribed tramadol which she has been taking but has increased her nausea. No vomiting or diarrhea. No fever. No cough. Evaluation in the emergency department with chest x-ray and EKG did not reveal acute etiology for her symptoms. Troponin was normal. She was admitted for further evaluation and management by cardiology. Review of Systems Complete review of system performed, pertinent positives per HPI, otherwise negative Past Medical History Past Medical History: Atrial Fibrillation, Coronary Artery Disease (CAD), Heart Failure, GERD/Reflux, Hyperlipidemia, Hypertension, Thyroid Disorder Additional Past Medical History / Comment(s): Coronary artery disease, chronic atrial fibrillation, hypertension, hyperlipidemia, chronic stage II kidney disease with a baseline creatinine of around 1.5, hypothyroidism, glaucoma History of Any Multi-Drug Resistant Organisms: None Reported Past Surgical History: Cholecystectomy, Heart Catheterization With Stent, Hysterectomy, Orthopedic Surgery, Tonsillectomy Additional Past Surgical History / Comment(s): right knee replacement, carpal tunnel release, "thyroidectomy", fco feet -heel spurs, cataracts-lens implants. Past Anesthesia/Blood Transfusion Reactions: No Reported Reaction Date of Last Stent Placement:: 2013 Past Psychological History: No Psychological Hx Reported Smoking Status: Former smoker Past Alcohol Use History: None Reported Past Drug Use History: None Reported - Past Family History Daughter(s) Additional Family Medical History / Comment(s): short term memory loss Father Additional Family Medical History / Comment(s): denies family history of cancer or DM in her mother Medications and Allergies Home Medications Medication Instructions Recorded Confirmed Type ALPRAZolam [Xanax] 0.5 mg PO HS 12/03/17 09/16/19 History Ergocalciferol (Vitamin D2) 50,000 unit PO SA 12/03/17 09/16/19 History [Vitamin D2] Isosorbide Mononitrate ER [Imdur] 30 mg PO DAILY 12/03/17 09/16/19 History Latanoprost [Xalatan 0.005%] 1 drop BOTH EYES HS 12/03/17 09/16/19 History Levothyroxine Sodium 112 mcg PO DAILY 12/03/17 09/16/19 History Nitroglycerin Sl Tabs [Nitrostat] 0.4 mg SUBLINGUAL Q5M PRN 06/09/18 09/16/19 History Ipratropium-Albuterol Nebulize 3 ml INHALATION RT-Q2H PRN #1 box 08/06/18 09/16/19 Rx [Duoneb 0.5 mg-3 mg/3 ml Soln] Warfarin [Coumadin] 2 mg PO HS 01/02/19 09/16/19 History Albuterol Sulfate [Ventolin HFA] 1 - 2 puff INHALATION RT-Q6H PRN 09/16/19 09/16/19 History Carvedilol [Coreg] 3.125 mg PO BID 09/16/19 09/16/19 History Furosemide [Lasix] 80 mg PO DAILY@1200 09/16/19 09/16/19 History Allergies Allergy/AdvReac Type Severity Reaction Status Date / Time brimonidine [From Simbrinza] Allergy Unknown Verified 09/16/19 10:38 brinzolamide [From Simbrinza] Allergy Unknown Verified 09/16/19 10:38 tramadol AdvReac Nausea & Verified 09/16/19 10:38 Vomiting Physical Exam Vitals: Vital Signs Temp Pulse Pulse Resp BP Pulse Ox 09/16/19 11:23 79 18 169/75 98 09/16/19 09:23 77 09/16/19 09:19 98 F 80 18 174/66 95 Intake and Output 09/15/19 09/16/19 09/16/19 22:59 06:59 14:59 Other: Weight 68.039 kg Constitutional: No acute distress, conversant, pleasant Eyes:Anicteric sclerae, moist conjunctiva, no lid-lag, PERRLA, ENMT: Oropharynx clear, no erythema, exudates Neck: Supple, FROM, no masses, or JVD, No carotid bruits, No thyromegaly Lungs: Clear to auscultation, Clear to percussion, Normal respiratory effort, no accessory muscle use Cardiovascular: Irregularly irregular, normal rate, No murmurs, gallops, or rubs, No peripheral edema Abdominal: Soft, Nontender, no guarding, rebound or rigidity, Normoactive bowel sounds, No hepatomegaly, No splenomegaly, No palpable mass Skin: Normal temperature, tone, texture, turgor, no induration, No subcutaneous nodules, No rash, lesions, No ulcers Extremities: No digital cyanosis, No clubbing, Pedal pulses intact and symmetrical, Radial pulses intact and symmetrical, No calf tenderness Psychiatric: Alert and oriented to person, place and time, appropriate affect, intact judgement Neuro: Muscles Strength 5/5 in all 4 extremities, Sensation to light touch grossly present throughout, Cranial nerves II-XII grossly intact, no focal sensory deficits Results CBC & Chem 7: 09/16/19 09:32 09/16/19 09:32 Labs: Abnormal Lab Results - Last 24 Hours (Table) 09/16/19 09/16/19 09/16/19 Range/Units 09:32 09:32 09:32 Lymphocytes # 0.8 L (1.0-4.8) k/uL PT 23.4 H (9.0-12.0) sec INR 2.4 H (<1.2) BUN 35 H (7-17) mg/dL Creatinine 1.57 H (0.52-1.04) mg/dL Glucose 119 H (74-99) mg/dL Assessment and Plan Plan: Chest pain/syncope/hx of Coronary Artery Disease Evaluation by cardiology Telemetry Cycle troponins Echo Atrial fibrillation, normal rate, chronic Continue Coumadin and Coreg COPD stable Continue nebs Chronic GERD/Reflux, Hyperlipidemia, Hypertension, Hypothyroidism Chronic stage 3 kidney disease with a baseline creatinine of around 1.5 Glaucoma All stable Resume meds Admitted to observation, expected length of stay less than 2 midnights Anticipated discharge 1-2 days Dispo: home
[2019-09-16] MEDS: FUROSEMIDE 80 MG TAB PO SCH (12:16)
[2019-09-16] MEDS: IPRATROPIUM-ALBUTEROL 3 ML NEB INHALATION PRN ×2 (12:32→15:08)
[2019-09-16] MEDS ORDERED: CARVEDILOL 3.125 MG TAB PO STA (13:59)
[2019-09-16] MEDS: MORPHINE SULFATE 4 MG/ML SYRINGE IV PRN (15:00)
[2019-09-16] MEDS: CARVEDILOL 6.25 MG TAB PO SCH (17:08)
[2019-09-16] MEDS ORDERED: CARVEDILOL 3.125 MG TAB PO SCH (17:30)
[2019-09-16] MEDS: IPRATROPIUM-ALBUTEROL 3 ML NEB INHALATION SCH (19:58)
[2019-09-16] MEDS ORDERED: WARFARIN 2 MG TAB PO SCH (21:00)
[2019-09-16] MEDS ORDERED: HEPARIN SODIUM,PORCINE 5,000 UNIT/ML 1 ML VIAL IV ONE (21:46)
[2019-09-16] MEDS ORDERED: HEPARIN SODIUM,PORCINE 5,000 UNIT/ML 1 ML VIAL IV PRN (21:46)
[2019-09-16] MEDS ORDERED: ASPIRIN 81 MG PO STA (21:47)
[2019-09-16] MEDS ORDERED: LABETALOL 200 MG TAB PO STA (21:50)
[2019-09-16] MEDS ORDERED: HEPARIN SOD,PORK IN 0.45% NACL 25,000 UNIT in 0.45% NACL 1 250ML.BAG IV SCH (22:15)
[2019-09-16] MEDS ORDERED: hydrALAZINE HCL 50 MG TAB PO STA (22:16)
[2019-09-16] MEDS: ALPRAZolam 0.5 MG TAB PO SCH (22:59)
[2019-09-16] MEDS: HYDROcodone/APAP 5-325MG 1 EACH TAB PO PRN (23:00)
[2019-09-17] MEDS ORDERED: HEPARIN SODIUM,PORCINE 5,000 UNIT/ML 1 ML VIAL IV PRN (03:07)
[2019-09-17] MEDS ORDERED: HEPARIN SODIUM,PORCINE 5,000 UNIT/ML 1 ML VIAL IV ONE ×2 (03:07→03:16)
[2019-09-17] MEDS ORDERED: HEPARIN SOD,PORK IN 0.45% NACL 25,000 UNIT in 0.45% NACL 1 250ML.BAG IV SCH (03:30)
[2019-09-17 04:15] LABS: Basophils % (A) 0 %; Eosinophils # (A) 0.3 k/uL (0-0.7); Eosinophils % (A) 6 %; HGB 11.9 gm/dL (11.4-16.0); Lymphocytes # (A) 1.4 k/uL (1.0-4.8); Lymphocytes % (A) 26 %; MCH 28.9 pg (25.0-35.0); MCHC 31.5 g/dL (31.0-37.0); Mean Platelet Volume 7.1; Monocytes # (A) 0.3 k/uL (0-1.0); Monocytes % (A) 6 %; Neutrophils # (A) 3.1 k/uL (1.3-7.7); Neutrophils % (A) 60 %; Platelet Count 173 k/uL (150-450); RBC 4.13 m/uL (3.80-5.40); RDW 14.2 % (11.5-15.5); WBC 5.3 k/uL (3.8-10.6)
[2019-09-17 04:22] LABS: INR 2.6 (<1.2); Prothrombin Time 24.9 sec (9.0-12.0)
[2019-09-17 04:44] LABS: Albumin 3.9 g/dL (3.5-5.0); Magnesium 2.3 mg/dL (1.6-2.3); Phosphorus 3.6 mg/dL (2.5-4.5); Potassium 3.3 mmol/L (3.5-5.1); Total Bilirubin 0.7 mg/dL (0.2-1.3); Total Protein 7.1 g/dL (6.3-8.2)
[2019-09-17] MEDS: LATANOPROST 0.005% OPHTH DROPS 2.5 ML BTL BOTH EYES SCH ×2 (05:37→20:29)
[2019-09-17] MEDS: LEVOTHYROXINE 112 MCG TAB PO SCH (06:11)
[2019-09-17] MEDS: CARVEDILOL 6.25 MG TAB PO SCH (06:11)
[2019-09-17] MEDS: IPRATROPIUM-ALBUTEROL 3 ML NEB INHALATION SCH ×4 (07:28→20:42)
[2019-09-17] MEDS: hydrALAZINE HCL 25 MG TAB PO SCH ×3 (08:32→20:29)
[2019-09-17] MEDS: HYDROcodone/APAP 5-325MG 1 EACH TAB PO PRN ×2 (08:33→15:30)
[2019-09-17] MEDS: amLODIPine 10 MG TAB PO SCH (08:33)
[2019-09-17] MEDS: ISOSORBIDE MONONITRATE ER 60 MG TAB.ER.24H PO SCH (08:40)
[2019-09-17] MEDS ORDERED: ISOSORBIDE MONONITRATE ER 30 MG TAB.ER.24H PO SCH (09:00)
--- NOTE | 2019-09-17 09:00 | ECHOF ---
Referral Reason:syncope, chest pain MEASUREMENTS -------- HEIGHT: 152.4 cm WEIGHT: 68.0 kg BP: 169/75 RVIDd: 3.4 cm (< 3.3) IVSd: 1.5 cm (0.6 - 1.1) LVIDd: 3.3 cm (3.9 - 5.3) LVPWd: 1.8 cm (0.6 - 1.1) IVSs: 2.0 cm LVIDs: 2.1 cm LVPWs: 2.2 cm LAESV Index (A-L): 47.94 ml/m Ao Diam: 2.7 cm (2.0 - 3.7) AV Cusp: 1.4 cm (1.5 - 2.6) MV EXCURSION: 18.395 mm (> 18.000) MV EF SLOPE: 85 mm/s (70 - 150) EPSS: 0.2 cm AV maxP.22 mmHg AV meanP.53 mmHg AR PHT: 515 ms RAP: 5.00 mmHg RVSP: 45.80 mmHg FINDINGS -------- This was a technically adequate study. The left ventricular size is normal. There is moderate concentric left ventricular hypertrophy. O verall left ventricular systolic function is normal with, an EF between 55 - 60 %. Mitral Doppler i nflow pattern suggests diastolic filling abnormality {E/E'}. The right ventricle is mildly enlarged. LA is severely dilated >40 ml/m2 The right atrial size is normal. Interatrial and interventricular septum intact. There is mild aortic regurgitation. There is mild aortic stenosis present. Peak/mean gradient acr oss the Aortic Valve is 19.22mmHg / 10.53mmHg. Moderate mitral annular calcification present. Mild mitral regurgitation is present. [id number] tricuspid regurgitation present. There is mild to moderate pulmonary hypertension. The right ventricular systolic pressure, as measured by Doppler, is 45.80mmHg. There is no pulmonic regurgitation present. The aortic root size is normal. The inferior vena cava is mildly dilated. There is no pericardial effusion. CONCLUSIONS -------- 1. This was a technically adequate study. 2. The left ventricular size is normal. 3. There is moderate concentric left ventricular hypertrophy. 4. Overall left ventricular systolic function is normal with, an EF between 55 - 60 %. 5. Mitral Doppler inflow pattern suggest diastolic filling abnormality {E/E'}. 6. The right ventricle is mildly enlarged. 7. LA is severely dilated >40 ml/m2 8. The right atrial size is normal. 9. Interatrial and interventricular septum intact. 10. There is mild aortic regurgitation. 11. There is mild aortic stenosis present. 12. Peak/mean gradient across the Aortic Valve is 19.22mmHg / 10.53mmHg. 13. Moderate mitral annular calcification present. 14. Mild mitral regurgitation is present. 15. [id number] tricuspid regurgitation present. 16. There is mild to moderate pulmonary hypertension. 17. The right ventricular systolic pressure, as measured by Doppler, is 45.80mmHg. 18. There is no pulmonic regurgitation present. 19. The aortic root size is normal. 20. The inferior vena cava is mildly dilated. 21. There is no pericardial effusion. BALANCE WHEEL HAND FILER: Olimpia James RDCS
--- NOTE | 2019-09-17 09:52 | CONS ---
RICHARD Ambrocio is an 88-year-old lady with history of coronary artery disease status post angioplasty, permanent atrial fibrillation, who presented to the hospital complaining of precordial chest pain. She describes it as a mild intensity pericardial chest pressure that came on at rest and responded to therapy after she came to the ER. She also complains of diffuse musculoskeletal pain, primarily discomfort in her back and arms. At the time of my evaluation she is pain free, hemodynamically stable and in no apparent distress. She has had 3 cardiac enzymes, 2 of the troponins were normal at 0.01, 0.02 and the 3rd 1 was elevated at 0.035. Her BUN and creatinine are elevated at 35 and 1.4. EKG shows atrial fibrillation with nonspecific ST-T wave changes. Given her clinical presentation and the elevated troponin, I advised the patient to undergo cardiac catheterization for further evaluation. Understanding risks, benefits, she wishes to be managed with optimal medical therapy at this time. The patient is on Coumadin. INR is therapeutic at 2.6. Her D-dimer was elevated on initial presentation but I do not believe there is any good reason for us to worry about her D-dimer at this time and she was adequately anticoagulated. TSH was normal at 2. Hemoglobin was normal at 11.9. PAST MEDICAL HISTORY: Significant for COPD, coronary artery disease, hypertension, and hypothyroidism. MEDICATIONS: Medications at home include Coumadin, Synthroid, Imdur, DuoNeb, Lasix, Coreg, Xanax, nitroglycerin. THE PATIENT IS ALLERGIC TO TRAMADOL AND SIMBRINZA. FAMILY HISTORY: Negative for premature coronary artery disease. SOCIAL HISTORY: Negative for smoking, EtOH abuse, or drug abuse. REVIEW OF SYSTEMS: HEENT is unremarkable. Cardiac as described above. Respiratory as described above. GI negative. negative. ALLERGY/IMMUNOLOGY: None. SKIN negative. MUSCULOSKELETAL significant for arthritis. PSYCHOSOCIAL negative. ENDOCRINE negative. DERM negative. CONSTITUTIONAL negative. ONCOLOGICAL negative. TAX MANAGER CPA negative. Rest of the system review is not relevant. EXAM: Comfortable at rest. Heart rate is 60 beats per minute. Blood pressure is 160/62. Respiratory is 18. O2 sat is 93%. There is no jugular venous distention. Carotid upstroke is normal. There is no bruit. Chest exam reveals good air entry bilaterally. Heart exam reveals first and second heart sounds. No gallop. Has a systolic murmur at the left lower sternal border. ABDOMEN: Soft. Exam of extremities did not reveal any edema. Peripheral pulses are palpable. ASSESSMENT: 1. Acute non ST-segment elevation myocardial infarction. 2. Uncontrolled hypertension. 3. Hypothyroidism. 4. Chronic obstructive pulmonary disease. PLAN: I am going to start the patient on amlodipine 10 mg daily, hydralazine 25 t.i.d., continue the Coreg that she is on. Increase the dose of Imdur to 60 mg daily. I will continue Coumadin, stop the IV heparin, obtain a 2D echo. As per patient's wishes, she will not undergo any invasive procedures at this time. MMODL / IJN: [id number] /
[2019-09-17] MEDS ORDERED: POTASSIUM CHLORIDE ER 20 MEQ TAB.ER PO STA ×2 (09:58→11:17)
--- NOTE | 2019-09-17 11:13 | XR ---
EXAMINATION TYPE: XR shoulder complete LT DATE OF EXAM: 09/17/2019 CLINICAL HISTORY: pain COMPARISON: NONE TECHNIQUE: Three views of the left shoulder are obtained. FINDINGS: There is no acute fracture/dislocation evident. The acromioclavicular and glenohumeral saleem int spaces appear moderately narrowed. The visualized ribs are intact and unremarkable. IMPRESSION: 1. There is no acute fracture or dislocation. ICD 10 NO FRACTURE, INITIAL EVALUATION
[2019-09-17] MEDS: FUROSEMIDE 80 MG TAB PO SCH (11:15)
--- NOTE | 2019-09-17 11:16 | XR ---
EXAMINATION TYPE: XR lumbar spine 2 or 3V DATE OF EXAM: 09/17/2019 CLINICAL HISTORY: pain TECHNIQUE: Three views of the lumbar spine are submitted. COMPARISON: None. FINDINGS: Very mild loss of height superior endplate of L2 of uncertain age and/or etiology. Remaining lumbar s egments are intact. Moderate to severe multilevel degenerative disc disease. Ventral and dorsal spond ylosis. Severe facet joint arthropathy. IMPRESSION: Mild loss of the height superior endplate of L2 of uncertain age and/or etiology. Degenerative change s as discussed.
--- NOTE | 2019-09-17 11:18 | XR ---
EXAMINATION TYPE: XR Hip Bilateral Complete DATE OF EXAM: 09/17/2019 CLINICAL HISTORY: pain TECHNIQUE: AP and frogleg views of the bilateral hips are obtained. COMPARISON: None. FINDINGS: Cortical lucency superior pubic ramus on the right may reflect fracture. No additional frac ture identified with absolute certainty. Proximal femora are intact. Degenerative changes noted. IMPRESSION: Cortical lucency superior pubic ramus on the right may reflect fracture.
--- NOTE | 2019-09-17 11:39 | CONS ---
CONSULTATION ADDENDUM: After my initial evaluation, patient had more than 3 second pause. Did not have any syncopal event and her history suggests that she have had at least 1 episode of syncope prior to coming in. Given the known underlying CAD and the need to use beta blockers and history of syncope and documented pause, patient needs and will benefit from a permanent pacemaker. I spoke to Dr. Rao, her primary prep person. Hopefully this will be done over the next few days. NATLAIE / NOAMN: [id number] /
[2019-09-17] MEDS: oxyCODONE-APAP 5-325MG 1 EACH TAB PO PRN (16:20)
--- NOTE | 2019-09-17 16:54 | P.PN ---
Subjective Progress Note Date: 09/17/19 Principal diagnosis: Back pain Patient is still having severe back pain. Her back hurts whenever she ambulates. She was tearful during the interview. She denied chest pain or s hortness of breath at this point. No nausea or vomiting. Objective - Vital Signs Vital signs: Vital Signs Temp 97.5 F L 09/17/19 04:24 Pulse 65 09/17/19 16:40 Resp 18 09/17/19 16:21 BP 138/61 09/17/19 16:21 Pulse Ox 97 09/17/19 16:21 Intake & Output 09/16/19 09/17/19 09/17/19 18:59 06:59 18:59 Intake Total 100 540 255.246 Balance 100 540 255.246 Weight 68.039 kg 69 kg Intake: IV 100 .9 100 Intake, IV Titration 35.246 Amount Heparin Sod,Pork in 0.45% 35.246 NaCl 25,000 unit In 0.45 % NaCl 1 250ml.bag @ 12 UNITS/KG/HR 8.165 mls/hr IV .Q24H [facility] Rx#: [id number] Oral 100 540 120 Other: Voiding Method Bedside Commode Bedside Commode # Voids 0 1 1 - Exam Constitutional: No acute distress, conversant, pleasant Eyes:Anicteric sclerae, moist conjunctiva, no lid-lag, PERRLA, ENMT: Oropharynx clear, no erythema, exudates Neck: Supple, FROM, no masses, or JVD, No carotid bruits, No thyromegaly Lungs: Clear to auscultation, Clear to percussion, Normal respiratory effort, no accessory muscle use Cardiovascular: Heart regular in rate and rhythm, No murmurs, gallops, or rubs, No peripheral edema Abdominal: Soft, Nontender, no guarding, rebound or rigidity, Normoactive bowel sounds, No hepatomegaly, No splenomegaly, No palpable mass Skin: Normal temperature, tone, texture, turgor, no induration, No subcutaneous nodules, No rash, lesions, No ulcers Extremities: No digital cyanosis, No clubbing, Pedal pulses intact and symmetrical, Radial pulses intact and symmetrical, No calf tenderness Psychiatric: Alert and oriented to person, place and time, appropriate affect, intact judgement Neuro: Muscles Strength 5/5 in all 4 extremities, Sensation to light touch grossly present throughout, Cranial nerves II-XII grossly intact, no focal sensory deficits - Labs CBC & Chem 7: 09/17/19 04:01 09/17/19 04:01 Labs: Abnormal Lab Results - Last 24 Hours (Table) 09/16/19 09/17/19 09/17/19 Range/Units 20:44 04:01 04:01 PT 24.9 H (9.0-12.0) sec INR 2.6 H (<1.2) Potassium 3.3 L (3.5-5.1) mmol/L Carbon Dioxide 33 H (22-30) mmol/L BUN 35 H (7-17) mg/dL Creatinine 1.44 H (0.52-1.04) mg/dL Troponin I 0.035 H* (0.000-0.034) ng/mL Assessment and Plan Plan: Chest pain likely NSTEMI Patient does not wish to pursue aggressive interventions including heart catheterization at this point Continue medical treatment, increase the dose of Imdur to 60 mg daily Cannot be on aspirin, already on Coumadin for A. fib Start statin Already on Coreg Syncope with pauses up to 3 seconds on telemetry According to cardiology patient will need a pacemaker Echo Atrial fibrillation, normal rate, chronic Continue Coumadin and Coreg Back pain, intractable Back x-ray showing height loss at L2, indeterminate age Consult ortho Hypertension, uncontrolled Norvasc and hydralazine added Watch blood pressure COPD stable Continue nebs Chronic GERD/Reflux, Hyperlipidemia, Hypothyroidism Chronic stage 3 kidney disease with a baseline creatinine of around 1.5 Glaucoma All stable Resume meds Anticipated discharge 2 days Dispo: home
[2019-09-17] MEDS: PRAVASTATIN SODIUM 40 MG TAB PO SCH (17:19)
[2019-09-17] MEDS: ALPRAZolam 0.5 MG TAB PO SCH (20:29)
[2019-09-17] MEDS: WARFARIN 2 MG TAB PO SCH (20:29)
[2019-09-18] MEDS: oxyCODONE-APAP 5-325MG 1 EACH TAB PO PRN ×4 (00:38→16:24)
[2019-09-18] MEDS: LEVOTHYROXINE 112 MCG TAB PO SCH (05:50)
[2019-09-18 07:36] LABS: INR 2.6 (<1.2); Prothrombin Time 25.8 sec (9.0-12.0)
--- NOTE | 2019-09-18 07:42 | P.PN ---
Progress Note - Text Progress Note Date: 09/18/19 09/18/2019 Dr. Rao came to speak with the patient regarding implantation of permanent pacemaker yesterday, her wishes at this time are just to continue current therapy. Dr. Rao's recommendation was that the patient be sent home with an event monitor and follow-up with him in the office. DNP note has been reviewed, I agree with a documented findings and plan of care. Patient was seen and examined.
[2019-09-18] MEDS: IPRATROPIUM-ALBUTEROL 3 ML NEB INHALATION SCH ×4 (08:07→20:34)
[2019-09-18] MEDS: hydrALAZINE HCL 25 MG TAB PO SCH ×3 (08:33→20:56)
[2019-09-18] MEDS: amLODIPine 10 MG TAB PO SCH (08:33)
[2019-09-18] MEDS: PRAVASTATIN SODIUM 40 MG TAB PO SCH (08:33)
[2019-09-18] MEDS: ISOSORBIDE MONONITRATE ER 60 MG TAB.ER.24H PO SCH (08:33)
[2019-09-18] MEDS ORDERED: IPRATROPIUM-ALBUTEROL 3 ML NEB INHALATION STA (09:24)
--- NOTE | 2019-09-18 10:54 | P.PN ---
Subjective Progress Note Date: 09/18/19 Principal diagnosis: Back pain Patient continues to have severe low back pain. She states that the pain medicine is not helping her much. She also complained that her DuoNeb's were not given to her on time. No other overnight issues. Objective - Vital Signs Vital signs: Vital Signs Temp 97.9 F 09/18/19 08:00 Pulse 53 L 09/18/19 09:53 Resp 18 09/18/19 08:00 BP 125/56 09/18/19 08:00 Pulse Ox 94 L 09/18/19 08:00 Intake & Output 09/17/19 09/18/19 09/18/19 18:59 06:59 18:59 Intake Total 491.246 118 Balance 491.246 118 Weight 69.2 kg Intake: IV 100 .9 100 Intake, IV Titration 35.246 Amount Heparin Sod,Pork in 0.45% 35.246 NaCl 25,000 unit In 0.45 % NaCl 1 250ml.bag @ 12 UNITS/KG/HR 8.165 mls/hr IV .Q24H [facility] Rx#: [id number] Oral 356 118 Other: Voiding Method Bedside Commode Toilet # Voids 1 1 - Exam Constitutional: No acute distress, conversant, pleasant Eyes:Anicteric sclerae, moist conjunctiva, no lid-lag, PERRLA, ENMT: Oropharynx clear, no erythema, exudates Neck: Supple, FROM, no masses, or JVD, No carotid bruits, No thyromegaly Lungs: Clear to auscultation, Clear to percussion, Normal respiratory effort, no accessory muscle use Cardiovascular: Heart regular in rate and rhythm, No murmurs, gallops, or rubs, No peripheral edema Abdominal: Soft, Nontender, no guarding, rebound or rigidity, Normoactive bowel sounds, No hepatomegaly, No splenomegaly, No palpable mass Skin: Normal temperature, tone, texture, turgor, no induration, No subcutaneous nodules, No rash, lesions, No ulcers Extremities: No digital cyanosis, No clubbing, Pedal pulses intact and symmetrical, Radial pulses intact and symmetrical, No calf tenderness Psychiatric: Alert and oriented to person, place and time, appropriate affect, intact judgement Neuro: Muscles Strength 5/5 in all 4 extremities, Sensation to light touch grossly present throughout, Cranial nerves II-XII grossly intact, no focal sensory deficits - Labs CBC & Chem 7: 09/17/19 04:01 09/17/19 04:01 Labs: Abnormal Lab Results - Last 24 Hours (Table) 09/18/19 Range/Units 06:18 PT 25.8 H (9.0-12.0) sec INR 2.6 H (<1.2) Assessment and Plan Plan: Chest pain likely NSTEMI Patient does not wish to pursue aggressive interventions including heart catheterization at this point Continue medical treatment, Imdur increased to 60 mg daily Cannot be on aspirin, already on Coumadin for A. fib Statin started Already on Coreg Syncope with pauses up to 3 seconds on telemetry, likely sick sinus syndrome According to cardiology patient will need a pacemaker Echo showing normal EF, concentric LVH, [id number] pulmonary hypertension, [id number] tricuspid regurgitation. Patient is very skeptical about having that pacemaker placed. I discussed the case with cardiology QUILL STRIPPER who was going to talk to the patient one more time to try to explain the benefits of having this procedure. Atrial fibrillation, normal rate, chronic Continue Coumadin and Coreg Back pain, intractable Back x-ray showing height loss at L2, indeterminate age Consult ortho Percoset prn Hypertension, uncontrolled Norvasc and hydralazine added Watch blood pressure COPD stable Continue nebs Chronic GERD/Reflux, Hyperlipidemia, Hypothyroidism Chronic stage 3 kidney disease with a baseline creatinine of around 1.5 Glaucoma All stable Resume meds Anticipated discharge 2 days Dispo: home
[2019-09-18] MEDS: FUROSEMIDE 80 MG TAB PO SCH (12:50)
[2019-09-18 13:29] VITALS: BMI 29.7
[2019-09-18] MEDS: WARFARIN 2 MG TAB PO SCH (20:56)
[2019-09-18] MEDS: ALPRAZolam 0.5 MG TAB PO SCH (20:56)
[2019-09-18] MEDS: LATANOPROST 0.005% OPHTH DROPS 2.5 ML BTL BOTH EYES SCH (20:57)
[2019-09-19] MEDS: IPRATROPIUM-ALBUTEROL 3 ML NEB INHALATION SCH ×7 (01:45→20:09)
[2019-09-19] MEDS: oxyCODONE-APAP 5-325MG 1 EACH TAB PO PRN ×5 (03:19→22:12)
[2019-09-19] MEDS: LEVOTHYROXINE 112 MCG TAB PO SCH (06:05)
[2019-09-19 07:47] LABS: Basophils % (A) 1 %; Eosinophils # (A) 0.3 k/uL (0-0.7); Eosinophils % (A) 6 %; HCT 35.3 % (34.0-46.0); HGB 10.7 gm/dL (11.4-16.0); Lymphocytes # (A) 1.1 k/uL (1.0-4.8); Lymphocytes % (A) 20 %; MCHC 30.2 g/dL (31.0-37.0); MCV 92.6 fL (80.0-100.0); Mean Platelet Volume 7.4; Monocytes # (A) 0.3 k/uL (0-1.0); Monocytes % (A) 5 %; Neutrophils # (A) 3.8 k/uL (1.3-7.7); Neutrophils % (A) 68 %; Platelet Count 196 k/uL (150-450); RBC 3.82 m/uL (3.80-5.40); RDW 14.4 % (11.5-15.5); WBC 5.6 k/uL (3.8-10.6)
[2019-09-19 07:55] LABS: INR 3.4 (<1.2); Prothrombin Time 33.4 sec (9.0-12.0)
[2019-09-19 08:02] LABS: Magnesium 2.3 mg/dL (1.6-2.3); Potassium 4.7 mmol/L (3.5-5.1)
[2019-09-19] MEDS: hydrALAZINE HCL 25 MG TAB PO SCH ×3 (08:53→22:11)
[2019-09-19] MEDS: PRAVASTATIN SODIUM 40 MG TAB PO SCH (08:54)
[2019-09-19] MEDS: ISOSORBIDE MONONITRATE ER 60 MG TAB.ER.24H PO SCH (08:54)
[2019-09-19] MEDS: amLODIPine 10 MG TAB PO SCH (08:56)
[2019-09-19] MEDS ORDERED: PHYTONADIONE ORAL 5 MG/5 ML ORAL.SYRG PO STA (09:21)
[2019-09-19] MEDS ORDERED: ceFAZolin 1,000 MG in SODIUM CHLORIDE 0.9% IRRIGATIO 250 ML IRRIGATION ONE (09:22)
[2019-09-19 10:14] LABS: INR 3.2 (<1.2); Prothrombin Time 31.7 sec (9.0-12.0)
[2019-09-19] MEDS: SODIUM CHLORIDE 0.9% 1,000 ML IV SCH ×2 (11:17→12:00)
--- NOTE | 2019-09-19 13:42 | P.PN ---
Subjective Progress Note Date: 09/19/19 Principal diagnosis: Back pain She is still having severe back pain. She states the pain medicine is helping but not much. Any activity would exacerbate the pain. No chest pain or shortness of breath. No fevers or chills. No other overnight events. Objective - Vital Signs Vital signs: Vital Signs Temp 97.8 F 09/19/19 12:00 Pulse 69 09/19/19 12:00 Resp 18 09/19/19 12:00 BP 158/75 09/19/19 12:00 Pulse Ox 96 09/19/19 12:00 Intake & Output 09/18/19 09/19/19 09/19/19 18:59 06:59 18:59 Intake Total 360 120 Output Total 200 Balance 360 -200 120 Weight 69.2 kg 70.4 kg Intake: Oral 360 120 Output: Urine 200 Other: Voiding Method Toilet Toilet Toilet - Exam Constitutional: No acute distress, conversant, pleasant Eyes:Anicteric sclerae, moist conjunctiva, no lid-lag, PERRLA, ENMT: Oropharynx clear, no erythema, exudates Neck: Supple, FROM, no masses, or JVD, No carotid bruits, No thyromegaly Lungs: Clear to auscultation, Clear to percussion, Normal respiratory effort, no accessory muscle use Cardiovascular: Heart regular in rate and rhythm, No murmurs, gallops, or rubs, No peripheral edema Abdominal: Soft, Nontender, no guarding, rebound or rigidity, Normoactive bowel sounds, No hepatomegaly, No splenomegaly, No palpable mass Skin: Normal temperature, tone, texture, turgor, no induration, No subcutaneous nodules, No rash, lesions, No ulcers Extremities: No digital cyanosis, No clubbing, Pedal pulses intact and symmetrical, Radial pulses intact and symmetrical, No calf tenderness Psychiatric: Alert and oriented to person, place and time, appropriate affect, intact judgement Neuro: Muscles Strength 5/5 in all 4 extremities, Sensation to light touch grossly present throughout, Cranial nerves II-XII grossly intact, no focal sensory deficits - Labs CBC & Chem 7: 09/19/19 07:12 09/19/19 07:12 Labs: Abnormal Lab Results - Last 24 Hours (Table) 06/25/20 06/25/20 06/25/20 Range/Units 07:12 07:12 07:12 Hgb 10.7 L (11.4-16.0) gm/dL MCHC 30.2 L (31.0-37.0) g/dL PT 33.4 H (9.0-12.0) sec INR 3.4 H (<1.2) Chloride 97 L (98-107) mmol/L Carbon Dioxide 33 H (22-30) mmol/L BUN 42 H (7-17) mg/dL Creatinine 1.77 H (0.52-1.04) mg/dL 09/19/19 Range/Units 09:45 Hgb (11.4-16.0) gm/dL MCHC (31.0-37.0) g/dL PT 31.7 H (9.0-12.0) sec INR 3.2 H (<1.2) Chloride (98-107) mmol/L Carbon Dioxide (22-30) mmol/L BUN (7-17) mg/dL Creatinine (0.52-1.04) mg/dL Assessment and Plan Plan: Chest pain likely NSTEMI Patient does not wish to pursue aggressive interventions including heart catheterization at this point Continue medical treatment, Imdur increased to 60 mg daily Cannot be on aspirin, already on Coumadin for A. fib Statin started Already on Coreg Syncope with pauses up to 3 seconds on telemetry, likely sick sinus syndrome Patient will go for pacemaker placement in a.m. Echo showing normal EF, concentric LVH, otll-tz-napdecwn pulmonary hypertension, fvne-ej-vsddgadc tricuspid regurgitation. Atrial fibrillation, normal rate, chronic Continue Coumadin and Coreg Back pain, intractable Back x-ray showing height loss at L2, indeterminate age Consult ortho Percoset prn Hypertension, uncontrolled Norvasc and hydralazine added Watch blood pressure COPD stable Continue nebs Chronic GERD/Reflux, Hyperlipidemia, Hypothyroidism Chronic stage 3 kidney disease with a baseline creatinine of around 1.5 Glaucoma All stable Resume meds Anticipated discharge 2 days Dispo: home with home health
--- NOTE | 2019-09-19 15:06 | P.PN ---
Subjective Progress Note Date: 09/19/19 This is a pleasant 88-year-old female who follows with Dr. Rao in the office, Dr. Gold is her primary care doctor. She has a known history of coronary artery disease with prior angioplasty, persistent atrial fibrillation, presented to the hospital initially with some symptoms of chest discomfort. She did have mild abnormality noted in her troponin and she was treated medically. Subsequently to that patient was noted to have significant pauses on the monitor, she was advised to undergo implantation of a permanent pacemaker. Dr. Rao had a lengthy discussion with her yesterday, patient was refusing yesterday to have it performed. Today another discussion was made patient continued to have pauses, she agreed to undergo implantation of a permanent pacemaker. The procedure itself was explained to her in detail as well as the risks and the benefits, Dr. Rao will perform this tomorrow. Blood pressure 158/74 with a heart rate is 68, 96% on room air. White blood cell count 5.6, hemoglobin 10.7, platelet count 196. INR is 3.2 today, sodium 138, potassium 4.7, BUN 42, creatinine 1.7. Patient will be given some oral vitamin K today, we'll check a PT/INR at 6 AM tomorrow morning tentatively schedule the patient for implantation of a permanent pacemaker tomorrow with Dr. Rao. Objective - Vital Signs Vital signs: Vital Signs Temp 97.8 F 09/19/19 12:00 Pulse 69 09/19/19 12:00 Resp 18 09/19/19 12:00 BP 158/75 09/19/19 12:00 Pulse Ox 96 09/19/19 12:00 Intake & Output 09/18/19 09/19/19 09/19/19 18:59 06:59 18:59 Intake Total 360 620 Output Total 200 Balance 360 -200 620 Weight 69.2 kg 70.4 kg Intake: Oral 360 620 Output: Urine 200 Other: Voiding Method Toilet Toilet Toilet - Exam PHYSICAL EXAMINATION: GENERAL: 88-year-old female in no acute distress at the time of my examination HEENT: Head is atraumatic, normocephalic. Pupils equal, round. Sclera anic teric. Conjunctiva are clear. Mucous membranes of the mouth are moist. Neck is supple. There is no elevated jugular venous pressure. No carotid bruit is heard. HEART EXAMINATION: Heart S1 and S2 irregularly irregular systolic murmur is heard CHEST EXAMINATION: Lungs are clear to auscultation and precussion. No chest wall tenderness is noted on palpation or with deep breathing. ABDOMEN: Soft, nontender. Bowel sounds are heard. No organomegaly noted. EXTREMITIES: 2+ peripheral pulses with no evidence of peripheral edema and no calf tenderness noted. NEUROLOGIC patient is awake, alert and oriented 3 . . - Labs CBC & Chem 7: 09/19/19 07:12 09/19/19 07:12 Labs: Abnormal Lab Results - Last 24 Hours (Table) 09/19/19 09/19/19 09/19/19 Range/Units 07:12 07:12 07:12 Hgb 10.7 L (11.4-16.0) gm/dL MCHC 30.2 L (31.0-37.0) g/dL PT 33.4 H (9.0-12.0) sec INR 3.4 H (<1.2) Chloride 97 L (98-107) mmol/L Carbon Dioxide 33 H (22-30) mmol/L BUN 42 H (7-17) mg/dL Creatinine 1.77 H (0.52-1.04) mg/dL 09/19/19 Range/Units 09:45 Hgb (11.4-16.0) gm/dL MCHC (31.0-37.0) g/dL PT 31.7 H (9.0-12.0) sec INR 3.2 H (<1.2) Chloride (98-107) mmol/L Carbon Dioxide (22-30) mmol/L BUN (7-17) mg/dL Creatinine (0.52-1.04) mg/dL Assessment and Plan Plan: Assessment and plan #1 evidence of sinus bradycardia with significant pauses greater than 4 seconds #2 persistent atrial fibrillation, was on Coumadin for anticoagulation, INR 3.2 #3 non-STEMI, medical therapy advised #4 recent fall with possible syncope #5 COPD #6 hypertension #7 hypothyroidism #8 chronic kidney disease stage III Plan Coumadin has been placed on hold, patient received 10 mg of vitamin K today, we will check a PT/INR exam. Patient is scheduled tomorrow to undergo implantation of a permanent pacemaker if the INR is less than 1.6. After the procedure when the patient is reinitiated on oral anticoagulation, we did check into Rapid [facility] for her, and will cost her $40 a month, this will be reinitiated instead of the Coumadin post procedure once cleared by Dr. Rao. DNP note has been reviewed, I agree with a documented findings and plan of care. Patient was seen and examined.
[2019-09-19] MEDS: LATANOPROST 0.005% OPHTH DROPS 2.5 ML BTL BOTH EYES SCH (19:50)
[2019-09-19] MEDS: ALPRAZolam 0.5 MG TAB PO SCH (19:50)
[2019-09-20] MEDS: IPRATROPIUM-ALBUTEROL 3 ML NEB INHALATION SCH ×5 (03:56→19:44)
[2019-09-20] MEDS: amLODIPine 10 MG TAB PO SCH (06:06)
[2019-09-20] MEDS: LEVOTHYROXINE 112 MCG TAB PO SCH (06:06)
[2019-09-20] MEDS: ISOSORBIDE MONONITRATE ER 60 MG TAB.ER.24H PO SCH (06:07)
[2019-09-20] MEDS: hydrALAZINE HCL 25 MG TAB PO SCH ×3 (06:07→20:09)
[2019-09-20] MEDS: PRAVASTATIN SODIUM 40 MG TAB PO SCH (06:07)
[2019-09-20 06:08] LABS: Glucose,Whole Blood 97 mg/dL (75-99)
[2019-09-20 06:32] LABS: INR 1.6 (<1.2); Prothrombin Time 15.3 sec (9.0-12.0)
[2019-09-20 07:55] LABS: Calcium 8.7 mg/dL (8.4-10.2); Potassium 4.6 mmol/L (3.5-5.1)
[2019-09-20] MEDS ORDERED: IOPAMIDOL-370 50ML BTL INJ ONE (08:00)
[2019-09-20] MEDS ORDERED: fentaNYL (PF) 50 MCG/ML 2 ML AMP IVP ONE (08:15)
[2019-09-20] MEDS ORDERED: LIDOCAINE 1% INJ 10MG/ML (20 ML MDV) SQ ONE (08:15)
[2019-09-20] MEDS ORDERED: MIDAZOLAM 2 MG/2 ML VIAL IVP ONE (08:15)
[2019-09-20] MEDS ORDERED: IV FLUID CONTINUATION 1,000 ML IV ONE (08:15)
[2019-09-20] MEDS ORDERED: fentaNYL (PF) 50 MCG/ML 2 ML AMP ONE (08:18)
[2019-09-20] MEDS ORDERED: ACETAMINOPHEN TAB 325 MG TAB PO PRN (09:01)
--- NOTE | 2019-09-20 09:11 | P.PCN ---
Date of Procedure: 09/20/19 Preoperative Diagnosis: Atrial fibrillation, sick sinus syndrome with long pauses of more than 4 seconds and need for beta larissa therapy Postoperative Diagnosis: The same Procedure(s) Performed: Single-chamber permanent pacemaker implantation Description of Procedure: HISTORY: This is a 88-year-old female with history of ischemic heart disease, cardiomyopathy and congestive heart failure with chronic atrial fibrillation was admitted to the hospital with episode of syncope and evidence of sick sinus syndrome with pauses up to 4 seconds. Patient is advised to have permanent pacemaker implantation, especially the need for beta larissa therapy. CONSENT:I have discussed the risks, benefits and alternative therapies for the above-mentioned procedure and for both sedation/analgesia as well as necessary blood product administration, if indicated, as they pertain to this patient. The patient has indicated understanding and acceptance of the risks and procedures discussed. PROCEDURE: Patient was brought to the lab in a fasting state. Patient was prepped and draped in the usual fashion. Patient was given IV sedation with fentanyl and Versed. The skin below the left clavicle was infiltrated with lidocaine. An incision was made parallel to deltopectoral groove was deepened until the pectoral fascia was exposed. A pocket was created by blunt dissection and cautery. Axillary venography was performed to delineate the course of the axillary vein. A single venous stick was performed into extrathoracic portion of the axillary vein and a single introducer sheath ws advanced over the guidewires and left in subclavian vein. Conscious Sedation: Versed 1mg Fentanyl 25 g Duration 46minutes LEADS: VENTRICULAR: This is manufactured by [employer]. Model number is 5076-52 and the serial number is [id number] THE DEVICE: This is manufactured by [employer]. Model number is [id number] And the serial number is [id number] . The ventricular lead is maneuvered l with help of a straight and curved stylets into the left ventricle apical region. Satisfactory position was obtained and threshold measurements were made. THRESHOLDS: VENTRICLE: The minimum patient threshold was 0.75 at pulse width of 0.4 with impedance of 969 R-wave: 9.3 The leads and pulse generator remained in the pocket after it was washed with antibiotics. Pocket was closed in the usual fashion. The fascia was closed with 2-0 Prolene ,the subcutaneous tissue was closed with 3-0 Prolene and the skin was closed with 4-0 Prolene. PROGRAMMING: MODE: VVIR RATE: 60- 120 OUTPUT: Ventricle: 3.5 FINAL IMPRESSION: , 1. Axillary venography #2. Successful implantation of single-chamber pacemaker COMPLICATIONS: None PLAN: Angina antibiotic. Monitored on the telemetry unit. Increase activity as tolerated. Resume Coumadin. Possible discharge in 24 hours
[2019-09-20] MEDS: MORPHINE SULFATE 4 MG/ML SYRINGE IV PRN (10:01)
[2019-09-20] MEDS: oxyCODONE-APAP 5-325MG 1 EACH TAB PO PRN ×3 (12:45→21:20)
--- NOTE | 2019-09-20 14:11 | P.PN ---
Subjective Progress Note Date: 09/20/19 Principal diagnosis: Back pain Patient status post pacemaker placement today, she is still complaining of right-sided pain and low back pain. Objective - Vital Signs Vital signs: Vital Signs Temp 97.5 F L 09/20/19 09:30 Pulse 83 09/20/19 11:46 Resp 18 09/20/19 11:46 BP 122/58 09/20/19 11:46 Pulse Ox 95 09/20/19 11:46 Intake & Output 09/19/19 09/20/19 09/20/19 18:59 06:59 18:59 Intake Total 980 250 150 Output Total 200 Balance 980 50 150 Weight 72 kg Intake: IV 150 Intake, IV Titration 250 Amount Sodium Chloride 0.9% 1, 250 000 ml @ 50 mls/hr IV . [facility]H [facility] Rx#:[id number] Oral 980 Output: Urine 200 Other: Voiding Method Toilet Toilet Toilet # Voids 3 1 0 - Exam Constitutional: No acute distress, conversant, pleasant Eyes:Anicteric sclerae, moist conjunctiva, no lid-lag, PERRLA, ENMT: Oropharynx clear, no erythema, exudates Neck: Supple, FROM, no masses, or JVD, No carotid bruits, No thyromegaly Lungs: Clear to auscultation, Clear to percussion, Normal respiratory effort, no accessory muscle use Cardiovascular: Heart regular in rate and rhythm, No murmurs, gallops, or rubs, No peripheral edema Abdominal: Soft, Nontender, no guarding, rebound or rigidity, Normoactive bowel sounds, No hepatomegaly, No splenomegaly, No palpable mass Skin: Normal temperature, tone, texture, turgor, no induration, No subcutaneous nodules, No rash, lesions, No ulcers Extremities: No digital cyanosis, No clubbing, Pedal pulses intact and symmetrical, Radial pulses intact and symmetrical, No calf tenderness Psychiatric: Alert and oriented to person, place and time, appropriate affect, intact judgement Neuro: Muscles Strength 5/5 in all 4 extremities, Sensation to light touch grossly present throughout, Cranial nerves II-XII grossly intact, no focal s ensory deficits - Labs CBC & Chem 7: 09/19/19 07:12 09/20/19 06:02 Labs: Abnormal Lab Results - Last 24 Hours (Table) 09/20/19 09/20/19 Range/Units 06:02 06:02 PT 15.3 H (9.0-12.0) sec INR 1.6 H (<1.2) Sodium 134 L (137-145) mmol/L Chloride 97 L (98-107) mmol/L Carbon Dioxide 31 H (22-30) mmol/L BUN 38 H (7-17) mg/dL Creatinine 1.61 H (0.52-1.04) mg/dL Assessment and Plan Plan: Chest pain likely NSTEMI Patient does not wish to pursue aggressive interventions including heart catheterization at this point Continue medical treatment, Imdur increased to 60 mg daily Cannot be on aspirin, already on AC for A. fib Statin started Already on Coreg Syncope with pauses up to 4 seconds on telemetry, likely sick sinus syndrome s/p pacemaker placement Echo showing normal EF, concentric LVH, mmbo-jo-atynsinz pulmonary hypertension, ptbw-[id number] tricuspid regurgitation. Atrial fibrillation, normal rate, chronic We'll switch to eliquis, discontinuing Coumadin, continue Coreg Back pain, intractable/right pelvic pain Patient has right pubic fracture Back x-ray showing height loss at L2, indeterminate age Was seen by orthopedic PA, no intervention needed Percoset prn Hypertension, uncontrolled Norvasc and hydralazine added Watch blood pressure COPD stable Continue nebs Chronic GERD/Reflux, Hyperlipidemia, Hypothyroidism Chronic stage 3 kidney disease with a baseline creatinine of around 1.5 Glaucoma All stable Resume meds D/W cardiology [employer] and RN Anticipated discharge 1 days Dispo: home with home health
[2019-09-20] MEDS: LATANOPROST 0.005% OPHTH DROPS 2.5 ML BTL BOTH EYES SCH (20:09)
[2019-09-20] MEDS: ALPRAZolam 0.5 MG TAB PO SCH (20:09)
[2019-09-20] MEDS ORDERED: APIXABAN 5 MG TAB PO SCH (21:00)
[2019-09-20] MEDS: SODIUM CHLORIDE 0.9% 1,000 ML IV SCH (22:49)
[2019-09-21] MEDS: IPRATROPIUM-ALBUTEROL 3 ML NEB INHALATION SCH ×8 (00:11→23:46)
[2019-09-21] MEDS: SODIUM CHLORIDE 0.9% 1,000 ML IV SCH ×3 (01:16→22:04)
[2019-09-21] MEDS: LEVOTHYROXINE 112 MCG TAB PO SCH (06:00)
--- NOTE | 2019-09-21 06:56 | XR ---
EXAMINATION TYPE: XR chest 2V DATE OF EXAM: 09/21/2019 HISTORY: Lead placement check. REFERENCE: Previous study dated 09/16/2019. FINDINGS: There is a unipolar pacemaker place on the left. There is a worsening right-sided effusion. There is a small left-sided effusion. There is bibasilar a irspace disease. There is vascular congestion and mild edema. IMPRESSION: 1. WORSENING RIGHT-SIDED EFFUSION. 2. CHANGES COMPATIBLE WITH MILD CONGESTIVE HEART FAILURE.
[2019-09-21] MEDS ORDERED: FUROSEMIDE 10 MG/ML 2 ML VIAL IV ONE (07:58)
[2019-09-21] MEDS: PRAVASTATIN SODIUM 40 MG TAB PO SCH (08:09)
[2019-09-21] MEDS: hydrALAZINE HCL 25 MG TAB PO SCH ×3 (08:09→21:46)
[2019-09-21] MEDS: amLODIPine 10 MG TAB PO SCH (08:09)
[2019-09-21] MEDS: ISOSORBIDE MONONITRATE ER 60 MG TAB.ER.24H PO SCH (08:09)
[2019-09-21] MEDS: oxyCODONE-APAP 5-325MG 1 EACH TAB PO PRN ×3 (08:14→16:18)
[2019-09-21 09:00] LABS: Calcium 8.8 mg/dL (8.4-10.2); Potassium 4.7 mmol/L (3.5-5.1)
[2019-09-21] MEDS ORDERED: ERGOCALCIFEROL 50,000 UNIT CAP PO SCH (09:00)
--- NOTE | 2019-09-21 10:39 | P.PN ---
Subjective Progress Note Date: 09/21/19 Principal diagnosis: Back pain Has been doing ok, still with various musculoskeletal pains and aches. Complaining from some discomfort in the pacemaker placement site. Objective - Vital Signs Vital signs: Vital Signs Temp 97.7 F 09/21/19 08:00 Pulse 76 09/21/19 09:05 Resp 16 09/21/19 08:00 BP 131/67 09/21/19 08:00 Pulse Ox 96 09/21/19 08:00 Intake & Output 09/20/19 09/21/19 09/21/19 18:59 06:59 18:59 Intake Total 150 Balance 150 Weight 73.5 kg Intake: IV 150 Other: Voiding Method Toilet Toilet Toilet # Voids 1 1 - Exam Constitutional: No acute distress, conversant, pleasant Eyes:Anicteric sclerae, moist conjunctiva, no lid-lag, PERRLA, ENMT: Oropharynx clear, no erythema, exudates Neck: Supple, FROM, no masses, or JVD, No carotid bruits, No thyromegaly Lungs: Clear to auscultation, Clear to percussion, Normal respiratory effort, no accessory muscle use Cardiovascular: Heart regular in rate and rhythm, No murmurs, gallops, or rubs, No peripheral edema Abdominal: Soft, Nontender, no guarding, rebound or rigidity, Normoactive bowel sounds, No hepatomegaly, No splenomegaly, No palpable mass Skin: Normal temperature, tone, texture, turgor, no induration, No subcutaneous nodules, No rash, lesions, No ulcers Extremities: No digital cyanosis, No clubbing, Pedal pulses intact and symmetrical, Radial pulses intact and symmetrical, No calf tenderness Psychiatric: Alert and oriented to person, place and time, appropriate affect, intact judgement Neuro: Muscles Strength 5/5 in all 4 extremities, Sensation to light touch grossly present throughout, Cranial nerves II-XII grossly intact, no focal sensory deficits - Labs CBC & Chem 7: 09/19/19 07:12 09/21/19 08:11 Labs: Abnormal Lab Results - Last 24 Hours (Table) 09/21/19 Range/Units 08:11 Sodium 135 L (137-145) mmol/L BUN 29 H (7-17) mg/dL Creatinine 1.46 H (0.52-1.04) mg/dL Assessment and Plan Plan: Chest pain likely NSTEMI Patient does not wish to pursue aggressive interventions including heart catheterization at this point Continue medical treatment, Imdur increased to 60 mg daily Cannot be on aspirin, already on AC for A. fib Statin started Already on Coreg Syncope with pauses up to 4 seconds on telemetry, likely sick sinus syndrome s/p pacemaker placement Echo showing normal EF, concentric LVH, [id number] pulmonary hypertension, [id number] tricuspid regurgitation. Atrial fibrillation, normal rate, chronic Was on coumadin, Starting eliquis Continue Coreg Back pain, intractable/right pelvic pain Patient has right pubic fracture Back x-ray showing height loss at L2, indeterminate age Was seen by orthopedic PA, no intervention needed Percoset prn Hypertension, uncontrolled Norvasc and hydralazine added Watch blood pressure COPD stable Continue nebs Chronic GERD/Reflux, Hyperlipidemia, Hypothyroidism Chronic stage 3 kidney disease with a baseline creatinine of around 1.5 Glaucoma All stable Resume meds Anticipated discharge tomorrow Dispo: home with home health
[2019-09-21] MEDS: APIXABAN 2.5 MG TABLET PO SCH ×2 (11:01→21:46)
--- NOTE | 2019-09-21 12:25 | P.PN ---
Subjective Progress Note Date: 09/21/19 This is a pleasant 88-year-old female who follows with Dr. Rao in the office, Dr. Gold is her primary care doctor. She has a known history of coronary artery disease with prior angioplasty, persistent atrial fibrillation, presented to the hospital initially with some symptoms of chest discomfort. She did have mild abnormality noted in her troponin and she was treated medically. Subsequently to that patient was noted to have significant pauses on the monitor, she was advised to undergo implantation of a permanent pacemaker. Dr. Rao had a lengthy discussion with her yesterday, patient was refusing yesterday to have it performed. Today another discussion was made patient continued to have pauses, she agreed to undergo implantation of a permanent pacemaker. The procedure itself was explained to her in detail as well as the risks and the benefits, Dr. Rao will perform this tomorrow. Blood pressure 158/74 with a heart rate is 68, 96% on room air. White blood cell count 5.6, hemoglobin 10.7, platelet count 196. INR is 3.2 today, sodium 138, potassium 4.7, BUN 42, creatinine 1.7. Patient will be given some oral vitamin K today, we'll check a PT/INR at 6 AM tomorrow morning tentatively schedule the patient for implantation of a permanent pacemaker tomorrow with Dr. Rao. 09/21/2019 Patient seen and examined this morning, underwent implantation of a permanent pacemaker yesterday by Dr. Rao. Device was interrogated and is functioning appropriately. Chest x-ray did not reveal any evidence of a pneumothorax, it did show a worsening right-sided effusion and some congestive heart failure. Patient was given a one-time dose of IV Lasix. Sodium 135, potassium 4.7, BUN 29, creatinine 1.4. She was also resumed today on her Eliquis by primary. We will give her one more dose of IV Lasix this evening, check her labs in the morning and plan for possible discharge in 24 hours if stable. Objective - Vital Signs Vital signs: Vital Signs Temp 97.6 F 09/21/19 11:03 Pulse 66 09/21/19 11:03 Resp 16 09/21/19 11:03 BP 113/55 09/21/19 11:03 Pulse Ox 94 L 09/21/19 11:03 Intake & Output 09/20/19 09/21/19 09/21/19 18:59 06:59 18:59 Intake Total 150 370 Output Total 300 Balance 150 70 Weight 73.5 kg Intake: IV 150 10 .9 10 Oral 360 Output: Urine 300 Other: Voiding Method Toilet Toilet Toilet # Voids 1 1 - Exam PHYSICAL EXAMINATION: GENERAL: 88-year-old female in no acute distress at the time of my examination HEENT: Head is atraumatic, normocephalic. Pupils equal, round. Sclera anicteric. Conjunctiva are clear. Mucous membranes of the mouth are moist. Neck is supple. There is no elevated jugular venous pressure. No carotid bruit is heard. HEART EXAMINATION: Heart S1 and S2 irregularly irregular systolic murmur is heard CHEST EXAMINATION: Lungs are clear with fine rales heard at the base . No chest wall tenderness is noted on palpation or with deep breathing. Site of pacemaker implantation dressing is dry and intact ABDOMEN: Soft, nontender. Bowel sounds are heard. No organomegaly noted. EXTREMITIES: 2+ peripheral pulses with no evidence of peripheral edema and no calf tenderness noted. NEUROLOGIC patient is awake, alert and oriented 3 . . - Labs CBC & Chem 7: 09/19/19 07:12 09/21/19 08:11 Labs: Abnormal Lab Results - Last 24 Hours (Table) 09/21/19 Range/Units 08:11 Sodium 135 L (137-145) mmol/L BUN 29 H (7-17) mg/dL Creatinine 1.46 H (0.52-1.04) mg/dL Assessment and Plan Plan: Assessment and plan #1 evidence of sinus bradycardia with significant pauses greater than 4 seconds, status post implantation of a permanent pacemaker #2 persistent atrial fibrillation, now on Eliquis for anticoagulation #3 non-STEMI, medical therapy advised #4 recent fall with possible syncope #5 COPD #6 hypertension #7 hypothyroidism #8 chronic kidney disease stage III Plan Patient received one dose of IV Lasix this morning, we will give her one more dose of IV Lasix this evening. Eliquis has been initiated. Plan for possible discharge home in 24 hours if stable. DNP note has been reviewed, I agree with a documented findings and plan of care. Patient was seen and examined.
[2019-09-21] MEDS: LATANOPROST 0.005% OPHTH DROPS 2.5 ML BTL BOTH EYES SCH (21:46)
[2019-09-21] MEDS: ALPRAZolam 0.5 MG TAB PO SCH (21:46)
[2019-09-22] MEDS: IPRATROPIUM-ALBUTEROL 3 ML NEB INHALATION SCH ×5 (03:33→20:11)
[2019-09-22] MEDS: LEVOTHYROXINE 112 MCG TAB PO SCH (06:21)
[2019-09-22] MEDS: oxyCODONE-APAP 5-325MG 1 EACH TAB PO PRN ×3 (06:22→15:31)
[2019-09-22] MEDS: hydrALAZINE HCL 25 MG TAB PO SCH ×3 (07:34→21:06)
[2019-09-22] MEDS: amLODIPine 10 MG TAB PO SCH (07:34)
[2019-09-22] MEDS: APIXABAN 2.5 MG TABLET PO SCH ×2 (07:34→21:06)
[2019-09-22] MEDS: ISOSORBIDE MONONITRATE ER 60 MG TAB.ER.24H PO SCH (07:34)
[2019-09-22] MEDS: PRAVASTATIN SODIUM 40 MG TAB PO SCH (07:35)
--- NOTE | 2019-09-22 12:16 | P.PN ---
Subjective Progress Note Date: 09/22/19 This is a pleasant 88-year-old female who follows with Dr. Rao in the office, Dr. Gold is her primary care doctor. She has a known history of coronary artery disease with prior angioplasty, persistent atrial fibrillation, presented to the hospital initially with some symptoms of chest discomfort. She did have mild abnormality noted in her troponin and she was treated medically. Subsequently to that patient was noted to have significant pauses on the monitor, she was advised to undergo implantation of a permanent pacemaker. Dr. Rao had a lengthy discussion with her yesterday, patient was refusing yesterday to have it performed. Today another discussion was made patient continued to have pauses, she agreed to undergo implantation of a permanent pacemaker. The procedure itself was explained to her in detail as well as the risks and the benefits, Dr. Rao will perform this tomorrow. Blood pressure 158/74 with a heart rate is 68, 96% on room air. White blood cell count 5.6, hemoglobin 10.7, platelet count 196. INR is 3.2 today, sodium 138, potassium 4.7, BUN 42, creatinine 1.7. Patient will be given some oral vitamin K today, we'll check a PT/INR at 6 AM tomorrow morning tentatively schedule the patient for implantation of a permanent pacemaker tomorrow with Dr. Rao. 09/21/2019 Patient seen and examined this morning, underwent implantation of a permanent pacemaker yesterday by Dr. Rao. Device was interrogated and is functioning appropriately. Chest x-ray did not reveal any evidence of a pneumothorax, it did show a worsening right-sided effusion and some congestive heart failure. Patient was given a one-time dose of IV Lasix. Sodium 135, potassium 4.7, BUN 29, creatinine 1.4. She was also resumed today on her Eliquis by primary. We will give her one more dose of IV Lasix this evening, check her labs in the morning and plan for possible discharge in 24 hours if stable. 09/22/2019 Patient seen and examined this morning, hemodynamically stable. Blood pressure 110/50 with a heart rate in the 70s, 97% on 3 L of oxygen. The family is not wishing for the patient to go to rehab, they want her to go home post discharge. The plan for this is possibly tomorrow. From cardiology's perspective she may be discharged once cleared by primary. We'll make her a follow-up appointment in the office with Dr. Rao in with the device clinic. Objective - Vital Signs Vital signs: Vital Signs Temp 98.2 F 09/22/19 11:05 Pulse 75 09/22/19 11:05 Resp 18 09/22/19 11:05 BP 110/46 09/22/19 11:05 Pulse Ox 97 09/22/19 11:05 Intake & Output 09/21/19 09/22/19 09/22/19 18:59 06:59 18:59 Intake Total 1060 250 Output Total 600 Balance 460 250 Weight 74 kg Intake: IV 20 10 .9 20 10 Oral 1040 240 Output: Urine 600 Other: Voiding Method Toilet Toilet Bedside Commode # Voids 1 - Exam PHYSICAL EXAMINATION: GENERAL: 88-year-old female in no acute distress at the time of my examination HEENT: Head is atraumatic, normocephalic. Pupils equal, round. Sclera anicteric. Conjunctiva are clear. Mucous membranes of the mouth are moist. Neck is supple. There is no elevated jugular venous pressure. No carotid bruit is heard. HEART EXAMINATION: Heart S1 and S2 irregularly irregular systolic murmur is heard CHEST EXAMINATION: Lungs are clear with fine rales heard at the base . No chest wall tenderness is noted on palpation or with deep breathing. Site of pacemaker implantation dressing is dry and intact ABDOMEN: Soft, nontender. Bowel sounds are heard. No organomegaly noted. EXTREMITIES: 2+ peripheral pulses with no evidence of peripheral edema and no calf tenderness noted. NEUROLOGIC patient is awake, alert and oriented 3 . . - Labs CBC & Chem 7: 09/19/19 07:12 09/21/19 08:11 Assessment and Plan Plan: Assessment and plan #1 evidence of sinus bradycardia with significant pauses greater than 4 seconds, status post implantation of a permanent pacemaker #2 persistent atrial fibrillation, now on Eliquis for anticoagulation #3 non-STEMI, medical therapy advised #4 recent fall with possible syncope #5 COPD #6 hypertension #7 hypothyroidism #8 chronic kidney disease stage III Plan From cardiology's perspective we will continue the patient on current medications. She may be able to be discharged from our standpoint, plan is for possible discharge in the morning tomorrow. We will make her a follow-up appointment with Dr. Rao in the office in the device clinic. DNP note has been reviewed, I agree with a documented findings and plan of care. Patient was seen and examined.
[2019-09-22] MEDS: FUROSEMIDE 40 MG TAB PO SCH (15:32)
--- NOTE | 2019-09-22 17:33 | P.PN ---
Subjective Progress Note Date: 09/22/19 Principal diagnosis: Back pain Patient feels slightly better today, shortness of breath is improving. Still having back pain. No fevers or chills, no nausea or vomiting,. No other overnight events. Objective - Vital Signs Vital signs: Vital Signs Temp 97.8 F 09/22/19 15:15 Pulse 82 09/22/19 15:58 Resp 20 09/22/19 15:15 BP 116/66 09/22/19 15:15 Pulse Ox 96 09/22/19 15:49 Intake & Output 09/21/19 09/22/19 09/22/19 18:59 06:59 18:59 Intake Total 1060 610 Output Total 600 Balance 460 610 Weight 74 kg Intake: IV 20 10 .9 20 10 Oral 1040 600 Output: Urine 600 Other: Voiding Method Toilet Toilet Bedside Commode # Voids 1 - Exam Constitutional: No acute distress, conversant, pleasant Eyes:Anicteric sclerae, moist conjunctiva, no lid-lag, PERRLA, ENMT: Oropharynx clear, no erythema, exudates Neck: Supple, FROM, no masses, or JVD, No carotid bruits, No thyromegaly Lungs: Clear to auscultation, Clear to percussion, Normal respiratory effort, no accessory muscle use Cardiovascular: Heart regular in rate and rhythm, No murmurs, gallops, or rubs, No peripheral edema Abdominal: Soft, Nontender, no guarding, rebound or rigidity, Normoactive bowel sounds, No hepatomegaly, No splenomegaly, No palpable mass Skin: Normal temperature, tone, texture, turgor, no induration, No subcutaneous nodules, No rash, lesions, No ulcers Extremities: No digital cyanosis, No clubbing, Pedal pulses intact and symmetrical, Radial pulses intact and symmetrical, No calf tenderness Psychiatric: Alert and oriented to person, place and time, appropriate affect, intact judgement Neuro: Muscles Strength 5/5 in all 4 extremities, Sensation to light touch grossly present throughout, Cranial nerves II-XII grossly intact, no focal sensory deficits - Labs CBC & Chem 7: 09/19/19 07:12 09/21/19 08:11 Assessment and Plan Plan: Chest pain likely NSTEMI Patient does not wish to pursue aggressive interventions including heart catheterization at this point Continue medical treatment, Imdur increased to 60 mg daily Cannot be on aspirin, already on AC for A. fib Statin started Already on Coreg Syncope with pauses up to 4 seconds on telemetry, likely sick sinus syndrome s/p pacemaker placement Echo showing normal EF, concentric LVH, [id number] pulmonary hypertension, [id number] tricuspid regurgitation. Atrial fibrillation, normal rate, chronic Was on coumadin, Started eliquis Continue Coreg Shortness of breath likely secondary to fluid overload Lasix IV given on 09/20, resume oral Lasix that she takes at home. Back pain, intractable/right pelvic pain Patient has right pubic fracture Back x-ray showing height loss at L2, indeterminate age Was seen by orthopedic PA, no intervention needed Percoset prn Hypertension, uncontrolled Norvasc and hydralazine added Watch blood pressure COPD stable Continue nebs Chronic GERD/Reflux, Hyperlipidemia, Hypothyroidism Chronic stage 3 kidney disease with a baseline creatinine of around 1.5 Glaucoma All stable Resume meds Anticipated discharge tomorrow Dispo: home with home health
[2019-09-22] MEDS: LATANOPROST 0.005% OPHTH DROPS 2.5 ML BTL BOTH EYES SCH (21:06)
[2019-09-22] MEDS: ALPRAZolam 0.5 MG TAB PO SCH (21:06)
[2019-09-23] MEDS: IPRATROPIUM-ALBUTEROL 3 ML NEB INHALATION SCH ×5 (02:19→15:18)
[2019-09-23] MEDS: LEVOTHYROXINE 112 MCG TAB PO SCH (06:20)
[2019-09-23] MEDS: ISOSORBIDE MONONITRATE ER 60 MG TAB.ER.24H PO SCH (09:07)
[2019-09-23] MEDS: APIXABAN 2.5 MG TABLET PO SCH (09:07)
[2019-09-23] MEDS: amLODIPine 10 MG TAB PO SCH (09:07)
[2019-09-23] MEDS: PRAVASTATIN SODIUM 40 MG TAB PO SCH (09:07)
[2019-09-23] MEDS: hydrALAZINE HCL 25 MG TAB PO SCH ×2 (09:07→15:50)
[2019-09-23] MEDS: FUROSEMIDE 40 MG TAB PO SCH (09:08)
--- NOTE | 2019-09-23 09:34 | P.PN ---
Subjective Progress Note Date: 09/23/19 This is a pleasant 88-year-old female who follows with Dr. Rao in the office, Dr. Gold is her primary care doctor. She has a known history of coronary artery disease with prior angioplasty, persistent atrial fibrillation, presented to the hospital initially with some symptoms of chest discomfort. She did have mild abnormality noted in her troponin and she was treated medically. Subsequently to that patient was noted to have significant pauses on the monitor, she was advised to undergo implantation of a permanent pacemaker. Dr. Rao had a lengthy discussion with her yesterday, patient was refusing yesterday to have it performed. Today another discussion was made patient continued to have pauses, she agreed to undergo implantation of a permanent pacemaker. The procedure itself was explained to her in detail as well as the risks and the benefits, Dr. Rao will perform this tomorrow. Blood pressure 158/74 with a heart rate is 68, 96% on room air. White blood cell count 5.6, hemoglobin 10.7, platelet count 196. INR is 3.2 today, sodium 138, potassium 4.7, BUN 42, creatinine 1.7. Patient will be given some oral vitamin K today, we'll check a PT/INR at 6 AM tomorrow morning tentatively schedule the patient for implantation of a permanent pacemaker tomorrow with Dr. Rao. 09/21/2019 Patient seen and examined this morning, underwent implantation of a permanent pacemaker yesterday by Dr. Rao. Device was interrogated and is functioning appropriately. Chest x-ray did not reveal any evidence of a pneumothorax, it did show a worsening right-sided effusion and some congestive heart failure. Patient was given a one-time dose of IV Lasix. Sodium 135, potassium 4.7, BUN 29, creatinine 1.4. She was also resumed today on her Eliquis by primary. We will give her one more dose of IV Lasix this evening, check her labs in the morning and plan for possible discharge in 24 hours if stable. 09/22/2019 Patient seen and examined this morning, hemodynamically stable. Blood pressure 110/50 with a heart rate in the 70s, 97% on 3 L of oxygen. The family is not wishing for the patient to go to rehab, they want her to go home post discharge. The plan for this is possibly tomorrow. From cardiology's perspective she may be discharged once cleared by primary. We'll make her a follow-up appointment in the office with Dr. Rao in with the device clinic. 09/23/2019 Patient seen and examined this morning, overall doing well. Blood pressure 118/50 with a heart rate in the 60s, 90% on 3 L of oxygen. Objective - Vital Signs Vital signs: Vital Signs Temp 97.8 F 09/23/19 08:55 Pulse 67 09/23/19 08:55 Resp 16 09/23/19 08:55 BP 118/54 09/23/19 08:55 Pulse Ox 98 09/23/19 08:55 Intake & Output 09/22/19 09/23/19 09/23/19 18:59 06:59 18:59 Intake Total 730 10 20 Balance 730 10 20 Weight 69.9 kg Intake: IV 10 10 .9 10 Invasive Line 3 10 Oral 720 20 Other: Voiding Method Bedside Commode Bedside Commode # Voids 1 - Exam PHYSICAL EXAMINATION: GENERAL: 88-year-old female in no acute distress at the time of my examination HEENT: Head is atraumatic, normocephalic. Pupils equal, round. Sclera anicteric. Conjunctiva are clear. Mucous membranes of the mouth are moist. Neck is supple. There is no elevated jugular venous pressure. No carotid bruit is heard. HEART EXAMINATION: Heart S1 and S2 irregularly irregular systolic murmur is heard CHEST EXAMINATION: Lungs are clear with fine rales heard at the base . No chest wall tenderness is noted on palpation or with deep breathing. Site of pacemaker implantation dressing is dry and intact ABDOMEN: Soft, nontender. Bowel sounds are heard. No organomegaly noted. EXTREMITIES: 2+ peripheral pulses with no evidence of peripheral edema and no calf tenderness noted. NEUROLOGIC patient is awake, alert and oriented 3 . . - Labs CBC & Chem 7: 09/19/19 07:12 09/21/19 08:11 Assessment and Plan Plan: Assessment and plan #1 evidence of sinus bradycardia with significant pauses greater than 4 seconds, status post implantation of a permanent pacemaker #2 persistent atrial fibrillation, now on Eliquis for anticoagulation #3 non-STEMI, medical therapy advised #4 recent fall with possible syncope #5 COPD #6 hypertension #7 hypothyroidism #8 chronic kidney disease stage III Plan From cardiology's perspective we will continue the patient on current medications. She may be able to be discharged from our standpoint, plan is for possible discharge in the morning tomorrow. We will make her a follow-up appointment with Dr. Rao in the office in the device clinic. DNP note has been reviewed, I agree with a documented findings and plan of care. Patient was seen and examined.
[2019-09-23] MEDS: oxyCODONE-APAP 5-325MG 1 EACH TAB PO PRN (11:39)
[2019-09-23 14:11] VITALS: BP 118/61; RESP 18; TEMP 97.7
[2019-09-23 15:27] VITALS: PULSE 84
--- NOTE | 2019-09-23 16:09 | P.DS ---
Providers Date of admission: 09/17/19 10:25 Expected date of discharge: 09/23/19 Attending physician: Nithya Motta MD Consults: 09/16/19 10:49 Consult Physician Routine Consulting Provider: Elio Mejía Consult Reason/Comments: CP Do you want consulting provider notified?: Yes Primary care physician: [facility] [place] Course: 88-year-old female with history of atrial fibrillation, previous CAD with stenting, had one stent in 2010, diastolic CHF, COPD presenting for evaluation of chest pain and upper back pain. Pain has been present for the past 3 days. Symptoms worse with exertion, associated with palpitations, nausea, diaphoresis and feeling clammy and chilly. No fevers. Patient states she did have a fall approximately 2 weeks ago onto her back. The fall occured while she was trying to get some juice at 1 am, when she was very thirsty. It occured suddenly without warnings. She is not sure why she fell. Does not think she lost consciousness. No other prodromal symptoms. After the fall she started having generalized aches and was seen by her primary care physician who prescribed tramadol which she has been taking but has increased her nausea. No vomiting or diarrhea. No fever. No cough. Evaluation in the emergency department with chest x-ray and EKG did not reveal acute etiology for her symptoms. Troponin was normal. She was admitted for further evaluation and management by cardiology. Upon admission and cycling the troponin did bump up to 0.035. She was diagnosed with acute myocardial infarction, non-ST elevation. She was seen by cardiology. The myocardial infarction was medically managed. She was already anticoagulated on Coumadin. Her Imdur dose was increased from 30 mg to 60 mg. In addition statin was added to her regimen. She was not started on aspirin as she was already on anticoagulation. she was already taking Coreg and that was resumed. On telemetry monitoring she kept having consistent pauses, longest was 20 sec. Cardiology placed a pacemaker. She tolerated the procedure well. She did have an echocardiogram that showed normal EF, concentric LVH, [id number] pulmonary hypertension, [id number] tricuspid regurgitation. During the hospitalization patient kept having constant back pain, back x-ray revealed some height loss at L2, indeterminate age. She was seen by orthopedics who did not recommend any intervention. Pain was treated with Percocet when necessary. due to uncontrolled blood pressure new antihypertensive meds were added including norvasc and hydralazine and those were added to her meds upon discharge. Today she was cleared by cardio for discharge. She will be discharged to rehab in a stable condition. Discharge diagnoses Non-STEMI Sick sinus syndrome, status post pacemaker Atrial fibrillation, persistent Acute on chronic back pain Hypertension, essential time for discharge 35 minutes. Patient Condition at Discharge: Stable Plan - Discharge Summary New Discharge Prescriptions: New hydrALAZINE HCL [Apresoline] 25 mg PO TID 30 Days #90 tab Apixaban [Eliquis] 2.5 mg PO BID 6 Days #60 tablet Isosorbide Mononitrate ER [Imdur] 60 mg PO DAILY 30 Days #30 tab.er.24h amLODIPine [Norvasc] 5 mg PO DAILY 30 Days #30 tab oxyCODONE-APAP 5-325MG [Percocet 5-325 mg] 1 each PO Q4HR PRN tab PRN Reason: Pain Pravastatin Sodium [Pravachol] 40 mg PO DAILY 30 Days #30 tab Continue Latanoprost [Xalatan 0.005%] 1 drop BOTH EYES HS Levothyroxine Sodium 112 mcg PO DAILY Ergocalciferol (Vitamin D2) [Vitamin D2] 50,000 unit PO SA ALPRAZolam [Xanax] 0.5 mg PO HS Nitroglycerin Sl Tabs [Nitrostat] 0.4 mg SUBLINGUAL Q5M PRN PRN Reason: Chest Pain Ipratropium-Albuterol Nebulize [Duoneb 0.5 mg-3 mg/3 ml Soln] 3 ml INHALATION RT-Q2H PRN #1 box PRN Reason: Shortness Of Breath Or Wheezing Albuterol Sulfate [Ventolin HFA] 1 - 2 puff INHALATION RT-Q6H PRN PRN Reason: Shortness Of Breath Carvedilol [Coreg] 3.125 mg PO BID Furosemide [Lasix] 80 mg PO DAILY@1200 Discontinued Isosorbide Mononitrate ER [Imdur] 30 mg PO DAILY Warfarin [Coumadin] 2 mg PO HS Discharge Medication List ALPRAZolam [Xanax] 0.5 mg PO HS 12/03/17 [History] Ergocalciferol (Vitamin D2) [Vitamin D2] 50,000 unit PO SA 12/03/17 [History] Latanoprost [Xalatan 0.005%] 1 drop BOTH EYES HS 12/03/17 [History] Levothyroxine Sodium 112 mcg PO DAILY 12/03/17 [History] Nitroglycerin Sl Tabs [Nitrostat] 0.4 mg SUBLINGUAL Q5M PRN 06/09/18 [History] Ipratropium-Albuterol Nebulize [Duoneb 0.5 mg-3 mg/3 ml Soln] 3 ml INHALATION RT-Q2H PRN #1 box 08/06/18 [Rx] Albuterol Sulfate [Ventolin HFA] 1 - 2 puff INHALATION RT-Q6H PRN 09/16/19 [History] Carvedilol [Coreg] 3.125 mg PO BID 09/16/19 [History] Furosemide [Lasix] 80 mg PO DAILY@1200 09/16/19 [History] Apixaban [Eliquis] 2.5 mg PO BID 6 Days #60 tablet 09/23/19 [Rx] Isosorbide Mononitrate ER [Imdur] 60 mg PO DAILY 30 Days #30 tab.er.24h 09/23/19 [Rx] Pravastatin Sodium [Pravachol] 40 mg PO DAILY 30 Days #30 tab 09/23/19 [Rx] amLODIPine [Norvasc] 5 mg PO DAILY 30 Days #30 tab 09/23/19 [Rx] hydrALAZINE HCL [Apresoline] 25 mg PO TID 30 Days #90 tab 09/23/19 [Rx] oxyCODONE-APAP 5-325MG [Percocet 5-325 mg] 1 each PO Q4HR PRN tab 09/23/19 [Rx] Follow up Appointment(s)/Referral(s): Koko Gold MD [Primary Care Provider] - 1-2 days Activity/Diet/Wound Care/Special Instructions: pts copay for eliquis is $50/mo-first month is covered in [facility] pharmacy for free
== END 2019-09-23 17:40 | DRG 243 ==
LOC: EC 09:17 → 1SOBS 10:49 → 3SCARD 23:17 → OBSVTOIN 09-17 10:25
PROVIDERS: ADMIT Internal Medicine; ATTEND Internal Medicine
PROC: 0JH604Z Insertion of Pacemaker, Single Chamber into Chest Subcutaneous Tissue and Fascia, Open Approach (ICD-10-PCS; principal; 2019-09-20 07:30)
PROC: 02HK3JZ Insertion of Pacemaker Lead into Right Ventricle, Percutaneous Approach (ICD-10-PCS; principal; 2019-09-20 07:30)
DX: I21.4 Non-ST elevation (NSTEMI) myocardial infarction (principal); I48.21 Permanent atrial fibrillation; I13.0 Hypertensive heart and chronic kidney disease with heart failure and stage 1 through stage 4 chronic kidney disease, or unspecified chronic kidney disease; I50.32 Chronic diastolic (congestive) heart failure; I42.9 Cardiomyopathy, unspecified; E78.5 Hyperlipidemia, unspecified; E89.0 Postprocedural hypothyroidism; G89.29 Other chronic pain; H40.9 Unspecified glaucoma; I07.1 Rheumatic tricuspid insufficiency; I27.20 Pulmonary hypertension, unspecified; Z79.01 Long term (current) use of anticoagulants; I25.10 Atherosclerotic heart disease of native coronary artery without angina pectoris; I49.5 Sick sinus syndrome; J44.9 Chronic obstructive pulmonary disease, unspecified; K21.9 Gastro-esophageal reflux disease without esophagitis; N18.3 Chronic kidney disease, stage 3 (moderate); M54.9 Dorsalgia, unspecified; I25.9 Chronic ischemic heart disease, unspecified; Z88.5 Allergy status to narcotic agent; Z11.59 Encounter for screening for other viral diseases; Z88.8 Allergy status to other drugs, medicaments and biological substances; Z79.890 Hormone replacement therapy; Z79.899 Other long term (current) drug therapy; Z87.891 Personal history of nicotine dependence; Z90.710 Acquired absence of both cervix and uterus; Z95.5 Presence of coronary angioplasty implant and graft; Z96.651 Presence of right artificial knee joint; Z98.49 Cataract extraction status, unspecified eye; Z96.1 Presence of intraocular lens; Z91.81 History of falling
CPT/HCPCS: 33207; 36415; 71046; 72100; 73521; 80048; 80053; 83735; 83880; 84100; 84443; 84484; 85025; 85379; 85610; 85730; 93005; 93270; 93306; 94640; 94760; 96374; 99285

== ENCOUNTER 2019-10-16 09:12 | Day surgery (SDC) | payer MEDICARE, BC ==
[2019-10-16 09:32] VITALS: TEMP 98
[2019-10-16] MEDS ORDERED: ALPRAZolam 0.25 MG TAB PO ONE (09:36)
[2019-10-16 09:55] LABS: Mean Platelet Volume 7.2; Platelet Count 198 k/uL (150-450)
[2019-10-16 10:01] LABS: INR 1.2 (<1.2); Prothrombin Time 11.7 sec (9.0-12.0)
[2019-10-16 10:48] VITALS: RESP 24
--- NOTE | 2019-10-16 10:57 | P.PCN ---
Date of Procedure: 10/16/19 Preoperative Diagnosis: right pleural effusion Postoperative Diagnosis: same Procedure(s) Performed: ultrasound guided right thoracentesis Implants: none Anesthesia: local Surgeon: Dianne Amato Estimated Blood Loss (ml): 0 Pathology: other (sample of pleural fluid sent for laboratory testing) Condition: stable Disposition: same day Operative Findings: large volume right pleural effusion targeted, with removal of 1.0L of clear serous fluid
--- NOTE | 2019-10-16 11:09 | XR ---
EXAMINATION TYPE: XR chest 2V DATE OF EXAM: 10/16/2019 COMPARISON: Chest radiograph 10/09/2027. Ultrasound thoracentesis 10/16/2019 at 9:22 AM. HISTORY: Right pleural effusion TECHNIQUE: Frontal and lateral views of the chest are obtained. FINDINGS: There is decreased size of right pleural effusion status post thoracentesis, with small vo lume residual right pleural effusion. Small left pleural effusion. No pneumothorax. There is mild pul monary vascular congestion and mildly increased pulmonary edema. Cardiomediastinal silhouette unchang ed. Calcification of the visualized thoracic and abdominal aorta. Left-sided single-chamber pacemaker device. Increased thoracic kyphosis and degenerative changes of the spine. IMPRESSION: 1. No pneumothorax status post ultrasound guided right thoracentesis. Decreased right pleural effusi on with residual small effusion. Unchanged small left pleural effusion. 2. Pulmonary vascular congestion and mildly increased pulmonary edema. Findings may represent CHF.
--- NOTE | 2019-10-16 11:21 | US ---
EXAMINATION TYPE: US thoracentesis DATE OF EXAM: 10/16/2019 COMPARISON: Chest radiograph 10/09/2019 HISTORY: Pleural effusion. VIOLIN TUTOR: Dr. Dianne Amato PROCEDURE: The procedure was discussed with the patient. The risks, complications, benefits, and alternatives we re discussed and any questions were answered. Informed consent was obtained. Preprocedure preliminary imaging demonstrated moderate volume right pleural effusion. Maximal barrier technique was utilized. The skin overlying a suitable pocket of fluid of the right ch est was localized and the overlying skin prepped and draped. Lidocaine was used for local anesthesia. Ultrasound was used with sterile technique. A 5FR 7 cm ons-step centesis catheter was advanced into the pleural fluid collection using ultrasound guidance. Approximately 1.0 liter(s) of serous fluid wa s removed. Catheter was withdrawn and hemostasis achieved. A sterile bandage was applied. Postprocedure imaging demonstrated trace residual pleural effusion. There is no immediate complicatio n. The patient was discharged in stable condition without complication. IMPRESSION: 1. Status post ultrasound-guided right thoracentesis, with removal of 1.0 L of clear serous fluid. 2. Postprocedure chest x-ray pending.
[2019-10-16 11:42] VITALS: BP 174/75; PULSE 85
[2019-10-16 14:22] LABS: Appearance,BF Hazy; Color,BF Yellow
[2019-10-16 14:33] LABS: Nucleated Cells, Body Fluid 265 /uL; RBC, Body Fluid 835 /uL
[2019-10-16 14:35] LABS: Mononuclear WBC,Body Fluid 68 %; Polynuclear WBC,Body Fluid 21 %; Total Cells Counted,Body Fluid 100
[2019-10-16 19:27] LABS: Glucose, BF Source Pleural Fluid; Glucose, Body Fluid 106 mg/dL; Total Protein, Body Fluid 3000 mg/dL
[2019-10-16 19:28] LABS: LDH, Body Fluid Source Pleural Fluid
== END 2019-10-16 11:40 | disposition home or self-care (01) ==
LOC: RADPROMAIN 09:12
PROVIDERS: ATTEND Nurse Practitioner Adult Health
DX: J90 Pleural effusion, not elsewhere classified (principal); Z88.5 Allergy status to narcotic agent
CPT/HCPCS: 32555; 36415; 71046; 82945; 83615; 84157; 85049; 85610; 87070; 87075; 87116; 87205; 87206; 88108; 88305; 89050

== ENCOUNTER 2020-03-05 15:46 | Inpatient (IN) | payer MEDICARE, BC ==
--- NOTE | 2020-03-05 16:13 | ED ---
General Adult HPI - General Chief complaint: Shortness of Breath Stated complaint: CHF, DMITRI Time Seen by Provider: 03/05/20 15:55 Source: patient Mode of arrival: ambulatory Limitations: no limitations - History of Present Illness Initial comments: Dictation was produced using [employer] dictation software. please excuse any grammatical, word or spelling errors. This patient was cared for during a federal and state declared state of emergency secondary to Covid 19 Chief Complaint: 89-year-old feel past medical history A. fib ablation, coronary artery disease, heart failure, hypertension, pleural effusion presents with shortness of breath History of Present Illness: She is an 81-year-old female she has multiple cardiac and pulmonary comorbidities. She reports that she is maintained feeling short of breath intermittently since September. States that she came to the emergency department today she feels like her symptoms are getting better. She tried to make multiple phone calls to her academy director, reporting developer and primary care physician. Ultimately she decided come to the emergency room because she could not see any of her usual physicians. Patient has any fever, chills or night sweats. She denies any abdominal pain or nausea. No urinalysis and diaphoresis. She does complain of some vague mild chest pain to the subst ernal chest without any radiation of symptoms. She states that this pain is not worse with deep inspiration. She does complain of lower extremity swelling. She feels worse when she lies flat. She denies a constitutional symptoms. The ROS documented in this emergency department record has been reviewed and confirmed by me. Those systems with pertinent positive or negative responses have been documented in the HPI. All other systems are other negative and/or noncontributory. PHYSICAL EXAM: General Impression: Alert and oriented x3, not in acute distress HEENT: Normocephalic atraumatic, extra-ocular movements intact, pupils equal and reactive to light bilaterally, mucous membranes moist. Cardiovascular: Heart regular rate and rhythm Chest: Able to complete full sentences, no retractions, no tachypnea, right lung crackles Abdomen: abdomen soft, non-tender, non-distended, no organomegaly Musculoskeletal: Pulses present and equal in all extremities, no peripheral edema Motor: no focal deficits noted Neurological: CN II-XII grossly intact, no focal motor or sensory deficits noted Skin: Intact with no visualized rashes Psych: Normal affect and mood ED course: 89 y old female presents today with for dyspnea. She has multiple cardiac and pulmonary comorbidities. Vital signs upon arrival are within acceptable limits. Laboratory evaluation obtained. CBC unremarkable. Coag panel sodium. Metabolic panel shows potassium of 3.2. Cranium 1.43. Rapid rotavirus test is negative. Chest x-ray shows pleural effusion that appears to be slightly worse on the right side with slight worsening on the left. Disposition options were discussed with patient she would prefer to be admitted to the hospital for gentle diuresis. Clinical presentation consistent secondary to heart failure exacerbation. Patient also given potassium supplementation. Case discussed with on-call [facility] physician Dr. Chirinos who is willing to accept patients care. Cardiology on consultation EKG interpretation: Ventricular rate 68, A. fib, QRS 90, QTc 450. No IA prolongation, no QTC prolongation, T-wave inversion and lead aVL that appears to be compared to EKG from 09/16/2019. Overall, this EKG is nonspecific. - Related Data Home Medications Medication Instructions Recorded Confirmed ALPRAZolam [Xanax] 0.5 mg PO HS 12/03/17 10/16/19 Ergocalciferol (Vitamin D2) 50,000 unit PO SA 12/03/17 10/16/19 [Vitamin D2] Latanoprost [Xalatan 0.005%] 1 drop BOTH EYES HS 12/03/17 10/16/19 Levothyroxine Sodium 112 mcg PO DAILY 12/03/17 10/16/19 Nitroglycerin Sl Tabs [Nitrostat] 0.4 mg SUBLINGUAL Q5M PRN 06/09/18 10/16/19 Albuterol Sulfate [Ventolin HFA] 1 - 2 puff INHALATION RT-Q6H PRN 09/16/19 10/16/19 Furosemide [Lasix] 80 mg PO DAILY@1200 09/16/19 10/16/19 carvediloL [Coreg] 3.125 mg PO BID 09/16/19 10/16/19 Acetaminophen [Tylenol Extra 500 mg PO BID 10/11/19 10/16/19 Strength] Previous Rx's Medication Instructions Recorded Ipratropium-Albuterol Nebulize 3 ml INHALATION RT-Q2H PRN #1 box 08/06/18 [Duoneb 0.5 mg-3 mg/3 ml Soln] Apixaban [Eliquis] 2.5 mg PO BID 6 Days #60 tablet 09/23/19 Isosorbide Mononitrate ER [Imdur] 60 mg PO DAILY 30 Days #30 09/23/19 tab.er.24h Pravastatin Sodium [Pravachol] 40 mg PO DAILY 30 Days #30 tab 09/23/19 amLODIPine [Norvasc] 5 mg PO DAILY 30 Days #30 tab 09/23/19 hydrALAZINE HCL [Apresoline] 25 mg PO TID 30 Days #90 tab 09/23/19 Allergies Allergy/AdvReac Type Severity Reaction Status Date / Time brimonidine [From Simbrinza] Allergy Unknown Verified 03/05/20 15:54 brinzolamide [From Simbrinza] Allergy Unknown Verified 03/05/20 15:54 tramadol AdvReac Nausea & Verified 03/05/20 15:54 Vomiting Review of Systems ROS Statement: Those systems with pertinent positive or pertinent negative responses have been documented in the HPI. ROS Other: All systems not noted in ROS Statement are negative. Past Medical History Past Medical History: Atrial Fibrillation, Coronary Artery Disease (CAD), Heart Failure, GERD/Reflux, Hyperlipidemia, Hypertension, Respiratory Disorder, Thyroid Disorder Additional Past Medical History / Comment(s): Coronary artery disease, chronic atrial fibrillation, hypertension, hyperlipidemia, chronic stage II kidney dis ease with a baseline creatinine of around 1.5, hypothyroidism, glaucoma, History of Any Multi-Drug Resistant Organisms: None Reported Past Surgical History: Cholecystectomy, Heart Catheterization With Stent, Hysterectomy, Orthopedic Surgery, Tonsillectomy Additional Past Surgical History / Comment(s): right knee replacement, carpal tunnel release, "thyroidectomy", fco feet -heel spurs, cataracts-lens implants. pacemarker September 2019 Past Anesthesia/Blood Transfusion Reactions: No Reported Reaction Date of Last Stent Placement:: 2013 Past Psychological History: No Psychological Hx Reported Smoking Status: Former smoker Past Alcohol Use History: None Reported Past Drug Use History: None Reported - Past Family History Daughter(s) Additional Family Medical History / Comment(s): short term memory loss Father Additional Family Medical History / Comment(s): denies family history of cancer or DM in her mother General Exam Limitations: no limitations Course Vital Signs 03/05/20 03/05/20 03/05/20 15:48 16:18 16:30 Temperature 98.1 F Pulse Rate 73 Respiratory 18 Rate Blood Pressure 177/80 178/77 178/77 O2 Sat by Pulse 95 98 100 Oximetry 03/05/20 03/05/20 17:00 17:30 Temperature Pulse Rate 75 Respiratory 18 Rate Blood Pressure 180/66 175/84 O2 Sat by Pulse 98 Oximetry Medical Decision Making - Lab Data Result diagrams: 03/05/20 16:32 03/05/20 16:32 Lab Results 03/05/20 03/05/20 03/05/20 Range/Units 16:32 16:32 16:32 WBC 5.7 (3.8-10.6) k/uL RBC 3.72 L (3.80-5.40) m/uL Hgb 11.2 L (11.4-16.0) gm/dL Hct 32.7 L (34.0-46.0) % MCV 87.9 (80.0-100.0) fL MCH 30.2 (25.0-35.0) pg MCHC 34.3 (31.0-37.0) g/dL RDW 14.2 (11.5-15.5) % Plt Count 191 (150-450) k/uL MPV 7.0 Neutrophils % 75 % Lymphocytes % 15 % Monocytes % 5 % Eosinophils % 2 % Basophils % 1 % Neutrophils # 4.3 (1.3-7.7) k/uL Lymphocytes # 0.9 L (1.0-4.8) k/uL Monocytes # 0.3 (0-1.0) k/uL Eosinophils # 0.1 (0-0.7) k/uL Basophils # 0.0 (0-0.2) k/uL PT 12.8 H (9.0-12.0) sec INR 1.3 H (<1.2) APTT 26.4 (22.0-30.0) sec Sodium 138 (137-145) mmol/L Potassium 3.2 L (3.5-5.1) mmol/L Chloride 99 (98-107) mmol/L Carbon Dioxide 34 H (22-30) mmol/L Anion Gap 5 mmol/L BUN 28 H (7-17) mg/dL Creatinine 1.43 H (0.52-1.04) mg/dL Est GFR (CKD-EPI)AfAm 38 (>60 ml/min/1.73 sqM) Est GFR (CKD-EPI)NonAf 33 (>60 ml/min/1.73 sqM) Glucose 111 H (74-99) mg/dL Calcium 8.8 (8.4-10.2) mg/dL Magnesium 1.9 (1.6-2.3) mg/dL NT-Pro-B Natriuret Pep pg/mL Coronavirus (PCR) (Not Detectd) 03/05/20 03/05/20 Range/Units 16:32 16:38 WBC (3.8-10.6) k/uL RBC (3.80-5.40) m/uL Hgb (11.4-16.0) gm/dL Hct (34.0-46.0) % MCV (80.0-100.0) fL MCH (25.0-35.0) pg MCHC (31.0-37.0) g/dL RDW (11.5-15.5) % Plt Count (150-450) k/uL MPV Neutrophils % % Lymphocytes % % Monocytes % % Eosinophils % % Basophils % % Neutrophils # (1.3-7.7) k/uL Lymphocytes # (1.0-4.8) k/uL Monocytes # (0-1.0) k/uL Eosinophils # (0-0.7) k/uL Basophils # (0-0.2) k/uL PT (9.0-12.0) sec INR (<1.2) APTT (22.0-30.0) sec Sodium (137-145) mmol/L Potassium (3.5-5.1) mmol/L Chloride (98-107) mmol/L Carbon Dioxide (22-30) mmol/L Anion Gap mmol/L BUN (7-17) mg/dL Creatinine (0.52-1.04) mg/dL Est GFR (CKD-EPI)AfAm (>60 ml/min/1.73 sqM) Est GFR (CKD-EPI)NonAf (>60 ml/min/1.73 sqM) Glucose (74-99) mg/dL Calcium (8.4-10.2) mg/dL Magnesium (1.6-2.3) mg/dL NT-Pro-B Natriuret Pep 4120 pg/mL Coronavirus (PCR) Not Detected (Not Detectd) Disposition Clinical Impression: CHF exacerbation Disposition: ADMITTED IP TO THIS HOSP Condition: Fair Referrals: Chris Heath MD [Primary Care Provider] - 1-2 days Decision Time: 17:52
[2020-03-05 16:50] LABS: Basophils % (A) 1 %; Eosinophils # (A) 0.1 k/uL (0-0.7); Eosinophils % (A) 2 %; HCT 32.7 % (34.0-46.0); HGB 11.2 gm/dL (11.4-16.0); Lymphocytes # (A) 0.9 k/uL (1.0-4.8); Lymphocytes % (A) 15 %; MCH 30.2 pg (25.0-35.0); MCHC 34.3 g/dL (31.0-37.0); MCV 87.9 fL (80.0-100.0); Monocytes # (A) 0.3 k/uL (0-1.0); Monocytes % (A) 5 %; Neutrophils # (A) 4.3 k/uL (1.3-7.7); Neutrophils % (A) 75 %; Platelet Count 191 k/uL (150-450); RBC 3.72 m/uL (3.80-5.40); RDW 14.2 % (11.5-15.5); WBC 5.7 k/uL (3.8-10.6)
--- NOTE | 2020-03-05 16:50 | XR ---
EXAMINATION TYPE: XR chest 1V portable DATE OF EXAM: 03/05/2020 COMPARISON: Chest x-ray October 16, 2019. HISTORY: Difficulty in breathing. TECHNIQUE: Single AP portable frontal view of the chest is obtained. FINDINGS: Persistent cardiomegaly with single lead pacemaker. Background chronic emphysematous roberts e with stable tiny left pleural effusion. Worsening right basilar opacity. The osseous structures a re redemonstrated are demineralized. IMPRESSION: Chronic changes and cardiomegaly with tiny left pleural effusion thought stable. Worseni ng [id number] right pleural effusion and associated right basilar atelectasis and/or infiltrat e
[2020-03-05 16:58] LABS: INR 1.3 (<1.2); Partial Thromboplastin Time 26.4 sec (22.0-30.0); Prothrombin Time 12.8 sec (9.0-12.0)
[2020-03-05 17:31] LABS: Calcium 8.8 mg/dL (8.4-10.2); Magnesium 1.9 mg/dL (1.6-2.3); Potassium 3.2 mmol/L (3.5-5.1)
[2020-03-05] MEDS ORDERED: FUROSEMIDE 10 MG/ML 10 ML VIAL IV STA (17:42)
[2020-03-05] MEDS ORDERED: POTASSIUM CHLORIDE ER 20 MEQ TAB.ER PO STA (17:51)
[2020-03-05] MEDS ORDERED: LORazepam 1 MG TAB PO ONE (18:20)
--- NOTE | 2020-03-05 21:16 | P.HPIM ---
History of Present Illness H&P Date: 03/05/20 The patient is an 89-year-old female with a PMH of coronary artery disease status post stenting, persistent A. fib on Eliquis, diastolic CHF, chronic kidney disease stage IIIB, hypertension, hyperlipidemia, and hypothyroidism who presented to the emergency room complaints of shortness of breath. The patient notes that she has had some degree of shortness of breath for the past 6 months though it had recently worsened. She reports some orthopnea, PND, along with lower extremity edema. Reports that her excess tolerance is significantly diminished and that she is only able to walk a few steps before she gets short of breath. Denied experiencing fever, chills, or chest pain. Also denied lower extremity pain. Denied nausea, vomiting, diaphoresis. Patient underwent an extensive evaluation in the emergency room which was all reviewed with chest x- ray showing chronic changes and cardiomegaly with a tiny left-sided pleural effusion with worsening small to moderate right-sided pleural effusion and associated right basilar atelectasis. EKG had revealed A. fib with PVCs with left axis deviation at 68 bpm. Laboratory evaluation was notable for a potassium of 3.2, CO2 of 34, BUN 28, creatinine 1.43, proBNP 4120. Review of Systems Pertinent positives and negatives as discussed in HPI, a complete review of systems was performed and all other systems are negative. Past Medical History Past Medical History: Atrial Fibrillation, Coronary Artery Disease (CAD), Heart Failure, GERD/Reflux, Hyperlipidemia, Hypertension, Respiratory Disorder, Thyroid Disorder Additional Past Medical History / Comment(s): Coronary artery disease, chronic atrial fibrillation, hypertension, hyperlipidemia, chronic stage II kidney disease with a baseline creatinine of around 1.5, hypothyroidism, glaucoma, History of Any Multi-Drug Resistant Organisms: None Reported Past Surgical History: Cholecystectomy, Heart Catheterization With Stent, Hysterectomy, Orthopedic Surgery, Tonsillectomy Additional Past Surgical History / Comment(s): right knee replacement, carpal tunnel release, "thyroidectomy", fco feet -heel spurs, cataracts-lens implants. pacemarker September 2019 Past Anesthesia/Blood Transfusion Reactions: No Reported Reaction Date of Last Stent Placement:: 2013 Past Psychological History: No Psychological Hx Reported Smoking Status: Former smoker Past Alcohol Use History: None Reported Past Drug Use History: None Reported - Past Family History Daughter(s) Additional Family Medical History / Comment(s): short term memory loss Father Additional Family Medical History / Comment(s): denies family history of cancer or DM in her mother Medications and Allergies Home Medications Medication Instructions Recorded Confirmed Type ALPRAZolam [Xanax] 0.5 mg PO HS@209912/03/17 03/05/20 History Ergocalciferol (Vitamin D2) 50,000 unit PO SA 12/03/17 03/05/20 History [Vitamin D2] Levothyroxine Sodium 112 mcg PO DAILY@59912/03/17 03/05/20 History Nitroglycerin Sl Tabs [Nitrostat] 0.4 mg SUBLINGUAL Q5M PRN 06/09/18 03/05/20 History Albuterol Sulfate [Ventolin HFA] 1 - 2 puff INHALATION RT-Q6H PRN 09/16/19 03/05/20 History carvediloL [Coreg] 3.125 mg PO BID@899,209909/16/19 03/05/20 History Acetaminophen [Tylenol Extra 500 - 1,000 mg PO Q6H PRN 10/11/19 03/05/20 History Strength] Apixaban [Eliquis] 2.5 mg PO BID@899,209903/05/20 03/05/20 History Furosemide [Lasix] 40 mg PO HS@209903/05/20 03/05/20 History Furosemide [Lasix] 80 mg PO DAILY@89903/05/20 03/05/20 History Ipratropium Nebulized [Atrovent 0.5 mg INHALATION RT-QID 03/05/20 03/05/20 History Nebulized 0.2 MG/ML] Ipratropium-Albuterol Nebulize 3 ml INHALATION RT-Q4H PRN 03/05/20 03/05/20 History [Duoneb 0.5 mg-3 mg/3 ml Soln] Isosorbide Mononitrate ER [Imdur] 60 mg PO DAILY@89903/05/20 03/05/20 History Latanoprost/Pf [Latanoprost 0.005% 1 drop BOTH EYES HS@209903/05/20 03/05/20 History Eye Drop] Pantoprazole [Protonix] 40 mg PO DAILY@89903/05/20 03/05/20 History Pravastatin Sodium [Pravachol] 40 mg PO DAILY@0900 03/05/20 03/05/20 History amLODIPine [Norvasc] 5 mg PO DAILY@0900 03/05/20 03/05/20 History hydrALAZINE HCL [Apresoline] 25 mg PO TID@0900,1300,2100 03/05/20 03/05/20 History Allergies Allergy/AdvReac Type Severity Reaction Status Date / Time brimonidine [From Simbrinza] Allergy Unknown Verified 03/05/20 19:14 brinzolamide [From Simbrinza] Allergy Unknown Verified 03/05/20 19:14 tramadol AdvReac Nausea & Verified 03/05/20 19:14 Vomiting Physical Exam Vitals: Vital Signs Temp Pulse Resp BP Pulse Ox 03/05/20 19:18 64 18 160/76 99 03/05/20 17:30 75 18 175/84 98 03/05/20 17:00 180/66 03/05/20 16:30 178/77 100 03/05/20 16:18 178/77 98 03/05/20 15:48 98.1 F 73 18 177/80 95 Intake and Output 03/05/20 03/05/20 03/05/20 06:59 14:59 22:59 Other: Weight 68.039 kg General: non toxic, no distress, appears at stated age, normal weight Derm: no unusual rashes/lesions no unusual ecchymoses, warm, dry Head: atraumatic, normocephalic, symmetric Eyes: EOMI, no lid lag, anicteric sclera, pupils equal round reactive to light ENT: Nose and ears atraumatic, no thrush, no pharyngeal erythema Neck: No thyromegaly, no cervical lymphadenopathy, trachea midline, supple Mouth: no lip lesion, mucus membranes moist Cardiovascular: S1S2 reg, no murmur, positive posterior tibial pulse bilateral, 2+ bilateral lower extremity pitting edema to knees, capillary refill less than 2 seconds Lungs: Bibasilar rales, no rhonchi or wheezing appreciated, no accessory muscle use Abdominal: soft, nontender to palpation, no guarding, no appreciable organomegaly, normal bowel sounds Ext: no gross muscle atrophy, muscle strength 4 out of 5 in all 4 extremities grossly, no contractures, Neuro: CN II-XI grossly intact, light touch intact all 4 extremities, finger to nose within normal limits, Psych: Alert, oriented, appropriate affect Results CBC & Chem 7: 03/05/20 16:32 12 16:32 Labs: Abnormal Lab Results - Last 24 Hours (Table) 03/05/20 12 12 Range/Units 16:32 16:32 16:32 RBC 3.72 L (3.80-5.40) m/uL Hgb 11.2 L (11.4-16.0) gm/dL Hct 32.7 L (34.0-46.0) % Lymphocytes # 0.9 L (1.0-4.8) k/uL PT 12.8 H (9.0-12.0) sec INR 1.3 H (<1.2) Potassium 3.2 L (3.5-5.1) mmol/L Carbon Dioxide 34 H (22-30) mmol/L BUN 28 H (7-17) mg/dL Creatinine 1.43 H (0.52-1.04) mg/dL Glucose 111 H (74-99) mg/dL Assessment and Plan Plan: Shortness of breath, likely secondary to acute CHF exacerbation versus recurrent significant pleural effusion -Continue with Lasix for now -Cardiology consult -Cardiac monitoring -Monitor electrolytes daily and replace as needed -Intake and output -Fluid restriction Recurrent right-sided pleural effusion -IR consult for thoracentesis to further classify the type of effusion Hypokalemia -Replace and monitor Chronic kidney disease stage IIIB -At baseline Chronic conditions: Hypertension, hyperlipidemia, persistent A. fib, coronary artery disease, hypothyroidism -Continue with home meds DVT prophylaxis -Eliquis The patient is admitted with an anticipated greater than 2 midnight stay for evaluation of SOB CODE STATUS: Full Code Discussed with: Patient Anticipated discharge date: 2-[address]: Home A total of 40 minutes was spent on the care of this complex patient more than 50% of the time was spent in counseling and care coordination.
[2020-03-05] MEDS ORDERED: IPRATROPIUM-ALBUTEROL 3 ML NEB INHALATION PRN (23:02)
[2020-03-06] MEDS ORDERED: HEPARIN SODIUM,PORCINE 5,000 UNIT/ML 1 ML VIAL SQ SCH
[2020-03-06] MEDS: FUROSEMIDE 10 MG/ML 4 ML VIAL IV SCH ×2 (00:47→08:27)
[2020-03-06] MEDS: ALPRAZolam 0.5 MG TAB PO SCH ×2 (02:12→22:08)
[2020-03-06] MEDS: LEVOTHYROXINE 112 MCG TAB PO SCH (06:24)
[2020-03-06] MEDS: IPRATROPIUM-ALBUTEROL 3 ML NEB INHALATION SCH ×4 (07:43→19:07)
[2020-03-06] MEDS: amLODIPine 10 MG TAB PO SCH (08:28)
[2020-03-06] MEDS: PANTOPRAZOLE 40 MG TABLET PO SCH (08:28)
[2020-03-06] MEDS: PRAVASTATIN SODIUM 40 MG TAB PO SCH (08:30)
[2020-03-06] MEDS: hydrALAZINE HCL 25 MG TAB PO SCH ×3 (08:30→22:08)
[2020-03-06] MEDS: ISOSORBIDE MONONITRATE ER 60 MG TAB.ER.24H PO SCH (08:30)
[2020-03-06] MEDS: carvediloL 3.125 MG TAB PO SCH ×2 (08:30→22:09)
[2020-03-06] MEDS: APIXABAN 2.5 MG TABLET PO SCH ×2 (08:30→22:09)
[2020-03-06] MEDS ORDERED: POTASSIUM CHLORIDE ER 20 MEQ TAB.ER PO STA (09:53)
[2020-03-06 10:32] LABS: Calcium 8.7 mg/dL (8.4-10.2); Potassium 3.6 mmol/L (3.5-5.1)
[2020-03-06] MEDS: SPIRONOLACTONE 25 MG TAB PO SCH (12:00)
--- NOTE | 2020-03-06 12:53 | US ---
EXAMINATION TYPE: US chest DATE OF EXAM: 03/06/2020 COMPARISON: NONE CLINICAL HISTORY: assess for fluid pocket please.. TECHNIQUE: Targeted ultrasound of the posterior lower bilateral hemithoraces EXAM MEASUREMENTS: Right Pleural Effusion pocket size: 9.0 cm Right skin surface to fluid distance: 3.4 cm Left Pleural Effusion pocket size: 2.9 cm Right side marked for possible thoracentesis outside the dept. Left side NOT marked for possible thoracentesis outside the dept due to small fluid pocket. Pulmonologists are able to review the images in the patient?s EMR. IMPRESSIONS: Right greater than left pleural effusions
--- NOTE | 2020-03-06 13:42 | P.CRDCN ---
History of Present Illness History of present illness: HISTORY OF PRESENTING ILLNESS This is a pleasant 89-year-old female past medical history significant for chronic persistent atrial fibrillation on long-term anticoagulation, epstein ry artery disease status post PCI of the RCA, permanent pacemaker implantation, hypertension and dyslipidemia. She follows in the office with Dr. Rao. We have been asked to see in consultation for shortness of breath. She presented to the hospital with symptoms of increased shortness of breath and lower extremity edema over the previous few days. She was started on IV diuretics and her symptoms have improved since admission. EKG on arrival reveals atrial fibrillation with heart rate is 68. Chest x-ray reveals tiny left pleural effusion stable from previous study with a small to moderate right- sided effusion and right-sided basilar atelectasis. Chest ultrasound ordered revealing a right pleural effusion pocket size of 9 cm in the left pleural effusion pocket size of 2.9 cm. Laboratory data reviewed, WBC 5.7, hemoglobin 11.2, platelets 191, sodium 132, potassium 3.6, creatinine 1.55, magnesium 2.0 and NT proBNP 4120. Current daily cardiac medications include Eliquis 2.5 mg twice a day, pravastatin 40 mg daily, carvedilol 3.125 mg twice a day, hydralazine 25 mg 3 times a day, Lasix 80 mg in the morning and 40 mg in the afternoon, Imdur 60 mg daily and amlodipine 5 mg daily. Most recent echocardiogram obtained August 2019 revealed preserved LV systolic function with ejection fraction 55-60%, mild aortic stenosis with a mean gradient of 10 mmHg, mild to moderate tricuspid regurgitation, mild to moderate pulmonary hypertension with an RVSP of 45 mmHg and mild mitral regurgitation. REVIEW OF SYSTEMS At the time of my exam: CONSTITUTIONAL: Denies fever or chills. CARDIOVASCULAR: Denies chest pain, shortness of breath, orthopnea, PND or palpitations. RESPIRATORY: Denies cough. GASTROINTESTINAL: Denies abdominal pain, diarrhea, constipation, nausea or vomiting. MUSCULOSKELETAL: Denies myalgias. NEUROLOGIC: Denies numbness, tingling or weakness. ENDOCRINE: Denies fatigue, weight change, polydipsia or polyurina. GENITOURINARY: Denies burning, hematuria or urgency with micturation. HEMATOLOGIC: Denies history of anemia or bleeding. PHYSICAL EXAMINATION Blood pressure 143/52 heart rate 68 afebrile and maintaining oxygen saturation on nasal cannula. CONSTITUTIONAL: No apparent distress. HEENT: Head is normocephalic. Pupils are equal, round. Sclerae anicteric. Mucous membranes of the mouth are moist. No JVD. No carotid bruit. CHEST EXAMINATION: Lungs are clear to auscultation. No chest wall tenderness is noted on palpation or with deep breathing. HEART EXAMINATION: Irregular rate and rhythm. S1, S2 heard. Systolic ejection murmur at the apex, no gallops or rub. ABDOMEN: Soft, nontender. Positive bowel sounds. EXTREMITIES: 2+ peripheral pulses, trace lower extremity edema and no calf tenderness. NEUROLOGIC EXAMINATION: Patient is awake, alert and oriented x3. ASSESSMENT Acute on chronic diastolic heart failure, improved Hypokalemia Chronic persistent atrial fibrillation on long-term anticoagulation Pleural effusion Hypertension Dyslipidemia Coronary artery disease s/p PCI RCA 2010 Sick sinus syndrome s/p permanent pacemaker implantation PLAN Transition to oral diuretics. Add aldactone 25 mg daily. Symptoms have improved since admission. She can be discharged and follow up in the office with Dr. Rao. Thank you kindly for this consultation. Nurse Practitioner note has been reviewed, I agree with a documented findings and plan of care. Patient was seen and examined. Past Medical History Past Medical History: Atrial Fibrillation, Coronary Artery Disease (CAD), Heart Failure, GERD/Reflux, Hyperlipidemia, Hypertension, Respiratory Disorder, Thyroid Disorder Additional Past Medical History / Comment(s): Coronary artery disease, chronic atrial fibrillation, hypertension, hyperlipidemia, chronic stage II kidney disease with a baseline creatinine of around 1.5, hypothyroidism, glaucoma, History of Any Multi-Drug Resistant Organisms: None Reported Past Surgical History: Cholecystectomy, Heart Catheterization With Stent, Hysterectomy, Orthopedic Surgery, Tonsillectomy Additional Past Surgical History / Comment(s): right knee replacement, carpal tunnel release, "thyroidectomy", fco feet -heel spurs, cataracts-lens implants. pacemarker September 2019 Past Anesthesia/Blood Transfusion Reactions: No Reported Reaction Date of Last Stent Placement:: 2013 Past Psychological History: No Psychological Hx Reported Smoking Status: Former smoker Past Alcohol Use History: None Reported Past Drug Use History: None Reported - Past Family History Daughter(s) Additional Family Medical History / Comment(s): short term memory loss Father Additional Family Medical History / Comment(s): denies family history of cancer or DM in her mother Medications and Allergies Home Medications Medication Instructions Recorded Confirmed Type ALPRAZolam [Xanax] 0.5 mg PO HS@209912/03/17 03/05/20 History Ergocalciferol (Vitamin D2) 50,000 unit PO SA 12/03/17 03/05/20 History [Vitamin D2] Levothyroxine Sodium 112 mcg PO DAILY@59912/03/17 03/05/20 History Nitroglycerin Sl Tabs [Nitrostat] 0.4 mg SUBLINGUAL Q5M PRN 06/09/18 03/05/20 History Albuterol Sulfate [Ventolin HFA] 1 - 2 puff INHALATION RT-Q6H PRN 09/16/19 03/05/20 History carvediloL [Coreg] 3.125 mg PO BID@899,209909/16/19 03/05/20 History Acetaminophen [Tylenol Extra 500 - 1,000 mg PO Q6H PRN 10/11/19 03/05/20 History Strength] Apixaban [Eliquis] 2.5 mg PO BID@899,209903/05/20 03/05/20 History Furosemide [Lasix] 40 mg PO HS@209903/05/20 03/05/20 History Furosemide [Lasix] 80 mg PO DAILY@89903/05/20 03/05/20 History Ipratropium Nebulized [Atrovent 0.5 mg INHALATION RT-QID 03/05/20 03/05/20 History Nebulized 0.2 MG/ML] Ipratropium-Albuterol Nebulize 3 ml INHALATION RT-Q4H PRN 03/05/20 03/05/20 History [Duoneb 0.5 mg-3 mg/3 ml Soln] Isosorbide Mononitrate ER [Imdur] 60 mg PO DAILY@89903/05/20 03/05/20 History Latanoprost/Pf [Latanoprost 0.005% 1 drop BOTH EYES HS@209903/05/20 03/05/20 History Eye Drop] Pantoprazole [Protonix] 40 mg PO DAILY@89903/05/20 03/05/20 History Pravastatin Sodium [Pravachol] 40 mg PO DAILY@89903/05/20 03/05/20 History amLODIPine [Norvasc] 5 mg PO DAILY@0900 03/05/20 03/05/20 History hydrALAZINE HCL [Apresoline] 25 mg PO TID@0900,1300,2100 03/05/20 03/05/20 History Allergies Allergy/AdvReac Type Severity Reaction Status Date / Time brimonidine [From Simbrinza] Allergy Unknown Verified 03/05/20 19:14 brinzolamide [From Simbrinza] Allergy Unknown Verified 03/05/20 19:14 tramadol AdvReac Nausea & Verified 03/05/20 19:14 Vomiting Physical Exam Vitals: Vital Signs Temp Pulse Resp BP Pulse Ox 03/06/20 07:53 70 18 03/06/20 07:48 96 03/06/20 07:43 70 18 03/06/20 05:57 65 18 120/63 95 03/06/20 00:00 66 16 163/62 97 03/05/20 23:50 65 03/05/20 19:18 64 18 160/76 99 03/05/20 17:30 75 18 175/84 98 03/05/20 17:00 180/66 03/05/20 16:30 178/77 100 03/05/20 16:18 178/77 98 03/05/20 15:48 98.1 F 73 18 177/80 95 Intake and Output 03/05/20 03/06/20 03/06/20 22:59 06:59 14:59 Other: Weight 68.039 kg Results 03/05/20 16:32 03/06/20 09:44 Coagulation 03/05/20 Range/Units 16:32 PT 12.8 H (9.0-12.0) sec APTT 26.4 (22.0-30.0) sec CBC 03/05/20 Range/Units 16:32 WBC 5.7 (3.8-10.6) k/uL RBC 3.72 L (3.80-5.40) m/uL Hgb 11.2 L (11.4-16.0) gm/dL Hct 32.7 L (34.0-46.0) % Plt Count 191 (150-450) k/uL Comprehensive Metabolic Panel 03/05/20 Range/Units 16:32 Sodium 138 (137-145) mmol/L Potassium 3.2 L (3.5-5.1) mmol/L Chloride 99 (98-107) mmol/L Carbon Dioxide 34 H (22-30) mmol/L BUN 28 H (7-17) mg/dL Creatinine 1.43 H (0.52-1.04) mg/dL Glucose 111 H (74-99) mg/dL Calcium 8.8 (8.4-10.2) mg/dL Current Medications Generic Name Dose Route Start Last Admin Trade Name Freq PRN Reason Stop Dose Admin Albuterol/Ipratropium 3 ml 03/05/20 23:02 03/05/20 23:50 Ipratropium-Albuterol 3 Ml Neb INHALATION 3 ml RT-QID PRN Administration Shortness Of Breath Or Wheezing Albuterol/Ipratropium 3 ml 03/06/20 08:00 03/06/20 07:43 Ipratropium-Albuterol 3 Ml Neb INHALATION 3 ml RT-QID LEONARDO Administration Alprazolam 0.5 mg 03/06/20 00:00 03/06/20 02:12 Alprazolam 0.5 Mg Tab PO 0.5 mg HS@2100 [facility] Administration Amlodipine Besylate 5 mg 03/06/20 09:00 Amlodipine 10 Mg Tab PO DAILY@0900 [facility] Apixaban 2.5 mg 03/06/20 09:00 Apixaban 2.5 Mg Tablet PO BID@0900,2100 [facility] Carvedilol 3.125 mg 03/06/20 09:00 Carvedilol 3.125 Mg Tab PO BID@0900,2100 [facility] Furosemide 40 mg 03/06/20 00:00 03/06/20 00:47 Furosemide 10 Mg/Ml 4 Ml Vial IV 40 mg Q8HR [facility] Administration Hydralazine HCl 25 mg 03/06/20 09:00 Hydralazine Hcl 25 Mg Tab PO TID@0900,1300,2100 [facility] Isosorbide Mononitrate 60 mg 03/06/20 09:00 Isosorbide Mononitrate Er 60 Mg Tab.Er.24h PO DAILY@0900 [facility] Levothyroxine Sodium 112 mcg 03/06/20 06:00 03/06/20 06:24 Levothyroxine 112 Mcg Tab PO 112 mcg DAILY@0600 [facility] Administration Pantoprazole Sodium 40 mg 03/06/20 09:00 Pantoprazole 40 Mg Tablet PO DAILY@0900 LEONARD[facility] Pravastatin Sodium 40 mg 03/06/20 09:00 Pravastatin Sodium 40 Mg Tab PO DAILY@0900 [facility] Intake and Output 03/05/20 03/06/20 03/06/20 22:59 06:59 14:59 Other: Weight 68.039 kg 03/05/20 16:32 03/05/20 16:32
--- NOTE | 2020-03-06 14:55 | P.PN ---
Subjective Progress Note Date: 03/06/20 No new complaints today. Pending IR thoracentesis today. Objective - Vital Signs Vital signs: Vital Signs Temp 98.1 F 03/05/20 15:48 Pulse 64 03/06/20 13:50 Resp 17 03/06/20 13:50 BP 108/51 03/06/20 13:50 Pulse Ox 100 03/06/20 13:50 Intake & Output 03/05/20 03/06/20 03/06/20 18:59 06:59 18:59 Weight 68.039 kg - Exam Gen: awake, alert HEENT: normocephalic, atraumatic, good hearing acuity, moist mucous membranes Resp: good air exchange, breathing comfortably with no accessory muscle use CVS: good distal perfusion x 4, GI: soft, NTTP, ND : no SPT, no CVAT, lopez catheter not present MSK: no pitting edema, no clubbing Neuro: non-focal, moving all extremities Psych: cooperative, euthymic mood - Labs CBC & Chem 7: 03/05/20 16:32 03/06/20 09:44 Labs: Abnormal Lab Results - Last 24 Hours (Table) 03/05/20 03/05/20 03/05/20 Range/Units 16:32 16:32 16:32 RBC 3.72 L (3.80-5.40) m/uL Hgb 11.2 L (11.4-16.0) gm/dL Hct 32.7 L (34.0-46.0) % Lymphocytes # 0.9 L (1.0-4.8) k/uL PT 12.8 H (9.0-12.0) sec INR 1.3 H (<1.2) Potassium 3.2 L (3.5-5.1) mmol/L Carbon Dioxide 34 H (22-30) mmol/L BUN 28 H (7-17) mg/dL Creatinine 1.43 H (0.52-1.04) mg/dL Glucose 111 H (74-99) mg/dL 03/06/20 Range/Units 09:44 RBC (3.80-5.40) m/uL Hgb (11.4-16.0) gm/dL Hct (34.0-46.0) % Lymphocytes # (1.0-4.8) k/uL PT (9.0-12.0) sec INR (<1.2) Potassium (3.5-5.1) mmol/L Carbon Dioxide 39 H (22-30) mmol/L BUN 26 H (7-17) mg/dL Creatinine 1.55 H (0.52-1.04) mg/dL Glucose 103 H (74-99) mg/dL Assessment and Plan Assessment: 1. Acute Hypoxemic Respiratory Failure 2. Acute on Chronic Diastolic Heart Failure Exacerbation 3. Permanent Atrial Fibrillation, rate controlled, on Eliquis 4. CAD 5. HTN 6. HLD 7. Hypothyroidism 89 year old woman with history of CAD/HTN/HLD, perm AFib, HFpEF presented with dyspnea and found to be in acute hypoxemic respiratory failure with evidence of moderate pleural effusion, worsening, on right side. Shortness of breath, likely secondary to acute CHF exacerbation versus recurrent significant pleural effusion -Continue with Lasix for now -Cardiology consult, appreciate recs -Cardiac monitoring -Monitor electrolytes daily and replace as needed -Intake and output -Fluid restriction Recurrent right-sided pleural effusion -IR consult for thoracentesis to further classify the type of effusion Hypokalemia -Replace and monitor Chronic kidney disease stage IIIB -At baseline Chronic conditions: Hypertension, hyperlipidemia, persistent A. fib, coronary artery disease, hypothyroidism -Continue with home meds DVT prophylaxis -Eliquis The patient is admitted with an anticipated greater than 2 midnight stay for evaluation of SOB CODE STATUS: Full Code Discussed with: Patient Anticipated discharge date: 2-[address]: Home
--- NOTE | 2020-03-06 15:37 | XR ---
EXAMINATION TYPE: XR chest 1V portable DATE OF EXAM: 03/06/2020 COMPARISON: Prior chest x-ray 03/05/2020 HISTORY: Status post right thoracentesis TECHNIQUE: Single frontal view of the chest is obtained. FINDINGS: Small right-sided pneumothorax is present, basilar pneumothorax suggest trapped lung. No o ther significant change. IMPRESSION: Small right pneumothorax, possible trapped lung. Follow-up recommended.
[2020-03-06 15:46] LABS: Albumin 3.5 g/dL (3.5-5.0); Bilirubin,Unconjugated 0.5 mg/dL (0.0-1.1); Globulin 3.4 g/dL; Total Bilirubin 0.7 mg/dL (0.2-1.3); Total Protein 6.9 g/dL (6.3-8.2)
--- NOTE | 2020-03-06 15:53 | US ---
EXAMINATION TYPE: US thoracentesis DATE OF EXAM: 03/06/2020 COMPARISON: NONE HISTORY: Pleural effusion. FINDINGS: Maximal barrier technique was utilized. The skin overlying a suitable pocket of fluid was localized and the overlying skin prepped and draped. Lidocaine was used for local anesthesia. Ultras ound was used with sterile technique. A 5 [place] catheter over guide needle was advanced into the pl eural fluid collection using ultrasound guidance and the catheter advanced, needle removed. Approxim ately 0.9 liter(s) of serous fluid was removed. Catheter was withdrawn and hemostasis achieved. The re is no immediate complication. The patient discharged in stable condition without complication. IMPRESSION: STATUS POST ULTRASOUND GUIDED THORACENTESIS, POST PROCEDURE CHEST X-RAY PENDING. THIS OK OCEDURE WAS PERFORMED BY THE UNDERSIGNED.
[2020-03-06 20:58] LABS: Appearance,BF Hazy; Color,BF Yellow
[2020-03-06 20:59] LABS: Nucleated Cells, Body Fluid 515 /uL; RBC, Body Fluid 3130 /uL
[2020-03-06 21:47] LABS: Mononuclear WBC,Body Fluid 86 %; Polynuclear WBC,Body Fluid 13 %
[2020-03-06] MEDS: FUROSEMIDE 40 MG TAB PO SCH (22:09)
[2020-03-07 05:17] LABS: Total Protein, Body Fluid 2810 mg/dL
[2020-03-07] MEDS: LEVOTHYROXINE 112 MCG TAB PO SCH (05:30)
[2020-03-07 06:12] LABS: LDH, Body Fluid Source Pleural Fluid
[2020-03-07] MEDS: IPRATROPIUM-ALBUTEROL 3 ML NEB INHALATION SCH ×4 (08:38→20:47)
[2020-03-07] MEDS: amLODIPine 10 MG TAB PO SCH (09:12)
[2020-03-07] MEDS: APIXABAN 2.5 MG TABLET PO SCH ×2 (09:13→20:53)
[2020-03-07] MEDS: FUROSEMIDE 40 MG TAB PO SCH ×2 (09:13→20:53)
[2020-03-07] MEDS: ISOSORBIDE MONONITRATE ER 60 MG TAB.ER.24H PO SCH (09:14)
[2020-03-07] MEDS: SPIRONOLACTONE 25 MG TAB PO SCH (09:14)
[2020-03-07] MEDS: PRAVASTATIN SODIUM 40 MG TAB PO SCH (09:14)
[2020-03-07] MEDS: hydrALAZINE HCL 25 MG TAB PO SCH ×3 (09:14→20:54)
[2020-03-07] MEDS: carvediloL 3.125 MG TAB PO SCH ×2 (09:14→20:53)
[2020-03-07] MEDS: PANTOPRAZOLE 40 MG TABLET PO SCH (09:14)
[2020-03-07 09:27] LABS: African American GFR (CKD) 35 (>60 ml/min/1.73 sqM); Anion Gap 6 mmol/L; Blood Urea Nitrogen 34 mg/dL (7-17); Calcium 8.5 mg/dL (8.4-10.2); Carbon Dioxide 28 mmol/L (22-30); Chloride 105 mmol/L (98-107); Glucose 105 mg/dL (74-99); Magnesium 2.1 mg/dL (1.6-2.3); Non-African American GFR(CKD) 31 (>60 ml/min/1.73 sqM); Potassium 4.2 mmol/L (3.5-5.1); Sodium 139 mmol/L (137-145)
--- NOTE | 2020-03-07 10:10 | XR ---
EXAMINATION TYPE: XR chest 1V portable DATE OF EXAM: 03/07/2020 COMPARISON: 03/06/2020 INDICATION: Pneumothorax TECHNIQUE: Single frontal view of the chest is obtained. FINDINGS: The heart size is normal. The pulmonary vasculature is somewhat prominent. Is increased lung markings are present bilaterally. Small bilateral pleural effusions are present. Pa cemaker overlies left chest. Small right apical pneumothorax remains present. This appears somewhat smaller than comparison. IMPRESSION: 1. Diminishing right apical pneumothorax. 2. Mild diffuse increased lung markings. Continued follow-up is recommended
--- NOTE | 2020-03-07 12:06 | P.PN ---
Subjective Progress Note Date: 03/07/20 Patient had thoracentesis done yesterday, but had pneumothorax following procedure, differential between trapped lung vs pneumo; today repeat CXR appears to show resolving apical pneumo, but return of small to moderate pleural effusion. Pt reports feeling weak and dyspneic on exertion. Objective - Vital Signs Vital signs: Vital Signs Temp 98.8 F 03/07/20 08:00 Pulse 72 03/07/20 08:50 Resp 20 03/07/20 08:00 BP 120/56 03/07/20 08:00 Pulse Ox 99 03/07/20 08:00 Intake & Output 03/06/20 03/07/20 03/07/20 18:59 06:59 18:59 Intake Total 240 Output Total 300 Balance -60 Weight 67.4 kg Intake: Oral 240 Output: Urine 300 Other: Voiding Method Bedside Commode Bedside Commode # Voids 1 1 - Exam Gen: awake, alert HEENT: normocephalic, atraumatic, good hearing acuity, moist mucous membranes Resp: good air exchange, breathing comfortably with no accessory muscle use CVS: good distal perfusion x 4, GI: soft, NTTP, ND : no SPT, no CVAT, lopez catheter not present MSK: no pitting edema, no clubbing Neuro: non-focal, moving all extremities Psych: cooperative, euthymic mood - Labs CBC & Chem 7: 03/05/20 16:32 03/07/20 07:13 Labs: Abnormal Lab Results - Last 24 Hours (Table) 03/07/20 Range/Units 07:13 BUN 34 H (7-17) mg/dL Creatinine 1.51 H (0.52-1.04) mg/dL Glucose 105 H (74-99) mg/dL Microbiology - Last 24 Hours (Table) 03/06/20 14:30 Gram Stain - Preliminary Pleural Fluid Body Fluid Culture - Preliminary 03/06/20 14:30 Anaerobic Culture - Preliminary Pleural Fluid Assessment and Plan Assessment: 1. Acute Hypoxemic Respiratory Failure 2. Acute on Chronic Diastolic Heart Failure Exacerbation 3. Permanent Atrial Fibrillation, rate controlled, on Eliquis 4. CAD 5. HTN 6. HLD 7. Hypothyroidism 8. Iatrogenic Pneumothorax, resolving 89 year old woman with history of CAD/HTN/HLD, perm AFib, HFpEF presented with dyspnea and found to be in acute hypoxemic respiratory failure with evidence of moderate pleural effusion, worsening, on right side. She underwent thoracentesis, but this was complicated by pneumothorax. Pleural Fluid appeared transudative, likely related to heart failure. Shortness of breath, likely secondary to acute CHF exacerbation versus recurrent significant pleural effusion -Continue with Lasix for now -Cardiology consult, appreciate recs -Cardiac monitoring -Monitor electrolytes daily and replace as needed -Intake and output -Fluid restriction Recurrent right-sided pleural effusion with iatrogenic pneumothorax -IR consult for thoracentesis to further classify the type of effusion = transud ative -pulm consult for pneumothorax Hypokalemia -Replace and monitor Chronic kidney disease stage IIIB -At baseline Chronic conditions: Hypertension, hyperlipidemia, persistent A. fib, coronary ar kevin disease, hypothyroidism -Continue with home meds DVT prophylaxis -Eliquis The patient is admitted with an anticipated greater than 2 midnight stay for evaluation of SOB CODE STATUS: Full Code Discussed with: Patient Anticipated discharge date: 2-[address]: Home
[2020-03-07 12:36] VITALS: BMI 29.0
[2020-03-07] MEDS: ALPRAZolam 0.5 MG TAB PO SCH (20:53)
[2020-03-08] MEDS: LEVOTHYROXINE 112 MCG TAB PO SCH (05:57)
--- NOTE | 2020-03-08 08:46 | XR ---
EXAMINATION TYPE: XR chest 1V portable DATE OF EXAM: 03/08/2020 COMPARISON: 03-07-2020 INDICATION: Pneumothorax TECHNIQUE: Single frontal view of the chest is obtained. FINDINGS: The heart size is mild to prominent. The pulmonary vasculature is upper limits normal. Small right pleural effusion is present. Minimal left pleural effusion is present. Pacemaker overlies left chest . Minimal right apical pneumothorax is again evident. This is stable IMPRESSION: 1. Stable minimal right apical pneumothorax. 2. Diffuse mild infiltrate. 3. Bilateral pleural effusions
[2020-03-08] MEDS: IPRATROPIUM-ALBUTEROL 3 ML NEB INHALATION SCH ×4 (09:08→20:13)
[2020-03-08] MEDS: APIXABAN 2.5 MG TABLET PO SCH ×2 (09:16→21:53)
[2020-03-08] MEDS: carvediloL 3.125 MG TAB PO SCH ×2 (09:16→21:54)
[2020-03-08] MEDS: hydrALAZINE HCL 25 MG TAB PO SCH ×3 (09:16→21:54)
[2020-03-08] MEDS: ISOSORBIDE MONONITRATE ER 60 MG TAB.ER.24H PO SCH (09:16)
[2020-03-08] MEDS: SPIRONOLACTONE 25 MG TAB PO SCH (09:16)
[2020-03-08] MEDS: amLODIPine 10 MG TAB PO SCH (09:16)
[2020-03-08] MEDS: PANTOPRAZOLE 40 MG TABLET PO SCH (09:16)
[2020-03-08] MEDS: PRAVASTATIN SODIUM 40 MG TAB PO SCH (09:16)
[2020-03-08] MEDS: FUROSEMIDE 10 MG/ML 10 ML VIAL IV SCH ×2 (09:21→21:53)
[2020-03-08 10:09] LABS: African American GFR (CKD) 28.6 (60.0-200.0); Anion Gap 7.8 mmol/L (4.00-12.00); BUN/Creat Ratio 20.56 Ratio (12.00-20.00); Calcium 8.4 mg/dL (8.7-10.3); Carbon Dioxide 32.2 mmol/L (21.6-31.8); Non-African American GFR(CKD) 24.7 (60.0-200.0); Potassium 3.8 mmol/L (3.5-5.5)
[2020-03-08] MEDS: FUROSEMIDE 40 MG TAB PO SCH (10:32)
--- NOTE | 2020-03-08 14:41 | P.PN ---
Subjective Progress Note Date: 03/08/20 No new complaints. Pt continues to report dyspnea on minimal exertion and has poor exercise tolerance. Counseled on likely need for home O2 and physical therapy. IV diuretics plan for today, then to stop tomorrow. Objective - Vital Signs Vital signs: Vital Signs Temp 97.6 F 03/08/20 07:00 Pulse 64 03/08/20 09:00 Resp 20 03/08/20 07:00 BP 130/61 03/08/20 07:00 Pulse Ox 91 L 03/08/20 07:00 Intake & Output 03/07/20 03/08/20 03/08/20 18:59 06:59 18:59 Intake Total 360 300 Balance 360 300 Weight 67.4 kg 68.1 kg Intake: Oral 360 300 Other: Voiding Method Bedside Commode Bedside Commode # Voids 3 1 - Exam Gen: awake, alert HEENT: normocephalic, atraumatic, good hearing acuity, moist mucous membranes Resp: good air exchange, breathing comfortably with no accessory muscle use CVS: good distal perfusion x 4, bilateral posterior crackles to mid chest; diminished breath sounds on the right GI: soft, NTTP, ND : no SPT, no CVAT, lopez catheter not present MSK: no pitting edema, no clubbing Neuro: non-focal, moving all extremities Psych: cooperative, euthymic mood - Labs CBC & Chem 7: 03/05/20 16:32 03/08/20 06:51 Labs: Abnormal Lab Results - Last 24 Hours (Table) 03/08/20 Range/Units 06:51 Carbon Dioxide 32.2 H (21.6-31.8) mmol/L BUN 37.0 H (9.0-27.0) mg/dL Creatinine 1.8 H (0.6-1.5) mg/dL Est GFR (CKD-EPI)AfAm 28.6 L (60.0-200.0) Est GFR (CKD-EPI)NonAf 24.7 L (60.0-200.0) BUN/Creatinine Ratio 20.56 H (12.00-20.00) Ratio Calcium 8.4 L (8.7-10.3) mg/dL Microbiology - Last 24 Hours (Table) 03/06/20 14:30 Gram Stain - Preliminary Pleural Fluid Body Fluid Culture - Preliminary Assessment and Plan Assessment: 1. Acute Hypoxemic Respiratory Failure 2. Acute on Chronic Diastolic Heart Failure Exacerbation 3. Permanent Atrial Fibrillation, rate controlled, on Eliquis 4. CAD 5. HTN 6. HLD 7. Hypothyroidism 8. Iatrogenic Pneumothorax, resolving 89 year old woman with history of CAD/HTN/HLD, perm AFib, HFpEF presented with dyspnea and found to be in acute hypoxemic respiratory failure with evidence of moderate pleural effusion, worsening, on right side. She underwent thoracentesis, but this was complicated by pneumothorax. Pleural Fluid appeared transudative, likely related to heart failure. Shortness of breath, likely secondary to acute CHF exacerbation versus recurrent significant pleural effusion -Continue with Lasix for now; lasix 80mg IV BID, to stop after 12/14 AM dose, and then switch back to oral home dose -Cardiology consult, appreciate recs -Cardiac monitoring -Monitor electrolytes daily and replace as needed -Intake and output -Fluid restriction Recurrent right-sided pleural effusion with iatrogenic pneumothorax -IR consult for thoracentesis to further classify the type of effusion = villa sudative -pulm consult for pneumothorax Hypokalemia -Replace and monitor Chronic kidney disease stage IIIB -At baseline Chronic conditions: Hypertension, hyperlipidemia, persistent A. fib, coronary artery disease, hypothyroidism -Continue with home meds DVT prophylaxis -Eliquis The patient is admitted with an anticipated greater than 2 midnight stay for evaluation of SOB CODE STATUS: Full Code Discussed with: Patient Anticipated discharge date: 2-[address]: Home
[2020-03-08] MEDS: ALPRAZolam 0.5 MG TAB PO SCH (21:53)
[2020-03-09] MEDS: LEVOTHYROXINE 112 MCG TAB PO SCH (05:49)
[2020-03-09 07:19] VITALS: RESP 16
[2020-03-09] MEDS: IPRATROPIUM-ALBUTEROL 3 ML NEB INHALATION SCH ×3 (09:22→15:08)
[2020-03-09] MEDS: PRAVASTATIN SODIUM 40 MG TAB PO SCH (09:31)
[2020-03-09] MEDS: amLODIPine 10 MG TAB PO SCH (09:31)
[2020-03-09] MEDS: PANTOPRAZOLE 40 MG TABLET PO SCH (09:31)
[2020-03-09] MEDS: hydrALAZINE HCL 25 MG TAB PO SCH ×2 (09:31→12:06)
[2020-03-09] MEDS: ISOSORBIDE MONONITRATE ER 60 MG TAB.ER.24H PO SCH (09:31)
[2020-03-09] MEDS: SPIRONOLACTONE 25 MG TAB PO SCH (09:31)
[2020-03-09] MEDS: carvediloL 3.125 MG TAB PO SCH (09:31)
[2020-03-09] MEDS: APIXABAN 2.5 MG TABLET PO SCH (09:32)
[2020-03-09] MEDS: FUROSEMIDE 10 MG/ML 10 ML VIAL IV SCH (09:32)
--- NOTE | 2020-03-09 11:50 | XR ---
EXAMINATION TYPE: XR chest 2V DATE OF EXAM: 03/09/2020 COMPARISON: 03/08/2020 HISTORY: hx of R pneumothorax FINDINGS: There are bilateral pleural effusions with cardiomegaly and bibasilar infiltrate. There is a diffuse interstitial pattern. Cardiac device noted. Arthropathy of the shoulders with diffuse osteopenia. Im proved less than 5% right apical pneumothorax.. IMPRESSION: 1. Correlate for CHF otherwise consider interstitial pneumonia. 2. Improved right apical pneumothorax measuring less than 5%.
[2020-03-09 14:38] VITALS: BP 112/61; TEMP 98.4
--- NOTE | 2020-03-09 15:06 | P.DS ---
Providers Date of admission: 03/05/20 22:30 Expected date of discharge: 03/09/20 Attending physician: Gilberto Chirinos MD Consults: 03/05/20 17:48 Consult Physician Routine Consulting Provider: Arelis Rao Consult Reason/Comments: heart failure exacerbation Do you want consulting provider notified?: Yes 03/06/20 15:46 Consult Physician Urgent Consulting Provider: Sharla Jackson Consult Reason/Comments: pneumothorax s/p thoracentesis Do you want consulting provider notified?: Yes Primary care physician: Chris Heath MD Hospital Course: 89 year old woman with history of CAD/HTN/HLD, perm AFib, HFpEF presented with dyspnea and found to be in acute hypoxemic respiratory failure with evidence of moderate pleural effusion, worsening, on right side. She underwent thoracentesis, but this was complicated by pneumothorax. Pleural Fluid appeared transudative, likely related to heart failure. Patient was monitored in the hospital and daily chest x-ray showed resolving/stable pneumothorax less than 5%. Patient was weaned off of oxygen. On the day of discharge she was satting greater than 90% on room air and she was able to perform some exercise in her room. Diuresis switch back to oral Lasix. Below is a list of her medical problems. 1. Acute Hypoxemic Respiratory Failure 2. Acute on Chronic Diastolic Heart Failure Exacerbation 3. Permanent Atrial Fibrillation, rate controlled, on Eliquis 4. CAD 5. HTN 6. HLD 7. Hypothyroidism 8. Iatrogenic Pneumothorax, resolving Shortness of breath, likely secondary to acute CHF exacerbation versus recurrent significant pleural effusion -Continue with home dose of Lasix for now. Spironolactone added to her regimen -Fluid restriction 1.5 L per day Recurrent right-sided pleural effusion with iatrogenic pneumothorax Hypokalemia -Replaced Chronic kidney disease stage IIIB -At baseline Chronic conditions: Hypertension, hyperlipidemia, persistent A. fib, coronary artery disease, hypothyroidism -Continue with home meds Patient will be discharged home in a stable condition. For further details about this hospitalization please refer to the electronic chart. Time spent on discharge > 30 minutes including counseling and coordination of care Patient Condition at Discharge: Stable Plan - Discharge Summary New Discharge Prescriptions: New Spironolactone [Aldactone] 25 mg PO DAILY #30 tab Continue Levothyroxine Sodium 112 mcg PO DAILY@0600 Ergocalciferol (Vitamin D2) [Vitamin D2] 50,000 unit PO SA ALPRAZolam [Xanax] 0.5 mg PO HS@2100 Nitroglycerin Sl Tabs [Nitrostat] 0.4 mg SUBLINGUAL Q5M PRN PRN Reason: Chest Pain Albuterol Sulfate [Ventolin HFA] 1 - 2 puff INHALATION RT-Q6H PRN PRN Reason: Shortness Of Breath carvediloL [Coreg] 3.125 mg PO BID@0900,2099 Acetaminophen [Tylenol Extra Strength] 500 - 1,000 mg PO Q6H PRN PRN Reason: Pain Pravastatin Sodium [Pravachol] 40 mg PO DAILY@0900 hydrALAZINE HCL [Apresoline] 25 mg PO TID@0900,1300,2099 Apixaban [Eliquis] 2.5 mg PO BID@0900,2099 amLODIPine [Norvasc] 5 mg PO DAILY@0900 Furosemide [Lasix] 40 mg PO HS@2099 Furosemide [Lasix] 80 mg PO DAILY@0900 Ipratropium Nebulized [Atrovent Nebulized 0.2 MG/ML] 0.5 mg INHALATION RT-QID Ipratropium-Albuterol Nebulize [Duoneb 0.5 mg-3 mg/3 ml Soln] 3 ml INHALATION RT-Q4H PRN PRN Reason: Shortness Of Breath Or Wheezing Isosorbide Mononitrate ER [Imdur] 60 mg PO DAILY@0900 Latanoprost/Pf [Latanoprost 0.005% Eye Drop] 1 drop BOTH EYES HS@2100 Pantoprazole [Protonix] 40 mg PO DAILY@0900 Discharge Medication List ALPRAZolam [Xanax] 0.5 mg PO HS@2100 12/03/17 [History] Ergocalciferol (Vitamin D2) [Vitamin D2] 50,000 unit PO SA 12/03/17 [History] Levothyroxine Sodium 112 mcg PO DAILY@0600 12/03/17 [History] Nitroglycerin Sl Tabs [Nitrostat] 0.4 mg SUBLINGUAL Q5M PRN 06/09/18 [History] Albuterol Sulfate [Ventolin HFA] 1 - 2 puff INHALATION RT-Q6H PRN 09/16/19 [History] carvediloL [Coreg] 3.125 mg PO BID@09,209909/16/19 [History] Acetaminophen [Tylenol Extra Strength] 500 - 1,000 mg PO Q6H PRN 10/11/19 [History] Apixaban [Eliquis] 2.5 mg PO BID@09,209903/05/20 [History] Furosemide [Lasix] 40 mg PO HS@209903/05/20 [History] Furosemide [Lasix] 80 mg PO DAILY@89903/05/20 [History] Ipratropium Nebulized [Atrovent Nebulized 0.2 MG/ML] 0.5 mg INHALATION RT-QID 03/05/20 [History] Ipratropium-Albuterol Nebulize [Duoneb 0.5 mg-3 mg/3 ml Soln] 3 ml INHALATION RT-Q4H PRN 03/05/20 [History] Isosorbide Mononitrate ER [Imdur] 60 mg PO DAILY@89903/05/20 [History] Latanoprost/Pf [Latanoprost 0.005% Eye Drop] 1 drop BOTH EYES HS@209903/05/20 [History] Pantoprazole [Protonix] 40 mg PO DAILY@89903/05/20 [History] Pravastatin Sodium [Pravachol] 40 mg PO DAILY@89903/05/20 [History] amLODIPine [Norvasc] 5 mg PO DAILY@89903/05/20 [History] hydrALAZINE HCL [Apresoline] 25 mg PO TID@0900,1300,209903/05/20 [History] Spironolactone [Aldactone] 25 mg PO DAILY #30 tab 03/09/20 [Rx] Follow up Appointment(s)/Referral(s): Chris Heath MD [Primary Care Provider] - 1-2 days [facility] [NON-STAFF] - As Needed (Supplier of nebulizer in 2019, please contact them if anything needed for nebulizer. ) Arelis Rao MD [STAFF PHYSICIAN] - 2 Weeks Activity/Diet/Wound Care/Special Instructions: 1.5 Liter fluid restriction daily Discharge Disposition: HOME SELF-CARE
[2020-03-09 15:18] VITALS: PULSE 64
[2020-03-09] MEDS ORDERED: FUROSEMIDE 40 MG TAB PO SCH (16:00)
[2020-03-10] MEDS ORDERED: FUROSEMIDE 80 MG TAB PO SCH (09:00)
== END 2020-03-09 16:58 | disposition home or self-care (01) | DRG 291 ==
LOC: EC 15:46 → 3SCARD 17:49 → OBSVTOIN 22:30 → 3SCARD 03-06 01:43 → 4SSUR 03-06 12:45
PROVIDERS: ADMIT Internal Medicine; ATTEND Internal Medicine
PROC: 0W993ZZ Drainage of Right Pleural Cavity, Percutaneous Approach (ICD-10-PCS; principal; 2020-03-06)
DX: I13.0 Hypertensive heart and chronic kidney disease with heart failure and stage 1 through stage 4 chronic kidney disease, or unspecified chronic kidney disease (principal); I50.33 Acute on chronic diastolic (congestive) heart failure; J96.01 Acute respiratory failure with hypoxia; I48.21 Permanent atrial fibrillation; J98.11 Atelectasis; J91.8 Pleural effusion in other conditions classified elsewhere; J93.83 Other pneumothorax; I27.20 Pulmonary hypertension, unspecified; I49.5 Sick sinus syndrome; N18.32 Chronic kidney disease, stage 3b; Z79.01 Long term (current) use of anticoagulants; Z20.828 Contact with and (suspected) exposure to other viral communicable diseases; E78.5 Hyperlipidemia, unspecified; E87.6 Hypokalemia; E89.0 Postprocedural hypothyroidism; I25.10 Atherosclerotic heart disease of native coronary artery without angina pectoris; H40.9 Unspecified glaucoma; K21.9 Gastro-esophageal reflux disease without esophagitis; I08.1 Rheumatic disorders of both mitral and tricuspid valves; Z79.890 Hormone replacement therapy; Z79.899 Other long term (current) drug therapy; Z87.891 Personal history of nicotine dependence; Z90.710 Acquired absence of both cervix and uterus; Z95.0 Presence of cardiac pacemaker; Z95.5 Presence of coronary angioplasty implant and graft; Z96.651 Presence of right artificial knee joint; Z98.42 Cataract extraction status, left eye; Z98.41 Cataract extraction status, right eye; Z96.1 Presence of intraocular lens; Z88.5 Allergy status to narcotic agent; Z88.8 Allergy status to other drugs, medicaments and biological substances; Z87.19 Personal history of other diseases of the digestive system; Z87.898 Personal history of other specified conditions; Z87.39 Personal history of other diseases of the musculoskeletal system and connective tissue; Z98.890 Other specified postprocedural states; Z83.3 Family history of diabetes mellitus; Z80.9 Family history of malignant neoplasm, unspecified; Z82.0 Family history of epilepsy and other diseases of the nervous system; Y84.4 Aspiration of fluid as the cause of abnormal reaction of the patient, or of later complication, without mention of misadventure at the time of the procedure
CPT/HCPCS: 32555; 36415; 71045; 71046; 76604; 80048; 80076; 83615; 83735; 83880; 84157; 85025; 85610; 85730; 87070; 87075; 87205; 87635; 89050; 93005; 94640; 94760; 96374; 96376; 99285

== ENCOUNTER 2020-04-29 16:57 | Inpatient (IN) | payer MEDICARE, BC ==
[2020-04-29] MEDS ORDERED: ALBUTEROL HFA INHALER INHALATION STA (17:31)
--- NOTE | 2020-04-29 17:33 | ED ---
General Adult HPI - General Chief complaint: Shortness of Breath Stated complaint: SOB Time Seen by Provider: 04/29/20 17:16 Source: patient, RN notes reviewed Mode of arrival: wheelchair Limitations: no limitations - History of Present Illness Initial comments: Patient is a pleasant 89-year-old female presenting to the emergency Department with complaints of difficulty in breathing. Patient is somewhat a poor historian. Onset of symptoms was a couple of days ago. No significant cough. No fever. Patient does have history of CHF and COPD however is unclear if symptoms are similar to that. Patient does have some mild leg swelling which is chronic and unchanged. No calf pain. No chest pain. - Related Data Home Medications Medication Instructions Recorded Confirmed ALPRAZolam [Xanax] 0.5 mg PO HS@209912/03/17 03/05/20 Ergocalciferol (Vitamin D2) 50,000 unit PO SA 12/03/17 03/05/20 [Vitamin D2] Levothyroxine Sodium 112 mcg PO DAILY@59912/03/17 03/05/20 Nitroglycerin Sl Tabs [Nitrostat] 0.4 mg SUBLINGUAL Q5M PRN 06/09/18 03/05/20 Albuterol Sulfate [Ventolin HFA] 1 - 2 puff INHALATION RT-Q6H PRN 09/16/19 03/05/20 carvediloL [Coreg] 3.125 mg PO BID@00,209909/16/19 03/05/20 Acetaminophen [Tylenol Extra 500 - 1,000 mg PO Q6H PRN 10/11/19 03/05/20 Strength] Apixaban [Eliquis] 2.5 mg PO BID@899,209903/05/20 03/05/20 Furosemide [Lasix] 40 mg PO HS@209903/05/20 03/05/20 Furosemide [Lasix] 80 mg PO DAILY@89903/05/20 03/05/20 Ipratropium Nebulized [Atrovent 0.5 mg INHALATION RT-QID 03/05/20 03/05/20 Nebulized 0.2 MG/ML] Ipratropium-Albuterol Nebulize 3 ml INHALATION RT-Q4H PRN 03/05/20 03/05/20 [Duoneb 0.5 mg-3 mg/3 ml Soln] Isosorbide Mononitrate ER [Imdur] 60 mg PO DAILY@0900 03/05/20 03/05/20 Latanoprost/Pf [Latanoprost 0.005% 1 drop BOTH EYES HS@209903/05/20 03/05/20 Eye Drop] Pantoprazole [Protonix] 40 mg PO DAILY@0900 03/05/20 03/05/20 Pravastatin Sodium [Pravachol] 40 mg PO DAILY@0903/05/20 03/05/20 amLODIPine [Norvasc] 5 mg PO DAILY@0903/05/20 03/05/20 hydrALAZINE HCL [Apresoline] 25 mg PO TID@0900,1300,2100 03/05/20 03/05/20 Previous Rx's Medication Instructions Recorded Spironolactone [Aldactone] 25 mg PO DAILY #30 tab 03/09/20 Allergies Allergy/AdvReac Type Severity Reaction Status Date / Time brimonidine [From Simbrinza] Allergy Unknown Verified 04/29/20 17:15 brinzolamide [From Simbrinza] Allergy Unknown Verified 04/29/20 17:15 tramadol AdvReac Nausea & Verified 04/29/20 17:15 Vomiting Review of Systems ROS Statement: Those systems with pertinent positive or pertinent negative responses have been documented in the HPI. ROS Other: All systems not noted in ROS Statement are negative. Constitutional: Denies: fever Eyes: Denies: eye pain ENT: Denies: ear pain Respiratory: Reports: dyspnea. Denies: cough Cardiovascular: Denies: chest pain Endocrine: Reports: fatigue Gastrointestinal: Denies: abdominal pain Genitourinary: Denies: dysuria Musculoskeletal: Denies: back pain Skin: Denies: rash Neurological: Denies: weakness Past Medical History Past Medical History: Atrial Fibrillation, Coronary Artery Disease (CAD), Heart Failure, GERD/Reflux, Hyperlipidemia, Hypertension, Respiratory Disorder, Thyroid Disorder Additional Past Medical History / Comment(s): Coronary artery disease, chronic atrial fibrillation, hypertension, hyperlipidemia, chronic stage II kidney disease with a baseline creatinine of around 1.5, hypothyroidism, glaucoma, History of Any Multi-Drug Resistant Organisms: None Reported Past Surgical History: Cholecystectomy, Heart Catheterization With Stent, Hysterectomy, Orthopedic Surgery, Tonsillectomy Additional Past Surgical History / Comment(s): right knee replacement, carpal tunnel release, "thyroidectomy", fco feet -heel spurs, cataracts-lens implants. pacemarker September 2019 Past Anesthesia/Blood Transfusion Reactions: No Reported Reaction Date of Last Stent Placement:: 2013 Past Psychological History: No Psychological Hx Reported Smoking Status: Former smoker Past Alcohol Use History: None Reported Past Drug Use History: None Reported - Past Family History Daughter(s) Additional Family Medical History / Comment(s): short term memory loss Father Additional Family Medical History / Comment(s): denies family history of cancer or DM in her mother General Exam Limitations: no limitations General appearance: alert, in no apparent distress Head exam: Present: normocephalic Eye exam: Present: normal appearance Neck exam: Present: normal inspection Respiratory exam: Present: rales Cardiovascular Exam: Present: regular rate, normal rhythm GI/Abdominal exam: Present: soft. Absent: tenderness Extremities exam: Present: pedal edema (+1 bilateral). Absent: calf tenderness Neurological exam: Present: alert Psychiatric exam: Present: normal affect, normal mood Skin exam: Present: normal color Course Vital Signs 04/29/20 04/29/20 04/29/20 17:13 17:37 18:48 Temperature 97.9 F 98.1 F Pulse Rate 70 66 Respiratory 16 18 18 Rate Blood Pressure 158/60 161/63 O2 Sat by Pulse 95 99 Oximetry EKG Findings - EKG Comments: EKG Findings:: Paced rhythm with a rate of 61. QRS 178. QTC 512. QTC 5:15. Right axis. Wide QRS complex. No acute ST change. Medical Decision Making - Medical Decision Making Patient reevaluated and updated. Case discussed with Dr. juliana jc, covering for Dr. Lopez, who will admit. Chest x-ray does have suspicion for pneumonia and patient will be covered with antibiotics. Patient does not meet sepsis criteria. - Lab Data Result diagrams: 04/29/20 17:55 04/29/20 17:55 Lab Results 04/29/20 04/29/20 04/29/20 Range/Units 17:55 17:55 17:55 WBC 6.0 (3.8-10.6) k/uL RBC 3.83 (3.80-5.40) m/uL Hgb 10.7 L (11.4-16.0) gm/dL Hct 33.0 L (34.0-46.0) % MCV 86.2 (80.0-100.0) fL MCH 28.0 (25.0-35.0) pg MCHC 32.4 (31.0-37.0) g/dL RDW 17.0 H (11.5-15.5) % Plt Count 247 (150-450) k/uL MPV 6.9 Neutrophils % 80 % Lymphocytes % 12 % Monocytes % 5 % Eosinophils % 2 % Basophils % 1 % Neutrophils # 4.8 (1.3-7.7) k/uL Lymphocytes # 0.7 L (1.0-4.8) k/uL Monocytes # 0.3 (0-1.0) k/uL Eosinophils # 0.1 (0-0.7) k/uL Basophils # 0.0 (0-0.2) k/uL Hypochromasia Moderate Poikilocytosis Slight Anisocytosis Slight PT 11.8 (9.0-12.0) sec INR 1.1 (<1.2) APTT 24.6 (22.0-30.0) sec Sodium 139 (137-145) mmol/L Potassium 3.3 L (3.5-5.1) mmol/L Chloride 95 L (98-107) mmol/L Carbon Dioxide 36 H (22-30) mmol/L Anion Gap 8 mmol/L BUN 38 H (7-17) mg/dL Creatinine 1.67 H (0.52-1.04) mg/dL Est GFR (CKD-EPI)AfAm 31 (>60 ml/min/1.73 sqM) Est GFR (CKD-EPI)NonAf 27 (>60 ml/min/1.73 sqM) Glucose 111 H (74-99) mg/dL Plasma Lactic Acid Jose (0.7-2.0) mmol/L Calcium 8.9 (8.4-10.2) mg/dL Magnesium 2.2 (1.6-2.3) mg/dL Total Bilirubin 0.7 (0.2-1.3) mg/dL AST 20 (14-36) U/L ALT 13 (4-34) U/L Alkaline Phosphatase 131 H (38-126) U/L Lactate Dehydrogenase 563 (313-618) U/L Troponin I (0.000-0.034) ng/mL C-Reactive Protein 34.6 H (<10.0) mg/L NT-Pro-B Natriuret Pep pg/mL Total Protein 7.4 (6.3-8.2) g/dL Albumin 3.9 (3.5-5.0) g/dL Coronavirus (PCR) (Not Detectd) 04/29/20 04/29/20 04/29/20 Range/Units 17:55 17:55 17:55 WBC (3.8-10.6) k/uL RBC (3.80-5.40) m/uL Hgb (11.4-16.0) gm/dL Hct (34.0-46.0) % MCV (80.0-100.0) fL MCH (25.0-35.0) pg MCHC (31.0-37.0) g/dL RDW (11.5-15.5) % Plt Count (150-450) k/uL MPV Neutrophils % % Lymphocytes % % Monocytes % % Eosinophils % % Basophils % % Neutrophils # (1.3-7.7) k/uL Lymphocytes # (1.0-4.8) k/uL Monocytes # (0-1.0) k/uL Eosinophils # (0-0.7) k/uL Basophils # (0-0.2) k/uL Hypochromasia Poikilocytosis Anisocytosis PT (9.0-12.0) sec INR (<1.2) APTT (22.0-30.0) sec Sodium (137-145) mmol/L Potassium (3.5-5.1) mmol/L Chloride (98-107) mmol/L Carbon Dioxide (22-30) mmol/L Anion Gap mmol/L BUN (7-17) mg/dL Creatinine (0.52-1.04) mg/dL Est GFR (CKD-EPI)AfAm (>60 ml/min/1.73 sqM) Est GFR (CKD-EPI)NonAf (>60 ml/min/1.73 sqM) Glucose (74-99) mg/dL Plasma Lactic Acid Jose 1.1 (0.7-2.0) mmol/L Calcium (8.4-10.2) mg/dL Magnesium (1.6-2.3) mg/dL Total Bilirubin (0.2-1.3) mg/dL AST (14-36) U/L ALT (4-34) U/L Alkaline Phosphatase (38-126) U/L Lactate Dehydrogenase (313-618) U/L Troponin I 0.031 (0.000-0.034) ng/mL C-Reactive Protein (<10.0) mg/L NT-Pro-B Natriuret Pep 4250 pg/mL Total Protein (6.3-8.2) g/dL Albumin (3.5-5.0) g/dL Coronavirus (PCR) (Not Detectd) 04/29/20 Range/Units 17:55 WBC (3.8-10.6) k/uL RBC (3.80-5.40) m/uL Hgb (11.4-16.0) gm/dL Hct (34.0-46.0) % MCV (80.0-100.0) fL MCH (25.0-35.0) pg MCHC (31.0-37.0) g/dL RDW (11.5-15.5) % Plt Count (150-450) k/uL MPV Neutrophils % % Lymphocytes % % Monocytes % % Eosinophils % % Basophils % % Neutrophils # (1.3-7.7) k/uL Lymphocytes # (1.0-4.8) k/uL Monocytes # (0-1.0) k/uL Eosinophils # (0-0.7) k/uL Basophils # (0-0.2) k/uL Hypochromasia Poikilocytosis Anisocytosis PT (9.0-12.0) sec INR (<1.2) APTT (22.0-30.0) sec Sodium (137-145) mmol/L Potassium (3.5-5.1) mmol/L Chloride (98-107) mmol/L Carbon Dioxide (22-30) mmol/L Anion Gap mmol/L BUN (7-17) mg/dL Creatinine (0.52-1.04) mg/dL Est GFR (CKD-EPI)AfAm (>60 ml/min/1.73 sqM) Est GFR (CKD-EPI)NonAf (>60 ml/min/1.73 sqM) Glucose (74-99) mg/dL Plasma Lactic Acid Jose (0.7-2.0) mmol/L Calcium (8.4-10.2) mg/dL Magnesium (1.6-2.3) mg/dL Total Bilirubin (0.2-1.3) mg/dL AST (14-36) U/L ALT (4-34) U/L Alkaline Phosphatase (38-126) U/L Lactate Dehydrogenase (313-618) U/L Troponin I (0.000-0.034) ng/mL C-Reactive Protein (<10.0) mg/L NT-Pro-B Natriuret Pep pg/mL Total Protein (6.3-8.2) g/dL Albumin (3.5-5.0) g/dL Coronavirus (PCR) Not Detected (Not Detectd) - Radiology Data Radiology results: image reviewed (Chest x-ray shows right-sided effusion and infiltrate. Mild CHF.) Disposition Clinical Impression: Congestive heart failure, Pleural effusion Disposition: ADMITTED IP TO THIS HOSP Is patient prescribed a controlled substance at d/c from ED?: No Referrals: Chris Heath MD [Primary Care Provider] - 1-2 days Decision Time: 19:46
[2020-04-29 18:13] LABS: Anisocytosis Slight; Basophils % (A) 1 %; Eosinophils # (A) 0.1 k/uL (0-0.7); Eosinophils % (A) 2 %; HGB 10.7 gm/dL (11.4-16.0); Hypochromasia Moderate; Lymphocytes # (A) 0.7 k/uL (1.0-4.8); Lymphocytes % (A) 12 %; MCHC 32.4 g/dL (31.0-37.0); MCV 86.2 fL (80.0-100.0); Mean Platelet Volume 6.9; Monocytes # (A) 0.3 k/uL (0-1.0); Monocytes % (A) 5 %; Neutrophils # (A) 4.8 k/uL (1.3-7.7); Neutrophils % (A) 80 %; Platelet Count 247 k/uL (150-450); Poikilocytosis Slight; RBC 3.83 m/uL (3.80-5.40)
--- NOTE | 2020-04-29 18:19 | XR ---
EXAMINATION TYPE: XR chest 1V portable DATE OF EXAM: 04/29/2020 COMPARISON: 03/09/2020 HISTORY: Short of breath. Atrial fibrillation. TECHNIQUE: Single view FINDINGS: There is blunting right costophrenic angle. There is airspace consolidation right lower lob e. There is some coarsening of interstitial markings in the other lung singer. There is left axillary pacemaker. IMPRESSION: There is right pleural effusion and right lower lobe pneumonia that is the same or slight ly worse than last exam. There is probably mild heart failure improved compared to last exam.
[2020-04-29 18:25] LABS: Albumin 3.9 g/dL (3.5-5.0); C Reactive Protein 34.6 mg/L (<10.0); Calcium 8.9 mg/dL (8.4-10.2); Magnesium 2.2 mg/dL (1.6-2.3); Potassium 3.3 mmol/L (3.5-5.1); Total Bilirubin 0.7 mg/dL (0.2-1.3); Total Protein 7.4 g/dL (6.3-8.2)
[2020-04-29 18:28] LABS: INR 1.1 (<1.2); Partial Thromboplastin Time 24.6 sec (22.0-30.0); Prothrombin Time 11.8 sec (9.0-12.0)
[2020-04-29] MEDS ORDERED: ASPIRIN 325 MG TAB PO STA (19:48)
[2020-04-29] MEDS ORDERED: AZITHROMYCIN 500 MG in SODIUM CHLORIDE 0.9% 250 ML IVPB ONE (20:30)
[2020-04-29] MEDS: FUROSEMIDE 10 MG/ML 4 ML VIAL IV SCH (20:32)
[2020-04-29] MEDS: NITROGLYCERIN OINT 1 INCH/GM PACKET TOPICAL SCH (23:24)
--- NOTE | 2020-04-29 23:37 | P.HPIM ---
History of Present Illness H&P Date: 04/29/20 Patient is an 89-year-old female with a PMH of CAD status post stenting, persistent A. fib on Eliquis, pacemaker placement, chronic kidney disease stage IIIB, diastolic CHF, hypertension, hyperlipidemia who presented to the emergency room with complaints of shortness breath. The patient reports gradually worsening shortness of breath. The patient was previously seen in the hospital with similar complaints in 02/2020 when she was noted to have a pleural effusion and underwent thoracentesis showing transudative fluid. Patient notes that her shortness of breath is now severely limiting her ability to perform her ADLs. She reports lower extremity edema along with orthopnea and PND. She denied chest discomfort, fever, or chills. Also denied nausea, vomiting, diarrhea. In the emergency room, chest x-ray revealed a right pleural effusion with a right lower lobe suspected infiltrate. EKG revealed a wide QRS rhythm at 61 bpm. After evaluation was remarkable for a potassium of 3.3, BUN 38, creatinine 1.67, hemoglobin 10.7, alk phos 131, troponin 0.031, and proBNP 4250. Review of Systems Pertinent positives and negatives as discussed in HPI, a complete review of systems was performed and all other systems are negative. Past Medical History Past Medical History: Atrial Fibrillation, Coronary Artery Disease (CAD), Heart Failure, GERD/Reflux, Hyperlipidemia, Hypertension, Respiratory Disorder, Thyroid Disorder Additional Past Medical History / Comment(s): Coronary artery disease, chronic atrial fibrillation, hypertension, hyperlipidemia, chronic stage II kidney disease with a baseline creatinine of around 1.5, hypothyroidism, glaucoma, History of Any Multi-Drug Resistant Organisms: None Reported Past Surgical History: Cholecystectomy, Heart Catheterization With Stent, Hysterectomy, Orthopedic Surgery, Tonsillectomy Additional Past Surgical History / Comment(s): right knee replacement, carpal tunnel release, "thyroidectomy", fco feet -heel spurs, cataracts-lens implants. pacemarker September 2019 Past Anesthesia/Blood Transfusion Reactions: No Reported Reaction Date of Last Stent Placement:: 2013 Past Psychological History: No Psychological Hx Reported Smoking Status: Former smoker Past Alcohol Use History: None Reported Past Drug Use History: None Reported - Past Family History Daughter(s) Additional Family Medical History / Comment(s): short term memory loss Father Additional Family Medical History / Comment(s): denies family history of cancer or DM in her mother Medications and Allergies Home Medications Medication Instructions Recorded Confirmed Type ALPRAZolam [Xanax] 0.5 mg PO HS@209912/03/17 04/29/20 History Ergocalciferol (Vitamin D2) 50,000 unit PO SA@209912/03/17 04/29/20 History [Vitamin D2] Levothyroxine Sodium 112 mcg PO DAILY@0600 12/03/17 04/29/20 History carvediloL [Coreg] 3.125 mg PO BID@0900,209909/16/19 04/29/20 History Acetaminophen [Tylenol Extra 500 - 1,000 mg PO Q8H PRN 10/11/19 04/29/20 History Strength] Apixaban [Eliquis] 2.5 mg PO BID@0900,209903/05/20 04/29/20 History Furosemide [Lasix] 40 mg PO DAILY@1500 03/05/20 04/29/20 History Furosemide [Lasix] 80 mg PO DAILY@0900 03/05/20 04/29/20 History Ipratropium-Albuterol Nebulize 3 ml INHALATION RT-Q4H 03/05/20 04/29/20 History [Duoneb 0.5 mg-3 mg/3 ml Soln] Pantoprazole [Protonix] 40 mg PO DAILY@0900 03/05/20 04/29/20 History Pravastatin Sodium [Pravachol] 40 mg PO DAILY@0900 03/05/20 04/29/20 History hydrALAZINE HCL [Apresoline] 25 mg PO TID@0900,1300,2100 03/05/20 04/29/20 History Isosorbide Mononitrate ER [Imdur] 30 mg PO DAILY 04/29/20 04/29/20 History Potassium Chloride ER [K-Dur 10] 10 meq PO DAILY@0900 04/29/20 04/29/20 History Spironolactone [Aldactone] 25 mg PO HS 04/29/20 04/29/20 History Allergies Allergy/AdvReac Type Severity Reaction Status Date / Time brimonidine [From Simbrinza] Allergy Unknown Verified 04/29/20 19:50 brinzolamide [From Simbrinza] Allergy Unknown Verified 04/29/20 19:50 tramadol AdvReac Nausea & Verified 04/29/20 19:50 Vomiting Physical Exam Vitals: Vital Signs Temp Pulse Pulse Resp BP BP Pulse Ox 04/29/20 21:06 97.5 F L 62 16 184/48 94 L 04/29/20 18:48 98.1 F 66 18 161/63 99 04/29/20 17:37 18 04/29/20 17:13 97.9 F 70 16 158/60 95 Intake and Output 04/29/20 04/29/20 04/29/20 06:59 14:59 22:59 Other: Weight 68.039 kg General: non toxic, no distress, appears at stated age, overweight Derm: no unusual rashes/lesions no unusual ecchymoses, warm, dry Head: atraumatic, normocephalic, symmetric Eyes: EOMI, no lid lag, anicteric sclera, pupils equal round reactive to light ENT: Nose and ears atraumatic, no thrush, no pharyngeal erythema Neck: No thyromegaly, no cervical lymphadenopathy, trachea midline, supple Mouth: no lip lesion, mucus membranes moist Cardiovascular: S1S2 reg, no murmur, positive posterior tibial pulse bilateral, 2+ bilateral lower extremity pitting edema, capillary refill less than 2 seconds Lungs: Bilateral rales diffusely, mild wheezing, no accessory muscle use Abdominal: soft, nontender to palpation, no guarding, no appreciable organomegaly, normal bowel sounds Ext: no gross muscle atrophy, muscle strength 5 out of 5 in all 4 extremities grossly, no contractures, Neuro: CN II-XI grossly intact, light touch intact all 4 extremities, finger to nose within normal limits, Psych: Alert, oriented, appropriate affect Results CBC & Chem 7: 04/29/20 17:55 04/29/20 17:55 Labs: Abnormal Lab Results - Last 24 Hours (Table) 04/29/20 04/29/20 Range/Units 17:55 17:55 Hgb 10.7 L (11.4-16.0) gm/dL Hct 33.0 L (34.0-46.0) % RDW 17.0 H (11.5-15.5) % Lymphocytes # 0.7 L (1.0-4.8) k/uL Potassium 3.3 L (3.5-5.1) mmol/L Chloride 95 L (98-107) mmol/L Carbon Dioxide 36 H (22-30) mmol/L BUN 38 H (7-17) mg/dL Creatinine 1.67 H (0.52-1.04) mg/dL Glucose 111 H (74-99) mg/dL Alkaline Phosphatase 131 H (38-126) U/L C-Reactive Protein 34.6 H (<10.0) mg/L Assessment and Plan Plan: Shortness of breath, likely acute on chronic diastolic CHF exacerbation -Continue with IV Lasix -Cardiac monitoring -Cardiology consult -Daily weights, fluid restriction, intake and output Wide-complex rhythm, with pacemaker in place -Will need to be interrogated -Continue cardiac monitoring Infiltrate on chest x-ray -Low suspicion for pneumonia in absence of cough, leukocytosis, or fever -Consider repeat prior to DC to ensure clearance Hypokalemia -Replace and monitor Chronic conditions: Persistent A. fib, hypothyroidism, hypertension, hyperlipidemia, chronic kidney disease stage IIIb -Continue with home meds DVT prophylaxis -Eliquis The patient is admitted with an anticipated greater than 2 midnight stay for evaluation of CHF. CODE STATUS: Full code Discussed with: Patient Anticipated discharge date: 2-[address]: Home A total of 35 minutes was spent on the care of this complex patient more than 50% of the time was spent in counseling and care coordination.
[2020-04-30] MEDS ORDERED: SPIRONOLACTONE 25 MG TAB PO SCH
[2020-04-30 00:10] LABS: Ferritin 100.1 ng/mL (10.0-291.0)
[2020-04-30] MEDS: carvediloL 3.125 MG TAB PO SCH ×3 (00:15→21:53)
[2020-04-30] MEDS: APIXABAN 2.5 MG TABLET PO SCH ×3 (00:15→21:53)
[2020-04-30] MEDS: hydrALAZINE HCL 25 MG TAB PO SCH ×4 (00:15→21:53)
[2020-04-30] MEDS ORDERED: ALPRAZolam 0.5 MG TAB PO STA (00:42)
[2020-04-30] MEDS: ALBUTEROL HFA INHALER INHALATION SCH ×4 (01:04→19:20)
[2020-04-30] MEDS: POTASSIUM CHLORIDE ER 20 MEQ TAB.ER PO SCH ×2 (01:07→04:52)
[2020-04-30] MEDS ORDERED: ALPRAZolam 0.5 MG TAB PO ONE (01:15)
[2020-04-30] MEDS: LEVOTHYROXINE 112 MCG TAB PO SCH (04:51)
[2020-04-30] MEDS: PRAVASTATIN SODIUM 40 MG TAB PO SCH (07:30)
[2020-04-30] MEDS: ISOSORBIDE MONONITRATE ER 30 MG TAB.ER.24H PO SCH (07:30)
[2020-04-30] MEDS: NITROGLYCERIN OINT 1 INCH/GM PACKET TOPICAL SCH (07:30)
[2020-04-30] MEDS: FUROSEMIDE 10 MG/ML 4 ML VIAL IV SCH ×2 (07:30→19:19)
[2020-04-30] MEDS: PANTOPRAZOLE 40 MG TABLET PO SCH (07:30)
[2020-04-30] MEDS ORDERED: SPIRONOLACTONE 25 MG TAB PO STA (11:41)
--- NOTE | 2020-04-30 12:32 | P.CRDCN ---
History of Present Illness Consult date: 04/30/20 History of present illness: CHIEF COMPLAINT: Shortness of breath HISTORY OF PRESENT ILLNESS: This is a 89-year-old female with a past medical history significant for chronic persistent atrial fibrillation, coronary artery disease with PCI to the RCA, permanent pacemaker insertion, hypertension, and hyperlipidemia. Patient follows in the office with Dr. Rao. We have been asked to see the patient in consultation for shortness of breath. Patient states she has been having progressive shortness and lower extremity edema over the past two days. Patient denies chest pain or pressure. Denies cough. Denies fever or chills. Patient was hospitalized in February 2020 and underwent thoracentesis with removal of 900cc. DIAGNOSTICS: EKG reveals atrial fibrillation. Chest xray right pleural effusion and right lower lobe pneumonia that is the same or slightly worsened last exam. Likely mild heart failure. Laboratory data: WBC 6.0. Hemoglobin 10.7. Platelet count 247. Sodium 139. Potassium 3.3. BUN 38. Creatinine 1.67. Troponin 0.031. BNP 4250. Current home cardiac medications include Aldactone 25 mg at night, carvedilol 3.125 mg twice a day, Lasix 80 mg in the morning and 40 mg in the afternoon, Eliquis 2.5 mg twice a day, hydralazine 25 mg 3 times a day, and Imdur 30 mg daily Echocardiogram completed in August 2019 revealed ejection fraction 55-60% REVIEW OF SYSTEMS: At the time of my exam: CONSTITUTIONAL: Denies fever or chills. HEENT: Denies blurred vision, vision changes, or eye pain. Denies hemoptysis CARDIOVASCULAR: Denies chest pain, orthopnea, PND or palpitations RESPIRATORY: No shortness of breath. GASTROINTESTINAL: Denies abdominal pain. Denies nausea or vomiting. HEMATOLOGIC: Denies bleeding disorders. GENITOURINARY: Denies any blood in urine. SKIN: Denies pruitis. Denies rash. PHYSICAL EXAM: VITAL SIGNS: Reviewed. GENERAL: Well-developed in no acute distress. HEENT: Head is normocephalic. Pupils are equal, round. Sclerae anicteric. Mucous membranes of the mouth are moist. Neck supple. No JVD or thyromegaly LUNGS: Respirations even and unlabored. Lungs diminished with a few rales to bilateral bases. HEART: Regular rate and rhythm. S1 and S2 heard. ABDOMEN: Soft. Nondistended. Nontender. EXTREMITIES: Normal range of motion. No clubbing or cyanosis. Peripheral pulses intact. 1-2+ bilateral lower extremity edema NEUROLOGIC: Awake and alert. Oriented x 3. ASSESSMENT: Shortness of breath Acute exacerbation of chronic diastolic congestive heart failure, EF 55-60% Right pleural effusion Coronary artery disease with previous PCI to RCA Chronic persistent atrial fibrillation, on anticoagulation with Eliquis History of permanent pacemaker insertion Hypertension Hyperlipidemia Chronic kidney disease PLAN: Continue current cardiac medications Continue Eliquis for anticoagulation Continue IV lasix Change aldactone to morning dosing instead of at night Daily weights Accurate I&O Monitor kidney function Obtain US of chest to evaluate size of pleural effusion. Possible pulmonary consult if effusion large enough for thoracentesis Nurse practitioner note has been reviewed by physician. Signing provider agrees with the documented findings, assessment, and plan of care. Past Medical History Past Medical History: Atrial Fibrillation, Coronary Artery Disease (CAD), Heart Failure, GERD/Reflux, Hyperlipidemia, Hypertension, Respiratory Disorder, Thyroid Disorder Additional Past Medical History / Comment(s): Coronary artery disease, chronic atrial fibrillation, hypertension, hyperlipidemia, chronic stage II kidney disease with a baseline creatinine of around 1.5, hypothyroidism, glaucoma, History of Any Multi-Drug Resistant Organisms: None Reported Past Surgical History: Cholecystectomy, Heart Catheterization With Stent, Hysterectomy, Orthopedic Surgery, Tonsillectomy Additional Past Surgical History / Comment(s): right knee replacement, carpal tunnel release, "thyroidectomy", fco feet -heel spurs, cataracts-lens implants. pacemarker September 2019 Past Anesthesia/Blood Transfusion Reactions: No Reported Reaction Date of Last Stent Placement:: 2013 Past Psychological History: No Psychological Hx Reported Smoking Status: Former smoker Past Alcohol Use History: None Reported Past Drug Use History: None Reported - Past Family History Daughter(s) Additional Family Medical History / Comment(s): short term memory loss Father Additional Family Medical History / Comment(s): denies family history of cancer or DM in her mother Medications and Allergies Home Medications Medication Instructions Recorded Confirmed Type ALPRAZolam [Xanax] 0.5 mg PO HS@209912/03/17 04/29/20 History Ergocalciferol (Vitamin D2) 50,000 unit PO SA@209912/03/17 04/29/20 History [Vitamin D2] Levothyroxine Sodium 112 mcg PO DAILY@0600 12/03/17 04/29/20 History carvediloL [Coreg] 3.125 mg PO BID@0900,2100 09/16/19 04/29/20 History Acetaminophen [Tylenol Extra 500 - 1,000 mg PO Q8H PRN 10/11/19 04/29/20 History Strength] Apixaban [Eliquis] 2.5 mg PO BID@0900,2100 03/05/20 04/29/20 History Furosemide [Lasix] 40 mg PO DAILY@1500 03/05/20 04/29/20 History Furosemide [Lasix] 80 mg PO DAILY@0900 03/05/20 04/29/20 History Ipratropium-Albuterol Nebulize 3 ml INHALATION RT-Q4H 03/05/20 04/29/20 History [Duoneb 0.5 mg-3 mg/3 ml Soln] Pantoprazole [Protonix] 40 mg PO DAILY@0900 03/05/20 04/29/20 History Pravastatin Sodium [Pravachol] 40 mg PO DAILY@0900 03/05/20 04/29/20 History hydrALAZINE HCL [Apresoline] 25 mg PO TID@0900,1300,2100 03/05/20 04/29/20 History Isosorbide Mononitrate ER [Imdur] 30 mg PO DAILY 04/29/20 04/29/20 History Potassium Chloride ER [K-Dur 10] 10 meq PO DAILY@0900 04/29/20 04/29/20 History Spironolactone [Aldactone] 25 mg PO HS 04/29/20 04/29/20 History Allergies Allergy/AdvReac Type Severity Reaction Status Date / Time brimonidine [From Simbrinza] Allergy Unknown Verified 04/29/20 19:50 brinzolamide [From Simbrinza] Allergy Unknown Verified 04/29/20 19:50 tramadol AdvReac Nausea & Verified 04/29/20 19:50 Vomiting Physical Exam Vitals: Vital Signs Temp Pulse Pulse Resp BP BP Pulse Ox 04/30/20 07:18 97.7 F 64 18 129/77 99 04/30/20 02:01 98.4 F 64 16 105/55 97 04/29/20 21:06 97.5 F L 62 16 184/48 94 L 04/29/20 18:48 98.1 F 66 18 161/63 99 04/29/20 17:37 18 04/29/20 17:13 97.9 F 70 16 158/60 95 Intake and Output 04/29/20 04/30/20 04/30/20 22:59 06:59 14:59 Intake Total 220 Balance 220 Intake: Oral 220 Other: Voiding Method Diaper # Voids 3 Weight 68.039 kg Results 04/29/20 17:55 04/29/20 17:55 Cardiac Enzymes 04/29/20 04/29/20 Range/Units 17:55 17:55 AST 20 (14-36) U/L Lactate Dehydrogenase 563 (313-618) U/L Troponin I 0.031 (0.000-0.034) ng/mL Coagulation 04/29/20 Range/Units 17:55 PT 11.8 (9.0-12.0) sec APTT 24.6 (22.0-30.0) sec CBC 04/29/20 Range/Units 17:55 WBC 6.0 (3.8-10.6) k/uL RBC 3.83 (3.80-5.40) m/uL Hgb 10.7 L (11.4-16.0) gm/dL Hct 33.0 L (34.0-46.0) % Plt Count 247 (150-450) k/uL Comprehensive Metabolic Panel 04/29/20 Range/Units 17:55 Sodium 139 (137-145) mmol/L Potassium 3.3 L (3.5-5.1) mmol/L Chloride 95 L (98-107) mmol/L Carbon Dioxide 36 H (22-30) mmol/L BUN 38 H (7-17) mg/dL Creatinine 1.67 H (0.52-1.04) mg/dL Glucose 111 H (74-99) mg/dL Calcium 8.9 (8.4-10.2) mg/dL AST 20 (14-36) U/L ALT 13 (4-34) U/L Alkaline Phosphatase 131 H (38-126) U/L Total Protein 7.4 (6.3-8.2) g/dL Albumin 3.9 (3.5-5.0) g/dL Current Medications Generic Name Dose Route Start Last Admin Trade Name Freq PRN Reason Stop Dose Admin Albuterol Sulfate 2 puff 04/30/20 02:00 04/30/20 11:19 Albuterol Hfa Inhaler INHALATION 2 puff RT-Q6H LEONARDO Administration Albuterol Sulfate 2 puff 04/29/20 17:31 Albuterol Hfa Inhaler INHALATION RT-Q6H PRN Shortness Of Breath Or Wheezing Alprazolam 0.5 mg 04/30/20 21:00 Alprazolam 0.5 Mg Tab PO HS@2100 LEONARDO Apixaban 2.5 mg 04/30/20 00:00 04/30/20 07:31 Apixaban 2.5 Mg Tablet PO 2.5 mg BID@0900,2099 LEONARDO Administration Carvedilol 3.125 mg 04/30/20 00:00 04/30/20 07:31 Carvedilol 3.125 Mg Tab PO 3.125 mg BID@0900,2100 LEONARDO Administration Furosemide 40 mg 04/29/20 20:00 04/30/20 07:30 Furosemide 10 Mg/Ml 4 Ml Vial IV 40 mg Q12H LEONARDO Administration Hydralazine HCl 25 mg 04/30/20 00:00 04/30/20 07:30 Hydralazine Hcl 25 Mg Tab PO 25 mg TID@0900,1300,2100 LEONARDO Administration Isosorbide Mononitrate 30 mg 04/30/20 09:00 04/30/20 07:30 Isosorbide Mononitrate Er 30 Mg Tab.Er.24h PO 30 mg DAILY LEONARDO Administration Levothyroxine Sodium 112 mcg 04/30/20 06:00 04/30/20 04:51 Levothyroxine 112 Mcg Tab PO 112 mcg DAILY@0600 LEONARDO Administration Pantoprazole Sodium 40 mg 04/30/20 09:00 04/30/20 07:30 Pantoprazole 40 Mg Tablet PO 40 mg DAILY@0900 LEONARDO Administration Pravastatin Sodium 40 mg 04/30/20 09:00 04/30/20 07:30 Pravastatin Sodium 40 Mg Tab PO 40 mg DAILY@0900 LEONARDO Administration Sodium Chloride 10 ml 04/29/20 21:00 04/30/20 07:31 Sodium Chloride 0.9% Flush 10 Ml Syringe IV 10 ml BID LEONARDO Administration Spironolactone 25 mg 05/01/20 09:00 Spironolactone 25 Mg Tab PO DAILY LEONARDO Intake and Output 04/29/20 04/30/20 04/30/20 22:59 06:59 14:59 Intake Total 220 Balance 220 Intake: Oral 220 Other: Voiding Method Diaper # Voids 3 Weight 68.039 kg 04/29/20 17:55 04/29/20 17:55
--- NOTE | 2020-04-30 13:11 | US ---
EXAMINATION TYPE: US chest DATE OF EXAM: 04/30/2020 COMPARISON: Chest x-ray 04/29/2020 CLINICAL HISTORY: Pleural effusion on the right. TECHNIQUE: Targeted ultrasound of the posterior lower EXAM MEASUREMENTS: Right Pleural Effusion pocket size: 0.6 cm Left Pleural Effusion pocket size: 0.0 cm Right side not marked for possible thoracentesis outside the dept. Left side not marked for possible thoracentesis outside the dept. Pulmonologists are able to review the images in the patient?s EMR. IMPRESSIONS: Minimal right effusion, no evident left effusion
[2020-04-30 13:45] VITALS: BMI 29.2
--- NOTE | 2020-04-30 15:19 | P.PN ---
<Wil Grande - Last Filed: 04/30/20 14:52> Subjective Progress Note Date: 04/30/20 Principal diagnosis: Acute exacerbation of Chronic Diastolic Heart Failure with EF 55-60% Hospital course: Patient is an 89-year-old female with a past medical history including CAD with previous stent placement to RCA, chronic diastolic heart failure, chronic persistent atrial fibrillation on anticoagulation with Eliquis, pacemaker, hypertension, and hyperlipidemia. She presented to [facility] with a chief complaint of shortness of breath and lower extremity edema beginning 2 days prior and progressively worsening. Patient was found to have an elevated proBNP of 4250. X-ray revealed a right pleural effusion and right l ower lobe pneumonia that is the same or slightly worsened from previous exam accompanied by mild heart failure. Ultrasound of chest revealed a minimal right effusion of 0.6 cm with no evidence of left effusion. EKG revealed a ventricular paced rhythm at 61 bpm. Patient admitted under our services for acute exacerbation of chronic diastolic heart failure. She is being treated with Lasix 40 mg IVP every 12 hours along with Aldactone 25 mg daily. Cardiology consulted and following. Plan of care: Acute exacerbation of chronic diastolic heart failure -ProBNP 4250. -EKG revealing a ventricular paced rhythm at 61 bpm. -Echocardiogram completed on 09/16/19 revealed a preserved EF of 55-60% with a severely dilated left atrium, mild aortic stenosis, and moderate pulmonary hypertension. -Cardiology consulted, appreciate recommendations. -Telemetry monitoring -Daily weights -Close monitoring of I's and O's -Cardiac diet -Lasix 40 mg IVP every 12 hours and Aldactone 25 mg -Continued close monitoring of electrolytes while diuresing. Hypokalemia -Potassium upon admission was 3.3. This was replaced with 40 mEq of K Dur. -We will continue to monitor with repeat a.m. labs. Chronic persistent atrial fibrillation on anticoagulation Eliquis -Continue anticoagulation with Eliquis. CAD with previous stenting to RCA and pacemaker placement -We will cardiac meds including Eliquis, aspirin, carvedilol, hydralazine HCL, isosorbide mononitrate ER, pravastatin, Lasix, and Aldactone. -Heart healthy diet Hypertension -Monitor vital signs and continue daily medication regimen with carvedilol, hydralazine HCL, isosorbide mononitrate. Hyperlipidemia Continue daily medication regimen with pravastatin 40 mg nightly. -Heart healthy diet CODE STATUS: Full Code DVT prophylaxis: Jose Discussed with: Patient, case management and RN. Anticipated discharge date: 1-[address]: home A total of 45 minutes was spent on the care of this complex patient more than 50% of the time was spent in counseling and care coordination. Objective - Vital Signs Vital signs: Vital Signs Temp 98.3 F 04/30/20 13:53 Pulse 60 04/30/20 13:53 Resp 18 04/30/20 13:53 BP 130/62 04/30/20 13:53 Pulse Ox 98 04/30/20 13:53 Intake & Output 04/29/20 04/30/20 04/30/20 18:59 06:59 18:59 Intake Total 220 Balance 220 Weight 68.039 kg 68.039 kg 68.039 kg Intake: Oral 220 Other: Voiding Method Diaper Diaper # Voids 3 - Labs CBC & Chem 7: 04/29/20 17:55 04/29/20 17:55 Labs: Abnormal Lab Results - Last 24 Hours (Table) 04/29/20 04/29/20 Range/Units 17:55 17:55 Hgb 10.7 L (11.4-16.0) gm/dL Hct 33.0 L (34.0-46.0) % RDW 17.0 H (11.5-15.5) % Lymphocytes # 0.7 L (1.0-4.8) k/uL Potassium 3.3 L (3.5-5.1) mmol/L Chloride 95 L (98-107) mmol/L Carbon Dioxide 36 H (22-30) mmol/L BUN 38 H (7-17) mg/dL Creatinine 1.67 H (0.52-1.04) mg/dL Glucose 111 H (74-99) mg/dL Alkaline Phosphatase 131 H (38-126) U/L C-Reactive Protein 34.6 H (<10.0) mg/L <Michelle Woodall - Last Filed: 04/30/20 16:21> Subjective Patient seen and examined independently. Patient was also seen by Wil Grande NP and case was discussed. I am in agreement with discharge diagnosis, hospital course, and physical exam as written above and amended below. She reports being tired, fatigued and stressed at home due to caring for her daughter and decreased strength with need for repeat hospitalization. She fell 2 weeks ago and struck her head. SHe initially had a bump on her head, she did not loose consciousness. She conitnues to have pack pain and right >Left shoulder pain. General: non toxic, no distress, appears at stated age Cardiovascular: S1S2 reg, no murmur, positive posterior tibial pulse bilateral, Lungs: Crackles bilateral, no accessory muscle use Abdominal: soft, nontender to palpation, no guarding, no appreciable organomegaly Ext: no gross muscle atrophy, 2+ edema, no contractures Neuro: CN II-XI grossly intact, no focal neuro deficits Psych: Alert, oriented, appropriate affect Patient states that she is having difficulty at home secondary to trying to take care of her daughter with Lewy Body dementia Back pain due to fall 2 weeks ago - Pain control - Check XR Lumbar and Thorasic spine - Fall precautions - PT/OT Right shoulder pain - check x-ray Objective - Vital Signs Vital signs: Vital Signs Temp 98.3 F 04/30/20 13:53 Pulse 60 04/30/20 13:53 Resp 18 04/30/20 13:53 BP 130/62 04/30/20 13:53 Pulse Ox 98 04/30/20 13:53 Intake & Output 04/29/20 04/30/20 04/30/20 18:59 06:59 18:59 Intake Total 220 Balance 220 Weight 68.039 kg 68.039 kg 68.039 kg Intake: Oral 220 Other: Voiding Method Diaper Diaper # Voids 3 - Labs CBC & Chem 7: 04/29/20 17:55 04/29/20 17:55 Labs: Abnormal Lab Results - Last 24 Hours (Table) 04/29/20 04/29/20 Range/Units 17:55 17:55 Hgb 10.7 L (11.4-16.0) gm/dL Hct 33.0 L (34.0-46.0) % RDW 17.0 H (11.5-15.5) % Lymphocytes # 0.7 L (1.0-4.8) k/uL Potassium 3.3 L (3.5-5.1) mmol/L Chloride 95 L (98-107) mmol/L Carbon Dioxide 36 H (22-30) mmol/L BUN 38 H (7-17) mg/dL Creatinine 1.67 H (0.52-1.04) mg/dL Glucose 111 H (74-99) mg/dL Alkaline Phosphatase 131 H (38-126) U/L C-Reactive Protein 34.6 H (<10.0) mg/L
[2020-04-30] MEDS: ALBUTEROL HFA INHALER INHALATION PRN (15:44)
--- NOTE | 2020-04-30 16:16 | XR ---
Right shoulder HISTORY: Trauma and pain 3 views the right shoulder on 4 images Bone mineralization is reduced. Arthropathy is present at the acromioclavicular joint. Alignment is m aintained. Glenohumeral joint is intact. IMPRESSION: No fracture or dislocation is evident.
--- NOTE | 2020-04-30 16:23 | XR ---
Thoracic spine and lumbar spine HISTORY: Trauma, pain 3 views of the thoracic spine and 3 views the lumbar spine submitted. Comparison to prior lumbar spin e 09/17/2019 Bone mineralization is reduced which may limit sensitivity. L2 shows a compression fracture with loss of height centrally of approximately 50%. No evident retropulsion. Relative kyphosis is centered at the level. Multilevel spondylosis is present. Multilevel loss of disc height. Thoracic vertebral bodi es show preserved height and alignment. Anterolisthesis grade 1 C3-4 and C4-5 noted in the cervical s pine, degenerative disc changes are present in the cervical spine additionally. There is mild spinal curvature. IMPRESSION: The L2 compression fracture is an interval finding. Low bone mineralization could limit s ensitivity, consider alternate imaging such as bone scan or MRI, CT for additional evaluation. Degene rative disc disease and additional findings above.
[2020-04-30] MEDS ORDERED: ASPIRIN 325 MG TAB PO SCH (19:49)
[2020-04-30] MEDS ORDERED: AZITHROMYCIN 500 MG in SODIUM CHLORIDE 0.9% 250 ML IVPB SCH (20:00)
[2020-04-30] MEDS: ALPRAZolam 0.5 MG TAB PO SCH (21:53)
[2020-05-01] MEDS: ACETAMINOPHEN TAB 325 MG TAB PO PRN ×2 (01:33→14:40)
[2020-05-01] MEDS: ALBUTEROL HFA INHALER INHALATION PRN ×2 (02:54→15:52)
[2020-05-01] MEDS: LEVOTHYROXINE 112 MCG TAB PO SCH (05:03)
[2020-05-01] MEDS: ALBUTEROL HFA INHALER INHALATION SCH ×3 (07:34→19:50)
[2020-05-01] MEDS: PANTOPRAZOLE 40 MG TABLET PO SCH (07:47)
[2020-05-01] MEDS: hydrALAZINE HCL 25 MG TAB PO SCH ×3 (07:47→20:03)
[2020-05-01] MEDS: APIXABAN 2.5 MG TABLET PO SCH ×2 (07:48→20:03)
[2020-05-01] MEDS: ISOSORBIDE MONONITRATE ER 30 MG TAB.ER.24H PO SCH (07:48)
[2020-05-01] MEDS: FUROSEMIDE 10 MG/ML 4 ML VIAL IV SCH ×2 (07:48→20:02)
[2020-05-01] MEDS: PRAVASTATIN SODIUM 40 MG TAB PO SCH (07:48)
[2020-05-01] MEDS: carvediloL 3.125 MG TAB PO SCH ×2 (07:48→20:03)
[2020-05-01] MEDS: SPIRONOLACTONE 25 MG TAB PO SCH (07:48)
--- NOTE | 2020-05-01 09:05 | P.CNOR ---
History of Present Illness - [facility] Consult date: 05/01/20 Consult reason: fracture, low back pain History of present illness: 89-year-old female who presented with exacerbation of COPD CHF shortness of breath and chest pain complained also of a fall from standing with low back pain as well as neck pain. The patient was evaluated and found to have tenderness over the posterior midline portion of her lumbar spine and so x-rays were taken. She is found to have an L2 compression fracture which is likely acute on chronic. Patient denies any neurologic symptoms states that she is overall this kind of weak. She has been seen by her primary care doctor and treated by them thoroughly. She denies any perineal numbness or tingling denies any bowel bladder issues denies any weakness other than somewhat generalized. No focal deficits. She states cough and shortness of breath which seemed to be getting better. Review of Systems 14 points review of systems completed and as stated in HPI, all other systems reviewed are negative. Respiratory: Reports cough, Reports dyspnea Past Medical History Past Medical History: Atrial Fibrillation, Coronary Artery Disease (CAD), Heart Failure, GERD/Reflux, Hyperlipidemia, Hypertension, Respiratory Disorder, Thyr oid Disorder Additional Past Medical History / Comment(s): Coronary artery disease, chronic atrial fibrillation, hypertension, hyperlipidemia, chronic stage II kidney disease with a baseline creatinine of around 1.5, hypothyroidism, glaucoma, History of Any Multi-Drug Resistant Organisms: None Reported Past Surgical History: Cholecystectomy, Heart Catheterization With Stent, Hysterectomy, Orthopedic Surgery, Tonsillectomy Additional Past Surgical History / Comment(s): right knee replacement, carpal tunnel release, "thyroidectomy", fco feet -heel spurs, cataracts-lens implants. pacemarker September 2019 Past Anesthesia/Blood Transfusion Reactions: No Reported Reaction Date of Last Stent Placement:: 2013 Past Psychological History: No Psychological Hx Reported Smoking Status: Former smoker Past Alcohol Use History: None Reported Past Drug Use History: None Reported - Past Family History Daughter(s) Additional Family Medical History / Comment(s): short term memory loss Father Additional Family Medical History / Comment(s): denies family history of cancer or DM in her mother Medications and Allergies Home Medications Medication Instructions Recorded Confirmed Type ALPRAZolam [Xanax] 0.5 mg PO HS@209912/03/17 04/29/20 History Ergocalciferol (Vitamin D2) 50,000 unit PO SA@2100 12/03/17 04/29/20 History [Vitamin D2] Levothyroxine Sodium 112 mcg PO DAILY@0600 12/03/17 04/29/20 History carvediloL [Coreg] 3.125 mg PO BID@0900,2100 09/16/19 04/29/20 History Acetaminophen [Tylenol Extra 500 - 1,000 mg PO Q8H PRN 10/11/19 04/29/20 History Strength] Apixaban [Eliquis] 2.5 mg PO BID@0900,209903/05/20 04/29/20 History Furosemide [Lasix] 40 mg PO DAILY@1500 03/05/20 04/29/20 History Furosemide [Lasix] 80 mg PO DAILY@0903/05/20 04/29/20 History Ipratropium-Albuterol Nebulize 3 ml INHALATION RT-Q4H 03/05/20 04/29/20 History [Duoneb 0.5 mg-3 mg/3 ml Soln] Pantoprazole [Protonix] 40 mg PO DAILY@0903/05/20 04/29/20 History Pravastatin Sodium [Pravachol] 40 mg PO DAILY@0903/05/20 04/29/20 History hydrALAZINE HCL [Apresoline] 25 mg PO TID@0900,1300,209903/05/20 04/29/20 History Isosorbide Mononitrate ER [Imdur] 30 mg PO DAILY 04/29/20 04/29/20 History Potassium Chloride ER [K-Dur 10] 10 meq PO DAILY@0904/29/20 04/29/20 History Spironolactone [Aldactone] 25 mg PO HS 04/29/20 04/29/20 History Allergies Allergy/AdvReac Type Severity Reaction Status Date / Time brimonidine [From Simbrinza] Allergy Unknown Verified 04/29/20 19:50 brinzolamide [From Simbrinza] Allergy Unknown Verified 04/29/20 19:50 tramadol AdvReac Nausea & Verified 04/29/20 19:50 Vomiting Physical Examination Osteopathic Statement: *. No significant issues noted on an osteopathic st ructural exam other than those noted in the History and Physical/Consult. PHYSICAL EXAMINATION: Vitals: Stable at this time General: Awake, alert, appropriate for age, in no acute distress. HEENT: No unusual neck masses around region of lateral neck triangle, thyroid, supraclavicular groove. Extremities: Skin warm and dry without no acute lesions, coloration, temperature, skin intact, no tenderness or erythema. Integument: Hairy patches: Absent Dorsal skin dimples: Absent Cafe au lait spots: Absent Surgical incisions: None Palpation: Please see Pain drawing on Intake sheet for further detail. (Tenderness = T, Nontender = NT, Swelling = S, Ecchymosis = E) Findings on Midline and paraspinal palpation and percussion: Cervical: NT Thoracic: NT Lumbar: Minor tenderness to palpation over the midline of the thoracolumbar junction as well as the lower lumbar spine. No tennis palpation of the cervical spine paraspinal musculature or step-offs or deformities noted. She is kyphotic in nature. Sacral: NT Special findings: None POSTURAL and MUSCULO-SKELETAL EVALUATION: Coronal Balance: Neutral Recumbent testing: Patient can lay flat on back Sagittal Balance: Positive Shoulder Profile: Level Pelvic Girdle: Level Neck ROM: Somewhat painful range of motion and restricted secondary to her debilitated state no acute findings Lumbar ROM: Limited currently as she does not want to stand Shoulder ROM: Symmetric in abduction, ER/IR Hip ROM: Symmetric in abduction, adduction, ER/IR Knee ROM: Symmetric and intact in Flexion / extension Hands: Normal appearing structure L and R Feet: Normal appearing structure L and R VASCULAR STATUS : Wrist Pulses: 2/4 bilateral radial and ulnar Pedal Pulses: 2/4 bilateral DP and PT Color: Normal Edema: None NEUROLOGIC EXAMINATION: Mental Status: Awake and alert, fully oriented, with normal attention, concentration and memory, and fluent, appropriate speech. Cranial Nerves: I: Olfactory not tested. II: Visual acuity normal, no visual field deficit noted with confrontation. III,IV: Normal pupillary reflexes & intact extraocular movements without nystagmus. V,: Intact symmetrical facial sensation. VII: Intact symmetrical facial motor movement VIII: Hearing intact. IX,X: Intact gag, swallow, & normal voice. XI: Sternocleidomastoid, trapezius function intact. XII: Tongue midline with normal movements. Special Tests: L'hermitte's Sign: Absent Spurling'Sign: Absent Bilateral Cubital percussion test: Absent Bilateral Larissa-Tinel sign - Carpal region: Absent Bilateral Straight Leg Raising: Absent Bilateral Motor Exam (0-5/5, N/T) STRENGTH patient has generalized weakness throughout however there are no focal deficits at this time. Her 5/5 is more saroj to a 4/5 relative to her age and debility. UPPER EXTREMITY Shoulder Abd (Not part of BRANDO Motor score): RIGHT 5 LEFT 5 Elbow Flexors: RIGHT 5 LEFT 5 Elbow Extensor: RIGHT 5 LEFT 5 Wrrist Dorsiflexors: RIGHT 5 LEFT 5 Finger Abductor: RIGHT 5 LEFT 5 Clinic Clerk: RIGHT 5 LEFT 5 LOWER EXTREMITY Hip Flexor (Not part of BRANDO Motor Score): RIGHT 5 LEFT 5 Knee Flexor: RIGHT 5 LEFT 5 Knee Extensor: RIGHT 5 LEFT 5 Ankle Dorsiflexion: RIGHT 5 LEFT 5 Ankle Plantarflexion: RIGHT 5 LEFT 5 EHL: RIGHT 5 LEFT 5 FHL: RIGHT 5 LEFT 5 BRANDO Motor Score: RIGHT 50/50 LEFT 50/50 REFLEXES Biecp: RIGHT 2 LEFT 2 Tricep: RIGHT 2 LEFT 2 Brachioradialis: RIGHT 2 LEFT 2 Patellar: RIGHT 2 LEFT 2 Achilles: RIGHT 2 LEFT 2 Pathological Reflexes Hollis's: RIGHT Absent LEFT Absent Babinski: RIGHT Absent LEFT Absent Clonus: RIGHT None LEFT None SENSORY Joint Position: Intact bilaterally Vibration Intact bilaterally Pain and LT sense Intact C5-T1 and L2-S1 Dermatomal deficit None Gait and Functional Evaluation: Ambulatory aids: Walker Romberg's test: Intact bilaterally. Toe walk/ heel walk / heel-toe walk intact while maintaining satisfactory bal ance. Squatting and straightening out without assistance to a minimum of 60 degrees knee flexion Single leg stance: intact/ Trendelenburg sign negative bilaterally Hand and finger dexterity intact bilaterally. Disdiadochokinesis examination negative bilaterally. Results XRAYS: Shoulder: Advanced osteoarthritic changes within the right glenohumeral joint. No acute fracture dislocation is noted. Thoracic: Advanced spondylotic changes throughout the thoracic spine with essentially ankylosis throughout. No acute fracture or dislocation noted. Alignment is maintained and sagittal and coronal planes. Severe osteopenia osteoporosis noted Lumbar: Advanced spondylotic changes throughout the lumbar spine with advanced osteopenia and osteoporosis noted. There is an L2 compression fracture which is approximately 50% loss of height of the L2 vertebral body this appears chronic in nature. There is a likely small retropulse fragment which would be better visualized on the computed tomography scan likely. Overall alignment is fairly well maintained there is a minimal amount of kyphosis in this area. This again acute. 4 chronic in nature. Severe aortic calcific changes facet arthrosis noted throughout as well - Labs Labs: Microbiology - Last 24 Hours (Table) 04/29/20 17:55 Blood Culture - Preliminary Blood No Growth after 24 hours 04/29/20 17:55 Blood Culture - Preliminary Blood No Growth after 24 hours H & H 04/29/20 Range/Units 17:55 Hgb 10.7 L (11.4-16.0) gm/dL Hct 33.0 L (34.0-46.0) % Coagulation 04/29/20 Range/Units 17:55 INR 1.1 (<1.2) Result Diagrams: 04/29/20 17:55 04/29/20 17:55 Assessment and Plan Assessment: 89-year-old female with shortness of breath and low back pain 1. L2 acute on chronic compression fracture 50% loss vertebral body height likely healing, no neurologic deficit 2. Neck pain status post fall from standing 3. Right shoulder severe osteoarthritis with pain Plan: -Appreciate consult. -Continue medical management -X-rays of the cervical spine ordered -Pain control: As needed -Aggressive ambulation protocol. OOB with all meals. OOB or in chair 4-5x daily. -PT/OT -TEDs, SCDs, mechanical ppx. OK for heparin today. Early ambulation is best. -GI ppx. -Could consider computed tomography scan of the lumbar spine if intervention is desired by patient and family, however at this time she states she does not want back surgery and so we will forego this for now. -Trend labs. -Dispo: Per primary team. Follow-up with orthopedics in 2 weeks
[2020-05-01 09:29] LABS: HCT 30.4 % (37.2-46.3); HGB 9.1 g/dL (12.0-15.0); MCH 27.1 pg (27.0-32.0); MCHC 29.9 g/dL (32.0-37.0); MCV 90.5 fL (80.0-97.0); Mean Platelet Volume 10.1 fL (9.5-12.2); Platelet Count 205 X 10*3/uL (140-440); RBC 3.36 X 10*6/uL (4.10-5.20); RDW 15.6 % (11.5-14.5); WBC 4.51 X 10*3/uL (4.50-10.00)
[2020-05-01 09:58] LABS: African American GFR (CKD) 35.7 (60.0-200.0); Anion Gap 8.9 mmol/L (4.00-12.00); BUN/Creat Ratio 28.67 Ratio (12.00-20.00); Calcium 8.5 mg/dL (8.7-10.3); Carbon Dioxide 31.1 mmol/L (21.6-31.8); Magnesium 2.2 mg/dL (1.5-2.4); Non-African American GFR(CKD) 30.8 (60.0-200.0)
--- NOTE | 2020-05-01 10:45 | P.PN ---
<Wil Grande - Last Filed: 05/01/20 15:02> Subjective Principal diagnosis: Acute exacerbation of Chronic Diastolic Heart Failure with EF 55-60% Hospital course: Patient is an 89-year-old female with a past medical history including CAD with previous stent placement to RCA, chronic diastolic heart failure, chronic persistent atrial fibrillation on anticoagulation with Eliquis, pacemaker, hypertension, and hyperlipidemia. She presented to [facility] with a chief complaint of shortness of breath and lower extremity edema beginning 2 days prior and progressively worsening. Patient was found to have an elevated proBNP of 4250. X-ray revealed a right pleural effusion and right lower lobe pneumonia that is the same or slightly worsened from previous exam accompanied by mild heart failure. Ultrasound of chest revealed a minimal right effusion of 0.6 cm with no evidence of left effusion. EKG revealed a ventricular paced rhythm at 61 bpm. Patient admitted under our services for acute exacerbation of chronic diastolic heart failure. She is being treated with Lasix 40 mg IVP every 12 hours along with Aldactone 25 mg daily. C ardiology consulted and following. Physical exam: Patient was seen and fully evaluated at the bedside. Yesterday afternoon she was also seen by Dr. Woodall and informed her of some back and shoulder pain she had been experiencing since having a mechanical fall 2 weeks ago. 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 Orthopedic consult was placed and patient to be evaluated by PT/OT. Upon assessment this morning, she was sitting up in the chair and reports having increased shortness of breath after ambulating this morning and remains on 2L O2 via NC. She states she also feels very weak and tired today when compared to yesterday. She denies having any headache, lightheadedness, dizziness, changes in vision or hearing, tinnitus, chest pain or palpitations, or experiencing any pain/swelling/weakness/numbness in extremities. She continues to have +1 pitting edema in BLE and lungs continue to be diminished at bases with diffuse soft crackles. We will continue with diuresis using Lasix 40 mg every 12 hours, discussed with RN importance of closer monitoring of urinary output. We will also obtain a repeat weight on patient as documented weight shows a weight gain of 2.36 kg over the past 24 hours. BMP and magnesium pending, will follow up and replace any electrolytes as needed. CBC revealed a decrease in hemoglobin from 10.7 down to 9.1 over the past 36 hours. Order placed for a repeat CBC this afternoon. General: non toxic, no acute distress, appears at stated age Derm: warm, dry Head: atraumatic, normocephalic, symmetric Eyes: No lid lag, anicteric sclera Mouth: no lip lesion, mucus membranes moist Cardiovascular: S1S2 reg, no murmur, positive posterior tibial pulses bilaterally, pacemaker left anterior chest. Lungs: Respirations even, regular, and unlabored on 2 L O2 via nasal cannula, no accessory muscle usage. Lungs sounds continue to be diminished at bases with diffuse soft crackles. Abdominal: soft, nontender to palpation, no guarding, no appreciable organomegaly Ext: no gross muscle atrophy, no contractures, 1+ bilateral lower extremity pitting edema with venous discoloration Neuro: Speech clear, no focal neuro deficits Psych: Alert, oriented, appropriate affect Plan of care: Acute exacerbation of chronic diastolic heart failure -ProBNP 4250. -EKG revealing a ventricular paced rhythm at 61 bpm. -Echocardiogram completed on 09/16/19 revealed a preserved EF of 55-60% with a severely dilated left atrium, mild aortic stenosis, and moderate pulmonary hypertension. -Cardiology consulted, appreciate recommendations. -Telemetry monitoring -Daily weights to continue, documented weight gain of 2.36 kg over the past 24 hours. -Close monitoring of I's and O's -Cardiac diet -Lasix 40 mg IVP every 12 hours and Aldactone 25 mg -Continued close monitoring of electrolytes while diuresing. -Follow up chest x-ray to be completed today. L2 Compression Fracture -Yesterday afternoon, patient complained of back pain resulting from a mechanical fall that occurred 2 weeks ago. 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 -Orthopedic consult was placed, appreciate further recommendations -Patient to be evaluated by PT/OT. -Pain management and symptomatic care. Severe osteoarthritis of right shoulder -X-ray right shoulder completed revealing severe osteoarthritis of right shoulder as evidenced by reduced bone mineralization and presence of arthropathy at the acromial clavicular joint with no evidence of acute fracture or dislocation. -Orthopedic consult was placed. -Patient to be evaluated by PT/OT. -Pain management and symptomatic care. Hypokalemia -Potassium upon admission was 3.3. This was replaced with 40 mEq of K Dur. -We will continue to monitor electrolytes and replace as needed. Chronic persistent atrial fibrillation on anticoagulation Eliquis -Continue anticoagulation with Eliquis. CAD with previous stenting to RCA and pacemaker placement -We will continue cardiac meds including Eliquis, aspirin, carvedilol, hydralazine HCL, isosorbide mononitrate ER, pravastatin, Lasix, and Aldactone. -Heart healthy diet Hypertension -Monitor vital signs and continue daily medication regimen with carvedilol, hydralazine HCL, isosorbide mononitrate. Hyperlipidemia Continue daily medication regimen with pravastatin 40 mg nightly. -Heart healthy diet CODE STATUS: Full Code DVT prophylaxis: Eliquis Discussed with: Patient, case management and RN. Anticipated discharge date: 1-[address]: home A total of 45 minutes was spent on the care of this complex patient more than 50% of the time was spent in counseling and care coordination. Objective - Vital Signs Vital signs: Vital Signs Temp 96.8 F L 05/01/20 07:31 Pulse 63 05/01/20 07:31 Resp 16 05/01/20 07:31 BP 148/74 05/01/20 07:31 Pulse Ox 98 05/01/20 07:31 Intake & Output 04/30/20 05/01/20 05/01/20 18:59 06:59 18:59 Intake Total 250 Balance 250 Weight 68.039 kg 70.4 kg Intake: Oral 250 Other: Voiding Method Diaper Diaper # Voids 2 # Bowel Movements 2 - Labs CBC & Chem 7: 05/01/20 05:34 04/29/20 17:55 Labs: Abnormal Lab Results - Last 24 Hours (Table) 05/01/20 Range/Units 05:34 RBC 3.36 L (4.10-5.20) X 10*6/uL Hgb 9.1 L (12.0-15.0) g/dL Hct 30.4 L (37.2-46.3) % MCHC 29.9 L (32.0-37.0) g/dL RDW 15.6 H (11.5-14.5) % Microbiology - Last 24 Hours (Table) 04/29/20 17:55 Blood Culture - Preliminary Blood No Growth after 24 hours 04/29/20 17:55 Blood Culture - Preliminary Blood No Growth after 24 hours <TalishaMichelle - Last Filed: 05/01/20 15:34> Subjective Progress Note Date: 05/01/20 Patient seen and examined independently. Patient was also seen by Wil Grande NP and case was discussed. I am in agreement with subjective, physical exam, assessment and plan as written above and amended below. Patient seen and examined at bedside. She reports that she did not sleep well last night she was having difficulty breathing when lying down flat. She is feeling slightly short of breath this morning. General: non toxic, no distress, appears at stated age Derm: warm, dry Head: atraumatic, normocephalic, symmetric Eyes: EOMI, no lid lag, anicteric sclera Mouth: no lip lesion, mucus membranes moist Cardiovascular: S1S2 reg, no murmur, positive posterior tibial pulse bilateral, Lungs: Decreased breath sounds, no rhonchi, no rales , no accessory muscle use Abdominal: soft, nontender to palpation, no guarding, no appreciable organomegaly Ext: no gross muscle atrophy, 2+ edema, no contractures Neuro: CN II-XI grossly intact, no focal neuro deficits Psych: Alert, oriented, appropriate affect Anemia, acute on chronic -Ferritin 100.1 suggestive of possible iron deficiency anemia. -Follow CBC -No bloody bowel movements per nursing inpatient Objective - Vital Signs Vital signs: Vital Signs Temp 96.8 F L 05/01/20 07:31 Pulse 63 05/01/20 08:00 Resp 16 05/01/20 08:00 BP 148/74 05/01/20 07:31 Pulse Ox 98 05/01/20 07:31 Intake & Output 04/30/20 05/01/20 05/01/20 18:59 06:59 18:59 Intake Total 250 520 Balance 250 520 Weight 68.039 kg 70.4 kg Intake: Oral 250 520 Other: Voiding Method Diaper Diaper Diaper # Voids 2 # Bowel Movements 2 - Labs CBC & Chem 7: 05/01/20 05:34 05/01/20 05:34 Labs: Abnormal Lab Results - Last 24 Hours (Table) 05/01/20 05/01/20 Range/Units 05:34 05:34 RBC 3.36 L (4.10-5.20) X 10*6/uL Hgb 9.1 L (12.0-15.0) g/dL Hct 30.4 L (37.2-46.3) % MCHC 29.9 L (32.0-37.0) g/dL RDW 15.6 H (11.5-14.5) % BUN 43.0 H (9.0-27.0) mg/dL Est GFR (CKD-EPI)AfAm 35.7 L (60.0-200.0) Est GFR (CKD-EPI)NonAf 30.8 L (60.0-200.0) BUN/Creatinine Ratio 28.67 H (12.00-20.00) Ratio Calcium 8.5 L (8.7-10.3) mg/dL Microbiology - Last 24 Hours (Table) 04/29/20 17:55 Blood Culture - Preliminary Blood No Growth after 24 hours 04/29/20 17:55 Blood Culture - Preliminary Blood No Growth after 24 hours
--- NOTE | 2020-05-01 10:53 | XR ---
Cervical spine with flexion and extension views HISTORY: Neck pain 7 views of cervical spine No comparisons There is multilevel extensive facet arthropathy change. Bone mineralization is reduced. Cervical vert ebral bodies show preserved height. Anterolisthesis grade 1 C2-3, C3-4, no significant change on flex ion and extension views at C3-4, neutral and flexion view at C2-3 shows near normal alignment. Multil evel spondylosis is present, loss of disc height present at C4-5, C5-6, C6-7, lower cervical spine no t well seen. Multilevel foraminal encroachment noted on oblique views. Pacemaker generator incidental ly noted in the left pectoral region, lead in the innominate vein region. There are overlying artifac ts. IMPRESSION: Osteopenia. Listhesis as described C2-3, C3-4. Extensive facet arthropathy change.
--- NOTE | 2020-05-01 11:27 | XR ---
EXAMINATION TYPE: XR chest 1V portable DATE OF EXAM: 05/01/2020 COMPARISON: Chest x-ray 04/29/2020 HISTORY: Follow-up examination, abnormal chest x-ray TECHNIQUE: Single frontal view of the chest is obtained. FINDINGS: Findings are similar. Pacemaker is unchanged. Abnormal densities present right lung base, there is obscured right hemidiaphragm. Blunting of the right gastric angle is noted. Cardiac mediasti nal silhouette is likely stable. Aorta is dense. Interstitium is increased. No evident pneumothorax. IMPRESSION: Correlate for congestive heart failure, pneumonia is not excluded, there is right pleura l effusion
[2020-05-01 20:09] LABS: Basophils # (A) 0.02 X 10*3/uL (0.00-0.10); Basophils % (A) 0.5 %; Eosinophils # (A) 0.19 X 10*3/uL (0.04-0.35); Eosinophils % (A) 4.4 %; HCT 31.5 % (37.2-46.3); HGB 9.5 g/dL (12.0-15.0); Lymphocytes # (A) 0.48 X 10*3/uL (0.90-5.00); Lymphocytes % (A) 11.2 %; MCH 27.1 pg (27.0-32.0); MCHC 30.2 g/dL (32.0-37.0); Mean Platelet Volume 10.6 fL (9.5-12.2); Neutrophils # (A) 3.27 X 10*3/uL (1.80-7.70); Neutrophils % (A) 76.7 %; Platelet Count 212 X 10*3/uL (140-440); RDW 15.4 % (11.5-14.5); WBC 4.27 X 10*3/uL (4.50-10.00)
[2020-05-01] MEDS: ALPRAZolam 0.5 MG TAB PO SCH (21:59)
[2020-05-02] MEDS: ALBUTEROL HFA INHALER INHALATION PRN ×2 (01:38→15:21)
[2020-05-02] MEDS: LEVOTHYROXINE 112 MCG TAB PO SCH ×2 (05:30→06:07)
[2020-05-02] MEDS: ALBUTEROL HFA INHALER INHALATION SCH ×3 (07:28→19:15)
[2020-05-02] MEDS: ISOSORBIDE MONONITRATE ER 30 MG TAB.ER.24H PO SCH (08:23)
[2020-05-02] MEDS: APIXABAN 2.5 MG TABLET PO SCH ×2 (08:23→21:14)
[2020-05-02] MEDS: FUROSEMIDE 10 MG/ML 4 ML VIAL IV SCH (08:23)
[2020-05-02] MEDS: PRAVASTATIN SODIUM 40 MG TAB PO SCH (08:23)
[2020-05-02] MEDS: hydrALAZINE HCL 25 MG TAB PO SCH ×3 (08:23→21:14)
[2020-05-02] MEDS: carvediloL 3.125 MG TAB PO SCH ×2 (08:24→21:14)
[2020-05-02] MEDS: SPIRONOLACTONE 25 MG TAB PO SCH (08:24)
[2020-05-02] MEDS: PANTOPRAZOLE 40 MG TABLET PO SCH (08:24)
[2020-05-02 10:02] LABS: Glucose 119 mg/dL (74-99)
[2020-05-02 10:51] LABS: African American GFR (CKD) 35 (>60 ml/min/1.73 sqM); Anion Gap 7 mmol/L; Blood Urea Nitrogen 50 mg/dL (7-17); Calcium 8.6 mg/dL (8.4-10.2); Carbon Dioxide 37 mmol/L (22-30); Chloride 97 mmol/L (98-107); Magnesium 2.3 mg/dL (1.6-2.3); Non-African American GFR(CKD) 30 (>60 ml/min/1.73 sqM); Potassium 4.3 mmol/L (3.5-5.1); Sodium 141 mmol/L (137-145)
--- NOTE | 2020-05-02 11:21 | P.PN ---
<Wil Grande - Last Filed: 05/02/20 10:58> Subjective Progress Note Date: 05/02/20 Principal diagnosis: Acute exacerbation of Chronic Diastolic Heart Failure with EF 55-60% Hospital course: Patient is an 89-year-old female with a past medical history including CAD with previous stent placement to RCA, chronic diastolic heart failure, chronic persistent atrial fibrillation on anticoagulation with Eliquis, pacemaker, hypertension, and hyperlipidemia. She presented to [facility] with a chief complaint of shortness of breath and lower extremity edema beginning 2 days prior and progressively worsening. Patient was found to have an elevated proBNP of 4250. X-ray revealed a right pleural effusion and right lower lobe pneumonia that is the same or slightly worsened from previous exam accompanied by mild heart failure. Follow up chest x-ray completed 05/01/20 revealed findings similar when compared to x-ray obtained on 04/29/20 correlating for mild CHF with a small right pleural effusion. Ultrasound of chest revealed a minimal right effusion of 0.6 cm with no evidence of left effusion. EKG revealed a ventricular paced rhythm at 61 bpm. Patient admitted under our services for acute exacerbation of chronic diastolic heart failure. She is being treated with Lasix 40 mg IVP every 12 hours along with Aldactone 25 mg daily. Cardiology consulted and following. Physical exam: Patient was seen and fully evaluated at the bedside. Patient was sitting up in chair lower extremities elevated. She reports again feeling very tired and weak this morning along with continued shortness of breath. She remains on 2 L O2 with SpO2 of 98%. Vital signs have been unremarkable. She has been receiving Aldactone 25 mg daily and Lasix 40 mg IVP every 12 hours. Patient has been urinating in a brief along with bedside commode resulting in an inaccurate measurement of output, however RN and patient reports urinary frequency. Electrolytes reviewed with no electrolyte abnormalities. Renal function has remained at or above baseline levels since admission. CBC has been stable with repeat hemoglobin of 9.5 up from 9.1 yesterday morning. We will decrease Lasix to 40 mg IVP once daily and plan for likely discharge home with home care tomorrow. Physical therapy has evaluated patient and recommended subacute rehab, however patient declining subacute rehab at this time and insistent that she wants to return home. Home care services were set up by case management with [facility]. Social work met with patient and provided her with resource lists. General: non toxic, no acute distress, appears at stated age Derm: warm, dry Head: atraumatic, normocephalic, symmetric Eyes: No lid lag, anicteric sclera Mouth: no lip lesion, mucus membranes moist Cardiovascular: S1S2 reg, no murmur, positive posterior tibial pulses bilaterally, pacemaker left anterior chest. Lungs: Respirations even, regular, and unlabored on 2 L O2 via nasal cannula, no accessory muscle usage. Lungs sounds continue to be diminished at bases with diffuse soft crackles. Abdominal: soft, nontender to palpation, no guarding, no appreciable organomegaly Ext: no gross muscle atrophy, no contractures, 1+ bilateral lower extremity pitting edema with venous discoloration Neuro: Speech clear, no focal neuro deficits Psych: Alert, oriented, appropriate affect Plan of care: Acute exacerbation of chronic diastolic heart failure -ProBNP 4250. -EKG revealing a ventricular paced rhythm at 61 bpm. -Echocardiogram completed on 09/16/19 revealed a preserved EF of 55-60% with a severely dilated left atrium, mild aortic stenosis, and moderate pulmonary hypertension. -Cardiology consulted, appreciate recommendations. -Telemetry monitoring -Daily weights to continue -Close monitoring of I's and O's -Cardiac diet -Lasix decreased to 40 mg IVP daily and we will continue Aldactone 25 mg daily. -Continued close monitoring of electrolytes while diuresing. -Follow up chest x-ray completed 05/01/20 revealed findings similar when compared to x-ray obtained on 04/29/20 correlating for mild CHF with a small right pleural effusion. L2 Compression Fracture -Yesterday afternoon, patient complained of back pain resulting from a mechanical fall that occurred 2 weeks ago. 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 -Orthopedic following and recommending patient to follow-up outpatient. -PT/OT recommending subacute rehab, patient declining. Patient to be discharged home with [facility]. -Pain management and symptomatic care. Severe osteoarthritis of right shoulder -X-ray right shoulder completed revealing severe osteoarthritis of right should er as evidenced by reduced bone mineralization and presence of arthropathy at the acromial clavicular joint with no evidence of acute fracture or dislocation. -Orthopedic following and recommending patient to follow-up outpatient. -PT/OT recommending subacute rehab, patient declining. Patient to be discharged home with [facility]. -Pain management and symptomatic care. Hypokalemia, resolved Chronic persistent atrial fibrillation on anticoagulation Eliquis -Continue anticoagulation with Eliquis. CAD with previous stenting to RCA and pacemaker placement -We will continue cardiac meds including Eliquis, aspirin, carvedilol, hydralazine HCL, isosorbide mononitrate ER, pravastatin, Lasix, and Aldactone. -Heart healthy diet Hypertension -Monitor vital signs and continue daily medication regimen with carvedilol, hydralazine HCL, isosorbide mononitrate. Hyperlipidemia -Continue daily medication regimen with pravastatin 40 mg nightly. -Heart healthy diet CODE STATUS: Full Code DVT prophylaxis: Eliquis Discussed with: Patient, case management and RN. Anticipated discharge date: [place] Anticipated discharge place: Home with [facility] A total of 45 minutes was spent on the care of this complex patient more than 50% of the time was spent in counseling and care coordination. Objective - Vital Signs Vital signs: Vital Signs Temp 97.4 F L 05/02/20 07:12 Pulse 64 05/02/20 07:12 Resp 17 05/02/20 07:12 BP 147/68 05/02/20 07:12 Pulse Ox 98 05/02/20 07:12 Intake & Output 05/01/20 05/02/20 05/02/20 18:59 06:59 18:59 Intake Total 520 120 Output Total 600 250 Balance 520 -480 -250 Weight 70.5 kg Intake: Oral 520 120 Output: Urine 600 250 Other: Voiding Method Diaper # Voids 1 - Labs CBC & Chem 7: 05/01/20 14:13 05/02/20 09:35 Labs: Abnormal Lab Results - Last 24 Hours (Table) 05/01/20 05/02/20 Range/Units 14:13 09:35 WBC 4.27 L (4.50-10.00) X 10*3/uL RBC 3.50 L (4.10-5.20) X 10*6/uL Hgb 9.5 L (12.0-15.0) g/dL Hct 31.5 L (37.2-46.3) % MCHC 30.2 L (32.0-37.0) g/dL RDW 15.4 H (11.5-14.5) % Lymphocytes # 0.48 L (0.90-5.00) X 10*3/uL Chloride 97 L (98-107) mmol/L Carbon Dioxide 37 H (22-30) mmol/L BUN 50 H (7-17) mg/dL Creatinine 1.53 H (0.52-1.04) mg/dL Glucose 119 H (74-99) mg/dL Microbiology - Last 24 Hours (Table) 04/29/20 17:55 Blood Culture - Preliminary Blood No Growth after 48 hours 04/29/20 17:55 Blood Culture - Preliminary Blood No Growth after 48 hours <Michelle Woodall - Last Filed: 05/02/20 14:11> Subjective Patient seen and examined independently. Patient was also seen by Wil Grande NP and case was discussed. I am in agreement with subjective, physical exam, assessment and plan as written above and amended below. General: non toxic, no distress, appears at stated age Derm: warm, dry Head: atraumatic, normocephalic, symmetric Eyes: EOMI, no lid lag, anicteric sclera Mouth: no lip lesion, mucus membranes moist Cardiovascular: S1S2 reg, no murmur, positive posterior tibial pulse bilateral, Lungs: Decreased bs bilateral, no rhonchi, no rales , no accessory muscle use Abdominal: soft, nontender to palpation, no guarding, no appreciable organomegaly Ext: no gross muscle atrophy, 1+ edema b/l LE, no contractures Neuro: CN II-XI grossly intact, no focal neuro deficits Psych: Alert, oriented, appropriate affect Objective - Vital Signs Vital signs: Vital Signs Temp 97.4 F L 05/02/20 07:12 Pulse 64 05/02/20 07:12 Resp 17 05/02/20 07:12 BP 147/68 05/02/20 07:12 Pulse Ox 98 05/02/20 07:12 Intake & Output 05/01/20 05/02/20 05/02/20 18:59 06:59 18:59 Intake Total 520 120 Output Total 600 400 Balance 520 -480 -400 Weight 70.5 kg Intake: Oral 520 120 Output: Urine 600 400 Other: Voiding Method Diaper # Voids 1 - Labs CBC & Chem 7: 05/01/20 14:13 05/02/20 09:35 Labs: Abnormal Lab Results - Last 24 Hours (Table) 05/01/20 05/02/20 Range/Units 14:13 09:35 WBC 4.27 L (4.50-10.00) X 10*3/uL RBC 3.50 L (4.10-5.20) X 10*6/uL Hgb 9.5 L (12.0-15.0) g/dL Hct 31.5 L (37.2-46.3) % MCHC 30.2 L (32.0-37.0) g/dL RDW 15.4 H (11.5-14.5) % Lymphocytes # 0.48 L (0.90-5.00) X 10*3/uL Chloride 97 L (98-107) mmol/L Carbon Dioxide 37 H (22-30) mmol/L BUN 50 H (7-17) mg/dL Creatinine 1.53 H (0.52-1.04) mg/dL Glucose 119 H (74-99) mg/dL Microbiology - Last 24 Hours (Table) 04/29/20 17:55 Blood Culture - Preliminary Blood No Growth after 48 hours 04/29/20 17:55 Blood Culture - Preliminary Blood No Growth after 48 hours
--- NOTE | 2020-05-02 11:49 | P.PN ---
Subjective Progress Note Date: 05/02/20 CHIEF COMPLAINT: Shortness of breath HISTORY OF PRESENT ILLNESS: 04/30/2020 This is a 89-year-old female with a past medical history significant for chronic persistent atrial fibrillation, coronary artery disease with PCI to the RCA, permanent pacemaker insertion, hypertension, and hyperlipidemia. Patient follows in the office with Dr. Rao. We have been asked to see the patient in consultation for shortness of breath. Patient states she has been having progressive shortness and lower extremity edema over the past two days. Patient denies chest pain or pressure. Denies cough. Denies fever or chills. Patient was hospitalized in February 2020 and underwent thoracentesis with removal of 900cc. Echocardiogram completed in August 2019 revealed ejection fraction 55-60% 05/02/2020 Patient examined this morning. She is sitting up in the chair. She denies chest pain or pressure. She continues to report shortness of breath. She remains on IV Lasix. Creatinine 1.53 today, stable from 1.5 yesterday. Vital signs stable. PHYSICAL EXAM: VITAL SIGNS: Reviewed. GENERAL: Well-developed in no acute distress. HEENT: Head is normocephalic. Pupils are equal, round. Sclerae anicteric. Mucous membranes of the mouth are moist. Neck supple. No JVD or thyromegaly LUNGS: Respirations even and unlabored. Lungs diminished. HEART: Regular rate and rhythm. S1 and S2 heard. EXTREMITIES: Normal range of motion. No clubbing or cyanosis. Peripheral pulses intact. 1+ bilateral lower extremity edema ASSESSMENT: Shortness of breath Acute exacerbation of chronic diastolic congestive heart failure, EF 55-60% Right pleural effusion Coronary artery disease with previous PCI to RCA Chronic persistent atrial fibrillation, on anticoagulation with Eliquis History of permanent pacemaker insertion Hypertension Hyperlipidemia Chronic kidney disease PLAN: Continue current cardiac medications Continue IV lasix Daily weights Accurate I&O Monitor kidney function Anticipate transition to oral Lasix tomorrow and discharge home tomorrow if patient remains stable Nurse practitioner note has been reviewed by physician. Signing provider agrees with the documented findings, assessment, and plan of care. Objective - Vital Signs Vital signs: Vital Signs Temp 97.4 F L 05/02/20 07:12 Pulse 64 05/02/20 07:12 Resp 17 05/02/20 07:12 BP 147/68 05/02/20 07:12 Pulse Ox 98 02/06/21 07:12 Intake & Output 05/01/20 05/02/20 05/02/20 18:59 06:59 18:59 Intake Total 520 120 Output Total 600 250 Balance 520 -480 -250 Weight 70.5 kg Intake: Oral 520 120 Output: Urine 600 250 Other: Voiding Method Diaper # Voids 1 - Labs CBC & Chem 7: 05/01/20 14:13 05/02/20 09:35 Labs: Abnormal Lab Results - Last 24 Hours (Table) 05/01/20 05/02/20 Range/Units 14:13 09:35 WBC 4.27 L (4.50-10.00) X 10*3/uL RBC 3.50 L (4.10-5.20) X 10*6/uL Hgb 9.5 L (12.0-15.0) g/dL Hct 31.5 L (37.2-46.3) % MCHC 30.2 L (32.0-37.0) g/dL RDW 15.4 H (11.5-14.5) % Lymphocytes # 0.48 L (0.90-5.00) X 10*3/uL Chloride 97 L (98-107) mmol/L Carbon Dioxide 37 H (22-30) mmol/L BUN 50 H (7-17) mg/dL Creatinine 1.53 H (0.52-1.04) mg/dL Glucose 119 H (74-99) mg/dL Microbiology - Last 24 Hours (Table) 04/29/20 17:55 Blood Culture - Preliminary Blood No Growth after 48 hours 04/29/20 17:55 Blood Culture - Preliminary Blood No Growth after 48 hours
[2020-05-02] MEDS: ALPRAZolam 0.5 MG TAB PO SCH (21:14)
[2020-05-02] MEDS ORDERED: IPRATROPIUM-ALBUTEROL 3 ML NEB INHALATION PRN (23:54)
[2020-05-03] MEDS: ALBUTEROL HFA INHALER INHALATION PRN (00:08)
[2020-05-03] MEDS: LEVOTHYROXINE 112 MCG TAB PO SCH (06:02)
[2020-05-03 06:23] VITALS: PULSE 60
[2020-05-03 06:23] LABS: HCT 29.3 % (34.0-46.0); HGB 9.6 gm/dL (11.4-16.0); MCH 27.8 pg (25.0-35.0); MCHC 32.7 g/dL (31.0-37.0); MCV 84.8 fL (80.0-100.0); Mean Platelet Volume 7.3; Platelet Count 187 k/uL (150-450); RBC 3.46 m/uL (3.80-5.40); RDW 15.5 % (11.5-15.5); WBC 4.2 k/uL (3.8-10.6)
[2020-05-03 06:34] LABS: African American GFR (CKD) 34 (>60 ml/min/1.73 sqM); Anion Gap 8 mmol/L; Blood Urea Nitrogen 51 mg/dL (7-17); Calcium 8.7 mg/dL (8.4-10.2); Carbon Dioxide 34 mmol/L (22-30); Chloride 98 mmol/L (98-107); Glucose 108 mg/dL (74-99); Magnesium 2.4 mg/dL (1.6-2.3); Non-African American GFR(CKD) 30 (>60 ml/min/1.73 sqM); Potassium 3.8 mmol/L (3.5-5.1); Sodium 140 mmol/L (137-145)
[2020-05-03] MEDS: ALBUTEROL HFA INHALER INHALATION SCH ×2 (07:20→11:38)
[2020-05-03 08:07] VITALS: BP 135/72; RESP 14; TEMP 97.5
[2020-05-03] MEDS: hydrALAZINE HCL 25 MG TAB PO SCH (08:23)
[2020-05-03] MEDS: ISOSORBIDE MONONITRATE ER 30 MG TAB.ER.24H PO SCH (08:24)
[2020-05-03] MEDS: APIXABAN 2.5 MG TABLET PO SCH (08:24)
[2020-05-03] MEDS: PANTOPRAZOLE 40 MG TABLET PO SCH (08:24)
[2020-05-03] MEDS: SPIRONOLACTONE 25 MG TAB PO SCH (08:24)
[2020-05-03] MEDS: carvediloL 3.125 MG TAB PO SCH (08:24)
[2020-05-03] MEDS: PRAVASTATIN SODIUM 40 MG TAB PO SCH (08:24)
[2020-05-03] MEDS ORDERED: FUROSEMIDE 10 MG/ML 4 ML VIAL IV SCH (09:00)
--- NOTE | 2020-05-03 10:50 | P.DS ---
<Wil Grande - Last Filed: 05/03/20 10:48> Providers Expected date of discharge: 05/03/20 Hospital Course: Discharge Diagnosis: Acute exacerbation of chronic diastolic heart failure L2 Compression Fracture Severe osteoarthritis of right shoulder Hypokalemia, resolved Chronic persistent atrial fibrillation with a controlled ventricular rate on anticoagulation Eliquis CAD with previous stenting to RCA and pacemaker placement Hypertension Hyperlipidemia Hospital Course: Patient is an 89-year-old female with a past medical history including CAD with previous stent placement to RCA, chronic diastolic heart failure, chronic persistent atrial fibrillation on anticoagulation with Eliquis, pacemaker, hypertension, and hyperlipidemia. She presented to [facility] with a chief complaint of shortness of breath and lower extremity edema beginning 2 days prior and progressively worsening. Covid testing completed with negative results. Patient was found to have an elevated proBNP of 4250. X- ray revealed a right pleural effusion and right lower lobe pneumonia that is the same or slightly worsened from previous exam accompanied by mild heart failure. Follow up chest x-ray completed 05/01/20 revealed findings similar when compared to x-ray obtained on 04/29/20 correlating for mild CHF with a small right pleural effusion. Ultrasound of chest revealed a minimal right effusion of 0.6 cm with no evidence of left effusion. EKG revealed a ventricular paced rhythm at 61 bpm. Patient admitted under our services for acute exacerbation of chronic diastolic heart failure. She was treated with IV Lasix 40 mg along with Aldactone 25 mg daily. During patient's stay she informed provider that she had been having back and right shoulder pain from a reported mechanical fall that occurred 2 weeks prior to admission. 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 During hospitalization, patient was also seen and evaluated by cardiology, orthopedics, social work, and PT/OT. Patient was recommended for subacute rehab facility, but was opposed to this. We have increased patient's home diuretics and she is being discharged home with [facility] and instructed to continue all of her medications as directed, to weigh herself daily, keep all follow-up appointments as scheduled, and was given a prescription for outpatient lab work to repeat a BMP and magnesium level in 3 days. Physical exam: Patient was seen and fully evaluated at the bedside. Patient was sitting up in chair with lower extremities elevated. She continues to report being tired, but has been doing well. Pt was on room air throughout the night and maintained her SPO2 at 92% or greater an ambulatory pulse ox without oxygen was 94%. She denies having any chest pain or palpitations, abdominal pain, nausea, or having any difficulties or changes with urinary or bowel function. BMP and CBC revealing no significant abnormalities. Hemoglobin, renal function and electrolytes stable. Upon discharge, hemoglobin 9.6, BUN 51, creatinine 1.56, and GFR of 30. Electrolytes within normal limits. General: non toxic, no acute distress, appears at stated age Derm: warm, dry Head: atraumatic, normocephalic, symmetric Eyes: No lid lag, anicteric sclera Mouth: no lip lesion, mucus membranes moist Cardiovascular: S1S2 reg, no murmur, positive posterior tibial pulses bilaterally, pacemaker left anterior chest. Lungs: Respirations even, regular, and unlabored on room air, no accessory muscle usage. Lungs sounds continue to be diminished at bases. No crackles, rhonchi, wheezes, or rales noted. Abdominal: soft, nontender to palpation, no guarding, no appreciable organomegaly Ext: no gross muscle atrophy, no contractures, 1+ bilateral lower extremity pitting edema with venous discoloration Neuro: Speech clear, no focal neuro deficits Psych: Alert, oriented, appropriate affect A total of 45 minutes of time were spent preparing this complex discharge summary. Patient Condition at Discharge: Stable Plan - Discharge Summary Discharge Rx Participant: No New Discharge Prescriptions: New Furosemide [Lasix] 20 mg PO DAILY 30 Days #30 tab Continue Levothyroxine Sodium 112 mcg PO DAILY@0600 Ergocalciferol (Vitamin D2) [Vitamin D2] 50,000 unit PO SA@2100 ALPRAZolam [Xanax] 0.5 mg PO HS@2100 carvediloL [Coreg] 3.125 mg PO BID@0900,2100 Acetaminophen [Tylenol Extra Strength] 500 - 1,000 mg PO Q8H PRN PRN Reason: Pain Pravastatin Sodium [Pravachol] 40 mg PO DAILY@0900 hydrALAZINE HCL [Apresoline] 25 mg PO TID@0900,1300,2100 Apixaban [Eliquis] 2.5 mg PO BID@0900,2100 Ipratropium-Albuterol Nebulize [Duoneb 0.5 mg-3 mg/3 ml Soln] 3 ml INHALATION RT-Q4H Pantoprazole [Protonix] 40 mg PO DAILY@0900 Potassium Chloride ER [K-Dur 10] 10 meq PO DAILY@0900 Spironolactone [Aldactone] 25 mg PO HS Isosorbide Mononitrate ER [Imdur] 30 mg PO DAILY Changed Furosemide [Lasix] 40 mg PO DAILY #0 Discontinued Furosemide [Lasix] 80 mg PO DAILY@0900 Discharge Medication List ALPRAZolam [Xanax] 0.5 mg PO HS@209912/03/17 [History] Ergocalciferol (Vitamin D2) [Vitamin D2] 50,000 unit PO SA@209912/03/17 [History] Levothyroxine Sodium 112 mcg PO DAILY@59912/03/17 [History] carvediloL [Coreg] 3.125 mg PO BID@0900,209909/16/19 [History] Acetaminophen [Tylenol Extra Strength] 500 - 1,000 mg PO Q8H PRN 10/11/19 [History] Apixaban [Eliquis] 2.5 mg PO BID@0900,209903/05/20 [History] Ipratropium-Albuterol Nebulize [Duoneb 0.5 mg-3 mg/3 ml Soln] 3 ml INHALATION RT-Q4H 03/05/20 [History] Pantoprazole [Protonix] 40 mg PO DAILY@0900 03/05/20 [History] Pravastatin Sodium [Pravachol] 40 mg PO DAILY@0903/05/20 [History] hydrALAZINE HCL [Apresoline] 25 mg PO TID@0900,1300,209903/05/20 [History] Isosorbide Mononitrate ER [Imdur] 30 mg PO DAILY 04/29/20 [History] Potassium Chloride ER [K-Dur 10] 10 meq PO DAILY@0900 04/29/20 [History] Spironolactone [Aldactone] 25 mg PO HS 04/29/20 [History] Furosemide [Lasix] 20 mg PO DAILY 30 Days #30 tab 05/03/20 [Rx] Furosemide [Lasix] 40 mg PO DAILY #0 05/03/20 [Rx] Follow up Appointment(s)/Referral(s): Chris Heath MD [Primary Care Provider] - 1-2 days (office closed at time of discharge. Please call Monday to schedule appointment ) [facility], [NON-STAFF] - As Needed George Smith DO [Doctor of Osteopathic Medicine] - 1 Week (office closed at time of discharge. Please call Monday to schedule an appointment) Arelis Rao MD [STAFF PHYSICIAN] - 1 Week (Office closed at time of discharge. Please call Monday to schedule appointment ) Ambulatory/Diagnostic Orders: Basic Metabolic Panel [LAB.AMB] Time Frame: 3 Days, Location: None Selected Magnesium [LAB.AMB] Time Frame: 3 Days, Location: None Selected Patient Instructions/Handouts: Heart Failure (DC) Activity/Diet/Wound Care/Special Instructions: Activity: As tolerated. Diet: Heart healthy cardiac diet as we discussed. Special Instructions: You are being discharged home with [facility] services. Please take all of her medications every day as directed without missing any doses. Please be sure to Weigh herself every day, and notify your PCP immediately if you notice a weight gain greater than 2 pounds in 24 hours. Please be sure to keep all of your follow-up appointments, it is necessary to follow-up with your PCP, cardiology, and orthopedics. Please follow-up with repeat lab work (BMP and magnesium) to check your electrolyte levels in 3 days as we increased your home diuretics. Discharge Disposition: HOME WITH HOME HEALTH SERVICES <Talisha,Erica Marlene - Last Filed: 05/03/20 15:34> Providers Date of admission: 04/29/20 19:48 Attending physician: Iva Leach MD Consults: 04/29/20 19:48 Consult Physician Routine Consulting Provider: Yinka Jones Consult Reason/Comments: CHF, pleural effusion Do you want consulting provider notified?: Yes 04/30/20 18:03 Consult Physician Routine Consulting Provider: George Smith Consult Reason/Comments: L2 Fx Do you want consulting provider notified?: Yes Primary care physician: Chris Heath MD Hospital Course: Patient seen and examined independently. Patient was also seen by Wil Grande NP and case was discussed. I am in agreement with discharge diagnosis, hospital course, and physical exam as written above and amended below. Patient seen and examined at bedside. She is feeling improved. She continues to have some back pain. Her breathing is better. She continues to not sleep well in the hospital. We again went over the importance of taking her diuretics as prescribed, allowing home health to come out and continue teaching on congestive heart failure, and the importance of follow-up with cardiology. General: non toxic, no distress, appears at stated age Derm: warm, dry Head: atraumatic, normocephalic, symmetric Eyes: EOMI, no lid lag, anicteric sclera Mouth: no lip lesion, mucus membranes moist Cardiovascular: S1S2 reg, no murmur, positive posterior tibial pulse bilateral, Lungs: Rhonchi right base , no accessory muscle use Abdominal: soft, nontender to palpation, no guarding, no appreciable organomegaly Ext: no gross muscle atrophy, 2+ edema, no contractures Neuro: CN II-XI grossly intact, no focal neuro deficits Psych: Alert, oriented, appropriate affect
--- NOTE | 2020-05-03 11:39 | P.PN ---
Progress Note - Text Progress Note Date: 05/03/20 C spine images reviewed. Severe cervical spondylotic changes. No evidence of acute fractures. Grade I listhesis of C2-4, borderline stability. Non acute. Severe osteoporosis. Pt s/e doing OK no acute overnight issues. Painful in shoulder on R as well as generally. Generalized weakness. No focal deficits. Exam otherwise stable. Assessment: 89-year-old female with shortness of breath and low back pain 1. L2 acute on chronic compression fracture 50% loss vertebral body height likely healing, no neurologic deficit 2. Neck pain status post fall from standing 3. Right shoulder severe osteoarthritis with pain Plan: -Appreciate consult. -Continue medical management -Pain control: As needed -Aggressive ambulation protocol. OOB with all meals. OOB or in chair 4-5x daily. -PT/OT -TEDs, SCDs, mechanical ppx. OK for heparin today. Early ambulation is best. -GI ppx. -Trend labs. -Dispo: Per primary team. Follow-up with orthopedics in 2 weeks
--- NOTE | 2020-05-03 12:50 | P.PN ---
Subjective Progress Note Date: 05/03/20 CHIEF COMPLAINT: Shortness of breath HISTORY OF PRESENT ILLNESS: 04/30/2020 This is a 89-year-old female with a past medical history significant for chronic persistent atrial fibrillation, coronary artery disease with PCI to the RCA, permanent pacemaker insertion, hypertension, and hyperlipidemia. Patient follows in the office with Dr. Rao. We have been asked to see the patient in consultation for shortness of breath. Patient states she has been having progressive shortness and lower extremity edema over the past two days. Patient denies chest pain or pressure. Denies cough. Denies fever or chills. Patient was hospitalized in February 2020 and underwent thoracentesis with removal of 900cc. Echocardiogram completed in August 2019 revealed ejection fraction 55-60% 05/02/2020 Patient examined this morning. She is sitting up in the chair. She denies chest pain or pressure. She continues to report shortness of breath. She remains on IV Lasix. Creatinine 1.53 today, stable from 1.5 yesterday. Vital signs stable. 05/03/2020 Patient examined this morning she is sitting up in a chair. She states she did not sleep well last night. She denies chest pain or pressure. She states her shortness of breath is improving. Vital signs are stable. PHYSICAL EXAM: VITAL SIGNS: Reviewed. GENERAL: Well-developed in no acute distress. HEENT: Head is normocephalic. Pupils are equal, round. Sclerae anicteric. Mucous membranes of the mouth are moist. Neck supple. No JVD or thyromegaly LUNGS: Respirations even and unlabored. Lungs diminished. HEART: Regular rate and rhythm. S1 and S2 heard. EXTREMITIES: Normal range of motion. No clubbing or cyanosis. Peripheral pulses intact. 1+ bilateral lower extremity edema ASSESSMENT: Shortness of breath Acute exacerbation of chronic diastolic congestive heart failure, EF 55-60% Right pleural effusion Coronary artery disease with previous PCI to RCA Chronic persistent atrial fibrillation, on anticoagulation with Eliquis History of permanent pacemaker insertion Hypertension Hyperlipidemia Chronic kidney disease PLAN: Discontinue IV Lasix. Transition to oral Lasix 40 mg daily Patient is stable for discharge today from a cardiac perspective. She is to follow up outpatient with Dr. Rao Nurse practitioner note has been reviewed by physician. Signing provider agrees with the documented findings, assessment, and plan of care. Objective - Vital Signs Vital signs: Vital Signs Temp 97.5 F L 05/03/20 08:05 Pulse 60 05/03/20 08:05 Resp 14 05/03/20 08:05 BP 135/72 05/03/20 08:05 Pulse Ox 99 05/03/20 08:05 Intake & Output 05/02/20 05/03/20 05/03/20 18:59 06:59 18:59 Output Total 400 150 250 Balance -400 -150 -250 Weight 70.3 kg Output: Urine 400 150 250 Other: Voiding Method Bedside Commode Diaper # Voids 1 - Labs CBC & Chem 7: 05/03/20 06:02 05/03/20 06:02 Labs: Abnormal Lab Results - Last 24 Hours (Table) 05/03/20 05/03/20 Range/Units 06:02 06:02 RBC 3.46 L (3.80-5.40) m/uL Hgb 9.6 L (11.4-16.0) gm/dL Hct 29.3 L (34.0-46.0) % Carbon Dioxide 34 H (22-30) mmol/L BUN 51 H (7-17) mg/dL Creatinine 1.56 H (0.52-1.04) mg/dL Glucose 108 H (74-99) mg/dL Magnesium 2.4 H (1.6-2.3) mg/dL Microbiology - Last 24 Hours (Table) 04/29/20 17:55 Blood Culture - Preliminary Blood No Growth after 72 hours 04/29/20 17:55 Blood Culture - Preliminary Blood No Growth after 72 hours
[2020-05-04] MEDS ORDERED: FUROSEMIDE 40 MG TAB PO SCH (09:00)
== END 2020-05-03 13:35 | disposition home health service (06) | DRG 291 ==
LOC: EC 16:57 → 4SSUR 19:48
PROVIDERS: ADMIT Internal Medicine; ATTEND Internal Medicine
DX: I13.0 Hypertensive heart and chronic kidney disease with heart failure and stage 1 through stage 4 chronic kidney disease, or unspecified chronic kidney disease (principal); I50.33 Acute on chronic diastolic (congestive) heart failure; I48.19 Other persistent atrial fibrillation; J44.1 Chronic obstructive pulmonary disease with (acute) exacerbation; M48.56XA Collapsed vertebra, not elsewhere classified, lumbar region, initial encounter for fracture; I25.10 Atherosclerotic heart disease of native coronary artery without angina pectoris; E89.0 Postprocedural hypothyroidism; Z20.822 Contact with and (suspected) exposure to COVID-19; E78.5 Hyperlipidemia, unspecified; I27.20 Pulmonary hypertension, unspecified; E87.6 Hypokalemia; M19.011 Primary osteoarthritis, right shoulder; Z96.651 Presence of right artificial knee joint; K21.9 Gastro-esophageal reflux disease without esophagitis; Z96.1 Presence of intraocular lens; M51.34 Other intervertebral disc degeneration, thoracic region; N18.32 Chronic kidney disease, stage 3b; Z79.890 Hormone replacement therapy; Z79.899 Other long term (current) drug therapy; Z79.01 Long term (current) use of anticoagulants; Z87.891 Personal history of nicotine dependence; Z90.710 Acquired absence of both cervix and uterus; Z95.5 Presence of coronary angioplasty implant and graft; Z95.0 Presence of cardiac pacemaker; Z88.8 Allergy status to other drugs, medicaments and biological substances; Z90.49 Acquired absence of other specified parts of digestive tract; Z98.890 Other specified postprocedural states; Z90.89 Acquired absence of other organs; Z98.49 Cataract extraction status, unspecified eye
CPT/HCPCS: 36415; 71045; 72052; 72072; 72100; 76604; 80048; 80053; 82728; 83605; 83615; 83735; 83880; 84145; 84484; 85025; 85027; 85610; 85730; 86140; 87040; 87635; 93005; 94640; 99285

== ENCOUNTER 2020-05-14 18:15 | Inpatient (IN) | payer MEDICARE, BC ==
[2020-05-14] MEDS ORDERED: ETOMIDATE 2 MG/ML 10 ML VIAL IVP STA (21:22)
[2020-05-14] MEDS ORDERED: SUCCINYLCHOLINE CHLORIDE VIAL 200 MG/10 ML VIAL IV STA (21:23)
[2020-05-14] MEDS ORDERED: MIDAZOLAM 1 MG/ML 5 ML VIAL IV STA (22:04)
[2020-05-14 22:33] LABS: Anisocytosis Slight; Basophils % (A) 0 %; Eosinophils % (A) 0 %; HCT 33.3 % (34.0-46.0); Hypochromasia Slight; Lymphocytes # (A) 0.2 k/uL (1.0-4.8); Lymphocytes % (A) 4 %; MCH 28.5 pg (25.0-35.0); MCHC 32.9 g/dL (31.0-37.0); MCV 86.5 fL (80.0-100.0); Mean Platelet Volume 7.8; Monocytes # (A) 0.1 k/uL (0-1.0); Monocytes % (A) 3 %; Neutrophils # (A) 4.6 k/uL (1.3-7.7); Neutrophils % (A) 92 %; Platelet Count 121 k/uL (150-450); Poikilocytosis Slight; RBC 3.85 m/uL (3.80-5.40); RDW 17.6 % (11.5-15.5)
--- NOTE | 2020-05-14 22:34 | ED ---
Altered Mental Status HPI <Vincent Cordova - Last Filed: 05/14/20 22:46> - General Source: patient, EMS Mode of arrival: EMS Limitations: altered mental status <Annamaria Peralta Marlene - Last Filed: 05/17/20 21:23> - General Chief Complaint: Altered Mental Status Stated Complaint: Altered Mental Status Time Seen by Provider: 05/14/20 18:20 - History of Present Illness Initial Comments: Patient is a 89-year-old female resents to emergency department via EMS with altered mental status. EMS reported that family told them she had just got her second round of the covert vaccine yesterday. EMS noted that he reported shortly after the vaccine was given patient became acutely confused short of breath she was in no apparent pain while sitting up in bed during the exam or interview. She was pleasantly confused and stated that she was having some shortness of breath. Review of systems unable to be obtained due to patient's mental status. (Vincent Cordova) - Related Data Home Medications Medication Instructions Recorded Confirmed ALPRAZolam [Xanax] 0.5 mg PO HS@209912/03/17 05/14/20 Ergocalciferol (Vitamin D2) 50,000 unit PO SA@209912/03/17 05/14/20 [Vitamin D2] Levothyroxine Sodium 112 mcg PO DAILY@0612/03/17 05/14/20 carvediloL [Coreg] 3.125 mg PO BID@0900,209909/16/19 05/14/20 Acetaminophen [Tylenol Extra 500 - 1,000 mg PO Q8H PRN 10/11/19 05/14/20 Strength] Apixaban [Eliquis] 2.5 mg PO BID@0900,209903/05/20 05/14/20 Ipratropium-Albuterol Nebulize 3 ml INHALATION RT-Q4H 03/05/20 05/14/20 [Duoneb 0.5 mg-3 mg/3 ml Soln] Pantoprazole [Protonix] 40 mg PO DAILY@0900 03/05/20 05/14/20 Pravastatin Sodium [Pravachol] 40 mg PO DAILY@0900 03/05/20 05/14/20 hydrALAZINE HCL [Apresoline] 25 mg PO TID@0900,1300,2100 03/05/20 05/14/20 Isosorbide Mononitrate ER [Imdur] 30 mg PO DAILY 04/29/20 05/14/20 Potassium Chloride ER [K-Dur 10] 10 meq PO DAILY@0900 04/29/20 05/14/20 Spironolactone [Aldactone] 25 mg PO HS 04/29/20 05/14/20 Previous Rx's Medication Instructions Recorded Furosemide [Lasix] 20 mg PO DAILY 30 Days #30 tab 05/03/20 Furosemide [Lasix] 40 mg PO DAILY #0 05/03/20 Allergies Allergy/AdvReac Type Severity Reaction Status Date / Time brimonidine [From Simbrinza] Allergy Unknown Verified 05/14/20 22:58 brinzolamide [From Simbrinza] Allergy Unknown Verified 05/14/20 22:58 tramadol AdvReac Nausea & Verified 05/14/20 22:58 Vomiting Review of Systems ROS Other: All systems not noted in ROS Statement are negative. <Vincent Cordova - Last Filed: 05/14/20 22:46> ROS Other: All systems not noted in ROS Statement are negative. <Annamaria Peralta - Last Filed: 05/17/20 21:23> ROS Statement: Those systems with pertinent positive or pertinent negative responses have been documented in the HPI. Past Medical History Past Medical History: Atrial Fibrillation, Coronary Artery Disease (CAD), Heart Failure, GERD/Reflux, Hyperlipidemia, Hypertension, Respiratory Disorder, Thyroid Disorder Additional Past Medical History / Comment(s): Coronary artery disease, chronic atrial fibrillation, hypertension, hyperlipidemia, chronic stage II kidney disease with a baseline creatinine of around 1.5, hypothyroidism, glaucoma, History of Any Multi-Drug Resistant Organisms: None Reported Past Surgical History: Cholecystectomy, Heart Catheterization With Stent, Hysterectomy, Orthopedic Surgery, Tonsillectomy Additional Past Surgical History / Comment(s): right knee replacement, carpal tunnel release, "thyroidectomy", fco feet -heel spurs, cataracts-lens implants. pacemarker September 2019 Past Anesthesia/Blood Transfusion Reactions: No Reported Reaction Date of Last Stent Placement:: 2013 Past Psychological History: No Psychological Hx Reported Smoking Status: Former smoker Past Alcohol Use History: None Reported Past Drug Use History: None Reported - Past Family History Daughter(s) Additional Family Medical History / Comment(s): short term memory loss Father Additional Family Medical History / Comment(s): denies family history of cancer or DM in her mother <Annamaria Peralta - Last Filed: 05/17/20 21:23> General Exam General appearance: lethargic, obtunded, in distress Head exam: Present: atraumatic, normocephalic, normal inspection Eye exam: Present: normal appearance, PERRL, EOMI. Absent: scleral icterus, conjunctival injection, periorbital swelling ENT exam: Present: normal exam, mucous membranes moist Neck exam: Present: normal inspection. Absent: tenderness, meningismus, lymphadenopathy Respiratory exam: Present: accessory muscle use, decreased breath sounds. Absent: respiratory distress, wheezes, rales, rhonchi, stridor Cardiovascular Exam: Present: regular rate, normal rhythm, normal heart sounds. Absent: systolic murmur, diastolic murmur, rubs, gallop, clicks GI/Abdominal exam: Present: soft, normal bowel sounds. Absent: distended, tenderness, guarding, rebound, rigid Extremities exam: Present: normal inspection, full ROM, normal capillary refill. Absent: tenderness, pedal edema, joint swelling, calf tenderness Back exam: Present: normal inspection Neurological exam: Present: alert, CN II-XII intact. Absent: oriented X3 (To person place but not time) Psychiatric exam: Present: depressed Skin exam: Present: warm, dry, intact, normal color. Absent: rash <Vincent Cordova - Last Filed: 05/14/20 22:46> Limitations: altered mental status <Annamaria Peralta - Last Filed: 05/17/20 21:23> Course Vital Signs 05/14/20 05/14/20 05/14/20 18:20 19:30 20:27 Temperature Pulse Rate 72 60 Respiratory 22 24 12 Rate Blood Pressure 148/81 96/41 O2 Sat by Pulse 100 99 Oximetry 05/14/20 05/14/20 05/14/20 20:40 20:50 21:00 Temperature 85 F L Pulse Rate 62 59 L 59 L Respiratory 12 12 12 Rate Blood Pressure 89/55 118/46 118/46 O2 Sat by Pulse 100 97 98 Oximetry 05/14/20 05/14/20 05/14/20 21:42 21:45 22:16 Temperature 88.5 F L Pulse Rate 60 60 62 Respiratory 12 16 14 Rate Blood Pressure 105/56 130/60 O2 Sat by Pulse 88 L 100 Oximetry 05/14/20 23:12 Temperature 88.8 F L Pulse Rate 58 L Respiratory 14 Rate Blood Pressure 98/48 O2 Sat by Pulse 100 Oximetry Procedures - Intubation Sedative: Etomidate Mg Given: 10 Paralytic: Succinylcholine Mg Given: 80 Laryngoscope: fiber optic video scope Size: 4 ET Tube Size: 7.5 ET Tube Uncuffed: No Tube Secured Depth (cm): 21 Tube Secured Location: lips Tube Placement Confirmation: visualized tube passing through cords, equal breath sounds bilaterally, no breath sounds over epigastrium, confirmation by capnometry Patient Tolerated Procedure: well, no complications Intubation Complications: none <Annamaria Peralta - Last Filed: 05/17/20 21:23> Medical Decision Making - Lab Data Result diagrams: 05/14/20 22:26 <Vincent Cordova - Last Filed: 05/14/20 22:46> - Lab Data Result diagrams: 05/17/20 04:31 05/17/20 08:17 <Annamaria Peralta - Last Filed: 05/17/20 21:23> - Medical Decision Making Basic labs, chest x-ray, EKG, nasal cannula 2 L/m, quality assurance monitor chassis ordered Patient's emergency contact was attempted to be reached via phone to obtain a more thorough history. Patient's rectal temperature was 86 started on fluids bear hugger. Upon reevaluation patient was having labored breathing arterial blood gas was ordered (Vincent Cordova) Patient was evaluated by myself. Patient is registered under a 60 year old female however physical exam is not consistent with this. I looked in to the patient's purse to find the patient's photo ID which is consistent with an 89-year-old female. Registration is changed. Labs were reordered. Patient is obtunded upon my exam and therefore requires intubation. Chest x-ray demonstrates bilateral pleural effusions. I did speak with the patient's son who reports that she had a fall and hit her head today. Patient is on anticoagulation. He requested patient remain a full code. After intubation is performed patient sent for CT which demonstrates cerebral atrophy and chronic small vessel ischemia. No bleed. CT of the patient's of the pelvis demonstrates pleural effusions pulmonary infiltrates. Mild cardiomegaly. I spoke with Dr. Silva who agreed to admit the patient. I spoke with Dr. Lewis. Patient placed on propofol drip. She is awaiting to the floor (Annamaria Peralta) - Lab Data Lab Results 05/14/20 05/14/20 05/14/20 Range/Units 22:26 22:26 22:26 WBC 5.0 (3.8-10.6) k/uL RBC 3.85 (3.80-5.40) m/uL Hgb 11.0 L (11.4-16.0) gm/dL Hct 33.3 L (34.0-46.0) % MCV 86.5 (80.0-100.0) fL MCH 28.5 (25.0-35.0) pg MCHC 32.9 (31.0-37.0) g/dL RDW 17.6 H (11.5-15.5) % Plt Count 121 L (150-450) k/uL MPV 7.8 Neutrophils % 92 % Lymphocytes % 4 % Monocytes % 3 % Eosinophils % 0 % Basophils % 0 % Neutrophils # 4.6 (1.3-7.7) k/uL Lymphocytes # 0.2 L (1.0-4.8) k/uL Monocytes # 0.1 (0-1.0) k/uL Eosinophils # 0.0 (0-0.7) k/uL Basophils # 0.0 (0-0.2) k/uL Hypochromasia Slight Poikilocytosis Slight Anisocytosis Slight PT 13.2 H (9.0-12.0) sec INR 1.3 H (<1.2) APTT 28.5 (22.0-30.0) sec Sodium 138 (137-145) mmol/L Potassium 4.2 (3.5-5.1) mmol/L Chloride 102 (98-107) mmol/L Carbon Dioxide 27 (22-30) mmol/L Anion Gap 9 mmol/L BUN 67 H (7-17) mg/dL Creatinine 1.84 H (0.52-1.04) mg/dL Est GFR (CKD-EPI)AfAm 28 (>60 ml/min/1.73 sqM) Est GFR (CKD-EPI)NonAf 24 (>60 ml/min/1.73 sqM) Glucose 117 H (74-99) mg/dL Plasma Lactic Acid Jose (0.7-2.0) mmol/L Calcium 7.7 L (8.4-10.2) mg/dL Total Bilirubin 0.9 (0.2-1.3) mg/dL AST 278 H (14-36) U/L ALT 121 H (4-34) U/L Alkaline Phosphatase 155 H (38-126) U/L Ammonia (<30) umol/L Troponin I (0.000-0.034) ng/mL NT-Pro-B Natriuret Pep pg/mL Total Protein 6.5 (6.3-8.2) g/dL Albumin 3.3 L (3.5-5.0) g/dL TSH 2.410 (0.465-4.680) mIU/L Coronavirus (PCR) (Not Detectd) Blood Type Blood Type Recheck Bld Type Recheck Status Antibody Screen Spec Expiration Date 05/14/20 05/14/20 05/14/20 Range/Units 22:26 22:26 22:26 WBC (3.8-10.6) k/uL RBC (3.80-5.40) m/uL Hgb (11.4-16.0) gm/dL Hct (34.0-46.0) % MCV (80.0-100.0) fL MCH (25.0-35.0) pg MCHC (31.0-37.0) g/dL RDW (11.5-15.5) % Plt Count (150-450) k/uL MPV Neutrophils % % Lymphocytes % % Monocytes % % Eosinophils % % Basophils % % Neutrophils # (1.3-7.7) k/uL Lymphocytes # (1.0-4.8) k/uL Monocytes # (0-1.0) k/uL Eosinophils # (0-0.7) k/uL Basophils # (0-0.2) k/uL Hypochromasia Poikilocytosis Anisocytosis PT (9.0-12.0) sec INR (<1.2) APTT (22.0-30.0) sec Sodium (137-145) mmol/L Potassium (3.5-5.1) mmol/L Chloride (98-107) mmol/L Carbon Dioxide (22-30) mmol/L Anion Gap mmol/L BUN (7-17) mg/dL Creatinine (0.52-1.04) mg/dL Est GFR (CKD-EPI)AfAm (>60 ml/min/1.73 sqM) Est GFR (CKD-EPI)NonAf (>60 ml/min/1.73 sqM) Glucose (74-99) mg/dL Plasma Lactic Acid Jose 0.8 (0.7-2.0) mmol/L Calcium (8.4-10.2) mg/dL Total Bilirubin (0.2-1.3) mg/dL AST (14-36) U/L ALT (4-34) U/L Alkaline Phosphatase (38-126) U/L Ammonia 17 (<30) umol/L Troponin I 0.016 (0.000-0.034) ng/mL NT-Pro-B Natriuret Pep 2160 pg/mL Total Protein (6.3-8.2) g/dL Albumin (3.5-5.0) g/dL TSH (0.465-4.680) mIU/L Coronavirus (PCR) (Not Detectd) Blood Type Blood Type Recheck Bld Type Recheck Status Antibody Screen Spec Expiration Date 05/14/20 05/14/20 Range/Units 22:26 22:26 WBC (3.8-10.6) k/uL RBC (3.80-5.40) m/uL Hgb (11.4-16.0) gm/dL Hct (34.0-46.0) % MCV (80.0-100.0) fL MCH (25.0-35.0) pg MCHC (31.0-37.0) g/dL RDW (11.5-15.5) % Plt Count (150-450) k/uL MPV Neutrophils % % Lymphocytes % % Monocytes % % Eosinophils % % Basophils % % Neutrophils # (1.3-7.7) k/uL Lymphocytes # (1.0-4.8) k/uL Monocytes # (0-1.0) k/uL Eosinophils # (0-0.7) k/uL Basophils # (0-0.2) k/uL Hypochromasia Poikilocytosis Anisocytosis PT (9.0-12.0) sec INR (<1.2) APTT (22.0-30.0) sec Sodium (137-145) mmol/L Potassium (3.5-5.1) mmol/L Chloride (98-107) mmol/L Carbon Dioxide (22-30) mmol/L Anion Gap mmol/L BUN (7-17) mg/dL Creatinine (0.52-1.04) mg/dL Est GFR (CKD-EPI)AfAm (>60 ml/min/1.73 sqM) Est GFR (CKD-EPI)NonAf (>60 ml/min/1.73 sqM) Glucose (74-99) mg/dL Plasma Lactic Acid Jose (0.7-2.0) mmol/L Calcium (8.4-10.2) mg/dL Total Bilirubin (0.2-1.3) mg/dL AST (14-36) U/L ALT (4-34) U/L Alkaline Phosphatase (38-126) U/L Ammonia (<30) umol/L Troponin I (0.000-0.034) ng/mL NT-Pro-B Natriuret Pep pg/mL Total Protein (6.3-8.2) g/dL Albumin (3.5-5.0) g/dL TSH (0.465-4.680) mIU/L Coronavirus (PCR) Not Detected (Not Detectd) Blood Type B Positive Blood Type Recheck B Pos Bld Type Recheck Status No Antibody Screen NEGATIVE Spec Expiration Date 05/17/2020 - 2325 Critical Care Time Critical Care Time: Yes <Annamaria Peralta - Last Filed: 05/17/20 21:23> Critical Care Time: 46 minutes (Annamaria Peralta) Disposition <Vincent Cordova - Last Filed: 05/14/20 22:46> Is patient prescribed a controlled substance at d/c from ED?: No Decision to Admit Reason: Admit from EC Decision Date: 05/14/20 Decision Time: 22:34 <Annamaria Peralta - Last Filed: 05/17/20 21:23> Clinical Impression: Congestive heart failure, Pleural effusion, Acute pulmonary edema, Acute encephalopathy, Ventilator dependent, Anemia Disposition: ADMITTED IP TO THIS HOSP Condition: Stable
--- NOTE | 2020-05-14 22:35 | CT ---
EXAMINATION TYPE: CT abdomen pelvis wo con DATE OF EXAM: 05/14/2020 COMPARISON: None HISTORY: Abdominal pain CT DLP: 819.9 mGycm Automated exposure control for dose reduction was used. Images obtained from the diaphragm to the floor the pelvis without contrast. There are large pleural effusions. Pleural fluid is more on the right side. There is airspace consolidation in the right lowe r lobe. There is extensive coronary artery calcification. There is some infiltrate and atelectasis al so left lower lobe. Thoracic aorta is atheromatous. Liver shows no focal defect. There are clips from cholecystectomy. Spleen is intact. There is no panc reatic mass. The stomach is intact. There is no evidence of pancreatic mass. The bile ducts are not dilated. There is no adrenal mass. Kidneys show no hydronephrosis. Ureters are not dilated. Abdominal aorta is atheromatous. There is no retroperitoneal Adenopathy. There are numerous diverticula in the sigmoid colon. There is rectal catheter noted. Bladder distends smoothly. There is no inguinal hernia. Append ix is posterior and appears normal. There is no mesenteric edema. There is some retained fecal materi al in the rectum. The bony pelvis is intact. There is no evidence of hip fracture. There is 30% compression deformity of L2 vertebral body which is not changed compared to lumbar spine x-ray of 04/30/2020. IMPRESSION: Extensive atherosclerotic vascular disease. Pleural effusions and pulmonary infiltrates and mild cardiomegaly suggestive of chronic congestive he art failure. Moderate colonic diverticulosis without diverticulitis.
--- NOTE | 2020-05-14 22:37 | CT ---
EXAMINATION TYPE: CT brain wo con DATE OF EXAM: 05/14/2020 COMPARISON: None HISTORY: AMS CT DLP: 1099.4 mGycm Automated exposure control for dose reduction was used. Images obtained of the brain without contrast. There is cerebral cortical atrophy. There is no mass effect nor midline shift. There is no sign of in tracranial hemorrhage. There is some patchy white matter hypodensity in both occipital lobes. The luz varium is intact. Skull base is intact. There is normal aeration of the mastoid sinuses. IMPRESSION: Cerebral atrophy. Chronic small vessel ischemia. No acute intracranial abnormality.
[2020-05-14] MEDS ORDERED: NALOXONE 0.4 MG/ML 1 ML VIAL IV PRN (22:41)
[2020-05-14 22:42] LABS: INR 1.3 (<1.2); Partial Thromboplastin Time 28.5 sec (22.0-30.0); Prothrombin Time 13.2 sec (9.0-12.0)
[2020-05-14] MEDS ORDERED: FUROSEMIDE 10 MG/ML 10 ML VIAL IV STA (22:46)
[2020-05-14] MEDS ORDERED: propofoL 50 ML IV ONE (22:47)
[2020-05-14 22:51] LABS: Lactic Acid, Venous 0.8 mmol/L (0.7-2.0)
[2020-05-14 22:52] LABS: Albumin 3.3 g/dL (3.5-5.0); Calcium 7.7 mg/dL (8.4-10.2); Potassium 4.2 mmol/L (3.5-5.1); Total Bilirubin 0.9 mg/dL (0.2-1.3); Total Protein 6.5 g/dL (6.3-8.2)
--- NOTE | 2020-05-14 23:07 | XR ---
EXAMINATION TYPE: XR chest 1V portable DATE OF EXAM: 05/14/2020 COMPARISON: 05/01/2020 HISTORY: Check tube placement TECHNIQUE: Single view FINDINGS: Endotracheal tube is 2 cm from the yanet. There is pulmonary vascular congestion. There is blunting of the costophrenic angles. There is left axillary pacemaker. There is pulmonary interstiti al and airspace edema. IMPRESSION: Congestive heart failure with right pleural effusions. Small left pleural effusion. Pulmo nary interstitial and airspace edema. There is increased edema on the right side compared to old exam .
[2020-05-14 23:45] LABS: Glucose,Whole Blood 113 mg/dL (75-99)
[2020-05-15] MEDS: FUROSEMIDE 10 MG/ML 4 ML VIAL IV SCH ×3 (00:27→17:27)
--- NOTE | 2020-05-15 00:29 | P.HPIM ---
History of Present Illness H&P Date: 05/14/20 Chief Complaint: shortness of breath , altered mental status 89 year old female with afib, CHF, hypertension , hypothyroid patient comes in by ambulance, after her son notified EMS for altered mental status and trouble breathing, he reports that yesterday she was at her baseline status of health,a however , just after she received her second dose of COVID vaccine, she did not feel well, and today she was having trouble breathing and changes in her mental status , for which he notified EMS to be brought to the hospital . no other history is available at this time, medical chart from the ED reviewed, case discussed with ED doc. initially there was confusion about deidra murphy identity , and then later this was discovered and corrected, and family contacted, her son was only able to provide brief insight about his mothers condition. in the ED, patient was found obtunded, her ABG showed acute respiratory acidosis with hypercapnia, CXR suggestive of pleural effusion and pulmonary edema. blood work showed stable anemia, thrombocytopenia , elevated liver enzymes, , no leukocytosis but patient was hypothermic. patient was intubated, CT of the head and neck done, as patient son also reported that she has fell and hit her head today, this returned showing no acut e intracranial pathology. CT abd pelvis, showing diverticular disease without diverticulitis EKG showed vent paced rhythm. patient received 2 L normal saline in the Ambulance en route Review of Systems ROS unobtainable: due to endotracheal tube, due to mental status Past Medical History Past Medical History: Atrial Fibrillation, Coronary Artery Disease (CAD), Heart Failure, GERD/Reflux, Hyperlipidemia, Hypertension, Respiratory Disorder, Thyroid Disorder Additional Past Medical History / Comment(s): Coronary artery disease, chronic atrial fibrillation, hypertension, hyperlipidemia, chronic stage II kidney disease with a baseline creatinine of around 1.5, hypothyroidism, glaucoma, History of Any Multi-Drug Resistant Organisms: None Reported Past Surgical History: Cholecystectomy, Heart Catheterization With Stent, Hysterectomy, Orthopedic Surgery, Tonsillectomy Additional Past Surgical History / Comment(s): right knee replacement, carpal tunnel release, "thyroidectomy", fco feet -heel spurs, cataracts-lens implants. pacemarker September 2019 Past Anesthesia/Blood Transfusion Reactions: No Reported Reaction Date of Last Stent Placement:: 2013 Past Psychological History: No Psychological Hx Reported Smoking Status: Former smoker Past Alcohol Use History: None Reported Past Drug Use History: None Reported - Past Family History Daughter(s) Additional Family Medical History / Comment(s): short term memory loss Father Additional Family Medical History / Comment(s): denies family history of cancer or DM in her mother Medications and Allergies Home Medications Medication Instructions Recorded Confirmed Type ALPRAZolam [Xanax] 0.5 mg PO HS@209912/03/17 04/29/20 History Ergocalciferol (Vitamin D2) 50,000 unit PO SA@209912/03/17 04/29/20 History [Vitamin D2] Levothyroxine Sodium 112 mcg PO DAILY@0612/03/17 04/29/20 History carvediloL [Coreg] 3.125 mg PO BID@0900,209909/16/19 04/29/20 History Acetaminophen [Tylenol Extra 500 - 1,000 mg PO Q8H PRN 10/11/19 04/29/20 History Strength] Apixaban [Eliquis] 2.5 mg PO BID@0900,209903/05/20 04/29/20 History Ipratropium-Albuterol Nebulize 3 ml INHALATION RT-Q4H 03/05/20 04/29/20 History [Duoneb 0.5 mg-3 mg/3 ml Soln] Pantoprazole [Protonix] 40 mg PO DAILY@0900 03/05/20 04/29/20 History Pravastatin Sodium [Pravachol] 40 mg PO DAILY@0900 03/05/20 04/29/20 History hydrALAZINE HCL [Apresoline] 25 mg PO TID@0900,1300,209903/05/20 04/29/20 History Isosorbide Mononitrate ER [Imdur] 30 mg PO DAILY 04/29/20 04/29/20 History Potassium Chloride ER [K-Dur 10] 10 meq PO DAILY@0900 04/29/20 04/29/20 History Spironolactone [Aldactone] 25 mg PO HS 04/29/20 04/29/20 History Furosemide [Lasix] 20 mg PO DAILY 30 Days #30 tab 05/03/20 Rx Furosemide [Lasix] 40 mg PO DAILY #0 05/03/20 04/29/20 Rx Allergies Allergy/AdvReac Type Severity Reaction Status Date / Time brimonidine [From Simbrinza] Allergy Unknown Verified 05/14/20 22:58 brinzolamide [From Simbrinza] Allergy Unknown Verified 05/14/20 22:58 tramadol AdvReac Nausea & Verified 05/14/20 22:58 Vomiting Physical Exam Vitals: Vital Signs Pulse Resp BP Pulse Ox 05/14/20 21:42 60 12 105/56 88 L 05/14/20 19:30 24 05/14/20 18:20 72 22 148/81 100 Intake and Output 05/14/20 05/14/20 05/14/20 06:59 14:59 22:59 Other: Weight 67.132 kg Constitutional: patient sedated , intubated on vent support Eyes: Anicteric sclerae, moist conjunctiva, Pupils equal round reactive to light ENMT: NC/AT Neck: Supple, no masses, or JVD No carotid bruits No thyromegaly Lungs: decrease breath sounds at lung bases bilaterally , no wheezing or rhonchi Clear to percussion Normal respiratory effort, no accessory muscle use Cardiovascular: Heart regular in rate and rhythm, No murmurs, gallops, or rubs No peripheral edema Abdominal: Soft Nontender, no guarding, rebound or rigidity Abdomen moving with respiration Normoactive bowel sounds No hepatomegaly, No splenomegaly No palpable mass No abdominal wall hernia noted Skin: hypothermic, on bear hugger, congested feet and hands bilaterally , rash under her right breast, Extremities: No digital cyanosis No clubbing Pedal pulses weak , symmetrical , capillary refill slow Radial pulses intact and symmetrical Psychiatric: sedated intubated Neuro UNABLE TO ASSESs patient intubated , sedated Lymphatics: no palpable cervical or supraclavicular , or inguinal lymph nodes Results CBC & Chem 7: 05/14/20 22:26 05/14/20 22:26 Assessment and Plan Assessment: acute metabolic encephalopathy acute hypercapnic respiratory failure acute CHF exacerbation with pleural effusion and pulmonary edema chronic anemia FREDO hypothermia elevated liver enzymes, possible passive hepatic congestion from above afib s/p pacemaker on eliquis hypertension CAD thrombocytopenia hypothyroid plan supportive care ICU admission vent support, managed by ICU blood cutlure IV diuresis neuro check s monitor hemobglobin , platelet, renal function bear hugger active warming monitor vital signs lopez cath for strict I/Os imaging reviewed , CT brain no acute pathology , ABd pelvis CT no acute pathology CODE STATUS:full code DVT prophylaxis: on eliquis Discussed with: Patient, ER, RN Anticipated length of stay > than [address]: [facility] A total of 75 minutes was spent on the care of this complex patient more than 50% of the time was spent in counseling and care coordination.
[2020-05-15 00:32] LABS: ABG Base Excess 3.9 mmol/L; ABG HCO3 28 mmol/L (21-25); ABG PCO2 37 mmHg (35-45); ABG PH 7.48 (7.35-7.45); ABG PO2 203 mmHg (83-108); ABG TCO2 29 mmol/L (19-24); Allen Test Performed? Yes
[2020-05-15] MEDS: NOREPINEPHRINE 4 MG in SODIUM CHLORIDE 0.9% 250 ML IV SCH ×2 (02:19→19:57)
[2020-05-15 05:14] LABS: ABG Base Excess 4.4 mmol/L; ABG HCO3 28 mmol/L (21-25); ABG PCO2 35 mmHg (35-45); ABG PH 7.51 (7.35-7.45); ABG PO2 206 mmHg (83-108); ABG TCO2 29 mmol/L (19-24); Allen Test Performed? Yes
[2020-05-15 06:16] LABS: Potassium 3.3 mmol/L (3.5-5.1)
[2020-05-15] MEDS: LEVOTHYROXINE 112 MCG TAB PO SCH (06:22)
[2020-05-15 06:28] LABS: Anisocytosis Slight; Basophils % (A) 0 %; Eosinophils % (A) 1 %; HCT 24.9 % (34.0-46.0); Hypochromasia Slight; Lymphocytes # (A) 0.3 k/uL (1.0-4.8); Lymphocytes % (A) 5 %; MCH 27.6 pg (25.0-35.0); MCHC 32.5 g/dL (31.0-37.0); MCV 84.9 fL (80.0-100.0); Mean Platelet Volume 7.6; Monocytes # (A) 0.2 k/uL (0-1.0); Monocytes % (A) 4 %; Neutrophils # (A) 4.2 k/uL (1.3-7.7); Neutrophils % (A) 89 %; Platelet Count 160 k/uL (150-450); Poikilocytosis Slight; RBC 2.93 m/uL (3.80-5.40); RDW 17.9 % (11.5-15.5); WBC 4.7 k/uL (3.8-10.6)
[2020-05-15 06:30] LABS: HGB 8.1 gm/dL (11.4-16.0)
[2020-05-15] MEDS: POTASSIUM BICARBONATE/CIT AC 20 MEQ TABLET.EFF NG-TUBE SCH ×2 (06:52→11:26)
--- NOTE | 2020-05-15 08:33 | XR ---
EXAMINATION TYPE: XR chest 1V portable DATE OF EXAM: 05/15/2020 COMPARISON: 05/14/20 HISTORY: SOB, Follow Up FINDINGS: Indwelling tubes and catheters are unchanged. Patchy right lower lobe infiltrate persists. There is improved aeration throughout the upper lobes an d left lower lobe. Continued follow-up is advised. Stable appearance of the cardio-mediastinal structures at this time. Pleural effusion unchanged. IMPRESSION: 1. Patchy right lower lobe infiltrate persists. There is improved aeration throughout the upper lobe s and left lower lobe. Continued follow-up is advised.
[2020-05-15 09:18] LABS: Total Bilirubin 0.6 mg/dL (0.2-1.3)
--- NOTE | 2020-05-15 10:01 | P.CRDCN ---
History of Present Illness Consult date: 05/15/20 Chief complaint: Shortness of breath History of present illness: This is an 89-year-old female patient who requested to see as a consult in the i ntensive care unit for further evaluation off shortness of breath. The patient was intubated and she is on mechanical ventilation and currently she is sedated as well. The history was taken from the chart and the nurse taking care of the patient. The patient does have an underlying medical history consistent of coronary artery disease, chronic diastolic congestive heart failure, valvular heart disease was mild aortic stenosis, permanent atrial fibrillation, and also permanent pacemaker implantation. The patient was brought to the hospital by ambulance mainly because of change in mental status. When ambulance arrived the patient was confused. No reported history of chest pain or chest discomfort. Apparently the patient was struggling with shortness of breath. She received the COVID vaccine the day before. Because of the change in mental status the patient was intubated in the emergency department and she was transferred to the intensive care unit. She remains intubated. Hemodynamically she is on a small dose of norepinephrine. She is in atrial fibrillation was controlled heart rate. The EKG showed underlying atrial fibrillation was ventricular paced rhythm. The chest x-ray showed patchy infiltrate could be related to pneumonia. The NT proBNP was slightly elevated. The computed tomography scan of the head did not show any acute abnormalities. The patient did have an echocardiogram in 2019 and that revealed normal LV function with mild aortic stenosis and mild-to- moderate mitral regurgitation as well as [id number] tricuspid regurgitation. Past Medical History Past Medical History: Atrial Fibrillation, Coronary Artery Disease (CAD), Heart Failure, GERD/Reflux, Hyperlipidemia, Hypertension, Respiratory Disorder, Thyroid Disorder Additional Past Medical History / Comment(s): Coronary artery disease, chronic atrial fibrillation, hypertension, hyperlipidemia, chronic stage II kidney dise ase with a baseline creatinine of around 1.5, hypothyroidism, glaucoma, History of Any Multi-Drug Resistant Organisms: None Reported Past Surgical History: Cholecystectomy, Heart Catheterization With Stent, Hysterectomy, Orthopedic Surgery, Tonsillectomy Additional Past Surgical History / Comment(s): right knee replacement, carpal tunnel release, "thyroidectomy", fco feet -heel spurs, cataracts-lens implants. pacemarker September 2019 Past Anesthesia/Blood Transfusion Reactions: No Reported Reaction Date of Last Stent Placement:: 2013 Past Psychological History: No Psychological Hx Reported Smoking Status: Former smoker Past Alcohol Use History: None Reported Past Drug Use History: None Reported - Past Family History Daughter(s) Additional Family Medical History / Comment(s): short term memory loss Father Additional Family Medical History / Comment(s): denies family history of cancer or DM in her mother Medications and Allergies Home Medications Medication Instructions Recorded Confirmed Type ALPRAZolam [Xanax] 0.5 mg PO HS@209912/03/17 05/14/20 History Ergocalciferol (Vitamin D2) 50,000 unit PO SA@209912/03/17 05/14/20 History [Vitamin D2] Levothyroxine Sodium 112 mcg PO DAILY@0612/03/17 05/14/20 History carvediloL [Coreg] 3.125 mg PO BID@0900,209909/16/19 05/14/20 History Acetaminophen [Tylenol Extra 500 - 1,000 mg PO Q8H PRN 10/11/19 05/14/20 History Strength] Apixaban [Eliquis] 2.5 mg PO BID@0900,209903/05/20 05/14/20 History Ipratropium-Albuterol Nebulize 3 ml INHALATION RT-Q4H 03/05/20 05/14/20 History [Duoneb 0.5 mg-3 mg/3 ml Soln] Pantoprazole [Protonix] 40 mg PO DAILY@0900 03/05/20 05/14/20 History Pravastatin Sodium [Pravachol] 40 mg PO DAILY@0900 03/05/20 05/14/20 History hydrALAZINE HCL [Apresoline] 25 mg PO TID@0900,1300,209903/05/20 05/14/20 History Isosorbide Mononitrate ER [Imdur] 30 mg PO DAILY 04/29/20 05/14/20 History Potassium Chloride ER [K-Dur 10] 10 meq PO DAILY@0900 04/29/20 05/14/20 History Spironolactone [Aldactone] 25 mg PO HS 04/29/20 05/14/20 History Furosemide [Lasix] 20 mg PO DAILY 30 Days #30 tab 05/03/20 05/14/20 Rx Furosemide [Lasix] 40 mg PO DAILY #0 05/03/20 05/14/20 Rx Allergies Allergy/AdvReac Type Severity Reaction Status Date / Time brimonidine [From Simbrinza] Allergy Unknown Verified 05/14/20 22:58 brinzolamide [From Simbrinza] Allergy Unknown Verified 05/14/20 22:58 tramadol AdvReac Nausea & Verified 05/14/20 22:58 Vomiting Physical Exam Vitals: Vital Signs Temp Pulse Resp BP Pulse Ox 05/15/20 09:30 65 20 121/48 97 05/15/20 09:15 70 20 114/44 97 05/15/20 09:00 67 20 113/55 97 05/15/20 08:45 63 20 109/39 97 05/15/20 08:30 79 20 115/54 97 05/15/20 08:15 74 20 124/63 97 05/15/20 08:00 98.3 F 67 27 H 117/43 97 05/15/20 07:45 67 20 107/41 97 05/15/20 07:30 63 20 116/37 97 05/15/20 07:15 61 20 104/45 97 05/15/20 07:00 64 20 99/37 97 05/15/20 06:45 65 20 93/43 97 05/15/20 06:30 72 20 119/54 97 05/15/20 06:15 66 20 95/39 98 05/15/20 06:00 96.8 F L 63 20 98/44 98 05/15/20 05:45 69 20 130/37 97 05/15/20 05:30 68 20 124/44 98 05/15/20 05:15 74 20 117/45 98 05/15/20 05:00 77 16 103/54 97 05/15/20 04:45 61 20 101/28 98 05/15/20 04:30 62 20 75/55 98 05/15/20 04:15 63 20 105/61 97 05/15/20 04:00 95.7 F L 64 20 83/55 98 05/15/20 03:45 65 11 L 102/49 96 05/15/20 03:30 69 20 120/82 97 05/15/20 03:15 66 6 L 79/51 97 05/15/20 03:00 59 L 9 L 122/83 96 05/15/20 02:45 61 10 L 144/83 97 05/15/20 02:30 75 11 L 81/41 98 05/15/20 02:15 60 8 L 81/41 96 05/15/20 02:00 78 15 85/47 97 05/15/20 01:30 59 L 17 85/48 97 05/15/20 01:00 60 20 96/48 98 05/15/20 00:30 60 20 88/50 100 05/15/20 00:19 65 21 99 05/15/20 00:00 91.0 F L 60 20 90/49 100 05/14/20 23:48 65 96/75 05/14/20 23:12 88.8 F L 58 L 14 98/48 100 05/14/20 22:16 88.5 F L 62 14 130/60 05/14/20 21:45 60 16 100 05/14/20 21:42 60 12 105/56 88 L 05/14/20 21:00 59 L 12 118/46 98 05/14/20 20:50 59 L 12 118/46 97 05/14/20 20:40 85 F L 62 12 89/55 100 05/14/20 20:27 60 12 96/41 99 05/14/20 19:30 24 05/14/20 18:20 72 22 148/81 100 Intake and Output 05/14/20 05/15/20 05/15/20 22:59 06:59 14:59 Intake Total 0.336 141.191 20 Output Total 460 50 Balance 0.336 -318.809 -30 Intake: IV 140 20 0.9 @ 20 mL/hr 140 20 Intake, IV Titration 0.336 1.191 Amount propofoL 500 mg In Empty 0.336 0.806 Bag 1 bag @ Titrate IV . Q0M ONE Rx#:[id number] propofoL 500 mg In Empty 0.385 Bag 1 bag @ Titrate IV . Q0M [facility] Rx#:[id number] Output: Urine 460 50 Other: Voiding Method Indwelling Catheter Weight 67.132 kg 77 kg - Constitutional General appearance: no acute distress - Respiratory Respiratory: bilateral: diminished - Cardiovascular Rhythm: irregularly irregular Heart sounds: normal: S1, S2 Abnormal Heart Sounds: systolic murmur Results 05/15/20 05:30 05/15/20 05:30 Cardiac Enzymes 05/14/20 05/14/20 05/15/20 Range/Units 22:26 22:26 05:30 AST 278 H 204 H (14-36) U/L Troponin I 0.016 (0.000-0.034) ng/mL Coagulation 05/14/20 Range/Units 22:26 PT 13.2 H (9.0-12.0) sec APTT 28.5 (22.0-30.0) sec CBC 05/14/20 05/15/20 Range/Units 22: 05:30 WBC 5.0 4.7 (3.8-10.6) k/uL RBC 3.85 2.93 L (3.80-5.40) m/uL Hgb 11.0 L 8.1 L D (11.4-16.0) gm/dL Hct 33.3 L 24.9 L (34.0-46.0) % Plt Count 121 L 160 (150-450) k/uL Comprehensive Metabolic Panel 05/14/20 05/15/20 05/15/20 Range/Units 22: 05:30 05:30 Sodium 138 139 (137-145) mmol/L Potassium 4.2 3.3 L (3.5-5.1) mmol/L Chloride 102 103 (98-107) mmol/L Carbon Dioxide 27 27 (22-30) mmol/L BUN 67 H 65 H (7-17) mg/dL Creatinine 1.84 H 1.95 H (0.52-1.04) mg/dL Glucose 117 H 72 L (74-99) mg/dL Calcium 7.7 L 8.0 L (8.4-10.2) mg/dL AST 278 H 204 H (14-36) U/L ALT 121 H 116 H (4-34) U/L Alkaline Phosphatase 155 H (38-126) U/L Total Protein 6.5 (6.3-8.2) g/dL Albumin 3.3 L (3.5-5.0) g/dL Current Medications Generic Name Dose Route Start Last Admin Trade Name Freq PRN Reason Stop Dose Admin Apixaban 2.5 mg 05/15/20 09:00 Apixaban 2.5 Mg Tablet PO BID@0900,2100 LEONARDO Carvedilol 3.125 mg 05/15/20 09:00 Carvedilol 3.125 Mg Tab PO BID@0900,2100 [facility] Chlorhexidine Gluconate 15 ml 05/15/20 09:00 Chlorhexidine Gluconate 15 Ml Cup MUCOUS MEM BID LEONARDO Furosemide 40 mg 05/15/20 00:00 05/15/20 00:27 Furosemide 10 Mg/Ml 4 Ml Vial IV 40 mg Q8HR LEONARDO Administration Norepinephrine Bitartrate 4 mg 254 mls @ 14.669 mls/hr 05/15/20 02:15 05/15/20 02:19 / Sodium Chloride IV 0.05 mcg/kg/min .[id number] LEONARDO 14.669 mls/hr Administration Protocol 0.05 MCG/KG/MIN Propofol 500 mg/ IV Solution 50 mls @ 0 mls/hr 05/15/20 02:15 05/15/20 02:41 IV 35 mcg/kg/min .Q0M LEONARDO 16.17 mls/hr Titration Protocol Titrate Isosorbide Mononitrate 30 mg 05/15/20 09:00 Isosorbide Mononitrate Er 30 Mg Tab.Er.24h PO DAILY [facility] Levothyroxine Sodium 112 mcg 05/15/20 06:00 05/15/20 06:22 Levothyroxine 112 Mcg Tab PO 112 mcg DAILY@0600 [facility] Administration Naloxone HCl 0.2 mg 05/14/20 22:41 Naloxone 0.4 Mg/Ml 1 Ml Vial IV Q2M PRN Opioid Reversal Pantoprazole Sodium 40 mg 05/15/20 09:00 Pantoprazole 40 Mg/10 Ml Vial IVP DAILY [facility] Pravastatin Sodium 40 mg 05/15/20 09:00 Pravastatin Sodium 40 Mg Tab PO DAILY@0900 [facility] Spironolactone 25 mg 05/15/20 21:00 Spironolactone 25 Mg Tab PO HS [facility] Intake and Output 05/14/20 05/15/20 05/15/20 22:59 06:59 14:59 Intake Total 0.336 141.191 20 Output Total 460 50 Balance 0.336 -318.809 -30 Intake: IV 140 20 0.9 @ 20 mL/hr 140 20 Intake, IV Titration 0.336 1.191 Amount propofoL 500 mg In Empty 0.336 0.806 Bag 1 bag @ Titrate IV . Q0M ONE Rx#:[id number] propofoL 500 mg In Empty 0.385 Bag 1 bag @ Titrate IV . Q0M [facility] Rx#:[id number] Output: Urine 460 50 Other: Voiding Method Indwelling Catheter Weight 67.132 kg 77 kg 05/15/20 05:30 05/15/20 05:30 Assessment and Plan Assessment: Assessment #1 change in mental status of unknown etiology #2 heart failure with preserved ejection fraction exacerbation #3 permanent atrial fibrillation was controlled heart rate #4 known permanent pacemaker implantation #5 possible underlying pneumonia #6 multiple comorbid conditions Plan #1 the patient is on Lasix #2 monitor the kidney function and electrolytes #3 she is in process of getting an echocardiogram #4 continue oral anticoagulation #5 follow-up with the patient
[2020-05-15] MEDS: ISOSORBIDE MONONITRATE ER 30 MG TAB.ER.24H PO SCH (10:05)
--- NOTE | 2020-05-15 11:11 | US ---
EXAMINATION TYPE: US venous doppler duplex LE DATE OF EXAM: 05/15/2020 10:08 AM COMPARISON: US 2019 CLINICAL HISTORY: leg edema. Edema SIDE PERFORMED: Bilateral TECHNIQUE: The lower extremity deep venous system is examined utilizing real time linear array sonog adriana with graded compression, doppler sonography and color-flow sonography. VESSELS IMAGED: Common Femoral Vein Deep Femoral Vein Greater Saphenous Vein * Femoral Vein Popliteal Vein Small Saphenous Vein * Proximal Calf Veins (* superficial vessels) Right Leg: Negative for DVT Left Leg: Negative for DVT IMPRESSION: Grayscale, color doppler, spectral doppler imaging performed of the deep veins of the lo wer extremities. There is normal flow, compressibility, vascular waveforms.
[2020-05-15] MEDS: CHLORHEXIDINE GLUCONATE 15 ML CUP MUCOUS MEM SCH ×2 (11:24→20:39)
[2020-05-15] MEDS: PANTOPRAZOLE 40 MG/10 ML VIAL IVP SCH (11:24)
[2020-05-15] MEDS: APIXABAN 2.5 MG TABLET PO SCH ×2 (11:25→20:39)
[2020-05-15] MEDS: carvediloL 3.125 MG TAB PO SCH ×2 (11:26→20:39)
[2020-05-15] MEDS: PRAVASTATIN SODIUM 40 MG TAB PO SCH (11:38)
--- NOTE | 2020-05-15 11:45 | ECHOF ---
Referral Reason:chf MEASUREMENTS -------- HEIGHT: 165.1 cm WEIGHT: 76.7 kg BP: IVSd: 1.4 cm (0.6 - 1.1) LVIDd: 3.7 cm (3.9 - 5.3) LVPWd: 1.4 cm (0.6 - 1.1) IVSs: 2.1 cm LVIDs: 2.1 cm LVPWs: 1.8 cm Ao Diam: 2.7 cm (2.0 - 3.7) AV Cusp: 1.0 cm (1.5 - 2.6) LA Diam: 4.1 cm (2.7 - 3.8) MV EXCURSION: 10.065 mm (> 18.000) MV EF SLOPE: 73 mm/s (70 - 150) EPSS: 0.7 cm MV E Pete: 1.23 m/s MV DecT: 228 ms MV A Pete: 0.36 m/s MV E/A Ratio: 3.40 AV maxP.62 mmHg AV meanP.71 mmHg RAP: 20.00 mmHg RVSP: 55.06 mmHg FINDINGS -------- This was a technically difficult study with suboptimal views. Pt. on a vent. The left ventricular size is normal. There is moderate concentric left ventricular hypertrophy. O verall left ventricular systolic function is low-normal with, an EF between 50 - 55 %. The right ventricle is normal in size. The left atrium is mildly dilated. The right atrial size is normal. Aortic valve is trileaflet and is mildly thickened. There is mild aortic stenosis present. Peak/m tristen gradient across the Aortic Valve is 16.62mmHg / 9.71mmHg. The mitral valve is normal. The mitral valve leaflets are mildly thickened. Mild mitral regurgita tion is present. The tricuspid valve appears structurally normal. Mild tricuspid regurgitation present. There is m oderate pulmonary hypertension. The right ventricular systolic pressure, as measured by Doppler, is 55.06mmHg. There is no pulmonic regurgitation present. The aortic root size is normal. The inferior vena cava is dilated with no significant inspiratory collapse which is consistent estima ridge right atrial pressure of >20 mmHg. There is a trivial pericardial effusion present. CONCLUSIONS -------- 1. The left ventricular size is normal. 2. There is moderate concentric left ventricular hypertrophy. 3. Overall left ventricular systolic function is low-normal with, an EF between 50 - 55 %. 4. The left atrium is mildly dilated. 5. Aortic valve is trileaflet and is mildly thickened. 6. There is mild aortic stenosis present. 7. Peak/mean gradient across the Aortic Valve is 16.62mmHg / 9.71mmHg. 8. The mitral valve leaflets are mildly thickened. 9. Mild mitral regurgitation is present. 10. Mild tricuspid regurgitation present. 11. There is moderate pulmonary hypertension. 12. The right ventricular systolic pressure, as measured by Doppler, is 55.06mmHg. 13. The inferior vena cava is dilated with no significant inspiratory collapse which is consistent es timated right atrial pressure of >20 mmHg. 14. There is a trivial pericardial effusion present. DOPING SUPERVISOR: Wanda Samayao RDCS
--- NOTE | 2020-05-15 11:59 | P.PN ---
Subjective Progress Note Date: 05/15/20 Principal diagnosis: altered mentation Patient is an 89-year-old female with known history of diastolic congestive heart failure with ejection fraction 55-60%, mild aortic stenosis, atrial fibrillation, GERD, and multiple other comorbid conditions who presented to the emergency department via EMS secondary to altered mental status and difficulty breathing. She had received her Covid vaccine second dose one day prior. On arrival to the ER she was noted be hypothermic with a rectal temperature of 85, initial blood pressure was 148/81 pulse 72, and respiratory rate 22. Initial laboratory analysis showed platelet count of 121, hemoglobin 11 which is above her baseline, BUN 67, creatinine 1.84, AST 278, ALT 121. Covid testing was negative. Chest x-ray showed congestive heart failure with right-sided pleural effusion and pulmonary interstitial edema. In the ER she became more confused with increasing respiratory distress and was subsequently intubated. She was admitted to the ICU for acute exacerbation of congestive heart failure with acute hypoxic respiratory failure. She was started on IV Lasix. She did have hypotension and required a Levophed drip. She also required a warming blanket secondary to hypothermia. Critical care and cardiology were consulted. Cardiology agreed with obtaining a repeat echo and continuing Lasix. Patient seen and examined at bedside. She remains intubated and in the ICU. We have recently decreased her propofol drip. She is able to intermittently follow commands and looks at me when I'm speaking to her. She does not consistently and not her head yes or no. General: Ill-appearing, no distress, conjunctivae and stated age Derm: warm, dry Head: atraumatic, normocephalic, symmetric Eyes: EOMI, no lid lag, anicteric sclera Mouth: no lip lesion, mucus membranes dry Cardiovascular: S1-S2 irregular with, positive posterior tibial pulse bilateral, Lungs: Coarse breath sounds bilateral, no rhonchi, no rales , no accessory muscle use, on vent Abdominal: soft, nontender to palpation, no guarding, no appreciable organomegaly Ext: no gross muscle atrophy, 2+ lower extremity edema left greater than right, no contractures Neuro: Moving upper she makes independently, no tremor Psych: Awake, intermittently following commands Acute exacerbation of diastolic congestive heart failure with ejection fraction 55-60%, Right pleural effusion with acute hypoxic respiratory failure - Lasix IV q8H - Cardio recs - Await repeat echo - Coreg, Aldactone - not chronically on ACEI - Pulm recs, went vent as able - strict I and O, daily weights Toxic metabolic encephalopathy - Supportive care -Continue to evaluate once propofol is off FREDO on CKD III -Likely secondary to hepatorenal syndrome - Baseline creatinine 1.5-1.7 -Follow creatinine carefully with the diuresis Hypokalemia -Replace and recheck in a.m. Chronic A. fib -Continue anticoagulation with Eliquis -Coreg Anemia - at baseline - follow CBC - follow in the outpatient setting Hypotnesion - likely multifactorial, - wean levo as ableo - coreg continued, imdur on hold Chronic: Coronary artery disease status post PCI Dyslipidemia GERD Hypothyroidism DVT prophylaxis: eliquis Discussed with: patient, nursing, CM Anticipated discharge: undetermined Anticipated discharge place: undetermined A total of 45 minutes was spent on the care of this complex patient more than 50% of the time was spent in counseling and care coordination. Objective - Vital Signs Vital signs: Vital Signs Temp 98.3 F 05/15/20 08:00 Pulse 73 05/15/20 11:00 Resp 20 05/15/20 11:00 BP 131/75 05/15/20 11:00 Pulse Ox 97 05/15/20 11:00 Intake & Output 05/14/20 05/15/20 05/15/20 18:59 06:59 18:59 Intake Total 141.527 100 Output Total 460 500 Balance -318.473 -400 Weight 67.132 kg 77 kg Intake: IV 140 100 0.9 @ 20 mL/hr 140 100 Intake, IV Titration 1.527 Amount propofoL 500 mg In Empty 1.142 Bag 1 bag @ Titrate IV . Q0M ONE Rx#:[id number] propofoL 500 mg In Empty 0.385 Bag 1 bag @ Titrate IV . Q0M [facility] Rx#:[id number] Output: Urine 460 500 Other: Voiding Method Indwelling Catheter - Labs CBC & Chem 7: 05/15/20 05:30 05/15/20 05:30 Labs: Abnormal Lab Results - Last 24 Hours (Table) 05/14/20 05/14/20 05/14/20 Range/Units 22:26 22:26 22:26 RBC (3.80-5.40) m/uL Hgb 11.0 L (11.4-16.0) gm/dL Hct 33.3 L (34.0-46.0) % RDW 17.6 H (11.5-15.5) % Plt Count 121 L (150-450) k/uL Lymphocytes # 0.2 L (1.0-4.8) k/uL PT 13.2 H (9.0-12.0) sec INR 1.3 H (<1.2) ABG pH (7.35-7.45) ABG pO2 (83-108) mmHg ABG HCO3 (21-25) mmol/L ABG Total CO2 (19-24) mmol/L ABG O2 Saturation (94-97) % Potassium (3.5-5.1) mmol/L BUN 67 H (7-17) mg/dL Creatinine 1.84 H (0.52-1.04) mg/dL Glucose 117 H (74-99) mg/dL POC Glucose (mg/dL) (75-99) mg/dL Calcium 7.7 L (8.4-10.2) mg/dL AST 278 H (14-36) U/L ALT 121 H (4-34) U/L Alkaline Phosphatase 155 H (38-126) U/L Albumin 3.3 L (3.5-5.0) g/dL 05/14/20 05/15/20 05/15/20 Range/Units 23:43 00:32 05:13 RBC (3.80-5.40) m/uL Hgb (11.4-16.0) gm/dL Hct (34.0-46.0) % RDW (11.5-15.5) % Plt Count (150-450) k/uL Lymphocytes # (1.0-4.8) k/uL PT (9.0-12.0) sec INR (<1.2) ABG pH 7.48 H 7.51 H (7.35-7.45) ABG pO2 203 H 206 H (83-108) mmHg ABG HCO3 28 H 28 H (21-25) mmol/L ABG Total CO2 29 H 29 H (19-24) mmol/L ABG O2 Saturation 100.0 H 100.0 H (94-97) % Potassium (3.5-5.1) mmol/L BUN (7-17) mg/dL Creatinine (0.52-1.04) mg/dL Glucose (74-99) mg/dL POC Glucose (mg/dL) 113 H (75-99) mg/dL Calcium (8.4-10.2) mg/dL AST (14-36) U/L ALT (4-34) U/L Alkaline Phosphatase (38-126) U/L Albumin (3.5-5.0) g/dL 05/15/20 05/15/20 05/15/20 Range/Units 05:30 05:30 05:30 RBC 2.93 L (3.80-5.40) m/uL Hgb 8.1 L D (11.4-16.0) gm/dL Hct 24.9 L (34.0-46.0) % RDW 17.9 H (11.5-15.5) % Plt Count (150-450) k/uL Lymphocytes # 0.3 L (1.0-4.8) k/uL PT (9.0-12.0) sec INR (<1.2) ABG pH (7.35-7.45) ABG pO2 (83-108) mmHg ABG HCO3 (21-25) mmol/L ABG Total CO2 (19-24) mmol/L ABG O2 Saturation (94-97) % Potassium 3.3 L (3.5-5.1) mmol/L BUN 65 H (7-17) mg/dL Creatinine 1.95 H (0.52-1.04) mg/dL Glucose 72 L (74-99) mg/dL POC Glucose (mg/dL) (75-99) mg/dL Calcium 8.0 L (8.4-10.2) mg/dL AST 204 H (14-36) U/L ALT 116 H (4-34) U/L Alkaline Phosphatase (38-126) U/L Albumin (3.5-5.0) g/dL Microbiology - Last 24 Hours (Table) 05/14/20 22:22 Gram Stain - Preliminary Sputum Sputum Culture - Preliminary
[2020-05-15 12:04] LABS: Glucose,Whole Blood 82 mg/dL (75-99)
[2020-05-15 13:03] LABS: ABG Base Excess 4.1 mmol/L; ABG HCO3 29 mmol/L (21-25); ABG PCO2 48 mmHg (35-45); ABG PH 7.39 (7.35-7.45); ABG PO2 144 mmHg (83-108); ABG TCO2 31 mmol/L (19-24); Allen Test Performed? Yes
--- NOTE | 2020-05-15 14:04 | P.CNPUL ---
History of Present Illness Consult date: 05/15/20 Requesting physician: Joce Rubalcava Reason for consult: other (Acute hypoxic and hypercapnic respiratory failure secondary to CHF.) Chief complaint: Shortness of breath History of present illness: This is an 89-year-old female with history of multiple medical problems including chronic diastolic congestive heart failure, valvular heart disease, coronary artery disease, chronic atrial fibrillation, history of pacemaker implantation, patient was brought into the ER last night with mostly symptoms of shortness of breath and change in mental status. Patient was quite confused as per EMS, upon arrival, patient was struggling to breathe. And she had an ABG that showed acute hypoxic and hypercapnic respiratory failure as I was told by the ER physician on the phone. However could not locate the actual ABG. Patient was intubated upon arrival and her pCO2 was supposedly in the high 80s with low pH. Patient was placed on diuretics and bronchodilators, her chest x- ray clearly affected evidence of congestive heart failure, and she had a chronic recurrent right-sided pleural effusion that was present in the past drained twice in the last year, and the fluid was transudative in nature. Her BNP level was elevated. CT of the head showed no evidence of acute abnormality. Patient had previous echocardiogram showing normal LV function, mild aortic stenosis, and moderate mitral regurgitation. Patient was placed on diuretics, chest x-ray showed definite improvement this morning. This morning ABG on 50% FiO2 showed a pO2 of 206, pCO2 of 35, pH of 7.51. Propofol was placed on hold, patient was given a trial of IMV and pressure support with IMV of 8 and pressure support of 8, repeat ABG in 1 hour showed a pO2 of 144 pCO2 of 48 pH of 7.39 this was on 40% FiO2. However the patient was not following instructions, she was noted to be obtunded by the nurse taking care of the patient, and not quite ready for weaning although she had excellent ABG. Advised to continue to hold sedation advised to continue pressure support and IMV mode of mechanical ventilation. And will readdress weaning later on today. In the meantime we have continue diuretics and bronchodilators Review of Systems ROS unobtainable: due to endotracheal tube Past Medical History Past Medical History: Atrial Fibrillation, Coronary Artery Disease (CAD), Heart Failure, GERD/Reflux, Hyperlipidemia, Hypertension, Respiratory Disorder, Thyroid Disorder Additional Past Medical History / Comment(s): Coronary artery disease, chronic atrial fibrillation, hypertension, hyperlipidemia, chronic stage II kidney disease with a baseline creatinine of around 1.5, hypothyroidism, glaucoma, History of Any Multi-Drug Resistant Organisms: None Reported Past Surgical History: Cholecystectomy, Heart Catheterization With Stent, Hysterectomy, Orthopedic Surgery, Tonsillectomy Additional Past Surgical History / Comment(s): right knee replacement, carpal tunnel release, "thyroidectomy", fco feet -heel spurs, cataracts-lens implants. [email or web address] September 2019 Past Anesthesia/Blood Transfusion Reactions: No Reported Reaction Date of Last Stent Placement:: 2013 Past Psychological History: No Psychological Hx Reported Smoking Status: Former smoker Past Alcohol Use History: None Reported Past Drug Use History: None Reported - Past Family History Daughter(s) Additional Family Medical History / Comment(s): short term memory loss Father Additional Family Medical History / Comment(s): denies family history of cancer or DM in her mother Medications and Allergies Home Medications Medication Instructions Recorded Confirmed Type ALPRAZolam [Xanax] 0.5 mg PO HS@209912/03/17 05/14/20 History Ergocalciferol (Vitamin D2) 50,000 unit PO SA@209912/03/17 05/14/20 History [Vitamin D2] Levothyroxine Sodium 112 mcg PO DAILY@59912/03/17 05/14/20 History carvediloL [Coreg] 3.125 mg PO BID@09,209909/16/19 05/14/20 History Acetaminophen [Tylenol Extra 500 - 1,000 mg PO Q8H PRN 10/11/19 05/14/20 History Strength] Apixaban [Eliquis] 2.5 mg PO BID@899,209903/05/20 05/14/20 History Ipratropium-Albuterol Nebulize 3 ml INHALATION RT-Q4H 03/05/20 05/14/20 History [Duoneb 0.5 mg-3 mg/3 ml Soln] Pantoprazole [Protonix] 40 mg PO DAILY@0900 03/05/20 05/14/20 History Pravastatin Sodium [Pravachol] 40 mg PO DAILY@0900 03/05/20 05/14/20 History hydrALAZINE HCL [Apresoline] 25 mg PO TID@0900,1300,2100 03/05/20 05/14/20 History Isosorbide Mononitrate ER [Imdur] 30 mg PO DAILY 04/29/20 05/14/20 History Potassium Chloride ER [K-Dur 10] 10 meq PO DAILY@0900 04/29/20 05/14/20 History Spironolactone [Aldactone] 25 mg PO HS 04/29/20 05/14/20 History Furosemide [Lasix] 20 mg PO DAILY 30 Days #30 tab 05/03/20 05/14/20 Rx Furosemide [Lasix] 40 mg PO DAILY #0 05/03/20 05/14/20 Rx Allergies Allergy/AdvReac Type Severity Reaction Status Date / Time brimonidine [From Simbrinza] Allergy Unknown Verified 05/14/20 22:58 brinzolamide [From Simbrinza] Allergy Unknown Verified 05/14/20 22:58 tramadol AdvReac Nausea & Verified 05/14/20 22:58 Vomiting Physical Exam Vitals: Vital Signs Temp Pulse Resp BP Pulse Ox 05/15/20 13:00 63 26 H 109/57 98 05/15/20 12:45 63 20 116/56 98 05/15/20 12:30 20 114/54 97 05/15/20 12:15 70 25 H 125/99 97 05/15/20 12:00 97.6 F 20 176/113 99 05/15/20 11:45 81 20 108/81 98 05/15/20 11:30 69 20 128/69 97 05/15/20 11:15 74 20 134/69 98 05/15/20 11:00 73 20 131/75 97 05/15/20 10:45 20 137/83 97 05/15/20 10:30 73 20 128/64 98 05/15/20 10:15 75 20 121/60 97 05/15/20 10:00 76 20 114/54 98 05/15/20 09:45 60 20 115/45 96 05/15/20 09:30 65 20 121/48 97 05/15/20 09:15 70 20 114/44 97 05/15/20 09:00 67 20 113/55 97 05/15/20 08:45 63 20 109/39 97 05/15/20 08:30 79 20 115/54 97 05/15/20 08:15 74 20 124/63 97 05/15/20 08:00 98.3 F 67 27 H 117/43 97 05/15/20 07:45 67 20 107/41 97 05/15/20 07:30 63 20 116/37 97 05/15/20 07:15 61 20 104/45 97 05/15/20 07:00 64 20 99/37 97 05/15/20 06:45 65 20 93/43 97 05/15/20 06:30 72 20 119/54 97 05/15/20 06:15 66 20 95/39 98 05/15/20 06:00 96.8 F L 63 20 98/44 98 05/15/20 05:45 69 20 130/37 97 05/15/20 05:30 68 20 124/44 98 05/15/20 05:15 74 20 117/45 98 05/15/20 05:00 77 16 103/54 97 05/15/20 04:45 61 20 101/28 98 05/15/20 04:30 62 20 75/55 98 05/15/20 04:15 63 20 105/61 97 05/15/20 04:00 95.7 F L 64 20 83/55 98 05/15/20 03:45 65 11 L 102/49 96 05/15/20 03:30 69 20 120/82 97 05/15/20 03:15 66 6 L 79/51 97 05/15/20 03:00 59 L 9 L 122/83 96 05/15/20 02:45 61 10 L 144/83 97 05/15/20 02:30 75 11 L 81/41 98 05/15/20 02:15 60 8 L 81/41 96 05/15/20 02:00 78 15 85/47 97 05/15/20 01:30 59 L 17 85/48 97 05/15/20 01:00 60 20 96/48 98 05/15/20 00:30 60 20 88/50 100 05/15/20 00:19 65 21 99 05/15/20 00:00 91.0 F L 60 20 90/49 100 05/14/20 23:48 65 96/75 05/14/20 23:12 88.8 F L 58 L 14 98/48 100 05/14/20 22:16 88.5 F L 62 14 130/60 05/14/20 21:45 60 16 100 05/14/20 21:42 60 12 105/56 88 L 05/14/20 21:00 59 L 12 118/46 98 05/14/20 20:50 59 L 12 118/46 97 05/14/20 20:40 85 F L 62 12 89/55 100 05/14/20 20:27 60 12 96/41 99 05/14/20 19:30 24 05/14/20 18:20 72 22 148/81 100 Intake and Output 05/14/20 05/15/20 05/15/20 22:59 06:59 14:59 Intake Total 0.336 141.191 140 Output Total 460 700 Balance 0.336 -318.809 -560 Intake: IV 140 140 0.9 @ 20 mL/hr 140 140 Intake, IV Titration 0.336 1.191 Amount propofoL 500 mg In Empty 0.336 0.806 Bag 1 bag @ Titrate IV . Q0M ONE Rx#:[id number] propofoL 500 mg In Empty 0.385 Bag 1 bag @ Titrate IV . Q0M [facility] Rx#:[id number] Output: Urine 460 700 Other: Voiding Method Indwelling Catheter Indwelling Catheter Weight 67.132 kg 77 kg General: Revealed a 89-year-old female, frail looking, in no distress, on mechanical ventilation, sedated, on propofol. Head: atraumatic, normocephalic Eyes: PERRLA, EOMI, nonicteric. Mouth: Endotracheal tube and orogastric tube are intact. Dry mucous membranes noted. Cardiovascular: Irregular irregular rhythm, 2/6 systolic murmur thought the precordium. Lungs: Symmetrical chest expansion, coarse crackles noted bilaterally. Abdominal: Soft nontender no megaly no rebound no guarding. Ext: No clubbing, left lower extremities seem to be a bit more swollen than the right lower extremity, warm to touch, good pulses bilaterally. Neuro: Sedated on propofol, could not assess. Psych: Sedated, on propofol, could not assess. Skin: No rashes Results - Laboratory Findings CBC and BMP: 05/15/20 05:30 05/15/20 05:30 ABG ABG pH 7.39 (7.35-7.45) 05/15/20 12:57 ABG pCO2 48 mmHg (35-45) H 05/15/20 12:57 ABG pO2 144 mmHg (83-108) H 05/15/20 12:57 ABG O2 Saturation 100.0 % (94-97) H 05/15/20 12:57 PT/INR, D-dimer PT 13.2 sec (9.0-12.0) H 05/14/20 22:26 INR 1.3 (<1.2) H 05/14/20 22:26 Abnormal lab findings: Abnormal Labs 05/14/20 05/14/20 05/14/20 22:26 22:26 22:26 RBC Hgb 11.0 L Hct 33.3 L RDW 17.6 H Plt Count 121 L Lymphocytes # 0.2 L PT 13.2 H INR 1.3 H ABG pH ABG pCO2 ABG pO2 ABG HCO3 ABG Total CO2 ABG O2 Saturation Potassium BUN 67 H Creatinine 1.84 H Glucose 117 H POC Glucose (mg/dL) Calcium 7.7 L AST 278 H ALT 121 H Alkaline Phosphatase 155 H Albumin 3.3 L 05/14/20 05/15/20 05/15/20 23:43 00:32 05:13 RBC Hgb Hct RDW Plt Count Lymphocytes # PT INR ABG pH 7.48 H 7.51 H ABG pCO2 ABG pO2 203 H 206 H ABG HCO3 28 H 28 H ABG Total CO2 29 H 29 H ABG O2 Saturation 100.0 H 100.0 H Potassium BUN Creatinine Glucose POC Glucose (mg/dL) 113 H Calcium AST ALT Alkaline Phosphatase Albumin 05/15/20 05/15/20 05/15/20 05:30 05:30 05:30 RBC 2.93 L Hgb 8.1 L D Hct 24.9 L RDW 17.9 H Plt Count Lymphocytes # 0.3 L PT INR ABG pH ABG pCO2 ABG pO2 ABG HCO3 ABG Total CO2 ABG O2 Saturation Potassium 3.3 L BUN 65 H Creatinine 1.95 H Glucose 72 L POC Glucose (mg/dL) Calcium 8.0 L AST 204 H ALT 116 H Alkaline Phosphatase Albumin 05/15/20 12:57 RBC Hgb Hct RDW Plt Count Lymphocytes # PT INR ABG pH ABG pCO2 48 H ABG pO2 144 H ABG HCO3 29 H ABG Total CO2 31 H ABG O2 Saturation 100.0 H Potassium BUN Creatinine Glucose POC Glucose (mg/dL) Calcium AST ALT Alkaline Phosphatase Albumin - Diagnostic Findings Chest x-ray: image reviewed (Chest x-ray showed evidence of pulmonary edema, right-sided pleural effusion possibly loculated, and the right lower lobe atelectasis, difficult to rule out pneumonia.) Additional studies: Lower extremities venous Doppler was negative for DVT. Assessment and Plan Assessment: Impression: Acute hypoxic and hypercapnic respiratory failure secondary to acute on chronic diastolic congestive heart failure and chronic recurrent transudate of right- sided pleural effusion Acute on chronic kidney injury. Chronic atrial fibrillation. Valvular heart disease, aortic stenosis and mitral regurgitation. Chronic anemia History of coronary artery disease and previous PCI. History of hypothyroidism. History of GERD. Dyslipidemia. Acute toxic metabolic encephalopathy secondary to hypoxia and hypercapnia on presentation. Hypotension on presentation requiring norepinephrine, felt to be mostly secondary to sedation/propofol. Definitely doubt sepsis. Recommendation: Continue ventilatory support. Continue GI and DVT prophylaxis. Continue diuretics. Daily monitoring of electrolytes and renal profile. Daily assessment for potential weaning, patient is now on IMV and pressure support, may consider even weaning and extubation later on today if her mental status improves. If extubated patient is to be extubated to BiPAP. Continue strict I's and O's. Discontinue norepinephrine is possible. Placed on bronchodilators, not clear whether the patient has some history of underlying COPD. Nutritional support, consider enteral feeding if the patient requires to be on mechanical ventilation for another 24 hours. We'll continue to follow. Patient is critically ill. Will remain in the ICU Time with Patient: Greater than 30
--- NOTE | 2020-05-15 15:27 | XR ---
EXAMINATION: XR chest 2V DATE AND TIME: 05/14/2020 7:51 PM CLINICAL INDICATION: PHH; altered mental status TECHNIQUE: Departmental protocol COMPARISON: 01/07/2020 FINDINGS: Pacemaker noted. The lungs demonstrate a fine reticular pattern of increased density throughout the lungs symmetricall y, with pulmonary venous prominence and indistinctness, consistent with interstitial phase pulmonary edema. The pleural spaces are positive for a large, new right pleural effusion occupying approximately one h [facility] of the right hemithorax. In addition, a small left pleural effusion is evident. The cardiac silhouette appears mildly enlarged. The skeletal structures and soft tissues are negative for acute findings. IMPRESSION: Large new right pleural effusion, with evidence of interstitial phase pulmonary edema small left pleu ral effusion and mildly enlarged cardiac silhouette.
[2020-05-15] MEDS: IPRATROPIUM-ALBUTEROL 3 ML NEB INHALATION SCH ×2 (16:10→19:21)
[2020-05-15] MEDS ORDERED: LORazepam 2 MG/ML INJ IV PRN (17:47)
[2020-05-15 18:13] LABS: Glucose,Whole Blood 82 mg/dL (75-99)
[2020-05-15] MEDS: SPIRONOLACTONE 25 MG TAB PO SCH (20:39)
[2020-05-16 00:09] LABS: Glucose,Whole Blood 86 mg/dL (75-99)
[2020-05-16] MEDS: FUROSEMIDE 10 MG/ML 4 ML VIAL IV SCH ×4 (02:37→23:48)
[2020-05-16 05:16] LABS: ABG Base Excess 5.4 mmol/L; ABG HCO3 31 mmol/L (21-25); ABG Oxygen Saturation 99.9 % (94-97); ABG PCO2 53 mmHg (35-45); ABG PH 7.37 (7.35-7.45); ABG PO2 141 mmHg (83-108); ABG TCO2 32 mmol/L (19-24); Allen Test Performed? Yes
[2020-05-16 05:30] LABS: Anisocytosis Slight; HCT 25.5 % (34.0-46.0); HGB 8.1 gm/dL (11.4-16.0); Hypochromasia Slight; MCH 27.3 pg (25.0-35.0); MCHC 31.9 g/dL (31.0-37.0); MCV 85.6 fL (80.0-100.0); Platelet Count 125 k/uL (150-450); RBC 2.97 m/uL (3.80-5.40); RDW 18.3 % (11.5-15.5); WBC 6.3 k/uL (3.8-10.6)
[2020-05-16 05:49] LABS: Calcium 7.9 mg/dL (8.4-10.2); Magnesium 2.3 mg/dL (1.6-2.3); Potassium 3.6 mmol/L (3.5-5.1)
[2020-05-16 06:21] LABS: Glucose,Whole Blood 85 mg/dL (75-99)
--- NOTE | 2020-05-16 06:37 | P.PN ---
Subjective Progress Note Date: 05/16/20 Principal diagnosis: Heart failure with preserved ejection fraction exacerbation This is an 89-year-old female patient with a past medical history significant for chronic diastolic congestive heart failure as well as permanent atrial fibrillation as well as permanent pacemaker was admitted to the hospital with a change in mental status and she was intubated and placed on mechanical ventilation to protect her airways. She was also diagnosed with heart failure exacerbation secondary to diastole dysfunction. The patient was seen today May 16 2020. She remains intubated. She is hemodynamically stable. She potentially can be extubated later on today. She is in atrial fibrillation was controlled heart rate. She continues to be on Lasix. The creatinine continues to be stable. She is on oral anticoagulation. The echo revealed normal left ventricular systolic function was mild aortic stenosis. Objective - Vital Signs Vital signs: Vital Signs Temp 93.4 F L 05/16/20 04:00 Pulse 59 L 05/16/20 06:00 Resp 10 L 05/16/20 06:00 BP 108/46 05/16/20 06:00 Pulse Ox 98 05/16/20 06:00 Intake & Output 05/15/20 05/15/20 05/16/20 06:59 18:59 06:59 Intake Total 141.527 435.327 220 Output Total 760 531 1327 Balance -318.473 -484.673 -900 Weight 77 kg 71.1 kg Intake: IV 140 240 220 0.9 @ 20 mL/hr 140 240 220 Intake, IV Titration 1.527 195.327 Amount Norepinephrine 4 mg In 145.712 Sodium Chloride 0.9% 250 ml @ 0.05 MCG/KG/MIN 14. 669 mls/hr IV .[id number] [facility] Rx#:[id number] propofoL 500 mg In Empty 1.142 Bag 1 bag @ Titrate IV . Q0M ONE Rx#:[id number] propofoL 500 mg In Empty 0.385 49.615 Bag 1 bag @ Titrate IV . Q0M [facility] Rx#:[id number] Output: Urine 545 124 9948 Other: Voiding Method Indwelling Catheter Indwelling Catheter Indwelling Catheter - Constitutional General appearance: Present: no acute distress - Respiratory Respiratory: bilateral: CTA - Cardiovascular Rhythm: regular Heart sounds: normal: S1, S2 - Labs CBC & Chem 7: 05/16/20 04:39 05/16/20 04:39 Labs: Abnormal Lab Results - Last 24 Hours (Table) 05/15/20 05/15/20 05/16/20 Range/Units 05:30 12:57 04:39 RBC 2.97 L (3.80-5.40) m/uL Hgb 8.1 L (11.4-16.0) gm/dL Hct 25.5 L (34.0-46.0) % RDW 18.3 H (11.5-15.5) % Plt Count 125 L (150-450) k/uL ABG pCO2 48 H (35-45) mmHg ABG pO2 144 H (83-108) mmHg ABG HCO3 29 H (21-25) mmol/L ABG Total CO2 31 H (19-24) mmol/L ABG O2 Saturation 100.0 H (94-97) % Carbon Dioxide (22-30) mmol/L BUN (7-17) mg/dL Creatinine (0.52-1.04) mg/dL Calcium (8.4-10.2) mg/dL AST 204 H (14-36) U/L ALT 116 H (4-34) U/L 05/16/20 05/16/20 Range/Units 04:39 05:13 RBC (3.80-5.40) m/uL Hgb (11.4-16.0) gm/dL Hct (34.0-46.0) % RDW (11.5-15.5) % Plt Count (150-450) k/uL ABG pCO2 53 H (35-45) mmHg ABG pO2 141 H (83-108) mmHg ABG HCO3 31 H (21-25) mmol/L ABG Total CO2 32 H (19-24) mmol/L ABG O2 Saturation 99.9 H (94-97) % Carbon Dioxide 32 H (22-30) mmol/L BUN 61 H (7-17) mg/dL Creatinine 1.92 H (0.52-1.04) mg/dL Calcium 7.9 L (8.4-10.2) mg/dL AST (14-36) U/L ALT (4-34) U/L Microbiology - Last 24 Hours (Table) 05/15/20 01:00 Blood Culture - Preliminary Blood No Growth after 24 hours 05/14/20 22:22 Gram Stain - Preliminary Sputum Sputum Culture - Preliminary Assessment and Plan Assessment: Assessment #1 change in mental status of unknown etiology #2 heart failure with preserved ejection fraction exacerbation #3 permanent atrial fibrillation was controlled heart rate #4 known permanent pacemaker implantation #5 possible underlying pneumonia #6 multiple comorbid conditions Plan #1 continue IV Lasix #2 continue monitor the kidney function and electrolytes #3 the echo was reviewed with and showed preserved left ventricular systolic function was mild aortic stenosis #4 continue oral anticoagulation
--- NOTE | 2020-05-16 06:41 | XR ---
EXAMINATION TYPE: XR chest 1V portable DATE OF EXAM: 05/16/2020 HISTORY: Shortness of breath. COMPARISON: 05/15/2020 TECHNIQUE: Single view of the chest is submitted. FINDINGS: Demonstrated are scattered senescent parenchymal change. Patchy right perihilar and right basilar infiltrate. Basilar effusions noted. The heart is stable. Hilar and mediastinal structures are within normal limits. Degenerative changes are seen of the dorsal spine. IMPRESSION: 1. Patchy right perihilar and right basilar infiltrate. Basilar effusions noted.
[2020-05-16] MEDS: LEVOTHYROXINE 112 MCG TAB PO SCH (06:47)
[2020-05-16] MEDS: IPRATROPIUM-ALBUTEROL 3 ML NEB INHALATION SCH ×4 (08:14→21:10)
[2020-05-16] MEDS ORDERED: POTASSIUM BICARBONATE/CIT AC 20 MEQ TABLET.EFF PO ONE (09:49)
--- NOTE | 2020-05-16 09:56 | P.PN ---
Subjective Progress Note Date: 05/16/20 (delayed charting seen at 0805) Principal diagnosis: altered mentation Patient is an 89-year-old female with known history of diastolic congestive heart failure with ejection fraction 55-60%, mild aortic stenosis, atrial fibrillation, GERD, and multiple other comorbid conditions who presented to the emergency department via EMS secondary to altered mental status and d ifficulty breathing. She had received her Covid vaccine second dose one day prior. On arrival to the ER she was noted be hypothermic with a rectal temperature of 85, initial blood pressure was 148/81 pulse 72, and respiratory rate 22. Initial laboratory analysis showed platelet count of 121, hemoglobin 11 which is above her baseline, BUN 67, creatinine 1.84, AST 278, ALT 121. Covid testing was negative. Chest x-ray showed congestive heart failure with right-sided pleural effusion and pulmonary interstitial edema. In the ER she became more confused with increasing respiratory distress and was subsequently intubated. She was admitted to the ICU for acute exacerbation of congestive heart failure with acute hypoxic respiratory failure. She was started on IV Lasix. She did have hypotension and required a Levophed drip. She also required a warming blanket secondary to hypothermia. Critical care and cardiology were consulted. Cardiology agreed with obtaining a repeat echo and continuing Lasix. She was able to come off 05/15, propofol was held but she was not following commands. She continued to have problems with hypothermia. Patient seen and examined at bedside. She remains intubated and in the ICU off propofol for almost 24 hours, per nursing was following commands overnight. Patient opens eyes but does not follow commands. General: Ill-appearing, no distress, appears at stated age Derm: warm, dry Head: atraumatic, normocephalic, symmetric Eyes: EOMI, no lid lag, anicteric sclera Mouth: no lip lesion, mucus membranes dry Cardiovascular: S1-S2 irregular, positive posterior tibial pulse bilateral, Lungs: Coarse breath sounds bilateral, no rhonchi, no rales , no accessory muscle use, on vent Abdominal: soft, nontender to palpation, no guarding, no appreciable organomegaly Ext: no gross muscle atrophy, 2+ lower extremity edema left greater than right, no contractures Neuro: Eyes open, PERRL, breathing over then even Psych: Awake, intermittently following commands Acute exacerbation of diastolic congestive heart failure with ejection fraction 55-60%, Right pleural effusion with acute hypoxic respiratory failure - Lasix IV q8H - Cardio recs - Coreg, Aldactone - not chronically on ACEI - Pulm recs, went vent as able - strict I and O, daily weights Toxic metabolic encephalopathy - Supportive care - Not following commands, repeat head CT to ruleout stroke as unable to get MRI while on vent Hypothermia - undetermined cause - TSH normal - AM cortisol FREDO on CKD III -Likely secondary to hepatorenal syndrome - Cr stable - Baseline creatinine 1.5-1.7 -Follow creatinine carefully with the diuresis Chronic A. fib -Continue anticoagulation with Eliquis -Coreg Anemia - at baseline - follow CBC - follow in the outpatient setting Chronic: Coronary artery disease status post PCI Dyslipidemia GERD Hypothyroidism Hypokalemia, resolved Hypotnesion, resolved DVT prophylaxis: eliquis Discussed with: patient, nursing Anticipated discharge: undetermined Anticipated discharge place: undetermined A total of 35 minutes was spent on the care of this complex patient more than 50% of the time was spent in counseling and care coordination. Objective - Vital Signs Vital signs: Vital Signs Temp 95.5 F L 05/16/20 08:00 Pulse 60 05/16/20 08:42 Resp 12 05/16/20 08:00 BP 117/43 05/16/20 08:00 Pulse Ox 99 05/16/20 08:00 Intake & Output 05/15/20 05/16/20 05/16/20 18:59 06:59 18:59 Intake Total 435.327 220 20 Output Total 920 1120 300 Balance -484.673 -900 -280 Weight 71.1 kg Intake: IV 240 220 20 0.9 @ 20 mL/hr 240 220 20 Intake, IV Titration 195.327 Amount Norepinephrine 4 mg In 145.712 Sodium Chloride 0.9% 250 ml @ 0.05 MCG/KG/MIN 14. 669 mls/hr IV .[id number] [facility] Rx#:[id number] propofoL 500 mg In Empty 49.615 Bag 1 bag @ Titrate IV . Q0M [facility] Rx#:[id number] Output: Urine 920 1120 300 Other: Voiding Method Indwelling Catheter Indwelling Catheter Indwelling Catheter - Labs CBC & Chem 7: 05/16/20 04:39 05/16/20 04:39 Labs: Abnormal Lab Results - Last 24 Hours (Table) 05/15/20 05/16/20 05/16/20 Range/Units 12:57 04:39 04:39 RBC 2.97 L (3.80-5.40) m/uL Hgb 8.1 L (11.4-16.0) gm/dL Hct 25.5 L (34.0-46.0) % RDW 18.3 H (11.5-15.5) % Plt Count 125 L (150-450) k/uL ABG pCO2 48 H (35-45) mmHg ABG pO2 144 H (83-108) mmHg ABG HCO3 29 H (21-25) mmol/L ABG Total CO2 31 H (19-24) mmol/L ABG O2 Saturation 100.0 H (94-97) % Carbon Dioxide 32 H (22-30) mmol/L BUN 61 H (7-17) mg/dL Creatinine 1.92 H (0.52-1.04) mg/dL Calcium 7.9 L (8.4-10.2) mg/dL 05/16/20 Range/Units 05:13 RBC (3.80-5.40) m/uL Hgb (11.4-16.0) gm/dL Hct (34.0-46.0) % RDW (11.5-15.5) % Plt Count (150-450) k/uL ABG pCO2 53 H (35-45) mmHg ABG pO2 141 H (83-108) mmHg ABG HCO3 31 H (21-25) mmol/L ABG Total CO2 32 H (19-24) mmol/L ABG O2 Saturation 99.9 H (94-97) % Carbon Dioxide (22-30) mmol/L BUN (7-17) mg/dL Creatinine (0.52-1.04) mg/dL Calcium (8.4-10.2) mg/dL Microbiology - Last 24 Hours (Table) 05/15/20 01:00 Blood Culture - Preliminary Blood No Growth after 24 hours 05/14/20 22:22 Gram Stain - Preliminary Sputum Sputum Culture - Preliminary
[2020-05-16] MEDS: PANTOPRAZOLE 40 MG/10 ML VIAL IVP SCH (10:21)
[2020-05-16] MEDS: NOREPINEPHRINE 4 MG in SODIUM CHLORIDE 0.9% 250 ML IV SCH (12:00)
[2020-05-16 12:19] LABS: Glucose,Whole Blood 72 mg/dL (75-99)
[2020-05-16 12:43] LABS: Allen Test Performed? Yes
[2020-05-16 12:44] LABS: ABG Base Excess 6.7 mmol/L; ABG HCO3 31 mmol/L (21-25); ABG PCO2 46 mmHg (35-45); ABG PH 7.43 (7.35-7.45); ABG PO2 82 mmHg (83-108); ABG TCO2 32 mmol/L (19-24)
--- NOTE | 2020-05-16 13:07 | P.PN ---
Subjective Progress Note Date: 05/16/20 Principal diagnosis: Acute hypoxic and hypercapnic respiratory failure, secondary to acute on chronic diastolic congestive heart failure and right-sided pleural effusion This is an 89-year-old female with history of multiple medical problems including chronic diastolic congestive heart failure, valvular heart disease, coronary artery disease, chronic atrial fibrillation, history of pacemaker implantation, patient was brought into the ER last night with mostly symptoms of shortness of breath and change in mental status. Patient was quite confused as per EMS, upon arrival, patient was struggling to breathe. And she had an ABG that showed acute hypoxic and hypercapnic respiratory failure as I was told by the ER physician on the phone. However could not locate the actual ABG. Patient was intubated upon arrival and her pCO2 was supposedly in the high 80s with low pH. Patient was placed on diuretics and bronchodilators, her chest x- ray clearly affected evidence of congestive heart failure, and she had a chronic recurrent right-sided pleural effusion that was present in the past drained twice in the last year, and the fluid was transudative in nature. Her BNP level was elevated. CT of the head showed no evidence of acute abnormality. Patient had previous echocardiogram showing normal LV function, mild aortic stenosis, and moderate mitral regurgitation. Patient was placed on diuretics, chest x-ray showed definite improvement this morning. This morning ABG on 50% FiO2 showed a pO2 of 206, pCO2 of 35, pH of 7.51. Propofol was placed on hold, patient was given a trial of IMV and pressure support with IMV of 8 and pressure support of 8, repeat ABG in 1 hour showed a pO2 of 144 pCO2 of 48 pH of 7.39 this was on 40% FiO2. However the patient was not following instructions, she was noted to be obtunded by the nurse taking care of the patient, and not quite ready for weaning although she had excellent ABG. Advised to continue to hold sedation advised to continue pressure support and IMV mode of mechanical ventilation. And will readdress weaning later on today. In the meantime we have continue diuretics and bronchodilators Patient was reevaluated today on 05/16/2020, remains in the ICU, intubated and mechanically ventilated., Patient could not be extubated yesterday because of her mental status, did not awake enough to follow simple instructions, then I decided to keep her overnight on IMV mode with a rate of 10, pressure support of 8, FiO2 at 40% and PEEP of 5. Patient remains on diuretics for her underlying congestive heart failure, ABG this morning showed a pO2 of 141 pCO2 of 53 pH of 7.37. Patient has been off sedation for the last 24 hours, she is definitely awake today, follows simple instructions, went ahead and recommended that she goes on pressure support of 12 initially and then changed to pressure support of 8/CPAP, and I plan to extubate the patient sometime later today if her gases on pressure support of 8 and CPAP are reasonable to BiPAP with IPAP of 12 and EPAP of 5. In the meantime I recommended that we continue with fluids at KVO and recommended Lasix at 40 mg IV push every 8 hours chest x-ray continues to show evidence of mild edema and small right-sided pleural effusion. Obviously the effusion is not large enough to affect her oxygenation, hence will not drain the pleural effusion at this point while she is on mechanical ventilation especially if she is already responding to diuretics. We have known from previous thoracentesis procedures that this fluid was transudative in nature. Patient had repeat ABG after 1 hour of CPAP and pressure support of 8, and ABG showed a pO2 of 82 pCO2 of 46 and pH of 7.43, this was on 30% FiO2, hence I would proceed with extubating this patient today to BiPAP, and eventually transitioned to nasal cannula. Objective - Vital Signs Vital signs: Vital Signs Temp 98.6 F 05/16/20 12:00 Pulse 61 05/16/20 12:00 Resp 12 05/16/20 12:00 BP 115/43 05/16/20 12:00 Pulse Ox 95 05/16/20 12:00 Intake & Output 05/15/20 05/16/20 05/16/20 18:59 06:59 18:59 Intake Total 435.327 220 100 Output Total 920 1120 700 Balance -484.673 -900 -600 Weight 71.1 kg 71.1 kg Intake: IV 240 220 100 0.9 @ 20 mL/hr 240 220 100 Intake, IV Titration 195.327 Amount Norepinephrine 4 mg In 145.712 Sodium Chloride 0.9% 250 ml @ 0.05 MCG/KG/MIN 14. 669 mls/hr IV .[id number] [facility] Rx#:[id number] propofoL 500 mg In Empty 49.615 Bag 1 bag @ Titrate IV . Q0M [facility] Rx#:[id number] Output: Urine 920 1120 700 Other: Voiding Method Indwelling Catheter Indwelling Catheter Indwelling Catheter - Exam General: Revealed a 89-year-old female, frail looking, in no distress, on mechanical ventilation, off sedation for the last 24 hours, awake, follows all simple instructions. Head: atraumatic, normocephalic Eyes: PERRLA, EOMI, nonicteric. Mouth: Endotracheal tube and orogastric tube are intact. Dry mucous membranes noted. Cardiovascular: Irregular irregular rhythm, 2/6 systolic murmur thought the precordium. Lungs: Symmetrical chest expansion, minimal crackles mostly at the right base.. Abdominal: Soft nontender no megaly no rebound no guarding. Ext: No clubbing, left lower extremities seem to be a bit more swollen than the right lower extremity, warm to touch, good pulses bilaterally. Neuro: Awake, follows simple instructions, seems to be appropriate. Psych: Normal mood affect and relatively normal mental status Skin: No rashes - Labs CBC & Chem 7: 05/16/20 04:39 05/16/20 04:39 Labs: Abnormal Lab Results - Last 24 Hours (Table) 05/15/20 05/16/20 05/16/20 Range/Units 12:57 04:39 04:39 RBC 2.97 L (3.80-5.40) m/uL Hgb 8.1 L (11.4-16.0) gm/dL Hct 25.5 L (34.0-46.0) % RDW 18.3 H (11.5-15.5) % Plt Count 125 L (150-450) k/uL ABG pCO2 48 H (35-45) mmHg ABG pO2 144 H (83-108) mmHg ABG HCO3 29 H (21-25) mmol/L ABG Total CO2 31 H (19-24) mmol/L ABG O2 Saturation 100.0 H (94-97) % Carbon Dioxide 32 H (22-30) mmol/L BUN 61 H (7-17) mg/dL Creatinine 1.92 H (0.52-1.04) mg/dL POC Glucose (mg/dL) (75-99) mg/dL Calcium 7.9 L (8.4-10.2) mg/dL 05/16/20 05/16/20 05/16/20 Range/Units 05:13 12:17 12:41 RBC (3.80-5.40) m/uL Hgb (11.4-16.0) gm/dL Hct (34.0-46.0) % RDW (11.5-15.5) % Plt Count (150-450) k/uL ABG pCO2 53 H 46 H (35-45) mmHg ABG pO2 141 H 82 L (83-108) mmHg ABG HCO3 31 H 31 H (21-25) mmol/L ABG Total CO2 32 H 32 H (19-24) mmol/L ABG O2 Saturation 99.9 H 98.0 H (94-97) % Carbon Dioxide (22-30) mmol/L BUN (7-17) mg/dL Creatinine (0.52-1.04) mg/dL POC Glucose (mg/dL) 72 L (75-99) mg/dL Calcium (8.4-10.2) mg/dL Microbiology - Last 24 Hours (Table) 05/15/20 01:00 Blood Culture - Preliminary Blood No Growth after 24 hours Assessment and Plan Assessment: Impression: Acute hypoxic and hypercapnic respiratory failure secondary to acute on chronic diastolic congestive heart failure and chronic recurrent transudate of right- sided pleural effusion Acute on chronic kidney injury. Chronic atrial fibrillation. Valvular heart disease, aortic stenosis and mitral regurgitation. Chronic anemia History of coronary artery disease and previous PCI. History of hypothyroidism. History of GERD. Dyslipidemia. Acute toxic metabolic encephalopathy secondary to hypoxia and hypercapnia on presentation. Hypotension on presentation requiring norepinephrine, felt to be mostly secondary to sedation/propofol. Definitely doubt sepsis. Recommendation: Patient was changed from IMV/pressure support to pressure support of 12/CPAP, and later to pressure support of 8/CPAP, follow-up ABG after 1 hour showed excellent gases, hence the patient was extubated to BiPAP. IPAP of 12 and EPAP of 5 and FiO2 of 30% plan to transition this to a nasal cannula later today. Continue GI and DVT prophylaxis. Continue diuretics. Daily monitoring of electrolytes and renal profile. Continue strict I's and O's. Continue bronchodilators, not clear whether the patient has some history of underlying COPD. Advance diet as tolerated after extubation We'll continue to follow. Critical care time is over 30 minutes. Patient remains critically ill, and we'll continue to monitor in the ICU for the next 24 hours even after extubation. Time with Patient: Greater than 30
[2020-05-16] MEDS: ISOSORBIDE MONONITRATE ER 30 MG TAB.ER.24H PO SCH (13:25)
[2020-05-16] MEDS: CHLORHEXIDINE GLUCONATE 15 ML CUP MUCOUS MEM SCH (13:25)
[2020-05-16] MEDS: carvediloL 3.125 MG TAB PO SCH ×2 (13:25→21:22)
[2020-05-16] MEDS: APIXABAN 2.5 MG TABLET PO SCH ×2 (13:25→21:21)
[2020-05-16] MEDS: PRAVASTATIN SODIUM 40 MG TAB PO SCH (13:25)
--- NOTE | 2020-05-16 16:47 | CT ---
EXAMINATION TYPE: CT brain wo con DATE OF EXAM: 05/16/2020 COMPARISON: 05/14/2020 HISTORY: Post extubation CT DLP: 1066.4 mGycm Automated exposure control for dose reduction was used. There is cerebral cortical atrophy. There is no mass effect nor midline shift. There is no sign of in tracranial hemorrhage. There is mild hypodensity in the white matter around the occipital horns of th e lateral ventricles. Calvarium is intact. Skull base is intact. There is normal aeration of the mast oid sinuses. IMPRESSION: Cerebral atrophy. Occipital chronic small vessel ischemia. No acute intracranial abnormality. No [facility].
[2020-05-16 18:17] LABS: Glucose,Whole Blood 79 mg/dL (75-99)
[2020-05-16] MEDS: SPIRONOLACTONE 25 MG TAB PO SCH (21:21)
[2020-05-16] MEDS: MORPHINE SULFATE 2 MG/ML SYRINGE IVP PRN (23:47)
[2020-05-17 04:49] LABS: Anisocytosis Slight; HCT 25.3 % (34.0-46.0); HGB 8.2 gm/dL (11.4-16.0); Hypochromasia Moderate; MCH 27.6 pg (25.0-35.0); MCHC 32.2 g/dL (31.0-37.0); MCV 85.6 fL (80.0-100.0); Mean Platelet Volume 7.6; Platelet Count 111 k/uL (150-450); RBC 2.96 m/uL (3.80-5.40); RDW 18.3 % (11.5-15.5); WBC 6.4 k/uL (3.8-10.6)
[2020-05-17] MEDS: MORPHINE SULFATE 2 MG/ML SYRINGE IVP PRN (05:27)
[2020-05-17] MEDS: LEVOTHYROXINE 112 MCG TAB PO SCH (05:28)
[2020-05-17] MEDS: NOREPINEPHRINE 4 MG in SODIUM CHLORIDE 0.9% 250 ML IV SCH ×2 (07:11→23:36)
--- NOTE | 2020-05-17 07:24 | XR ---
EXAMINATION TYPE: XR chest 1V portable DATE OF EXAM: 05/17/2020 HISTORY: Shortness of breath. COMPARISON: 05/16/2020 TECHNIQUE: Single view of the chest is submitted. FINDINGS: Demonstrated are scattered senescent parenchymal change. Persistent cardiomegaly basilar effusions pulmonary venous congestion scattered infiltrates. Hilar and mediastinal structures are within normal limits. Degenerative changes are seen of the dorsal spine. IMPRESSION: 1. Findings suggest underlying congestive failure. Infiltrates of other etiology not excluded. [place] nued progress studies are advised.
--- NOTE | 2020-05-17 07:33 | P.PN ---
Subjective Progress Note Date: 05/17/20 Principal diagnosis: Heart failure with preserved ejection fraction exacerbation This is an 89-year-old female patient with a past medical history significant for chronic diastolic congestive heart failure as well as permanent atrial fibrillation as well as permanent pacemaker was admitted to the hospital with a change in mental status and she was intubated and placed on mechanical ventilation to protect her airways. She was also diagnosed with heart failure exacerbation secondary to diastole dysfunction. The patient was seen today May 172020. She was extubated yesterday. Clinically she is doing better. She is hemodynamically stable but she continues to be in atrial fibrillation was controlled heart rate. She is on oral anticoagulation. She continues to be on Lasix IV and she has been diuresing very well. The echo revealed normal LV function with mild aortic stenosis. The chest x-ray continues to show findings consistent with heart failure. The h emoglobin this morning it is stable. The kidney function tests are not back as of yet. Objective - Vital Signs Vital signs: Vital Signs Temp 96.8 F L 05/17/20 04:00 Pulse 59 L 05/17/20 07:00 Resp 14 05/17/20 07:00 BP 117/52 05/17/20 07:00 Pulse Ox 98 05/17/20 07:00 Intake & Output 05/16/20 05/17/20 05/17/20 18:59 06:59 18:59 Intake Total 240 720 20 Output Total 1800 1420 60 Balance -1560 -700 -40 Weight 71.1 kg 69 kg Intake: IV 240 220 20 0.9 @ 20 mL/hr 240 220 20 Oral 500 Output: Urine 1800 1420 60 Other: Voiding Method Indwelling Catheter Indwelling Catheter - Constitutional General appearance: Present: no acute distress - Respiratory Respiratory: bilateral: CTA - Cardiovascular Rhythm: irregularly irregular Heart sounds: normal: S1, S2 - Labs CBC & Chem 7: 05/17/20 04:31 05/16/20 04:39 Labs: Abnormal Lab Results - Last 24 Hours (Table) 05/16/20 05/16/20 05/17/20 Range/Units 12:17 12:41 04:31 RBC 2.96 L (3.80-5.40) m/uL Hgb 8.2 L (11.4-16.0) gm/dL Hct 25.3 L (34.0-46.0) % RDW 18.3 H (11.5-15.5) % Plt Count 111 L (150-450) k/uL ABG pCO2 46 H (35-45) mmHg ABG pO2 82 L (83-108) mmHg ABG HCO3 31 H (21-25) mmol/L ABG Total CO2 32 H (19-24) mmol/L ABG O2 Saturation 98.0 H (94-97) % POC Glucose (mg/dL) 72 L (75-99) mg/dL Microbiology - Last 24 Hours (Table) 05/15/20 01:00 Blood Culture - Preliminary Blood No Growth after 48 hours Assessment and Plan Assessment: Assessment #1 change in mental status of unknown etiology #2 heart failure with preserved ejection fraction exacerbation #3 permanent atrial fibrillation was controlled heart rate #4 known permanent pacemaker implantation #5 possible underlying pneumonia #6 multiple comorbid conditions Plan #1 continue IV Lasix #2 continue monitor the kidney function and electrolytes #3 the echo was reviewed with and showed preserved left ventricular systolic function was mild aortic stenosis #4 continue oral anticoagulation #5 follow-up with the patient
--- NOTE | 2020-05-17 07:52 | P.PN ---
Subjective Progress Note Date: 05/17/20 This is an 89-year-old female with history of multiple medical problems including chronic diastolic congestive heart failure, valvular heart disease, coronary artery disease, chronic atrial fibrillation, history of pacemaker implantation, patient was brought into the ER last night with mostly symptoms of shortness of breath and change in mental status. Patient was quite confused as per EMS, upon arrival, patient was struggling to breathe. And she had an ABG that showed acute hypoxic and hypercapnic respiratory failure as I was told by the ER physician on the phone. However could not locate the actual ABG. Patient was intubated upon arrival and her pCO2 was supposedly in the high 80s with low pH. Patient was placed on diuretics and bronchodilators, her chest x- ray clearly affected evidence of congestive heart failure, and she had a chronic recurrent right-sided pleural effusion that was present in the past drained twice in the last year, and the fluid was transudative in nature. Her BNP level was elevated. CT of the head showed no evidence of acute abnormality. Patient had previous echocardiogram showing normal LV function, mild aortic stenosis, and moderate mitral regurgitation. Patient was placed on diuretics, chest x-ray showed definite improvement this morning. This morning ABG on 50% FiO2 showed a pO2 of 206, pCO2 of 35, pH of 7.51. Propofol was placed on hold, patient was given a trial of IMV and pressure support with IMV of 8 and pressure support of 8, repeat ABG in 1 hour showed a pO2 of 144 pCO2 of 48 pH of 7.39 this was on 40% FiO2. However the patient was not following instructions, she was noted to be obtunded by the nurse taking care of the patient, and not quite ready for weaning although she had excellent ABG. Advised to continue to hold sedation advised to continue pressure support and IMV mode of mechanical ventilation. And will readdress weaning later on today. In the meantime we have continue diuretics and bronchodilators Patient was reevaluated today on 05/16/2020, remains in the ICU, intubated and mechanically ventilated., Patient could not be extubated yesterday because of her mental status, did not awake enough to follow simple instructions, then I decided to keep her overnight on IMV mode with a rate of 10, pressure support of 8, FiO2 at 40% and PEEP of 5. Patient remains on diuretics for her underlying congestive heart failure, ABG this morning showed a pO2 of 141 pCO2 of 53 pH of 7.37. Patient has been off sedation for the last 24 hours, she is definitely awake today, follows simple instructions, went ahead and recommended that she goes on pressure support of 12 initially and then changed to pressure support of 8/CPAP, and I plan to extubate the patient sometime later today if her gases on pressure support of 8 and CPAP are reasonable to BiPAP with IPAP of 12 and EPAP of 5. In the meantime I recommended that we continue with fluids at KVO and recommended Lasix at 40 mg IV push every 8 hours chest x-ray continues to show evidence of mild edema and small right-sided pleural effusion. Obviously the effusion is not large enough to affect her oxygenation, hence will not drain the pleural effusion at this point while she is on mechanical ventilation especially if she is already responding to diuretics. We have known from previous thoracentesis procedures that this fluid was transudative in nature. Patient had repeat ABG after 1 hour of CPAP and pressure support of 8, and ABG showed a pO2 of 82 pCO2 of 46 and pH of 7.43, this was on 30% FiO2, hence I would proceed with extubating this patient today to BiPAP, and eventually transitioned to nasal cannula. 05/17/2020, the patient is being seen in the ICU for a follow-up. The patient has been extubated and currently she is on 2 L of oxygen by nasal cannula. Initially there were plans to put her on a BiPAP postextubation and ultimately the patient did not require BiPAP and she was placed on oxygen by nasal cannula. She is doing well. She is resting comfortably. Head of the bed elevated is around 20. No major edema lower extremities. She still has a Esparza cath in place. She is on Lasix 40 mg every 8 hours and she is in a negative fluid balance. Morning chest x-ray still showing pulmonary edema along with that there is a right-sided pleural effusion. Nevertheless, the patient is responding well to diuretics. She is awake. She is conscious. She was able to tolerate some diet yesterday. She drank some soup. No chest pain. No angina. No palpitation. No cardiac arrhythmias. Her cardiac rhythm is the paced and there is an underlying atrial fibrillation the patient was restarted back on Eliquis. CAT scan of the brain was done yesterday and there was no acute abnormalities as there was concern that she would have had a damage because of her recurrent falls. Nevertheless, the CAT scan of the brain came back negative and the patient was kept on Eliquis as long-term anticoagulants. She is able to converse pH is following commands. She is answering questions. No aspiration. She was hypothermic and his temperature is up to 96.5 this morning. The fluid balance is -2.2 L. Objective - Vital Signs Vital signs: Vital Signs Temp 96.8 F L 05/17/20 04:00 Pulse 59 L 05/17/20 07:00 Resp 14 05/17/20 07:00 BP 117/52 05/17/20 07:00 Pulse Ox 98 05/17/20 07:00 Intake & Output 05/16/20 05/17/20 05/17/20 18:59 06:59 18:59 Intake Total 240 720 20 Output Total 1800 1420 60 Balance -1560 -700 -40 Weight 71.1 kg 69 kg Intake: IV 240 220 20 0.9 @ 20 mL/hr 240 220 20 Oral 500 Output: Urine 1800 1420 60 Other: Voiding Method Indwelling Catheter Indwelling Catheter - Exam General: Revealed a 89-year-old female, frail looking, in no distress, on 2 L of oxygen by nasal cannula Neck is supple and the patient is positive JVDs and there is no goiter or neck masses Head: atraumatic, normocephalic Eyes: PERRLA, EOMI, nonicteric. Mouth: Endotracheal tube and orogastric tube are intact. Dry mucous membranes noted. Cardiovascular: Irregular irregular rhythm, 2/6 systolic murmur thought the precordium. Lungs: Symmetrical chest expansion, minimal crackles mostly at the right base.. There is diminished breath on the right lung base consistent with pleural effusion Abdominal: Soft nontender no megaly no rebound no guarding. Ext: No clubbing, left lower extremities seem to be a bit more swollen than the right lower extremity, warm to touch, good pulses bilaterally. Neuro: Awake, and alert and oriented 3, she has generalized weakness Psych: Normal mood affect and relatively normal mental status Skin: No rashes - Labs CBC & Chem 7: 05/17/20 04:31 05/16/20 04:39 Labs: Abnormal Lab Results - Last 24 Hours (Table) 05/16/20 05/16/20 05/17/20 Range/Units 12:17 12:41 04:31 RBC 2.96 L (3.80-5.40) m/uL Hgb 8.2 L (11.4-16.0) gm/dL Hct 25.3 L (34.0-46.0) % RDW 18.3 H (11.5-15.5) % Plt Count 111 L (150-450) k/uL ABG pCO2 46 H (35-45) mmHg ABG pO2 82 L (83-108) mmHg ABG HCO3 31 H (21-25) mmol/L ABG Total CO2 32 H (19-24) mmol/L ABG O2 Saturation 98.0 H (94-97) % POC Glucose (mg/dL) 72 L (75-99) mg/dL Microbiology - Last 24 Hours (Table) 05/15/20 01:00 Blood Culture - Preliminary Blood No Growth after 48 hours Assessment and Plan Plan: 1 Acute hypoxic and hypercapnic respiratory failure secondary to acute on chronic diastolic congestive heart failure and chronic recurrent transudate of right-sided pleural effusion patient required brief intubation for a total of 48 hours and ultimately she was extubated to 2 L of oxygen by nasal cannula. Chest x-ray still showing pulmonary edema/congestion in addition to a right-sided pleural effusion. Nevertheless, the patient is responding nicely to diuretics and she is a negative fluid balance of 2.2 L. 2 Acute on chronic kidney injury. No plans for thoracentesis for now as long as the patient is still responding to diuretics. The patient has chronic kidney disease. 3 Chronic atrial fibrillation. on anticoagulation with Eliquis, history of per manent pacemaker insertion 4 Valvular heart disease, aortic stenosis and mitral regurgitation and secondary pulmonary hypertension 5 Chronic anemia 6 History of coronary artery disease and previous PCI. 7 History of hypothyroidism 8 History of GERD. 9 Dyslipidemia. 10 Acute toxic metabolic encephalopathy secondary to hypoxia and hypercapnia on presentation. 11 Hypotension on presentation requiring norepinephrine, felt to be mostly secondary to sedation/propofol. Definitely doubt sepsis. 12 Chronic Right pleural effusion 13 Coronary artery disease with previous PCI to RCA 14 Hypertension 15 Hyperlipidemia Recommendation Oxygen 2 L per minute nasal cannula Drop the Lasix to 40 mg every 12 hours Monitor urine output and renal function Advance diet Continue anticoagulation with Eliquis and fall precautions Continue GI and DVT prophylaxis. Continue diuretics. Daily monitoring of electrolytes and renal profile. Continue strict I's and O's. Continue bronchodilators, not clear whether the patient has some history of underlying COPD. Possible transfer out of the intensive care unit today. No plans for thoracentesis. Repeat chest x-ray in a.m.
[2020-05-17] MEDS: APIXABAN 2.5 MG TABLET PO SCH ×2 (08:49→22:07)
[2020-05-17] MEDS: IPRATROPIUM-ALBUTEROL 3 ML NEB INHALATION SCH ×4 (08:49→20:35)
[2020-05-17] MEDS: FUROSEMIDE 10 MG/ML 4 ML VIAL IV SCH ×2 (08:49→22:07)
[2020-05-17] MEDS: ISOSORBIDE MONONITRATE ER 30 MG TAB.ER.24H PO SCH (08:49)
[2020-05-17] MEDS: carvediloL 3.125 MG TAB PO SCH ×2 (08:49→22:08)
[2020-05-17] MEDS: PANTOPRAZOLE 40 MG/10 ML VIAL IVP SCH (08:49)
[2020-05-17] MEDS: PRAVASTATIN SODIUM 40 MG TAB PO SCH (08:50)
[2020-05-17 09:01] LABS: Albumin 3.1 g/dL (3.5-5.0); Calcium 8.1 mg/dL (8.4-10.2); Magnesium 2.1 mg/dL (1.6-2.3); Phosphorus 4.4 mg/dL (2.5-4.5); Potassium 3.4 mmol/L (3.5-5.1); Total Bilirubin 0.7 mg/dL (0.2-1.3); Total Protein 6.1 g/dL (6.3-8.2)
[2020-05-17] MEDS ORDERED: POTASSIUM CHLORIDE ER 20 MEQ TAB.ER PO STA (10:42)
--- NOTE | 2020-05-17 10:53 | P.PN ---
Subjective Progress Note Date: 05/17/20 (delayed charting seen at 0800) Principal diagnosis: altered mentation Patient is an 89-year-old female with known history of diastolic congestive heart failure with ejection fraction 55-60%, mild aortic stenosis, atrial fibrillation, GERD, and multiple other comorbid conditions who presented to the emergency department via EMS secondary to altered mental status and d ifficulty breathing. She had received her Covid vaccine second dose one day prior. On arrival to the ER she was noted be hypothermic with a rectal temperature of 85, initial blood pressure was 148/81 pulse 72, and respiratory rate 22. Initial laboratory analysis showed platelet count of 121, hemoglobin 11 which is above her baseline, BUN 67, creatinine 1.84, AST 278, ALT 121. Covid testing was negative. Chest x-ray showed congestive heart failure with right-sided pleural effusion and pulmonary interstitial edema. In the ER she became more confused with increasing respiratory distress and was subsequently intubated. She was admitted to the ICU for acute exacerbation of congestive heart failure with acute hypoxic respiratory failure. She was started on IV Lasix. She did have hypotension and required a Levophed drip. She also required a warming blanket secondary to hypothermia. Critical care and cardiology were consulted. Cardiology agreed with obtaining a repeat echo, which was unchagned, and continuing Lasix. She was able to come off 05/15, propofol was held but she was not following commands. She continued to have problems with hypothermia. She was extubated to bipap on 05/16 and was able to be weaned to 2L by the morning of 05/17. Her repeat head CT was negative and her mentation continued to improve. Spoke with son on 05/16 and he thinks that she may be falling more often than she admits at home, they have been looking into rehab at home. Patient seen and examined at bedside. Awake and alert. C/O back pain and rib pain. No chest pain, mild SOB, no nausea, no vomiting. General: non toxic, no distress, appears at stated age Derm: warm, dry Head: atraumatic, normocephalic, symmetric Eyes: EOMI, no lid lag, anicteric sclera Mouth: no lip lesion, mucus membranes dry Cardiovascular: S1-S2 irregular, positive posterior tibial pulse bilateral, Lungs: Coarse breath sounds bilateral, no rhonchi, no rales , no accessory muscle us Abdominal: soft, nontender to palpation, no guarding, no appreciable organomegaly Ext: no gross muscle atrophy, trace lower extremity edema left greater than right, no contractures Neuro: CN II-XII grossly intact, No focal neuro deficits Psych: Awake, alert, conversation Acute exacerbation of diastolic congestive heart failure with ejection fraction 55-60%, Right pleural effusion with acute hypoxic respiratory failure, resolved - Lasix IV q8H - Cardio recs - Coreg, Aldactone - not chronically on ACEI - Pulm recs, went vent as able - strict I and O, daily weights Toxic metabolic encephalopathy - Supportive care - Not following commands, repeat head CT to ruleout stroke as unable to get MRI while on vent Hypokalemia - replace and recheck in AM Hypothermia - undetermined cause - TSH normal - AM cortisol pending FREDO on CKD III, improving -Likely secondary to hepatorenal syndrome - Cr stable - Baseline creatinine 1.5-1.7 -Follow creatinine carefully with the diuresis Chronic A. fib -Continue anticoagulation with Eliquis -Coreg Anemia - at baseline - follow CBC - follow in the outpatient setting Chronic: Coronary artery disease status post PCI Dyslipidemia GERD Hypothyroidism Hypokalemia, resolved Hypotnesion, resolved DVT prophylaxis: eliquis Discussed with: patient, nursing Anticipated discharge: 2-[address]: rehab A total of 35 minutes was spent on the care of this complex patient more than 50% of the time was spent in counseling and care coordination. Objective - Vital Signs Vital signs: Vital Signs Temp 96.8 F L 05/17/20 04:00 Pulse 59 L 05/17/20 10:00 Resp 12 05/17/20 10:00 BP 93/42 05/17/20 10:00 Pulse Ox 97 05/17/20 10:00 Intake & Output 05/16/20 05/17/20 05/17/20 18:59 06:59 18:59 Intake Total 240 720 60 Output Total 1800 1420 180 Balance -1560 -700 -120 Weight 71.1 kg 69 kg Intake: IV 240 220 60 0.9 @ 20 mL/hr 240 220 60 Oral 500 Output: Urine 1800 1420 180 Other: Voiding Method Indwelling Catheter Indwelling Catheter Indwelling Catheter - Labs CBC & Chem 7: 05/17/20 04:31 05/17/20 08:17 Labs: Abnormal Lab Results - Last 24 Hours (Table) 05/16/20 05/16/20 05/17/20 Range/Units 12:17 12:41 04:31 RBC 2.96 L (3.80-5.40) m/uL Hgb 8.2 L (11.4-16.0) gm/dL Hct 25.3 L (34.0-46.0) % RDW 18.3 H (11.5-15.5) % Plt Count 111 L (150-450) k/uL ABG pCO2 46 H (35-45) mmHg ABG pO2 82 L (83-108) mmHg ABG HCO3 31 H (21-25) mmol/L ABG Total CO2 32 H (19-24) mmol/L ABG O2 Saturation 98.0 H (94-97) % Potassium (3.5-5.1) mmol/L Carbon Dioxide (22-30) mmol/L BUN (7-17) mg/dL Creatinine (0.52-1.04) mg/dL POC Glucose (mg/dL) 72 L (75-99) mg/dL Calcium (8.4-10.2) mg/dL AST (14-36) U/L ALT (4-34) U/L Alkaline Phosphatase (38-126) U/L Total Protein (6.3-8.2) g/dL Albumin (3.5-5.0) g/dL 05/17/20 Range/Units 08:17 RBC (3.80-5.40) m/uL Hgb (11.4-16.0) gm/dL Hct (34.0-46.0) % RDW (11.5-15.5) % Plt Count (150-450) k/uL ABG pCO2 (35-45) mmHg ABG pO2 (83-108) mmHg ABG HCO3 (21-25) mmol/L ABG Total CO2 (19-24) mmol/L ABG O2 Saturation (94-97) % Potassium 3.4 L (3.5-5.1) mmol/L Carbon Dioxide 33 H (22-30) mmol/L BUN 54 H (7-17) mg/dL Creatinine 1.85 H (0.52-1.04) mg/dL POC Glucose (mg/dL) (75-99) mg/dL Calcium 8.1 L (8.4-10.2) mg/dL AST 62 H (14-36) U/L ALT 70 H (4-34) U/L Alkaline Phosphatase 146 H (38-126) U/L Total Protein 6.1 L (6.3-8.2) g/dL Albumin 3.1 L (3.5-5.0) g/dL Microbiology - Last 24 Hours (Table) 05/14/20 22:22 Gram Stain - Final Sputum Sputum Culture - Final 05/15/20 01:00 Blood Culture - Preliminary Blood No Growth after 48 hours
[2020-05-17] MEDS: SPIRONOLACTONE 25 MG TAB PO SCH (22:08)
[2020-05-17] MEDS: ALPRAZolam 0.5 MG TAB PO PRN (22:08)
[2020-05-18 04:23] LABS: Anisocytosis Slight; Basophils % (A) 0 %; Eosinophils # (A) 0.2 k/uL (0-0.7); Eosinophils % (A) 3 %; HCT 23.5 % (34.0-46.0); HGB 7.5 gm/dL (11.4-16.0); Hypochromasia Slight; Lymphocytes # (A) 0.5 k/uL (1.0-4.8); Lymphocytes % (A) 8 %; MCH 27.9 pg (25.0-35.0); MCHC 32.1 g/dL (31.0-37.0); Mean Platelet Volume 8.1; Monocytes # (A) 0.3 k/uL (0-1.0); Monocytes % (A) 6 %; Neutrophils # (A) 4.4 k/uL (1.3-7.7); Neutrophils % (A) 80 %; Platelet Count 126 k/uL (150-450); RBC 2.71 m/uL (3.80-5.40); WBC 5.5 k/uL (3.8-10.6)
[2020-05-18 04:51] LABS: Calcium 7.9 mg/dL (8.4-10.2); Magnesium 2.1 mg/dL (1.6-2.3); Potassium 3.5 mmol/L (3.5-5.1)
[2020-05-18] MEDS: LEVOTHYROXINE 112 MCG TAB PO SCH (06:53)
[2020-05-18] MEDS: IPRATROPIUM-ALBUTEROL 3 ML NEB INHALATION SCH ×4 (07:12→21:42)
--- NOTE | 2020-05-18 07:35 | XR ---
EXAMINATION TYPE: XR chest 1V portable DATE OF EXAM: 05/18/2020 COMPARISON: Chest x-ray 05/17/2020 HISTORY: Abnormal chest x-ray, assess lungs TECHNIQUE: Single frontal view of the chest is obtained. FINDINGS: Generator persists in left pectoral region, lead is present in the right ventricle. Heart may be enlarged. Bibasilar density obscures the hemidiaphragms, there is blunting of the costophrenic angles. No pneumothorax. Patchy airspace disease suspected bilaterally. Aorta is dense. Thoracic spo ndylosis is present. Patient is rotated. IMPRESSION: Bilateral pleural effusions, correlate for congestive heart failure, pneumonia versus at electasis not excluded.
[2020-05-18] MEDS: carvediloL 3.125 MG TAB PO SCH ×2 (09:23→19:59)
[2020-05-18] MEDS: PANTOPRAZOLE 40 MG/10 ML VIAL IVP SCH (09:32)
[2020-05-18] MEDS: APIXABAN 2.5 MG TABLET PO SCH ×2 (09:32→20:02)
[2020-05-18] MEDS: PRAVASTATIN SODIUM 40 MG TAB PO SCH (09:32)
[2020-05-18] MEDS: ISOSORBIDE MONONITRATE ER 30 MG TAB.ER.24H PO SCH (09:32)
--- NOTE | 2020-05-18 10:00 | P.PN ---
Subjective Progress Note Date: 05/18/20 Patient was seen and evaluated today. She is awake and alert. She does not have any complaints. She denies any shortness of breath. No acute events overnight reported by nursing staff. Objective - Vital Signs Vital signs: Vital Signs Temp 97.5 F L 05/18/20 08:00 Pulse 61 05/18/20 09:00 Resp 22 05/18/20 09:00 BP 99/59 05/18/20 09:00 Pulse Ox 97 05/18/20 09:00 Intake & Output 05/17/20 05/18/20 05/18/20 18:59 06:59 18:59 Intake Total 20 115.696 200 Output Total 755 405 30 Balance -735 -289.304 170 Weight 69.8 kg Intake: IV 20 0.9 @ 20 mL/hr 20 Intake, IV Titration 15.696 Amount Norepinephrine 4 mg In 15.696 Sodium Chloride 0.9% 250 ml @ 0.05 MCG/KG/MIN 14. 669 mls/hr IV .[id number] [facility] Rx#:[id number] Oral 100 200 Output: Urine 755 405 30 Other: Voiding Method Indwelling Catheter Indwelling Catheter Indwelling Catheter - Exam General: The patient is awake and alert, in no distress Eye: there is normal conjunctiva bilaterally. Neck: The neck is supple, there is no JVD. Cardiovascular: Normal S1-S2, no S3-S4, no murmurs. Respiratory: Lungs clear to auscultation bilaterally Gastrointestinal: Abdomen is soft, nontender Musculoskeletal: There is no pedal edema. Neurological:. Speech is normal. Skin: Skin is warm and dry - Labs CBC & Chem 7: 05/18/20 04:03 05/18/20 04:03 Labs: Abnormal Lab Results - Last 24 Hours (Table) 05/17/20 05/18/20 05/18/20 Range/Units 08:17 04:03 04:03 RBC 2.71 L (3.80-5.40) m/uL Hgb 7.5 L (11.4-16.0) gm/dL Hct 23.5 L (34.0-46.0) % RDW 18.0 H (11.5-15.5) % Plt Count 126 L (150-450) k/uL Lymphocytes # 0.5 L (1.0-4.8) k/uL Potassium 3.4 L (3.5-5.1) mmol/L Carbon Dioxide 33 H 35 H (22-30) mmol/L BUN 54 H 55 H (7-17) mg/dL Creatinine 1.85 H 1.88 H (0.52-1.04) mg/dL Glucose 104 H (74-99) mg/dL Calcium 8.1 L 7.9 L (8.4-10.2) mg/dL AST 62 H (14-36) U/L ALT 70 H (4-34) U/L Alkaline Phosphatase 146 H (38-126) U/L Total Protein 6.1 L (6.3-8.2) g/dL Albumin 3.1 L (3.5-5.0) g/dL Microbiology - Last 24 Hours (Table) 05/15/20 01:00 Blood Culture - Preliminary Blood No Growth after 72 hours 05/14/20 22:22 Gram Stain - Final Sputum Sputum Culture - Final Assessment and Plan Assessment: Patient is an 89-year-old female with known history of diastolic congestive heart failure with ejection fraction 55-60%, mild aortic stenosis, atrial fibrillation, GERD, and multiple other comorbid conditions who presented to the emergency department via EMS secondary to altered mental status and difficulty breathing. She had received her Covid vaccine second dose one day prior. On arrival to the ER she was noted be hypothermic with a rectal temperature of 85, initial blood pressure was 148/81 pulse 72, and respiratory rate 22. Covid testing was negative. Chest x-ray showed congestive heart failure with right- sided pleural effusion and pulmonary interstitial edema. In the ER she became more confused with increasing respiratory distress and was subsequently intubated. She was admitted to the ICU for acute exacerbation of congestive heart failure with acute hypoxic respiratory failure. She was started on IV Lasix. She did have hypotension and required a Levophed drip. She also requir ed a warming blanket secondary to hypothermia. Critical care and cardiology were consulted. Cardiology agreed with obtaining a repeat echo, which was unchagned, and continuing Lasix. She was able to come off 05/15, propofol was held but she was not following commands. She continued to have problems with hypothermia. She was successfully extubated to bipap on 05/16 and was able to be weaned to 2L by the morning of 05/17. Her repeat head CT was negative and her mentation continued to improve. Patient seen and examined at bedside. Awake and alert. C/O back pain and rib pain. No chest pain, mild SOB, no nausea, no vomiting. Acute exacerbation of diastolic congestive heart failure with ejection fraction 55-60%, Right pleural effusion with acute hypoxic respiratory failure, resolved - Lasix IV 40 mg daily - Cardio recs - Coreg, Aldactone - not chronically on ACEI - Pulm recs, went vent as able - strict I and O, daily weights Toxic metabolic encephalopathy , resolved -Computed tomography scan of the head was no acute intracranial finding Hypokalemia - replaced Hypothermia, resolved - undetermined cause - TSH normal - AM cortisol within acceptable range FREDO on CKD III, improving -Likely secondary to hepatorenal syndrome - Cr stable - Baseline creatinine 1.5-1.7 Chronic A. fib -Continue anticoagulation with Eliquis -Coreg Anemia - at baseline - follow in the outpatient setting Chronic: Coronary artery disease status post PCI Dyslipidemia GERD Hypothyroidism Hypotnesion, resolved DVT prophylaxis: eliquis Discussed with: patient, nursing Anticipated discharge: Day or [address]: rehab A total of 35 minutes was spent on the care of this complex patient more than 50% of the time was spent in counseling and care coordination.
[2020-05-18] MEDS: FUROSEMIDE 10 MG/ML 4 ML VIAL IV SCH (10:44)
--- NOTE | 2020-05-18 11:18 | P.PN ---
Subjective Progress Note Date: 05/18/20 Principal diagnosis: Congestive heart failure, mental status changes. Patient was reevaluated today on 05/16/2020, remains in the ICU, intubated and mechanically ventilated., Patient could not be extubated yesterday because of her mental status, did not awake enough to follow simple instructions, then I decided to keep her overnight on IMV mode with a rate of 10, pressure support of 8, FiO2 at 40% and PEEP of 5. Patient remains on diuretics for her underlying congestive heart failure, ABG this morning showed a pO2 of 141 pCO2 of 53 pH of 7.37. Patient has been off sedation for the last 24 hours, she is definitely awake today, follows simple instructions, went ahead and recommended that she goes on pressure support of 12 initially and then changed to pressure support of 8/CPAP, and I plan to extubate the patient sometime later today if her gases on pressure support of 8 and CPAP are reasonable to BiPAP with IPAP of 12 and EPAP of 5. In the meantime I recommended that we continue with fluids at KVO and recommended Lasix at 40 mg IV push every 8 hours chest x-ray continues to show evidence of mild edema and small right-sided pleural effusion. Obviously the effusion is not large enough to affect her oxygenation, hence will not drain the pleural effusion at this point while she is on mechanical ventilation especially if she is already responding to diuretics. We have known from previous thoracentesis procedures that this fluid was transudative in nature. Patient had repeat ABG after 1 hour of CPAP and pressure support of 8, and ABG showed a pO2 of 82 pCO2 of 46 and pH of 7.43, this was on 30% FiO2, hence I would proceed with extubating this patient today to BiPAP, and eventually transitioned to nasal cannula. 05/17/2020, the patient is being seen in the ICU for a follow-up. The patient has been extubated and currently she is on 2 L of oxygen by nasal cannula. Initially there were plans to put her on a BiPAP postextubation and ultimately the patient did not require BiPAP and she was placed on oxygen by nasal cannula. She is doing well. She is resting comfortably. Head of the bed elevated is around 20. No major edema lower extremities. She still has a Esparza cath in place. She is on Lasix 40 mg every 8 hours and she is in a negative fluid balance. Morning chest x-ray still showing pulmonary edema along with that there is a right-sided pleural effusion. Nevertheless, the patient is responding well to diuretics. She is awake. She is conscious. She was able to tolerate some diet yesterday. She drank some soup. No chest pain. No angina. No palpitation. No cardiac arrhythmias. Her cardiac rhythm is the paced and there is an underlying atrial fibrillation the patient was restarted back on Eliquis. CAT scan of the brain was done yesterday and there was no acute abnormalities as there was concern that she would have had a damage because of her recurrent falls. Nevertheless, the CAT scan of the brain came back negative and the patient was kept on Eliquis as long-term anticoagulants. She is able to converse pH is following commands. She is answering questions. No aspiration. She was hypothermic and his temperature is up to 96.5 this morning. The fluid balance is -2.2 L. Progress note dated 05/18/2020. 89-year-old female, who was admitted to the hospital on May 14, for acute mental status changes, and CHF. Currently, she is on 2 L nasal cannula and not receiving any IV fluids. 4 acute hypoxemic respiratory failure, she initially was intubated on the , and extubated on May 16. We are going to reduce her Lasix dose today. Currently, she is resting comfortably. She is no acute d istress. She is able to speak in full sentences. Her chest x-ray shows an improved pattern of interstitial and pulmonary edema. White blood count is 5.5, hemoglobin 7.5, hematocrit 23.5, and platelet count 126,000. Sodium is 140, potassium 3.5, chloride 98, CO2 35, anion gap 7, BUN 55, and creatinine 1.88. Cortisol level was 18. Chest x-ray does show a resolving pattern of congestive heart failure, with bilateral pleural effusions. Objective - Vital Signs Vital signs: Vital Signs Temp 97.5 F L 05/18/20 08:00 Pulse 59 L 05/18/20 11:02 Resp 12 05/18/20 11:02 BP 99/59 05/18/20 09:00 Pulse Ox 97 05/18/20 09:00 Intake & Output 05/17/20 05/18/20 05/18/20 18:59 06:59 18:59 Intake Total 20 115.696 200 Output Total 755 405 30 Balance -735 -289.304 170 Weight 69.8 kg Intake: IV 20 0.9 @ 20 mL/hr 20 Intake, IV Titration 15.696 Amount Norepinephrine 4 mg In 15.696 Sodium Chloride 0.9% 250 ml @ 0.05 MCG/KG/MIN 14. 669 mls/hr IV .[id number] [facility] Rx#:[id number] Oral 100 200 Output: Urine 755 405 30 Other: Voiding Method Indwelling Catheter Indwelling Catheter Indwelling Catheter - Exam No acute distress, oriented 3. Currently on O2 at 2 L. HEENT examination is grossly unremarkable. Mucous membranes are moist. No oral lesions. Neck supple. Full range of motion. No adenopathy thyromegaly or neck vein distention. Cardiovascular examination reveals irregular rhythm and rate. S1-S2 normal. No S3 or S4. A soft systolic murmur, grade 2/6 is noted. Lungs reveal bibasilar crackles. A few scattered rhonchi are noted. No wheezes. Breath sounds equal bilaterally. Abdomen soft bowel sounds are heard. No masses or tenderness. Extremities are intact and show mild lower extremity edema. No cyanosis or clubbing. Skin is without rash or lesion. Neurologic examination is brief but nonfocal. - Labs CBC & Chem 7: 05/18/20 04:03 05/18/20 04:03 Labs: Abnormal Lab Results - Last 24 Hours (Table) 05/17/20 05/18/20 05/18/20 Range/Units 08:17 04:03 04:03 RBC 2.71 L (3.80-5.40) m/uL Hgb 7.5 L (11.4-16.0) gm/dL Hct 23.5 L (34.0-46.0) % RDW 18.0 H (11.5-15.5) % Plt Count 126 L (150-450) k/uL Lymphocytes # 0.5 L (1.0-4.8) k/uL Potassium 3.4 L (3.5-5.1) mmol/L Carbon Dioxide 33 H 35 H (22-30) mmol/L BUN 54 H 55 H (7-17) mg/dL Creatinine 1.85 H 1.88 H (0.52-1.04) mg/dL Glucose 104 H (74-99) mg/dL Calcium 8.1 L 7.9 L (8.4-10.2) mg/dL AST 62 H (14-36) U/L ALT 70 H (4-34) U/L Alkaline Phosphatase 146 H (38-126) U/L Total Protein 6.1 L (6.3-8.2) g/dL Albumin 3.1 L (3.5-5.0) g/dL Microbiology - Last 24 Hours (Table) 05/15/20 01:00 Blood Culture - Preliminary Blood No Growth after 72 hours 05/14/20 22:22 Gram Stain - Final Sputum Sputum Culture - Final Assessment and Plan Assessment: Acute hypoxemic respiratory failure secondary to acute on chronic diastolic CHF, status post intubation on May 14, and extubation on May 16. Acute on chronic kidney injury. Bilateral pleural effusions, with no plans for thoracentesis at this time. Chronic atrial fibrillation. Status post permanent pacemaker insertion. Valvular heart disease, the form of aortic stenosis, and mitral regurgitation. Secondary pulmonary hypertension. Chronic anemia. History of CAD and previous PCI to the RCA Hypothyroidism. History of GERD. Hyperlipidemia. Acute metabolic encephalopathy, resolved, secondary to acute hypoxemic respiratory failure. Hypotension, resolved. Hypertension. Hyperlipidemia. Plan: Plan dated 03/17/2021. The patient is doing rather well. My only recommendation at this time is to cut back on her Lasix. She is becoming prerenal and volume contracted. Chest x- rays reviewed. Labs and medications are reviewed. In my opinion, she is stable to be discharged out to the floor. Her blood pressures are a bit low but I think cutting back on the Lasix, will help that process. Currently, her blood pressures about 115 systolic. Additional recommendations and suggestions are forthcoming. Prognosis is guarded. She would not want to be back on the mechanical ventilator. We will continue to follow make up recommendations were appropriate. Overall prognosis is guarded. Time with Patient: Less than 30
--- NOTE | 2020-05-18 11:38 | PN ---
PROGRESS NOTE Mrs. Simon is an 89-year-old female who presented with respiratory failure. She has chronic diastolic dysfunction, history of atrial fibrillation, permanent pacemaker implantation. She is extubated and awake, alert, following commands. She continues in atrial fibrillation with paced rhythm. There is no evidence of malignant arrhythmia. She had a drop in the blood pressure yesterday requiring pressors for a short period of time. Her echocardiogram revealed ejection fraction of 50% to 55% with mild aortic stenosis and mild mitral and tricuspid regurgitation and moderate pulmonary hypertension. She continues to be at this time on Eliquis 2.5 mg twice a day, Coreg 3.125 mg twice a day, Lasix 40 mg IV q.12 hours, isosorbide mononitrate 30 mg daily, spironolactone 25 mg daily, pravastatin 40 mg daily. PHYSICAL EXAMINATION: VITAL SIGNS: Blood pressure running in the 100s with a heart rate in the 60s. LUNGS: Clear anteriorly. HEART: Irregularly irregular S1, S2, no S3 with systolic murmur, ejection type. No diastolic murmur. No rub. ABDOMEN: Soft and nontender. EXTREMITIES: No edema. LAB DATA: Revealed hemoglobin 7.5. BUN creatinine 55 and 1.88, which is similar to her baseline. IMPRESSION: 1. Respiratory failure with a history of diastolic dysfunction heart failure in the past. 2. History of atrial fibrillation with permanent pacemaker implantation, anticoagulated with no evidence of tachyarrhythmia. 3. Chronic kidney disease. 4. History of valve disease with mild aortic stenosis. 5. Anemia. 6. Hyperlipidemia. 7. History of pleural effusion. 8. Remote history of coronary artery disease. RECOMMENDATION: From the cardiac standpoint, will continue present therapy. Continue to follow her renal function. Her chest x-ray shows bilateral pleural effusion. Depending on her progress, further recommendation will be made. We will increase her activity gradually. MMODL / IJN: [id number] /
[2020-05-18] MEDS: SPIRONOLACTONE 25 MG TAB PO SCH (20:02)
[2020-05-19] MEDS: ALPRAZolam 0.5 MG TAB PO PRN (00:11)
[2020-05-19] MEDS: LEVOTHYROXINE 112 MCG TAB PO SCH (06:34)
[2020-05-19] MEDS: PANTOPRAZOLE 40 MG TABLET PO SCH (06:34)
[2020-05-19] MEDS: CHLORHEXIDINE GLUCONATE 15 ML CUP MUCOUS MEM SCH (07:29)
[2020-05-19] MEDS ORDERED: HYDROcodone/APAP 5-325MG 1 EACH TAB PO PRN (08:03)
--- NOTE | 2020-05-19 08:11 | XR ---
EXAMINATION TYPE: XR chest 1V portable DATE OF EXAM: 05/19/2020 COMPARISON: 05/18/2020 HISTORY: Shortness of breath TECHNIQUE: Single frontal view of the chest is obtained. FINDINGS: Cardiac device seen and there is a diffuse interstitial pattern with bilateral consolidati on and pleural effusion. No pneumothorax. Arthropathy of the shoulders. Cardiomegaly and atherosclero tic change aorta. Degenerative changes spine. IMPRESSION: 1. Diffuse pleural-parenchymal changes are stable correlate for CHF otherwise consider diffuse pneumo kassi.
[2020-05-19 08:13] LABS: Anisocytosis Slight; Basophils % (A) 0 %; Eosinophils # (A) 0.2 k/uL (0-0.7); Eosinophils % (A) 4 %; HCT 23.6 % (34.0-46.0); HGB 7.5 gm/dL (11.4-16.0); Hypochromasia Slight; Lymphocytes # (A) 0.6 k/uL (1.0-4.8); Lymphocytes % (A) 13 %; MCH 27.6 pg (25.0-35.0); MCHC 31.9 g/dL (31.0-37.0); MCV 86.6 fL (80.0-100.0); Mean Platelet Volume 8.2; Monocytes # (A) 0.4 k/uL (0-1.0); Monocytes % (A) 7 %; Neutrophils # (A) 3.7 k/uL (1.3-7.7); Neutrophils % (A) 73 %; Platelet Count 117 k/uL (150-450); RBC 2.72 m/uL (3.80-5.40); RDW 18.4 % (11.5-15.5)
[2020-05-19] MEDS: carvediloL 3.125 MG TAB PO SCH ×2 (08:31→21:04)
[2020-05-19] MEDS: PRAVASTATIN SODIUM 40 MG TAB PO SCH (08:31)
[2020-05-19] MEDS: ISOSORBIDE MONONITRATE ER 30 MG TAB.ER.24H PO SCH (08:31)
[2020-05-19] MEDS: APIXABAN 2.5 MG TABLET PO SCH ×2 (08:31→21:04)
[2020-05-19 08:43] LABS: Calcium 8.3 mg/dL (8.4-10.2); Potassium 3.4 mmol/L (3.5-5.1)
[2020-05-19] MEDS: IPRATROPIUM-ALBUTEROL 3 ML NEB INHALATION SCH ×4 (08:50→20:06)
[2020-05-19] MEDS ORDERED: FUROSEMIDE 10 MG/ML 4 ML VIAL IV SCH (09:00)
[2020-05-19] MEDS ORDERED: POTASSIUM CHLORIDE 20 MEQ in WATER FOR INJECTION 1 100ML.BAG IVPB STA (11:46)
[2020-05-19] MEDS ORDERED: POTASSIUM CHLORIDE ER 20 MEQ TAB.ER PO STA (11:46)
--- NOTE | 2020-05-19 12:39 | P.PN ---
Subjective Progress Note Date: 05/19/20 Patient appeared more tired and sleepy today. She reports feeling more short of breath compared to yesterday. Nursing staff informed me that she was on 8 L of oxygen overnight. It is unclear if she had documented hypoxia or why the nurses increased her oxygen. She is currently on 2 L via nasal cannula and satting 95%. Patient herself reports feeling more short of breath. She denies any cough. Objective - Vital Signs Vital signs: Vital Signs Temp 97.3 F L 05/19/20 08:00 Pulse 62 05/19/20 12:08 Resp 16 05/19/20 12:08 BP 100/44 05/19/20 11:10 Pulse Ox 96 05/19/20 11:10 Intake & Output 05/18/20 05/19/20 05/19/20 18:59 06:59 18:59 Intake Total 325 125 Output Total 30 460 350 Balance 295 -460 -225 Weight 69.8 kg Intake: Oral 325 125 Output: Urine 30 460 350 Other: Voiding Method Indwelling Catheter Diaper Diaper # Voids 1 1 - Exam General: The patient is awake and alert, in no distress Eye: there is normal conjunctiva bilaterally. Neck: The neck is supple, there is no JVD. Cardiovascular: Normal S1-S2, no S3-S4, no murmurs. Respiratory: Lungs clear to auscultation bilaterally Gastrointestinal: Abdomen is soft, nontender Musculoskeletal: There is no pedal edema. Neurological:. Speech is normal. Skin: Skin is warm and dry - Labs CBC & Chem 7: 05/19/20 07:27 05/19/20 07:27 Labs: Abnormal Lab Results - Last 24 Hours (Table) 05/19/20 05/19/20 Range/Units 07:27 07:27 RBC 2.72 L (3.80-5.40) m/uL Hgb 7.5 L (11.4-16.0) gm/dL Hct 23.6 L (34.0-46.0) % RDW 18.4 H (11.5-15.5) % Plt Count 117 L (150-450) k/uL Lymphocytes # 0.6 L (1.0-4.8) k/uL Potassium 3.4 L (3.5-5.1) mmol/L Chloride 97 L (98-107) mmol/L Carbon Dioxide 35 H (22-30) mmol/L BUN 57 H (7-17) mg/dL Creatinine 1.75 H (0.52-1.04) mg/dL Calcium 8.3 L (8.4-10.2) mg/dL Microbiology - Last 24 Hours (Table) 05/15/20 01:00 Blood Culture - Preliminary Blood No Growth after 96 hours Assessment and Plan Assessment: Patient is an 89-year-old female with known history of diastolic congestive heart failure with ejection fraction 55-60%, mild aortic stenosis, atrial fibrillation, GERD, and multiple other comorbid conditions who presented to the emergency department via EMS secondary to altered mental status and difficulty breathing. She had received her Covid vaccine second dose one day prior. On arrival to the ER she was noted be hypothermic with a rectal temperature of 85, initial blood pressure was 148/81 pulse 72, and respiratory rate 22. Covid testing was negative. Chest x-ray showed congestive heart failure with right- sided pleural effusion and pulmonary interstitial edema. In the ER she became more confused with increasing respiratory distress and was subsequently intubated. She was admitted to the ICU for acute exacerbation of congestive heart failure with acute hypoxic respiratory failure. She was started on IV Lasix. She did have hypotension and required a Levophed drip. She also required a warming blanket secondary to hypothermia. Critical care and cardiology were consulted. Cardiology agreed with obtaining a repeat echo, which was unchagned, and continuing Lasix. She was able to come off 05/15, propofol was held but she was not following commands. She continued to have problems with hypothermia. She was successfully extubated to bipap on 05/16 and was able to be weaned to 2L by the morning of 05/17. Her repeat head CT was ne gative and her mentation continued to improve. Patient seen and examined at bedside. Awake and alert. C/O back pain and rib pain. No chest pain, mild SOB, no nausea, no vomiting. Acute exacerbation of diastolic congestive heart failure with ejection fraction 55-60%, Right pleural effusion with acute hypoxic respiratory failure, resolved - Patient was started on IV Lasix since admission. I would transition her to by mouth Lasix 40 mg twice daily. Repeat chest x-ray today showed interstitial edema. I would obtain a stat BMP for further evaluation. Toxic metabolic encephalopathy , resolved -Computed tomography scan of the head was no acute intracranial finding Hypokalemia - replaced Hypothermia on presentation, resolved - undetermined cause - TSH normal - AM cortisol within acceptable range FREDO on CKD III, improving -Likely secondary to hepatorenal syndrome - Cr stable - Baseline creatinine 1.5-1.7 Chronic A. fib -Continue anticoagulation with Eliquis -Coreg Anemia - at baseline - follow in the outpatient setting Chronic: Coronary artery disease status post PCI Dyslipidemia GERD Hypothyroidism Hypotnesion, resolved DVT prophylaxis: eliquis Discussed with: patient, nursing Anticipated discharge: Tomorrow Anticipated discharge place: rehab A total of 35 minutes was spent on the care of this complex patient more than 50% of the time was spent in counseling and care coordination.
--- NOTE | 2020-05-19 14:19 | P.PN ---
Subjective This is a pleasant 89-year-old female who presented to the hospital with respiratory failure. Past medical history significant for chronic diastolic dysfunction, atrial fibrillation, hypertension and permanent pacemaker implantation. She is seen and examined sitting up in bed. She states that she had a particularly rough night sleeping. According to the nurse she was placed on a nonrebreather. She has been weaned to nasal cannula first thing this morning and is currently maintaining oxygen saturations. She has no symptoms of chest pain, dizziness or palpitations. Blood pressure 100/44 heart rate 62 afebrile maintaining oxygen saturation on nasal cannula. Laboratory data reviewed, WBC 5, hemoglobin 7.5, platelets 117, sodium 138, potassium 3.4, creatinine 1.75. Currently maintained on Eliquis 2.5 mg twice a day, carvedilol 3.125 mg twice a day, Lasix 80 mg by mouth twice a day, Imdur 30 mg daily, Aldactone 25 mg daily and pravastatin 40 mg daily. GENERAL: Well-appearing, well-nourished and in no acute distress. NECK: Supple without JVD or thyromegaly. LUNGS: Bibasilar rales, no wheezes or rhonchi. Respiration equal and unlabored. HEART: Irregular rate and rhythm with systolic ejection murmur at the base, no rubs or gallops. S1 and S2 heard. EXTREMITIES: Normal range of motion, no edema. No clubbing or cyanosis. Peripheral pulses intact. ASSESSMENT Respiratory failure with history of diastolic heart failure Chronic persistent atrial fibrillation Chronic kidney disease Hypertension Permanent pacemaker implantation Aortic stenosis Dyslipidemia PLAN Continue current medical regimen, agree with increase in oral diuretics. Follow renal function and electrolytes in the morning. Increase activity as tolerated. Further recommendations to follow based upon clinical course. Nurse Practitioner note has been reviewed, I agree with a documented findings and plan of care. Patient was seen and examined. Objective - Vital Signs Vital signs: Vital Signs Temp 97.3 F L 05/19/20 08:00 Pulse 62 05/19/20 12:08 Resp 16 05/19/20 12:08 BP 100/44 05/19/20 11:10 Pulse Ox 96 05/19/20 11:10 Intake & Output 05/18/20 05/19/20 05/19/20 18:59 06:59 18:59 Intake Total 325 125 Output Total 30 460 350 Balance 295 -460 -225 Weight 69.8 kg Intake: Oral 325 125 Output: Urine 30 460 350 Other: Voiding Method Indwelling Catheter Diaper Diaper # Voids 1 1 - Labs CBC & Chem 7: 05/19/20 07:27 05/19/20 07:27 Labs: Abnormal Lab Results - Last 24 Hours (Table) 05/19/20 05/19/20 Range/Units 07:27 07:27 RBC 2.72 L (3.80-5.40) m/uL Hgb 7.5 L (11.4-16.0) gm/dL Hct 23.6 L (34.0-46.0) % RDW 18.4 H (11.5-15.5) % Plt Count 117 L (150-450) k/uL Lymphocytes # 0.6 L (1.0-4.8) k/uL Potassium 3.4 L (3.5-5.1) mmol/L Chloride 97 L (98-107) mmol/L Carbon Dioxide 35 H (22-30) mmol/L BUN 57 H (7-17) mg/dL Creatinine 1.75 H (0.52-1.04) mg/dL Calcium 8.3 L (8.4-10.2) mg/dL Microbiology - Last 24 Hours (Table) 05/15/20 01:00 Blood Culture - Preliminary Blood No Growth after 96 hours
[2020-05-19 14:41] VITALS: BMI 25.6
--- NOTE | 2020-05-19 14:55 | P.PN ---
Subjective Progress Note Date: 05/19/20 Principal diagnosis: Acute exacerbation of congestive heart failure, altered mental status Patient was reevaluated today on 05/16/2020, remains in the ICU, intubated and mechanically ventilated., Patient could not be extubated yesterday because of her mental status, did not awake enough to follow simple instructions, then I decided to keep her overnight on IMV mode with a rate of 10, pressure support of 8, FiO2 at 40% and PEEP of 5. Patient remains on diuretics for her underlying congestive heart failure, ABG this morning showed a pO2 of 141 pCO2 of 53 pH of 7.37. Patient has been off sedation for the last 24 hours, she is definitely awake today, follows simple instructions, went ahead and recommended that she goes on pressure support of 12 initially and then changed to pressure support of 8/CPAP, and I plan to extubate the patient sometime later today if her gases on pressure support of 8 and CPAP are reasonable to BiPAP with IPAP of 12 and EPAP of 5. In the meantime I recommended that we continue with fluids at KVO and recommended Lasix at 40 mg IV push every 8 hours chest x-ray continues to show evidence of mild edema and small right-sided pleural effusion. Obviously the effusion is not large enough to affect her oxygenation, hence will not drain the pleural effusion at this point while she is on mechanical ventilation especially if she is already responding to diuretics. We have known from previous thoracentesis procedures that this fluid was transudative in nature. Patient had repeat ABG after 1 hour of CPAP and pressure support of 8, and ABG showed a pO2 of 82 pCO2 of 46 and pH of 7.43, this was on 30% FiO2, hence I would proceed with extubating this patient today to BiPAP, and eventually transitioned to nasal cannula. 05/17/2020, the patient is being seen in the ICU for a follow-up. The patient has been extubated and currently she is on 2 L of oxygen by nasal cannula. Initially there were plans to put her on a BiPAP postextubation and ultimately the patient did not require BiPAP and she was placed on oxygen by nasal cannula. She is doing well. She is resting comfortably. Head of the bed elevated is around 20. No major edema lower extremities. She still has a Esparza cath in place. She is on Lasix 40 mg every 8 hours and she is in a negative fluid balance. Morning chest x-ray still showing pulmonary edema along with that there is a right-sided pleural effusion. Nevertheless, the patient is responding well to diuretics. She is awake. She is conscious. She was able to tolerate some diet yesterday. She drank some soup. No chest pain. No angina. No palpitation. No cardiac arrhythmias. Her cardiac rhythm is the paced and there is an underlying atrial fibrillation the patient was restarted back on Eliquis. CAT scan of the brain was done yesterday and there was no acute abnormalities as there was concern that she would have had a damage because of her recurrent falls. Nevertheless, the CAT scan of the brain came back negative and the patient was kept on Eliquis as long-term anticoagulants. She is able to converse pH is following commands. She is answering questions. No aspiration. She was hypothermic and his temperature is up to 96.5 this morning. The fluid balance is -2.2 L. Progress note dated 05/18/2020. 89-year-old female, who was admitted to the hospital on May 14, for acute mental status changes, and CHF. Currently, she is on 2 L nasal cannula and not receiving any IV fluids. 4 acute hypoxemic respiratory failure, she initially was intubated on the , and extubated on May 16. We are going to reduce her Lasix dose today. Currently, she is resting comfortably. She is no acute distress. She is able to speak in full sentences. Her chest x-ray shows an imp roved pattern of interstitial and pulmonary edema. White blood count is 5.5, hemoglobin 7.5, hematocrit 23.5, and platelet count 126,000. Sodium is 140, potassium 3.5, chloride 98, CO2 35, anion gap 7, BUN 55, and creatinine 1.88. Cortisol level was 18. Chest x-ray does show a resolving pattern of congestive heart failure, with bilateral pleural effusions. On 05/19/2020 patient seen in follow-up on selective care unit, she that more sleepy today, apparently last night she was a bit more anxious and was given some Xanax. This made her a bit more sleepy, subsequently patient's FiO2 increased to 9 L. Follow-up chest x-ray today shows a diffuse pleural parenchymal changes that are stable in appearance. She continues on IV Lasix 40 mg twice daily, and she is only -165 ML fluid balance, over the last 24 hours, her indwelling catheter has been discontinued, her net fluid balance is diff icult to estimate as the patient's output is recorded in occurrences. She is up in the chair, denies any chest pain, subsequently today her FiO2 has been weaned back down . Liters, and pulse ox 96%, no fever or chills. Objective - Vital Signs Vital signs: Vital Signs Temp 97.3 F L 05/19/20 08:00 Pulse 62 05/19/20 12:08 Resp 16 05/19/20 12:08 BP 100/44 05/19/20 11:10 Pulse Ox 96 05/19/20 11:10 Intake & Output 05/18/20 05/19/20 05/19/20 18:59 06:59 18:59 Intake Total 325 125 Output Total 30 460 350 Balance 295 -460 -225 Weight 69.8 kg 69.8 kg Intake: Oral 325 125 Output: Urine 30 460 350 Other: Voiding Method Indwelling Catheter Diaper Diaper # Voids 1 1 - Exam GENERAL EXAM: Pleasant, 81-year-old white female, on the news of oxygen, sitting up in the recliner, comfortable in no apparent distress. HEAD: Normocephalic/atraumatic. EYES: Normal reaction of pupils, equal size. Conjunctiva pink, sclera white. NOSE: Clear with pink turbinates. THROAT: No erythema or exudates. NECK: No masses, no JVD, no thyroid enlargement, no adenopathy. CHEST: No chest wall deformity. Symmetrical expansion. LUNGS: Equal air entry with basilar crackles, CVS: Regular rate and rhythm, normal S1 and S2, no gallops, no murmurs, no rubs ABDOMEN: Soft, nontender. No hepatosplenomegaly, normal bowel sounds, no guarding or rigidity. EXTREMITIES: No clubbing, no edema, no cyanosis, 2+ pulses and upper and lower extremities. MUSCULOSKELETAL: Muscle strength and tone normal. SPINE: No scoliosis or deformity SKIN: No rashes CENTRAL NERVOUS SYSTEM: Alert and oriented -3. No focal deficits, tone is normal in all 4 extremities. PSYCHIATRIC: Alert and oriented -3. Appropriate affect. Intact judgment and insight. - Labs CBC & Chem 7: 05/19/20 07:27 05/19/20 07:27 Labs: Abnormal Lab Results - Last 24 Hours (Table) 05/19/20 05/19/20 Range/Units 07:27 07:27 RBC 2.72 L (3.80-5.40) m/uL Hgb 7.5 L (11.4-16.0) gm/dL Hct 23.6 L (34.0-46.0) % RDW 18.4 H (11.5-15.5) % Plt Count 117 L (150-450) k/uL Lymphocytes # 0.6 L (1.0-4.8) k/uL Potassium 3.4 L (3.5-5.1) mmol/L Chloride 97 L (98-107) mmol/L Carbon Dioxide 35 H (22-30) mmol/L BUN 57 H (7-17) mg/dL Creatinine 1.75 H (0.52-1.04) mg/dL Calcium 8.3 L (8.4-10.2) mg/dL Microbiology - Last 24 Hours (Table) 05/15/20 01:00 Blood Culture - Preliminary Blood No Growth after 96 hours Assessment and Plan Plan: Acute hypoxemic respiratory failure secondary to acute on chronic diastolic CHF, status post intubation on May 14, and extubation on May 16. Acute on chronic kidney injury. Bilateral pleural effusions, with no plans for thoracentesis at this time. Chronic atrial fibrillation. Status post permanent pacemaker insertion. Valvular heart disease, the form of aortic stenosis, and mitral regurgitation. Secondary pulmonary hypertension. Chronic anemia. History of CAD and previous PCI to the RCA Hypothyroidism. History of GERD. Hyperlipidemia. Acute metabolic encephalopathy, resolved, secondary to acute hypoxemic res piratory failure. Hypotension, resolved. Hypertension. Hyperlipidemia. Plan: Continue diuretics, avoid benzodiazepines and sedatives, wean down FiO2, today's chest x-ray shows stable findings with diffuse interstitial pattern, right-sided pleural effusion. Daily weight, accurate intake and output. Vital signs are stable, we'll continue to follow I performed a history & physical examination of the patient and discussed their management with my nurse practitioner, Magalys Cruz. I reviewed the nurse practitioner's note and agree with the documented findings and plan of care. Lung sounds are positive for diminished breath sounds. The findings and the impression was discussed with the patient. I attest to the documentation by the nurse practitioner. Time with Patient: Less than 30
--- NOTE | 2020-05-19 15:55 | US ---
EXAMINATION TYPE: US chest DATE OF EXAM: 05/19/2020 COMPARISON: X ray CLINICAL HISTORY: right pleural effusion. TECHNIQUE: Targeted ultrasound of the bilateral chest EXAM MEASUREMENTS: Right Pleural Effusion pocket size: 8.1 cm A/P complex, septated fluid Right skin surface to fluid distance: 3.5 cm A/P Left Pleural Effusion pocket size: 5.2 cm A/P Left skin surface to fluid distance: 3.1 cm A/P Right side marked for possible thoracentesis outside the dept. Left side marked for possible thoracentesis outside the dept. Pulmonologists are able to review the images in the patient?s EMR. IMPRESSIONS: 1. Complex right-sided pleural fluid collection with septation. 2. Moderate left pleural effusion.
[2020-05-19] MEDS ORDERED: FUROSEMIDE 40 MG TAB PO SCH (21:00)
[2020-05-19] MEDS: FUROSEMIDE 10 MG/ML 4 ML VIAL IV SCH (21:04)
[2020-05-19] MEDS: MELATONIN 5 MG TABLET PO SCH (21:43)
[2020-05-20] MEDS: LEVOTHYROXINE 112 MCG TAB PO SCH (07:05)
[2020-05-20] MEDS: PANTOPRAZOLE 40 MG TABLET PO SCH (07:05)
[2020-05-20] MEDS: IPRATROPIUM-ALBUTEROL 3 ML NEB INHALATION SCH ×4 (07:40→21:41)
[2020-05-20 08:18] LABS: Anisocytosis Slight; Basophils % (A) 0 %; Eosinophils # (A) 0.2 k/uL (0-0.7); Eosinophils % (A) 3 %; HCT 22.9 % (34.0-46.0); HGB 7.5 gm/dL (11.4-16.0); Hypochromasia Slight; Lymphocytes # (A) 0.7 k/uL (1.0-4.8); Lymphocytes % (A) 12 %; MCHC 32.5 g/dL (31.0-37.0); MCV 86.1 fL (80.0-100.0); Mean Platelet Volume 8.2; Monocytes # (A) 0.4 k/uL (0-1.0); Monocytes % (A) 7 %; Neutrophils % (A) 76 %; Platelet Count 117 k/uL (150-450); RBC 2.66 m/uL (3.80-5.40); RDW 18.4 % (11.5-15.5); WBC 5.3 k/uL (3.8-10.6)
[2020-05-20 08:45] LABS: Calcium 8.4 mg/dL (8.4-10.2); Potassium 4.3 mmol/L (3.5-5.1)
[2020-05-20] MEDS ORDERED: FUROSEMIDE 40 MG TAB PO SCH (09:00)
--- NOTE | 2020-05-20 09:08 | XR ---
EXAMINATION TYPE: XR chest 1V portable DATE OF EXAM: 05/20/2020 COMPARISON: Chest x-ray 05/19/2020 HISTORY: Abnormal chest x-ray TECHNIQUE: Single frontal view of the chest is obtained. FINDINGS: Patient is rotated. Pleural parenchymal changes are similar to prior exam. No evident pneu mothorax. Hemidiaphragms are obscured, there is blunting the costophrenic angles. Central vascularity and interstitium are increased. Pacemaker is stable. Aorta is dense. Heart is obscured but likely in creased in size. IMPRESSION: Correlate for congestive heart failure, pneumonia not excluded, probable basilar effusio ns.
[2020-05-20] MEDS: ISOSORBIDE MONONITRATE ER 30 MG TAB.ER.24H PO SCH (09:28)
[2020-05-20] MEDS: APIXABAN 2.5 MG TABLET PO SCH (09:28)
[2020-05-20] MEDS: FUROSEMIDE 10 MG/ML 4 ML VIAL IV SCH ×2 (09:28→20:44)
[2020-05-20] MEDS: carvediloL 3.125 MG TAB PO SCH ×2 (09:28→20:44)
[2020-05-20] MEDS: PRAVASTATIN SODIUM 40 MG TAB PO SCH (09:29)
--- NOTE | 2020-05-20 10:08 | CDI ---
Documentation Clarification Form Date: 05/20/2020 09:42:58 AM From: Beth Keyes CCS, CCDS Admit Date: 05/14/2020 10:41:00 PM Patient Name: Lolly Simon Visit Number: [id number] Discharge Date: ATTENTION: The Clinical Documentation Specialists (CDI) and [facility] Coding Staff appreciate your assistance in clarifying documentation. Please respond to the clarification below the line at the bottom and electronically sign. The CDI & [facility] Coding staff will review the response and follow-up if needed. Please note: Queries are made part of the Legal Health Record. If you have any questions, please contact the author of this message via ITS. Dr. Joce Rubalcava: Per the 05/14 History & Physical: "in the ED, patient was found obtunded, her ABG showed acute respiratory acidosis with hypercapnia, CXR suggestive of pleural effusion and pulmonary edema. Blood work showed stable anemia, thrombocytopenia , elevated liver enzymes, no leukocytosis but patient was hypothermic. Patient was intubated, CT of the head and neck done, as patient's son also reported that she had fell and hit her head today, this returned showing no acute intracranial pathology." H/P Assessment: Acute metabolic encephalopathy, Acute Hypercapnic Respiratory Failure, Acute CHF exacerbation, Chronic anemia, FREDO, Hypothermia, Elevated liver enzymes with possible passive hepatic congestion, Atrial Fibrillation with Pacemaker on Eliquis, Thrombocytopenia. Patient history/risk factors per the 05/14 History & Physical Past Medical History: Atrial Fibrillation, CAD, CHF, Hyperlipidemia, Hypertension, CKD II, Hypothyroidism, Glaucoma, Former smoker. Clinical Indicators: Presented to the ED on 05/14 via EMS with Altered Mental Status. The patient received her second COVID vaccine yesterday. After vaccine was given, the patient became acutely confused and SOB. 05/14 VS: T 85, P 72 - 59, R 22 - 24 (SOB), BP 148/81, PO 100 3Lnc BMI: 25.6 05/14 LAB: WBC 5.0, Hgb 11.0, Pl Ct 121, Lymph 0.2, PT 13.2, INR 1.3, BUN 67, Cr 1.84, Glucose 117, Calcium 7.7, AST 278, ALT 121, Alk Phos 155, Albumin 3.3 05/14: COVID: Negative 05/15 Blood Gas ABG: pH 7.48^, pO2 203, HCO3 28, Total CO2 29, O2 Sat 100.0 05/14 Sputum Culture Final: Negative 05/15 Blood Culture Preliminary: no growth @ 120 hours 05/14 CT Abdomen/Pelvis: Extensive atherosclerotic vascular disease. Pleural effusions and pulmonary infiltrates and mild cardiomegaly suggestive of chronic CHF. 05/14 CT Brain: Cerebral atrophy. Ch small vessel ischemia. 05/14 CXR: Congestive heart failure with right pleural effusions. Small left pleural effusion. Pulmonary interstitial and airspace edema. There is increased edema on the right side compared to old exam. Treatment 05/14: Admit to ICU, Neuro checks, IV Amidate, IV Quelicin, IV Versed, IV Propofol, IV Lasix, O2 3-4Lnc, subsequently intubated. 05/15: IV Levophed, INH Duoneb, IV Morphine, po KDur 05/16 Extubated to BiPAP In your professional opinion, can you please specify the type of shock if known? Septic Shock o Any associated organ failure Cardiogenic Shock o Cause Other Shock, please specify Other, please specify: Unable to determine (Last Revision: December 2016) MTDD
--- NOTE | 2020-05-20 10:23 | CDI ---
Documentation Clarification Form Date: 05/20/2020 10:13:14 AM From: Beth Keyes CCS, CCDS Admit Date: 05/14/2020 10:41:00 PM Patient Name: Lolly Simon Visit Number: [id number] Discharge Date: ATTENTION: The Clinical Documentation Specialists (CDI) and [facility] Coding Staff appreciate your assistance in clarifying documentation. Please respond to the clarification below the line at the bottom and electronically sign. The CDI & [facility] Coding staff will review the response and follow-up if needed. Please note: Queries are made part of the Legal Health Record. If you have any questions, please contact the author of this message via ITS. Dr. Garrett Ayala: Anemia is documented in the 05/14 ED Note and the History & Physical Assessments and in subsequent documentation without further specificity. Per the 05/15 Pulmonary Consult: "Chronic Anemia" is documented. History/Risk Factors: Atrial Fibrillation, CAD with Stent, CHF, Hyperlipidemia, Hypertension, CKD II, Hypothyroidism and Former Smoker. Clinical indicators: Presented to the ED on 05/14 via EMS with altered mental status and SOB after receiving a 2nd dose of the COVID vaccine. Admitted with CHF and Pleural Effusion, Acute Pulmonary Edema, Acute Encephalopathy and Anemia. Hemoglobin 05/14: 11.5, 05/15: 8.1, 05/18: 7.5 Hematocrit: 05/14: 33.3, 05/15: 24.9, 05/18: 23.5 Treatment: Intubated, admit to ICU, Typed/Crossed, no transfusion; IV Amidate, IV Quelicin, IV Versed, IV Propofol, IV Lasix, IV Levophed, NGT, INH Duoneb, IV Morphine Nephrology is not consulted. In order to capture the severity of condition, please clarify the type of anemia and etiology if known: o Chronic blood loss anemia o Hemolytic anemia o Anemia of chronic kidney disease o Anemia of Other Chronic Disease, please specify: o Unable to determine o Other, please specify (Last Form Revision: May 2019) MTDD
--- NOTE | 2020-05-20 11:16 | P.PN ---
Subjective This is a pleasant 89-year-old female who presented to the hospital with respiratory failure. Past medical history significant for chronic diastolic dysfunction, atrial fibrillation, hypertension and permanent pacemaker implantation. She is seen and examined sitting up in the recliner in no acute distress. She states she didn't get much sleep last night because she could not get warm. Her core temperature was 94.9. She had the bear hugger on all night and this morning her oral temp is 97.3. Overall her breathing is the same with n o real improvement. She denies chest pain, dizziness or palpitations. Blood pressure 109/63 heart rate 60 afebrile and maintaining oxygen saturation on nasal cannula. 24-hr urine output 350 ml. Laboratory data reviewed, WBC 5.3, hemoglobin 7.5, platelets 117, sodium 139, potassium 4.3, creatinine 1.87. Currently maintained on IV diuretics. Ultrasound of the chest performed revealing complex right-sided pleural fluid collection with separation with a pocket size of 8.1 cm and a moderate left pleural effusion with a pocket size of 5.2 cm. Pulmonology is following. GENERAL: Well-appearing, well-nourished and in no acute distress. Flat affect. NECK: Supple without JVD or thyromegaly. LUNGS: Diminished bilaterally, worse on the left. No clear rales auscultated. No wheezes or rhonchi. Respiration equal and unlabored. HEART: Irregular rate and rhythm with systolic ejection murmur at the base, no rubs or gallops. S1 and S2 heard. EXTREMITIES: Normal range of motion, no edema. No clubbing or cyanosis. Peripheral pulses intact. ASSESSMENT Respiratory failure with history of diastolic heart failure Hypothermia Pleural effusions Chronic persistent atrial fibrillation Chronic kidney disease Hypertension Permanent pacemaker implantation Aortic stenosis Dyslipidemia PLAN Renal function is worsening and patient doesn't seem to be diuresing on current dose of Lasix. Await pulmonary recommendations regarding pleural effusions. Further recommendations to follow based upon clinical course. Nurse Practitioner note has been reviewed, I agree with a documented findings and plan of care. Patient was seen and examined. Objective - Vital Signs Vital signs: Vital Signs Temp 97.3 F L 05/20/20 08:00 Pulse 61 05/20/20 08:00 Resp 18 05/20/20 08:00 BP 109/63 05/20/20 08:00 Pulse Ox 91 L 05/20/20 08:00 Intake & Output 05/19/20 05/20/20 05/20/20 18:59 06:59 18:59 Intake Total 275 125 Output Total 350 Balance -75 125 Weight 69.8 kg Intake: IV 50 Potassium Chloride 20 meq 50 In Water For Injection 1 100ml.bag @ 50 mls/hr IVPB ONCE STA Rx#: [id number] Oral 225 125 Output: Urine 350 Other: Voiding Method Diaper Diaper # Voids 1 - Labs CBC & Chem 7: 05/20/20 07:52 05/20/20 07:52 Labs: Abnormal Lab Results - Last 24 Hours (Table) 05/20/20 05/20/20 Range/Units 07:52 07:52 RBC 2.66 L (3.80-5.40) m/uL Hgb 7.5 L (11.4-16.0) gm/dL Hct 22.9 L (34.0-46.0) % RDW 18.4 H (11.5-15.5) % Plt Count 117 L (150-450) k/uL Lymphocytes # 0.7 L (1.0-4.8) k/uL Carbon Dioxide 35 H (22-30) mmol/L BUN 56 H (7-17) mg/dL Creatinine 1.87 H (0.52-1.04) mg/dL Microbiology - Last 24 Hours (Table) 05/15/20 01:00 Blood Culture - Preliminary Blood No Growth after 120 hours
--- NOTE | 2020-05-20 11:58 | P.PN ---
Subjective Progress Note Date: 05/20/20 Principal diagnosis: Acute exacerbation of congestive heart failure, altered mental status Patient was reevaluated today on 05/16/2020, remains in the ICU, intubated and mechanically ventilated., Patient could not be extubated yesterday because of her mental status, did not awake enough to follow simple instructions, then I decided to keep her overnight on IMV mode with a rate of 10, pressure support of 8, FiO2 at 40% and PEEP of 5. Patient remains on diuretics for her underlying congestive heart failure, ABG this morning showed a pO2 of 141 pCO2 of 53 pH of 7.37. Patient has been off sedation for the last 24 hours, she is definitely awake today, follows simple instructions, went ahead and recommended that she goes on pressure support of 12 initially and then changed to pressure support of 8/CPAP, and I plan to extubate the patient sometime later today if her gases on pressure support of 8 and CPAP are reasonable to BiPAP with IPAP of 12 and EPAP of 5. In the meantime I recommended that we continue with fluids at KVO and recommended Lasix at 40 mg IV push every 8 hours chest x-ray continues to show evidence of mild edema and small right-sided pleural effusion. Obviously the effusion is not large enough to affect her oxygenation, hence will not drain the pleural effusion at this point while she is on mechanical ventilation especially if she is already responding to diuretics. We have known from previous thoracentesis procedures that this fluid was transudative in nature. Patient had repeat ABG after 1 hour of CPAP and pressure support of 8, and ABG showed a pO2 of 82 pCO2 of 46 and pH of 7.43, this was on 30% FiO2, hence I would proceed with extubating this patient today to BiPAP, and eventually transitioned to nasal cannula. 05/17/2020, the patient is being seen in the ICU for a follow-up. The patient has been extubated and currently she is on 2 L of oxygen by nasal cannula. Initially there were plans to put her on a BiPAP postextubation and ultimately the patient did not require BiPAP and she was placed on oxygen by nasal cannula. She is doing well. She is resting comfortably. Head of the bed elevated is around 20. No major edema lower extremities. She still has a Esparza cath in place. She is on Lasix 40 mg every 8 hours and she is in a negative fluid balance. Morning chest x-ray still showing pulmonary edema along with that there is a right-sided pleural effusion. Nevertheless, the patient is responding well to diuretics. She is awake. She is conscious. She was able to tolerate some diet yesterday. She drank some soup. No chest pain. No angina. No palpitation. No cardiac arrhythmias. Her cardiac rhythm is the paced and there is an underlying atrial fibrillation the patient was restarted back on Eliquis. CAT scan of the brain was done yesterday and there was no acute abnormalities as there was concern that she would have had a damage because of her recurrent falls. Nevertheless, the CAT scan of the brain came back negative and the patient was kept on Eliquis as long-term anticoagulants. She is able to converse pH is following commands. She is answering questions. No aspiration. She was hypothermic and his temperature is up to 96.5 this morning. The fluid balance is -2.2 L. Progress note dated 05/18/2020. 89-year-old female, who was admitted to the hospital on May 14, for acute mental status changes, and CHF. Currently, she is on 2 L nasal cannula and not receiving any IV fluids. 4 acute hypoxemic respiratory failure, she initially was intubated on the , and extubated on May 16. We are going to reduce her Lasix dose today. Currently, she is resting comfortably. She is no acute distress. She is able to speak in full sentences. Her chest x-ray shows an imp roved pattern of interstitial and pulmonary edema. White blood count is 5.5, hemoglobin 7.5, hematocrit 23.5, and platelet count 126,000. Sodium is 140, potassium 3.5, chloride 98, CO2 35, anion gap 7, BUN 55, and creatinine 1.88. Cortisol level was 18. Chest x-ray does show a resolving pattern of congestive heart failure, with bilateral pleural effusions. On 05/19/2020 patient seen in follow-up on selective care unit, she that more sleepy today, apparently last night she was a bit more anxious and was given some Xanax. This made her a bit more sleepy, subsequently patient's FiO2 increased to 9 L. Follow-up chest x-ray today shows a diffuse pleural parenchymal changes that are stable in appearance. She continues on IV Lasix 40 mg twice daily, and she is only -165 ML fluid balance, over the last 24 hours, her indwelling catheter has been discontinued, her net fluid balance is diff icult to estimate as the patient's output is recorded in occurrences. She is up in the chair, denies any chest pain, subsequently today her FiO2 has been weaned back down . Liters, and pulse ox 96%, no fever or chills. On 05/20/2020 patient seen in follow-up on selective care unit, she is sitting up in a chair, currently on 3 L of oxygen pulse ox of 91%, afebrile, hemodynamically stable. She remains on diuretics, she is only modestly negative fluid balance, although her fluid balance is still difficult to estimate because patient is incontinent of urine. Follow-up chest x-ray showed bilateral pleural effusions, right greater than left, increased central vascularity and interstitium consistent with fluid overload. Ultrasound of the chest has been reviewed showing 8.1 cm complex septated fluid on the right, and 5.2 cm fluid pocket on the left. Patient did have a thoracentesis in the past, in February 2020 and pleural fluid analysis showed transudative fluid. Patient also had a thoracentesis in September 2019, and cytology was negative. Objective - Vital Signs Vital signs: Vital Signs Temp 97.3 F L 05/20/20 08:00 Pulse 60 05/20/20 11:15 Resp 18 05/20/20 08:00 BP 109/63 05/20/20 08:00 Pulse Ox 91 L 05/20/20 08:00 Intake & Output 05/19/20 05/20/20 05/20/20 18:59 06:59 18:59 Intake Total 275 125 Output Total 350 Balance -75 125 Weight 69.8 kg Intake: IV 50 Potassium Chloride 20 meq 50 In Water For Injection 1 100ml.bag @ 50 mls/hr IVPB ONCE STA Rx#: [id number] Oral 225 125 Output: Urine 350 Other: Voiding Method Diaper Diaper # Voids 1 - Exam GENERAL EXAM: Pleasant, 81-year-old white female, on 3 L of oxygen, sitting up in the recliner, comfortable in no apparent distress. HEAD: Normocephalic/atraumatic. EYES: Normal reaction of pupils, equal size. Conjunctiva pink, sclera white. NOSE: Clear with pink turbinates. THROAT: No erythema or exudates. NECK: No masses, no JVD, no thyroid enlargement, no adenopathy. CHEST: No chest wall deformity. Symmetrical expansion. LUNGS: Equal air entry with basilar crackles, CVS: Regular rate and rhythm, normal S1 and S2, no gallops, no murmurs, no rubs ABDOMEN: Soft, nontender. No hepatosplenomegaly, normal bowel sounds, no guarding or rigidity. EXTREMITIES: No clubbing, no edema, no cyanosis, 2+ pulses and upper and lower extremities. MUSCULOSKELETAL: Muscle strength and tone normal. SPINE: No scoliosis or deformity SKIN: No rashes CENTRAL NERVOUS SYSTEM: Alert and oriented -3. No focal deficits, tone is normal in all 4 extremities. PSYCHIATRIC: Alert and oriented -3. Appropriate affect. Intact judgment and insight. - Labs CBC & Chem 7: 05/20/20 07:52 05/20/20 07:52 Labs: Abnormal Lab Results - Last 24 Hours (Table) 05/20/20 05/20/20 Range/Units 07:52 07:52 RBC 2.66 L (3.80-5.40) m/uL Hgb 7.5 L (11.4-16.0) gm/dL Hct 22.9 L (34.0-46.0) % RDW 18.4 H (11.5-15.5) % Plt Count 117 L (150-450) k/uL Lymphocytes # 0.7 L (1.0-4.8) k/uL Carbon Dioxide 35 H (22-30) mmol/L BUN 56 H (7-17) mg/dL Creatinine 1.87 H (0.52-1.04) mg/dL Microbiology - Last 24 Hours (Table) 05/15/20 01:00 Blood Culture - Preliminary Blood No Growth after 120 hours Assessment and Plan Plan: Acute hypoxemic respiratory failure secondary to acute on chronic diastolic CHF, status post intubation on May 14, and extubation on May 16. Acute on chronic kidney injury. Bilateral pleural effusions, previous thoracentesis in February 2020 showed transudative fluid. Thoracentesis from September 2019 with negative cytology for malignancy Chronic atrial fibrillation. Status post permanent pacemaker insertion. Valvular heart disease, the form of aortic stenosis, and mitral regurgitation. Secondary pulmonary hypertension. Chronic anemia. History of CAD and previous PCI to the RCA Hypothyroidism. History of GERD. Hyperlipidemia. Acute metabolic encephalopathy, resolved, secondary to acute hypoxemic respiratory failure. Hypotension, resolved. Hypertension. Hyperlipidemia. Plan: Ultrasound of the chest has been reviewed, showing septated fluid pocket on the right, and moderate sized left-sided pleural effusion, continue diuretics, will ask interventional radiology to do right-sided thoracentesis in view of complex pleural fluid pocket. We'll send the fluid for cytology, pleural fluid cultures and pleural fluid analysis. Hold anticoagulation. Continue diuretics. We'll continue to follow. I performed a history & physical examination of the patient and discussed their management with my nurse practitioner, Magalys Cruz. I reviewed the nurse practitioner's note and agree with the documented findings and plan of care. Lung sounds are positive for diminished breath sounds. The findings and the impression was discussed with the patient. I attest to the documentation by the nurse practitioner. Time with Patient: Less than 30
--- NOTE | 2020-05-20 12:12 | P.PN ---
Subjective Progress Note Date: 05/20/20 Patient was up in the chair today when I saw her. She is on 3 L of oxygen. She denies any shortness of breath or dyspnea. Her mentation is still not that great and she did not get good sleep last night. She was slightly hypothermic last night requiring a bear hugger. Objective - Vital Signs Vital signs: Vital Signs Temp 97.3 F L 05/20/20 08:00 Pulse 60 05/20/20 11:15 Resp 18 05/20/20 08:00 BP 109/63 05/20/20 08:00 Pulse Ox 91 L 05/20/20 08:00 Intake & Output 05/19/20 05/20/20 05/20/20 18:59 06:59 18:59 Intake Total 275 125 Output Total 350 Balance -75 125 Weight 69.8 kg Intake: IV 50 Potassium Chloride 20 meq 50 In Water For Injection 1 100ml.bag @ 50 mls/hr IVPB ONCE STA Rx#: [id number] Oral 225 125 Output: Urine 350 Other: Voiding Method Diaper Diaper # Voids 1 - Exam General: The patient is awake and alert, in no distress Eye: there is normal conjunctiva bilaterally. Neck: The neck is supple, there is no JVD. Cardiovascular: Normal S1-S2, no S3-S4, no murmurs. Respiratory: Lungs clear to auscultation bilaterally Gastrointestinal: Abdomen is soft, nontender Musculoskeletal: There is no pedal edema. Neurological:. Speech is normal. Skin: Skin is warm and dry - Labs CBC & Chem 7: 05/20/20 07:52 05/20/20 07:52 Labs: Abnormal Lab Results - Last 24 Hours (Table) 05/20/20 05/20/20 Range/Units 07:52 07:52 RBC 2.66 L (3.80-5.40) m/uL Hgb 7.5 L (11.4-16.0) gm/dL Hct 22.9 L (34.0-46.0) % RDW 18.4 H (11.5-15.5) % Plt Count 117 L (150-450) k/uL Lymphocytes # 0.7 L (1.0-4.8) k/uL Carbon Dioxide 35 H (22-30) mmol/L BUN 56 H (7-17) mg/dL Creatinine 1.87 H (0.52-1.04) mg/dL Microbiology - Last 24 Hours (Table) 05/15/20 01:00 Blood Culture - Preliminary Blood No Growth after 120 hours Assessment and Plan Assessment: Patient is an 89-year-old female with known history of diastolic congestive heart failure with ejection fraction 55-60%, mild aortic stenosis, atrial fibrillation, GERD, and multiple other comorbid conditions who presented to the emergency department via EMS secondary to altered mental status and difficulty breathing. She had received her Covid vaccine second dose one day prior. On arrival to the ER she was noted be hypothermic with a rectal temperature of 85, initial blood pressure was 148/81 pulse 72, and respiratory rate 22. Covid testing was negative. Chest x-ray showed congestive heart failure with right- sided pleural effusion and pulmonary interstitial edema. In the ER she became more confused with increasing respiratory distress and was subsequently intubated. She was admitted to the ICU for acute exacerbation of congestive heart failure with acute hypoxic respiratory failure. She was started on IV Lasix. She did have hypotension and required a Levophed drip. She also required a warming blanket secondary to hypothermia. Critical care and cardiology were consulted. Cardiology agreed with obtaining a repeat echo, which was unchagned, and continuing Lasix. She was able to come off 05/15, propofol was held but she was not following commands. She continued to have problems with hypothermia. She was successfully extubated to bipap on 05/16 and was able to be weaned to 2L by the morning of 05/17. Her repeat head CT was negative and her mentation continued to improve. Acute exacerbation of diastolic congestive heart failure with ejection fraction 55-60%, Right pleural effusion with acute hypoxic respiratory failure - Patient was started on IV Lasix since admission. Repeat chest x-ray today showed interstitial edema with elevated BNP -IR consulted for possible thoracentesis Toxic metabolic encephalopathy , resolved -Computed tomography scan of the head was no acute intracranial finding Hypokalemia - replaced Hypothermia on presentation, resolved - undetermined cause - TSH normal - AM cortisol within acceptable range FREDO on CKD III, improving -Likely secondary to hepatorenal syndrome - Cr stable at baseline Chronic A. fib -Continue anticoagulation with Eliquis -Coreg Anemia of chronic disease - at baseline - follow in the outpatient setting Hypotension on presentation requiring vasopressors for a short period of time -Exact etiology unclear to me Chronic: Coronary artery disease status post PCI Dyslipidemia GERD Hypothyroidism Hypotnesion, resolved DVT prophylaxis: katherin Discussed with: patient, nursing Anticipated discharge: Tomorrow Anticipated discharge place: rehab A total of 35 minutes was spent on the care of this complex patient more than 50% of the time was spent in counseling and care coordination.
--- NOTE | 2020-05-20 15:42 | US ---
EXAMINATION TYPE: US thoracentesis DATE OF EXAM: 05/20/2020 COMPARISON: CT 05/04/2020, chest x-ray 05/20/2020 HISTORY: Right Pleural effusion. FINDINGS: Maximal barrier technique was utilized. The skin overlying a suitable pocket of fluid was localized and the overlying skin prepped and draped. Lidocaine was used for local anesthesia. Ultras ound was used with sterile technique. A 5 Kinyarwanda catheter over guide needle was advanced into the pl eural fluid collection using ultrasound guidance and subsequently only 2 to 3 cc of serosanguineous f luid were obtained for laboratory analysis.. There is no immediate complication. The patient discha rged in stable condition without complication. Post procedure chest x-ray x-ray pending. Fluid collec tion is multilocular. IMPRESSION: STATUS POST ULTRASOUND GUIDED THORACENTESIS, POST PROCEDURE CHEST X-RAY PENDING. THIS VA OCEDURE WAS PERFORMED BY THE UNDERSIGNED.
--- NOTE | 2020-05-20 15:43 | XR ---
EXAMINATION TYPE: XR chest 1V portable DATE OF EXAM: 05/20/2020 COMPARISON: Chest x-ray 05/20/2020 HISTORY: Status post right thoracentesis TECHNIQUE: Single frontal view of the chest is obtained. FINDINGS: There is no significant interval change. No evident pneumothorax. IMPRESSION: No evident complication status post thoracentesis.
[2020-05-20 17:20] LABS: Appearance,BF Clear; Color,BF Orange; Nucleated Cells, Body Fluid 450 /uL; RBC, Body Fluid 16200 /uL
[2020-05-20 17:28] LABS: Mononuclear WBC,Body Fluid 82 %; Polynuclear WBC,Body Fluid 18 %; Total Cells Counted,Body Fluid 100
[2020-05-20 20:42] VITALS: RESP 18
[2020-05-20] MEDS: MELATONIN 5 MG TABLET PO SCH (20:44)
[2020-05-21 02:24] LABS: Total Protein, Body Fluid 2120 mg/dL
[2020-05-21 02:52] LABS: Glucose, BF Source Pleural Fluid; Glucose, Body Fluid 41 mg/dL; LDH, Body Fluid Source Pleural Fluid
[2020-05-21] MEDS: LEVOTHYROXINE 112 MCG TAB PO SCH (06:14)
[2020-05-21] MEDS: PANTOPRAZOLE 40 MG TABLET PO SCH (06:14)
[2020-05-21 08:08] LABS: Anisocytosis Slight; Basophils % (A) 0 %; Eosinophils # (A) 0.2 k/uL (0-0.7); Eosinophils % (A) 4 %; HCT 23.8 % (34.0-46.0); HGB 7.5 gm/dL (11.4-16.0); Hypochromasia Moderate; Lymphocytes # (A) 0.6 k/uL (1.0-4.8); Lymphocytes % (A) 12 %; MCH 28.1 pg (25.0-35.0); MCHC 31.7 g/dL (31.0-37.0); MCV 88.7 fL (80.0-100.0); Mean Platelet Volume 8.4; Monocytes # (A) 0.3 k/uL (0-1.0); Monocytes % (A) 7 %; Neutrophils # (A) 3.5 k/uL (1.3-7.7); Neutrophils % (A) 75 %; Platelet Count 127 k/uL (150-450); RBC 2.68 m/uL (3.80-5.40); RDW 18.1 % (11.5-15.5); WBC 4.7 k/uL (3.8-10.6)
[2020-05-21 08:18] LABS: Calcium 8.5 mg/dL (8.4-10.2); Potassium 3.8 mmol/L (3.5-5.1)
[2020-05-21] MEDS: IPRATROPIUM-ALBUTEROL 3 ML NEB INHALATION SCH ×3 (08:43→15:34)
[2020-05-21] MEDS: ISOSORBIDE MONONITRATE ER 30 MG TAB.ER.24H PO SCH (09:04)
[2020-05-21] MEDS: carvediloL 3.125 MG TAB PO SCH (09:04)
[2020-05-21] MEDS: FUROSEMIDE 10 MG/ML 4 ML VIAL IV SCH (09:04)
[2020-05-21] MEDS: PRAVASTATIN SODIUM 40 MG TAB PO SCH (09:04)
[2020-05-21] MEDS ORDERED: LACTULOSE 20 GM/30 ML CUP PO ONE (09:16)
--- NOTE | 2020-05-21 09:23 | P.DS ---
Providers Date of admission: 05/14/20 22:41 Expected date of discharge: 05/21/20 Attending physician: Joce Rubalcava MD Consults: 05/14/20 22:41 Consult Physician Stat Consulting Provider: Willis Lewis Consult Reason/Comments: acute vent dependant resp failure Do you want consulting provider notified?: Already Contacted Consult Physician Urgent Consulting Provider: [facility] Consult Reason/Comments: aechf Do you want consulting provider notified?: Yes 05/15/20 09:51 Consult Physician Stat Consulting Provider: Kevan Begum Consult Reason/Comments: chf Do you want consulting provider notified?: Already Contacted Primary care physician: Chris Heath MD Hospital Course: Patient is an 89-year-old female with known history of diastolic conge stive heart failure with ejection fraction 55-60%, mild aortic stenosis, atrial fibrillation, GERD who presented to the emergency department via EMS secondary to altered mental status and difficulty breathing. She had received her Covid vaccine second dose one day prior. On arrival to the ER she was noted be hypothermic with a rectal temperature of 85, initial blood pressure was 148/81 pulse 72, and respiratory rate 22. Covid testing was negative. Chest x-ray showed congestive heart failure with right- sided pleural effusion and pulmonary interstitial edema. In the ER she became more confused with increasing respiratory distress and was subsequently intubated. She was admitted to the ICU for acute exacerbation of congestive heart failure with acute hypoxic respiratory failure. She was started on IV Lasix. She did have hypotension and required a Levophed drip. She also required a warming blanket secondary to hypothermia. Critical care and cardiology were consulted. Cardiology agreed with obtaining a repeat echo, which was unchagned, and continuing Lasix. She was successfully extubated to bipap on 05/16 and was able to be weaned to 2L by the morning of 05/17. Her repeat head CT was negative and her mentation continued to improve. Acute exacerbation of diastolic congestive heart failure with ejection fraction 55-60%, Right pleural effusion with acute hypoxic respiratory failure - Patient was started on IV Lasix since admission with good response. Repeat chest x-ray today showed interstitial edema with elevated BNP - IR consulted for possible thoracentesis only minimal fluid was removed -Continue Lasix 40 mg twice daily Toxic metabolic encephalopathy , resolved -Computed tomography scan of the head was no acute intracranial finding Hypokalemia - replaced Hypothermia on presentation, resolved - undetermined cause - TSH normal - AM cortisol within acceptable range FREDO on CKD III, improved -Likely secondary to hepatorenal syndrome - Cr stable at baseline around 1.8 Chronic A. fib -Continue anticoagulation with Eliquis -Coreg Anemia of chronic disease - at baseline - follow in the outpatient setting Hypotension on presentation requiring vasopressors for a short period of time -Exact etiology unclear to me now blood pressure within acceptable range Chronic: Coronary artery disease status post PCI Dyslipidemia GERD Hypothyroidism Hypotnesion, resolved Patient will be discharged to [facility] on the [place] in a stable condition. She will follow-up with cardiology as directed. For further details about this hospitalization please refer to the electronic chart. Patient Condition at Discharge: Stable Plan - Discharge Summary Discharge Rx Participant: No New Discharge Prescriptions: New Furosemide [Lasix] 40 mg PO BID #60 tablet Melatonin 5 mg PO HS tablet Continue Levothyroxine Sodium 112 mcg PO DAILY@0600 Ergocalciferol (Vitamin D2) [Vitamin D2] 50,000 unit PO SA@2100 carvediloL [Coreg] 3.125 mg PO BID@0900,2100 Pravastatin Sodium [Pravachol] 40 mg PO DAILY@0900 Apixaban [Eliquis] 2.5 mg PO BID@0900,2100 Pantoprazole [Protonix] 40 mg PO DAILY@0900 Potassium Chloride ER [K-Dur 10] 10 meq PO DAILY@0900 Isosorbide Mononitrate ER [Imdur] 30 mg PO DAILY Changed Ipratropium-Albuterol Nebulize [Duoneb 0.5 mg-3 mg/3 ml Soln] 3 ml INHALATION RT-Q4H PRN #0 PRN Reason: Wheezing Discontinued ALPRAZolam [Xanax] 0.5 mg PO HS@2100 Acetaminophen [Tylenol Extra Strength] 500 - 1,000 mg PO Q8H PRN PRN Reason: Pain hydrALAZINE HCL [Apresoline] 25 mg PO TID@0900,1300,2100 Spironolactone [Aldactone] 25 mg PO HS Furosemide [Lasix] 20 mg PO DAILY 30 Days #30 tab Furosemide [Lasix] 40 mg PO DAILY #0 Discharge Medication List Ergocalciferol (Vitamin D2) [Vitamin D2] 50,000 unit PO SA@2100 12/03/17 [History] Levothyroxine Sodium 112 mcg PO DAILY@0600 12/03/17 [History] carvediloL [Coreg] 3.125 mg PO BID@09,209909/16/19 [History] Apixaban [Eliquis] 2.5 mg PO BID@0900,209903/05/20 [History] Pantoprazole [Protonix] 40 mg PO DAILY@89903/05/20 [History] Pravastatin Sodium [Pravachol] 40 mg PO DAILY@89903/05/20 [History] Isosorbide Mononitrate ER [Imdur] 30 mg PO DAILY 04/29/20 [History] Potassium Chloride ER [K-Dur 10] 10 meq PO DAILY@89904/29/20 [History] Furosemide [Lasix] 40 mg PO BID #60 tablet 05/21/20 [Rx] Ipratropium-Albuterol Nebulize [Duoneb 0.5 mg-3 mg/3 ml Soln] 3 ml INHALATION RT-Q4H PRN #0 05/21/20 [Rx] Melatonin 5 mg PO HS tablet 05/21/20 [Rx] Follow up Appointment(s)/Referral(s): Chris Heath MD [Primary Care Provider] - 1-2 days Discharge Disposition: TRANSFER TO SNF/ECF
--- NOTE | 2020-05-21 10:29 | CDI ---
Documentation Clarification Form Date: 05/20/2020 09:42:00 AM From: Beth Keyes CCS, CCDS Admit Date: 05/14/2020 10:41:00 PM Patient Name: Lolly Simon Visit Number: [id number] Discharge Date: ATTENTION: The Clinical Documentation Specialists (CDI) and [facility] Coding Staff appreciate your assistance in clarifying documentation. Please respond to the clarification below the line at the bottom and electronically sign. The CDI & [facility] Coding staff will review the response and follow-up if needed. Please note: Queries are made part of the Legal Health Record. If you have any questions, please contact the author of this message via ITS. Dr. Garrett Ayala: Per the 05/14 History & Physical: "in the ED, patient was found obtunded, her ABG showed acute respiratory acidosis with hypercapnia, CXR suggestive of pleural effusion and pulmonary edema. Blood work showed stable anemia, thrombocytopenia , elevated liver enzymes, no leukocytosis but patient was hypothermic. Patient was intubated, CT of the head and neck done, as patient's son also reported that she had fell and hit her head today, this returned showing no acute intracranial pathology." H/P Assessment: Acute metabolic encephalopathy, Acute Hypercapnic Respiratory Failure, Acute CHF exacerbation, Chronic anemia, FREDO, Hypothermia, Elevated liver enzymes with possible passive hepatic congestion, Atrial Fibrillation with Pacemaker on Eliquis, Thrombocytopenia. Patient history/risk factors per the 05/14 History & Physical Past Medical History: Atrial Fibrillation, CAD, CHF, Hyperlipidemia, Hypertension, CKD II, Hypothyroidism, Glaucoma, Former smoker. Clinical Indicators: Presented to the ED on 05/14 via EMS with Altered Mental Status. The patient received her second COVID vaccine yesterday. After vaccine was given, the patient became acutely confused and SOB. 05/14 VS: T 85, P 72 - 59, R 22 - 24 (SOB), BP 148/81, PO 100 3Lnc BMI: 25.6 05/14 LAB: WBC 5.0, Hgb 11.0, Pl Ct 121, Lymph 0.2, PT 13.2, INR 1.3, BUN 67, Cr 1.84, Glucose 117, Calcium 7.7, AST 278, ALT 121, Alk Phos 155, Albumin 3.3 05/14: COVID: Negative 05/15 Blood Gas ABG: pH 7.48^, pO2 203, HCO3 28, Total CO2 29, O2 Sat 100.0 05/14 Sputum Culture Final: Negative 05/15 Blood Culture Preliminary: no growth @ 120 hours 05/14 CT Abdomen/Pelvis: Extensive atherosclerotic vascular disease. Pleural effusions and pulmonary infiltrates and mild cardiomegaly suggestive of chronic CHF. 05/14 CT Brain: Cerebral atrophy. Ch small vessel ischemia. 05/14 CXR: Congestive heart failure with right pleural effusions. Small left pleural effusion. Pulmonary interstitial and airspace edema. There is increased edema on the right side compared to old exam. Treatment 05/14: Admit to ICU, Neuro checks, IV Amidate, IV Quelicin, IV Versed, IV Propofol, IV Lasix, O2 3-4Lnc, subsequently intubated. 05/15: IV Levophed, INH Duoneb, IV Morphine, po KDur 05/16 Extubated to BiPAP In your professional opinion, can you please specify the if the following was present: Septic Shock Any associated organ failure Cardiogenic Shock Cause Other Shock, please specify Other, please specify: Unable to determine (Last Revision: December 2016) no infection or sepsis MTDD
[2020-05-21 10:55] VITALS: TEMP 97.4
--- NOTE | 2020-05-21 11:32 | P.PN ---
Subjective This is a pleasant 89-year-old female who presented to the hospital with respiratory failure. Past medical history significant for chronic diastolic dysfunction, atrial fibrillation, hypertension and permanent pacemaker implantation. She is seen and examined sitting up in the recliner in no acute distress. She states she did not sleep well last night due to a change in her sleeping pill from xanax to melatonin. She feels like her breathing is stable and better since admission, but not back to baseline. She underwent thoracentesis with IR yesterday. The fluid collection was multi-locular. Minimal fluid was aspirated for lab analysis. Repeat chest xray reveals no immediate complication s/p thoracentesis. Laboratory data reviewed, WBC 4.7, hgb 7.5, plt 127, sodium 140, potassium 3.8, creatinine 1.79. Currently maintained on lasix 40 mg IV BID, coreg 3.125 mg BID, imdur 30 mg daily and pravastatin 40 mg daily. 24-hr urine output is 300 ml. However, she is incontinent. GENERAL: Well-appearing, well-nourished and in no acute distress. Flat affect. NECK: Supple without JVD or thyromegaly. LUNGS: Diminished bilaterally. No clear rales auscultated. No wheezes or rhonchi. Respiration equal and unlabored. HEART: Irregular rate and rhythm with systolic ejection murmur at the base, no rubs or gallops. S1 and S2 heard. EXTREMITIES: Normal range of motion, no edema. No clubbing or cyanosis. Peripheral pulses intact. ASSESSMENT Respiratory failure with history of diastolic heart failure Hypothermia Pleural effusions Chronic persistent atrial fibrillation Chronic kidney disease Hypertension Permanent pacemaker implantation Aortic stenosis Dyslipidemia PLAN Continue current medical regimen. Clinically she is stable. Plan is for discharge to [facility]. Follow up in the office with Dr. Rao upon discharge. Nurse Practitioner note has been reviewed, I agree with a documented findings and plan of care. Patient was seen and examined. Objective - Vital Signs Vital signs: Vital Signs Temp 97.1 F L 05/20/20 20:00 Pulse 60 05/21/20 08:55 Resp 18 05/21/20 04:00 BP 116/66 05/21/20 04:00 Pulse Ox 100 05/21/20 04:00 Intake & Output 05/20/20 05/21/20 05/21/20 18:59 06:59 18:59 Intake Total 601 240 Output Total 300 Balance 301 240 Weight 65.5 kg Intake: Oral 601 240 Output: Urine 300 Other: Voiding Method Diaper # Voids 4 1 - Labs CBC & Chem 7: 05/21/20 07:36 05/21/20 07:36 Labs: Abnormal Lab Results - Last 24 Hours (Table) 05/21/20 05/21/20 Range/Units 07:36 07:36 RBC 2.68 L (3.80-5.40) m/uL Hgb 7.5 L (11.4-16.0) gm/dL Hct 23.8 L (34.0-46.0) % RDW 18.1 H (11.5-15.5) % Plt Count 127 L (150-450) k/uL Lymphocytes # 0.6 L (1.0-4.8) k/uL Carbon Dioxide 35 H (22-30) mmol/L BUN 59 H (7-17) mg/dL Creatinine 1.79 H (0.52-1.04) mg/dL Glucose 104 H (74-99) mg/dL Microbiology - Last 24 Hours (Table) 05/20/20 15:18 Gram Stain - Preliminary Pleural Fluid Body Fluid Culture - Preliminary 05/15/20 01:00 Blood Culture - Final Blood No Growth after 144 hours 05/20/20 15:18 Acid Fast Bacilli Culture - Preliminary Pleural Fluid 05/20/20 15:18 Anaerobic Culture - Preliminary Pleural Fluid 05/20/20 15:18 Fungal Culture - Preliminary Pleural Fluid
[2020-05-21 12:20] VITALS: BP 108/63
--- NOTE | 2020-05-21 13:39 | P.PN ---
Subjective Progress Note Date: 05/21/20 Principal diagnosis: Acute exacerbation of congestive heart failure, altered mental status Patient was reevaluated today on 05/16/2020, remains in the ICU, intubated and mechanically ventilated., Patient could not be extubated yesterday because of her mental status, did not awake enough to follow simple instructions, then I decided to keep her overnight on IMV mode with a rate of 10, pressure support of 8, FiO2 at 40% and PEEP of 5. Patient remains on diuretics for her underlying congestive heart failure, ABG this morning showed a pO2 of 141 pCO2 of 53 pH of 7.37. Patient has been off sedation for the last 24 hours, she is definitely awake today, follows simple instructions, went ahead and recommended that she goes on pressure support of 12 initially and then changed to pressure support of 8/CPAP, and I plan to extubate the patient sometime later today if her gases on pressure support of 8 and CPAP are reasonable to BiPAP with IPAP of 12 and EPAP of 5. In the meantime I recommended that we continue with fluids at KVO and recommended Lasix at 40 mg IV push every 8 hours chest x-ray continues to show evidence of mild edema and small right-sided pleural effusion. Obviously the effusion is not large enough to affect her oxygenation, hence will not drain the pleural effusion at this point while she is on mechanical ventilation especially if she is already responding to diuretics. We have known from previous thoracentesis procedures that this fluid was transudative in nature. Patient had repeat ABG after 1 hour of CPAP and pressure support of 8, and ABG showed a pO2 of 82 pCO2 of 46 and pH of 7.43, this was on 30% FiO2, hence I would proceed with extubating this patient today to BiPAP, and eventually transitioned to nasal cannula. 05/17/2020, the patient is being seen in the ICU for a follow-up. The patient has been extubated and currently she is on 2 L of oxygen by nasal cannula. Initially there were plans to put her on a BiPAP postextubation and ultimately the patient did not require BiPAP and she was placed on oxygen by nasal cannula. She is doing well. She is resting comfortably. Head of the bed elevated is around 20. No major edema lower extremities. She still has a Esparza cath in place. She is on Lasix 40 mg every 8 hours and she is in a negative fluid balance. Morning chest x-ray still showing pulmonary edema along with that there is a right-sided pleural effusion. Nevertheless, the patient is responding well to diuretics. She is awake. She is conscious. She was able to tolerate some diet yesterday. She drank some soup. No chest pain. No angina. No palpitation. No cardiac arrhythmias. Her cardiac rhythm is the paced and there is an underlying atrial fibrillation the patient was restarted back on Eliquis. CAT scan of the brain was done yesterday and there was no acute abnormalities as there was concern that she would have had a damage because of her recurrent falls. Nevertheless, the CAT scan of the brain came back negative and the patient was kept on Eliquis as long-term anticoagulants. She is able to converse pH is following commands. She is answering questions. No aspiration. She was hypothermic and his temperature is up to 96.5 this morning. The fluid balance is -2.2 L. Progress note dated 05/18/2020. 89-year-old female, who was admitted to the hospital on May 14, for acute mental status changes, and CHF. Currently, she is on 2 L nasal cannula and not receiving any IV fluids. 4 acute hypoxemic respiratory failure, she initially was intubated on the , and extubated on May 16. We are going to reduce her Lasix dose today. Currently, she is resting comfortably. She is no acute distress. She is able to speak in full sentences. Her chest x-ray shows an imp roved pattern of interstitial and pulmonary edema. White blood count is 5.5, hemoglobin 7.5, hematocrit 23.5, and platelet count 126,000. Sodium is 140, potassium 3.5, chloride 98, CO2 35, anion gap 7, BUN 55, and creatinine 1.88. Cortisol level was 18. Chest x-ray does show a resolving pattern of congestive heart failure, with bilateral pleural effusions. On 05/19/2020 patient seen in follow-up on selective care unit, she that more sleepy today, apparently last night she was a bit more anxious and was given some Xanax. This made her a bit more sleepy, subsequently patient's FiO2 increased to 9 L. Follow-up chest x-ray today shows a diffuse pleural parenchymal changes that are stable in appearance. She continues on IV Lasix 40 mg twice daily, and she is only -165 ML fluid balance, over the last 24 hours, her indwelling catheter has been discontinued, her net fluid balance is diff icult to estimate as the patient's output is recorded in occurrences. She is up in the chair, denies any chest pain, subsequently today her FiO2 has been weaned back down . Liters, and pulse ox 96%, no fever or chills. On 05/20/2020 patient seen in follow-up on selective care unit, she is sitting up in a chair, currently on 3 L of oxygen pulse ox of 91%, afebrile, hemodynamically stable. She remains on diuretics, she is only modestly negative fluid balance, although her fluid balance is still difficult to estimate because patient is incontinent of urine. Follow-up chest x-ray showed bilateral pleural effusions, right greater than left, increased central vascularity and interstitium consistent with fluid overload. Ultrasound of the chest has been reviewed showing 8.1 cm complex septated fluid on the right, and 5.2 cm fluid pocket on the left. Patient did have a thoracentesis in the past, in February 2020 and pleural fluid analysis showed transudative fluid. Patient also had a thoracentesis in September 2019, and cytology was negative. On 05/21/2020 patient seen in follow-up on [facility] care unit. She is calm and comfortable, sitting up in a chair, denies any acute distress, she remains on 2 L of oxygen pulse ox 96%, hemodynamically she is stable, she's had no fever, patient is status post ultrasound-guided thoracentesis of the right pleural effusion which was septated and complex. Was done by interventional radiology at our request, and only 3 cc of fluid was extracted and was sent for cultures. She remains on IV Lasix, she is in negative fluid balance, some trace pretibial edema in lower extremities. Overall vital signs have been stable. No chest pain. Today's lab work has been noted. Patient stated she is feels weak, and does get short of breath with exertion, sounds reveal some bibasilar crackles. No acute events overnight. Discharge is pending for discharge to the [facility] on the [facility] today. Objective - Vital Signs Vital signs: Vital Signs Temp 97.4 F L 05/21/20 08:00 Pulse 60 05/21/20 12:00 Resp 18 02/25/21 12:00 BP 108/63 05/21/20 12:00 Pulse Ox 96 05/21/20 12:00 Intake & Output 05/20/20 05/21/20 05/21/20 18:59 06:59 18:59 Intake Total 601 240 Output Total 300 Balance 301 240 Weight 65.5 kg Intake: Oral 601 240 Output: Urine 300 Other: Voiding Method Diaper # Voids 4 1 1 - Exam GENERAL EXAM: Pleasant, 81-year-old white female, on 2 L of oxygen, sitting up in the recliner, comfortable in no apparent distress. HEAD: Normocephalic/atraumatic. EYES: Normal reaction of pupils, equal size. Conjunctiva pink, sclera white. NOSE: Clear with pink turbinates. THROAT: No erythema or exudates. NECK: No masses, no JVD, no thyroid enlargement, no adenopathy. CHEST: No chest wall deformity. Symmetrical expansion. LUNGS: Equal air entry with basilar crackles, CVS: Regular rate and rhythm, normal S1 and S2, no gallops, no murmurs, no rubs ABDOMEN: Soft, nontender. No hepatosplenomegaly, normal bowel sounds, no guarding or rigidity. EXTREMITIES: No clubbing, no edema, no cyanosis, 2+ pulses and upper and lower extremities. MUSCULOSKELETAL: Muscle strength and tone normal. SPINE: No scoliosis or deformity SKIN: No rashes CENTRAL NERVOUS SYSTEM: Alert and oriented -3. No focal deficits, tone is normal in all 4 extremities. PSYCHIATRIC: Alert and oriented -3. Appropriate affect. Intact judgment and insight. - Labs CBC & Chem 7: 05/21/20 07:36 05/21/20 07:36 Labs: Abnormal Lab Results - Last 24 Hours (Table) 05/21/20 05/21/20 Range/Units 07:36 07:36 RBC 2.68 L (3.80-5.40) m/uL Hgb 7.5 L (11.4-16.0) gm/dL Hct 23.8 L (34.0-46.0) % RDW 18.1 H (11.5-15.5) % Plt Count 127 L (150-450) k/uL Lymphocytes # 0.6 L (1.0-4.8) k/uL Carbon Dioxide 35 H (22-30) mmol/L BUN 59 H (7-17) mg/dL Creatinine 1.79 H (0.52-1.04) mg/dL Glucose 104 H (74-99) mg/dL Microbiology - Last 24 Hours (Table) 05/20/20 15:18 Gram Stain - Preliminary Pleural Fluid Body Fluid Culture - Preliminary 05/15/20 01:00 Blood Culture - Final Blood No Growth after 144 hours 05/20/20 15:18 Acid Fast Bacilli Culture - Preliminary Pleural Fluid 05/20/20 15:18 Anaerobic Culture - Preliminary Pleural Fluid 05/20/20 15:18 Fungal Culture - Preliminary Pleural Fluid Assessment and Plan Plan: Acute hypoxemic respiratory failure secondary to acute on chronic diastolic CHF, status post intubation on May 14, and extubation on May 16. Acute on chronic kidney injury. Bilateral pleural effusions, previous thoracentesis in February 2020 showed transudative fluid. Thoracentesis from September 2019 with negative cytology for malignancy Chronic atrial fibrillation. Status post permanent pacemaker insertion. Valvular heart disease, the form of aortic stenosis, and mitral regurgitation. Secondary pulmonary hypertension. Chronic anemia. History of CAD and previous PCI to the RCA Hypothyroidism. History of GERD. Hyperlipidemia. Acute metabolic encephalopathy, resolved, secondary to acute hypoxemic respiratory failure. Hypotension, resolved. Hypertension. Hyperlipidemia. Plan: Vital signs have been stable, no fever or chills, no worsening dyspnea, patient has been in negative fluid balance. No acute events overnight, discharge is pending for ECF today. Follow-up with Dr. Angel in the office in 7-10 days I performed a history & physical examination of the patient and discussed their management with my nurse practitioner, Magalys Cruz. I reviewed the nurse practitioner's note and agree with the documented findings and plan of care. Lung sounds are positive for diminished breath sounds. The findings and the impression was discussed with the patient. I attest to the documentation by the nurse practitioner. Time with Patient: Less than 30
[2020-05-21 15:43] VITALS: PULSE 62
== END 2020-05-21 15:59 | DRG 291 ==
LOC: EC 18:15 → 2SICU 22:41 → 3SCARD 05-18 15:59
PROVIDERS: ADMIT Internal Medicine; ATTEND Internal Medicine
PROC: 0BH17EZ Insertion of Endotracheal Airway into Trachea, Via Natural or Artificial Opening (ICD-10-PCS; principal; 2020-05-14)
PROC: 5A1945Z Respiratory Ventilation, 24-96 Consecutive Hours (ICD-10-PCS; principal; 2020-05-14)
PROC: 3E033XZ Introduction of Vasopressor into Peripheral Vein, Percutaneous Approach (ICD-10-PCS; 2020-05-15)
PROC: 0D9670Z Drainage of Stomach with Drainage Device, Via Natural or Artificial Opening (ICD-10-PCS; 2020-05-15)
PROC: 5A09457 Assistance with Respiratory Ventilation, 24-96 Consecutive Hours, Continuous Positive Airway Pressure (ICD-10-PCS; 2020-05-16)
PROC: 0W993ZX Drainage of Right Pleural Cavity, Percutaneous Approach, Diagnostic (ICD-10-PCS; 2020-05-20)
DX: I13.0 Hypertensive heart and chronic kidney disease with heart failure and stage 1 through stage 4 chronic kidney disease, or unspecified chronic kidney disease (principal); I50.33 Acute on chronic diastolic (congestive) heart failure; J96.02 Acute respiratory failure with hypercapnia; K76.7 Hepatorenal syndrome; J96.01 Acute respiratory failure with hypoxia; G92 Toxic encephalopathy; J91.8 Pleural effusion in other conditions classified elsewhere; N17.9 Acute kidney failure, unspecified; E87.2 Acidosis; I48.21 Permanent atrial fibrillation; T68.XXXA Hypothermia, initial encounter; I95.9 Hypotension, unspecified; I27.29 Other secondary pulmonary hypertension; D69.6 Thrombocytopenia, unspecified; D63.1 Anemia in chronic kidney disease; N18.30 Chronic kidney disease, stage 3 unspecified; Z66 Do not resuscitate; Z20.822 Contact with and (suspected) exposure to COVID-19; I25.10 Atherosclerotic heart disease of native coronary artery without angina pectoris; I08.3 Combined rheumatic disorders of mitral, aortic and tricuspid valves; R29.6 Repeated falls; E87.6 Hypokalemia; R32 Unspecified urinary incontinence; M54.9 Dorsalgia, unspecified; K21.9 Gastro-esophageal reflux disease without esophagitis; E89.0 Postprocedural hypothyroidism; K57.30 Diverticulosis of large intestine without perforation or abscess without bleeding; H40.9 Unspecified glaucoma; E78.5 Hyperlipidemia, unspecified; Z79.01 Long term (current) use of anticoagulants; Z79.890 Hormone replacement therapy; Z79.899 Other long term (current) drug therapy; Z87.891 Personal history of nicotine dependence; Z90.49 Acquired absence of other specified parts of digestive tract; Z90.710 Acquired absence of both cervix and uterus; Z90.89 Acquired absence of other organs; Z95.5 Presence of coronary angioplasty implant and graft; Z96.651 Presence of right artificial knee joint; Z87.39 Personal history of other diseases of the musculoskeletal system and connective tissue; Z98.42 Cataract extraction status, left eye; Z98.41 Cataract extraction status, right eye; Z96.1 Presence of intraocular lens; Z95.0 Presence of cardiac pacemaker; Z98.890 Other specified postprocedural states; Z88.5 Allergy status to narcotic agent; Z88.8 Allergy status to other drugs, medicaments and biological substances; Z80.9 Family history of malignant neoplasm, unspecified; Z83.3 Family history of diabetes mellitus; Z82.0 Family history of epilepsy and other diseases of the nervous system
CPT/HCPCS: 31500; 32555; 36415; 36600; 70450; 71045; 71046; 74176; 76604; 80048; 80053; 82140; 82247; 82533; 82607; 82805; 82945; 83605; 83615; 83735; 83880; 84100; 84132; 84157; 84443; 84450; 84460; 84484; 85025; 85027; 85610; 85730; 86850; 86900; 86901; 87040; 87070; 87075; 87102; 87116; 87205; 87206; 87635; 88108; 88305; 89050; 93005; 93306; 93970; 94002; 94003; 94640; 94660; 94667; 94760; 96374; 99291

== ENCOUNTER 2020-06-07 00:12 | Inpatient (IN) | payer MEDICARE, BC ==
--- NOTE | 2020-06-07 01:37 | ED ---
General Adult HPI - General Chief complaint: Shortness of Breath Stated complaint: Altered Mental Status Time Seen by Provider: 06/07/20 00:30 Source: patient, EMS Mode of arrival: EMS Limitations: altered mental status - History of Present Illness Initial comments: This patient is an 89-year-old woman who is currently a care home reportedly to have rehabilitation. Patient is sent from care home after reportedly having altered mental status. Patient is reported to be disoriented and confused. When I see the patient, patient appears somnolent and possibly delirious. Not able to give much additional history. Patient denies pains. -: unknown - Related Data Home Medications Medication Instructions Recorded Confirmed Ergocalciferol (Vitamin D2) 50,000 unit PO SA@209912/03/17 06/07/20 [Vitamin D2] Levothyroxine Sodium 112 mcg PO DAILY@0612/03/17 06/07/20 carvediloL [Coreg] 3.125 mg PO BID@09,209909/16/19 06/07/20 Apixaban [Eliquis] 2.5 mg PO BID@0900,209903/05/20 06/07/20 Pantoprazole [Protonix] 40 mg PO DAILY@0600 03/05/20 06/07/20 Pravastatin Sodium [Pravachol] 40 mg PO DAILY@209903/05/20 06/07/20 Isosorbide Mononitrate ER [Imdur] 30 mg PO DAILY@0900 04/29/20 06/07/20 Potassium Chloride ER [K-Dur 10] 10 meq PO BID@0900,209904/29/20 06/07/20 ALPRAZolam [Xanax] 0.25 mg PO DAILY PRN 06/07/20 06/07/20 Doxycycline [Vibramycin] 100 mg PO BID@0900,209906/07/20 06/07/20 Furosemide [Lasix] 40 mg PO BID@0600,1400 06/07/20 06/07/20 Lactose-Reduced Food [Ensure Plus] 1 can PO TID@0900,1400,209906/07/20 06/07/20 Melatonin 1 mg PO HS@209906/07/20 06/07/20 Melatonin 10 mg PO HS@209906/07/20 06/07/20 Midodrine HCl [ProAmatine] 10 mg PO TID@0900,1300,2100 06/07/20 06/07/20 metOLazone [Zaroxolyn] 2.5 mg PO MOWEFR@0900 06/07/20 06/07/20 Previous Rx's Medication Instructions Recorded Ipratropium-Albuterol Nebulize 3 ml INHALATION RT-Q4H PRN #0 05/21/20 [Duoneb 0.5 mg-3 mg/3 ml Soln] Allergies Allergy/AdvReac Type Severity Reaction Status Date / Time brimonidine [From Simbrinza] Allergy Unknown Verified 06/07/20 10:03 brinzolamide [From Simbrinza] Allergy Unknown Verified 06/07/20 10:03 tramadol AdvReac Nausea & Verified 06/07/20 10:03 Vomiting Review of Systems ROS Statement: Those systems with pertinent positive or pertinent negative responses have been documented in the HPI. ROS Other: All systems not noted in ROS Statement are negative. Limitations: ROS unobtainable due to patients medical condition Cardiovascular: Denies: chest pain Gastrointestinal: Denies: abdominal pain Neurological: Denies: headache Past Medical History Past Medical History: Atrial Fibrillation, Coronary Artery Disease (CAD), Heart Failure, GERD/Reflux, Hyperlipidemia, Hypertension, Respiratory Disorder, Thyroid Disorder Additional Past Medical History / Comment(s): Coronary artery disease, chronic atrial fibrillation, hypertension, hyperlipidemia, chronic stage II kidney disease with a baseline creatinine of around 1.5, hypothyroidism, glaucoma, History of Any Multi-Drug Resistant Organisms: None Reported Past Surgical History: Cholecystectomy, Heart Catheterization With Stent, Hysterectomy, Orthopedic Surgery, Tonsillectomy Additional Past Surgical History / Comment(s): right knee replacement, carpal tunnel release, "thyroidectomy", fco feet -heel spurs, cataracts-lens implants. pacemarker September 2019 Past Anesthesia/Blood Transfusion Reactions: No Reported Reaction Date of Last Stent Placement:: 2013 Past Psychological History: No Psychological Hx Reported Smoking Status: Former smoker Past Alcohol Use History: None Reported Past Drug Use History: None Reported - Past Family History Daughter(s) Additional Family Medical History / Comment(s): short term memory loss Father Additional Family Medical History / Comment(s): denies family history of cancer or DM in her mother General Exam Limitations: no limitations Head exam: Present: atraumatic, normocephalic Eye exam: Present: normal appearance, PERRL, EOMI. Absent: scleral icterus, conjunctival injection ENT exam: Present: mucous membranes dry Neck exam: Present: normal inspection, full ROM. Absent: meningismus Respiratory exam: Present: rales Cardiovascular Exam: Present: regular rate, normal rhythm GI/Abdominal exam: Present: soft. Absent: distended, tenderness, guarding, rebound, rigid, mass Extremities exam: Present: normal inspection, normal capillary refill Back exam: Present: normal inspection. Absent: CVA tenderness (R), CVA tenderness (L) Neurological exam: Present: alert Skin exam: Present: warm, dry, intact, normal color. Absent: rash Course Vital Signs 06/07/20 06/07/20 06/07/20 00:33 03:26 03:29 Temperature Pulse Rate 71 62 Respiratory 24 24 22 Rate Blood Pressure 111/77 O2 Sat by Pulse 100 95 Oximetry 06/07/20 06/07/20 06/07/20 04:00 04:13 05:00 Temperature 98.3 F Pulse Rate 68 Respiratory 24 Rate Blood Pressure 92/52 99/73 O2 Sat by Pulse 94 L Oximetry EKG Findings - EKG Comments: EKG Findings:: I suspect the underlying rhythm is a paced rhythm with a rate of 67 bpm. There is a nonspecific intraventricular block. - EKG Results: EKG: interpreted by DEVON, normal axis, normal ST/T - Blocks, [place], Hypertrophy, ST Abn: AV and intraventricular conduction: intraventricular conduction delay Medical Decision Making - Medical Decision Making This patient is an 89-year-old woman transferred from rehab facility for altered mental status. Patient found to have hypercapnia. Suspect a multifactorial cause of her dyspnea including congestive heart failure some underlying pleural effusion and some COPD component. Patient also with chronic anemia Patient started on BiPAP and will be admitted for further treatment - Lab Data Result diagrams: 06/07/20 01:06/08/20 22:10 Lab Results 06/07/20 06/07/20 06/07/20 Range/Units 01:29 01: 01:29 WBC 3.7 L (3.8-10.6) k/uL RBC 3.09 L (3.80-5.40) m/uL Hgb 8.2 L (11.4-16.0) gm/dL Hct 26.9 L (34.0-46.0) % MCV 87.3 (80.0-100.0) fL MCH 26.6 (25.0-35.0) pg MCHC 30.5 L (31.0-37.0) g/dL RDW 17.1 H (11.5-15.5) % Plt Count 277 (150-450) k/uL MPV 7.9 Neutrophils % 78 % Lymphocytes % 12 % Monocytes % 7 % Eosinophils % 1 % Basophils % 0 % Neutrophils # 2.9 (1.3-7.7) k/uL Lymphocytes # 0.5 L (1.0-4.8) k/uL Monocytes # 0.3 (0-1.0) k/uL Eosinophils # 0.1 (0-0.7) k/uL Basophils # 0.0 (0-0.2) k/uL Hypochromasia Marked Poikilocytosis Slight Anisocytosis Slight PT 13.0 H (9.0-12.0) sec INR 1.3 H (<1.2) APTT 27.0 (22.0-30.0) sec D-Dimer 6.26 H (<0.60) mg/L FEU VBG pH (7.31-7.41) VBG pCO2 (37-51) mmHg VBG HCO3 (24-28) mmol/L Sodium 139 (137-145) mmol/L Potassium 5.3 H (3.5-5.1) mmol/L Chloride 93 L (98-107) mmol/L Carbon Dioxide 39 H (22-30) mmol/L Anion Gap 7 mmol/L BUN 86 H (7-17) mg/dL Creatinine 1.84 H (0.52-1.04) mg/dL Est GFR (CKD-EPI)AfAm 28 (>60 ml/min/1.73 sqM) Est GFR (CKD-EPI)NonAf 24 (>60 ml/min/1.73 sqM) Glucose 113 H (74-99) mg/dL Plasma Lactic Acid Jose (0.7-2.0) mmol/L Calcium 8.0 L (8.4-10.2) mg/dL Magnesium 2.7 H (1.6-2.3) mg/dL Total Bilirubin 0.5 (0.2-1.3) mg/dL AST 27 (14-36) U/L ALT 19 (4-34) U/L Alkaline Phosphatase 171 H (38-126) U/L Ammonia (<30) umol/L Troponin I (0.000-0.034) ng/mL NT-Pro-B Natriuret Pep pg/mL Total Protein 7.1 (6.3-8.2) g/dL Albumin 3.6 (3.5-5.0) g/dL Procalcitonin (0.02-0.09) ng/mL 06/07/20 06/07/20 06/07/20 Range/Units 01:29 01:29 01:29 WBC (3.8-10.6) k/uL RBC (3.80-5.40) m/uL Hgb (11.4-16.0) gm/dL Hct (34.0-46.0) % MCV (80.0-100.0) fL MCH (25.0-35.0) pg MCHC (31.0-37.0) g/dL RDW (11.5-15.5) % Plt Count (150-450) k/uL MPV Neutrophils % % Lymphocytes % % Monocytes % % Eosinophils % % Basophils % % Neutrophils # (1.3-7.7) k/uL Lymphocytes # (1.0-4.8) k/uL Monocytes # (0-1.0) k/uL Eosinophils # (0-0.7) k/uL Basophils # (0-0.2) k/uL Hypochromasia Poikilocytosis Anisocytosis PT (9.0-12.0) sec INR (<1.2) APTT (22.0-30.0) sec D-Dimer (<0.60) mg/L FEU VBG pH (7.31-7.41) VBG pCO2 (37-51) mmHg VBG HCO3 (24-28) mmol/L Sodium (137-145) mmol/L Potassium (3.5-5.1) mmol/L Chloride (98-107) mmol/L Carbon Dioxide (22-30) mmol/L Anion Gap mmol/L BUN (7-17) mg/dL Creatinine (0.52-1.04) mg/dL Est GFR (CKD-EPI)AfAm (>60 ml/min/1.73 sqM) Est GFR (CKD-EPI)NonAf (>60 ml/min/1.73 sqM) Glucose (74-99) mg/dL Plasma Lactic Acid Jose 1.3 (0.7-2.0) mmol/L Calcium (8.4-10.2) mg/dL Magnesium (1.6-2.3) mg/dL Total Bilirubin (0.2-1.3) mg/dL AST (14-36) U/L ALT (4-34) U/L Alkaline Phosphatase (38-126) U/L Ammonia 40 H (<30) umol/L Troponin I 0.015 (0.000-0.034) ng/mL NT-Pro-B Natriuret Pep 3970 pg/mL Total Protein (6.3-8.2) g/dL Albumin (3.5-5.0) g/dL Procalcitonin (0.02-0.09) ng/mL 06/07/20 06/07/20 Range/Units 01:29 01:47 WBC (3.8-10.6) k/uL RBC (3.80-5.40) m/uL Hgb (11.4-16.0) gm/dL Hct (34.0-46.0) % MCV (80.0-100.0) fL MCH (25.0-35.0) pg MCHC (31.0-37.0) g/dL RDW (11.5-15.5) % Plt Count (150-450) k/uL MPV Neutrophils % % Lymphocytes % % Monocytes % % Eosinophils % % Basophils % % Neutrophils # (1.3-7.7) k/uL Lymphocytes # (1.0-4.8) k/uL Monocytes # (0-1.0) k/uL Eosinophils # (0-0.7) k/uL Basophils # (0-0.2) k/uL Hypochromasia Poikilocytosis Anisocytosis PT (9.0-12.0) sec INR (<1.2) APTT (22.0-30.0) sec D-Dimer (<0.60) mg/L FEU VBG pH 7.38 (7.31-7.41) VBG pCO2 68 H (37-51) mmHg VBG HCO3 39 H (24-28) mmol/L Sodium (137-145) mmol/L Potassium (3.5-5.1) mmol/L Chloride (98-107) mmol/L Carbon Dioxide (22-30) mmol/L Anion Gap mmol/L BUN (7-17) mg/dL Creatinine (0.52-1.04) mg/dL Est GFR (CKD-EPI)AfAm (>60 ml/min/1.73 sqM) Est GFR (CKD-EPI)NonAf (>60 ml/min/1.73 sqM) Glucose (74-99) mg/dL Plasma Lactic Acid Jose (0.7-2.0) mmol/L Calcium (8.4-10.2) mg/dL Magnesium (1.6-2.3) mg/dL Total Bilirubin (0.2-1.3) mg/dL AST (14-36) U/L ALT (4-34) U/L Alkaline Phosphatase (38-126) U/L Ammonia (<30) umol/L Troponin I (0.000-0.034) ng/mL NT-Pro-B Natriuret Pep pg/mL Total Protein (6.3-8.2) g/dL Albumin (3.5-5.0) g/dL Procalcitonin 0.05 (0.02-0.09) ng/mL Disposition Clinical Impression: D-dimer, elevated, CHF exacerbation, Chronic kidney disease, Hypercapnia, Dyspnea Disposition: ADMITTED IP TO THIS HOSP Condition: Poor
--- NOTE | 2020-06-07 01:53 | XR ---
EXAM: XR Chest, 1 View CLINICAL HISTORY: ITS.REASON XR Reason: altered mental status TECHNIQUE: Frontal view of the chest. COMPARISON: 05/20/2020 FINDINGS: Lungs: Moderate bilateral effusions, greater on the right with bibasilar atelectasis/consolidation. Bilateral perihilar opacities, greater on the right. Pleural space: Unremarkable. No pneumothorax. Heart: Cardiac silhouette is stable. Mediastinum: Unremarkable. Bones/joints: Osteopenia. Degenerative changes in the shoulders and thoracic spine. Vasculature: Calcification thoracic aorta. Tubes, lines and devices: Left chest wall pacer. IMPRESSION: 1. Moderate bilateral effusions, greater on the right with bibasilar atelectasis/consolidation. 2. Bilateral perihilar opacities, greater on the right. Findings may represent pulmonary edema or pneumonia.
--- NOTE | 2020-06-07 01:55 | CT ---
EXAM: CT Head Without Intravenous Contrast CLINICAL HISTORY: ITS.REASON CT Reason: mental status change TECHNIQUE: Axial computed tomography images of the head/brain without intravenous contrast. CTDI is 49.27 mGy and DLP is 1068.4 mGy-cm. This CT exam was performed using one or more of the following dose reduction techniques: automated exposure control, adjustment of the mA and/or kV according to patient size, and/or use of iterative reconstruction technique. COMPARISON: 05/16/2020 FINDINGS: Brain: Mild chronic low-attenuation in the white matter. Cerebral and cerebellar volume loss, not out of portion to patient's age. No hemorrhage. 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 Bones/joints: Unremarkable. No acute fracture. Soft tissues: Unremarkable. Sinuses: Unremarkable as visualized. No acute sinusitis. Mastoid air cells: Unremarkable as visualized. No mastoid effusion. IMPRESSION: No acute intracranial pathology.
[2020-06-07 03:10] LABS: Albumin 3.6 g/dL (3.5-5.0); Lactic Acid, Venous 1.3 mmol/L (0.7-2.0); Magnesium 2.7 mg/dL (1.6-2.3); Potassium 5.3 mmol/L (3.5-5.1); Total Bilirubin 0.5 mg/dL (0.2-1.3); Total Protein 7.1 g/dL (6.3-8.2)
[2020-06-07 03:14] LABS: INR 1.3 (<1.2)
[2020-06-07 03:16] LABS: D-Dimer 6.26 mg/L FEU (<0.60)
[2020-06-07 03:20] LABS: Anisocytosis Slight; Basophils % (A) 0 %; Eosinophils # (A) 0.1 k/uL (0-0.7); Eosinophils % (A) 1 %; HCT 26.9 % (34.0-46.0); HGB 8.2 gm/dL (11.4-16.0); Hypochromasia Marked; Lymphocytes # (A) 0.5 k/uL (1.0-4.8); Lymphocytes % (A) 12 %; MCH 26.6 pg (25.0-35.0); MCHC 30.5 g/dL (31.0-37.0); MCV 87.3 fL (80.0-100.0); Mean Platelet Volume 7.9; Monocytes # (A) 0.3 k/uL (0-1.0); Monocytes % (A) 7 %; Neutrophils # (A) 2.9 k/uL (1.3-7.7); Neutrophils % (A) 78 %; Platelet Count 277 k/uL (150-450); Poikilocytosis Slight; RBC 3.09 m/uL (3.80-5.40); RDW 17.1 % (11.5-15.5); WBC 3.7 k/uL (3.8-10.6)
[2020-06-07 03:28] LABS: VBG PH 7.38 (7.31-7.41)
[2020-06-07] MEDS ORDERED: ENOXAPARIN 60 MG/0.6 ML SYRINGE SQ STA (03:48)
[2020-06-07] MEDS ORDERED: methylPREDNISolone SOD SUCCI 125 MG/2 ML VIAL IV STA (05:16)
[2020-06-07] MEDS ORDERED: PIPERACILLIN-TAZOBACTAM 3.375 GM in SODIUM CHLORIDE 0.9% 100 ML IVPB STA (05:20)
[2020-06-07] MEDS ORDERED: SODIUM CHLORIDE 0.9% 1,000 ML IV SCH (05:30)
[2020-06-07] MEDS ORDERED: methylPREDNISolone SOD SUCCI 125 MG/2 ML VIAL IV SCH (06:00)
[2020-06-07 06:16] LABS: Glucose,Whole Blood 94 mg/dL (75-99)
[2020-06-07] MEDS: LEVOTHYROXINE 112 MCG TAB PO SCH (06:27)
[2020-06-07] MEDS: IPRATROPIUM-ALBUTEROL 3 ML NEB INHALATION SCH ×4 (07:51→20:30)
[2020-06-07] MEDS: BUDESONIDE 0.5 MG/2 ML NEBU INHALATION SCH ×2 (07:51→20:30)
[2020-06-07] MEDS ORDERED: ALPRAZolam 0.25 MG TAB PO STA (08:29)
[2020-06-07] MEDS: ISOSORBIDE MONONITRATE ER 30 MG TAB.ER.24H PO SCH (08:35)
[2020-06-07] MEDS: APIXABAN 2.5 MG TABLET PO SCH ×2 (08:35→21:42)
--- NOTE | 2020-06-07 08:35 | P.HPIM ---
History of Present Illness H&P Date: 06/07/20 Chief Complaint: Altered mental status and shortness of breath This is a 89-year-old female with very complex past medical history noted below who presented to the emergency room from a local residential with confusion and shortness of breath. Apparently patient was very confused last night and was not answering any questions. She is more awake and alert this morning. She is oriented to herself and to the place. Patient is overall a poor historian. She reports shortness of breath. She knows that she was at [facility] for physical therapy. Patient was sent to the ER for further evaluation confusion. Patient was hypoxic in the ER and was on 8 L of oxygen via nasal cannula. Apparently she was on BiPAP overnight. she is on 3 L of oxygen at baseline. Patient was seen by me this morning. She was getting a breathing treatment. She was having audible wheezing across the room. She appeared anxious. Review of Systems Review of system: 14 points review of systems were obtained and were negative except to what were mentioned in the HPI. Past Medical History Past Medical History: Atrial Fibrillation, Coronary Artery Disease (CAD), Heart Failure, GERD/Reflux, Hyperlipidemia, Hypertension, Respiratory Disorder, Thyroid Disorder Additional Past Medical History / Comment(s): Coronary artery disease, chronic atrial fibrillation, hypertension, hyperlipidemia, chronic stage II kidney disease with a baseline creatinine of around 1.5, hypothyroidism, glaucoma, History of Any Multi-Drug Resistant Organisms: None Reported Past Surgical History: Cholecystectomy, Heart Catheterization With Stent, Hysterectomy, Orthopedic Surgery, Tonsillectomy Additional Past Surgical History / Comment(s): right knee replacement, carpal tunnel release, "thyroidectomy", fco feet -heel spurs, cataracts-lens implants. pacemarker September 2019 Past Anesthesia/Blood Transfusion Reactions: No Reported Reaction Date of Last Stent Placement:: 2013 Past Psychological History: No Psychological Hx Reported Smoking Status: Former smoker Past Alcohol Use History: None Reported Past Drug Use History: None Reported - Past Family History Daughter(s) Additional Family Medical History / Comment(s): short term memory loss Father Additional Family Medical History / Comment(s): denies family history of cancer or DM in her mother Medications and Allergies Home Medications Medication Instructions Recorded Confirmed Type Ergocalciferol (Vitamin D2) 50,000 unit PO SA@2100 12/03/17 05/26/20 History [Vitamin D2] Levothyroxine Sodium 112 mcg PO DAILY@0600 12/03/17 05/26/20 History carvediloL [Coreg] 3.125 mg PO BID@09,209909/16/19 05/26/20 History Apixaban [Eliquis] 2.5 mg PO BID@0900,2100 03/05/20 05/26/20 History Pantoprazole [Protonix] 40 mg PO DAILY@89903/05/20 05/26/20 History Pravastatin Sodium [Pravachol] 40 mg PO DAILY@89903/05/20 05/26/20 History Isosorbide Mononitrate ER [Imdur] 30 mg PO DAILY 04/29/20 05/26/20 History Potassium Chloride ER [K-Dur 10] 10 meq PO DAILY@89904/29/20 05/26/20 History Furosemide [Lasix] 40 mg PO BID #60 tablet 05/21/20 05/26/20 Rx Ipratropium-Albuterol Nebulize 3 ml INHALATION RT-Q4H PRN #0 05/21/20 05/26/20 Rx [Duoneb 0.5 mg-3 mg/3 ml Soln] Melatonin 5 mg PO HS tablet 05/21/20 05/26/20 Rx Allergies Allergy/AdvReac Type Severity Reaction Status Date / Time brimonidine [From Simbrinza] Allergy Unknown Verified 05/26/20 09:42 brinzolamide [From Simbrinza] Allergy Unknown Verified 05/26/20 09:42 tramadol AdvReac Nausea & Verified 05/26/20 09:42 Vomiting Physical Exam Vitals: Vital Signs Temp Pulse Pulse Resp BP BP Pulse Ox 06/07/20 08:07 100 06/07/20 08:00 97.9 F 63 20 121/69 99 06/07/20 07:51 88 06/07/20 06:39 97.9 F 65 34 H 146/94 92 L 06/07/20 05:00 68 24 99/73 94 L 06/07/20 04:13 98.3 F 06/07/20 04:00 92/52 06/07/20 03:29 62 22 95 06/07/20 03:26 24 06/07/20 00:33 71 24 111/77 100 Intake and Output 06/06/20 06/07/20 06/07/20 21:59 06:59 14:59 Other: Weight General: The patient is awake and alert, in no distress Eye: there is normal conjunctiva bilaterally. Neck: The neck is supple, there is no JVD. Cardiovascular: Normal S1-S2, no S3-S4, no murmurs. Respiratory: Lungs diffuse wheezing all over the chest Gastrointestinal: Abdomen is soft, nontender Musculoskeletal: There is no pedal edema. Neurological:. Speech is normal. Skin: Skin is warm and dry Results CBC & Chem 7: 06/07/20 01:29 06/07/20 01:29 Labs: Abnormal Lab Results - Last 24 Hours (Table) 06/07/20 06/07/20 06/07/20 Range/Units 01: 01:29 01:29 WBC 3.7 L (3.8-10.6) k/uL RBC 3.09 L (3.80-5.40) m/uL Hgb 8.2 L (11.4-16.0) gm/dL Hct 26.9 L (34.0-46.0) % MCHC 30.5 L (31.0-37.0) g/dL RDW 17.1 H (11.5-15.5) % Lymphocytes # 0.5 L (1.0-4.8) k/uL PT 13.0 H (9.0-12.0) sec INR 1.3 H (<1.2) D-Dimer 6.26 H (<0.60) mg/L FEU VBG pCO2 (37-51) mmHg VBG HCO3 (24-28) mmol/L Potassium 5.3 H (3.5-5.1) mmol/L Chloride 93 L (98-107) mmol/L Carbon Dioxide 39 H (22-30) mmol/L BUN 86 H (7-17) mg/dL Creatinine 1.84 H (0.52-1.04) mg/dL Glucose 113 H (74-99) mg/dL Calcium 8.0 L (8.4-10.2) mg/dL Magnesium 2.7 H (1.6-2.3) mg/dL Alkaline Phosphatase 171 H (38-126) U/L Ammonia (<30) umol/L 06/07/20 06/07/20 Range/Units 01:29 01:47 WBC (3.8-10.6) k/uL RBC (3.80-5.40) m/uL Hgb (11.4-16.0) gm/dL Hct (34.0-46.0) % MCHC (31.0-37.0) g/dL RDW (11.5-15.5) % Lymphocytes # (1.0-4.8) k/uL PT (9.0-12.0) sec INR (<1.2) D-Dimer (<0.60) mg/L FEU VBG pCO2 68 H (37-51) mmHg VBG HCO3 39 H (24-28) mmol/L Potassium (3.5-5.1) mmol/L Chloride (98-107) mmol/L Carbon Dioxide (22-30) mmol/L BUN (7-17) mg/dL Creatinine (0.52-1.04) mg/dL Glucose (74-99) mg/dL Calcium (8.4-10.2) mg/dL Magnesium (1.6-2.3) mg/dL Alkaline Phosphatase (38-126) U/L Ammonia 40 H (<30) umol/L Assessment and Plan Assessment: This is a 89-year-old female with very complex past medical history noted below who presented to the emergency room with worsening confusion and hypoxia. Patient was evaluated in the ER and admitted to the hospital for further management of her medical Marte noted below. 1. Acute on chronic diastolic heart failure exacerbation. I will start patient on IV Lasix 40 mg twice daily. We will continue to monitor I's and O's closely. Chest x-ray showed evidence of fluid overload and bilateral pleural effusion. During last admission a month ago IR consulted and attempted thoracentesis yielded only minimal amount of fluids. 2. Acute toxo metabolic encephalopathy on admission. May be attributed to hypercapnia. Arterial blood gas was not done in the ER. Patient overall mentation improved with BiPAP use. I would obtain urinalysis to rule out underlying UTI. 3. Acute on chronic hypoxic respiratory failure secondary to fluid overload. Improved with BiPAP use. Currently satting 99% on 3 L of oxygen by nasal cannula. Wheezing is probably secondary to pulmonary edema. We will continue his Lasix and bronchodilators. I would discontinue IV steroids as this may e xacerbate her heart failure even further. 4. Stage IIIB chronic kidney disease, creatinine seems around baseline of 1.8. We will continue to monitor closely 5. Chronic atrial fibrillation on anticoagulation with Eliquis 6. Moderate pulmonary hypertension 7. Patient is full code based on her wishes Today, I reviewed her medication list and lab work results. Patient was started on IV antibiotic with Zosyn and azithromycin in the ER. I doubt pneumonia clinically. I would obtain pro-calcitonin for further evaluation. May discontinue antibiotic. Acetone is normal. No evidence of sepsis. Discontinue IV fluids. Pulmonology consulted by ER staff, appreciate recommendations.
[2020-06-07] MEDS: PANTOPRAZOLE 40 MG TABLET PO SCH (08:36)
[2020-06-07] MEDS: carvediloL 3.125 MG TAB PO SCH ×2 (08:36→21:41)
[2020-06-07] MEDS: PRAVASTATIN SODIUM 40 MG TAB PO SCH (08:36)
[2020-06-07] MEDS: FUROSEMIDE 10 MG/ML 4 ML VIAL IV SCH ×2 (08:36→21:42)
[2020-06-07] MEDS ORDERED: AZITHROMYCIN 500 MG in SODIUM CHLORIDE 0.9% 250 ML IVPB SCH (09:00)
[2020-06-07] MEDS ORDERED: FUROSEMIDE 40 MG TAB PO SCH (09:00)
[2020-06-07 09:08] LABS: Appearance,Urine Clear (Clear); Bilirubin,Urine Negative (Negative); Blood,Urine Negative (Negative); Color,Urine Yellow; Glucose,Urine (UA) Negative (Negative); Ketones,Urine Negative (Negative); Leukocyte Esterase,Urine Negative (Negative); Nitrite,Urine Negative (Negative); Protein,Urine Negative (Negative); Specific Gravity,Urine 1.009 (1.001-1.035); Urobilinogen,Urine <2.0 mg/dL (<2.0)
[2020-06-07 11:04] LABS: ABG Base Excess 13.3 mmol/L; ABG HCO3 39 mmol/L (21-25); ABG Oxygen Saturation 88.3 % (94-97); ABG PCO2 69 mmHg (35-45); ABG PH 7.36 (7.35-7.45); ABG TCO2 41 mmol/L (19-24); Allen Test Performed? Yes
[2020-06-07 11:09] LABS: ABG PO2 57 mmHg (83-108)
[2020-06-07] MEDS ORDERED: PIPERACILLIN-TAZOBACTAM 3.375 GM in SODIUM CHLORIDE 0.9% 100 ML IVPB SCH (14:00)
--- NOTE | 2020-06-07 15:22 | P.CNPUL ---
History of Present Illness Consult date: 06/07/20 Requesting physician: Garrett Ayala Reason for consult: COPD Chief complaint: Altered mental status and shortness of breath. History of present illness: This is an 89-year-old female with history of multiple medical problems including chronic diastolic congestive heart failure, valvular heart disease, coronary artery disease, chronic atrial fibrillation, previous pacemaker implantation, patient was brought in from the correction with mostly mental status change. And she was noted to be experiencing some shortness of breath. Patient had a similar presentation back on May 15, and we saw her at the time on consultation, and I felt that the patient had acute hypoxic and hypercapnic respiratory failure. Patient again had a similar presentation with low pO2 and high pCO2, but pH seems to be in the 7.36 range. And her pCO2 is in the mid 60s. With a pO2 of 57. Patient also had a chest x-ray that showed evidence of congestive heart failure, and bilateral pleural effusions, p reviously she had thoracentesis, and the fluid was clearly transudative in nature, clearly cardiogenic in nature. At any rate patient is known to have normal LV function, she has moderate mitral regurgitation, and I'm suspecting that she has diastolic congestive heart failure, likely chronic. On her previous admission, the patient had to be intubated and mechanically ventilated, and she was eventually extubated uneventfully. The patient herself is a very poor historian, could not get much information from the patient because he seems to be nonverbal. Review of Systems ROS unobtainable: due to mental status Past Medical History Past Medical History: Atrial Fibrillation, Coronary Artery Disease (CAD), Heart Failure, GERD/Reflux, Hyperlipidemia, Hypertension, Respiratory Disorder, Thyroid Disorder Additional Past Medical History / Comment(s): Coronary artery disease, chronic atrial fibrillation, hypertension, hyperlipidemia, chronic stage II kidney disease with a baseline creatinine of around 1.5, hypothyroidism, glaucoma, History of Any Multi-Drug Resistant Organisms: None Reported Past Surgical History: Cholecystectomy, Heart Catheterization With Stent, Hysterectomy, Orthopedic Surgery, Tonsillectomy Additional Past Surgical History / Comment(s): right knee replacement, carpal tunnel release, "thyroidectomy", fco feet -heel spurs, cataracts-lens implants. pacemarker September 2019 Past Anesthesia/Blood Transfusion Reactions: No Reported Reaction Date of Last Stent Placement:: 2013 Past Psychological History: No Psychological Hx Reported Smoking Status: Former smoker Past Alcohol Use History: None Reported Past Drug Use History: None Reported - Past Family History Daughter(s) Additional Family Medical History / Comment(s): short term memory loss Father Additional Family Medical History / Comment(s): denies family history of cancer or DM in her mother Medications and Allergies Home Medications Medication Instructions Recorded Confirmed Type Ergocalciferol (Vitamin D2) 50,000 unit PO SA@209912/03/17 06/07/20 History [Vitamin D2] Levothyroxine Sodium 112 mcg PO DAILY@59912/03/17 06/07/20 History carvediloL [Coreg] 3.125 mg PO BID@899,209909/16/19 06/07/20 History Apixaban [Eliquis] 2.5 mg PO BID@0900,209903/05/20 06/07/20 History Pantoprazole [Protonix] 40 mg PO DAILY@59903/05/20 06/07/20 History Pravastatin Sodium [Pravachol] 40 mg PO DAILY@209903/05/20 06/07/20 History Isosorbide Mononitrate ER [Imdur] 30 mg PO DAILY@0904/29/20 06/07/20 History Potassium Chloride ER [K-Dur 10] 10 meq PO BID@0900,209904/29/20 06/07/20 History Ipratropium-Albuterol Nebulize 3 ml INHALATION RT-Q4H PRN #0 05/21/20 06/07/20 Rx [Duoneb 0.5 mg-3 mg/3 ml Soln] ALPRAZolam [Xanax] 0.25 mg PO DAILY PRN 06/07/20 06/07/20 History Doxycycline [Vibramycin] 100 mg PO BID@0900,209906/07/20 06/07/20 History Furosemide [Lasix] 40 mg PO BID@0600,1400 06/07/20 06/07/20 History Lactose-Reduced Food [Ensure Plus] 1 can PO TID@0900,1400,209906/07/20 06/07/20 History Melatonin 1 mg PO HS@209906/07/20 06/07/20 History Melatonin 10 mg PO HS@209906/07/20 06/07/20 History Midodrine HCl [ProAmatine] 10 mg PO TID@0900,1300,2100 06/07/20 06/07/20 History metOLazone [Zaroxolyn] 2.5 mg PO MOWEFR@0900 06/07/20 06/07/20 History Allergies Allergy/AdvReac Type Severity Reaction Status Date / Time brimonidine [From Simbrinza] Allergy Unknown Verified 06/07/20 10:03 brinzolamide [From Simbrinza] Allergy Unknown Verified 06/07/20 10:03 tramadol AdvReac Nausea & Verified 06/07/20 10:03 Vomiting Physical Exam Vitals: Vital Signs Temp Pulse Pulse Resp BP BP Pulse Ox 06/07/20 13:37 88 29 H 06/07/20 11:50 98.0 F 88 29 H 120/71 93 L 06/07/20 11:25 87 06/07/20 11:15 86 06/07/20 08:07 100 06/07/20 08:00 97.9 F 63 20 121/69 99 06/07/20 07:51 88 06/07/20 06:39 97.9 F 65 34 H 146/94 92 L 06/07/20 05:00 68 24 99/73 94 L 06/07/20 04:13 98.3 F 06/07/20 04:00 92/52 06/07/20 03:29 62 22 95 06/07/20 03:26 24 06/07/20 00:33 71 24 111/77 100 Intake and Output 06/07/20 06/07/20 06/07/20 06:59 14:59 22:59 Other: Voiding Method Diaper # Voids 1 # Bowel Movements 1 Weight GENERAL EXAM: Revealed a 89-year-old female on few liters nasal cannula, 2 L, and she has BiPAP at bedside, in no distress. Head: Atraumatic, normocephalic. EENT: PERRLA, EOMI, nonicteric, no neck masses, no JVD, no stridor. CHEST: No chest wall deformity. Symmetrical expansion. LUNGS: Diminished breath sounds and crackles at the bases. CVS: Regular rate and rhythm, normal S1 and S2, no gallops, 2/6 systolic murmur throughout the precordium. ABDOMEN: Soft, nontender. No hepatosplenomegaly, normal bowel sounds, no guarding or rigidity. EXTREMITIES: No clubbing, no edema, no cyanosis, 2+ pulses and upper and lower extremities. MUSCULOSKELETAL: No deformities, could not assess muscle strength, patient is nonverbal and not cooperative. SKIN: No rashes CENTRAL NERVOUS SYSTEM: Awake, but does not follow any instructions, seems to be confused. Results - Laboratory Findings CBC and BMP: 06/07/20 01:29 06/07/20 01:29 ABG ABG pH 7.36 (7.35-7.45) 06/07/20 10:51 ABG pCO2 69 mmHg (35-45) H 06/07/20 10:51 ABG pO2 57 mmHg (83-108) L* 06/07/20 10:51 ABG O2 Saturation 88.3 % (94-97) L 06/07/20 10:51 PT/INR, D-dimer PT 13.0 sec (9.0-12.0) H 06/07/20 01:29 INR 1.3 (<1.2) H 06/07/20 01:29 D-Dimer 6.26 mg/L FEU (<0.60) H 06/07/20 01:29 Abnormal lab findings: Abnormal Labs 06/07/20 06/07/20 06/07/20 01:29 01:29 01:29 WBC 3.7 L RBC 3.09 L Hgb 8.2 L Hct 26.9 L MCHC 30.5 L RDW 17.1 H Lymphocytes # 0.5 L PT 13.0 H INR 1.3 H D-Dimer 6.26 H ABG pCO2 ABG pO2 ABG HCO3 ABG Total CO2 ABG O2 Saturation VBG pCO2 VBG HCO3 Potassium 5.3 H Chloride 93 L Carbon Dioxide 39 H BUN 86 H Creatinine 1.84 H Glucose 113 H Calcium 8.0 L Magnesium 2.7 H Alkaline Phosphatase 171 H Ammonia 06/07/20 06/07/20 06/07/20 01:29 01:47 10:51 WBC RBC Hgb Hct MCHC RDW Lymphocytes # PT INR D-Dimer ABG pCO2 69 H ABG pO2 57 L* ABG HCO3 39 H ABG Total CO2 41 H ABG O2 Saturation 88.3 L VBG pCO2 68 H VBG HCO3 39 H Potassium Chloride Carbon Dioxide BUN Creatinine Glucose Calcium Magnesium Alkaline Phosphatase Ammonia 40 H - Diagnostic Findings Chest x-ray: image reviewed (As noted in HPI, consistent with CHF and bilateral pleural effusions noted.) Assessment and Plan Assessment: Acute hypoxic and hypercapnic respiratory failure secondary to acute on chronic diastolic congestive heart failure and chronic recurrent transudate of right- sided pleural effusion Acute toxic metabolic encephalopathy secondary to hypercapnia. Chronic kidney disease. Stage IIIB. Chronic atrial fibrillation. Valvular heart disease, aortic stenosis and mitral regurgitation. Chronic anemia History of coronary artery disease and previous PCI. History of hypothyroidism. History of GERD. Dyslipidemia. Acute toxic metabolic encephalopathy secondary to hypoxia and hypercapnia on presentation. Secondary pulmonary hypertension. Recommendation: Continue present supportive care measures. Continue oxygen via nasal cannula and must use BiPAP if tolerated by the patient. Continue diuretics. Continue bronchodilators. Resume home cardiac meds. Continue anticoagulation therapy. No plans to do thoracentesis on this patient as the patient will likely improve with diuretics only. We'll continue to follow, and will have follow-up chest x-ray in a.m. Time with Patient: Greater than 30
[2020-06-07] MEDS ORDERED: LORazepam 2 MG/ML INJ IV STA ×2 (15:49→16:02)
[2020-06-07 16:51] LABS: Glucose,Whole Blood 139 mg/dL (75-99)
[2020-06-07 20:09] LABS: Glucose,Whole Blood 202 mg/dL (75-99)
[2020-06-08 06:13] LABS: Glucose,Whole Blood 121 mg/dL (75-99)
[2020-06-08] MEDS: LEVOTHYROXINE 112 MCG TAB PO SCH (07:06)
[2020-06-08 07:13] LABS: Calcium 7.4 mg/dL (8.4-10.2); Magnesium 2.7 mg/dL (1.6-2.3); Potassium 5.2 mmol/L (3.5-5.1)
[2020-06-08] MEDS: BUDESONIDE 0.5 MG/2 ML NEBU INHALATION SCH ×2 (07:55→19:41)
[2020-06-08] MEDS: IPRATROPIUM-ALBUTEROL 3 ML NEB INHALATION SCH ×4 (07:55→19:41)
[2020-06-08] MEDS: FUROSEMIDE 10 MG/ML 4 ML VIAL IV SCH (08:33)
[2020-06-08] MEDS: PRAVASTATIN SODIUM 40 MG TAB PO SCH (08:33)
[2020-06-08] MEDS: APIXABAN 2.5 MG TABLET PO SCH ×2 (08:33→21:12)
[2020-06-08] MEDS: ISOSORBIDE MONONITRATE ER 30 MG TAB.ER.24H PO SCH (08:33)
[2020-06-08] MEDS: PANTOPRAZOLE 40 MG TABLET PO SCH (08:33)
[2020-06-08] MEDS: carvediloL 3.125 MG TAB PO SCH ×2 (08:33→21:12)
--- NOTE | 2020-06-08 10:14 | P.CNNES ---
History of Present Illness Consult date: 06/08/20 Requesting physician: Garrett Ayala Reason for Consult: altered mental status and "jerkiness" History of Present Illness: This is an 89-year-old woman with medical history of chronic atrial fibrillation on eliquis, hyperlipidemia, hypertension, coronary artery disease, hypothyroidism who presented to the emergency department on 06/07/2020 from her nursing facility for altered mental status and shortness of breath. History was obtained from medical records since patient was extremely short of breath. In the ED the patient was hypoxic and was on 8 L of oxygen nasal cannula per primary team. Patient reports shortness of breath and she was getting physical therapy at [facility]. Apparently she was on BiPAP overnight when she presented to the hospital and baseline she is on 3 L of oxygen. Initial vital signs as blood pressure of 111/77 heart rate of 71, temperature of 98.3 Fahrenheit axillary, respiratory of 24, patient's pulse ox is 100% on 3 L of nasal cannula. Then the patient the FiO2 was 28 and the respiratory rate was in the 20s 2 and has got high as 34 and oxygen was 94 on liters on BiPAP. CT of the head is reported no acute intracranial pathology. Chest x-ray was reported as moderate bilateral effusion, greater on the right with by basilar atelectasis/console ventilation. Bilateral perihilar opacity greater on the right. Finding may represent pulmonary edema or pneumonia. EKG is reported as wide QRS rhythm. Nonspecific intraventricular block. Anterolateral infarct, age undetermined. Abnormal EKG. Initial white blood cells 7.3. Hemoglobin is 8.2. Potassium is 5.3 which is high. BUN is 86 and a creatinine is 1.84. Repeated creatinine is 2.41. AST of 27 ALT of 19. Ammonia level is 40 which is a slightly high. Calcium 7.4 and it's a serum which is low magnesium is 2.7 slightly high. Serum glucose 113. Seems that the patient received 0.5 mg of Ativan on the 06/07/2020 around the 1549 seems that the patient was agitated upon reviewing records. Review of Systems Review of system is limited but pertinent positive and negative as per HPI. Past Medical History Past Medical History: Atrial Fibrillation, Coronary Artery Disease (CAD), Heart Failure, GERD/Reflux, Hyperlipidemia, Hypertension, Respiratory Disorder, Thyroid Disorder Additional Past Medical History / Comment(s): Coronary artery disease, chronic atrial fibrillation, hypertension, hyperlipidemia, chronic stage II kidney disease with a baseline creatinine of around 1.5, hypothyroidism, glaucoma, History of Any Multi-Drug Resistant Organisms: None Reported Past Surgical History: Cholecystectomy, Heart Catheterization With Stent, Hysterectomy, Orthopedic Surgery, Tonsillectomy Additional Past Surgical History / Comment(s): right knee replacement, carpal tunnel release, "thyroidectomy", fco feet -heel spurs, cataracts-lens implants. pacemarker September 2019 Past Anesthesia/Blood Transfusion Reactions: No Reported Reaction Date of Last Stent Placement:: 2013 Past Psychological History: No Psychological Hx Reported Smoking Status: Former smoker Past Alcohol Use History: None Reported Past Drug Use History: None Reported - Past Family History Daughter(s) Additional Family Medical History / Comment(s): short term memory loss Father Additional Family Medical History / Comment(s): denies family history of cancer or DM in her mother Medications and Allergies Home Medications Medication Instructions Recorded Confirmed Type Ergocalciferol (Vitamin D2) 50,000 unit PO SA@209912/03/17 06/07/20 History [Vitamin D2] Levothyroxine Sodium 112 mcg PO DAILY@59912/03/17 06/07/20 History carvediloL [Coreg] 3.125 mg PO BID@899,209909/16/19 06/07/20 History Apixaban [Eliquis] 2.5 mg PO BID@899,209903/05/20 06/07/20 History Pantoprazole [Protonix] 40 mg PO DAILY@59903/05/20 06/07/20 History Pravastatin Sodium [Pravachol] 40 mg PO DAILY@209903/05/20 06/07/20 History Isosorbide Mononitrate ER [Imdur] 30 mg PO DAILY@89904/29/20 06/07/20 History Potassium Chloride ER [K-Dur 10] 10 meq PO BID@899,209904/29/20 06/07/20 History Ipratropium-Albuterol Nebulize 3 ml INHALATION RT-Q4H PRN #0 05/21/20 06/07/20 Rx [Duoneb 0.5 mg-3 mg/3 ml Soln] ALPRAZolam [Xanax] 0.25 mg PO DAILY PRN 06/07/20 06/07/20 History Doxycycline [Vibramycin] 100 mg PO BID@0900,2100 06/07/20 06/07/20 History Furosemide [Lasix] 40 mg PO BID@0600,1400 06/07/20 06/07/20 History Lactose-Reduced Food [Ensure Plus] 1 can PO TID@0900,1400,2100 06/07/20 06/07/20 History Melatonin 1 mg PO HS@209906/07/20 06/07/20 History Melatonin 10 mg PO HS@2100 06/07/20 06/07/20 History Midodrine HCl [ProAmatine] 10 mg PO TID@0900,1300,2100 06/07/20 06/07/20 History metOLazone [Zaroxolyn] 2.5 mg PO MOWEFR@0900 06/07/20 06/07/20 History Allergies Allergy/AdvReac Type Severity Reaction Status Date / Time brimonidine [From Simbrinza] Allergy Unknown Verified 06/07/20 10:03 brinzolamide [From Simbrinza] Allergy Unknown Verified 06/07/20 10:03 tramadol AdvReac Nausea & Verified 06/07/20 10:03 Vomiting Physical Examination - Vital Signs Vital Signs: Vital Signs Temp Pulse Pulse Resp BP Pulse Ox 06/08/20 08:07 70 06/08/20 07:55 70 06/08/20 04:00 97.6 F 71 26 H 119/68 95 06/08/20 02:00 68 28 H 06/08/20 00:00 97.6 F 68 28 H 112/62 97 06/07/20 20:46 71 06/07/20 20:30 68 92 L 06/07/20 20:00 97.8 F 72 32 H 143/67 100 06/07/20 15:33 82 06/07/20 15:28 97.9 F 71 33 H 81/62 100 06/07/20 15:21 80 06/07/20 13:37 88 29 H 06/07/20 11:50 98.0 F 88 29 H 120/71 93 L 06/07/20 11:25 87 06/07/20 11:15 86 Intake and Output 03/14/21 03/15/21 03/15/21 22:59 06:59 14:59 Other: Voiding Method Diaper Diaper # Voids 1 Weight 70 kg GENERAL: The patient is lying in bed and seems in moderate respiratory distress. CHEST: The heart rate is regular rate rhythm. No murmurs to auscultation. LUNG: Wheezing throughout and is tachypneic. ABDOMEN/GI: Bowel sounds present in all 4 quadrants. No tenderness to palpation throughout. NEUROLOGICAL: Higher mental function: The patient is drowsy but awakeable. She is oriented to self and place. She did not respond to year. She is able to name objects correctly (pen, watch and phone). Patient is following simple commands. No aphasia and no neglect. Cranial nerves: The pupils are round, equal and reactive to light. Visual singer are full to confrontation throughout. Extraocular movement is intact no nystagmus is noted. The facial strength is normal throughout. Tongue is midline and moved [id number] without any difficulty. No dysarthria is noted. Rest of cranial nerves are hard to assess because of her cooperation. Motor: Gait is deferred because of her condition. The strength is able to move all extremities above gravity without focality. Normal tone and bulk. She had myoclonic jerks of bilateral upper extremities/shoulder > trunk region . Cerebellum: Unable to assess. Sensation: Sensation is normal to touch throughout. Reflexes (right/left): 2+ upper extremities and unable to test lowers because of her cooperation. Plantars are downgoing bilaterally. Results Urinalysis is negative for urinary tract infection. Silva virus PCR was not detected. - Laboratory Findings CBC and BMP: 06/07/20 01:29 06/08/20 06:26 Abnormal Lab Findings: Abnormal Labs 06/07/20 06/07/20 06/07/20 01:29 01:29 01:29 WBC 3.7 L RBC 3.09 L Hgb 8.2 L Hct 26.9 L MCHC 30.5 L RDW 17.1 H Lymphocytes # 0.5 L PT 13.0 H INR 1.3 H D-Dimer 6.26 H ABG pCO2 ABG pO2 ABG HCO3 ABG Total CO2 ABG O2 Saturation VBG pCO2 VBG HCO3 Potassium 5.3 H Chloride 93 L Carbon Dioxide 39 H BUN 86 H Creatinine 1.84 H Glucose 113 H POC Glucose (mg/dL) Calcium 8.0 L Magnesium 2.7 H Alkaline Phosphatase 171 H Ammonia 03/14/21 03/14/21 03/14/21 01:29 01:47 10:51 WBC RBC Hgb Hct MCHC RDW Lymphocytes # PT INR D-Dimer ABG pCO2 69 H ABG pO2 57 L* ABG HCO3 39 H ABG Total CO2 41 H ABG O2 Saturation 88.3 L VBG pCO2 68 H VBG HCO3 39 H Potassium Chloride Carbon Dioxide BUN Creatinine Glucose POC Glucose (mg/dL) Calcium Magnesium Alkaline Phosphatase Ammonia 40 H 06/07/20 06/07/20 06/08/20 16:50 20:08 06:12 WBC RBC Hgb Hct MCHC RDW Lymphocytes # PT INR D-Dimer ABG pCO2 ABG pO2 ABG HCO3 ABG Total CO2 ABG O2 Saturation VBG pCO2 VBG HCO3 Potassium Chloride Carbon Dioxide BUN Creatinine Glucose POC Glucose (mg/dL) 139 H 202 H 121 H Calcium Magnesium Alkaline Phosphatase Ammonia 06/08/20 06:26 WBC RBC Hgb Hct MCHC RDW Lymphocytes # PT INR D-Dimer ABG pCO2 ABG pO2 ABG HCO3 ABG Total CO2 ABG O2 Saturation VBG pCO2 VBG HCO3 Potassium 5.2 H Chloride 97 L Carbon Dioxide 35 H BUN 102 H* Creatinine 2.41 H Glucose 121 H POC Glucose (mg/dL) Calcium 7.4 L Magnesium 2.7 H Alkaline Phosphatase Ammonia Assessment and Plan Assessment: This is an 89-year-old woman that with multiple medical problems who presented to the emergency department on 06/07/2020 from her nursing facility for altered mental status and shortness of breath. Altered mental status is seems metabolic encephalopathy (acute hypoxic and hypercapnic respiratory failure, acute kidney injury on chronic kidney insuffiency, slight elevated ammonia) Myoclonic jersk seems metabolic induced (due to acute hypoxic and hypercapnic respiratory failure and acute on chronic kidney insuffiency). Acute hypoxic and hypercapnic respiratory failure secondary due to acute on chronic diastolic congestive heart failure and chronic recurrent ad transudate of the right sided pleural effusion Acute on chronic kidney insufficiency Chronic anemia Chronic atrial fibrillation on Eliquis History of hypothyroidism Hypertension Dyslipidemia Plan: I ordered ionized calcium. We'll defer the metabolic encephalopathy and electrolyte imbalance to the primary team. If ammonia worsens then we'll defer the management to the primary team. TSH is 5.24 which is slightly elevated and was done on 06/06/2020 but the free T4 is 1.67 which is normal. I started the patient on prophylactic Keppra 500mg 1 tab bid and if her condition improves down the line we can taper and discontinue Keppra since this myoclonus seems more metabolic induced.. Pulmonary team is on board. The plan was discussed with the patient's nurse. Thank you for the consultation. Francisco Angel M.D. Neuro-hospitalist Time with Patient: Greater than 30
[2020-06-08] MEDS: levETIRAcetam 500 MG TAB PO SCH ×2 (10:45→21:12)
[2020-06-08 12:02] LABS: Glucose,Whole Blood 125 mg/dL (75-99)
--- NOTE | 2020-06-08 12:04 | P.NPCON ---
History of Present Illness - Reason for Consult acute renal failure, chronic renal failure - History of Present Illness Reason for consultation: Acute kidney injury on chronic kidney disease History of present illness: Patient is a 89-year-old female seen in renal consultation for acute kidney injury on chronic kidney disease. Patient has chronic kidney disease stage IV with baseline creatinine in the range of 1.5-2. Creatinine was 1.85 on admission and is up to 2.4 today. She is currently maintained on IV Lasix 40 mg twice daily. Blood pressure has been stable but was on the lower side this mor vviian. Patient's currently sitting up in chair. She is not a reliable historian. She is not responding to verbal commands. Currently on 4 L nasal cannula. Patient presented to the hospital last night from [facility]. She was sent over due to altered mental status. She was more confused. Chest x-ray suggestive of fluid overload with moderate bilateral pleural effusions. She does not have a Esparza catheter. Patient is incontinent. Brain CT revealed no acute pathology. BUN is elevated at 102. Hemoglobin 8.2. She is not on steroids. Vital signs are stable. General: The patient appeared well nourished and normally developed. HEENT: Head exam is unremarkable. Neck is without jugular venous distension. LUNGS: Breath sounds decreased. HEART: Rate and Rhythm are regular. ABDOMEN: Soft, nontender. EXTREMITITES: Trace edema. Past Medical History Past Medical History: Atrial Fibrillation, Coronary Artery Disease (CAD), Heart Failure, GERD/Reflux, Hyperlipidemia, Hypertension, Respiratory Disorder, Thyroid Disorder Additional Past Medical History / Comment(s): Coronary artery disease, chronic atrial fibrillation, hypertension, hyperlipidemia, chronic stage II kidney disease with a baseline creatinine of around 1.5, hypothyroidism, glaucoma, History of Any Multi-Drug Resistant Organisms: None Reported Past Surgical History: Cholecystectomy, Heart Catheterization With Stent, Hysterectomy, Orthopedic Surgery, Tonsillectomy Additional Past Surgical History / Comment(s): right knee replacement, carpal tunnel release, "thyroidectomy", fco feet -heel spurs, cataracts-lens implants. pacemarker September 2019 Past Anesthesia/Blood Transfusion Reactions: No Reported Reaction Date of Last Stent Placement:: 2013 Past Psychological History: No Psychological Hx Reported Smoking Status: Former smoker Past Alcohol Use History: None Reported Past Drug Use History: None Reported - Past Family History Daughter(s) Additional Family Medical History / Comment(s): short term memory loss Father Additional Family Medical History / Comment(s): denies family history of cancer or DM in her mother Medications and Allergies Home Medications Medication Instructions Recorded Confirmed Type Ergocalciferol (Vitamin D2) 50,000 unit PO SA@209912/03/17 06/07/20 History [Vitamin D2] Levothyroxine Sodium 112 mcg PO DAILY@0612/03/17 06/07/20 History carvediloL [Coreg] 3.125 mg PO BID@09,209909/16/19 06/07/20 History Apixaban [Eliquis] 2.5 mg PO BID@0900,209903/05/20 06/07/20 History Pantoprazole [Protonix] 40 mg PO DAILY@59903/05/20 06/07/20 History Pravastatin Sodium [Pravachol] 40 mg PO DAILY@209903/05/20 06/07/20 History Isosorbide Mononitrate ER [Imdur] 30 mg PO DAILY@0904/29/20 06/07/20 History Potassium Chloride ER [K-Dur 10] 10 meq PO BID@0900,209904/29/20 06/07/20 History Ipratropium-Albuterol Nebulize 3 ml INHALATION RT-Q4H PRN #0 05/21/20 06/07/20 Rx [Duoneb 0.5 mg-3 mg/3 ml Soln] ALPRAZolam [Xanax] 0.25 mg PO DAILY PRN 06/07/20 06/07/20 History Doxycycline [Vibramycin] 100 mg PO BID@0900,209906/07/20 06/07/20 History Furosemide [Lasix] 40 mg PO BID@0600,1400 06/07/20 06/07/20 History Lactose-Reduced Food [Ensure Plus] 1 can PO TID@0900,1400,209906/07/20 06/07/20 History Melatonin 1 mg PO HS@209906/07/20 06/07/20 History Melatonin 10 mg PO HS@209906/07/20 06/07/20 History Midodrine HCl [ProAmatine] 10 mg PO TID@0900,1300,209906/07/20 06/07/20 History metOLazone [Zaroxolyn] 2.5 mg PO MOWEFR@0900 06/07/20 06/07/20 History Allergies Allergy/AdvReac Type Severity Reaction Status Date / Time brimonidine [From Simbrinza] Allergy Unknown Verified 06/07/20 10:03 brinzolamide [From Simbrinza] Allergy Unknown Verified 06/07/20 10:03 tramadol AdvReac Nausea & Verified 06/07/20 10:03 Vomiting Physical Exam Vitals: Vital Signs Temp Pulse Pulse Resp BP Pulse Ox 06/08/20 11:29 97.7 F 57 L 24 90/54 98 06/08/20 11:06 70 06/08/20 10:57 68 06/08/20 08:28 97.6 F 67 34 H 154/63 94 L 06/08/20 08:07 70 06/08/20 08:00 67 34 H 06/08/20 07:55 70 06/08/20 04:00 97.6 F 71 26 H 119/68 95 06/08/20 02:00 68 28 H 06/08/20 00:00 97.6 F 68 28 H 112/62 97 06/07/20 20:46 71 06/07/20 20:30 68 92 L 06/07/20 20:00 97.8 F 72 32 H 143/67 100 06/07/20 15:33 82 06/07/20 15:28 97.9 F 71 33 H 81/62 100 06/07/20 15:21 80 06/07/20 13:37 88 29 H Intake and Output 06/07/20 06/08/20 06/08/20 22:59 06:59 14:59 Intake Total 120 Balance 120 Intake: Oral 120 Other: Voiding Method Diaper Diaper Diaper # Voids 1 Weight 70 kg Results - Lab Results Most recent lab results ABG pH 7.36 (7.35-7.45) 06/07/20 10:51 ABG pCO2 69 mmHg (35-45) H 06/07/20 10:51 ABG pO2 57 mmHg (83-108) L* 06/07/20 10:51 ABG HCO3 39 mmol/L (21-25) H 06/07/20 10:51 ABG O2 Saturation 88.3 % (94-97) L 06/07/20 10:51 Calcium 7.4 mg/dL (8.4-10.2) L 06/08/20 06:26 Magnesium 2.7 mg/dL (1.6-2.3) H 06/08/20 06:26 06/07/20 01:29 06/08/20 06:26 Assessment and Plan Plan: Assessment: 1. Acute kidney injury secondary to ATN secondary to cardiorenal syndrome. Creatinine 2.41 today. UA benign. 2. Acute on chronic diastolic CHF and moderate pulmonary hypertension. 3. Volume overload. Improved with diuresis. 4. Acute hypoxic respiratory failure. 5. Elevated BUN secondary to acute kidney injury/diuresis. She is not on steroids. Rule out GI bleed. 6. Pleural effusions. Pulmonology following. No plans for thoracentesis at this time. 7. Chronic kidney disease stage IV secondary to nephrosclerosis with baseline creatinine in the range of 1.5-2. Plan: Decrease Lasix to 40 mg IV once daily. Check renal ultrasound. Avoid nephrotoxins. Continue to monitor renal function and urine output. Check stool for occult blood. Thank you for the consultation. I will continue to follow the patient with you during her hospital stay.
[2020-06-08] MEDS ORDERED: LORazepam 0.5 MG TAB PO PRN ×2 (12:20→13:23)
--- NOTE | 2020-06-08 13:29 | P.PN ---
Subjective Progress Note Date: 06/08/20 Patient is awake and alert today. She had worsening generalized myoclonic jerks since yesterday afternoon that responded well to Ativan. Her kidney function is worsening. Nursing staff or having difficulties obtaining accurate urine output documentation as patient is incontinent. Objective - Vital Signs Vital signs: Vital Signs Temp 97.7 F 06/08/20 11:29 Pulse 57 L 06/08/20 13:08 Resp 24 06/08/20 13:08 BP 90/54 06/08/20 11:29 Pulse Ox 98 06/08/20 11:29 Intake & Output 06/07/20 06/08/20 06/08/20 18:59 06:59 18:59 Intake Total 120 Balance 120 Weight 70 kg Intake: Oral 120 Other: Voiding Method Diaper Diaper Diaper # Voids 1 1 2 # Bowel Movements 1 - Exam General: The patient is awake and alert, in no distress Eye: there is normal conjunctiva bilaterally. Neck: The neck is supple, there is no JVD. Cardiovascular: Normal S1-S2, no S3-S4, no murmurs. Respiratory: Lungs clear to auscultation bilaterally Gastrointestinal: Abdomen is soft, nontender Musculoskeletal: There is +1 pedal edema. Neurological:. Speech is normal. Skin: Skin is warm and dry - Labs CBC & Chem 7: 06/07/20 01:29 06/08/20 06:26 Labs: Abnormal Lab Results - Last 24 Hours (Table) 06/07/20 06/07/20 06/08/20 Range/Units 16:50 20:08 06:12 Potassium (3.5-5.1) mmol/L Chloride (98-107) mmol/L Carbon Dioxide (22-30) mmol/L BUN (7-17) mg/dL Creatinine (0.52-1.04) mg/dL Glucose (74-99) mg/dL POC Glucose (mg/dL) 139 H 202 H 121 H (75-99) mg/dL Calcium (8.4-10.2) mg/dL Ionized Calcium Barry (4.5-5.3) mg/dL Magnesium (1.6-2.3) mg/dL 06/08/20 06/08/20 06/08/20 Range/Units 06:26 09:08 12:01 Potassium 5.2 H (3.5-5.1) mmol/L Chloride 97 L (98-107) mmol/L Carbon Dioxide 35 H (22-30) mmol/L BUN 102 H* (7-17) mg/dL Creatinine 2.41 H (0.52-1.04) mg/dL Glucose 121 H (74-99) mg/dL POC Glucose (mg/dL) 125 H (75-99) mg/dL Calcium 7.4 L (8.4-10.2) mg/dL Ionized Calcium Barry 3.8 L (4.5-5.3) mg/dL Magnesium 2.7 H (1.6-2.3) mg/dL Microbiology - Last 24 Hours (Table) 06/07/20 01:35 Blood Culture - Preliminary Blood No Growth after 24 hours 06/07/20 01:29 Blood Culture - Preliminary Blood No Growth after 24 hours Assessment and Plan Assessment: This is a 89-year-old female with very complex past medical history noted below who presented to the emergency room with worsening confusion and hypoxia. Patient was evaluated in the ER and admitted to the hospital for further management of her medical Marte noted below. 1. Acute on chronic diastolic heart failure exacerbation. I started patient on IV Lasix 40 mg twice daily. This was changed today to 40 mg once a day secondary to worsening kidney function. Unable to obtain accurate I's and O's as patient is incontinent.. Chest x-ray showed evidence of fluid overload and bilateral pleural effusion. During last admission a month ago IR consulted and attempted thoracentesis yielded only minimal amount of fluids. I would repeat chest x-ray in the morning for follow-up 2. Acute toxo metabolic encephalopathy on admission. May be attributed to hypercapnia. Arterial blood gas was not done in the ER. Patient overall mentation improved with BiPAP use. No evidence of UTI on urinalysis 3. Acute on chronic hypoxic respiratory failure secondary to fluid overload. Improved with BiPAP use. Currently satting 99% on 3 L of oxygen by nasal cannula. Wheezing is probably secondary to pulmonary edema also improved. We will continue Lasix and bronchodilators. 4. Acute kidney injury on Stage IIIB chronic kidney disease, creatinine seems around baseline of 1.8. Worsening kidney function is probably secondary to cardiorenal syndrome. Nephrology consulted for further evaluation, appreciate recommendations. Ultrasound of the kidneys ordered. We will continue to monitor closely 5. Chronic atrial fibrillation on anticoagulation with Eliquis 6. Moderate pulmonary hypertension 7. Patient is full code based on her wishes also discussed with her son over the phone by nursing staff Patient has been having generalized myoclonic jerks that improved significantly with Ativan. She was seen and evaluated by neurology. This was thought to be attributed to underlying metabolic derangement with acute kidney failure and hypercapnia. Her ammonia level was slightly elevated on presentation and repeat lab work ordered. She was started on Keppra 500 mg twice daily by neurology with plan to taper dose and discontinue eventually when mild clonus improved. No EEG ordered at this time. We will continue to monitor closely. Repeat lab work in the morning.
[2020-06-08 14:03] VITALS: BMI 27.3
--- NOTE | 2020-06-08 14:31 | US ---
EXAMINATION TYPE: US kidneys/renal and bladder DATE OF EXAM: 06/08/2020 COMPARISON: NONE CLINICAL HISTORY: fredo. FREDO EXAM MEASUREMENTS: Right Kidney: 8.6 x 3.3 x 3.5 cm Left Kidney: 9.1 x 4.3 x 3.6 cm Difficult exam, pt sitting up and moving during exam Right Kidney: Atrophic in appearance . No hydronephrosis or nephrolithiasis. Left Kidney: Difficult to visualize due to overlying bowel gas, no evidence of hydronephrosis. No nep hrolithiasis. Bladder: Unable to visualize due to pt sitting up and moving during exam IMPRESSION: 1. Atrophy of the right kidney with no evidence of hydronephrosis or nephrolithiasis bilaterally.
--- NOTE | 2020-06-08 15:44 | P.PN ---
Subjective Progress Note Date: 06/08/20 Principal diagnosis: COPD exacerbation. This is an 89-year-old female with history of multiple medical problems including chronic diastolic congestive heart failure, valvular heart disease, coronary artery disease, chronic atrial fibrillation, previous pacemaker implantation, patient was brought in from the longterm with mostly mental status change. And she was noted to be experiencing some shortness of breath. Patient had a similar presentation back on May 15, and we saw her at the time on consultation, and I felt that the patient had acute hypoxic and hypercap [place] respiratory failure. Patient again had a similar presentation with low pO2 and high pCO2, but pH seems to be in the 7.36 range. And her pCO2 is in the mid 60s. With a pO2 of 57. Patient also had a chest x-ray that showed evidence of congestive heart failure, and bilateral pleural effusions, previously she had thoracentesis, and the fluid was clearly transudative in nature, clearly cardiogenic in nature. At any rate patient is known to have normal LV function, she has moderate mitral regurgitation, and I'm suspecting that she has diastolic congestive heart failure, likely chronic. On her previous admission, the patient had to be intubated and mechanically ventilated, and she was eventually extubated uneventfully. The patient herself is a very poor historian, could not get much information from the patient because he seems to be nonverbal. Progress note dated 06/08/2020. This is a 89-year-old female with a history of acute hypoxemic and hypercapnic respiratory failure, secondary to acute on chronic diastolic CHF and chronic recurrent transudate of right-sided pleural effusion. The patient also has metabolic encephalopathy, secondary to her hypercapnia, stage III chronic kidney disease, chronic atrial fibrillation, valvular heart disease, chronic anemia, CAD with previous PCI, hypothyroidism, GERD, hyperlipidemia, and secondary pulmonary hypertension. Currently, the patient's non-verbal. She was given some Ativan last night for her tremors. We think that that is a bad idea given her age. Her most recent labs show a white count of 3.7, hemoglobin 8.2, hematocrit 26.9, platelet count 277,000. PT 13, INR 1.3, PTT 27, d-dimer 6.26. Blood gases show pO2 of 57, a pCO2 of 69, and a pH is 7.36. Hence, she is a chronic CO2 retainer, and all sedatives, hypnotics, narcotics, and tranquilizers should be used with extreme caution or not at all. Sodium 143, potassium 5.2, chloride 97, CO2 35, anion gap 11, BUN 102, and creatinine 2.41. N-terminal proBNP 3970. Chest x-ray from June 07 chills moderate bilateral effusions, greater on the right, with atelectasis and possible consolidation, as well as bilateral perihilar infiltrates. In my opinion, her overall pattern, is consistent with pulmonary edema more so than pneumonia, especially with a pro-calcitonin level that is 0.05. Objective - Vital Signs Vital signs: Vital Signs Temp 97.7 F 06/08/20 11:29 Pulse 57 L 06/08/20 13:08 Resp 24 06/08/20 13:08 BP 90/54 06/08/20 11:29 Pulse Ox 98 06/08/20 11:29 Intake & Output 06/07/20 06/08/20 06/08/20 18:59 06:59 18:59 Intake Total 120 Balance 120 Weight 70 kg 70 kg Intake: Oral 120 Other: Voiding Method Diaper Diaper Diaper # Voids 1 1 2 # Bowel Movements 1 - Exam No acute distress, the patient's nonverbal. Her nasal cannula were not even in her nose when I went to see the patient today. HEENT examination is within normal range. Neck supple full range of motion. No adenopathy, thyromegaly, or neck vein distention. Cardiovascular examination reveals regular rhythm rate. Heart sounds are distant. A grade 2/6 systolic murmurs noted. Heart rate is 57 bpm. Pulmonary examination reveals diminished breath sounds, and crackles at the bases. No wheezes or rhonchi. Abdomen soft. No bowel sounds are noted. No tenderness on palpation. Extremities are intact. No cyanosis clubbing or edema. Skin without rash. Neurologic examination is difficult to assess. Patient does not open her eyes or speaks very much at all. - Labs CBC & Chem 7: 06/07/20 01:29 06/08/20 06:26 Labs: Abnormal Lab Results - Last 24 Hours (Table) 06/07/20 06/07/20 06/08/20 Range/Units 16:50 20:08 06:12 Potassium (3.5-5.1) mmol/L Chloride (98-107) mmol/L Carbon Dioxide (22-30) mmol/L BUN (7-17) mg/dL Creatinine (0.52-1.04) mg/dL Glucose (74-99) mg/dL POC Glucose (mg/dL) 139 H 202 H 121 H (75-99) mg/dL Calcium (8.4-10.2) mg/dL Ionized Calcium Barry (4.5-5.3) mg/dL Magnesium (1.6-2.3) mg/dL 06/08/20 06/08/20 06/08/20 Range/Units 06:26 09:08 12:01 Potassium 5.2 H (3.5-5.1) mmol/L Chloride 97 L (98-107) mmol/L Carbon Dioxide 35 H (22-30) mmol/L BUN 102 H* (7-17) mg/dL Creatinine 2.41 H (0.52-1.04) mg/dL Glucose 121 H (74-99) mg/dL POC Glucose (mg/dL) 125 H (75-99) mg/dL Calcium 7.4 L (8.4-10.2) mg/dL Ionized Calcium Barry 3.8 L (4.5-5.3) mg/dL Magnesium 2.7 H (1.6-2.3) mg/dL Microbiology - Last 24 Hours (Table) 06/07/20 01:35 Blood Culture - Preliminary Blood No Growth after 24 hours 06/07/20 01:29 Blood Culture - Preliminary Blood No Growth after 24 hours Assessment and Plan Assessment: Acute hypoxemic and hypercapnic respiratory failure, secondary to acute on chronic diastolic CHF. Recurrent transudative right-sided pleural effusion. Acute toxic/metabolic encephalopathy, secondary to chronic hypercapnic respiratory failure. Stage III chronic kidney disease. Chronic atrial fibrillation. Aortic stenosis, and mitral regurgitation. Chronic anemia. History of CAD, with previous PCI. Hypothyroidism. History of hyperlipidemia. History of GERD. Secondary pulmonary hypertension. Plan: Plan dated 06/08/2020. We will continue with current supportive measures. The patient will continue on oxygen and/or use BiPAP as tolerated. Continue with bronchodilators, and diuretics. Resume home cardiac medications. Continue with DVT and GI prophylaxis. No plans to do a thoracentesis at this time. The patient's pleural effusion should resolve on its own with continued therapy. We will continue to follow and make recommendations were appropriate. Prognosis is poor and CODE STATUS should be addressed. Time with Patient: Less than 30
[2020-06-08 17:13] LABS: Glucose,Whole Blood 121 mg/dL (75-99)
[2020-06-08 20:39] LABS: Glucose,Whole Blood 129 mg/dL (75-99)
[2020-06-08] MEDS ORDERED: CALCIUM GLUCONATE 1 GM in SODIUM CHLORIDE 0.9% 100 ML IVPB ONE (21:14)
--- NOTE | 2020-06-08 21:28 | P.EN ---
I was notified by RN to come evaluate the patient with difficulty detecting blood pressure , hypothermia , and worsening lethargy patient is 89 year old female with diastolic CHF, valvular heart disease, CKD III, afib on eliquis , hypothyroid She was admitted yesterday found to have acute metabolic encephalopathy with chronic hypercapnia and recurrent right pleural effusion , she was initially started on antibiotics for suspected pneumonia , and steroids for wheezing , and IV diuresis for diastolic CHF exacerbation. however, today antibiotics were stopped as pneumonia and infectious process was ruled out, procalcitonin was within normal limits. steroids were discontinued , as wheezing thought to be due to pulmonary edema . Neurology evaluated patient for myoclonic jerks , and keppra added today . upon evaluating patient , she is very lethargic but would open eyes to verbal stimulation , but drifts back to sleep quickly, this is definitely a change compared to physicians notes from this morning where she was easily arousable and oriented to self and place (per neurology note). I think this could be due to Keppra side effect , making her more drowsy. blood cultures are negative to date. on exam blood pressure 117/77 systolic , HR 63, oxygen sat 87 - 95% on 4 L NC patient drowsy , arousable to verbal stimulation , but drifts back to sleep , not following commands lungs shallow breathing, no wheezing distant heart sounds, positive murmur no leg edema bilaterally cold extremities, rectal temp 89.1 F assessment acute metabolic encephallopathy , worsening with new medication added , possible side effect of keppra hypothermia , possibly secondary to poor cardiac output , monitor urine output , and if decreases , then would consider pressors and moving patient to ICU chronic hypercapnic respiratory failure plan insert lopez cath to measure urine output , if she is making >30 cc per hour, this means she is perfusing her kidneys, as we are having difficulties getting accurate blood pressure reading due to myoclonic jerks hold PO meds (there is no night meds scheduled ) hold keppra ( I expect its worsening patient mental status due to its side effect) bear hugger for active warming , monitor vital signs check fresh labs , CMP, and phosphorus level replace calcium with one time dose IVPB calcium gluconate 1 gm address code status in AM with family again , patient is advanced age and multiple comorbidities , frequent admissions ( 4 in the past 4 months) has poor prognosis , I dont believe being full code is in her best interest, but definitely pursue full medical management with a plan to consider maximal comfort if patient not showing signs of improvement during this hospital stay. patient might require disposition to ICU to start her on pressors , will monitor vital sings and urine output closely 40 minutes spent in critical care time in the care of this patient .
[2020-06-08 23:02] LABS: Albumin 3.3 g/dL (3.5-5.0); Phosphorus 8.2 mg/dL (2.5-4.5); Potassium 5.5 mmol/L (3.5-5.1); Total Bilirubin 0.5 mg/dL (0.2-1.3); Total Protein 6.4 g/dL (6.3-8.2)
[2020-06-09] MEDS ORDERED: INSULIN REGULAR 100 UNIT/ML VIAL IV ONE (00:22)
[2020-06-09] MEDS ORDERED: DEXTROSE 50% SYRINGE 50 ML IVP STA (00:22)
[2020-06-09 02:14] VITALS: BP 123/87; PULSE 66; RESP 26; TEMP 91.7
[2020-06-09] MEDS ORDERED: SODIUM BICARB 8.4% 50 ML SYR (1 MEQ/ML) ONE (03:10)
[2020-06-09] MEDS ORDERED: EPINEPHrine 10 ML SYRINGE (0.1 MG/ML) ONE (03:10)
[2020-06-09 03:19] LABS: Glucose,Whole Blood 106 mg/dL (75-99)
[2020-06-09] MEDS ORDERED: CHLORHEXIDINE GLUCONATE 15 ML CUP MUCOUS MEM ONE (03:50)
--- NOTE | 2020-06-09 03:59 | P.EN ---
Code blue note patient had PEA cardiopulmonary arrest, CPR initiated following ACLS protocol, epi, bicarb pushed. patient intubated. patient had successful ROSC after 15 min of resuscitation , however was brief , then patient had bradycardia and lost pulse again. patient noted to develop percutaneous emphysema EKG done showing accelerated IVR xrays ordered , but patient lost pulse before we were able to perform the CXR due to advanced age, multiple comorbidities, valvular heart disease , diastolic CHF, and frequent hospitalization recently , recommendations from her physician earlier during the admission to address code status and consider no code. It appeared to me that further attempts to pursue CPR would be futile .. thus patient was pronounced . family was updated regarding the first code, and the son on the phone wanted to consider DNR, but wanted to discuss it with his brother. RN will update the family again regarding patient .
[2020-06-09] MEDS ORDERED: FUROSEMIDE 10 MG/ML 4 ML VIAL IV SCH (09:00)
--- NOTE | 2020-06-09 18:01 | P.DS ---
Providers Date of admission: 06/07/20 05:16 Expected date of discharge: 06/09/20 Attending physician: Joce Rubalcava MD Consults: 06/07/20 05:29 Consult Physician Urgent Consulting Provider: Willis Lewis Consult Reason/Comments: COPD exacerbation. Hypercapnia Do you want consulting provider notified?: Yes 06/07/20 15:50 Consult Physician Routine Consulting Provider: Francisco Angel Consult Reason/Comments: jerkiness, altered mental Do you want consulting provider notified?: Yes 06/08/20 10:41 Consult Physician Routine Consulting Provider: Jamila Chaudhary Consult Reason/Comments: FREDO on CKD Do you want consulting provider notified?: Yes Primary care physician: Chris Heath MD Hospital Course: Discharge Diagnosis: Patient Cardiac arrest Acute exacerbation of diastolic congestive heart failure Acute on chronic hypoxic hypercapnic respiratory failure Recurrent transudative right-sided pleural effusion Toxic metabolic encephalopathy secondary to chronic hypercapnic respiratory failure Acute kidney injury on chronic kidney disease stage III, hyperkalemia Chronic A. fib Mild aortic stenosis Chronic normocytic anemia Coronary artery disease with previous PCI Hypothyroidism Dyslipidemia GERD Secondary pulmonary hypertension Hospital Course: I was not involved in the direct care of this patient and only assisted with composing discharge summary Mrs. Simon was an 89-year-old female with a complex past medical history of atrial fibrillation, diastolic congestive heart failure, hypertension, dyslipidemia, chronic hypoxic respiratory fialure at 3L NC and chronic kidney disease stage II who was admitted from [facility] due to altered mentation. In the ER she initially required BiPap. CXR in the emergency room showed Moderate bilateral pleural effusion with opacification on the right. CT showed no acute process. Labs were consistent with her known anemia, Elevated potassium at 5.3, Cr 1.85 which was near her baseline, and BNP was elevated at 3960. She was diagnosed with acute on chronic diastolic heart failure exacerbation. She was started on Lasix 40 twice daily. She was seen by pulmonary who recommended continued use of BiPAP. ABG had been obtained which showed hypoxemia with a PaO2 of 57 and a compensated acidosis with CO2 of 69. She was seen by neurology. [place] to have metabolic encephalopathy with metabolic myoclonic jerking area and they recommended prophylactic Keppra 500 mg 1 tablet twice daily. She was noted to have worsening renal function morning of 06/08. She was seen by nephrology who decreased her Lasix to 40 mg once daily and recommended a renal ultrasound which showed atrophy of the right kidney with no evidence of hydronephrosis or nephrolithiasis. On the evening of 06/08 a rapid response was requested secondary to low blood pressure, hypothermia, and worsening lethargy. At that point in time a Esparza catheter was inserted to ensure strict I's and O's. Altered mentation was felt to be likely secondary to Keppra. He was placed on a bear hugger for active warming. Calcium was replaced with calcium gluconate. Early in the morning of 06/09 patient had a PDA cardiopulmonary arrest, there is a brief return of spontaneous circulation and she again lost pulses. Patient . Family was contacted by RN. A total of 25 minutes of time were spent preparing this complex discharge summary . Plan - Discharge Summary Discharge Rx Participant: No New Discharge Prescriptions: No Action Levothyroxine Sodium 112 mcg PO DAILY@0600 Ergocalciferol (Vitamin D2) [Vitamin D2] 50,000 unit PO SA@2100 carvediloL [Coreg] 3.125 mg PO BID@0900,2100 Pravastatin Sodium [Pravachol] 40 mg PO DAILY@2100 Apixaban [Eliquis] 2.5 mg PO BID@0900,2100 Pantoprazole [Protonix] 40 mg PO DAILY@0600 Potassium Chloride ER [K-Dur 10] 10 meq PO BID@0900,2100 Isosorbide Mononitrate ER [Imdur] 30 mg PO DAILY@0900 Ipratropium-Albuterol Nebulize [Duoneb 0.5 mg-3 mg/3 ml Soln] 3 ml INHALATION RT-Q4H PRN #0 PRN Reason: Wheezing ALPRAZolam [Xanax] 0.25 mg PO DAILY PRN PRN Reason: Anxiety Midodrine HCl [ProAmatine] 10 mg PO TID@0900,1300,2100 Lactose-Reduced Food [Ensure Plus] 1 can PO TID@0900,1400,2100 Furosemide [Lasix] 40 mg PO BID@0600,1400 Doxycycline [Vibramycin] 100 mg PO BID@0900,2100 metOLazone [Zaroxolyn] 2.5 mg PO MOWEFR@0900 Melatonin 10 mg PO HS@2100 Melatonin 1 mg PO HS@2100 Discharge Medication List Ergocalciferol (Vitamin D2) [Vitamin D2] 50,000 unit PO SA@209912/03/17 [History] Levothyroxine Sodium 112 mcg PO DAILY@59912/03/17 [History] carvediloL [Coreg] 3.125 mg PO BID@09,209909/16/19 [History] Apixaban [Eliquis] 2.5 mg PO BID@899,209903/05/20 [History] Pantoprazole [Protonix] 40 mg PO DAILY@59903/05/20 [History] Pravastatin Sodium [Pravachol] 40 mg PO DAILY@209903/05/20 [History] Isosorbide Mononitrate ER [Imdur] 30 mg PO DAILY@89904/29/20 [History] Potassium Chloride ER [K-Dur 10] 10 meq PO BID@899,209904/29/20 [History] Ipratropium-Albuterol Nebulize [Duoneb 0.5 mg-3 mg/3 ml Soln] 3 ml INHALATION RT-Q4H PRN #0 05/21/20 [Rx] ALPRAZolam [Xanax] 0.25 mg PO DAILY PRN 06/07/20 [History] Doxycycline [Vibramycin] 100 mg PO BID@899,209906/07/20 [History] Furosemide [Lasix] 40 mg PO BID@0600,139906/07/20 [History] Lactose-Reduced Food [Ensure Plus] 1 can PO TID@0900,1400,209906/07/20 [History] Melatonin 1 mg PO HS@209906/07/20 [History] Melatonin 10 mg PO HS@209906/07/20 [History] Midodrine HCl [ProAmatine] 10 mg PO TID@0900,1300,209906/07/20 [History] metOLazone [Zaroxolyn] 2.5 mg PO MOWEFR@89906/07/20 [History] Follow up Appointment(s)/Referral(s): Catia Caballero MD [STAFF PHYSICIAN] - 1-2 days [facility] [place], [NON-STAFF] - As Needed Discharge Disposition: - Preliminary Cause of Preliminary Cause of : acute CHF
--- NOTE | 2020-06-19 09:48 | CDI ---
Documentation Clarification Form Date: 06/19/2020 09:35:05 AM From: Beth Keyes CCS, CCDS Admit Date: 06/07/2020 05:16:00 AM Patient Name: Lolly Simon Visit Number: [id number] Discharge Date: 06/09/2020 05:17:00 AM ATTENTION: The Clinical Documentation Specialists (CDI) and [facility] Coding Staff appreciate your assistance in clarifying documentation. Please respond to the clarification below the line at the bottom and electronically sign. The CDI & [facility] Coding staff will review the response and follow-up if needed. Please note: Queries are made part of the Legal Health Record. If you have any questions, please contact the author of this message via ITS. Dr. Garrett Ayala: Conflicting documentation has been found in the medical record regarding the stage of Chronic Kidney Disease: Per the 06/08 Nephrology Consult: "Chronic kidney disease stage IV secondary to nephrosclerosis with baseline creatinine in the range of 1.5-2." Per the 06/07 History & Physical, subsequent Progress Notes & the 06/09 Discharge Summary: "Stage IIIB chronic kidney disease, creatinine seems around baseline of 1.8." History/Risk Factors per the 06/07 History & Physical Past Medical History: Chronic Atrial Fibrillation, Hypertension, Diastolic CHF, CKD II, Hyperlipidemia, CAD with stent. Clinical Indicators: Presented to the ED on 06/07 via EMS from a [facility] with SOB and Altered Mental Status. Admitted with elevated D-Dimer, CHF Exacerbation, CKD, Hypercapnia & Dyspnea. Per subsequent documentation & Code Blue Note 06/09: Patient became lethargic, hypothermic and in PEA, CPR administered but patient on 06/09. LABS: BUN 06/07: 86, 06/08 102, 06/08 116 Creatinine 06/07: 1.84, 06/08: 2.41, 06/08: 2.82 GFR 06/07: 24, 06/08: 17, 06/08: 14 Historical GFR: 04/20/2015: 34, 42 Treatment on admission 06/07: Lovenox sq, IV Solumedrol 125 mg x1, IV Zosyn, IV Fluid 1,000 mls @ 100 mls/hr q10H, INH Duoneb QID, INH Pulmicort BID, IV Azithromycin, IV Lasix 40 mg q12H, IV Ativan. In your opinion, please clarify the patient's stage of Chronic Kidney Disease: [ ] CKD II [ ] CKD III: [ ] stage 3a [ X ] stage 3b [ ] CKD IV Other, please specify: Unable to determine (Last Revision: June 2017) MTDD
== END 2020-06-09 05:17 | disposition expired | DRG 291 ==
LOC: EC 00:12 → 3SCARD 05:16
PROVIDERS: ADMIT Internal Medicine; ATTEND Internal Medicine
PROC: 5A09357 Assistance with Respiratory Ventilation, Less than 24 Consecutive Hours, Continuous Positive Airway Pressure (ICD-10-PCS; 2020-06-07)
PROC: 0BH17EZ Insertion of Endotracheal Airway into Trachea, Via Natural or Artificial Opening (ICD-10-PCS; principal; 2020-06-09)
PROC: 3E033XZ Introduction of Vasopressor into Peripheral Vein, Percutaneous Approach (ICD-10-PCS; principal; 2020-06-09)
PROC: 5A12012 Performance of Cardiac Output, Single, Manual (ICD-10-PCS; principal; 2020-06-09)
DX: I13.0 Hypertensive heart and chronic kidney disease with heart failure and stage 1 through stage 4 chronic kidney disease, or unspecified chronic kidney disease (principal); G92 Toxic encephalopathy; I50.33 Acute on chronic diastolic (congestive) heart failure; J96.21 Acute and chronic respiratory failure with hypoxia; J96.22 Acute and chronic respiratory failure with hypercapnia; N17.0 Acute kidney failure with tubular necrosis; I48.20 Chronic atrial fibrillation, unspecified; J44.1 Chronic obstructive pulmonary disease with (acute) exacerbation; J98.11 Atelectasis; E87.2 Acidosis; I46.2 Cardiac arrest due to underlying cardiac condition; G25.3 Myoclonus; I27.29 Other secondary pulmonary hypertension; T68.XXXA Hypothermia, initial encounter; E78.5 Hyperlipidemia, unspecified; E87.5 Hyperkalemia; E89.0 Postprocedural hypothyroidism; T42.6X5A Adverse effect of other antiepileptic and sedative-hypnotic drugs, initial encounter; I08.0 Rheumatic disorders of both mitral and aortic valves; I25.10 Atherosclerotic heart disease of native coronary artery without angina pectoris; N18.32 Chronic kidney disease, stage 3b; I45.4 Nonspecific intraventricular block; Z79.01 Long term (current) use of anticoagulants; D63.1 Anemia in chronic kidney disease; K21.9 Gastro-esophageal reflux disease without esophagitis; R32 Unspecified urinary incontinence; R79.1 Abnormal coagulation profile; R03.1 Nonspecific low blood-pressure reading; R45.1 Restlessness and agitation; H40.9 Unspecified glaucoma; Z90.89 Acquired absence of other organs; E83.42 Hypomagnesemia; Z98.42 Cataract extraction status, left eye; Z98.41 Cataract extraction status, right eye; Z96.1 Presence of intraocular lens; Z90.49 Acquired absence of other specified parts of digestive tract; Z90.710 Acquired absence of both cervix and uterus; Z79.890 Hormone replacement therapy; Z79.899 Other long term (current) drug therapy; Z87.891 Personal history of nicotine dependence; Z95.0 Presence of cardiac pacemaker; Z96.651 Presence of right artificial knee joint; Z98.61 Coronary angioplasty status
CPT/HCPCS: 36415; 36600; 70450; 71045; 76770; 80048; 80053; 81003; 82140; 82330; 82533; 82803; 82805; 83605; 83735; 83880; 84100; 84145; 84443; 84484; 85025; 85379; 85610; 85730; 87040; 87635; 93005; 94640; 94660; 94760; 96372; 96374; 99285